=== PATIENT | male | born 2000 | race African-American/Black ===

== ENCOUNTER 2021-11-21 18:52 | Inpatient (IN) ==
--- NOTE | 2021-11-21 19:02 | Emergency Department Note ---
Impression & Plan Foreign body in urethra, Foreign body ingestion, Depression ED Provider Note NAME: AL [id number] KRYSTLE AGE: 21 SEX: M : 2000 ARRIVES VIA: Walk-In INFORMANT: Patient, ED PROVIDER(S): Lex Mehta MD Chief Complaint: Foreign body ingestion HPI: Patient presents from [facility] after stating that he swallowed a very small thin piece of sheet metal as well as plastic approximately 4:30 PM. Patient also states that he placed metal as well as plastic down his urethra and states that he placed it at the far down his the base of the scrotum. Patient states that he does this because he is in protested and that he is depressed and suicidal. The patient states that he has not been able to urinate. The patient is concerned about a possible kidney or bladder infection. No recent falls or trauma. The patient does have a known history of doing this in the past. Patient states that he feels as though he does have some chest discomfort from the swallowed foreign body. He is currently retaining this on a string in his mouth. ROS: See HPI for pertinent positives and negatives. A total of 10 systems were reviewed and otherwise negative. Past medical history: See below Surgical history: See below Social history: See below Physical Exam: GENERAL: NAD, wearing a mask, non-toxic. Wearing augustin jumpsuit. EYE EXAM: Normal conjunctiva. PERRL, no anisocoria and EOM's grossly intact w/o pain. OROPHARYNX: Moist mucus membranes. Grossly normal dentition. Patient has a string in the left side of the mouth which is attached to a possible foreign body which is not visible in the posterior pharynx. NECK: Supple, no nuchal rigidity, no adenopathy, non-tender. No signs of meningismus. LUNGS: Clear to auscultation. Normal chest wall mechanics. HEART: NSR, no MRG. ABDOMEN: Abdomen soft, non-tender, normo-active bowel sounds, no masses, no rebound or guarding. BACK: No CVA TTP. SKIN: No rashes and no bruising. : Circumcised, bilateral testes descended, no obvious foreign bodies visua lized at the urethral meatus. UPPER EXTREMITIES: Upper extremities are grossly normal. LOWER EXTREMITIES: Grossly normal, no edema. NEURO EXAM: A&O x3, cranial nerves II-XII grossly intact, normal speech, moves all 4 extremities on command w/o issue. Differential diagnoses: Foreign body, esophageal tear, impaction, Schatzki ring, esophageal stricture, urethral foreign body among others were considered. Course: Patient was seen and evaluated the bedside. Full history physical exam was performed. Imaging Studies: See Below Cardiac monitoring: An order was placed for continuous cardiac monitoring. The monitor shows a rate of 92 with sinus rhythm. MDM: Patient was seen due to concern for placing multiple foreign bodies in the urethra as well as swallowing multiple foreign bodies. Patient did have bladder completed along with CTs of the chest abdomen pelvis to further evaluate for the plastic medical foreign bodies. Patient was noted to likely have 2 foreign bodies 1 within the stomach the other within the small bowel. Patient was also noted to have additional foreign bodies within the urethra. I did speak with the on-call trucking supervisor Dr. Villalobos who recommended that the patient undergo endoscopy for removal of the foreign body. The patient is amenable to having the procedure completed. I did speak the on- call urology service Pritesh Bateman PA-C who did evaluate the patient. I did speak the on-call hospitalist Dr. Davis and the patient was admitted to [facility] medicine service. Past Med/Surg History Medical History Depression H/O swallowed foreign body Surgical History H/O esophagogastroduodenoscopy Social History Smoking Status: Former smoker Tobacco Type: Cigarettes Preferred Language: Lao Current Living Situation Comment: Incarcerated at [facility] Feels Safe at Home: Yes Allergies Allergies Allergy/AdvReac Type Severity Reaction Status Date / Time No Known Allergies Allergy Unverified 11/21/21 20:20 Home Meds Home Medications Medication Instructions Recorded Confirmed paroxetine HCl 30 mg tablet 30 mg PO HS 12/02/20 11/21/21 ibuprofen 600 mg tablet 600 mg PO TID PRN 11/21/21 11/21/21 mirtazapine 30 mg tablet 30 mg PO HS 11/21/21 11/21/21 Results & Data (ED) Vital Signs Vital Signs - 24 hr 11/21/21 18:57 11/21/21 19:27 11/21/21 21:00 Temperature 36.9 C Temperature Source Oral Pulse Rate 97 H 87 Pulse Rate [Apical] 87 90 Pulse Rhythm Regular Pulse Rhythm [Apical] Regular Pulse Strength Normal Pulse Strength [Apical] Normal Respiratory Rate 16 17 18 Respiratory Effort / Characteristics Non-Labored Spontaneous Respiratory Depth Normal Respiratory Pattern Regular Blood Pressure 143/81 H Blood Pressure [Right Arm] 147/80 H 143/75 H Blood Pressure Mean 101 Blood Pressure Mean [Right Arm] 102 97 Blood Pressure Position Sitting Pulse Oximetry 100 100 99 Oxygen Delivery Method Room Air Room Air Room Air Sepsis Recent Fever Within 48 Hours No Sepsis New/Unexplained Change in Mental Status No Sepsis Action Taken by Nursing No Action Required Home Medications Current Medication List: was personally reviewed by me Laboratory Data Attestation: I reviewed the patient's lab results. Result diagrams: 11/21/21 19:44 11/21/21 19:44 Lab Results 11/21/21 11/21/21 11/21/21 Range/Units 19:44 19:44 19:48 WBC 8.28 (4.8-10.8) K/uL RBC 5.06 (4.7-6.1) M/uL Hgb 12.5 L (14.0-18.0) g/dL Hct 38.0 L (42-52) % MCV 75.1 L (80-100) fL MCH 24.7 L (25-34) pg MCHC 32.9 (32-36) g/dL RDW Std Deviation 39.5 (36.4-46.3) fL RDW Coeff of Bassem 14.3 (11.5-14.5) % Plt Count 232 (130-400) K/uL MPV 10.9 H (7.4-10.4) fL Immature Gran % (Auto) 0.1 % Neut % (Auto) 68.8 % Lymph % (Auto) 23.6 % [place] % (Auto) 6.6 % Eos % (Auto) 0.8 % Baso % (Auto) 0.1 % Neut # (Auto) 5.69 (1.4-6.5) K/uL Lymph # (Auto) 1.95 (1.2-3.4) K/uL [place] # (Auto) 0.55 (0.11-0.59) K/uL Eos # (Auto) 0.07 (0-0.5) K/uL Baso # (Auto) 0.01 (0-0.2) K/uL Immature Gran # (Auto) 0.01 (0.00-0.02) K/uL Sodium 142 (136-145) mmol/L Potassium 4.1 (3.5-5.1) mmol/L Chloride 107 (98-107) mmol/L Carbon Dioxide 27 (21-32) mmol/L Anion Gap 8 (3-11) BUN 31 H (6-23) mg/dl Creatinine 1.61 H (0.6-1.4) mg/dl Est Cr Clr Drug Dosing 74.9 ml/min Est GFR ( Amer) 69.8 ml/min Est GFR (Non-Af Amer) 60.2 ml/min BUN/Creatinine Ratio 19.3 (10-20) Glucose 75 (70-99(Fasting)) mg/dl Calcium 9.6 (8.5-10.1) mg/dl Total Bilirubin 0.8 (0.2-1.0) mg/dl AST 40 H (13-39) U/L ALT 27 (7-52) U/L Alkaline Phosphatase 66 (34-104) U/L Total Protein 8.1 (6.0-8.3) gm/dl Albumin 4.8 (3.4-5.0) gm/dl Globulin 3.3 (2.5-4.0) gm/dl Albumin/Globulin Ratio 1.5 (0.9-2) SARS-CoV-2, RNA, NAAT NEGATIVE (NEGATIVE) Administered Medications Discontinued Medications Sodium Chloride (Nss 1000ml) 1,000 mls @ 999 mls/hr IV .Q1H1M ONE Stop: 11/21/21 20:28 Last Infusion: 11/21/21 21:48 Dose: 0 mls/hr Documented by: [id number] Admin: 11/21/21 19:46 Dose: 999 mls/hr Documented by: [id number] Cefazolin Sodium (Ancef 2000mg) 2,000 mg in 15 mls @ 3.75 mls/min IV ONCE ONE Stop: 11/22/21 00:43 Last Admin: 11/21/21 23:09 Dose: 3.75 mls/min Documented by: [id number] Imaging Data Radiologist's Impression: Abdomen/Pelvis CT 11/21/21 19:[address] WITHOUT CONTRAST CT DOSE: HISTORY: states placed metal and plastic in his urethra TECHNIQUE: Multiaxial CT images of the abdomen and pelvis were performed without contrast. A dose lowering technique was utilized adhering to the principles of ALARA. COMPARISON STUDY: KUB 12/02/2020. FINDINGS: The lung bases are clear. No pneumoperitoneum. No pneumatosis. No acute fractures within the visualized osseous structures. The unenhanced liver, gallbladder, pancreas, spleen, adrenal glands, and kidneys are unremarkable. No hydronephrosis. No retroperitoneal lymphadenopathy or hematoma. The bladder is unremarkable. No pelvic free fluid. No bowel wall thickening or obstruction. Suture material within the left upper quadrant suggesting prior bowel surgery. There is a 1 cm metallic foreign body within the stomach. There is a metallic density anterior to the right kidney which could represent an additional foreign body within the adjacent small bowel. There is an elongated 5 cm foreign body within the penile/bulbous urethra which contains both metal and plastic components. IMPRESSION: 1. There is a 1 cm metallic foreign body within the stomach. 2. There is a small metallic density anterior to the right kidney which could represent an additional foreign body within the adjacent small bowel. 3. There is an elongated 5 cm foreign body within the penile/bulbous urethra which contains both metal and plastic components. ACT 112: Negative or not required by law. Electronically signed by: Richard Aburto M.D. 11/21/2021 8:[address] 11/21/21 19:26 CT OF THE CHEST WITHOUT IV CONTRAST CLINICAL HISTORY: Swallowed metal/plastic, tied to string COMPARISON STUDY: Chest radiograph December 02, 2020. CT DOSE: 551.28 mGy.cm TECHNIQUE: Axial images of the chest were obtained without IV contrast. Images were reviewed in the axial, sagittal, and coronal planes. IV contrast was not administered for this examination. Automated exposure control was utilized for the study. A dose lowering technique was utilized adhering to the principles of ALARA. FINDINGS: No enlarged axillary, mediastinal or hilar lymph nodes are present. The size of the heart is normal. There is no pericardial effusion. Residual thymus is noted. No radiopaque foreign bodies within the chest are noted. Note is made of a 9 mm metallic density within the proximal body of the stomach. This suggests an ingested foreign body. There are postoperative findings of the stomach. No pneumothorax or pleural effusion is noted. There is no consolidation to suggest pneumonia. Central airways are patent. There are no suspicious pulmonary nodules. Abdomen and pelvis CT will be reported separately. IMPRESSION: 1. 9 mm metallic density within the proximal body of the stomach suggestive of an ingested foreign body. 2. No radiopaque foreign bodies within the chest. 3. No acute process within the chest. ACT 112: Negative or not required by law. Electronically signed by: Layton Liu M.D. 11/21/2021 8:32 PM Discharge Plan Visit Data Chief Complaint: Foreign Body Stated Complaint: SWOLLOWED METAL ED Provider: Lex Mehta Discharge Problem: Foreign body in urethra, Foreign body ingestion, Depression Patient Disposition: Admitted As Inpatient Discharge Instructions Interventions: ED Discharge Assessment Last Done: 11/21/21 22:24
[2021-11-21] MEDS ORDERED: SODIUM CHLORIDE 0.9% 1000ML 1,000 ML IV ONE (19:28)
[2021-11-21 19:59] LABS: Basophils # (auto) 0.01 K/uL (0-0.2); Basophils % (auto) 0.1 %; Eosinophils # (auto) 0.07 K/uL (0-0.5); Eosinophils % (auto) 0.8 %; Hemoglobin 12.5 g/dL (14.0-18.0); Immature Granulocytes # (auto) 0.01 K/uL (0.00-0.02); Immature Granulocytes % (auto) 0.1 %; Lymphocytes # (auto) 1.95 K/uL (1.2-3.4); Lymphocytes % (auto) 23.6 %; Mean Corpuscular Hemoglobin 24.7 pg (25-34); Mean Corpuscular Hgb Conc 32.9 g/dL (32-36); Mean Corpuscular Volume 75.1 fL (80-100); Mean Platelet Volume 10.9 fL (7.4-10.4); Monocytes # (auto) 0.55 K/uL (0.11-0.59); Monocytes % (auto) 6.6 %; Neutrophils # (auto) 5.69 K/uL (1.4-6.5); Neutrophils % (auto) 68.8 %; Platelet Count 232 K/uL (130-400); RDW Coefficient of Variation 14.3 % (11.5-14.5); RDW Standard Deviation 39.5 fL (36.4-46.3); Red Blood Count 5.06 M/uL (4.7-6.1); White Blood Count 8.28 K/uL (4.8-10.8)
[2021-11-21 20:17] LABS: Albumin Globulin Ratio 1.5 (0.9-2); Albumin Level 4.8 gm/dl (3.4-5.0); BUN Creatinine Ratio 19.3 (10-20); Bilirubin,Total 0.8 mg/dl (0.2-1.0); Calcium 9.6 mg/dl (8.5-10.1); Creatinine Clr Calc Pharmacy 74.9 ml/min; Est GFR (African American) 69.8 ml/min; Est GFR (Non-African American) 60.2 ml/min; Globulin 3.3 gm/dl (2.5-4.0); Potassium 4.1 mmol/L (3.5-5.1); Total Protein 8.1 gm/dl (6.0-8.3)
--- NOTE | 2021-11-21 20:33 | CT Scan Report ---
CT OF THE CHEST WITHOUT IV CONTRAST CLINICAL HISTORY: Swallowed metal/plastic, tied to string COMPARISON STUDY: Chest radiograph December 02, 2020. CT DOSE: 551.28 mGy.cm TECHNIQUE: Axial images of the chest were obtained without IV contrast. Images were reviewed in the axial, sagittal, and coronal planes. IV contrast was not administered for this examination. Automat ed exposure control was utilized for the study. A dose lowering technique was utilized adhering to t he principles of ALARA. FINDINGS: No enlarged axillary, mediastinal or hilar lymph nodes are present. The size of the heart is normal. There is no pericardial effusion. Residual thymus is noted. No radiopaque foreign bodies w ithin the chest are noted. Note is made of a 9 mm metallic density within the proximal body of the st omach. This suggests an ingested foreign body. There are postoperative findings of the stomach. No pn eumothorax or pleural effusion is noted. There is no consolidation to suggest pneumonia. Central airw ays are patent. There are no suspicious pulmonary nodules. Abdomen and pelvis CT will be reported sep arately. IMPRESSION: 1. 9 mm metallic density within the proximal body of the stomach suggestive of an ingested foreign allen dy. 2. No radiopaque foreign bodies within the chest. 3. No acute process within the chest. ACT 112: Negative or not required by law. Electronically signed by: Layton Liu M.D. 11/21/2021 8:32 PM
--- NOTE | 2021-11-21 20:45 | CT Scan Report ---
ABDOMEN AND PELVIS CT WITHOUT CONTRAST CT DOSE: HISTORY: states placed metal and plastic in his urethra TECHNIQUE: Multiaxial CT images of the abdomen and pelvis were performed without contrast. A dose lo wering technique was utilized adhering to the principles of ALARA. COMPARISON STUDY: KUB 12/02/2020. FINDINGS: The lung bases are clear. No pneumoperitoneum. No pneumatosis. No acute fractures within th e visualized osseous structures. The unenhanced liver, gallbladder, pancreas, spleen, adrenal glands, and kidneys are unremarkable. No hydronephrosis. No retroperitoneal lymphadenopathy or hematoma. The bladder is unremarkable. No pelvic free fluid. No bowel wall thickening or obstruction. Suture mater ial within the left upper quadrant suggesting prior bowel surgery. There is a 1 cm metallic foreign b marce within the stomach. There is a metallic density anterior to the right kidney which could represen t an additional foreign body within the adjacent small bowel. There is an elongated 5 cm foreign body within the penile/bulbous urethra which contains both metal and plastic components. IMPRESSION: 1. There is a 1 cm metallic foreign body within the stomach. 2. There is a small metallic density anterior to the right kidney which could represent an additional foreign body within the adjacent small bowel. 3. There is an elongated 5 cm foreign body within the penile/bulbous urethra which contains both meta l and plastic components. ACT 112: Negative or not required by law. Electronically signed by: Richard Aburto M.D. 11/21/2021 8:42 PM
[2021-11-21] MEDS ORDERED: MIDAZOLAM HCL 1 MG/ML 2ML VIAL ONE (21:38)
[2021-11-21] MEDS ORDERED: SUCCINYLCHOLINE 100MG/5ML SYR IV ONE (21:38)
[2021-11-21] MEDS ORDERED: PROPOFOL IV EMULSION 10 MG/ML 20 ML VIAL IV ONE (21:38)
[2021-11-21] MEDS ORDERED: fentaNYL citrate 100 MCG/2 ML VIAL ONE ×2 (21:39→22:52)
--- NOTE | 2021-11-21 21:46 | History & Physical Report ---
Date of Service November 21, 2021 Assessment & Plan (1) Foreign body ingestion: Plan: Stefan Simon is a 21yo male with PMHx significant for depression and self- injurious behavior presented from [facility] on 11/21 after intentionally ingesting a sharp plastic object as well as intentionally shoving a plastic object up his urethra earlier in the day. Foreign Body Ingestion CT C/A/P showing metallic foreign body ~1cm in stomach with second metallic foreign body in adjacent small bowel. - GI consulted - will take patient for urgent EGD - will give Protonix 80mg IV loading dose now in preparation for EGD, given patient's recent history of hematochezia and mild anemia on presentation - NPO for EGD - s/p 2L NSS bolus - continue with LR @120cc/hr - PRN Tylenol 1g IV Q8H for pain (patient denies current pain) - trend CBC in AM Foreign Body Insertion in Urethra CT A/P showing elongated 5 cm foreign body within the penile/bulbous urethra which contains both metal and plastic components. - Urology consulted - will take patient for urgent procedure to remove foreign body - will try to time this together with EGD Depression; Self-Injurious Behavior Denies SI/HI currently but self-injurious behavior has been a recurrent problem for this patient. - Psych consult appreciated FEN/GI: NPO, LR @120cc/hr DVT Prophylaxis: contraindicated due to upcoming procedures Code Status: full code Disposition: PCU (2) Foreign body in urethra: (3) Depression: (4) 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: History of Present Illness Chief Complaint: foreign body ingestion Primary Care Provider: [facility] Stefan Simon is a 21yo male with PMHx significant for depression and self- injurious behavior presented from [facility] on 11/21 after intentionally ingesting a sharp plastic object as well as intentionally shoving a plastic object up his urethra earlier in the day. Patient has done this several times before since being in [facility] - reports that he gets depressed and wants to hurt himself but does not have a plan to kill himself. No active SI/HI. Since the ingestion/insertion, patient denies nausea/vomiting/hematemesis although he does have slight burning substernal pain. Does report bleeding from urethra after insertion but that this subsided after ~1 hour and has not recurred. Denies pain in penis/groin/scrotum, although has had trouble urinating since the incident. Of note patient does report dark blood per rectum with bowel movements over the last several weeks but denies diarrhea or pain with BMs. Denies any ingestion since the last time he was in our ED ~1 year ago for intentional ingestion. In the ED the patient was borderline hypertensive and tachycardic. Labs significant for Hgb 12.5 (no previous), BUN 31/Cr 1.61 (no previous). Chest CT showed 9 mm metallic density within the proximal body of the stomach suggestive of an ingested foreign body. CT A/P showed 1 cm metallic foreign body within the stomach, small metallic density anterior to the right kidney which could represent an additional foreign body within the adjacent small bowel, and elongated 5 cm foreign body within the penile/bulbous urethra which contains both metal and plastic components. Patient was given 2L NSS boluses in ED. Allergies Allergy/AdvReac Type Severity Reaction Status Date / Time No Known Allergies Allergy Unverified 11/21/21 20:20 Home Medications Medication Instructions Recorded Confirmed Type paroxetine HCl 30 mg tablet 30 mg PO HS 12/02/20 11/21/21 History ibuprofen 600 mg tablet 600 mg PO TID PRN 11/21/21 11/21/21 History mirtazapine 30 mg tablet 30 mg PO HS 11/21/21 11/21/21 History Past Med/Surg History Medical History Depression H/O swallowed foreign body Surgical History H/O esophagogastroduodenoscopy Social History Smoking Status: Former smoker Tobacco Type: Cigarettes Second Hand Exposure: Yes; Hx Alcohol Use: No Hx Substance Use: No Preferred Language: Micronesian Communication Ability: Effective It Help Desk Analyst Required: No Beliefs That Will Affect Care: None Current Living Situation: Other Current Living Situation Comment: Incarcerated at [facility] Feels Safe at Home: Yes Assistive Devices: None Review of Systems Review of Systems: All systems reviewed & are unremarkable except as noted in HPI & below Physical Exam Physical Exam: General: A&Ox3. NAD. Cooperative. HEENT: Atraumatic, normocephalic. No mouth/tongue lacerations visualized. Pulm: CTAB A&P. -wheezes, -rales, -rhonchi. Symmetrical chest rise. No increase work of breathing. No respiratory distress. Cardiac: RRR, -mrg. Radial pulses intact and symmetrical. Abdominal: soft, non-tender, non-distended, BS x 4 : penis without overt deformity and non-tender to palpation, without visible blood or drainage from urethra. No visible laceration to urethra or penis. Skin: warm, dry, no rash Results & Data Results & Data ([facility]) Vital Signs (Past 12 Hours) Vital Signs Temp Pulse Pulse Resp BP BP Pulse Ox 11/21/21 19:27 87 87 17 147/80 H 100 11/21/21 18:57 36.9 C 97 H 16 143/81 H 100 Supervising Physician Co-Signing Physician Notes Attending addendum: I have physically seen this patient, have supervised the medical residents act ivities, and agree with the H&P unless as otherwise noted. Assessment and Plan: Metallic foreign bodies in stomach and small bowel- N.p.o. For emergent EGD by Dr. Villalobos Protonix IV Received 2 L normal saline bolus in the ED Placed on LR at high 20 mL/h Acetaminophen 1 g IV every 8 hours as needed mild pain or fever Repeat laboratories in a.m. Foreign body in urethra, metallic and plastic components- Urology to remove foreign bodies emergently, coordinating sedation with GI Depression/self-injury- Consult psychiatry Remaining orders and notations as noted Resident Activity Tracking Resident Involvement: Resident Care Provided Care Provided: Adult [facility] Medicine
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
[2021-11-21] MEDS ORDERED: ACETAMINOPHEN 1000 MG/100 ML IV IV PRN (21:52)
[2021-11-21] MEDS ORDERED: PANTOprazole 80 MG in DEXTROSE 5% 100 ML IV STA (21:53)
--- NOTE | 2021-11-21 21:56 | Gastrointestinal Consultation ---
Date of Consultation November 21, 2021 Assessment & Plan (1) Foreign body ingestion: (2) Constipation: (3) 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: metallic object ingestion, as well as constipation and hematochezia that has been ongoing, multiple objects (1 in stomach 1 in small bowel) recs: --NPO --EGD now to remove foreign body --admit to medicine risks/benefits and procedure discussed with patient, who agrees to proceed Luc Villalobos MD Gastroenterology History of Present Illness History of Present Illness 21 yo male with hx foreign body ingestion, depression here with foreign body ingestion. He swallowed a piece of metal with a sharp/jagged edge attached to a string earlier this afternoon, and he also placed another piece of metal and plastic down his urethra. He says he was going through mental health issues and this was his way of acting out. He says he has been having some slight abdominal pains since the ingestion, denies n/v, dysphagia. Notes constipation and significant straining and hematochezia. He has ingested foreign bodies in the past, in [address] CT imaging shows 1 cm metallic object in stomach and another object in the small intestine. labs reviewed, mild anemia noted, BUN mildly elevated. Allergies Allergy/AdvReac Type Severity Reaction Status Date / Time No Known Allergies Allergy Unverified 11/21/21 20:20 Home Medications Medication Instructions Recorded Confirmed Type paroxetine HCl 30 mg tablet 30 mg PO HS 12/02/20 11/21/21 History ibuprofen 600 mg tablet 600 mg PO TID PRN 11/21/21 11/21/21 History mirtazapine 30 mg tablet 30 mg PO HS 11/21/21 11/21/21 History Patient History Medical History Depression H/O swallowed foreign body Surgical History H/O esophagogastroduodenoscopy Social History Smoking Status: Former smoker Tobacco Type: Cigarettes Preferred Language: Zimbabwean Current Living Situation Comment: Incarcerated at [facility] Feels Safe at Home: Yes Review of Systems Constitutional: no fever, no chills and no weight loss Eyes: as per Subjective / HPI Ear, Nose, Mouth, Throat: as per Subjective / HPI Respiratory: no dyspnea and no dyspnea on exertion Cardiovascular: no chest pain and no palpitations Gastrointestinal: as per Subjective / HPI Musculoskeletal: no joint pain and no swelling Integumentary: no rash and no lesions Neurologic: no numbness and no paresthesia Psychiatric: no depression and no anxiety Endocrine: no fatigue Hematologic / Lymphatic: no easy bleeding and no easy bruising Physical Exam Constitutional: WD/WN, vitals as above Eyes: EOM intact bilaterally Neck: normal visual inspection Respiratory: normal respiratory effort, lungs clear to auscultation Cardiovascular: RRR, no murmur, no edema Gastrointestinal (Abdomen): Inspection/Auscultation: abdomen normal to insp ection; abdomen not distended Percussion/Palpation: abdomen soft; abdomen nontender and no hepatosplenomegaly Musculoskeletal: Extremities: no cyanosis Gait: normal gait Skin: no rashes, warm and dry Neurologic: moves all extremities Psychiatric: A+Ox3, euthymic affect Results & Data ([facility]) Vital Signs (Past 12 Hours) Vital Signs Temp Pulse Pulse Resp BP BP Pulse Ox 11/21/21 21:00 90 18 143/75 H 99 11/21/21 19:27 87 87 17 147/80 H 100 11/21/21 18:57 36.9 C 97 H 16 143/81 H 100 PG Care Time/CCT Total # of Minutes Spent Total Time Spent with Patient: Total time spent is greater than 50% in coordination of care (as documented) at patient's floor/unit and/or counseling patient: Coding Level of Care Code 48324 Inpt Consult Level 4 Diagnoses Foreign body ingestion T18.9XXA Constipation K59.00 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 K92.1
[2021-11-21] MEDS ORDERED: ATROPINE SULFATE 0.1 MG/ML 10ML SYR IV PRN (22:35)
[2021-11-21] MEDS ORDERED: fentaNYL citrate 100 MCG/2 ML VIAL IV PRN (22:35)
[2021-11-21] MEDS ORDERED: ONDANSETRON INJ 2 MG/ML 2 ML VIAL IV PRN (22:35)
[2021-11-21] MEDS ORDERED: ePHEDrine sulfate 50 MG/ML AMP IV PRN (22:35)
[2021-11-21] MEDS ORDERED: HYDROmorphone INJ 2 MG/ML SYR/VIAL IV PRN (22:35)
--- NOTE | 2021-11-21 22:35 | Anesthesiology Consultation ---
Date of Service November 21, 2021 Assessment & Plan ASA ASA3E Proposed Anesthesia Anesthesia Type: General Risk / Benefits Reviewed With: PT / POA / Parent / Guardian, Accepts Plan and Informed Consent Obtained Additional Comments: pt full stomach. pt states he aspirated last time he did this. History Surgery Operation Date: 11/21/21 22:00 Proposed Procedures p Esophagogastroduodenoscopy(Not Applicable) - Luc Villalobos MD Height/Weight Height: 5 ft 10 in Weight: 80 kg Allergies Allergy/AdvReac Type Severity Reaction Status Date / Time No Known Allergies Allergy Unverified 11/21/21 20:20 Medications Home Medications Medication Instructions Recorded Confirmed Last Taken paroxetine HCl 30 mg tablet 30 mg PO HS 12/02/20 11/21/21 11/20/21 18:30 ibuprofen 600 mg tablet 600 mg PO TID PRN 11/21/21 11/21/21 11/20/21 mirtazapine 30 mg tablet 30 mg PO HS 11/21/21 11/21/21 11/20/21 18:30 NPO Date Last Intake of Fluids: 11/21/21 Time Last Intake of Fluids: 16:00 Last Intake of Fluids Comment: urine Date Last Intake of Solids: 11/21/21 Time Last Intake of Solids: 16:30 Last Intake of Solids Comment: hamburger, potatoes, corn Past Medical History Medical History Depression H/O swallowed foreign body Exercise / Class Metabolic Activity II 4-5 Yardwork/Stairs/Walk up hill Past Surgical History Surgical History H/O esophagogastroduodenoscopy Past Anesthesia History No Hx of Anesthesia Complications and No Family Hx of Anesthesia Complications History of PONV No Hx of PONV and No Hx of Motion Sickness Social History Smoking Status: Former smoker Review of Systems denies fever/cough/ colds/ chest pain/ SOB/ YAHIR denies YAHIR Physical Exam Vital Signs Last Vital Signs Temp 36.9 C 11/21/21 18:57 Pulse 90 11/21/21 21:00 Resp 18 11/21/21 22:24 BP 143/75 H 11/21/21 21:00 Pulse Ox 99 11/21/21 21:00 ENMT Mouth: no TMJ abnormality and no dentition abnormality Thyromental Distance: > or= 3.5 Finger Breadths Mallampati Class: II Neck neck extension not limited Respiratory normal respiratory effort; no respiratory distress Auscultation: lungs clear to auscultation bilaterally Cardiovascular Rate/Rhythm: regular rate and regular rhythm Neurologic moves all extremities Psychiatric Orientation: alert and oriented x 3 Testing Laboratory Results 11/21/21 19:44 11/21/21 19:44
[2021-11-21] MEDS ORDERED: DEXAMETHASONE SOD INJ 4 MG/ML VIAL ONE (22:57)
[2021-11-21] MEDS ORDERED: ceFAZolin 330 MG/ML 1 GM VIAL ONE (22:57)
[2021-11-21] MEDS ORDERED: ONDANSETRON INJ 2 MG/ML 2 ML VIAL ONE (22:57)
--- NOTE | 2021-11-21 23:13 | Procedure Note ---
Procedure Note Date of Service November 21, 2021 Note GI procedure note EGD findings: a piece of plastic (1 cm long) with a sharp edge covered in a blue cloth and string were found in the stomach, removed via Luz net and alligator forceps. gastritis in stomach, bx'd. no foreign body seen in the examined portion of duodenum. recs: --miralax BID to help pass the small bowel foreign body and treat his constipation and hemorrhoids --serial KUBs --supportive care, IVFs --consider psychiatry consult for his depression while inpatient Luc Villalobos MD Gastroenterology Coding
--- NOTE | 2021-11-21 23:16 | GI REPORT ---
Patient Name: Stefan Simon Procedure Date: 11/21/2021 10:10 PM Date of : 2000 Admit Type: Emergency Department Age: 21 Gender: Male Attending MD: Luc Villalobos MD Procedure: Upper GI endoscopy Providers: Luc Villalobos MD Referring MD: Lex Mehta M.d. Indications: Foreign body in the stomach Medicines: Monitored Anesthesia Care Complications: No immediate complications. Estimated blood loss: None. Estimated Blood Loss: Estimated blood loss: none. Procedure: Pre-Anesthesia Assessment: - Prior Anticoagulants: The patient has taken no previous anticoagulant or antiplatelet agents. - ASA Grade Assessment: II - A patient with mild systemic disease. After obtaining informed consent, the endoscope was passed under direct vision. Throughout the procedure, the patient's blood pressure, pulse, and oxygen saturations were monitored continuously. The Endoscope was introduced through the mouth, and advanced to the second part of duodenum. The upper GI endoscopy was accomplished without difficulty. The patient tolerated the procedure well. Findings: The examined esophagus was normal. Sharp plastic and cloth and string were found in the gastric fundus. Removal was accomplished with a Luz net and alligator forceps. Estimated blood loss: none. Diffuse mild inflammation characterized by erythema was found in the stomach. Biopsies were taken with a cold forceps for Helicobacter pylori testing. Estimated blood loss: none. The duodenal bulb and second portion of the duodenum were normal. No evidence of foreign body in examined portion of duodenum. Impression: - Normal esophagus. - Sharp plastic and cloth and string were found in the stomach. Removal was successful. - Gastritis. Biopsied. - Normal duodenal bulb and second portion of the duodenum. Recommendation: - [facility]. --miralax BID to help pass the small bowel foreign body and treat his constipation and hemorrhoids --serial KUBs --supportive care, IVFs --consider psychiatry consult for his depression while inpatient Luc Villalobos MD 11/21/2021 11:16:28 PM This report has been signed electronically. Note Initiated On: 11/21/2021 10:10 PM Number of Addenda: 0 I attest to the content of the Intraoperative Record and orders documented therein, exceptions below {[id number]}
[2021-11-21] MEDS ORDERED: KETOROLAC 30 MG/ML VIAL ONE (23:20)
[2021-11-21] MEDS ORDERED: PHENYLEPHRINE HCL 10 MG/ML VIAL ONE (23:24)
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
[2021-11-21] MEDS ORDERED: PROPOFOL IV EMULSION 10 MG/ML 100 ML VIAL IV ONE (23:50)
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
[2021-11-22] MEDS ORDERED: POLYETHYLENE (MIRALAX) 17 GM PACK PO SCH (00:30)
[2021-11-22] MEDS ORDERED: ceFAZolin 2000MG 2,000 MG/15 ML SYR IV ONE (00:40)
[2021-11-22] MEDS: LACTATED RINGER'S 1,000 ML IV SCH ×2 (01:22→10:39)
[2021-11-22 05:00] LABS: Appearance Urine Clear (Clear); Bacteria Urine Automated Negative (Negative); Bilirubin Urine Negative (Negative); Blood Urine 2+ (Negative); Color Urine Yellow; Glucose Urine UA Negative (Negative); Ketones Urine 3+ (Negative); Leukocyte Esterase Urine Negative (Negative); Nitrite Urine Negative (Negative); Protein Urine Negative (Negative); Specific Gravity Urine 1.026 (1.000-1.030); Urobilinogen Urine Negative (Negative)
[2021-11-22 06:30] LABS: Hematocrit (blood only) 35.9 % (42-52); Hemoglobin 11.6 g/dL (14.0-18.0); Immature Granulocytes # (auto) 0.01 K/uL (0.00-0.02); Immature Granulocytes % (auto) 0.1 %; Lymphocytes # (auto) 0.65 K/uL (1.2-3.4); Lymphocytes % (auto) 8.3 %; Mean Corpuscular Hemoglobin 24.3 pg (25-34); Mean Corpuscular Hgb Conc 32.3 g/dL (32-36); Mean Corpuscular Volume 75.1 fL (80-100); Mean Platelet Volume 11.4 fL (7.4-10.4); Monocytes # (auto) 0.07 K/uL (0.11-0.59); Monocytes % (auto) 0.9 %; Neutrophils # (auto) 7.11 K/uL (1.4-6.5); Neutrophils % (auto) 90.7 %; Platelet Count 222 K/uL (130-400); RDW Coefficient of Variation 14.3 % (11.5-14.5); RDW Standard Deviation 39.5 fL (36.4-46.3); Red Blood Count 4.78 M/uL (4.7-6.1); White Blood Count 7.84 K/uL (4.8-10.8)
[2021-11-22 06:52] LABS: Albumin Globulin Ratio 1.3 (0.9-2); BUN Creatinine Ratio 21.9 (10-20); Bilirubin,Total 0.8 mg/dl (0.2-1.0); Calcium 8.9 mg/dl (8.5-10.1); Creatinine Clr Calc Pharmacy 114.9 ml/min; Magnesium 1.8 mg/dl (1.7-2.4); Potassium 4.1 mmol/L (3.5-5.1)
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
--- NOTE | 2021-11-22 08:57 | XRay Report ---
KUB HISTORY: Follow-up foreign body COMPARISON: Abdomen and pelvis CT 11/21/2021. FINDINGS: The bowel gas pattern is unremarkable. There are no dilated loops of small bowel to suggest an obstruction. No renal calculi. No ureteral calculi. No pneumoperitoneum or pneumatosis. There is a 1 cm metallic foreign body within the right side of the abdomen likely within the ascending colon. This appears to be a pen tip. A Hernandez catheter is noted. Suture material within the left upper quadr ant consistent with prior surgery. IMPRESSION: There is a 1 cm metallic foreign body within the right side of the abdomen likely within the ascendin g colon. This appears to be a pen tip. ACT 112: Negative or not required by law. Electronically signed by: Richard Aburto M.D. 11/22/2021 8:56 AM
[2021-11-22] MEDS: POLYETHYLENE (MIRALAX) 17 GM PACK PO SCH ×2 (09:42→20:30)
[2021-11-22] MEDS: DOCUSATE SODIUM 100 MG CAP PO SCH ×2 (09:42→10:16)
[2021-11-22] MEDS: DOCUSATE SODIUM/SENNA 50/8.6MG TAB PO SCH ×2 (10:10→10:21)
--- NOTE | 2021-11-22 10:28 | Hospitalist Progress Note ---
Date of Service November 22, 2021 Assessment & Plan (1) Foreign body ingestion: Plan: Mr. Simon is a 21 year old male with a PMH of foreign body ingestion 1.5 years ago, suicidal ideation, schizophrenia, depression and anxiety who presents after ingestion of a plastic foreign body on a string with attempts to pull it up through his esophagus repeatedly with intent to rip his esophagus as well as insertion of a long tubular foreign body into his urethra. On admission, a third metal foreign body was discovered on imaging in his small intestine that the patient does not remember ingesting. He states he ingested/inserted these objects at 4:30 pm on 11/21 Yesterday on 11/21 late evening: * GI performed esophagogastroduodenoscopy with successful Foreign Body Removal. No significant injury noted from ingestion of the foreign body. * Gastritis noted and was biopsied. Results pending 3rd foreign body that the patient denies ingesting moved from small intestine to ascending colon, monitored by KUB and repeat abdominal exams. (2) Foreign body in urethra: Plan: Urology performed cystoscopy with successful Foreign Body Removal. No significant injury or scarring noted from ingestion of the foreign body. * Urology recommends ruiz catheter for 1 week that can be removed in alf * Urine color today is a medium yellow, no gross hematuria * Does complain of left flank pain which is tender to CVA testing and palpation of ribs on left flank * Creatinine on admission 1.61, reduced to 1.05 today * UA showed +ketones and RBCs but not suspicious for UTI (3) 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: Plan: Patient reports red blood in his stool for 1.5 weeks prior to ingesting foreign objects on 11/21. He states blood was sometimes mixed into the stool and sometimes coating the stool. He has also had sharp pain below his umbilicus when defecating that goes away after BM. Due to timing of this bleeding preceding ingestion of foreign object on 11/21, this is likely due to the 3rd foreign object seen in his lower GI on admission that the patient does not remember ingesting. * repeat KUB tomorrow AM to track passage of foreign object * Patient is hemodynamically stable, continue to monitor. D/c'd IV fluids due to good PO intake. * Hbg 12.5 ->11.6 today, Hct 38 -> 35.9, MCV 75.4, WBC 7.84, electrolytes wnl. Repeat CBC if patient becomes hemodynamically unstable. (4) Auditory hallucination: Plan: Patient states he was diagnosed with schizophrenia prior to age 15. He states that he started having auditory hallucinations prior to starting his alf sentence around age 15. He describes hearing a singular voice, which is always the same person with a deep voice, that feels like it comes from inside his head. The voice is more prominent when he is feeling agitated and angry and often commands him to hurt or kill himself and others. He is usually able to ignore these commands but has trouble ignoring the commands when he gets angry. He used to be more distressed by the voice but has accepted it as part of his no rmal and is not frightened by it anymore. He does endorse paranoia, feeling that small interactions or looks from other people means that they are out to get him and that they are now enemies. Believ es that covid is a hoax but denies any other unusual thoughts. Of note, the patient states that he has been in a segregation block so he has not gotten into altercations with other inmates because he has not interacted with others very much. He does have issues with his guards on his block and states they "were messing with me and shut off my water" for 4-5 days. He states that he drank the water from his toilet and when that ran out, he peed in the bowl and drank his urine because he was thirsty. Unclear if his water being shut off was a delusion or if it occurred. Contacted [facility] and confirmed that the patient was kept in "POC cell" for the last few days due to threats of self harm and suicidality. This POC cell is video monitored / and nurse checks q2 hours. There is no indication that the water was shut off in his cell during the last week or that he drank his own urine. He was provided food trays and hydration. He states he was on Zyprexa up until 8 months ago when he was transferred to [facility] from another institution and that he stopped because he felt like he "had a fresh start and I could work on my mental health again without it". He notes a large amount of weight gain in a short period of time while on the Zyprexa and feeling sedated. However, he feels that it was helpful in reducing the auditory hallucinations. States that he was on aripiprazole a long time ago but does not remember much about how it affected him. States haldol was helpful in the past. Appreciate psychiatry consult for optimization of psychiatric medications. Per psychiatry, will defer to alf psychiatry team but recommend re-trial of Haldol for management of schizophrenia as this was the most effective and well tolerated medication in the past. (5) Depression: Plan: States that he was diagnosed with depression in the past. States that he is feeling actively suicidal currently but has no plan to commit suicide while in the hospital because he does not want to "cause trouble". He states that he has a plan to attempt suicide in the same way by ingesting a foreign object and tr eva to make it rip his esophagus. He had felt suicidal for years until 8 months ago when he moved to a new alf. However, he started feeling suicidal again 3- 4 days ago which prompted this attempt. In alf treated with paroxetine HCL 30mg PO HS and mirtazapine 30mg PO HS. Held on admission, restarted baseline psychiatric meds today. (6) Anxiety: Plan: States he was diagnosed with anxiety in the past. On paroxetine and mirtazapine. Plan: FEN/GI: Normal diet Code Status: Full Code DVT prophylaxis: none, no anticoagulant due to possible GI bleeding, ambulatory Admission and Anticipated Discharge Date Admission Date: November 21, 2021 Supervising Physician Co-Signing Physician Notes I personally examined the patient and verified all tirado points of history and exam, discussed case, and agree with decision making with Alana Eng MS4 some discomfort - when swallowing it cole some going down but not badly, some discomfort from ruiz. otherwise doing reasonably OK. in home sales consultant input greatly appreciated vitals noted nad heent nc at mmm breathing unlabored no accessory muscles good effort abd soft nd nt no guarding/rebound no masses/organomegaly foreign body ingestions - one removed, one to follow although fortunately appears small and fairly low risk for perforation. serial exams, serial KUB, time urethral foreign body - removed by urology, ruiz. schizophrenia - likely re-trial of haldol by primary (alf) psych ARF on admission - now quickly resolved. sounds to have not been drinking much prior to admission - that hx + rapid resolution strongly favor prerenal cause otherwise as above Subjective Patient is comfortable in bed this morning. He reports some pain in his left flank and epigastric area. He states that he was suicidal which prompted the foreign body ingestion. He states that he is still suicidal and plans on ingesting another foreign object once he is back in alf. He has also had sharp pain below his umbilicus and red blood in his stool for 1.5 weeks prior to admission. Review of Systems Review of Systems: no fever, states he has felt cold even when in a warm room Eyes: no changes in vision Respiratory: no SOB or cough Cardiovascular: Additional Comments: no chest pain, some discomfort in epigastric area following ingestion of foreign body, no palpitations Gastrointestinal: some sharp pain while defecating for the last 1.5 weeks along with bright red blood in stool, last BM yesterday. Psychiatric: endorses command auditory hallucinations Physical Exam Constitutional: laying in bed comfortably, handcuffed to bed with 2 officers in room, in no acute distress Respiratory: normal respiratory effort, clear to auscultation bilaterally Cardiovascular: RRR no MRG, no lower extremity edema Gastrointestinal (Abdomen): active bowel sounds, some pain to palpation below umbilicus worse towards pubis Neurologic: Alert and oriented x3 Psychiatric: not responding to internal stimuli currently Results & Data Results & Data ([facility]) Vital Signs (Past 12 Hours) Vital Signs Temp Pulse Pulse Pulse Resp BP Pulse Ox 11/22/21 09:06 86 11/22/21 08:00 36.9 C 102 H 18 109/75 97 11/22/21 04:04 36.8 C 102 H 18 121/67 99 11/22/21 02:00 92 H 18 119/60 93 11/22/21 01:35 89 16 121/61 94 11/22/21 01:00 36.9 C 103 H 20 132/63 96 11/22/21 00:40 36.4 C L 93 H 14 120/85 93 11/22/21 00:30 98 H 16 137/90 96 11/22/21 00:20 105 H 22 147/76 H 95 11/22/21 00:10 106 H 16 119/75 100 11/22/21 00:00 115 H 22 126/85 97 11/21/21 23:50 36.0 C L 93 H 28 H 120/54 L 99 (1) Depression Depression Type: unspecified Qualified Code(s): F32.A - Depression, unspecified (2) Foreign body in urethra Encounter type: initial encounter Qualified Code(s): T19.0XXA - Foreign body in urethra, initial encounter (3) Foreign body ingestion Encounter type: initial encounter Qualified Code(s): T18.9XXA - Foreign body of alimentary tract, part unspecified, initial encounter
--- NOTE | 2021-11-22 11:29 | Psychiatric Consultation ---
Date of Consultation November 22, 2021 Impression / Recommendations Impression 21 yo male with significant psych hx since age 15 s/p foreign body ingestion and SIB, reports SI but means not consistent with report SA. Appears organized and not responding to internal stimuli, ie not grossly psychotic or manic. Certainly foreign body ingestion/SIB is not uncommon in prisoners and often malingering/secondary gain. (1) Schizophrenia: (2) Depression: Depression Type: unspecified Qualified Code(s): F32.A - Depression, unspecified resume Remeron and Paxil when able to take PO patient is 1-on-1 with 2 guards on med floor and will follow nursing home safety protocol on return may benefit from retrial Haldol, defer to nursing home psych Psych History Identifying Data 21 yo male, inmate at [facility], admit for SIB/suicidal gesture, s/p urologic procedure to remove foreign body from urethra (plastic). Consult by hospitalist for co-management given hx of rendon and ongoing SI, guards at bedside and cuffed. Chief Complaint "I was feeling suicidal for 4 days". History of Present Illness The patient reports dx of schizophrenia in his mid teens because of auditory rendon, care was typically while incarcerated, including [facility]. Reports he is from [facility] and incarcerated at [facility] for 8 months. He has been off of Zyprexa during that time, reporting he did not like the weight g ain. His antidepressants were held last night due to procedure. Confirms Remeron and Paxil as listed. He states that his mood has been low there. He has had rendon that are command in nature in the past, had some non specific rendon yesterday but denies "they had much to do with this." States that he swallowed the metal object with intent for it to rupture his esophagus but it was reportedly wrapped with cloth when removed. Paranoia is nonspecific and voiced complaints to medical student on medicine team about his water being shut off. As far as past med trials he noted discontinuing Risperdal due to risk of gynecomastia and that the medication that worked best for him was Haldol. Allergies Allergy/AdvReac Type Severity Reaction Status Date / Time No Known Allergies Allergy Unverified 11/21/21 20:20 Home Medications Medication Instructions Recorded Confirmed Type paroxetine HCl 30 mg tablet 30 mg PO HS 12/02/20 11/21/21 History ibuprofen 600 mg tablet 600 mg PO TID PRN 11/21/21 11/21/21 History mirtazapine 30 mg tablet 30 mg PO HS 11/21/21 11/21/21 History Personal History Beliefs That Will Affect Care: None Patient History Medical History Depression H/O swallowed foreign body Surgical History H/O esophagogastroduodenoscopy Social History Smoking Status: Former smoker Tobacco Type: Cigarettes Second Hand Exposure: Yes; Hx Alcohol Use: No Hx Substance Use: No Preferred Language: Pashto Communication Ability: Effective 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 Beliefs That Will Affect Care: None Current Living Situation: Other Current Living Situation Comment: Incarcerated at [facility] Feels Safe at Home: Yes Assistive Devices: None Physical Exam Psychiatric: Orientation: alert Apperance: appropriately groomed (full face/arm tattoos) Eye Contact: good eye contact Motor Behavior: no abnormal motor movements Speech: normal rate/rhythm/volume of speech Affect: + depressed affect Mood: + depressed mood Thought Process: + concrete thought process Thought Content: no delusions Suicidal Thoughts: denies suicidal intent (in hospital); + reports suicidal thoughts ("mainly yesterday") and + reports suicidal plan ("may try again") Homicidal Thoughts: denies homicidal thoughts Hallucinations: no auditory hallucinations and no visual hallucinations Cognition: attention grossly intact and language grossly intact Insight: + poor insight Judgement: + poor judgement Vital Signs (Past 24 Hours): Last Vital Signs Temp 36.9 C 11/22/21 08:00 Pulse 86 11/22/21 09:06 Resp 18 11/22/21 08:00 BP 109/75 11/22/21 08:00 Pulse Ox 97 11/22/21 08:00 Review of Systems All systems reviewed & are unremarkable except as noted in HPI & below Results & Data ([facility]) Medications Administered Polyethylene Glycol (Polyethylene (Miralax) 17 Gm Pack) 34 gm PO BID WAYNE Stop: 12/22/21 08:59 Last Admin: 11/22/21 09:42 Dose: 34 gm Documented by: [id number] Senna/Docusate Sodium (Docusate Sodium/Senna 50/8.6mg Tab) 1 tab PO QAM WAYNE Stop: 12/22/21 09:59 Last Admin: 11/22/21 10:21 Dose: 1 tab Documented by: [id number] Coding Level of Care Code 36597 U Intl Hosp Care Lvl 2 Diagnoses Schizophrenia F20.9 Depression F32.A Depression Type: unspecified
--- NOTE | 2021-11-22 17:17 | Billing Data ---
Date of Service November 22, 2021 Coding Level of Care Code 97708 Subseq Hosp Care Lvl 3
[2021-11-22] MEDS: MIRTAZAPINE TAB 15 MG TAB PO SCH (20:31)
--- NOTE | 2021-11-23 00:06 | Billing Data ---
Date of Service November 23, 2021 Coding Level of Care Code 43182 Initial Inpt Care Lvl 3
--- NOTE | 2021-11-23 06:55 | Hospitalist Progress Note ---
Date of Service November 23, 2021 Assessment & Plan (1) Foreign body ingestion: (2) Foreign body in urethra: (3) 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: (4) Schizophrenia: (5) Auditory hallucination: (6) Anxiety: (7) Depression: (8) Constipation: Plan: Stefan is a 21 year old male with a PMH of foreign body ingestion 1.5 years ago, suicidal ideation, schizophrenia, depression and anxiety who presents after ingestion of a plastic foreign body on a string with attempts to pull it up through his esophagus repeatedly with intent to rip his esophagus as well as insertion of a long tubular foreign body into his urethra. Foreign body ingestion: -CT C/A/P showing metallic foreign body ~1cm in stomach with second metallic foreign body in adjacent small bowel. -GI consulted - EGD w/ successful Foreign Body Removal. No significant injury noted from ingestion of the foreign body. -3rd foreign body moved from small intestine to large colon on KUB. -Repeat KUB today. -Daily KUB until passage of foreign material. Foreign body in urethra: -CT A/P showing elongated 5 cm foreign body within the penile/bulbous urethra which contains both metal and plastic components. -Urology consulted -Cystoscopy performed w/ successful removal. -Recommend to keep catheter in for 1 week, can be removed outpatient. -Creatinine 1.61 on arrival, down to 1.05 yesterday. -Urine clear but still with some residual CVA tenderness on left. -Monitor I&Os, urine output changes. 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/constipation: -Reported blood in stool 1.5 weeks prior to ingestion. -Patient hemodynamically stable, hemoglobin stable 11.6 yesterday. -Monitor BM for discoloration. Schizophrenia/Auditory hallucinations: -Hx of auditory hallucinations, previously on Zyprexa but stopped when transferred to skilled nursing. -Current medications of Paxil and Remeron. -Pyschiatry consulted -Recommended possibly restarting antipsychotic medication outpatient such as haloperidol. Depression/Anxiety: -Continue home Paxil, mirtazapine. FEN/GI: Normal diet Code Status: Full Code DVT prophylaxis: none, no anticoagulant due to possible GI bleeding, ambulatory Dispo: PCU Admission and Anticipated Discharge Date Admission Date: November 21, 2021 Supervising Physician Co-Signing Physician Notes I personally examined the patient and verified all tirado points of history and exam, discussed case, and agree with decision making with Dr Alva some pain when having BM otherwise doing better vitals noted nad heent nc at mmm breathing unlabored no accessory muscles good effort abd soft nd nt no guarding/rebound no masses/organomegaly foreign body ingestions - one removed, one to follow although fortunately appears small and fairly low risk for perforation. serial exams, serial KUB, time - appears moving in the right direction urethral foreign body - removed by urology, ruiz. tolerating reasonably well schizophrenia - likely re-trial of haldol by primary (skilled nursing) psych ARF on admission - now quickly resolved. sounds to have not been drinking much prior to admission - that hx + rapid resolution strongly favor prerenal cause. periodic BMP otherwise as above Subjective Spoke to patient at bedside, patient stated he's doing well this morning, had a bowel movement with a lot of stool earlier in the morning. He was unsure if anything came out at the time but said when he had the bowel movement he had some pain below the umbilicus. He has some left lower back pain that has been present since he claims he had to drink his own urine the day before coming in. Denies fevers, chills, shortness of breath, chest pain. Review of Systems Constitutional: as per Subjective / HPI Physical Exam Constitutional: WD/WN, vitals as above Respiratory: normal respiratory effort, lungs clear to auscultation Cardiovascular: RRR, no murmur, no edema Gastrointestinal (Abdomen): normal bowel sounds, soft, nontender, no hepatosplenomegaly Musculoskeletal: CVA tenderness on left. Psychiatric: A+Ox3, euthymic affect Genitourinary: Ruiz catheter in place w/ drainage of yellow clear urine. Results & Data Results & Data ([facility]) Vital Signs (Past 12 Hours) Vital Signs Temp Pulse Pulse Resp BP Pulse Ox 11/23/21 03:14 36.7 C 75 17 133/64 93 11/22/21 23:04 36.9 C 81 23 132/68 95 11/22/21 22:30 99 H 11/22/21 20:01 36.7 C 93 H 18 120/57 L 95 Resident Activity Tracking Resident Involvement: Resident Care Provided Care Provided: Adult Hospital Medicine (1) Depression Depression Type: unspecified Qualified Code(s): F32.A - Depression, unspecified (2) Foreign body in urethra Encounter type: initial encounter Qualified Code(s): T19.0XXA - Foreign body in urethra, initial encounter (3) Foreign body ingestion Encounter type: initial encounter Qualified Code(s): T18.9XXA - Foreign body of alimentary tract, part unspecified, initial encounter
[2021-11-23] MEDS: DOCUSATE SODIUM/SENNA 50/8.6MG TAB PO SCH (08:32)
[2021-11-23] MEDS: POLYETHYLENE (MIRALAX) 17 GM PACK PO SCH ×2 (08:32→20:33)
[2021-11-23] MEDS: PARoxetine HCL 20 MG TAB PO SCH (08:33)
--- NOTE | 2021-11-23 10:54 | XRay Report ---
KUB HISTORY: foreign body ingestion COMPARISON: 11/22/2021 KUB. FINDINGS: The bowel gas pattern is unremarkable. There are no dilated loops of small bowel to suggest an obstruction. No renal calculi. No ureteral calculi. No pneumoperitoneum or pneumatosis. A Hernandez catheter is in place. Redemonstration of the metallic foreign body within the right side the abdomen which likely resides within the ascending colon. There are suture material within the left upper quad rant. IMPRESSION: Small metallic foreign body again noted within the ascending colon which likely represents a pen tip. ACT 112: Negative or not required by law. Electronically signed by: Richard Aburto M.D. 11/23/2021 10:53 AM
--- NOTE | 2021-11-23 16:57 | Billing Data ---
Date of Service November 23, 2021 Coding Level of Care Code 61734 Subseq Hosp Care Lvl 3
[2021-11-23] MEDS: MIRTAZAPINE TAB 15 MG TAB PO SCH (20:18)
--- NOTE | 2021-11-24 06:42 | Hospitalist Progress Note ---
Date of Service November 24, 2021 Assessment & Plan (1) Foreign body ingestion: (2) Foreign body in urethra: (3) 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: (4) Schizophrenia: (5) Auditory hallucination: (6) Anxiety: (7) Depression: (8) Constipation: Plan: Stefan is a 21 year old male with a PMH of foreign body ingestion 1.5 years ago, suicidal ideation, schizophrenia, depression and anxiety who presents after ingestion of a plastic foreign body on a string with attempts to pull it up through his esophagus repeatedly with intent to rip his esophagus as well as insertion of a long tubular foreign body into his urethra. Foreign body ingestion: -CT C/A/P showing metallic foreign body ~1cm in stomach with second metallic foreign body in adjacent small bowel. -GI consulted - EGD w/ successful Foreign Body Removal. No significant injury noted from ingestion of the foreign body. -3rd foreign body moved from small intestine to large colon on KUB. -Repeat KUB today w/ movement of material but not significantly from yesterday. -Daily KUB until passage of foreign material. Foreign body in urethra: -CT A/P showing elongated 5 cm foreign body within the penile/bulbous urethra which contains both metal and plastic components. -Urology consulted -Cystoscopy performed w/ successful removal. -Recommend to keep catheter in for 1 week, can be removed outpatient. -Creatinine 1.61 on arrival, down to 1.05 yesterday. -Urine clear but still with some residual CVA tenderness on left. -Monitor I&Os, urine output changes. 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/constipation: -Reported blood in stool 1.5 weeks prior to ingestion. -Patient hemodynamically stable, hemoglobin stable 11.6 yesterday. -Monitor BM for discoloration. Schizophrenia/Auditory hallucinations: -Hx of auditory hallucinations, previously on Zyprexa but stopped when transferred to [facility]. -Current medications of Paxil and Remeron. -Pyschiatry consulted -Recommended possibly restarting antipsychotic medication outpatient such as haloperidol. Depression/Anxiety: -Continue home Paxil, mirtazapine. FEN/GI: Normal diet Code Status: Full Code DVT prophylaxis: none, no anticoagulant due to possible GI bleeding, ambulatory Dispo: PCU Admission and Anticipated Discharge Date Admission Date: November 21, 2021 Supervising Physician Co-Signing Physician Notes I personally examined the patient and verified all tirado points of history and exam, discussed case, and agree with decision making with Dr Alva generally feeling better. KUB reviewed. vitals noted nad heent nc at mmm breathing unlabored no accessory muscles good effort foreign body ingestions - one removed, one to follow although fortunately appears small and fairly low risk for perforation. serial exams, serial KUB, time - appears moving in the right direction, albeit slowly urethral foreign body - removed by urology, ruiz x1wk. tolerating reasonably well. re-educated on rationale for ruiz today. schizophrenia - likely re-trial of haldol by primary (senior living) psych ARF on admission - now quickly resolved. sounds to have not been drinking much prior to admission - that hx + rapid resolution strongly favor prerenal cause. periodic BMP otherwise as above Subjective Patient doing well today. Had bowel movement at around 7AM. No complaints of fevers, chills, chest pain, shortness of breath, abdominal pain. Review of Systems Constitutional: as per Subjective / HPI Physical Exam Constitutional: WD/WN, vitals as above Respiratory: normal respiratory effort, lungs clear to auscultation Cardiovascular: RRR, no murmur, no edema Gastrointestinal (Abdomen): normal bowel sounds, soft, nontender, no hepatosplenomegaly Psychiatric: A+Ox3, euthymic affect Results & Data Results & Data ([facility]) Vital Signs (Past 12 Hours) Vital Signs Temp Pulse Pulse Resp BP Pulse Ox 11/24/21 02:42 36.5 C 68 16 125/75 93 11/23/21 23:30 36.7 C 77 19 134/95 95 11/23/21 22:30 76 11/23/21 19:15 36.6 C 80 18 147/75 H 95 Resident Activity Tracking Resident Involvement: Resident Care Provided Care Provided: Adult Hospital Medicine (1) Depression Depression Type: unspecified Qualified Code(s): F32.A - Depression, unspec ified (2) Foreign body in urethra Encounter type: initial encounter Qualified Code(s): T19.0XXA - Foreign body in urethra, initial encounter (3) Foreign body ingestion Encounter type: initial encounter Qualified Code(s): T18.9XXA - Foreign body of alimentary tract, part unspecified, initial encounter
[2021-11-24] MEDS: POLYETHYLENE (MIRALAX) 17 GM PACK PO SCH ×2 (07:56→19:54)
[2021-11-24] MEDS: DOCUSATE SODIUM/SENNA 50/8.6MG TAB PO SCH (07:56)
[2021-11-24] MEDS: PARoxetine HCL 20 MG TAB PO SCH (07:56)
--- NOTE | 2021-11-24 08:58 | XRay Report ---
KUB CLINICAL HISTORY: Foreign body assessment. FINDINGS: An AP, portable, supine abdominal radiograph is compared to study dated 11/23/2021. There is a nonobstructed abdominal bowel gas pattern noting moderate colonic fecal retention. No evidence of intraperitoneal free air is seen on this supine image. A catheter projecting over the pelvis is uncha nged. An 11 mm radiodense foreign body is again seen projecting over the right upper quadrant. This i s similar in position to yesterday. The bony structures appear intact. IMPRESSION: A radiodense foreign body in the right upper quadrant has not significantly changed in po sition from yesterday. Electronically signed by: Henrique Slaughter M.D. 11/24/2021 8:56 AM
--- NOTE | 2021-11-24 17:02 | Billing Data ---
Date of Service November 24, 2021 Coding Level of Care Code 18133 Subseq Hosp Care Lvl 2
[2021-11-24] MEDS: MIRTAZAPINE TAB 15 MG TAB PO SCH (21:24)
--- NOTE | 2021-11-25 06:58 | Hospitalist Progress Note ---
Date of Service November 25, 2021 Assessment & Plan (1) Foreign body ingestion: (2) Foreign body in urethra: (3) 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: (4) Schizophrenia: (5) Auditory hallucination: (6) Anxiety: (7) Depression: (8) Constipation: Plan: Stefan is a 21 year old male with a PMH of foreign body ingestion 1.5 years ago, suicidal ideation, schizophrenia, depression and anxiety who presents after ingestion of a plastic foreign body on a string with attempts to pull it up through his esophagus repeatedly with intent to rip his esophagus as well as insertion of a long tubular foreign body into his urethra. Foreign body ingestion: -CT C/A/P showing metallic foreign body ~1cm in stomach with second metallic foreign body in adjacent small bowel. -GI consulted - EGD w/ successful Foreign Body Removal. No significant injury noted from ingestion of the foreign body. -3rd foreign body moved from small intestine to large colon on KUB. -Repeat KUB today w/ movement of material to splenic flexure. -Daily KUB until passage of foreign material. Foreign body in urethra: -CT A/P showing elongated 5 cm foreign body within the penile/bulbous urethra which contains both metal and plastic components. -Urology consulted -Cystoscopy performed w/ successful removal. -Recommend to keep catheter in for 1 week, can be removed outpatient. -Creatinine 1.61 on arrival, down to 1.05 11/22. -Urine clear but still with some residual CVA tenderness on left. -Monitor I&Os, urine output changes. 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/constipation: -Reported blood in stool 1.5 weeks prior to ingestion. -Patient hemodynamically stable, hemoglobin stable 11.6 yesterday. -Monitor BM for discoloration. Schizophrenia/Auditory hallucinations: -Hx of auditory hallucinations, previously on Zyprexa but stopped when [facility]. -Current medications of Paxil and Remeron. -Pyschiatry consulted -Recommended possibly restarting antipsychotic medication outpatient such as haloperidol. Depression/Anxiety: -Continue home Paxil, mirtazapine. FEN/GI: Normal diet Code Status: Full Code DVT prophylaxis: none, no anticoagulant due to possible GI bleeding, ambulatory Dispo: Med/Surg Admission and Anticipated Discharge Date Admission Date: November 21, 2021 Supervising Physician Co-Signing Physician Notes Resident Physician Supervision Note: I independently interviewed and examined the patient and verified the tirado histor y and physical, reviewed labs and image studies and agree with resident Dr. Alva findings and care plan. Subjective Patient stated he hasn't had a bowel movement today but had two bowel movements yesterday. He says he has some increased pain at the left side of the abdomen but no nausea, vomiting, fevers, chills. Patient complains about his ruiz being uncomfortable today as well. Review of Systems Constitutional: as per Subjective / HPI Physical Exam Constitutional: WD/WN, vitals as above Respiratory: normal respiratory effort, lungs clear to auscultation Cardiovascular: RRR, no murmur, no edema Gastrointestinal (Abdomen): Inspection/Auscultation: abdomen normal to i nspection and normal bowel sounds Moderate tenderness to palpation of left upper and lower abdomen w/o guarding. Psychiatric: A+Ox3, euthymic affect Genitourinary: Ruiz in place, penile meatus w/o discharge, urine yellow clear. Results & Data Results & Data ([facility]) Vital Signs (Past 12 Hours) Vital Signs Temp Pulse Resp BP Pulse Ox 11/24/21 22:09 36.8 C 86 18 133/68 100 11/24/21 19:50 83 137/86 Resident Activity Tracking Resident Involvement: Resident Care Provided Care Provided: Adult Hospital Medicine (1) Depression Depression Type: unspecified Qualified Code(s): F32.A - Depression, unspecified (2) Foreign body in urethra Encounter type: initial encounter Qualified Code(s): T19.0XXA - Foreign body in urethra, initial encounter (3) Foreign body ingestion Encounter type: initial encounter Qualified Code(s): T18.9XXA - Foreign body of alimentary tract, part unspecified, initial encounter
[2021-11-25] MEDS: DOCUSATE SODIUM/SENNA 50/8.6MG TAB PO SCH (07:53)
[2021-11-25] MEDS: PARoxetine HCL 20 MG TAB PO SCH (07:53)
[2021-11-25] MEDS: POLYETHYLENE (MIRALAX) 17 GM PACK PO SCH ×2 (07:53→20:43)
--- NOTE | 2021-11-25 09:35 | XRay Report ---
XR KUB/Abdomen 1 view CLINICAL HISTORY: Foreign body progression TECHNIQUE: 1 view of the abdomen was obtained. Comparison: Comparison is made to prior radiographs 11/24/2021 and abdomen radiographs 11/23/2021 FINDINGS: A metallic radiodensity now projects over the splenic flexure. The osseous structures are grossly unr emarkable. The bowel gas pattern is nonobstructive. A moderate amount of stool is noted within the la rge bowel. IMPRESSION: Metallic radiodensity now projects over the splenic flexure, representing progression through the col on. ACT 112: Negative or not required by law. Electronically signed by: Shlomo Rose M.D. 11/25/2021 9:33 AM
[2021-11-25] MEDS: ACETAMINOPHEN 500 MG TAB PO PRN (11:17)
[2021-11-25] MEDS: MIRTAZAPINE TAB 15 MG TAB PO SCH (20:43)
[2021-11-25] MEDS ORDERED: ONDANSETRON INJ 2 MG/ML 2 ML VIAL IV PRN (22:31)
[2021-11-25] MEDS ORDERED: HYDROmorphone INJ 0.5 MG/0.5 ML SYR IV STA (23:30)
[2021-11-26 00:14] LABS: Hematocrit (blood only) 41.3 % (42-52); Hemoglobin 13.3 g/dL (14.0-18.0)
[2021-11-26 00:45] LABS: BUN Creatinine Ratio 28.6 (10-20); Calcium 9.5 mg/dl (8.5-10.1); Creatinine Clr Calc Pharmacy 132.6 ml/min; Est GFR (African American) 139.1 ml/min; Magnesium 1.7 mg/dl (1.7-2.4); Potassium 3.8 mmol/L (3.5-5.1)
[2021-11-26] MEDS ORDERED: OPTIRAY 320 100ml IV ONE (00:54)
--- NOTE | 2021-11-26 00:56 | Communication Note ---
Date of Service: November 26, 2021 Earlier this evening the patient started to have bleeding from his urethra, around his ruiz catheter, without associated hematuria; the bleeding reportedly soaked several tissues before stopping. He also had acute-onset sharp colicky suprapubic pain that coincided with the onset of bleeding. Also reported some associated nausea which did improve with Zofran x1. On exam patient is shaking and in visible distress due to pain, and is holding his lower abdomen. Patient's abdomen is soft and non-distended but patient does have severe tenderness to palpation of suprapubic region, with guarding. No rebound tenderness. Patient's penis is painful to palpation; ruiz is intact without active bleeding. Ruiz bag with yellow urine - no gross hematuria. - ordered H/H which is stable (Hgb 13.3) - ordered BMP/Mg which was WNL - KUB without free air or sign of SBO - CT A/P with IV contrast showing mesenteric adenitis but without evidence for bowel inflammation/ischemia or other acute process Largely unremarkable labs and imaging is reassuring. Suspect that patient inadvertently pulled on ruiz which caused bleeding and associated suprapubic pain. - will give Dilaudid for pain and Zofran for nausea - follow closely for changes
[2021-11-26] MEDS ORDERED: HYDROmorphone INJ 0.5 MG/0.5 ML SYR IV STA ×2 (01:04→04:24)
[2021-11-26] MEDS ORDERED: ONDANSETRON INJ 2 MG/ML 2 ML VIAL IV STA (01:04)
[2021-11-26] MEDS ORDERED: diphenhydrAMINE 50 MG/ML VIAL IV STA (04:03)
[2021-11-26 07:56] LABS: Basophils # (auto) 0.02 K/uL (0-0.2); Basophils % (auto) 0.3 %; Eosinophils # (auto) 0.06 K/uL (0-0.5); Eosinophils % (auto) 0.9 %; Hematocrit (blood only) 43.7 % (42-52); Hemoglobin 14.2 g/dL (14.0-18.0); Immature Granulocytes # (auto) 0.01 K/uL (0.00-0.02); Immature Granulocytes % (auto) 0.2 %; Lymphocytes # (auto) 2.76 K/uL (1.2-3.4); Lymphocytes % (auto) 43.3 %; Mean Corpuscular Hemoglobin 24.1 pg (25-34); Mean Corpuscular Hgb Conc 32.5 g/dL (32-36); Mean Corpuscular Volume 74.1 fL (80-100); Mean Platelet Volume 10.9 fL (7.4-10.4); Monocytes # (auto) 0.62 K/uL (0.11-0.59); Monocytes % (auto) 9.7 %; Neutrophils % (auto) 45.6 %; Platelet Count 247 K/uL (130-400); RDW Coefficient of Variation 13.9 % (11.5-14.5); White Blood Count 6.37 K/uL (4.8-10.8)
[2021-11-26] MEDS: DOCUSATE SODIUM/SENNA 50/8.6MG TAB PO SCH (08:00)
[2021-11-26] MEDS: POLYETHYLENE (MIRALAX) 17 GM PACK PO SCH (08:00)
[2021-11-26] MEDS: PARoxetine HCL 20 MG TAB PO SCH (08:00)
--- NOTE | 2021-11-26 08:14 | XRay Report ---
KUB HISTORY: severe abdominal pain COMPARISON: KUB 11/25/2021. FINDINGS: The bowel gas pattern is unremarkable. There are no dilated loops of small bowel to suggest an obstruction. No renal calculi. No ureteral calculi. No pneumoperitoneum or pneumatosis. A Hernandez catheter is in place. There are 2 metallic foreign bodies within the left side the abdomen which diane ure 1.9 and 1.5 cm. These are new from the prior study. There are postoperative changes again noted w ithin the left upper quadrant. IMPRESSION: There are 2 metallic foreign bodies within the left side of the abdomen as described above. ACT 112: Negative or not required by law. Electronically signed by: Richard Aburto M.D. 11/26/2021 8:13 AM
--- NOTE | 2021-11-26 08:17 | Hospitalist Progress Note ---
Date of Service November 26, 2021 Assessment & Plan (1) Foreign body ingestion: (2) Foreign body in urethra: (3) 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: (4) Schizophrenia: (5) Auditory hallucination: (6) Anxiety: (7) Depression: (8) Constipation: Plan: Stefan is a 21 year old male with a PMH of foreign body ingestion 1.5 years ago, suicidal ideation, schizophrenia, depression and anxiety who presents after ingestion of a plastic foreign body on a string with attempts to pull it up through his esophagus repeatedly with intent to rip his esophagus as well as insertion of a long tubular foreign body into his urethra. Foreign body ingestion: -CT C/A/P showing metallic foreign body ~1cm in stomach with second metallic foreign body in adjacent small bowel. -GI consulted - EGD w/ successful Foreign Body Removal. No significant injury noted from ingestion of the foreign body. -3rd foreign body moved from small intestine to large colon on KUB. -Repeat KUB today w/ movement of material to splenic flexure. -Daily KUB until passage of foreign material. Foreign body in urethra: -CT A/P showing elongated 5 cm foreign body within the penile/bulbous urethra which contains both metal and plastic components. -Urology consulted -Cystoscopy performed w/ successful removal. -Recommend to keep catheter in for 1 week, can be removed outpatient. -Creatinine 1.61 on arrival, down to 1.05 11/22. -Urine clear but still with some residual CVA tenderness on left. -Monitor I&Os, urine output changes. 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/constipation: -Reported blood in stool 1.5 weeks prior to ingestion. -Patient hemodynamically stable, hemoglobin stable 11.6 yesterday. -Monitor BM for discoloration. Schizophrenia/Auditory hallucinations: -Hx of auditory hallucinations, previously on Zyprexa but stopped when transferred to [facility]. -Current medications of Paxil and Remeron. -Pyschiatry consulted -Recommended possibly restarting antipsychotic medication outpatient such as haloperidol. Depression/Anxiety: -Continue home Paxil, mirtazapine. FEN/GI: Normal diet Code Status: Full Code DVT prophylaxis: none, no anticoagulant due to possible GI bleeding, ambulatory Dispo: Med/Surg Admission and Anticipated Discharge Date Admission Date: November 21, 2021 Results & Data Results & Data ([facility]) Vital Signs (Past 12 Hours) Vital Signs Temp Pulse Resp BP BP Pulse Ox 11/26/21 07:21 36.6 C 74 16 105/66 100 11/26/21 01:28 36.5 C 83 18 113/73 98 11/25/21 22:05 36.8 C 99 H 20 147/77 H 99 (1) Foreign body ingestion Encounter type: initial encounter Qualified Code(s): T18.9XXA - Foreign body of alimentary tract, part unspecified, initial encounter (2) Foreign body in urethra Encounter type: initial encounter Qualified Code(s): T19.0XXA - Foreign body in urethra, initial encounter (3) Depression Depression Type: unspecified Qualified Code(s): F32.A - Depression, unspecified
--- NOTE | 2021-11-26 08:19 | CT Scan Report ---
ABDOMEN AND PELVIS CT WITH IV CONTRAST CT DOSE: 316.41 mGy.cm HISTORY: severe lower abdominal pain TECHNIQUE: Multiaxial CT images of the abdomen and pelvis were performed following the use of intrave nous contrast. A dose lowering technique was utilized adhering to the principles of ALARA. COMPARISON STUDY: Abdomen and pelvis CT 11/21/2021. FINDINGS: The lung bases are clear. No pneumoperitoneum. No pneumatosis. No fractures within the visu alized osseous structures. The liver, gallbladder, pancreas, spleen, and adrenal glands unremarkable. There is contrast within the bilateral renal collecting systems. No hydronephrosis. No retroperitone al lymphadenopathy. There is a Hernandez catheter within the bladder. No pelvic free fluid. No bowel wall thickening or obstruction. Suture material again noted within the stomach. There are 2 adjacent curv ilinear metallic foreign bodies identified within the stomach. IMPRESSION: There are 2 curvilinear metallic foreign bodies identified within the stomach. ACT 112: Negative or not required by law. Electronically signed by: Richard Aburto M.D. 11/26/2021 8:16 AM
[2021-11-26 08:26] LABS: Ovalocytes 1+; Poikilocytosis Present
--- NOTE | 2021-11-26 09:29 | XRay Report ---
KUB HISTORY: Foreign object progression COMPARISON: KUB 11/25/2021. FINDINGS: There are 3 curvilinear metallic foreign bodies within the left side of the abdomen with th e largest measuring 3.4 cm. These could reside within the distal stomach or proximal small bowel. The re is a Hernandez catheter noted. No renal calculi. No ureteral calculi. No pneumoperitoneum or pneumato sis. IMPRESSION: There are 3 curvilinear metallic foreign bodies within the left side of the abdomen with the largest measuring 3.4 cm. These could reside within the distal stomach or proximal small bowel. ACT 112: Negative or not required by law. Electronically signed by: Richard Aburto M.D. 11/26/2021 9:28 AM
[2021-11-26 09:34] LABS: BUN Creatinine Ratio 17.9 (10-20); Calcium 9.6 mg/dl (8.5-10.1); Creatinine Clr Calc Pharmacy 113.8 ml/min; Est GFR (African American) 115.7 ml/min; Est GFR (Non-African American) 99.8 ml/min; Potassium 3.8 mmol/L (3.5-5.1)
[2021-11-26] MEDS: ACETAMINOPHEN 500 MG TAB PO PRN (10:06)
--- NOTE | 2021-11-26 12:40 | Discharge Summary ---
Date of Service November 26, 2021 Admission HPI Per Admitting Provider Stefan Simon is a 21yo male with PMHx significant for depression and self- injurious behavior presented from [facility] on 11/21 after intentionally ingesting a sharp plastic object as well as intentionally shoving a plastic object up his urethra earlier in the day. Patient has done this several times before since [facility] - reports that he gets depressed and wants to hurt himself but does not have a plan to kill himself. No active SI/HI. Since the ingestion/insertion, patient denies nausea/vomiting/hematemesis although he does have slight burning substernal pain. Does report bleeding from urethra after insertion but that this subsided after ~1 hour and has not recurred. Denies pain in penis/groin/scrotum, although has had trouble urinating since the incident. Of note patient does report dark blood per rectum with bowel movements over the last several weeks but denies diarrhea or pain with BMs. Denies any ingestion since the last time he was in our ED ~1 year ago for intentional ingestion. In the ED the patient was borderline hypertensive and tachycardic. Labs significant for Hgb 12.5 (no previous), BUN 31/Cr 1.61 (no previous). Chest CT showed 9 mm metallic density within the proximal body of the stomach suggestive of an ingested foreign body. CT A/P showed 1 cm metallic foreign body within the stomach, small metallic density anterior to the right kidney which could represent an additional foreign body within the adjacent small bowel, and elongated 5 cm foreign body within the penile/bulbous urethra which contains both metal and plastic components. Patient was given 2L NSS boluses in ED. Admission Exam Per Admitting Provider General: A&Ox3. NAD. Cooperative. HEENT: Atraumatic, normocephalic. No mouth/tongue lacerations visualized. Pulm: CTAB A&P. -wheezes, -rales, -rhonchi. Symmetrical chest rise. No increase work of breathing. No respiratory distress. Cardiac: RRR, -mrg. Radial pulses intact and symmetrical. Abdominal: soft, non-tender, non-distended, BS x 4 : penis without overt deformity and non-tender to palpation, without visible blood or drainage from urethra. No visible laceration to urethra or penis. Skin: warm, dry, no rash Principal Diagnosis Foreign body ingestion and sounding. Discharge Exam Constitutional WD/WN, vitals as above Respiratory normal respiratory effort, lungs clear to auscultation Cardiovascular RRR, no murmur, no edema Gastrointestinal (Abdomen) Inspection/Auscultation: abdomen normal to inspection and normal bowel sounds Psychiatric A+Ox3, euthymic affect Discharge Data Allergies Allergy/AdvReac Type Severity Reaction Status Date / Time No Known Allergies Allergy Unverified 11/21/21 20:20 Consultations 11/21/21 21:52 Consult Gastroenterology Stat Consult Urology Stat 11/21/21 22:09 ED Decision to Admit Stat 11/22/21 01:11 Consult Psychiatry Routine Procedures Performed Operation Date: 11/21/21 22:00 Actual Procedures p Esophagogastroduodenoscopy, Foreign Body Removal(Not Applicable) - Luc Villalobos MD s Cystoscopy, Foreign Body Removal(Not Applicable) - Nakul Leslie MD Ordered Studies 11/21/21 19:26 CT abd pelvis wo con Stat IMPRESSION: 1. There is a 1 cm metallic foreign body within the stomach. 2. There is a small metallic density anterior to the right kidney which could represent an additional foreign body within the adjacent small bowel. 3. There is an elongated 5 cm foreign body within the penile/bulbous urethra which contains both metal and plastic components. CT chest diagnostic wo con Stat IMPRESSION: 1. 9 mm metallic density within the proximal body of the stomach suggestive of an ingested foreign body. 2. No radiopaque foreign bodies within the chest. 3. No acute process within the chest. 11/25/21 23:29 CT abd pelvis IV con only Urgent IMPRESSION: There are 2 curvilinear metallic foreign bodies identified within the stomach. Hospital Course (1) Foreign body ingestion: (2) Foreign body in urethra: (3) 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: (4) Schizophrenia: (5) Auditory hallucination: (6) Anxiety: (7) Depression: (8) Constipation: Stefan is a 21 year old male with a PMH of foreign body ingestion 1.5 years ago, suicidal ideation, schizophrenia, depression and anxiety who presents after ingestion of a plastic foreign body on a string with attempts to pull it up through his esophagus repeatedly with intent to rip his esophagus as well as insertion of a long tubular foreign body into his urethra. Foreign body ingestion: -CT C/A/P showing metallic foreign body ~1cm in stomach with second metallic foreign body in adjacent small bowel. -GI consulted - EGD w/ successful Foreign Body Removal. No significant injury noted from ingestion of the foreign body. -3rd foreign body moved from small intestine to large colon on KUB. -11/25 CT A/P: 2 curvilinear metallic foreign bodies identified within the stomach -Patient admitted to putting a few arturo/paper clip up nose from before admission which he sneezed and accidentally swallowed on 11/25. -Continue laxative medication for bowel movements to pass objects. -Serial/Daily KUB until passage of foreign material. Foreign body in urethra: -CT A/P showing elongated 5 cm foreign body within the penile/bulbous urethra which contains both metal and plastic components. -Urology consulted -Cystoscopy performed w/ successful removal of 5cm plastic object -Okay to remove Hernandez catheter after 5-7 days. -Creatinine 1.61 on arrival, down to 1.05 11/22. -Hernandez catheter removed 11/26 w/o issue. Schizophrenia/Auditory hallucinations: -Hx of auditory hallucinations, previously on Zyprexa but stopped when transferred to [facility]. -Current medications of Paxil and Remeron. -Psychiatry consulted -Recommended possibly restarting antipsychotic medication outpatient such as haloperidol. Total Time Total Time Spent Total Time Spent (In Minutes): Please see attending attestation. Discharge Plan Discharge Items [facility] Disposition[facility] Reason For Visit: INTENTIONAL INGESTION OF FOREIGN BODY Discharge Diagnosis: Foreign body ingestion and sounding Activity: Per Instructions section Non-emergency contact: Primary Care Provider and Psychiatrist Call non-emergency contact if: your symptoms worsen, your pain is worsening, your temperature is above 101 and your wound has increased drainage Follow-up/Referrals: Kalyn ROBERSON [Primary Care Provider] - Diet: Regular Addtl Attending Provider Instructions: Stefan is a 21 year old male with a PMH of foreign body ingestion 1.5 years ago, suicidal ideation, schizophrenia, depression and anxiety who presents after ingestion of a plastic foreign body on a string with attempts to pull it up through his esophagus repeatedly with intent to rip his esophagus as well as insertion of a long tubular foreign body into his urethra. Foreign body ingestion: -CT C/A/P showing metallic foreign body ~1cm in stomach with second metallic foreign body in adjacent small bowel. -GI consulted - EGD w/ successful Foreign Body Removal. No significant injury noted from ingestion of the foreign body. -3rd foreign body moved from small intestine to large colon on KUB. -11/25 CT A/P: 2 curvilinear metallic foreign bodies identified within the stomach -Patient admitted to putting a few arturo/paper clip up nose from before admission which he sneezed and accidentally swallowed on 11/25. -Continue laxative medication for bowel movements to pass objects. -Serial/Daily KUB until passage of foreign material. Foreign body in urethra: -CT A/P showing elongated 5 cm foreign body within the penile/bulbous urethra which contains both metal and plastic components. -Urology consulted -Cystoscopy performed w/ successful removal of 5cm plastic object -Okay to remove Hernandez catheter after 5-7 days. -Creatinine 1.61 on arrival, down to 1.05 11/22. -Hernandez catheter removed 11/26 w/o issue. Schizophrenia/Auditory hallucinations: -Hx of auditory hallucinations, previously on Zyprexa but stopped when transferred to [facility]. -Current medications of Paxil and Remeron. -Psychiatry consulted -Recommended possibly restarting antipsychotic medication outpatient such as haloperidol. Pending Studies at Discharge: No Stand-Alone Forms: My [facility] Skilled Items Patient informed of condition?: Yes Discharge Level of Care: Other Communicable Disease: No Discharge Prognosis: Stable Lines: None Urinary Catheter: No Medications and DC Order Prescriptions: Continued ibuprofen 600 mg Tablet 600 mg PO TID PRN (Reason: Pain) RF: 0 mirtazapine 30 mg Tablet 30 mg PO HS RF: 0 paroxetine HCl 30 mg Tablet 30 mg PO HS RF: 0 Discharge Orders: Discharge Order (Routine); Ordered 11/26/21 Ordered By: Hubert Alva Admission Data Admit Date/Time: 11/21/21 21:52 Attending Provider: Nelly Bartlett Admit Provider: Nakul Plunkett Primary Care Provider: Kalyn ROBERSON Other Providers: Luc Villalobos ; Nakul Leslie ; Kevin Dumont ; Dotty Olivarez ; Amy Zamarripa ; Laurel Ray ; Tigre Das Other Interventions: Discharge Summary Assessment (RN) Last Done: 11/26/21 13:08 Supervising Physician Co-Signing Physician Notes Resident Physician Supervision Note: I independently interviewed and examined the patient and verified the tirado history and physical, reviewed labs and image studies and agree with resident Dr. Alva findings and care plan. Resident Activity Tracking Resident Involvement: Resident Care Provided Care Provided: Adult Hospital Medicine
== END 2021-11-26 16:01 | DRG 699 ==
LOC: ED 18:52 → ASU 22:10 → 2E 22:11 → SUATTDRO 22:11 → 3E 11-24 15:39

== ENCOUNTER 2021-11-27 14:09 | Inpatient (IN) ==
--- NOTE | 2021-11-27 14:23 | Emergency Department Note ---
Impression & Plan Foreign body ingestion, Foreign body in urethra, Depression ED Provider Note NAME: AL [id number] KRYSTLE AGE: 21 SEX: M : 2000 ARRIVES VIA: Walk-In INFORMANT: Patient, ED PROVIDER(S): Lex Mehta MD Chief Complaint: Ingested foreign body, penile foreign body HPI: Patient presents due to concern for ingested foreign body. The patient has been incarcerated at [facility] for approximately 9 months. I had seen the patient most recently for similar issues. The patient states that he broke depression half and had wrapped it metal and had swallowed it with strings attached. The patient does currently retain the string in his mouth. The patient denies any fevers chills but does complain of some burning chest discomfort. Patient denies any nausea or vomiting. The patient also placed a piece of plastic with a metallic wrapper up his urethra as he did during his most recent encounter. Patient feels as though he might be able to urinate this out. Patient does admit to some mild discomfort with swallowing. ROS: See HPI for pertinent positives and negatives. A total of 10 systems were reviewed and otherwise negative. Past medical history: See below Surgical history: See below Social history: See below Physical Exam: GENERAL: In orange jumpsuit, spitting mask in place, arms and legs in shackles. EYE EXAM: Normal conjunctiva. PERRL, no anisocoria and EOM's grossly intact w/o pain. OROPHARYNX: Moist mucus membranes. Grossly normal dentition. No exudate, posterior pharynx is clear, no tonsillar/uvular deviation or swelling. No cervical adenopathy, no submental, submandibular, or sublingual swelling. String-like material located in the left side of the mouth with string hanging out of the mouth. No obvious foreign body in the posterior pharynx. Handling secretions. NECK: Supple, no nuchal rigidity, no adenopathy, non-tender. No signs of meningismus. FROM of the neck with good chin to chest and neck extension. No stridor. LUNGS: Clear to auscultation. Normal chest wall mechanics. HEART: NSR, no MRG. ABDOMEN: Abdomen soft, non-tender, shock belt in place, normo-active bowel sounds, no masses, no rebound or guarding. BACK: No CVA TTP. SKIN: No rashes and no bruising. : No obvious foreign body seen at the urethral meatus. UPPER EXTREMITIES: Upper extremities are grossly normal. LOWER EXTREMITIES: Grossly normal, no edema. NEURO EXAM: A&O x3, cranial nerves II-XII grossly intact, normal speech, moves all 4 extremities on command w/o issue. Good finger to nose, no drift, no sensory deficits. Differential diagnoses: Foreign body, obstruction, impaction, esophageal tear, GI perforation, urethral obstruction among others were considered Course: Patient was seen and evaluated the bedside. Full history physical exam was performed. Imaging Studies: See Below Cardiac monitoring: An order was placed for continuous cardiac monitoring. The monitor shows a rate of 92 with sinus rhythm. MDM: Patient was seen due to concern for foreign body ingestion as well as placing foreign body in the urethra. Blood work is obtained along with Noncon imaging of the CT of the chest abdomen pelvis. Patient has normal white count with virtually normal hemoglobin at 13.8. Platelet count is unremarkable. Kidney function is unremarkable with negative COVID. CT of the chest abdomen pelvis does show concern for multiple foreign bodies shown with 1 in the esophagus stomach as well as small bowel. Penile foreign body also noted. I did speak with the on-call urologist Dr. Leslie who did evaluate the patient. I did speak the on-call hospitalist Dr. Bernarda parish for admission and did speak with Dr. Jeff with gastroenterology. Past Med/Surg History Medical History Depression H/O swallowed foreign body Surgical History H/O esophagogastroduodenoscopy Social History Smoking Status: Former smoker Tobacco Type: Cigarettes Second Hand Exposure: Yes; Hx Alcohol Use: No Hx Substance Use: No Preferred Language: Pashto Communication Ability: Effective Associate Account Manager Required: No Beliefs That Will Affect Care: None Current Living Situation: Other Current Living Situation Comment: Incarcerated at [facility] Feels Safe at Home: Yes Assistive Devices: None Allergies Allergies Allergy/AdvReac Type Severity Reaction Status Date / Time No Known Allergies Allergy Unverified 11/27/21 16:05 Home Meds Home Medications Medication Instructions Recorded Confirmed paroxetine HCl 30 mg tablet 30 mg PO HS 12/02/20 11/27/21 mirtazapine 30 mg tablet 30 mg PO HS 11/21/21 11/27/21 Results & Data (ED) Vital Signs Vital Signs - 24 hr 11/27/21 14:16 11/27/21 14:48 11/27/21 16:10 Temperature 36.8 C Temperature Source Temporal Artery Scan Pulse Rate 94 H 64 Pulse Rate [Left Finger] Pulse Rhythm [Left Finger] Respiratory Rate 20 18 Respiratory Effort / Characteristics Non-Labored Spontaneous Non-Labored Respiratory Depth Normal Normal Respiratory Pattern Regular Blood Pressure 118/77 Blood Pressure [Right Arm] Blood Pressure Mean 90 Blood Pressure Mean [Right Arm] Pulse Oximetry 96 98 97 Oxygen Delivery Method Room Air Room Air Room Air Sepsis Recent Fever Within 48 Hours No Sepsis New/Unexplained Change in Mental Status No Sepsis Action Taken by Nursing No Action Required 11/27/21 17:10 11/27/21 17:56 Temperature Temperature Source Pulse Rate Pulse Rate [Left Finger] 96 H 83 Pulse Rhythm [Left Finger] Regular Respiratory Rate 18 20 Respiratory Effort / Characteristics Non-Labored Respiratory Depth Normal Respiratory Pattern Blood Pressure Blood Pressure [Right Arm] 142/92 H 108/83 Blood Pressure Mean Blood Pressure Mean [Right Arm] 108 91 Pulse Oximetry 99 97 Oxygen Delivery Method Room Air Room Air Sepsis Recent Fever Within 48 Hours Sepsis New/Unexplained Change in Mental Status Sepsis Action Taken by Prison Medications Current Medication List: was personally reviewed by me Laboratory Data Attestation: I reviewed the patient's lab results. Result diagrams: 11/27/21 15:00 11/27/21 15:00 Lab Results 11/27/21 11/27/21 11/27/21 Range/Units 15:00 15:00 Unknown WBC 6.97 (4.8-10.8) K/uL RBC 5.67 (4.7-6.1) M/uL Hgb 13.8 L (14.0-18.0) g/dL Hct 42.0 (42-52) % MCV 74.1 L (80-100) fL MCH 24.3 L (25-34) pg MCHC 32.9 (32-36) g/dL RDW Std Deviation 37.0 (36.4-46.3) fL RDW Coeff of Bassem 13.8 (11.5-14.5) % Plt Count 264 (130-400) K/uL MPV 10.7 H (7.4-10.4) fL Immature Gran % (Auto) 0.1 % Neut % (Auto) 68.6 % Lymph % (Auto) 24.0 % Merrick % (Auto) 6.6 % Eos % (Auto) 0.6 % Baso % (Auto) 0.1 % Neut # (Auto) 4.78 (1.4-6.5) K/uL Lymph # (Auto) 1.67 (1.2-3.4) K/uL Merrick # (Auto) 0.46 (0.11-0.59) K/uL Eos # (Auto) 0.04 (0-0.5) K/uL Baso # (Auto) 0.01 (0-0.2) K/uL Immature Gran # (Auto) 0.01 (0.00-0.02) K/uL Ovalocytes 1+ Sodium 136 (136-145) mmol/L Potassium 4.0 (3.5-5.1) mmol/L Chloride 99 (98-107) mmol/L Carbon Dioxide 30 (21-32) mmol/L Anion Gap 7 (3-11) BUN 22 (6-23) mg/dl Creatinine 1.15 (0.6-1.4) mg/dl Est Cr Clr Drug Dosing 108.2 ml/min Est GFR ( Amer) 104.8 ml/min Est GFR (Non-Af Amer) 90.5 ml/min BUN/Creatinine Ratio 19.1 (10-20) Glucose 92 (70-99(Fasting)) mg/dl Calcium 10.0 (8.5-10.1) mg/dl Total Bilirubin 0.4 (0.2-1.0) mg/dl AST 25 (13-39) U/L ALT 35 (7-52) U/L Alkaline Phosphatase 75 (34-104) U/L Total Protein 8.4 H (6.0-8.3) gm/dl Albumin 4.8 (3.4-5.0) gm/dl Globulin 3.6 (2.5-4.0) gm/dl Albumin/Globulin Ratio 1.3 (0.9-2) SARS-CoV-2, RNA, NAAT NEGATIVE (NEGATIVE) Administered Medications Discontinued Medications Sodium Chloride (Nss 1000ml) 500 mls @ 999 mls/hr IV .Q31M ONE Stop: 11/27/21 18:07 Last Admin: 11/27/21 17:50 Dose: 999 mls/hr Documented by: [id number] Morphine Sulfate (Morphine Sulfate 4 Mg/Ml 1 Ml Carp\Vial) 4 mg IV NOW STA Stop: 11/27/21 17:38 Last Admin: 11/27/21 17:56 Dose: 4 mg Documented by: [id number] Imaging Data Radiologist's Impression: Abdomen/Pelvis CT 11/27/21 14:48 CT SCAN OF THE ABDOMEN AND PELVIS WITHOUT IV CONTRAST CLINICAL HISTORY: Ingested and penile foreign bodies. COMPARISON STUDY: Abdominal CT dated 11/26/2021. TECHNIQUE: CT scan of the abdomen and pelvis is performed from the lung bases to the proximal femora. Images are reviewed in the axial, sagittal, and coronal planes. IV contrast was not administered for this examination. A dose lowering technique was utilized adhering to the principles of ALARA. There is streak artifact from an electronic devices overlying the patient's back. CT DOSE: 487.31 mGy.cm FINDINGS: Lung bases: The heart is normal in size and without pericardial effusion. The lung bases are clear. Liver: The unenhanced liver is normal in size, contour, and attenuation. There is no intrahepatic biliary ductal dilatation. Gallbladder: Unremarkable. Spleen: Normal in size and attenuation. Pancreas: Unremarkable. Adrenal glands: Unremarkable. Kidneys: The unenhanced kidneys are normal in size and without hydronephrosis. There are no renal calculi identified. There is no evidence of contour deforming renal mass lesion. Abdominal vasculature: The abdominal aorta is normal in course and caliber. Stomach and bowel: Metallic foreign bodies are present within the gastric fundus on images #64 and #72. Metallic and low-density foreign body/bodies are present within the distal stomach/proximal duodenum on images #112 and #140. A metallic foreign body in the left upper quadrant on image #153 is likely within small bowel. Metallic foreign bodies are present within the ascending colon on image #222, the distal transverse colon on image #126, and within the sigmoid colon on image #333. There is no bowel obstruction. The appendix is not clearly visualized. Peritoneum: There is no intraperitoneal free air or abdominal ascites. Lymphadenopathy: None. Pelvic viscera: The bladder, prostate, and seminal vesicles are normal as visualized. There is an approximately 5.5 cm linear foreign body present within the penile urethra on axial image #437. This is located approximately 8 cm from the tip of the penis and extends into the perineum. Skeletal structures: No lytic or blastic lesions are seen. IMPRESSION: 1. There are numerous foreign bodies scattered throughout the stomach, duodenum, small bowel, and colon as detailed above. 2. A linear foreign body is present within the penile urethra as above. 3. No bowel obstruction. 4. No intraperitoneal free air is identified. ACT 112: Negative or not required by law. Electronically signed by: Henrique Slaughter M.D. 11/27/2021 4:[address] 11/27/21 14:48 CT OF THE CHEST WITHOUT IV CONTRAST CLINICAL HISTORY: FB, ingested toothbrushes wrapped metal penis FB COMPARISON STUDY: Chest CT November 21, 2021. TECHNIQUE: Axial images of the chest were obtained without IV contrast. Images were reviewed in the axial, sagittal, and coronal planes. IV contrast was not administered for this examination. Automated exposure control was utilized for the study. A dose lowering technique was utilized adhering to the principles of ALARA. FINDINGS: No enlarged axillary, mediastinal or hilar lymph nodes are present. The size of the heart is normal. There is no pericardial effusion. Note is made of a 3 cm linear metallic density within the mid esophagus. There is adjacent hypodense material. This represents an ingested foreign body. No additional ingested foreign bodies within the chest are noted. Metallic densities within the stomach and duodenum suggestive ingested foreign body, better depicted on the CT of the abdomen and pelvis which will be reported separately. There is no consolidation to suggest pneumonia. No pneumomediastinum is present. There is no pneumothorax or pleural effusion. IMPRESSION: 1. 3 cm linear metallic density within the mid esophagus with adjacent hypodense material. This represents an ingested foreign body. 2. Additional suspected ingested foreign bodies within the stomach and duodenum, better depicted on the CT of the abdomen and pelvis. Please see that report for further description. ACT 112: Negative or not required by law. Electronically signed by: Layton Liu M.D. 11/27/2021 4:03 PM Discharge Plan Visit Data Chief Complaint: Foreign Body Stated Complaint: INGESTION OF METAL OBJECT ED Provider: Lex Mehta Discharge Problem: Foreign body ingestion, Foreign body in urethra, Depression Forms Stand Alone Forms: Amy [facility] Prescriptions Prescriptions: No Action mirtazapine 30 mg Tablet 30 mg PO HS RF: 0 paroxetine HCl 30 mg Tablet 30 mg PO HS RF: 0 Referrals Referrals: Kalyn ROBERSON [Primary Care Provider] - Discharge Problem: Foreign body ingestion Qualifiers: Encounter type: initial encounter Qualified Code(s): T18.9XXA - Foreign body of alimentary tract, part unspecified, initial encounter Foreign body in urethra Qualifiers: Encounter type: initial encounter Qualified Code(s): T19.0XXA - Foreign body in urethra, initial encounter Depression Qualifiers: Depression Type: unspecified Qualified Code(s): F32.A - Depression, unspecified
[2021-11-27 15:20] LABS: Basophils # (auto) 0.01 K/uL (0-0.2); Basophils % (auto) 0.1 %; Eosinophils # (auto) 0.04 K/uL (0-0.5); Eosinophils % (auto) 0.6 %; Hemoglobin 13.8 g/dL (14.0-18.0); Immature Granulocytes # (auto) 0.01 K/uL (0.00-0.02); Immature Granulocytes % (auto) 0.1 %; Lymphocytes # (auto) 1.67 K/uL (1.2-3.4); Mean Corpuscular Hemoglobin 24.3 pg (25-34); Mean Corpuscular Hgb Conc 32.9 g/dL (32-36); Mean Corpuscular Volume 74.1 fL (80-100); Mean Platelet Volume 10.7 fL (7.4-10.4); Monocytes # (auto) 0.46 K/uL (0.11-0.59); Monocytes % (auto) 6.6 %; Neutrophils # (auto) 4.78 K/uL (1.4-6.5); Neutrophils % (auto) 68.6 %; Platelet Count 264 K/uL (130-400); RDW Coefficient of Variation 13.8 % (11.5-14.5); Red Blood Count 5.67 M/uL (4.7-6.1); White Blood Count 6.97 K/uL (4.8-10.8)
[2021-11-27 15:37] LABS: Albumin Globulin Ratio 1.3 (0.9-2); Albumin Level 4.8 gm/dl (3.4-5.0); BUN Creatinine Ratio 19.1 (10-20); Bilirubin,Total 0.4 mg/dl (0.2-1.0); Creatinine Clr Calc Pharmacy 108.2 ml/min; Est GFR (African American) 104.8 ml/min; Est GFR (Non-African American) 90.5 ml/min; Globulin 3.6 gm/dl (2.5-4.0); Total Protein 8.4 gm/dl (6.0-8.3)
[2021-11-27 15:53] LABS: Ovalocytes 1+
--- NOTE | 2021-11-27 16:05 | CT Scan Report ---
CT OF THE CHEST WITHOUT IV CONTRAST CLINICAL HISTORY: FB, ingested toothbrushes wrapped metal penis FB COMPARISON STUDY: Chest CT November 21, 2021. TECHNIQUE: Axial images of the chest were obtained without IV contrast. Images were reviewed in the axial, sagittal, and coronal planes. IV contrast was not administered for this examination. Automat ed exposure control was utilized for the study. A dose lowering technique was utilized adhering to [facility] principles of ALARA. FINDINGS: No enlarged axillary, mediastinal or hilar lymph nodes are present. The size of the heart is normal. There is no pericardial effusion. Note is made of a 3 cm linear metallic density within th e mid esophagus. There is adjacent hypodense material. This represents an ingested foreign body. No a dditional ingested foreign bodies within the chest are noted. Metallic densities within the stomach a nd duodenum suggestive ingested foreign body, better depicted on the CT of the abdomen and pelvis whi ch will be reported separately. There is no consolidation to suggest pneumonia. No pneumomediastinum is present. There is no pneumothorax or pleural effusion. IMPRESSION: 1. 3 cm linear metallic density within the mid esophagus with adjacent hypodense material. This repre sents an ingested foreign body. 2. Additional suspected ingested foreign bodies within the stomach and duodenum, better depicted on [facility] CT of the abdomen and pelvis. Please see that report for further description. ACT 112: Negative or not required by law. Electronically signed by: Layton Liu M.D. 11/27/2021 4:03 PM
--- NOTE | 2021-11-27 16:06 | CT Scan Report ---
CT SCAN OF THE ABDOMEN AND PELVIS WITHOUT IV CONTRAST CLINICAL HISTORY: Ingested and penile foreign bodies. COMPARISON STUDY: Abdominal CT dated 11/26/2021. TECHNIQUE: CT scan of the abdomen and pelvis is performed from the lung bases to the proximal femora. Images are reviewed in the axial, sagittal, and coronal planes. IV contrast was not administered for this examination. A dose lowering technique was utilized adhering to the principles of ALARA. There is streak artifact from an electronic devices overlying the patient's back. CT DOSE: 487.31 mGy.cm FINDINGS: Lung bases: The heart is normal in size and without pericardial effusion. The lung bases are clear. Liver: The unenhanced liver is normal in size, contour, and attenuation. There is no intrahepatic kym iary ductal dilatation. Gallbladder: Unremarkable. Spleen: Normal in size and attenuation. Pancreas: Unremarkable. Adrenal glands: Unremarkable. Kidneys: The unenhanced kidneys are normal in size and without hydronephrosis. There are no renal saleem culi identified. There is no evidence of contour deforming renal mass lesion. Abdominal vasculature: The abdominal aorta is normal in course and caliber. Stomach and bowel: Metallic foreign bodies are present within the gastric fundus on images #64 and #7 2. Metallic and low-density foreign body/bodies are present within the distal stomach/proximal duoden um on images #112 and #140. A metallic foreign body in the left upper quadrant on image #153 is likel y within small bowel. Metallic foreign bodies are present within the ascending colon on image #222, t he distal transverse colon on image #126, and within the sigmoid colon on image #333. There is no bow el obstruction. The appendix is not clearly visualized. Peritoneum: There is no intraperitoneal free air or abdominal ascites. Lymphadenopathy: None. Pelvic viscera: The bladder, prostate, and seminal vesicles are normal as visualized. There is an savannah roximately 5.5 cm linear foreign body present within the penile urethra on axial image #437. This is located approximately 8 cm from the tip of the penis and extends into the perineum. Skeletal structures: No lytic or blastic lesions are seen. IMPRESSION: 1. There are numerous foreign bodies scattered throughout the stomach, duodenum, small bowel, and col on as detailed above. 2. A linear foreign body is present within the penile urethra as above. 3. No bowel obstruction. 4. No intraperitoneal free air is identified. ACT 112: Negative or not required by law. Electronically signed by: Henrique Slaughter M.D. 11/27/2021 4:04 PM
--- NOTE | 2021-11-27 17:16 | Urology Consultation ---
Date of Consultation November 27, 2021 Assessment & Plan (1) Foreign body in urethra: We reviewed the foreign body in his urethra. We discussed cystoscopy and foreign body removal. I suspect it will be straightforward similar to last time. We discussed the risks and benefits of this procedure. We discussed the risk of bleeding, infection, injury to the urinary tract, scar tissue formation, inability to remove the object and convert to an open procedure. We discussed that since he is likely going to be having another EGD performed, I will plan to perform cystoscopy at this time with him sedated. He expressed understanding and agreed with this plan. History of Present Illness Reason for Consultation: foreign body in urethra Attending Physician: Lex Mehta MD History of Present Illness This is a 21-year-old incarcerated male who presents to the ED on 11/27/2021 after reported ingestion of foreign body and insertion of foreign body into his urethra. He was previously seen in the emergency room approximately 1 week ago for the same complaint. At that time he underwent EGD with foreign body removal and cystoscopy with foreign body removal. He has been able to void a little bit of urine and thinks he might be able to void out the foreign body. He is not in any discomfort in his bladder. He is having some thoracic discomfort likely from the upper GI tract foreign body. Allergies Allergy/AdvReac Type Severity Reaction Status Date / Time No Known Allergies Allergy Unverified 11/27/21 16:05 Home Medications Medication Instructions Recorded Confirmed Type paroxetine HCl 30 mg tablet 30 mg PO HS 12/02/20 11/27/21 History mirtazapine 30 mg tablet 30 mg PO HS 11/21/21 11/27/21 History Patient History Medical History Depression H/O swallowed foreign body Surgical History H/O esophagogastroduodenoscopy Social History Smoking Status: Former smoker Tobacco Type: Cigarettes Second Hand Exposure: Yes; Hx Alcohol Use: No Hx Substance Use: No Preferred Language: Uzbek Communication Ability: Effective Merchandise Shopper Required: No Beliefs That Will Affect Care: None Current Living Situation: Other Current Living Situation Comment: Incarcerated at [facility] Feels Safe at Home: Yes Assistive Devices: None Review of Systems Review of Systems: 14 point review of systems negative except for otherwise indicated. Gastrointestinal: Upper GI tract discomfort Genitourinary: + as per Subjective / HPI (Voiding a little bit) Physical Exam Physical Exam: NAD, restraints in place Eyes: + anicteric sclerae; pupils not irregular Respiratory: normal respiratory effort; no respiratory distress, does not use accessory muscles and no cough Cardiovascular: well perfused Gastrointestinal (Abdomen): Inspection/Auscultation: abdomen not distended Musculoskeletal: Extremities: extremities normal to inspection Skin: normal turgor; no rashes and no lesions Neurologic: moves all extremities and awake Psychiatric: Orientation: alert and oriented x 3 Results & Data ([facility]) Vital Signs (Past 12 Hours) Vital Signs Temp Pulse Pulse Resp BP BP Pulse Ox 11/27/21 17:10 96 H 18 142/92 H 99 11/27/21 16:10 97 11/27/21 14:48 64 18 98 11/27/21 14:16 36.8 C 94 H 20 118/77 96 PG Care Time/CCT Total # of Minutes Spent Total Time Spent with Patient: Total time spent is greater than 50% in coordination of care (as documented) at patient's floor/unit and/or counseling patient: Coding Level of Care Code 86914 Inpt Consult Level 4 Diagnoses Foreign body in urethra T19.0XXA Encounter type: initial encounter (1) Foreign body in urethra Encounter type: initial encounter Qualified Code(s): T19.0XXA - Foreign body in urethra, initial encounter
[2021-11-27] MEDS ORDERED: MoRPHine SULFATE 4 MG/ML 1 ML CARP\\VIAL IV STA (17:37)
[2021-11-27] MEDS ORDERED: SODIUM CHLORIDE 0.9% 1000ML 500 ML IV ONE (17:37)
--- NOTE | 2021-11-27 17:58 | History & Physical Report ---
Date of Service November 27, 2021 Assessment & Plan (1) Foreign body in urethra: (2) Depression: Plan: Depression with suicidal ideations and continuous self-injuries behavior Denies SI/HI currently but self-injurious behavior has been a recurrent problem for this patient. - Psych consult appreciated - Mirtazapene Continue - Paroxetine Continue - Psych consultated on previous admission. see note from 11/22/21 for review (3) Foreign body ingestion: Plan: As above- appreciate urology and gastroenterology assistance (4) Schizophrenia: Plan: As above - if behavior becomes an issue add haldol History of Present Illness Primary Care Provider: [facility] Stefan Simon is a 21yo male with PMHx significant for depression and self- injurious behavior presented from [facility] alf 11/27/21 following discharge on 11/26/21 from [facility] for similar episode. Reportedly the patent states he swallowed some metal swallowed it with strings attached, and again placed a piece of plastic with metallic wrapper up his urethra. He was evaluated in the EMD had CT scan of his chest and abdomen/pelvis performed. Urology and Gastroenterology have been consulted. Patient will be admitted to medical floor following evaluation of the above. NPO. He is accompanied by his gaurds, who report that he is in a special holding cell and is evaluated by their special psychiatric team. Patient reports he does this because of "of suicidal th oughts and its a psychiatric thing". 11/21 after intentionally ingesting a sharp plastic object as well as intentionally shoving a plastic object up his urethra earlier in the day. Patient has done this several times before since being in alf - reports that he gets depressed and wants to hurt himself but does not have a plan to kill himself. He was admitted following this as well as had EGD performed with retrieval of some plastic and blue coth removed, as well as cystoscopy with removal of 5cm long nard plastic wrapped in paper removed from urethra. COVID test on admission: NEGATIVE Allergies Allergy/AdvReac Type Severity Reaction Status Date / Time No Known Allergies Allergy Unverified 11/27/21 16:05 Home Medications Medication Instructions Recorded Confirmed Type paroxetine HCl 30 mg tablet 30 mg PO HS 12/02/20 11/27/21 History mirtazapine 30 mg tablet 30 mg PO HS 11/21/21 11/27/21 History Past Med/Surg History Medical History (Updated 11/27/21 @ 18:22 by Ayanna Lindsay DO) Anxiety Depression H/O swallowed foreign body Schizophrenia Surgical History H/O esophagogastroduodenoscopy Social History Smoking Status: Former smoker Tobacco Type: Cigarettes Second Hand Exposure: Yes; Hx Alcohol Use: No Hx Substance Use: No Preferred Language: Faroese Communication Ability: Effective Real Estate Consultant Required: No Beliefs That Will Affect Care: None Current Living Situation: Other Current Living Situation Comment: Incarcerated at [facility] Feels Safe at Home: Yes Assistive Devices: None Review of Systems Review of Systems: REVIEW OF SYSTEMS: Constitutional: No fever, sweats or chills Eyes: No diplopia, no worsening or blurred vision ENT: normal hearing, no trouble swallowing Respiratory: No cough, sputum, dyspnea at rest or on exertion Cardiovascular: No chest pain, tightness or palpitations Abdomen: No pain, nausea, vomiting, diarrhea or constipation Musculoskeletal: No joint pain, calf pain, swelling Neurologic: No weakness, numbness/tingling, or balance problems Psychiatric: (+) depression and suicide thoughts Skin: No rash or itch Physical Exam Physical Exam: PHYSICAL EXAM: General: awake, alert, no apparent distress Head: Normocephalic, atraumatic with face gaurd in place ENT: PERRL, EOMI, no pharyngeal exudate, mucous membranes moist Neuro: AAO x 3, speech clear and appropriate, strength intact bilaterally 5/5, sensation intact and equal all extremities and dermatomes, no pronator drift Chest: equal rise and fall of the chest, no accessory muscle use, no heaves or thrills, Clear to auscultation, on room air, Cardiac: Regular rate and rhythm, skin warm dry, cap refill <3 seconds, peripheral pulses +2 no JVD, no murmur, no edema GI: NABS x 4 quadrants, soft, nontender to palpation, no rebound, guarding or tenderness : Spontaneously voiding, no pain, no CVA tenderness, Extremities: Normal inspection, no peripheral edema or erythema, calfs nontender to palpation Psych: Normal mood and affect cooperative and calm Skin: no rash or erythema Results & Data Results & Data ([facility]) Vital Signs (Past 12 Hours) Vital Signs Temp Pulse Pulse Resp BP BP Pulse Ox 11/27/21 17:10 96 H 18 142/92 H 99 11/27/21 16:10 97 11/27/21 14:48 64 18 98 11/27/21 14:16 36.8 C 94 H 20 118/77 96 Laboratory Results Abnormal lab results 11/27/21 11/27/21 Range/Units 15:00 15:00 Hgb 13.8 L (14.0-18.0) g/dL MCV 74.1 L (80-100) fL MCH 24.3 L (25-34) pg MPV 10.7 H (7.4-10.4) fL Total Protein 8.4 H (6.0-8.3) gm/dl Diagnostic Findings Abdomen/Pelvis CT 11/27/21 14:48 CT SCAN OF THE ABDOMEN AND PELVIS WITHOUT IV CONTRAST CLINICAL HISTORY: Ingested and penile foreign bodies. COMPARISON STUDY: Abdominal CT dated 11/26/2021. TECHNIQUE: CT scan of the abdomen and pelvis is performed from the lung bases to the proximal femora. Images are reviewed in the axial, sagittal, and coronal planes. IV contrast was not administered for this examination. A dose lowering technique was utilized adhering to the principles of ALARA. There is streak ar tifact from an electronic devices overlying the patient's back. CT DOSE: 487.31 mGy.cm FINDINGS: Lung bases: The heart is normal in size and without pericardial effusion. The lung bases are clear. Liver: The unenhanced liver is normal in size, contour, and attenuation. There is no intrahepatic biliary ductal dilatation. Gallbladder: Unremarkable. Spleen: Normal in size and attenuation. Pancreas: Unremarkable. Adrenal glands: Unremarkable. Kidneys: The unenhanced kidneys are normal in size and without hydronephrosis. There are no renal calculi identified. There is no evidence of contour deforming renal mass lesion. Abdominal vasculature: The abdominal aorta is normal in course and caliber. Stomach and bowel: Metallic foreign bodies are present within the gastric fundus on images #64 and #72. Metallic and low-density foreign body/bodies are present within the distal stomach/proximal duodenum on images #112 and #140. A metallic foreign body in the left upper quadrant on image #153 is likely within small bowel. Metallic foreign bodies are present within the ascending colon on image #222, the distal transverse colon on image #126, and within the sigmoid colon on image #333. There is no bowel obstruction. The appendix is not clearly visualized. Peritoneum: There is no intraperitoneal free air or abdominal ascites. Lymphadenopathy: None. Pelvic viscera: The bladder, prostate, and seminal vesicles are normal as visualized. There is an approximately 5.5 cm linear foreign body present within the penile urethra on axial image #437. This is located approximately 8 cm from the tip of the penis and extends into the perineum. Skeletal structures: No lytic or blastic lesions are seen. IMPRESSION: 1. There are numerous foreign bodies scattered throughout the stomach, duodenum, small bowel, and colon as detailed above. 2. A linear foreign body is present within the penile urethra as above. 3. No bowel obstruction. 4. No intraperitoneal free air is identified. ACT 112: Negative or not required by law. Electronically signed by: Henrique Slaughter M.D. 11/27/2021 4:[address] 11/27/21 14:48 CT OF THE CHEST WITHOUT IV CONTRAST CLINICAL HISTORY: FB, ingested toothbrushes wrapped metal penis FB COMPARISON STUDY: Chest CT November 21, 2021. TECHNIQUE: Axial images of the chest were obtained without IV contrast. Images were reviewed in the axial, sagittal, and coronal planes. IV contrast was not administered for this examination. Automated exposure control was utilized for the study. A dose lowering technique was utilized adhering to the principles of ALARA. FINDINGS: No enlarged axillary, mediastinal or hilar lymph nodes are present. The size of the heart is normal. There is no pericardial effusion. Note is made of a 3 cm linear metallic density within the mid esophagus. There is adjacent hypodense material. This represents an ingested foreign body. No additional ingested foreign bodies within the chest are noted. Metallic densities within the stomach and duodenum suggestive ingested foreign body, better depicted on the CT of the abdomen and pelvis which will be reported separately. There is no consolidation to suggest pneumonia. No pneumomediastinum is present. There is no pneumothorax or pleural effusion. IMPRESSION: 1. 3 cm linear metallic density within the mid esophagus with adjacent hypodense material. This represents an ingested foreign body. 2. Additional suspected ingested foreign bodies within the stomach and duodenum, better depicted on the CT of the abdomen and pelvis. Please see that report for further description. ACT 112: Negative or not required by law. Electronically signed by: Layton Liu M.D. 11/27/2021 4:03 PM Medications Administered Home Medications paroxetine HCl 30 mg tablet 30 mg PO HS 12/02/20 [History Confirmed 11/27/21] mirtazapine 30 mg tablet 30 mg PO HS 11/21/21 [History Confirmed 11/27/21] Discontinued Medications Sodium Chloride (Nss 1000ml) 500 mls @ 999 mls/hr IV .Q31M ONE Stop: 11/27/21 18:07 Last Admin: 11/27/21 17:50 Dose: 999 mls/hr Documented by: [id number] Morphine Sulfate (Morphine Sulfate 4 Mg/Ml 1 Ml Carp\\Vial) 4 mg IV NOW STA Stop: 11/27/21 17:38 Last Admin: 11/27/21 17:56 Dose: 4 mg Documented by: [id number] ECG Additional Comments: None obtained Code Status & VTE Plan Code Status CODE: FULL VTE: SCDS VTE Prophylaxis Plan VTE Prophylaxis will be ordered: Yes Supervising Physician Co-Signing Physician Notes I personally examined the patient and verified all tirado points of history and exam, discussed case, and agree with decision making with Fabiano TENORIO seen very briefly as he was being taken to OR for endoscopy and cystoscopy. hpi as above. breathing unlabored no accessory muscles skin no pallor foreign body ingestion - repeated. for OR imminently, GI and urology input appreciated uncontrolled schizophrenia otherwise as above PG Care Time/CCT Total # of Minutes Spent Total Time Spent with Patient: Total time spent is greater than 50% in coordination of care (as documented) at patient's floor/unit and/or counseling patient: Coding Level of Care Code INT OBSERVATION CARE 30M LVL 1 Diagnoses Foreign body in urethra T19.0XXA Encounter type: initial encounter Depression F32.A Depression Type: unspecified Foreign body ingestion T18.9XXA Encounter type: initial encounter Schizophrenia F20.9 (1) Depression Depression Type: unspecified Qualified Code(s): F32.A - Depression, unspecified (2) Foreign body in urethra Encounter type: initial encounter Qualified Code(s): T19.0XXA - Foreign body in urethra, initial encounter (3) Foreign body ingestion Encounter type: initial encounter Qualified Code(s): T18.9XXA - Foreign body of alimentary tract, part unspecified, initial encounter
--- NOTE | 2021-11-27 18:11 | Anesthesiology Consultation ---
Date of Service November 27, 2021 Assessment & Plan Chart Review Chart Review: Acceptable Risk for Surgery Consults Requested none ASA [id number] Proposed Anesthesia Anesthesia Type: General (RSI) Risk / Benefits Reviewed With: PT / POA / Parent / Guardian, Accepts Plan and Informed Consent Obtained History Surgery Operation Date: 11/27/21 18:40 Proposed Procedures p Esophagogastroduodenoscopy Dr Jeff - Santiago Jeff DO s Cystoscopy, Foreign Body Removal - Nakul Leslie MD Height/Weight Height: 5 ft 11 in Weight: 78.6 kg Allergies Allergy/AdvReac Type Severity Reaction Status Date / Time No Known Allergies Allergy Unverified 11/27/21 16:05 Medications Home Medications Medication Instructions Recorded Confirmed Last Taken paroxetine HCl 30 mg tablet 30 mg PO HS 12/02/20 11/27/21 11/20/21 18:30 mirtazapine 30 mg tablet 30 mg PO HS 11/21/21 11/27/21 11/20/21 18:30 NPO Date Last Intake of Fluids: 11/27/21 Time Last Intake of Fluids: 12:00 Date Last Intake of Solids: 11/27/21 Time Last Intake of Solids: 12:00 Last Intake of Solids Comment: Madan Harley Past Medical History Medical History (Updated 11/27/21 @ 18:22 by Ayanna Lindsay DO) Anxiety Depression H/O swallowed foreign body Schizophrenia Exercise / Class Metabolic Activity II 4-5 Yardwork/Stairs/Walk up hill Past Surgical History Surgical History H/O esophagogastroduodenoscopy Past Anesthesia History No Hx of Anesthesia Complications and No Family Hx of Anesthesia Complications History of PONV No Hx of PONV and No Hx of Motion Sickness Social History Smoking Status: Former smoker tobacco type: cigarettes Hx Alcohol Use: No Hx Substance Use: No substance use type: does not use Physical Exam Vital Signs Last Vital Signs Temp 36.8 C 11/27/21 14:16 Pulse 83 11/27/21 17:56 Resp 20 11/27/21 17:56 BP 108/83 11/27/21 17:56 Pulse Ox 97 11/27/21 17:56 ENMT Mouth: no TMJ abnormality Thyromental Distance: > or= 3.5 Finger Breadths Mallampati Class: II Neck normal visual inspection and trachea midline; neck extension not limited Respiratory normal respiratory effort Auscultation: lungs clear to auscultation bilaterally Cardiovascular Rate/Rhythm: regular rate and regular rhythm Heart Sounds: no murmur Musculoskeletal Spine: normal cervical ROM Extremities: full ROM of extremities Neurologic moves all extremities Psychiatric Orientation: alert and oriented x 3 Testing Laboratory Results 11/27/21 15:00 11/27/21 15:00 Chest X-Ray 11/27/21 CT chest shows 3mm FB in mid esophagus
[2021-11-27] MEDS ORDERED: MIDAZOLAM HCL 1 MG/ML 2ML VIAL ONE ×2 (18:12→18:26)
[2021-11-27] MEDS ORDERED: fentaNYL citrate 100 MCG/2 ML VIAL ONE (18:12)
[2021-11-27] MEDS ORDERED: ePHEDrine sulfate 50 MG/ML AMP IV PRN (18:13)
[2021-11-27] MEDS ORDERED: MEPERIDINE HCL 25 MG/ML CARP/VIAL IV PRN (18:13)
[2021-11-27] MEDS ORDERED: ONDANSETRON INJ 2 MG/ML 2 ML VIAL IV PRN ×2 (18:13→21:54)
[2021-11-27] MEDS ORDERED: MoRPHine SULFATE 10 MG/ML CARP/VIAL IV PRN (18:13)
[2021-11-27] MEDS ORDERED: fentaNYL citrate 100 MCG/2 ML VIAL IV PRN (18:13)
[2021-11-27] MEDS ORDERED: ATROPINE SULFATE 0.1 MG/ML 10ML SYR IV PRN (18:13)
[2021-11-27] MEDS ORDERED: ONDANSETRON INJ 2 MG/ML 2 ML VIAL ONE (18:22)
[2021-11-27] MEDS ORDERED: LIDOCAINE 2% 2 ML VIAL/AMP(20MG/ML) INFIL ONE (18:22)
[2021-11-27] MEDS ORDERED: DEXAMETHASONE SOD INJ 4 MG/ML VIAL ONE (18:22)
[2021-11-27] MEDS ORDERED: PROPOFOL IV EMULSION 10 MG/ML 20 ML VIAL IV ONE ×2 (18:22→19:24)
[2021-11-27] MEDS ORDERED: SUCCINYLCHOLINE CHLORIDE 20 MG/ML 10 ML VIAL IV ONE (18:22)
[2021-11-27 18:26] LABS: Appearance Urine Clear (Clear); Bacteria Urine Automated Negative (Negative); Bilirubin Urine Negative (Negative); Blood Urine Negative (Negative); Color Urine Yellow; Glucose Urine UA Negative (Negative); Ketones Urine Negative (Negative); Leukocyte Esterase Urine 2+ (Negative); Nitrite Urine Negative (Negative); Protein Urine Negative (Negative); RBC Urine Automated 0-4 /hpf (0-4); Specific Gravity Urine 1.022 (1.000-1.030); Urobilinogen Urine Negative (Negative); WBC Urine Automated >30 /hpf (0-5); pH Urine 5.5 (4.5-7.5)
--- NOTE | 2021-11-27 18:28 | Gastrointestinal Consultation ---
Date of Consultation November 27, 2021 Assessment & Plan (1) Foreign body ingestion: Given foreign body ingestion we will plan for endoscopy this evening. As there are a number of objects in the duodenum I am not likely to be able to retrieve these and would recommend the patient be admitted for observation. The patient will need serial x-rays and likely a general surgical evaluation. The patient and I discussed the risks of the procedure to include bleeding infection perforation, pain and need for follow-up studies. We also discussed the increased risk of perforation given the acute nature of his presentation and objects that he swallowed. Upper endoscopy planned for today Admission to internal medicine service as per ER History of Present Illness Reason for Consultation: Foreign body ingestion History of Present Illness The patient is a 21-year-old male who resides at [facility] who presented with a foreign body ingestion 1.5 weeks ago. He presents again today with similar ingestion. Of note the patient also placed foreign bodies within his urethra. Upper endoscopy has been requested for foreign body removal. Allergies Allergy/AdvReac Type Severity Reaction Status Date / Time No Known Allergies Allergy Unverified 11/27/21 16:05 Home Medications Medication Instructions Recorded Confirmed Type paroxetine HCl 30 mg tablet 30 mg PO HS 12/02/20 11/27/21 History mirtazapine 30 mg tablet 30 mg PO HS 11/21/21 11/27/21 History Patient History Medical History (Updated 11/27/21 @ 18:22 by Ayanna Lindsay DO) Anxiety Depression H/O swallowed foreign body Schizophrenia Surgical History H/O esophagogastroduodenoscopy Social History Smoking Status: Former smoker Tobacco Type: Cigarettes Second Hand Exposure: Yes; Hx Alcohol Use: No Hx Substance Use: No Preferred Language: Georgian Communication Ability: Effective Sr. 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 Required: No Beliefs That Will Affect Care: None Current Living Situation: Other Current Living Situation Comment: Incarcerated at [facility] Feels Safe at Home: Yes Assistive Devices: None Review of Systems Constitutional: no sweats and no malaise Eyes: no diplopia Ear, Nose, Mouth, Throat: no ear trauma Respiratory: no cough and no change in sputum Cardiovascular: no chest pain and no chest pain with activity Gastrointestinal: no bloating and no nausea Genitourinary: + problem reported (Foreign body placed into urethra) Musculoskeletal: no radicular pain Integumentary: no rash Endocrine: no polydipsia Hematologic / Lymphatic: no coagulopathy Physical Exam Constitutional: WD/WN, vitals as above Eyes: PERRL, conjunctivae normal, anicteric sclerae ENMT: external ear and nose normal, oropharynx normal Neck: trachea midline, no thyromegaly Respiratory: normal respiratory effort, lungs clear to auscultation Cardiovascular: Rate/Rhythm: regular rate Skin: no rashes, warm and dry Results & Data ([facility]) Vital Signs (Past 12 Hours) Vital Signs Temp Pulse Pulse Pulse Resp BP BP 11/27/21 18:13 37.2 C 90 18 133/78 11/27/21 17:56 83 20 11/27/21 17:10 96 H 18 11/27/21 16:10 11/27/21 14:48 64 18 11/27/21 14:16 36.8 C 94 H 20 118/77 BP Pulse Ox 11/27/21 18:13 100 11/27/21 17:56 108/83 97 11/27/21 17:10 142/92 H 99 11/27/21 16:10 97 11/27/21 14:48 98 11/27/21 14:16 96 Laboratory Results Laboratory Results - last 24 hr 11/27/21 11/27/21 11/27/21 15:00 15:00 Unknown WBC 6.97 RBC 5.67 Hgb 13.8 L Hct 42.0 MCV 74.1 L MCH 24.3 L MCHC 32.9 RDW Std Deviation 37.0 RDW Coeff of Bassem 13.8 Plt Count 264 MPV 10.7 H Immature Gran % (Auto) 0.1 Neut % (Auto) 68.6 Lymph % (Auto) 24.0 [place] % (Auto) 6.6 Eos % (Auto) 0.6 Baso % (Auto) 0.1 Neut # (Auto) 4.78 Lymph # (Auto) 1.67 [place] # (Auto) 0.46 Eos # (Auto) 0.04 Baso # (Auto) 0.01 Immature Gran # (Auto) 0.01 Ovalocytes 1+ Sodium 136 Potassium 4.0 Chloride 99 Carbon Dioxide 30 Anion Gap 7 BUN 22 Creatinine 1.15 Est Cr Clr Drug Dosing 108.2 Est GFR ( Amer) 104.8 Est GFR (Non-Af Amer) 90.5 BUN/Creatinine Ratio 19.1 Glucose 92 Calcium 10.0 Total Bilirubin 0.4 AST 25 ALT 35 Alkaline Phosphatase 75 Total Protein 8.4 H Albumin 4.8 Globulin 3.6 Albumin/Globulin Ratio 1.3 Urine Color Urine Appearance Urine pH Ur Specific [place] Urine Protein Urine Glucose (UA) Urine Ketones Urine Blood Urine Nitrite Urine Bilirubin Urine Urobilinogen Ur Leukocyte Esterase Urine WBC (Auto) Urine RBC (Auto) U Hyaline Cast (Auto) U Epithel Cells (Auto) Urine Bacteria (Auto) SARS-CoV-2, RNA, NAAT NEGATIVE 11/27/21 Unknown WBC RBC Hgb Hct MCV MCH MCHC RDW Std Deviation RDW Coeff of Bassem Plt Count MPV Immature Gran % (Auto) Neut % (Auto) Lymph % (Auto) [place] % (Auto) Eos % (Auto) Baso % (Auto) Neut # (Auto) Lymph # (Auto) [place] # (Auto) Eos # (Auto) Baso # (Auto) Immature Gran # (Auto) Ovalocytes Sodium Potassium Chloride Carbon Dioxide Anion Gap BUN Creatinine Est Cr Clr Drug Dosing Est GFR ( Amer) Est GFR (Non-Af Amer) BUN/Creatinine Ratio Glucose Calcium Total Bilirubin AST ALT Alkaline Phosphatase Total Protein Albumin Globulin Albumin/Globulin Ratio Urine Color Yellow Urine Appearance Clear Urine pH 5.5 Ur Specific [place] 1.022 Urine Protein Negative Urine Glucose (UA) Negative Urine Ketones Negative Urine Blood Negative Urine Nitrite Negative Urine Bilirubin Negative Urine Urobilinogen Negative Ur Leukocyte Esterase 2+ H Urine WBC (Auto) >30 H Urine RBC (Auto) 0-4 U Hyaline Cast (Auto) 10-30 H U Epithel Cells (Auto) 5-10 H Urine Bacteria (Auto) Negative SARS-CoV-2, RNA, NAAT Diagnostic Findings CT OF THE CHEST WITHOUT IV CONTRAST CLINICAL HISTORY: FB, ingested toothbrushes wrapped metal penis FB COMPARISON STUDY: Chest CT November 21, 2021. TECHNIQUE: Axial images of the chest were obtained without IV contrast. Images were reviewed in the axial, sagittal, and coronal planes. IV contrast was not administered for this examination. Automated exposure control was utilized for the study. A dose lowering technique was utilized adhering to the principles of ALARA. FINDINGS: No enlarged axillary, mediastinal or hilar lymph nodes are present. The size of the heart is normal. There is no pericardial effusion. Note is made of a 3 cm linear metallic density within the mid esophagus. There is adjacent hypodense material. This represents an ingested foreign body. No additional ingested foreign bodies within the chest are noted. Metallic densities within the stomach and duodenum suggestive ingested foreign body, better depicted on the CT of the abdomen and pelvis which will be reported separately. There is no consolidation to suggest pneumonia. No pneumomediastinum is present. There is no pneumothorax or pleural effusion. IMPRESSION: 1. 3 cm linear metallic density within the mid esophagus with adjacent hypodense material. This represents an ingested foreign body. 2. Additional suspected ingested foreign bodies within the stomach and duodenum, better depicted on the CT of the abdomen and pelvis. Please see that report for further description. (1) Foreign body ingestion Encounter type: initial encounter Qualified Code(s): T18.9XXA - Foreign body of alimentary tract, part unspecified, initial encounter
--- NOTE | 2021-11-27 19:24 | Post Operative Brief Note ---
Immediate Post Op Note v1 Date of Surgery November 27, 2021 Pre & Post Diagnosis Operation Date: 11/27/21 18:40 Pre-Op Diagnosis: Foreign body ingestion Post-Op Diagnosis: Foreign body removal I identified the patient and participated in the time-out.: Yes Procedure Operation Date: 11/27/21 18:40 Actual Procedures p Esophagogastroduodenoscopy(Not Applicable) - Santiago Jeff DO Surgeon Santiago Jeff DO Party Plan Sales Agent none Estimated Blood Loss 0 Findings Consistent with Post-Op Diagnosis
--- NOTE | 2021-11-27 19:29 | Communication Note ---
Date of Service: November 27, 2021 The patient had swallowed several foreign bodies which were tied together with a string. After much difficulty the foreign bodies were removed from the proximal jejunum stomach and the esophagus. Recommendations KUB in a.m. to ensure no other foreign bodies remain in the small intestine N.p.o. tonight May advance diet as tolerated tomorrow if no foreign bodies are noted on the KUB Please call with questions
[2021-11-27] MEDS ORDERED: ceFAZolin 330 MG/ML 1 GM VIAL ONE (19:33)
[2021-11-27] MEDS ORDERED: PHENYLEPHRINE HCL 10 MG/ML VIAL ONE (19:40)
--- NOTE | 2021-11-27 19:48 | Operative Report ---
PG Post Operative Report Pre & Post Diagnosis Operation Date: 11/27/21 18:40 Pre-Op Diagnosis: Foreign body ingestion; Foreign body in urethra Post-Op Diagnosis: Foreign body ingestion; Foreign body in urethra I identified the patient and participated in the time-out.: Yes Procedure Operation Date: 11/27/21 18:40 Actual Procedures p Esophagogastroduodenoscopy(Not Applicable) - Santiago Jeff DO s Cystoscopy, Foreign Body Removal(Not Applicable) - Nakul Leslie MD Surgeon Nakul Leslie MD Navy D[employer] none Estimated Blood Loss 0 Findings Consistent with Post-Op Diagnosis Specimens Urethral foreign body Drains 18 Citizen Of [place] Hernandez catheter per urethra Anesthesia Type General Complications none Disposition Disposition: Recovery Room Indications This is a 21-year-old male who presented to the emergency department on 11/27/2021 with reports of having ingested foreign bodies and inserted foreign body into his urethra. CT scan confirmed foreign objects to be in these positions. He is being brought to the OR for combined EGD and cystoscopy for foreign body removal. Description of Procedure Upon arrival in the OR, the patient was already asleep under anesthesia, having just completed EGD and removal of gastric/esophageal foreign body. He was then transferred to the cystoscopy table and placed in the dorsolithotomy position. All pressure points were appropriately padded. He was prepped and draped in the usual sterile fashion and a timeout was performed. A well-lubricated cystoscope was inserted per urethra. In the pendulous urethra and extending to the bulbar urethra, a foreign body was visible. I used the stent graspers to grasp the end of this and remove it. The end of the foreign body was friable and distorted to a couple pieces -upon removal today appeared to be paper. The entire foreign body was then removed. The cystoscope was then reinserted and the urethra was once again expected. There was some irritated mucosa within the bulbar urethra but no overt tears or perforations. The urethral sphincter appeared intact. His prostate was diminutive. The bladder was of normal size with ureteral orifices in orthotopic position. There were no additional foreign bodies identified within the urethra or the lumen of the bladder. There were a couple erythematous patches on the posterior wall of the bladder, likely consistent with recent indwelling Hernandez catheter. The cystoscope was removed and an 18 Citizen [place] coud catheter was inserted per urethra. The balloon was inflated with 10 mL of normal saline and the catheter was attached to gravity drainage. At this point the case was concluded. The patient was awakened from general anesthesia and brought to the PACU in stable condition. Upon final inspection, the foreign body was a small clip of metal that was bent back upon itself, wrapped in a juice package, which was subsequently wrapped in a waxy paper. The total length was approximately 5 cm and width when it was totally dropped was approximately 5 mm. I attest to the content of the Intraoperative Record and any orders documented therein. Any exceptions are noted below.
[2021-11-27] MEDS ORDERED: ceFAZolin 2000MG 2,000 MG/15 ML SYR IV ONE (19:52)
--- NOTE | 2021-11-27 19:52 | GI REPORT ---
Patient Name: Stefan Simon Procedure Date: 11/27/2021 6:40 PM Date of : 2000 Admit Type: Emergency Department Age: 21 Gender: Male Attending MD: Santiago Jeff DO Procedure: Upper GI endoscopy Providers: Santiago Jeff DO Referring MD: Lex Mehta M.d. Indications: Foreign body in the esophagus, Foreign body in the stomach, Foreign body in the small bowel Medicines: General Anesthesia Complications: No immediate complications. Estimated blood loss: Minimal. Estimated Blood Loss: Estimated blood loss was minimal. Procedure: Pre-Anesthesia Assessment: - Prior to the procedure, a History and Physical was performed, and patient medications, allergies and sensitivities were reviewed. The patient's tolerance of previous anesthesia was reviewed. - The risks and benefits of the procedure and the sedation options and risks were discussed with the patient. All questions were answered and informed consent was obtained. - Patient identification and proposed procedure were verified prior to the procedure by the nurse and the corporate treasurer. The procedure was verified in the pre-procedure area in the procedure room. - Pre-procedure physical examination revealed no contraindications to sedation. - ASA Grade Assessment: II - A patient with mild systemic disease. - After reviewing the risks and benefits, the patient was deemed in satisfactory condition to undergo the procedure. - The anesthesia plan was to use general anesthesia. - Immediately prior to administration of medications, the patient was re-assessed for adequacy to receive sedatives. - The heart rate, respiratory rate, oxygen saturations, blood pressure, adequacy of pulmonary ventilation, and response to care were monitored throughout the procedure. - The physical status of the patient was re-assessed after the procedure. After obtaining informed consent, the endoscope was passed under direct vision. Throughout the procedure, the patient's blood pressure, pulse, and oxygen saturations were monitored continuously. The Endoscope was introduced through the mouth, and advanced to the jejunum. The patient tolerated the procedure well. The upper GI endoscopy was technically difficult and complex due to presence of foreign body. Successful completion of the procedure was aided by performing the maneuvers documented (below) in this report. Findings: String with attached metal objects were found extending to the lower third of the esophagus. The string and metal objects were also found within the stomach. The examined duodenum was normal aside from a string extending into the proximal jejunum. The jejunum contained a foreign body. The endoscope was removed, and an overtube with cap was fitted. The scope and overtube were then reinserted via the mouth and advanced to the esophagus to protect the esophagus and to aid in foreign body removal. Removal of plastic utensil, metal objects and string was accomplished with a Raptor grasping device and snare. Estimated blood loss was minimal. Impression: - Multiple foreign bodies were found extending from the esophagus to the proximal jejunum. These were all attached together and removed after much difficulty with a snare through an overtube. - An overtube with cap was used to protect the esophagus and to aid in foreign body removal. Recommendation: - Observe patient's clinical course following today's procedure with therapeutic intervention. - NPO today. - Perform a flat plate abdominal x-ray tomorrow to screen for other foreign bodies in the small intestine or colon. Santiago Jeff D.O. Santiago Jeff, DO 11/27/2021 7:51:45 PM This report has been signed electronically. Note Initiated On: 11/27/2021 6:40 PM Number of Addenda: 0 I attest to the content of the Intraoperative Record and orders documented therein, exceptions below {[id number]}
--- NOTE | 2021-11-27 20:22 | Anesthesiology Progress Note ---
Date of Service November 27, 2021 Anesthesia Post Procedure Vital Signs Vital Signs: Temp Pulse Pulse Pulse Pulse Resp BP 11/27/21 20:20 78 14 11/27/21 20:10 93 H 16 11/27/21 20:00 36 C L 95 H 21 11/27/21 18:13 37.2 C 90 18 11/27/21 17:56 83 20 11/27/21 17:10 96 H 18 11/27/21 16:10 11/27/21 14:48 64 18 11/27/21 14:16 36.8 C 94 H 20 118/77 BP BP Pulse Ox 11/27/21 20:20 133/89 100 11/27/21 20:10 134/76 100 11/27/21 20:00 133/83 100 11/27/21 18:13 133/78 100 11/27/21 17:56 108/83 97 11/27/21 17:10 142/92 H 99 11/27/21 16:10 97 11/27/21 14:48 98 11/27/21 14:16 96 Transfer of Care Handoff Completed per policy Notes Mental Status: alert / awake / arousable Patient Amnestic to Procedure: Yes Nausea / Vomiting: adequately controlled Pain: adequately controlled Airway Patency, RR, SpO2: stable & adequate BP & HR: stable & adequate Hydration State: stable & adequate Anesthetic Complications: no major complications apparent and Pt Satisfied with anesthetic care
[2021-11-27] MEDS ORDERED: ACETAMINOPHEN 1,000 MG/100 ML VIAL IV PRN (21:54)
[2021-11-27] MEDS: MoRPHine SULFATE 2 MG/ML CARP IV PRN (22:28)
[2021-11-27] MEDS: MIRTAZAPINE TAB 15 MG TAB PO SCH (22:29)
[2021-11-28] MEDS: MoRPHine SULFATE 2 MG/ML CARP IV PRN ×2 (03:45→19:40)
[2021-11-28 07:44] LABS: Hypochromasia Present
--- NOTE | 2021-11-28 09:00 | XRay Report ---
KUB CLINICAL HISTORY: Foreign body assessment. FINDINGS: 2 AP, portable, supine abdominal radiographs are compared to study dated 11/26/2021 and [place] [facility] with abdominal CT dated 11/27/2021. There is a nonobstructed abdominal bowel gas pattern. 3 roun d metallic foreign bodies are again seen projecting over the colon. A curvilinear metallic foreign allen dy projects over the left upper quadrant. Additional metallic foreign bodies seen in the stomach on y esterday's CT scan abdomen removed. Sutures material projects below the left hemidiaphragm. The bony structures appear intact. The lung bases are clear as imaged. IMPRESSION: There are least 4 residual radiodense foreign bodies as above. Electronically signed by: Henrique Slaughter M.D. 11/28/2021 8:57 AM
[2021-11-28 09:46] LABS: Hematocrit (blood only) 41.6 % (42-52); Immature Granulocytes # (auto) 0.01 K/uL (0.00-0.02); Immature Granulocytes % (auto) 0.1 %; Lymphocytes # (auto) 0.74 K/uL (1.2-3.4); Lymphocytes % (auto) 10.9 %; Mean Corpuscular Hemoglobin 23.7 pg (25-34); Mean Corpuscular Hgb Conc 31.3 g/dL (32-36); Mean Corpuscular Volume 75.8 fL (80-100); Mean Platelet Volume 10.3 fL (7.4-10.4); Monocytes # (auto) 0.49 K/uL (0.11-0.59); Monocytes % (auto) 7.2 %; Neutrophils # (auto) 5.54 K/uL (1.4-6.5); Neutrophils % (auto) 81.8 %; Platelet Count 252 K/uL (130-400); RDW Coefficient of Variation 14.3 % (11.5-14.5); RDW Standard Deviation 39.8 fL (36.4-46.3); Red Blood Count 5.49 M/uL (4.7-6.1); White Blood Count 6.78 K/uL (4.8-10.8)
[2021-11-28 10:13] LABS: Potassium 4.5 mmol/L (3.5-5.1)
[2021-11-28 10:14] LABS: Calcium 9.1 mg/dl (8.5-10.1); Creatinine Clr Calc Pharmacy 120.7 ml/min; Est GFR (African American) 124.1 ml/min; Est GFR (Non-African American) 107.1 ml/min; Magnesium 2.1 mg/dl (1.7-2.4)
--- NOTE | 2021-11-28 13:10 | Urology Progress Note ---
Date of Service November 28, 2021 Assessment & Plan (1) Foreign body in urethra: Plan: 21-year-old incarcerated male who presents to the ED on 11/27/2021 after reported ingestion of foreign body and insertion of foreign body into his urethra - POD #1 s/p Cystoscopy, Foreign Body Removal and Hernandez catheter placement with Dr. Leslie. - Afebrile. - Labs reviewed - No leukocytosis. Renal function normal. - Hernandez catheter intact, draining clear yellow urine. - Discussed with patient that our recommendation is for the catheter to remain in place for at least 5 days to allow time for healing and can be removed at the shelter. He is adamantly requesting that the catheter be removed sooner as it is uncomfortable. Risks of this discussed. He verbalized an understanding but continues to request catheter removal. - He can follow-up with urology as needed. - Thank you for allowing us to participate in the acute care of Mr. Simon. Please reconsult us with additional questions, concerns or changes in patient status. Admission and Anticipated Discharge Date Admission Date: November 27, 2021 Supervising Physician Co-Signing Physician Notes Discussed patient with [facility]RI. Agree with plan. Subjective Pt examined at bedside. Awake, resting in bed on arrival. x 3 guards at bedside. No acute distress. Hernandez draining clear yellow urine. Reports the catheter is uncomfortable and he would like it removed. States "I will pull it out myself at the shelter." Review of Systems Constitutional: as per Subjective / HPI Genitourinary: + as per Subjective / HPI Physical Exam Constitutional: well developed and well nourished; no acute distress Respiratory: no respiratory distress and no labored breathing Neurologic: awake Psychiatric: Orientation: alert, oriented x 3 and cooperative Genitourinary: Hernandez catheter intact Results & Data ([facility]) Vital Signs (Past 12 Hours) Vital Signs Temp Pulse Resp BP Pulse Ox 11/28/21 09:11 36.8 C 72 18 100/68 100 11/28/21 03:48 36.5 C 11/28/21 03:27 35.8 C L 65 16 100/67 100 PG Care Time/CCT Total # of Minutes Spent Total Time Spent with Patient: Total time spent is greater than 50% in coordination of care (as documented) at patient's floor/unit and/or counseling patient: Coding Level of Care Code 83983 Subseq Hosp Care Lvl 2 Diagnoses Foreign body in urethra T19.0XXA Encounter type: initial encounter (1) Foreign body in urethra Encounter type: initial encounter Qualified Code(s): T19.0XXA - Foreign body in urethra, initial encounter
[2021-11-28] MEDS ORDERED: POLYETHYLENE (MIRALAX) 17 GM PACK PO ONE (13:18)
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
--- NOTE | 2021-11-28 14:33 | Gastroenterology Progress Note ---
Date of Service November 28, 2021 Assessment & Plan (1) Foreign body ingestion: Plan: Give a Miralax prep in an effort to flush the remaining foreign bodies through the intestines. Daily X-ray. Keep on clear liquids po until all FB have passed. Recommend surgical consult if not already arranged. Admission and Anticipated Discharge Date Admission Date: November 27, 2021 Supervising Physician Co-Signing Physician Notes Attending attestation I have seen, examined this patient, and agree with the findings and above by our mid-level provider JONA Ware, with the following additions: Ingested foreign bodies, no acute abodmen, can give prep to help flush out, KUB in am. Subjective EGD last night w endoscopic removal of string and tied together metal objects that were place in the esophagus, stomach and jejunum. Today, still w diffuse abdominal pain though hungry. X-ray today w 4 remaining objects. Review of Systems Review of Systems: ROS: Gen: Denies weakness, fevers, weight loss Eyes: No eye redness, or pain, no recent vision changes Resp: No SOB, no cough Cardio: No palpitations/irregular beats, no chest pain GI: As per HPI, otherwise (-) : + ruiz cath in place for urine drainage - asked when it can be removed. Skin: No jaundice, itching or new rashes Physical Exam Constitutional: well developed and cooperative Eyes: PERRL, conjunctivae normal, anicteric sclerae ENMT: external ear and nose normal, oropharynx normal Neck: trachea midline, no thyromegaly Respiratory: normal respiratory effort, lungs clear to auscultation Cardiovascular: RRR, no murmur, no edema Skin: no rashes, warm and dry Neurologic: PERRL, EOMI, accommodation nl, no face palsy, no dysarthria awake; not confused Psychiatric: A+Ox3, euthymic affect Orientation: alert, oriented x 3 and cooperative Results & Data ([facility]) Vital Signs (Past 12 Hours) Vital Signs Temp Pulse Resp BP Pulse Ox 11/28/21 09:11 36.8 C 72 18 100/68 100 11/28/21 03:48 36.5 C 11/28/21 03:27 35.8 C L 65 16 100/67 100 Laboratory Results WBC 6.9, Hb 13.8, Hct 42, Plts 264, Na 136, K 4.0, BUN 22, Cr. 1.15, glucose 92. Diagnostic Findings Abd x-ray 11/28/21: There are least 4 residual radiodense foreign bodies as above. (1) Foreign body ingestion Encounter type: initial encounter Qualified Code(s): T18.9XXA - Foreign body of alimentary tract, part unspecified, initial encounter
[2021-11-28] MEDS: ACETAMINOPHEN 325 MG TAB PO PRN (14:48)
--- NOTE | 2021-11-28 16:29 | Electrocardiogram Report ---
Test Reason : Blood Pressure : / mmHG Vent. Rate : 086 BPM Atrial Rate : 086 BPM P-R Int : 158 ms QRS Dur : 088 ms QT Int : 362 ms P-R-T Axes : 071 067 065 degrees QTc Int : 433 ms Normal sinus rhythm Normal ECG No previous ECGs available Confirmed by Benjamin Hidalgo ([id number]) on 11/28/2021 4:28:58 PM Referred By: REFERRED SELF Confirmed By:Benjamin Hidalgo
[2021-11-28] MEDS: haloperidoL 5 MG TAB PO SCH (19:41)
[2021-11-28] MEDS: MIRTAZAPINE TAB 15 MG TAB PO SCH (19:41)
[2021-11-28] MEDS: PARoxetine HCL 10 MG TAB PO SCH (19:41)
[2021-11-29] MEDS: POLYETHYLENE (MIRALAX) 17 GM PACK PO SCH ×3 (07:30→20:35)
[2021-11-29] MEDS ORDERED: POLYETHYLENE (MIRALAX) 17 GM PACK PO ONE (08:18)
--- NOTE | 2021-11-29 09:13 | XRay Report ---
KUB CLINICAL HISTORY: Foreign body progression. COMPARISON STUDY: CT of the abdomen and pelvis November 27, 2021. KUB November 28, 2021. FINDINGS: There is no evidence for a bowel obstruction. 4 metallic foreign bodies are again noted. Sp ecifically, 2 round metallic foreign bodies are noted within the right colon. These are similar posit ion to prior exam. There has been slight distal migration of a linear metallic ingested foreign body within the mid descending colon. An additional round metallic foreign body, possibly within the sigmo id colon is noted. There has been minimal progression. IMPRESSION: Redemonstration of 4 ingested metallic foreign bodies. Minimal distal migration of a few of these foreign bodies, as described above. ACT 112: Negative or not required by law. Electronically signed by: Layton Liu M.D. 11/29/2021 9:11 AM
--- NOTE | 2021-11-29 09:23 | Anesthesiology Consultation ---
Date of Service November 29, 2021 Assessment & Plan (1) Encounter for pre-operative examination: Chart Review Chart Review: Acceptable Risk for Surgery History Surgery Operation Date: 11/27/21 18:40 Proposed Procedures p Esophagogastroduodenoscopy Dr oTmer Jeff DO s Cystoscopy, Foreign Body Removal - Nakul Leslie MD Operation Date: 11/29/21 17:40 Proposed Procedures p Colonoscopy Dr Alanis Thapa MD Height/Weight Height: 5 ft 10 in Weight: 78.6 kg Allergies Allergy/AdvReac Type Severity Reaction Status Date / Time No Known Allergies Allergy Unverified 11/27/21 16:05 Medications Home Medications Medication Instructions Recorded Confirmed Last Taken paroxetine HCl 30 mg tablet 30 mg PO HS 12/02/20 11/27/21 11/20/21 18:30 mirtazapine 30 mg tablet 30 mg PO HS 11/21/21 11/27/21 11/20/21 18:30 Active Medications Generic Name Dose Route Start Last Admin Trade Name Freq PRN Reason Stop Dose Admin Acetaminophen 650 mg 11/28/21 14:15 11/28/21 14:48 Acetaminophen 325 Mg Tab PO 12/28/21 14:14 650 mg Q4H PRN Administration Pain Haloperidol 2.5 mg 11/28/21 21:00 11/28/21 19:41 Haloperidol 5 Mg Tab PO 12/28/21 20:59 2.5 mg HS WAYNE Administration Mirtazapine 30 mg 11/27/21 21:54 11/28/21 19:41 Mirtazapine Tab 15 Mg Tab PO 12/27/21 21:53 30 mg HS WAYNE Administration Morphine Sulfate 2 mg 11/27/21 21:54 11/28/21 19:40 Morphine Sulfate 2 Mg/Ml Carp IV 12/11/21 21:53 2 mg Q4 PRN Administration severe Pain Paroxetine HCl 30 mg 11/28/21 21:00 11/28/21 19:41 Paroxetine Hcl 10 Mg Tab PO 12/28/21 20:59 30 mg HS WAYNE Administration NPO Date Last Intake of Fluids: 11/27/21 Time Last Intake of Fluids: 12:00 Date Last Intake of Solids: 11/27/21 Time Last Intake of Solids: 12:00 Last Intake of Solids Comment: Mac n cheese. Broccoli Past Medical History Medical History Anxiety Depression H/O swallowed foreign body Schizophrenia Past Surgical History Surgical History H/O esophagogastroduodenoscopy Social History Smoking Status: Former smoker tobacco type: cigarettes Do You Dip or Chew Tobacco: No Hx Alcohol Use: No Hx Substance Use: No substance use type: does not use Physical Exam Vital Signs Last Vital Signs Temp 36.4 C L 11/29/21 08:32 Pulse 60 11/29/21 08:32 Resp 16 11/29/21 08:32 BP 115/73 11/29/21 08:32 Pulse Ox 100 11/29/21 08:32 Testing Laboratory Results 11/28/21 09:13 11/28/21 09:13 Urine Color Yellow 11/27/21 Unknown Urine Appearance Clear (Clear) 11/27/21 Unknown Urine pH 5.5 (4.5-7.5) 11/27/21 Unknown Ur Specific [place] 1.022 (1.000-1.030) 11/27/21 Unknown Urine Protein Negative (Negative) 11/27/21 Unknown Urine Glucose (UA) Negative (Negative) 11/27/21 Unknown Urine Ketones Negative (Negative) 11/27/21 Unknown Urine Nitrite Negative (Negative) 11/27/21 Unknown Ur Leukocyte Esterase 2+ (Negative) H 11/27/21 Unknown Urine WBC (Auto) >30 /hpf (0-5) H 11/27/21 Unknown Urine RBC (Auto) 0-4 /hpf (0-4) 11/27/21 Unknown U Hyaline Cast (Auto) 10-30 /lpf (0-5) H 11/27/21 Unknown U Epithel Cells (Auto) 5-10 /lpf (0-5) H 11/27/21 Unknown Urine Bacteria (Auto) Negative (Negative) 11/27/21 Unknown 11/27/21 Unknown Urine Culture - Preliminary Urine,Clean Catch Pin-point growth present, reincubating.
[2021-11-29] MEDS: MoRPHine SULFATE 2 MG/ML CARP IV PRN ×2 (09:35→21:35)
--- NOTE | 2021-11-29 09:42 | Gastroenterology Progress Note ---
Date of Service November 29, 2021 Assessment & Plan (1) Foreign body: Plan: Likely all 4 remaining FBs are in the colon. One is a paper clip. Pt has pain but no rectal bleeding and no suspicion of perf on X-ray. Plan: 1. NPO 2. Colonoscopy today for retrieval of foreign bodies. Pt agrees to undergo procedure. 3. Further recommendations after colonoscopy. Admission and Anticipated Discharge Date Admission Date: November 27, 2021 Supervising Physician Co-Signing Physician Notes Attending attestation I have seen, examined this patient, and agree with the findings and above by our mid-level provider JONA Ware, with the following additions: patient has had some sort of linear foreign body in what appears splenic flexure since 11/26. Did not drink any prep, or did not have any bowel movements today. Was planning on colonoscopy today given weekend. Having hallucinations, would give 4 L of golytely over the weekend. These foreign bodies should pass, and can evaluate need for colonoscopy on Thursday pending Xray on December 02. Subjective 21-year-old male, history of schizophrenia, ingested foreign bodies, underwent EGD with retrieval on 11/27/2021, KUB this morning showing retained foreign bodies in the colon, despite having gone through MiraLAX prep last evening, however, no BMs since prior to the prep. He is awake alert oriented, complains of severe, diffuse abdominal pain, worse in the LUQ. He is hemodynamically stable. Pt tells us F/Bs likely include a paper clip. Review of Systems Review of Systems: ROS: Gen: Denies weakness, fevers, weight loss Eyes: No eye redness, or pain, no recent vision changes Resp: No SOB, no cough Cardio: No palpitations/irregular beats, no chest pain GI: As per HPI, otherwise (-) : + ruiz cath in place for urine drainage Skin: No jaundice, itching or new rashes Physical Exam Constitutional: well developed and cooperative Eyes: PERRL, conjunctivae normal, anicteric sclerae ENMT: external ear and nose normal, oropharynx normal Neck: trachea midline, no thyromegaly Respiratory: normal respiratory effort, lungs clear to auscultation Cardiovascular: RRR, no murmur, no edema Gastrointestinal (Abdomen): Abdomen is soft, nondistended, very tender in the LUQ and diffusely tender through the entire abdomen. Skin: no rashes, warm and dry Neurologic: PERRL, EOMI, accommodation nl, no face palsy, no dysarthria awake; not confused Psychiatric: A+Ox3, euthymic affect Orientation: alert, oriented x 3 and cooperative Lymphatic: no cervical or axillary lymphadenopathy Results & Data ([facility]) Vital Signs (Past 12 Hours) Vital Signs Temp Pulse Resp BP Pulse Ox 11/29/21 08:32 36.4 C L 60 16 115/73 100 11/29/21 00:25 36.6 C 77 18 120/75 99 11/28/21 21:50 36.7 C 75 18 115/65 98 Laboratory Results No new labs today. Labs yesterday with hemoglobin 13 otherwise normal CBC and CMP. Diagnostic Findings KUB today: there is no evidence for a bowel obstruction. 4 metallic foreign bodies are again noted. Specifically, 2 round metallic foreign bodies are noted within the right colon. These are similar position to prior exam. There has been slight distal migration of a linear metallic ingested foreign body within the mid descending colon. An additional round metallic foreign body, possibly within the sigmoid colon is noted. There has been minimal progression.
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
--- NOTE | 2021-11-29 13:05 | Communication Note ---
Date of Service: November 29, 2021 Pt reports taking all 4 doses of Miralax last evening but no response to prep - no BMs today or yesterday. Due to poor/no prep, colonoscopy postponed to Thursday after another attempt at prep on Thursday. Please keep him on clear liquids only through the weekend. Please get a KUB on Thursday morning. If FB have cleared then no need for colonoscopy.
--- NOTE | 2021-11-29 13:28 | XRay Report ---
KUB HISTORY: Evaluate foreign bodies. ? Foreign Bodies COMPARISON: KUB 11/29/2021. FINDINGS: Curvilinear metallic foreign bodies again noted within the ascending colon. These are uncha nged in position. Additional round metallic foreign bodies again noted within the right colon and laney p pelvis. These are unchanged compared to the prior study. No renal calculi. No ureteral calculi. No pneumoperitoneum or pneumatosis. IMPRESSION: No significant change in position of the 4 ingested metallic foreign bodies. ACT 112: Negative or not required by law. Electronically signed by: Richard Aburto M.D. 11/29/2021 1:27 PM
[2021-11-29] MEDS: PARoxetine HCL 10 MG TAB PO SCH (20:33)
[2021-11-29] MEDS: MIRTAZAPINE TAB 15 MG TAB PO SCH (20:33)
[2021-11-29] MEDS: haloperidoL 5 MG TAB PO SCH (20:34)
[2021-11-30] MEDS: POLYETHYLENE (MIRALAX) 17 GM PACK PO SCH ×2 (08:32→21:50)
--- NOTE | 2021-11-30 10:45 | XRay Report ---
KUB HISTORY: Follow up study in a patient with foreign body ingestion Foreign body progression COMPARISON: KUB 11/29/2021 FINDINGS: Nonobstructive bowel gas pattern. There are 3 round radiodense foci of the abdomen measurin g up to 10 mm. 2 are present within the right midabdomen and one projects over the left hemipelvis. T he previously described metallic density linear structures are no longer present. Surgical suture mat erial within the abdominal left upper quadrant. No renal calculi. No ureteral calculi. No pneumoperi toneum or pneumatosis. No fracture. IMPRESSION: There are 3 persistent ingested metallic foreign bodies with the previously described curvilinear for eign body no longer present. ACT 112: Negative or not required by law. The above report was generated using voice recognition software. It may contain grammatical, syntax o r spelling errors. Electronically signed by: Bernardino Rome M.D. 11/30/2021 10:43 AM
[2021-11-30] MEDS: MoRPHine SULFATE 2 MG/ML CARP IV PRN ×3 (10:55→21:48)
[2021-11-30] MEDS ORDERED: POLYETHYLENE (MIRALAX) 17 GM PACK PO SCH (14:00)
[2021-11-30] MEDS: SENNOSIDES 8.8 MG/5 ML UDC PO SCH (14:50)
--- NOTE | 2021-11-30 18:23 | Hospitalist Progress Note ---
Date of Service November 30, 2021 Assessment & Plan (1) Foreign body ingestion: Plan: 21 year old from [facility] with PMH of schizophrenia and depression admitted for repeat ingestion of foreign body and insertion of foreign body into his urethra. Foreign body ingestion -d/c'd last week following EUS and ureteroscopy for foreign body ingestion and insertion into urethra. -11/27, GI removed several FB from the patient's esophagus, stomach and jejunum during EUS -Repeat KUB from 11/29/21: "Re-demonstration of 4 ingested metallic foreign bodies. Minimal distal migration of a few of these foreign bodies." -repeat KUB today showed 3/4 foreign bodies still present -Per GI: -colonoscopy postponed until at least Thursday, pending Thursday morning KUB. If FB passed by Thursday morning, no need for colonoscopy. -CLD all weekend and MiraLAX -Golytely prep starting Thursday and NPO after midnight on Thursday -increased MiraLAX to 2 bags tid + Sennoside this morning. Reduced to 1 bag TID after pt complained of abdominal pain. -Tylenol 650 mg PO PRN for abdominal pain Foreign body in urethra -11/27 cystoscopy with removal of foreign body, paperclip wrapped in plastic from urethra without significant damage to the urethra or bladder. -per urology: Hernandez catheter x5 days. currently on day 08/31. Schizophrenia -started haloperidol 2.5mg PO HS on 10/28. -Continue haloperidol 2.5mg PO HS for 3-5 days total and if tolerated well, increase dose to 5mg if necessary.Day 3 of tx tonight -IV Benadryl if he develops dystonia. Depression -Depression with suicidal ideations and continuous self-injuries behavior -Denies SI/HI currently but self-injurious behavior has been a recurrent problem for this patient. -Psych consult appreciated -Continue Mirtazapine -Continue Paroxetine (2) Schizophrenia: (3) Depression: (4) Foreign body in urethra: Admission and Anticipated Discharge Date Admission Date: November 29, 2021 Supervising Physician Co-Signing Physician Notes Resident Physician Supervision Note: I independently interviewed and examined the patient and verified the tirado history and physical, reviewed labs and image studies and agree with resident Dr. Marie findings and care plan. Subjective Pt is awake and handcuffed to the bed at both wrists. He reports periumbilical abdominal pain and dizziness. He denies hallucinations. Review of Systems Review of Systems: All systems reviewed & are unremarkable except as noted in HPI & below Physical Exam Physical Exam: General: Slighty drowsy-appearing young man who is in no acute distress. HEENT: Normocephalic, atraumatic. EOM intact. Good conjugate gaze. Nares patent. Moist mucosal membranes. Neck: Supple. No lymphadenopathy. Normal ROM. CV: Regular rate and rhythm. Normal S1 and S2. No murmurs gallops or rubs. No pedal edema. Respiratory: Normal respiratory effort. Lungs clear to auscultation bilaterally. No crackles, rhonchi, or wheezes. Abdomen: Soft, nondistended abdomen. No bruits heard on auscultation. Reported tenderness to mild palpation. No guarding or rebound. Extremities: Normal tone and ROM. Strength and sensation intact. Capillary refill <2 sec. 2+ dp equal bilaterally. Neuro: Alert and oriented x3. Skin: Intact, without rashes, lesions, or erythema. Results & Data Results & Data ([facility]) Vital Signs (Past 12 Hours) Vital Signs Temp Pulse Resp BP Pulse Ox 11/30/21 14:51 36.4 C L 76 16 114/68 100 11/30/21 08:32 36.7 C 82 16 123/78 98 Resident Activity Tracking Resident Involvement: Resident Care Provided Care Provided: Adult Hospital Medicine (1) Depression Depression Type: unspecified Qualified Code(s): F32.A - Depression, unspecified (2) Foreign body in urethra Encounter type: initial encounter Qualified Code(s): T19.0XXA - Foreign body in urethra, initial encounter (3) Foreign body ingestion Encounter type: initial encounter Qualified Code(s): T18.9XXA - Foreign body of alimentary tract, part unspecified, initial encounter
[2021-11-30] MEDS ORDERED: MoRPHine SULFATE 2 MG/ML CARP IV STA (21:34)
[2021-11-30] MEDS: PARoxetine HCL 10 MG TAB PO SCH (21:50)
[2021-11-30] MEDS: haloperidoL 5 MG TAB PO SCH (21:50)
[2021-11-30] MEDS: MIRTAZAPINE TAB 15 MG TAB PO SCH (21:51)
[2021-12-01] MEDS ORDERED: LAVAGE SOLUTION 4000ML PO SCH (08:00)
[2021-12-01] MEDS: SENNOSIDES 8.8 MG/5 ML UDC PO SCH (08:03)
[2021-12-01] MEDS: POLYETHYLENE (MIRALAX) 17 GM PACK PO SCH (08:03)
--- NOTE | 2021-12-01 08:45 | Hospitalist Progress Note ---
Date of Service December 01, 2021 Assessment & Plan (1) Foreign body ingestion: Plan: 21 year old from [facility] with PMH of schizophrenia and depression admitted for repeat ingestion of foreign body and insertion of foreign body into his urethra. Foreign body ingestion -d/c'd last week following EUS and ureteroscopy for foreign body ingestion and insertion into urethra. -11/27, GI removed several FB from the patient's esophagus, stomach and jejunum during EUS -Repeat KUB from 11/29/21: "Re-demonstration of 4 ingested metallic foreign bodies. Minimal distal migration of a few of these foreign bodies." -repeat KUB today showed 3/4 foreign bodies still present -Per GI: colonoscopy postponed until at least Thursday, pending Thursday morning KUB. If FB passed by Thursday, no need for colonoscopy. -CLD all weekend and MiraLAX -Golytely prep starting Thursday and NPO after midnight on Thursday -Completed 4 L GoLytely prep. -Tylenol 1000 mg scheduled every 8 hours for abdominal pain. Added ibuprofen 800 mg every 8hours as needed for abdominal pain not controlled by Tylenol. -N.p.o. at midnight. KUB ordered for Thursday. Foreign body in urethra -11/27 cystoscopy with removal of foreign body, paperclip wrapped in plastic from urethra without significant damage to the urethra or bladder. -per urology: Hernandez catheter x5 days. currently on day 10/01. Schizophrenia -started haloperidol 2.5mg PO HS on 10/28. -Patient continues to deny auditory hallucinations. -Increased Haldol dose to 5 mg p.o. at bedtime (previously completed 3 days 2.5 mg). -As needed Benadryl for dystonia. Depression -Depression with suicidal ideations and continuous self-injuries behavior -Denies SI/HI currently but self-injurious behavior has been a recurrent problem for this patient. -Psych consult appreciated -Continue Mirtazapine -Continue Paroxetine (2) Schizophrenia: (3) Depression: (4) Foreign body in urethra: Admission and Anticipated Discharge Date Admission Date: November 29, 2021 Supervising Physician Co-Signing Physician Notes Resident Physician Supervision Note: I independently interviewed and examined the patient and verified the tirado history and physical, reviewed labs and image studies and agree with resident Dr. Marie findings and care plan. Subjective Patient asleep in bed, restrained at wrists and ankles via handcuffs. Patient reports improved abdominal pain. He denies nausea or vomiting. He denies auditory hallucinations. Review of Systems Review of Systems: All systems reviewed & are unremarkable except as noted in HPI & below Physical Exam Physical Exam: General: Well-appearing young man in no acute distress. HEENT: Normocephalic, atraumatic. EOM intact. Good conjugate gaze. Nares patent. Moist mucosal membranes. Neck: Supple. No lymphadenopathy. Normal ROM. CV: Regular rate and rhythm. Normal S1 and S2. No murmurs gallops or rubs. No pedal edema. Respiratory: Normal respiratory effort. Lungs clear to auscultation bilaterally. No crackles, rhonchi, or wheezes. Abdomen: Soft, nondistended abdomen. No bruits heard on auscultation. No tenderness to deep palpation. No guarding or rebound. Extremities: Normal tone. Limited ROM due to restraints. Capillary refill <2 sec. 2+ dp equal bilaterally. Neuro: Alert and oriented x3. Skin: Intact, without rashes, lesions, or erythema. Results & Data Results & Data ([facility]) Vital Signs (Past 12 Hours) Vital Signs Temp Pulse Resp BP Pulse Ox 12/01/21 08:05 36.4 C L 56 L 16 131/90 100 11/30/21 22:25 36.6 C 75 18 120/70 100 Resident Activity Tracking Resident Involvement: Resident Care Provided Care Provided: Adult Hospital Medicine (1) Depression Depression Type: unspecified Qualified Code(s): F32.A - Depression, unspecified (2) Foreign body in urethra Encounter type: initial encounter Qualified Code(s): T19.0XXA - Foreign body in urethra, initial encounter (3) Foreign body ingestion Encounter type: initial encounter Qualified Code(s): T18.9XXA - Foreign body of alimentary tract, part unspecified, initial encounter
[2021-12-01] MEDS: ACETAMINOPHEN 325 MG TAB PO PRN (09:52)
[2021-12-01] MEDS ORDERED: IBUPROFEN 800 MG TAB PO PRN (16:28)
[2021-12-01] MEDS: ACETAMINOPHEN 500 MG TAB PO SCH (17:17)
[2021-12-01] MEDS: PARoxetine HCL 10 MG TAB PO SCH (19:42)
[2021-12-01] MEDS: MIRTAZAPINE TAB 15 MG TAB PO SCH (19:42)
[2021-12-01] MEDS ORDERED: haloperidoL 5 MG TAB PO SCH (21:00)
[2021-12-02] MEDS: ACETAMINOPHEN 500 MG TAB PO SCH ×2 (00:02→09:34)
--- NOTE | 2021-12-02 08:45 | XRay Report ---
XR KUB/Abdomen 1 view CLINICAL HISTORY: foreign object ingestion TECHNIQUE: 1 view of the abdomen was obtained. Comparison: Comparison is made to abdomen radiographs 11/30/2021 and 11/29/2021 FINDINGS: 2 rounded radiodensities are noted in the right upper quadrant, possibly at the hepatic flexure. Line ar radiodensities are seen overlying the right upper quadrant and left upper quadrant, new from prior exam. The osseous structures are grossly unremarkable. The bowel gas pattern is nonobstructive. A mo derate amount of stool is noted within the large bowel. IMPRESSION: 2 rounded radiodensities are seen in the right upper quadrant, possibly in the hepatic flexure. Curvi linear radiodensities are noted, one in the left upper quadrant and one in the right upper quadrant, similar to appearance on exam of 11/29/2021. ACT 112: Negative or not required by law. Electronically signed by: Shlomo Rose M.D. 12/02/2021 8:43 AM
[2021-12-02] MEDS: SENNOSIDES 8.8 MG/5 ML UDC PO SCH (09:34)
[2021-12-02] MEDS: ACETAMINOPHEN 1,000 MG/100 ML VIAL IV PRN ×2 (11:14→20:14)
--- NOTE | 2021-12-02 12:27 | Communication Note ---
Date of Service: December 02, 2021 Chart reviewed. 21-year-old male, history of schizophrenia, ingested foreign bodies, underwent EGD with retrieval on 11/27/2021. KUB today w/ persisting foreign bodies in the colon. A moderate amt of stool is seen. Over the weekend pt took 1/2 prep with GoLytely yesterday; though only had 2 liquid stools documented. Pt told GI team last week F/Bs likely include a paper clip. Recommendations: - No plan for colonoscopy today - Please administer 1/2 a Golytely prep today to help clear the remaining FB from the colon - Hospitalist planning repeat KUB for tomorrow Thank you for allowing us to participate in the care of this patient. Please call with any acute changes, questions or concerns. Please see addendum below with additional recommendation from my supervising physician.
[2021-12-02] MEDS ORDERED: LAVAGE SOLUTION 4000ML PO ONE (13:30)
--- NOTE | 2021-12-02 17:01 | Hospitalist Progress Note ---
Date of Service December 02, 2021 Assessment & Plan (1) Foreign body ingestion: Plan: 21 year old from [facility] with PMH of schizophrenia and depression admitted for repeat ingestion of foreign body and insertion of foreign body into his urethra. Foreign body ingestion -d/c'd last week following EUS and ureteroscopy for foreign body ingestion and insertion into urethra. -11/27, GI removed several FB from the patient's esophagus, stomach and jejunum during EUS -repeat KUB today showed 3/4 foreign bodies still present, minimal progression -Per GI: no colonoscopy today, added 06/30 golyetly prep and miralax today to encourage FB to pass, repeat KUB tomorrow AM. Clear liquid diet and MiraLAX -Tylenol 1000 mg scheduled every 8 hours for abdominal pain. On 12/01 added ibuprofen 800 mg every 8hours as needed for abdominal pain not controlled by T ylenol. Foreign body in urethra -11/27 cystoscopy with removal of foreign body, paperclip wrapped in plastic from urethra without significant damage to the urethra or bladder. -per urology: Ruiz catheter x5 days. Finished day 5 today, catheter removed. Monitor for voiding and pain post removal Schizophrenia -started haloperidol 2.5mg PO HS on 10/28. After 3 days, increased to 5mg on 12/01, increased to 7.5mg PO HS tonight. -Patient continues to deny auditory hallucinations. Feels it has decreased anxiety and mood fluctuations a little. Agreeable to increasing dose to 7.5mg. -Denies feeling suicidal currently, still has urges to self harm -As needed Benadryl for dystonia. Depression -Depression with history of suicidal ideations and continuous self-injuries behavior -Denies SI/HI currently but self-injurious behavior has been a recurrent problem for this patient -Continue Mirtazapine -Continue Paroxetine (2) Schizophrenia: (3) Depression: (4) Foreign body in urethra: Admission and Anticipated Discharge Date Admission Date: November 29, 2021 Supervising Physician Co-Signing Physician Notes I personally examined the patient and verified all tirado points of history and exam, discussed case, and agree with decision making with Alana Eng MS4 feeling OK not much abdominal discomfort vitals noted nad heent nc at mmm breathing unlabored no accessory muscles good effort abd soft nd nt no guarding/rebound/no masses no organomegaly FB ingestion - per GI will continue expectant management. no surgical abdomen at this time. serial exams, serial Xrays urethral FB - removed by urology. ok to remove ruiz today otherwise as above Subjective Patient is doing well this morning other than 7/10 pain still in his left upper abdomen. He denies suicidal ideation but still has anxiety and mood fluctuations as well as self harm urges. He feels like the the haloperidol has helped slightly but still has distressing feelings. Denies dystonia or other abnormal involuntary movements. Denies swallowing additional objects since admission. Review of Systems Constitutional: no fever or chills Respiratory: no cough or SOB Cardiovascular: Additional Comments: no chest pain or palpitations Gastrointestinal: abdominal pain in upper left quadrant Musculoskeletal: no abnormal movements or muscle stiffness Psychiatric: no auditory hallucinations Physical Exam Constitutional: laying comfortably in bed, no acute distress. 3 guards in room, 2 point restraints. No buttons missing from hospital gown. Respiratory: normal respiratory effort, clear to auscultation bilaterally Cardiovascular: RRR no MRG appreciated, no LE edema Gastrointestinal (Abdomen): pain to palpation in upper left quadrant. No pain to palpation in other quadrants. No guarding or acute abdomen Neurologic: A&Ox3 Psychiatric: not internally preoccupied. No suicidal ideation, does endorse urges to self harm. Not agitated. No dystionia Genitourinary: no CVA tenderness, no hematuria Results & Data Results & Data ([facility]) Vital Signs (Past 12 Hours) Vital Signs Temp Pulse Resp BP BP Pulse Ox 12/02/21 15:39 36.7 C 80 16 115/68 98 12/02/21 11:49 36.4 C L 65 16 119/74 108/83 100 12/02/21 07:27 36.4 C L 65 16 119/74 100 (1) Depression Depression Type: unspecified Qualified Code(s): F32.A - Depression, unspecified (2) Foreign body in urethra Encounter type: initial encounter Qualified Code(s): T19.0XXA - Foreign body in urethra, initial encounter (3) Foreign body ingestion Encounter type: initial encounter Qualified Code(s): T18.9XXA - Foreign body of alimentary tract, part unspecified, initial encounter
--- NOTE | 2021-12-02 17:10 | Billing Data ---
Date of Service December 02, 2021 Coding Level of Care Code 60890 Subseq Hosp Care Lvl 3
[2021-12-02] MEDS: MIRTAZAPINE TAB 15 MG TAB PO SCH (20:17)
[2021-12-02] MEDS: PARoxetine HCL 10 MG TAB PO SCH (20:17)
[2021-12-02] MEDS: haloperidoL 5 MG TAB PO SCH (20:19)
--- NOTE | 2021-12-03 09:44 | XRay Report ---
XR KUB/Abdomen 1 view CLINICAL HISTORY: foreign body TECHNIQUE: 1 view of the abdomen was obtained. Comparison: Comparison is made to abdomen radiographs 12/02/2021 FINDINGS: Redemonstration of 2 rounded and tubular curvilinear radiodensities. One curvilinear density appears to project over the sigmoid colon, the remainder of the radiodensities are in the left upper quadrant projecting over the hepatic flexure. The osseous structures are grossly unremarkable. The bowel gas pattern is nonobstructive. A moderate amount of stool is noted within the large bowel. IMPRESSION: Minimal progression of 2 rounded and tubular curvilinear radiodensities as above. ACT 112: Negative or not required by law. Electronically signed by: Shlomo Rose M.D. 12/03/2021 9:43 AM
[2021-12-03] MEDS ORDERED: LAVAGE SOLUTION 4000ML PO SCH (10:05)
[2021-12-03] MEDS: SENNA 8.6 MG TAB PO SCH (10:08)
--- NOTE | 2021-12-03 10:09 | Communication Note ---
Date of Service: December 03, 2021 Chart reviewed. 21-year-old male, history of schizophrenia, ingested foreign bodies, underwent EGD with retrieval on 11/27/2021. Took 1/2 prep of Golytely yesterday; had several loose stools per nursing. KUB today w/ slight advancement of one of the FB to the sigmoid, but the others remain around the hepatic flexure. A moderate amt of stool is seen. Pt told GI team last week F/Bs likely include a paper clip. Recommendations: - No plan for colonoscopy today - Please administer a full Golytely prep today to help clear the remaining FB from the colon; order sent to the pharmacy - Please monitor and document stool output - Check repeat KUB tomorrow Thank you for allowing us to participate in the care of this patient. Please call with any acute changes, questions or concerns. Please see addendum below with additional recommendation from my supervising physician.
--- NOTE | 2021-12-03 12:42 | Hospitalist Progress Note ---
Date of Service December 03, 2021 Assessment & Plan (1) Foreign body ingestion: Plan: 21 year old from [facility] with PMH of schizophrenia and depression admitted for repeat ingestion of foreign body and insertion of foreign body into his urethra. Foreign body ingestion -d/c'd last week following EUS and ureteroscopy for foreign body ingestion and insertion into urethra. -11/27, GI removed several FB from the patient's esophagus, stomach and jejunum during EUS -repeat KUB today showed 3/4 foreign bodies still present, minimal progression -Per GI: no colonoscopy today, full golyetly prep today to encourage FB to pass, repeat KUB tomorrow AM. Clear liquid diet -patient refused to drink more than 800mL of 4000mL of prep today, has had 2- 3 liquid BMs today -Tylenol 1000 mg scheduled every 8 hours for abdominal pain. On 12/01 added ibuprofen 800 mg every 8hours as needed for abdominal pain not controlled by Tylenol. -Passed wire metal object around 4:30pm today along with bright red blood and increased pain - repeat urgent upright KUB to check for perforation and CBC, BMP to check electrolytes due to 3 days of bowel prep - pending - CBC stable Foreign body in urethra -11/27 cystoscopy with removal of foreign body, paperclip wrapped in plastic from urethra without significant damage to the urethra or bladder. -Doing well post ruiz removal on 12/02, able to urinate without issue or pain Schizophrenia -started haloperidol 2.5mg PO HS on 10/28. Increased to 5mg on 12/01, 7.5mg on 12/02. Continue 7.5mg today. -Patient continues to deny auditory hallucinations. Feels it has decreased anxiety and mood fluctuations a little. -Denies feeling suicidal currently, still has urges to self harm -As needed Benadryl for dystonia. Depression -Depression with history of suicidal ideations and continuous self-injuries behavior -Denies SI/HI currently but self-injurious behavior has been a recurrent problem for this patient -Continue Mirtazapine -Continue Paroxetine (2) Schizophrenia: (3) Depression: (4) Foreign body in urethra: Admission and Anticipated Discharge Date Admission Date: November 29, 2021 Supervising Physician Co-Signing Physician Notes I personally examined the patient and verified all tirado points of history and exam, discussed case, and agree with decision making with Alana Eng MS4 bloating discomfort from bowel prep no other new complaints when i see him - later passed a piece of metal in stool and had rectal bleeding, reassessed by MS4 and R1, repeat KUB done showing persistent position of several of the foreign bodies vitals noted nad heent nc at mmm breathing unlabored no accessory muscles good effort abd soft nd nt no guarding/rebound/no masses no organomegaly FB ingestion - most FB not progressing with expectant management and 3 days of bowel prep, anticipate endoscopy in near future (unless marked progress overnight) urethral FB - removed by urology. ruiz out schizophrenia - symptomatically doing better w haldol - continue otherwise as above Subjective Patient is feeling better today with abdominal pain at 5-6/10. He had 3 liquid bowel movements yesterday and has not noticed any FB in his stools. He feels like the haloperidol has helped with anxiety and mood fluctuations and "made me feel more mellow like I should be". He denies dystonia or abnormal movements. This afternoon ~4:30/45pm he passed one metal wire FB in his stool and reported he had more bright red blood than he has experienced in the past. Nurse confirmed this and noted that the object looked like a metal wire off of a wire brush that was bent in half and twisted. He reported increased pain in his rectum, lower left abdomen, and pain going up to his neck. Per nursing, he has refused most of his bowel prep today, taking less than 800mL out of total 4000mL. Review of Systems Constitutional: no fever or chills Respiratory: no cough or SOB Cardiovascular: Additional Comments: no chest pain or palpitations Gastrointestinal: abdominal pain in upper left quadrant 5-6/10, 3 liquid bowel movements yesterday Musculoskeletal: no abnormal movements or muscle stiffness Psychiatric: no auditory hallucinations Physical Exam Constitutional: laying comfortably in bed in no acute distress, 2 point restraints, 3 guards in the room Respiratory: normal respiratory effort, clear to auscultation bilaterally Cardiovascular: RRR no MRG Gastrointestinal (Abdomen): This morning: pain to palpation in left upper quadrant, no guarding or acute abdomen This afternoon: pain to palpation bilaterally, no guarding. No blood on glove during rectal exam, no apparent lacerations or tears Neurologic: A&Ox3 No dystonia or abnormal movements Psychiatric: not internally preoccupied, endorses less anxiety Results & Data Results & Data ([facility]) Vital Signs (Past 12 Hours) Vital Signs Temp Pulse Resp BP Pulse Ox 12/03/21 07:45 36.4 C L 61 14 115/75 100 12/03/21 03:48 36.5 C 66 16 106/69 99 (1) Depression Depression Type: unspecified Qualified Code(s): F32.A - Depression, unspecified (2) Foreign body in urethra Encounter type: initial encounter Qualified Code(s): T19.0XXA - Foreign body in urethra, initial encounter (3) Foreign body ingestion Encounter type: initial encounter Qualified Code(s): T18.9XXA - Foreign body of alimentary tract, part unspecified, initial encounter
[2021-12-03 17:34] LABS: Basophils # (auto) 0.01 K/uL (0-0.2); Basophils % (auto) 0.2 %; Eosinophils # (auto) 0.11 K/uL (0-0.5); Eosinophils % (auto) 1.9 %; Hematocrit (blood only) 41.6 % (42-52); Hemoglobin 13.4 g/dL (14.0-18.0); Lymphocytes # (auto) 1.52 K/uL (1.2-3.4); Lymphocytes % (auto) 26.3 %; Mean Corpuscular Hemoglobin 23.9 pg (25-34); Mean Corpuscular Hgb Conc 32.2 g/dL (32-36); Mean Corpuscular Volume 74.2 fL (80-100); Mean Platelet Volume 9.7 fL (7.4-10.4); Monocytes # (auto) 0.39 K/uL (0.11-0.59); Monocytes % (auto) 6.8 %; Neutrophils # (auto) 3.74 K/uL (1.4-6.5); Neutrophils % (auto) 64.8 %; Platelet Count 259 K/uL (130-400); RDW Coefficient of Variation 13.6 % (11.5-14.5); RDW Standard Deviation 36.6 fL (36.4-46.3); Red Blood Count 5.61 M/uL (4.7-6.1); White Blood Count 5.77 K/uL (4.8-10.8)
[2021-12-03 17:52] LABS: Ovalocytes 1+
[2021-12-03 18:07] LABS: BUN Creatinine Ratio 9.3 (10-20); Calcium 9.5 mg/dl (8.5-10.1); Creatinine Clr Calc Pharmacy 102.2 ml/min; Est GFR (African American) 101.6 ml/min; Est GFR (Non-African American) 87.7 ml/min; Potassium 3.8 mmol/L (3.5-5.1)
--- NOTE | 2021-12-03 18:15 | XRay Report ---
KUB HISTORY: Acute foreign body ingestion Foreign body bloody stool COMPARISON: KUB of same day at 9:21 AM FINDINGS: Air-fluid levels are noted within the right hemicolon.r a few mildly dilated small bowel lo ops are noted measuring up to approximately 3.2 cm. 4 radiopaque foreign bodies are redemonstrated, 2 of which are rounded into our linear projected over the right lower quadrant abdomen. On the prior s tudy, one of the linear foci was present within the left midabdomen. No renal calculi. No ureteral c alculi. No pneumoperitoneum or pneumatosis. No fracture. IMPRESSION: 1. 4 persistent metallic density ingested foreign bodies, now projecting over the abdominal right low er quadrant. 2. Air-fluid levels of the right hemicolon with a few mildly dilated loops of small bowel. Attention at follow-up recommended to exclude ileus versus partial obstruction. 3. No pneumoperitoneum. ACT 112: Negative or not required by law. The above report was generated using voice recognition software. It may contain grammatical, syntax o r spelling errors. Electronically signed by: Bernardino Rome M.D. 12/03/2021 6:12 PM
--- NOTE | 2021-12-03 18:41 | Billing Data ---
Date of Service December 03, 2021 Coding Level of Care Code 61056 Subseq Hosp Care Lvl 3
[2021-12-03] MEDS: PARoxetine HCL 10 MG TAB PO SCH (20:15)
[2021-12-03] MEDS: MIRTAZAPINE TAB 15 MG TAB PO SCH (20:16)
[2021-12-03] MEDS: haloperidoL 5 MG TAB PO SCH (20:16)
[2021-12-04 06:32] LABS: Basophils # (auto) 0.02 K/uL (0-0.2); Basophils % (auto) 0.2 %; Eosinophils # (auto) 0.19 K/uL (0-0.5); Eosinophils % (auto) 2.2 %; Hematocrit (blood only) 43.3 % (42-52); Hemoglobin 13.7 g/dL (14.0-18.0); Immature Granulocytes # (auto) 0.03 K/uL (0.00-0.02); Immature Granulocytes % (auto) 0.3 %; Lymphocytes # (auto) 2.09 K/uL (1.2-3.4); Lymphocytes % (auto) 24.1 %; Mean Corpuscular Hemoglobin 23.5 pg (25-34); Mean Corpuscular Hgb Conc 31.6 g/dL (32-36); Mean Corpuscular Volume 74.3 fL (80-100); Mean Platelet Volume 10.5 fL (7.4-10.4); Monocytes # (auto) 0.69 K/uL (0.11-0.59); Neutrophils # (auto) 5.64 K/uL (1.4-6.5); Neutrophils % (auto) 65.2 %; Platelet Count 242 K/uL (130-400); RDW Coefficient of Variation 13.7 % (11.5-14.5); RDW Standard Deviation 36.8 fL (36.4-46.3); Red Blood Count 5.83 M/uL (4.7-6.1); White Blood Count 8.66 K/uL (4.8-10.8)
[2021-12-04 06:53] LABS: BUN Creatinine Ratio 7.8 (10-20); Calcium 9.5 mg/dl (8.5-10.1); Creatinine Clr Calc Pharmacy 94.3 ml/min; Est GFR (African American) 92.1 ml/min; Est GFR (Non-African American) 79.5 ml/min; Potassium 3.8 mmol/L (3.5-5.1)
[2021-12-04 06:59] LABS: Ovalocytes 1+
[2021-12-04] MEDS: SENNA 8.6 MG TAB PO SCH (08:27)
--- NOTE | 2021-12-04 09:40 | XRay Report ---
KUB HISTORY: Follow up study in a patient with foreign body ingestion Foreign objects progression COMPARISON: KUB 12/03/2021 FINDINGS: Nonobstructive bowel gas pattern. 4. Metallic density foreign bodies of the abdomen persist. The 2 rounded foci are noted in the expect ed location of the ascending and proximal transverse colon. The 2 linear foci project over the spleni c flexure. Surgical suture material of the abdominal left upper quadrant. No renal calculi. No ureter al calculi. No pneumoperitoneum or pneumatosis. No fracture. IMPRESSION: 1. There are persistent ingested metallic density foreign bodies present, now likely within the ascen ding and transverse colon. 2. Nonobstructive bowel gas pattern without pneumoperitoneum identified. ACT 112: Negative or not required by law. The above report was generated using voice recognition software. It may contain grammatical, syntax o r spelling errors. Electronically signed by: Bernardino Rome M.D. 12/04/2021 9:39 AM
--- NOTE | 2021-12-04 10:54 | Communication Note ---
Date of Service: December 04, 2021 Chart reviewed. 21-year-old male, history of schizophrenia, ingested foreign bodies, underwent EGD with retrieval on 11/27/2021. Has had several 1/2 to full bowel preps since arrival; has had several loose stools; reporetedly yesterday passed some sort of metal object. Repeat KUB today w/ persisting foreign bodies in the colon, 2 on the right, 2 on the left. Pt told GI team last week F/Bs likely include a paper clip. Recommendations: - Will plan for colonoscopy today - NPO - Please give tap water enema x 1 to help clear the colon - Please monitor and document stool output Thank you for allowing us to participate in the care of this patient. Please call with any acute changes, questions or concerns. Please see addendum below with additional recommendation from my supervising physician.
--- NOTE | 2021-12-04 11:14 | Hospitalist Progress Note ---
Date of Service December 04, 2021 Assessment & Plan (1) Foreign body ingestion: Plan: 21 year old from [facility] with PMH of schizophrenia and depression admitted for repeat ingestion of foreign body and insertion of foreign body into his urethra. Foreign body ingestion -d/c'd last week following EUS and ureteroscopy for foreign body ingestion and insertion into urethra. -11/27, GI removed several FB from the patient's esophagus, stomach and jejunum during EUS -Tylenol 1000 mg scheduled every 8 hours for abdominal pain. On 12/01 added ibuprofen 800 mg every 8hours as needed for abdominal pain not controlled by Tylenol. -Passed wire metal object around 4:30pm on 12/03 along with bright red blood and increased pain - No evidence of perforation or free air on urgent upright KUB on 12/03 afternoon - CBC, BMP stable - had 1 non-bloody stool after passing FB yesterday -repeat KUB today showed 3/4 foreign bodies still present, 2 metal buttons in ascending colon with minimal progression, metal wire in transverse colon, no evidence of free air or perforation -Per GI: colonoscopy today for FB retrieval, NPO Foreign body in urethra -11/27 cystoscopy with removal of foreign body, paperclip wrapped in plastic from urethra without significant damage to the urethra or bladder. -Doing well post ruiz removal on 12/02, able to urinate without issue or pain Schizophrenia -started haloperidol 2.5mg PO HS on 10/28. Increased to 5mg on 12/01, 7.5mg on 12/02. Continue 7.5mg today. -Patient continues to deny auditory hallucinations. Feels it has decreased anxiety and mood fluctuations a little -Feeling less tempted to ingest FB again once discharged to [facility] -Denies feeling suicidal currently, still has urges to self harm -As needed Benadryl for dystonia. Depression -Depression with history of suicidal ideations and continuous self-injuries behavior -Denies SI/HI currently but self-injurious behavior has been a recurrent problem for this patient -Continue Mirtazapine -Continue Paroxetine (2) Schizophrenia: (3) Depression: (4) Foreign body in urethra: Admission and Anticipated Discharge Date Admission Date: November 29, 2021 Subjective Patient is having less pain this morning compared to yesterday after passing one FB. He now has 6/10 pain in his left middle abdomen, not extending to his neck and no pain in the rectum. He had one bowel movement since passing the FB without blood. When asked about how likely he would be to ingest another FB on discharge to custodial in the future he states that he feels less sure about ingesting more FB, feeling more confident in ignoring self harm urges, and feels more "mellow" and less anxious since starting the haloperidol. Review of Systems Constitutional: no fever or chills Respiratory: no cough or SOB Cardiovascular: Additional Comments: no chest pain or palpitations Gastrointestinal: 6/10 pain in left middle abdomen. Liquid BMs without blood Genitourinary: no dysuria or no difficulty urinating Psychiatric: denies hallucinations Physical Exam Constitutional: laying comfortably in bed, no acute distress. 2 point restraints, all metal buttons on hospital gown in place, 3 guards in room Respiratory: normal respiratory effort, clear to auscultation bilaterally Cardiovascular: RRR no MRG Gastrointestinal (Abdomen): pain to palpation diffusely on left side of abdomen, no guarding or acute abdomen Neurologic: A&Ox3 Psychiatric: not internally preoccupied, denies SI/HI Genitourinary: no CVA tenderness Results & Data Results & Data ([facility]) Vital Signs (Past 12 Hours) Vital Signs Temp Pulse Resp BP Pulse Ox 12/04/21 07:31 36.7 C 72 14 110/71 99 12/03/21 23:03 36.6 C 60 16 113/77 98 (1) Foreign body ingestion Encounter type: initial encounter Qualified Code(s): T18.9XXA - Foreign body of alimentary tract, part unspecified, initial encounter (2) Depression Depression Type: unspecified Qualified Code(s): F32.A - Depression, unspecified (3) Foreign body in urethra Encounter type: initial encounter Qualified Code(s): T19.0XXA - Foreign body in urethra, initial encounter
[2021-12-04] MEDS ORDERED: PROPOFOL IV EMULSION 10 MG/ML 20 ML VIAL IV ONE (11:41)
[2021-12-04] MEDS ORDERED: GLUCAGON FOR INJ 1 MG VIAL ONE (11:43)
--- NOTE | 2021-12-04 12:12 | History & Physical Report ---
Date of Service December 04, 2021 Assessment & Plan Admission and Anticipated Discharge Date Admission Date: November 29, 2021 History of Present Illness Primary Care Provider: DA Mccain Foreign body CV: RRR ABd: soft A/P: Cscopy for foreign body removal Allergies Allergy/AdvReac Type Severity Reaction Status Date / Time No Known Allergies Allergy Unverified 11/27/21 16:05 Home Medications Medication Instructions Recorded Confirmed Type paroxetine HCl 30 mg tablet 30 mg PO HS 12/02/20 11/27/21 History mirtazapine 30 mg tablet 30 mg PO HS 11/21/21 11/27/21 History Past Med/Surg History Medical History Anxiety Depression H/O swallowed foreign body Schizophrenia Surgical History H/O esophagogastroduodenoscopy Social History Smoking Status: Former smoker Tobacco Type: Cigarettes Second Hand Exposure: Yes; Do You Dip or Chew Tobacco: No; Tobacco Cessation Education Requested by Patient: No Hx Alcohol Use: No Hx Substance Use: No Preferred Language: Turkish [employer] Admin Required: No Beliefs That Will Affect Care: None Current Living Situation: Other Current Living Situation Comment: Incarcerated at [facility] Other Information That Helps Us Care for You: No Feels Safe at Home: Yes Assistive Devices: None Results & Data Results & Data ([facility]) Vital Signs (Past 12 Hours) Vital Signs Temp Pulse Resp BP Pulse Ox 12/04/21 12:04 85 18 136/81 99 12/04/21 07:31 36.7 C 72 14 110/71 99 Code Status & VTE Plan VTE Prophylaxis Plan VTE Prophylaxis will be ordered: Yes
--- NOTE | 2021-12-04 12:47 | GI REPORT ---
Patient Name: Stefan Simon Procedure Date: 12/04/2021 11:53 AM Date of : 2000 Admit Type: Inpatient Age: 21 Gender: Male Attending MD: Lisa Murray MD Procedure: Colonoscopy Providers: Lisa Murray MD Referring MD: Tigre Das Indications: Foreign body in the colon Medicines: See the Anesthesia note for documentation of the administered medications Complications: No immediate complications. Estimated Blood Loss: Estimated blood loss: none. Procedure: Pre-Anesthesia Assessment: - ASA Grade Assessment: III - A patient with severe systemic disease. After I obtained informed consent, the scope was passed under direct vision. Throughout the procedure, the patient's blood pressure, pulse, and oxygen saturations were monitored continuously. The Scope was introduced through the anus and advanced to 35 cm into the ileum. The colonoscopy was performed without difficulty. The patient tolerated the procedure well. There was a moderate amount of stool in the colon. Findings: There was a button in the descending colon that was removed with a net. There was a linear metal object, likely a staple, at the recto sigmoid junction that was removed with a net. There was a shallow ulcer at the rectosigmoid colon, likely related to foreign body ingestion. Impression: Foreign bodies removed. Recommendation: - [facility]charge patient to [facility]. - Resume clears, diet as tolerated. Lisa Murray M.D. Lisa Murray MD 12/04/2021 12:46:54 PM This report has been signed electronically. Note Initiated On: 12/04/2021 11:53 AM Number of Addenda: 0 I attest to the content of the Intraoperative Record and orders documented therein, exceptions below {[id number]}
--- NOTE | 2021-12-04 13:29 | Anesthesiology Progress Note ---
Date of Service December 04, 2021 Anesthesia Post Procedure Vital Signs Vital Signs: Temp Pulse Resp BP Pulse Ox 12/04/21 13:12 37.0 C 86 16 113/71 100 12/04/21 13:05 76 16 120/74 99 12/04/21 12:50 88 16 112/66 99 12/04/21 12:35 86 14 104/56 L 100 12/04/21 12:04 85 18 136/81 99 12/04/21 12:00 37.4 C 12/04/21 07:31 36.7 C 72 14 110/71 99 12/03/21 23:03 36.6 C 60 16 113/77 98 12/03/21 15:42 36.8 C 71 18 120/75 99 Pain Intensity Abdomen: Pain Intensity: 6 Transfer of Care Handoff Completed per policy Notes Mental Status: alert / awake / arousable and participated in evaluation Patient Amnestic to Procedure: Yes Nausea / Vomiting: adequately controlled Pain: adequately controlled Airway Patency, RR, SpO2: stable & adequate BP & HR: stable & adequate Hydration State: stable & adequate Anesthetic Complications: no major complications apparent and Pt Satisfied with anesthetic care
--- NOTE | 2021-12-04 13:32 | Discharge Summary ---
Date of Service December 04, 2021 Admission HPI Per Admitting Provider Stefan Simon is a 21yo male with PMHx significant for depression and self- injurious behavior presented from [facility] 11/27/21 following discharge on 11/26/21 from [facility] for similar episode. Reportedly the patent states he swallowed some metal swallowed it with strings attached, and again placed a piece of plastic with metallic wrapper up his urethra. He was evaluated in the EMD had CT scan of his chest and abdomen/pelvis performed. Urology and Gastroenterology have been consulted. Patient will be admitted to medical floor following evaluation of the above. NPO. He is accompanied by his gaurds, who report that he is in a special holding cell and is evaluated by their special psychiatric team. Patient reports he does this because of "of suicidal thoughts and its a psychiatric thing". 11/21 after intentionally ingesting a sharp plastic object as well as intentionally shoving a plastic object up his urethra earlier in the day. Patient has done this several times before since being in [facility] - reports that he gets depressed and wants to hurt himself but does not have a plan to kill himself. He was admitted following this as well as had EGD performed with retrieval of some plastic and blue coth removed, as well as cystoscopy with removal of 5cm long nard plastic wrapped in paper removed from urethra. Admission Exam Per Admitting Provider PHYSICAL EXAM: General: awake, alert, no apparent distress Head: Normocephalic, atraumatic with face gaurd in place ENT: PERRL, EOMI, no pharyngeal exudate, mucous membranes moist Neuro: AAO x 3, speech clear and appropriate, strength intact bilaterally 5/5, sensation intact and equal all extremities and dermatomes, no pronator drift Chest: equal rise and fall of the chest, no accessory muscle use, no heaves or thrills, Clear to auscultation, on room air, Cardiac: Regular rate and rhythm, skin warm dry, cap refill <3 seconds, peripheral pulses +2 no JVD, no murmur, no edema GI: NABS x 4 quadrants, soft, nontender to palpation, no rebound, guarding or tenderness : Spontaneously voiding, no pain, no CVA tenderness, Extremities: Normal inspection, no peripheral edema or erythema, calfs nontender to palpation Psych: Normal mood and affect cooperative and calm Skin: no rash or erythema Principal Diagnosis ingestion of foreign objects, insertion of foreign object into urethra, schizophrenia, depression Discharge Exam Constitutional laying in bed comfortably, no acute distress Respiratory normal respiratory effort, clear to auscultation bilaterally Cardiovascular RRR no MRG Gastrointestinal (Abdomen) tender to palpation in left side of abdomen, no guarding or acute abdomen, no masses Neurologic alert and oriented x3 Psychiatric denies SI/HI, denies hallucinations Discharge Data Allergies Allergy/AdvReac Type Severity Reaction Status Date / Time No Known Allergies Allergy Unverified 11/27/21 16:05 Consultations 11/27/21 17:36 Consult Urology Routine ED Decision to Admit Stat 11/27/21 21:54 Consult Gastroenterology Routine Consult Urology Routine Procedures Performed Operation Date: 11/27/21 18:40 Actual Procedures s Cystoscopy, Foreign Body Removal(Not Applicable) - Nakul Leslie MD p Esophagogastroduodenoscopy(Not Applicable) - Santiago Jeff DO Operation Date: 12/04/21 17:00 Actual Procedures p Colonoscopy Foreign Body Removal - Lisa Murray MD Ordered Studies 11/27/21 14:48 CT abd pelvis wo con Stat CT chest diagnostic wo con Stat Hospital Course (1) Foreign body ingestion: 21 year old from [facility] with PMH of schizophrenia and depression admitted for repeat ingestion of foreign body and insertion of foreign body into his urethra. Foreign body ingestion -Repeat admission after being d/c'd last week following EUS and ureteroscopy for foreign body ingestion and insertion into urethra -11/27, GI removed several FB from the patient's esophagus, stomach and jejunum during EUS -Tylenol 1000 mg scheduled every 8 hours for abdominal pain. On 12/01 added ibuprofen 800 mg every 8hours as needed for abdominal pain not controlled by Tylenol. -Passed wire metal object around 4:30pm on 12/03 along with bright red blood and increased pain - No evidence of perforation or free air on urgent upright KUB on 12/03 afternoon, CBC and BMP stable - had 1 non-bloody stool after passing FB yesterday -Colonoscopy done on 12/04/21 for FB retrieval - removed metal button and staple, found shallow ulcer at the rectosigmoid colon, likely related to foreign body ingestion. -On repeat KUB post-colonoscopy: one metal object, likely a button, remaining in colon at the splenic flexure -Avoid non-monitored access to small non-edible object that could be ingested including metal objects, straws, utensils, string etc -Resume full diet on discharge Foreign body in urethra -11/27 cystoscopy with removal of foreign body, paperclip wrapped in plastic from urethra without significant damage to the urethra or bladder. -Doing well post ruiz removal on 12/02, able to urinate without issue or pain Schizophrenia -started haloperidol 2.5mg PO HS on 10/28. Increased to 5mg on 12/01, 7.5mg on 12/02. -Continue haloperidol 7.5mg PO HS. Consider increase to 10mg haloperidol PO HS after discharge. -Patient continues to deny auditory hallucinations. Feels it has decreased anxiety and mood fluctuations a little -Feeling less tempted to ingest FB again once discharged to [facility] -Denies feeling suicidal currently, still has urges to self harm -As needed Benadryl for dystonia Depression -Denies SI/HI currently but self-injurious behavior has been a recurrent problem for this patient -Continue Mirtazapine 30mg PO HS -Continue Paroxetine Hcl 30mg PO HS Total Time Total Time Spent Total Time Spent (In Minutes): <30 Discharge Plan Discharge Items [facility] Reason For Visit: INGESTION OF METAL OBJECT Discharge Diagnosis: foreign body ingestion Activity: Per Instructions section Non-emergency contact: Primary Care Provider Call non-emergency contact if: your symptoms worsen Follow-up/Referrals: Kalyn ROBERSON [Primary Care Provider] - Diet: Regular Addtl Attending Provider Instructions: 21 year old from [facility] with PMHx. of schizophrenia and depression admitted for repeat ingestion of foreign body and insertion of foreign body into his urethra. Foreign body ingestion -Repeat admission after being d/c'd last week following EUS and ureteroscopy for foreign body ingestion and insertion into urethra -11/27, GI removed several FB from the patient's esophagus, stomach and jejunum during EUS -Tylenol 1000 mg scheduled every 8 hours for abdominal pain. On 12/01 added ibuprofen 800 mg every 8hours as needed for abdominal pain not controlled by Tylenol. -Passed wire metal object around 4:30pm on 12/03 along with bright red blood and increased pain - No evidence of perforation or free air on urgent upright KUB on 12/03 afternoon, CBC and BMP stable -had 1 non-bloody stool after passing FB yesterday -Colonoscopy done on 12/04/21 for FB retrieval - removed metal button and staple, found shallow ulcer at the rectosigmoid colon, likely related to foreign body ingestion. -On repeat KUB post-colonoscopy: one metallic object (button) remaining in splenic flexure -Avoid non-monitored access to small non-edible object that could be ingested including metal objects, straws, utensils, string etc -can resume regular diet on discharge Foreign body in urethra -11/27 cystoscopy with removal of foreign body, paperclip wrapped in plastic from urethra without significant damage to the urethra or bladder. -Doing well post ruiz removal on 12/02, able to urinate without issue or pain Schizophrenia -started haloperidol 2.5mg PO HS on 10/28. Increased to 5mg on 12/01, 7.5mg on 12/02. -Continue haloperidol 7.5mg PO HS. Consider increase to 10mg haloperidol PO HS after discharge. -Patient continues to deny auditory hallucinations. Feels it has decreased anxiety and mood fluctuations a little -Feeling less tempted to ingest FB again once discharged to [facility] -Denies feeling suicidal currently, still has urges to self harm -As needed Benadryl for dystonia Depression -Denies SI/HI currently but self-injurious behavior has been a recurrent problem for this patient -Continue Mirtazapine 30mg PO HS -Continue Paroxetine Hcl 30mg PO HS Pending Studies at Discharge: No Stand-Alone Forms: My [facility] [employer] Skilled Items Patient informed of condition?: Yes Discharge Level of Care: Other Communicable Disease: No Discharge Prognosis: Stable Lines: None Urinary Catheter: No Medications and DC Order Prescriptions: New haloperidol 5 mg Tablet 7.5 mg PO HS Qty: 30 RF: 0 Continued mirtazapine 30 mg Tablet 30 mg PO HS RF: 0 paroxetine HCl 30 mg Tablet 30 mg PO HS RF: 0 Discharge Orders: Discharge Order (Routine); Ordered 12/04/21 Ordered By: Andre Gore/Other Patient Handouts: Preventing Deep Vein Thrombosis Admission Data Admit Date/Time: 11/29/21 15:00 Attending Provider: Tigre Das Admit Provider: Tigre Das [facility] Other Providers: Nakul Leslie ; Tigre Das ; Santiago Jeff Other Interventions: Discharge Summary Assessment (RN) Last Done: 12/04/21 16:16 Supervising Physician Co-Signing Physician Notes I personally examined the patient and verified all tirado points of history and exam, discussed case, and agree with decision making with Alana Eng MS4 pt seen prior to colonoscopy; post scope GI felt safe for discharge. vitals noted nad heent nc at mmm breathing unlabored no accessory muscles good effort skin no rashes no pallor or icterus FB ingestion - post colo and FB removal; residual noted on KUB appears to be of low risk - stable for discharge, outpt f/u urethral FB - removed by urology. ruiz out schizophrenia - symptomatically doing better w haldol - continue this until further recs by [facility] psych otherwise as above
--- NOTE | 2021-12-04 14:31 | XRay Report ---
XR KUB/Abdomen 1 view CLINICAL HISTORY: follow up FB. COMPARISON STUDY: 12/05/2019 08/07/2027 and TECHNIQUE: Single view of the abdomen. FINDINGS: The bowel gas pattern is within normal limits without evidence for dilatation or obstruction. Compare d to the previous examination, only one residual metallic foreign body is seen at the level of the sp lenic flexure. The linear density previously described at the splenic flexure persists and is most ch aracteristic of suture material.. There is no evidence for organomegaly or gross intra-abdominal mass . No abnormal calcifications are seen along the course of the urinary tracts bilaterally. No acute os seous pathology. IMPRESSION: 1. Only one metallic foreign body remains present at the level of the splenic flexure. ACT 112: Negative or not required by law. Electronically signed by: James Engle M.D. 12/04/2021 2:30 PM
--- NOTE | 2021-12-04 16:30 | Billing Data ---
Date of Service December 04, 2021 Coding Level of Care Code D/C DAY MANAGEMENT <30 MINS
== END 2021-12-04 16:48 | DRG 699 ==
LOC: ED 14:09 → OR 18:11 → 3E 18:11 → SUATTDRO 18:12

== ENCOUNTER 2021-12-08 13:01 | Inpatient (IN) ==
--- NOTE | 2021-12-08 13:44 | Emergency Department Note ---
History of Present Illness General Chief complaint: Foreign Body Stated complaint: FOREIGN OBJECT Time Seen by Provider: 12/08/21 13:20 History of Present Illness Maximum Pain Intensity: 8 This is a 21-year-old male currently incarcerated [facility] accompanied by 3 corrections officers with spit guard and facial mesh covering in place with complaints of "foreign object". Patient notes that he ingested a piece of metal this past Thursday. He states that he swallowed 3-4 silver pieces of metal that he was able to peel off of a gate in the correctional facility. He also notes at the same time he placed a piece of metal into his urethra. He states that since then he has been experiencing ongoing abdominal discomfort, blood in the stool, and trouble urinating as of recent. He was able to urinate last night. He notes that he did this for "suicide". Patient denies any pertinent past medical history. Patient does note history of scopes previously as well as abdominal surgeries secondary to ingested foreign bodies. He denies any allergies. Patient notes that around 11 AM today he had turkey, stuffing, carrots, gravy and water. Home Medications Medication Instructions Recorded Confirmed Type paroxetine HCl 30 mg tablet 30 mg PO HS 12/02/20 12/08/21 History mirtazapine 30 mg tablet 30 mg PO HS 11/21/21 12/08/21 History haloperidol 5 mg tablet 7.5 mg PO HS #30 tab 12/04/21 12/08/21 Rx Allergies Allergy/AdvReac Type Severity Reaction Status Date / Time No Known Allergies Allergy Unverified 12/08/21 16:02 Past Med/Surg History Medical History Anxiety Depression H/O swallowed foreign body Schizophrenia Surgical History H/O esophagogastroduodenoscopy Social History Smoking Status: Never smoker Tobacco Type: Cigarettes Second Hand Exposure: Yes; Hx Alcohol Use: No Hx Substance Use: No Preferred Language: Citizen Of [place] [employer] Range [employer] Cloth Required: No Beliefs That Will Affect Care: None Current Living Situation: Other Current Living Situation Comment: Incarcerated at [facility] Feels Safe at Home: Yes Assistive Devices: None Review of Systems A total of 10 systems reviewed and were otherwise negative Physical Exam Vital Signs Vital Signs - 24 hr 12/08/21 13:12 12/08/21 13:29 12/08/21 15:03 Temperature 36.8 C Temperature Source Temporal Artery Scan Pulse Rate 99 H Pulse Rate [Left Finger] 87 78 Pulse Rhythm [Left Finger] Regular Regular Respiratory Rate 18 16 18 Respiratory Effort / Characteristics Non-Labored Respiratory Depth Normal Normal Normal Respiratory Pattern Regular Blood Pressure 121/74 Blood Pressure [Right Arm] 148/71 H Blood Pressure Mean 89 Blood Pressure Mean [Right Arm] 96 Pulse Oximetry 98 98 98 Oxygen Delivery Method Room Air Sepsis Recent Fever Within 48 Hours No Sepsis New/Unexplained Change in Mental Status No Sepsis Action Taken by Nursing No Action Required 12/08/21 17:00 12/08/21 19:00 Temperature Temperature Source Pulse Rate Pulse Rate [Left Finger] 68 70 Pulse Rhythm [Left Finger] Regular Regular Respiratory Rate 18 16 Respiratory Effort / Characteristics Respiratory Depth Respiratory Pattern Blood Pressure Blood Pressure [Right Arm] 148/70 H 133/85 Blood Pressure Mean Blood Pressure Mean [Right Arm] 96 101 Pulse Oximetry 98 98 Oxygen Delivery Method Room Air Room Air Sepsis Recent Fever Within 48 Hours Sepsis New/Unexplained Change in Mental Status Sepsis Action Taken by Nursing VITAL SIGNS - Vital signs and nursing notes were reviewed. Stable and afebrile. GENERAL -21-year-old male appearing his stated age who is in no acute distress. Handcuffed/shackles in place. Several corrections officers at bedside. Communicates well with provider and answers questions appropriately. SKIN - Without rashes. No meningeal or petechial rash. HEAD - NC/AT. EYES - PERRL with EOMI bilaterally. Sclera anicteric. NOSE - Midline and without cyanosis. No epistaxis or purulent drainage noted. MOUTH/OROPHARYNX - Without perioral cyanosis. NECK - Neck with FROM. No nuchal rigidity. LUNGS - Chest wall symmetric without accessory muscle use, intercostals ret ractions, or central cyanosis. Normal vesicular breath sounds CTA B/L. No wheezes, rales, or rhonchi appreciated. CARDIAC - RRR with S1/S2. No murmur, rubs, or gallops appreciated. ABDOMEN - Abdominal contour normal without pulsations or visible masses. BS normoactive all four quadrants. Gentle palpation to the abdomen elicits tenderness no palpable masses, hepatosplenomegaly, or ascites noted. EXTREMITIES - No clubbing or peripheral cyanosis. +5/5 strength noted in UE/LE bilaterally. NEUROLOGIC - Cranial nerves II through XII grossly intact. PSYCH - A&O, and cooperates fully with examiner. Pt is very pleasant and interacts well with examiner. Course Administered Medications Discontinued Medications Acetaminophen (Ofirmev) 1,000 mg in 100 mls @ 400 mls/hr IV NOW STA Stop: 12/08/21 15:18 Last Infusion: 12/08/21 15:51 Dose: 0 mls/hr Documented by: [id number] Admin: 12/08/21 15:34 Dose: 400 mls/hr Documented by: [id number] Medical Decision Making Laboratory Data Result diagrams: 12/08/21 14:56 12/08/21 16:20 Lab Results 12/08/21 12/08/21 12/08/21 Range/Units 14:56 14:56 16:20 WBC 6.74 (4.8-10.8) K/uL RBC 5.29 (4.7-6.1) M/uL Hgb 12.7 L (14.0-18.0) g/dL Hct 39.0 L (42-52) % MCV 73.7 L (80-100) fL MCH 24.0 L (25-34) pg MCHC 32.6 (32-36) g/dL RDW Std Deviation 36.9 (36.4-46.3) fL RDW Coeff of Bassem 13.7 (11.5-14.5) % Plt Count 303 (130-400) K/uL MPV 10.7 H (7.4-10.4) fL Immature Gran % (Auto) 0.1 % Neut % (Auto) 75.5 % Lymph % (Auto) 15.9 % Hudson % (Auto) 8.0 % Eos % (Auto) 0.4 % Baso % (Auto) 0.1 % Neut # (Auto) 5.08 (1.4-6.5) K/uL Lymph # (Auto) 1.07 L (1.2-3.4) K/uL Hudson # (Auto) 0.54 (0.11-0.59) K/uL Eos # (Auto) 0.03 (0-0.5) K/uL Baso # (Auto) 0.01 (0-0.2) K/uL Immature Gran # (Auto) 0.01 (0.00-0.02) K/uL Poikilocytosis Present Sodium 140 (136-145) mmol/L Potassium TNP 3.7 Chloride 104 (98-107) mmol/L Carbon Dioxide 27 (21-32) mmol/L Anion Gap 9 (3-11) BUN 16 (6-23) mg/dl Creatinine 1.05 (0.6-1.4) mg/dl Est Cr Clr Drug Dosing Not Reportable Est GFR ( Amer) 117.0 ml/min Est GFR (Non-Af Amer) 101.0 ml/min BUN/Creatinine Ratio 15.2 (10-20) Glucose 86 (70-99(Fasting)) mg/dl Calcium 9.4 (8.5-10.1) mg/dl Total Bilirubin 0.5 (0.2-1.0) mg/dl AST TNP 23 ALT 35 (7-52) U/L Alkaline Phosphatase 72 (34-104) U/L Total Protein 7.9 (6.0-8.3) gm/dl Albumin 4.3 (3.4-5.0) gm/dl Globulin 3.6 (2.5-4.0) gm/dl Albumin/Globulin Ratio 1.2 (0.9-2) SARS-CoV-2, RNA, NAAT (NEGATIVE) 12/08/21 Range/Units Unknown WBC (4.8-10.8) K/uL RBC (4.7-6.1) M/uL Hgb (14.0-18.0) g/dL Hct (42-52) % MCV (80-100) fL MCH (25-34) pg MCHC (32-36) g/dL RDW Std Deviation (36.4-46.3) fL RDW Coeff of Bassem (11.5-14.5) % Plt Count (130-400) K/uL MPV (7.4-10.4) fL Immature Gran % (Auto) % Neut % (Auto) % Lymph % (Auto) % Hudson % (Auto) % Eos % (Auto) % Baso % (Auto) % Neut # (Auto) (1.4-6.5) K/uL Lymph # (Auto) (1.2-3.4) K/uL Hudson # (Auto) (0.11-0.59) K/uL Eos # (Auto) (0-0.5) K/uL Baso # (Auto) (0-0.2) K/uL Immature Gran # (Auto) (0.00-0.02) K/uL Poikilocytosis Sodium (136-145) mmol/L Potassium Chloride (98-107) mmol/L Carbon Dioxide (21-32) mmol/L Anion Gap (3-11) BUN (6-23) mg/dl Creatinine (0.6-1.4) mg/dl Est Cr Clr Drug Dosing Est GFR ( Amer) ml/min Est GFR (Non-Af Amer) ml/min BUN/Creatinine Ratio (10-20) Glucose (70-99(Fasting)) mg/dl Calcium (8.5-10.1) mg/dl Total Bilirubin (0.2-1.0) mg/dl AST ALT (7-52) U/L Alkaline Phosphatase (34-104) U/L Total Protein (6.0-8.3) gm/dl Albumin (3.4-5.0) gm/dl Globulin (2.5-4.0) gm/dl Albumin/Globulin Ratio (0.9-2) SARS-CoV-2, RNA, NAAT NEGATIVE (NEGATIVE) Imaging Data Radiologist's Impression: Abdomen/Pelvis CT 12/08/21 13:28 CT abd pelvis wo con CLINICAL HISTORY: ingested foreign body, also penile foreign body COMPARISON STUDY: 11/27/2021 CT DOSE: TECHNIQUE: Standard CT of the Abdomen and Pelvis was performed without IV contrast. The patient did not receive oral contrast. A dose lowering technique was utilized adhering to the principles of ALARA. FINDINGS: This is a limited examination as the patient is restrained by metal shackles. Abdominal cavity: There is no evidence for abdominal mass, adenopathy or ascites. Liver: The liver is homogeneous in attenuation on these limited noncontrast images.. Spleen: The spleen is homogeneous in attenuation on these limited noncontrast images. Pancreas: The pancreas is homogeneous in attenuation on these limited noncontrast images. Gall Bladder: The gallbladder is well distended with no evidence for cholelithiasis, wall thickening or pericholecystic edema.. Adrenal glands: The adrenal glands cannot be imaged due to artifact. Kidneys: The kidneys cannot be imaged due to the artifact. Bowel: There is again evidence for a surgical suture material present involving the stomach. Radiopaque foreign body is seen within the bowel as noted on image # 2000. Foreign body habitus also seen within the bowel on the right side as seen on image 35 of 101. There is also a foreign body within the sigmoid colon on image 68 of 101. No other definite foreign bodies are seen within the bowel. The bowel loops are normally placed within the abdomen and pelvis without evidence for dilatation or obstruction. There is no evidence for mass lesion. There are no inflammatory changes present. There is no evidence for free air. Bladder: There is no evidence for focal bladder wall thickening, calculus or diverticulum. : There is no evidence for pelvic mass or adenopathy. Foreign bodies present within the penile shaft as seen on image 90 2000 Vasculature: There is no evidence for focal aneurysmal dilatation of the abdominal aorta. Osseous structures: There is no acute osseous pathology. IMPRESSION: 1. Limited examination due to metallic shackles. 2. Multiple foreign bodies as described. 3. Penile foreign body as described. 4. Otherwise, no acute intra-abdominal or pelvic abnormality on these limited noncontrast images. ACT 112: Negative or not required by law. Electronically signed by: James Engle M.D. 12/08/2021 2:[address] 12/08/21 13:28 CT chest diagnostic wo con CLINICAL HISTORY: ingested foreign body COMPARISON STUDY: No previous studies for comparison. CT DOSE: 1181.08 mGy.cm TECHNIQUE: Standard CT of the Chest was performed without IV contrast. A dose lowering technique was utilized adhering to the principles of ALARA. FINDINGS: No radiopaque foreign body is identified.1 Airway: The airway is clear. No endobronchial lesion is identified. Lungs: The lungs are clear of acute alveolar opacities, air bronchograms or pulmonary nodules. Pleura: There is no evidence for pleural effusion. There is no evidence for pneumothorax. Mediastinum: There is no evidence for pathologic adenopathy on these limited noncontrast images. The heart size is within normal limits. The thoracic aorta is within normal limits. There is no evidence for pericardial effusion. Osseous structures: There is no acute osseous pathology. IMPRESSION: 1. There is no acute chest disease on these noncontrast images. ACT 112: Negative or not required by law. Electronically signed by: James Engle M.D. 12/08/2021 2:12 PM MDM Narrative Patient was seen and evaluated as above in room D05. Review was performed of nursing notes and vital signs. I did review pertinent previous visits and patient history. After obtaining a thorough history and physical examination the above work up was performed. Patient presents to us today for evaluation of ingested foreign bodies as well as placing piece of metal into the urethra. Patient clinically appears well on examination. He is accompanied by 3 corrections officers. Vital signs stable. Options of care were discussed with the patient. IV access was established. Labs were drawn. I did review the patient's previous visits and will note that he was here on 11/21 as well as 12/02 of this year for very similar presentations. He was also seen here on 11/27/2020 of last year for similar. Patient notes that he swallowed these for "suicide". The patient also notes blood in his stool. He also no trouble urinating as of today. CT imaging was obtained of the chest and abdomen. Results of these as above. Patient has several intestinal foreign bodies as well as urethral foreign body. I discussed this with urology, Dr. Jesus amaral as well as GI, Dr. Mazariegos. In discussing this with Dr. Mazariegos I did confirm with radiology that there were no foreign bodies within the stomach. I spoke with Dr. Engle radiology and there are no foreign bodies within the stomach. Recommendation from GI, Dr. Mazariegos was for bowel prep to allow passage of the foreign bodies. I did relay this to the admission team. The urology service will take the patient to the operative suite for extraction of the urethral foreign body. Unfortunately secondary to the patient's recent full meal that he had just prior to arrival we will have to wait until he is safe to undergo anesthesia. In discussing with with Dr. Burton of urology plan was for medical admission pending surgical intervention. I then discussed the case with the hospitalist, Dr. Osorio. Please refer to further documentation regarding his stay. Patient did ask for something for pain and was ordered IV acetaminophen. Patient was in agreement with plan of care. Case was discussed with the attending physician. GCS: 15 In the evaluation and treatment of this patient the following differential diagnoses were entertained: Ingested foreign body, perforation, abscess, in fection, among others. Impression & Plan Foreign body in urethra, Foreign body ingestion Discharge Plan Visit Data Chief Complaint: Foreign Body Stated Complaint: FOREIGN OBJECT ED Provider: Cresencio Mccall ED Midlevel Provider: Balwinder Peters Discharge Problem: Foreign body in urethra, Foreign body ingestion Patient Disposition: Admitted As Inpatient Condition: Good Discharge Instructions Interventions: ED Discharge Assessment Last Done: 12/08/21 20:08 Forms Stand Alone Forms: [facility] [place] [employer] Prescriptions Prescriptions: No Action mirtazapine 30 mg Tablet 30 mg PO HS RF: 0 paroxetine HCl 30 mg Tablet 30 mg PO HS RF: 0 haloperidol 5 mg Tablet 7.5 mg PO HS Qty: 30 RF: 0 Referrals Referrals: Kalyn ROBERSON [Primary Care Provider] -
--- NOTE | 2021-12-08 14:14 | CT Scan Report ---
CT chest diagnostic wo con CLINICAL HISTORY: ingested foreign body COMPARISON STUDY: No previous studies for comparison. CT DOSE: 1181.08 mGy.cm TECHNIQUE: Standard CT of the Chest was performed without IV contrast. A dose lowering technique was utilized adhering to the principles of ALARA. FINDINGS: No radiopaque foreign body is identified.1 Airway: The airway is clear. No endobronchial lesion is identified. Lungs: The lungs are clear of acute alveolar opacities, air bronchograms or pulmonary nodules. Pleura: There is no evidence for pleural effusion. There is no evidence for pneumothorax. Mediastinum: There is no evidence for pathologic adenopathy on these limited noncontrast images. The heart size is within normal limits. The thoracic aorta is within normal limits. There is no evidence for pericardial effusion. Osseous structures: There is no acute osseous pathology. IMPRESSION: 1. There is no acute chest disease on these noncontrast images. ACT 112: Negative or not required by law. Electronically signed by: James Engle M.D. 12/08/2021 2:12 PM
--- NOTE | 2021-12-08 14:24 | CT Scan Report ---
CT abd pelvis wo con CLINICAL HISTORY: ingested foreign body, also penile foreign body COMPARISON STUDY: 11/27/2021 CT DOSE: TECHNIQUE: Standard CT of the Abdomen and Pelvis was performed without IV contrast. The patient did not receive oral contrast. A dose lowering technique was utilized adhering to the principles of ALASoledad Roche. FINDINGS: This is a limited examination as the patient is restrained by metal shackles. Abdominal cavity: There is no evidence for abdominal mass, adenopathy or ascites. Liver: The liver is homogeneous in attenuation on these limited noncontrast images.. Spleen: The spleen is homogeneous in attenuation on these limited noncontrast images. Pancreas: The pancreas is homogeneous in attenuation on these limited noncontrast images. Gall Bladder: The gallbladder is well distended with no evidence for cholelithiasis, wall thickening or pericholecystic edema.. Adrenal glands: The adrenal glands cannot be imaged due to artifact. Kidneys: The kidneys cannot be imaged due to the artifact. Bowel: There is again evidence for a surgical suture material present involving the stomach. Radiopaq ue foreign body is seen within the bowel as noted on image # 2000. Foreign body habitus also se en within the bowel on the right side as seen on image 35 of 101. There is also a foreign body within the sigmoid colon on image 68 of 101. No other definite foreign bodies are seen within the bowel. The bowel loops are normally placed within the abdomen and pelvis without evidence for dilatation or obstruction. There is no evidence for mass lesion. There are no inflammatory changes present. There i s no evidence for free air. Bladder: There is no evidence for focal bladder wall thickening, calculus or diverticulum. : There is no evidence for pelvic mass or adenopathy. Foreign bodies present within the penile shaf t as seen on image 90 2000 Vasculature: There is no evidence for focal aneurysmal dilatation of the abdominal aorta. Osseous structures: There is no acute osseous pathology. IMPRESSION: 1. Limited examination due to metallic shackles. 2. Multiple foreign bodies as described. 3. Penile foreign body as described. 4. Otherwise, no acute intra-abdominal or pelvic abnormality on these limited noncontrast images. ACT 112: Negative or not required by law. Electronically signed by: James Engle M.D. 12/08/2021 2:22 PM
[2021-12-08] MEDS ORDERED: ACETAMINOPHEN 1,000 MG/100 ML VIAL IV STA (15:04)
[2021-12-08 15:10] LABS: Basophils # (auto) 0.01 K/uL (0-0.2); Basophils % (auto) 0.1 %; Eosinophils # (auto) 0.03 K/uL (0-0.5); Eosinophils % (auto) 0.4 %; Hemoglobin 12.7 g/dL (14.0-18.0); Immature Granulocytes # (auto) 0.01 K/uL (0.00-0.02); Immature Granulocytes % (auto) 0.1 %; Lymphocytes # (auto) 1.07 K/uL (1.2-3.4); Lymphocytes % (auto) 15.9 %; Mean Corpuscular Hgb Conc 32.6 g/dL (32-36); Mean Corpuscular Volume 73.7 fL (80-100); Mean Platelet Volume 10.7 fL (7.4-10.4); Monocytes # (auto) 0.54 K/uL (0.11-0.59); Neutrophils # (auto) 5.08 K/uL (1.4-6.5); Neutrophils % (auto) 75.5 %; Platelet Count 303 K/uL (130-400); RDW Coefficient of Variation 13.7 % (11.5-14.5); RDW Standard Deviation 36.9 fL (36.4-46.3); Red Blood Count 5.29 M/uL (4.7-6.1); White Blood Count 6.74 K/uL (4.8-10.8)
[2021-12-08 15:29] LABS: Poikilocytosis Present
--- NOTE | 2021-12-08 15:33 | Anesthesiology Consultation ---
Date of Service December 08, 2021 Assessment & Plan (1) Encounter for pre-operative examination: Chart Review Chart Review: Acceptable Risk for Surgery and Patient NOT seen in Pre Admission Testing Consults Requested none History Height/Weight Height: 5 ft 10 in Allergies Allergy/AdvReac Type Severity Reaction Status Date / Time No Known Allergies Allergy Unverified 11/27/21 16:05 Medications Home Medications Medication Instructions Recorded Confirmed Last Taken paroxetine HCl 30 mg tablet 30 mg PO HS 12/02/20 11/27/21 11/20/21 18:30 mirtazapine 30 mg tablet 30 mg PO HS 11/21/21 11/27/21 11/20/21 18:30 haloperidol 5 mg tablet 7.5 mg PO HS #30 tab 12/04/21 Unknown Past Medical History Medical History Anxiety Depression H/O swallowed foreign body Schizophrenia Past Surgical History Surgical History H/O esophagogastroduodenoscopy Social History Smoking Status: Never smoker tobacco type: cigarettes Hx Alcohol Use: No Hx Substance Use: No substance use type: does not use Physical Exam Vital Signs Last Vital Signs Temp 98.2 F 12/08/21 13:12 Pulse 99 H 12/08/21 13:12 Resp 18 12/08/21 13:12 BP 121/74 12/08/21 13:12 Pulse Ox 98 12/08/21 13:12 Testing Laboratory Results 12/08/21 14:56 Electrocardiogram Date: 11/28/21 Findings: + NSR @
[2021-12-08 15:40] LABS: Alanine Aminotransferase 35 U/L (7-52); Albumin Globulin Ratio 1.2 (0.9-2); Albumin Level 4.3 gm/dl (3.4-5.0); Alkaline Phosphatase 72 U/L (34-104); Anion Gap 9 (3-11); BUN Creatinine Ratio 15.2 (10-20); Bilirubin,Total 0.5 mg/dl (0.2-1.0); Blood Urea Nitrogen 16 mg/dl (6-23); Calcium 9.4 mg/dl (8.5-10.1); Carbon Dioxide 27 mmol/L (21-32); Chloride 104 mmol/L (98-107); Globulin 3.6 gm/dl (2.5-4.0); Glucose 86 mg/dl (70-99(Fasting)); Sodium 140 mmol/L (136-145); Total Protein 7.9 gm/dl (6.0-8.3)
--- NOTE | 2021-12-08 15:49 | History & Physical Report ---
Date of Service December 08, 2021 Assessment & Plan (1) Foreign body ingestion: Plan: Admit to a general medical bed GI has been consulted. ER staff communicated with on-call physician. She is requesting " bowel prep" to be started in the morning. I do have a message out to the on-call GI physician for specific orders We will keep n.p.o. until cleared by physician (2) Foreign body in urethra: Plan: Urology is also been communicated with by the ER staff Will consult for further recommendations, consider urethroscopy to remove a foreign body in the near future (3) Schizophrenia: (4) Suicidal ideation: Plan: Patient has a history of schizophrenia and suicidal ideation in the past. We will asked psychiatry to evaluate. Patient has long history of ingestion of foreign bodies, unclear if there is anything that can be done to mitigate this behavior in the future History of Present Illness Chief Complaint: foreign body ingestion Primary Care Provider: [facility] This is a 21-year-old male with past medical history of schizophrenia, multiple episodes of foreign body ingestion that presents today with another foreign body ingestion. Patient is an inmate at [facility]. He is accompanied by 3 retirement guards and is in shackles in the room. Per ER documentation, he ingested 3-4 pieces of metal that he peeled off a gate when he was unsupervised. He also inserted an additional piece of metal into his urethra. He does complain of some abdominal discomfort which is in his lower abdomen. Also noted was some bloody stool. He did note to the ER PA that he was trying to commit suicide but he denied any suicidal thoughts when I asked. Patient has since eaten lunch earlier today. Allergies Allergy/AdvReac Type Severity Reaction Status Date / Time No Known Allergies Allergy Unverified 12/08/21 16:02 Home Medications Medication Instructions Recorded Confirmed Type paroxetine HCl 30 mg tablet 30 mg PO HS 12/02/20 11/27/21 History mirtazapine 30 mg tablet 30 mg PO HS 11/21/21 11/27/21 History haloperidol 5 mg tablet 7.5 mg PO HS #30 tab 12/04/21 Rx Past Med/Surg History Medical History Anxiety Depression H/O swallowed foreign body Schizophrenia Surgical History H/O esophagogastroduodenoscopy Social History Smoking Status: Never smoker Tobacco Type: Cigarettes Second Hand Exposure: Yes; Hx Alcohol Use: No Hx Substance Use: No Preferred Language: Greenlandic Head Trimmer Required: No Beliefs That Will Affect Care: None Current Living Situation: Other Current Living Situation Comment: Incarcerated at [facility] Feels Safe at Home: Yes Assistive Devices: None Review of Systems Constitutional: no fever, no chills, no weakness, no weight loss and no weight gain Eyes: as per Subjective / HPI Respiratory: no cough, no chest congestion, no dyspnea and no dyspnea on exertion Cardiovascular: no chest pain, no orthopnea, no palpitations, no lightheadedness and no edema Gastrointestinal: + abdominal pain and + blood in stools; no nausea, no vomiting, no constipation and no diarrhea/loose stools Genitourinary: + difficulty urinating Musculoskeletal: no back pain, no neck pain, no joint pain, no stiffness and no myalgia Integumentary: no rash Neurologic: no gait abnormality, no unsteadiness, no falls and no generalized weakness Psychiatric: no suicidal ideation (did admit to this to ER staff) Physical Exam Physical Exam: exam deferred Results & Data Results & Data ([facility]) Vital Signs (Past 12 Hours) Vital Signs Temp Pulse Resp BP Pulse Ox 12/08/21 13:12 36.8 C 99 H 18 121/74 98 Laboratory Results Laboratory Results WBC 6.74 K/uL (4.8-10.8) 12/08/21 14:56 RBC 5.29 M/uL (4.7-6.1) 12/08/21 14:56 Hgb 12.7 g/dL (14.0-18.0) L 12/08/21 14:56 Hct 39.0 % (42-52) L 12/08/21 14:56 MCV 73.7 fL (80-100) L 12/08/21 14:56 MCH 24.0 pg (25-34) L 12/08/21 14:56 MCHC 32.6 g/dL (32-36) 12/08/21 14:56 RDW Std Deviation 36.9 fL (36.4-46.3) 12/08/21 14:56 RDW Coeff of Bassem 13.7 % (11.5-14.5) 12/08/21 14:56 Plt Count 303 K/uL (130-400) 12/08/21 14:56 MPV 10.7 fL (7.4-10.4) H 12/08/21 14:56 Immature Gran % (Auto) 0.1 % 12/08/21 14:56 Neut % (Auto) 75.5 % 12/08/21 14:56 Lymph % (Auto) 15.9 % 12/08/21 14:56 Brown % (Auto) 8.0 % 12/08/21 14:56 Eos % (Auto) 0.4 % 12/08/21 14:56 Baso % (Auto) 0.1 % 12/08/21 14:56 Neut # (Auto) 5.08 K/uL (1.4-6.5) 12/08/21 14:56 Lymph # (Auto) 1.07 K/uL (1.2-3.4) L 12/08/21 14:56 Brown # (Auto) 0.54 K/uL (0.11-0.59) 12/08/21 14:56 Eos # (Auto) 0.03 K/uL (0-0.5) 12/08/21 14:56 Baso # (Auto) 0.01 K/uL (0-0.2) 12/08/21 14:56 Immature Gran # (Auto) 0.01 K/uL (0.00-0.02) 12/08/21 14:56 Poikilocytosis Present 12/08/21 14:56 Sodium 140 mmol/L (136-145) 12/08/21 14:56 Potassium TNP 12/08/21 14:56 Chloride 104 mmol/L (98-107) 12/08/21 14:56 Carbon Dioxide 27 mmol/L (21-32) 12/08/21 14:56 Anion Gap 9 (3-11) 12/08/21 14:56 BUN 16 mg/dl (6-23) 12/08/21 14:56 Creatinine 1.05 mg/dl (0.6-1.4) 12/08/21 14:56 Est Cr Clr Drug Dosing Not Reportable 12/08/21 14:56 Est GFR ( Amer) 117.0 ml/min 12/08/21 14:56 Est GFR (Non-Af Amer) 101.0 ml/min 12/08/21 14:56 BUN/Creatinine Ratio 15.2 (10-20) 12/08/21 14:56 Glucose 86 mg/dl (70-99(Fasting)) 12/08/21 14:56 Calcium 9.4 mg/dl (8.5-10.1) 12/08/21 14:56 Total Bilirubin 0.5 mg/dl (0.2-1.0) 12/08/21 14:56 AST TNP 12/08/21 14:56 ALT 35 U/L (7-52) 12/08/21 14:56 Alkaline Phosphatase 72 U/L (34-104) 12/08/21 14:56 Total Protein 7.9 gm/dl (6.0-8.3) 12/08/21 14:56 Albumin 4.3 gm/dl (3.4-5.0) 12/08/21 14:56 Globulin 3.6 gm/dl (2.5-4.0) 12/08/21 14:56 Albumin/Globulin Ratio 1.2 (0.9-2) 12/08/21 14:56 SARS-CoV-2, RNA, NAAT NEGATIVE (NEGATIVE) 12/08/21 Unknown Impressions Abdomen/Pelvis CT 12/08/21 13:28 CT abd pelvis wo con CLINICAL HISTORY: ingested foreign body, also penile foreign body COMPARISON STUDY: 11/27/2021 CT DOSE: TECHNIQUE: Standard CT of the Abdomen and Pelvis was performed without IV cont rast. The patient did not receive oral contrast. A dose lowering technique was utilized adhering to the principles of ALARA. FINDINGS: This is a limited examination as the patient is restrained by metal shackles. Abdominal cavity: There is no evidence for abdominal mass, adenopathy or ascites. Liver: The liver is homogeneous in attenuation on these limited noncontrast images.. Spleen: The spleen is homogeneous in attenuation on these limited noncontrast images. Pancreas: The pancreas is homogeneous in attenuation on these limited noncontrast images. Gall Bladder: The gallbladder is well distended with no evidence for cholelithiasis, wall thickening or pericholecystic edema.. Adrenal glands: The adrenal glands cannot be imaged due to artifact. Kidneys: The kidneys cannot be imaged due to the artifact. Bowel: There is again evidence for a surgical suture material present involving the stomach. Radiopaque foreign body is seen within the bowel as noted on image # 2000. Foreign body habitus also seen within the bowel on the right side as seen on image 35 of 101. There is also a foreign body within the sigmoid colon on image 68 of 101. No other definite foreign bodies are seen within the bowel. The bowel loops are normally placed within the abdomen and pelvis without evidence for dilatation or obstruction. There is no evidence for mass lesion. There are no inflammatory changes present. There is no evidence for free air. Bladder: There is no evidence for focal bladder wall thickening, calculus or diverticulum. : There is no evidence for pelvic mass or adenopathy. Foreign bodies present within the penile shaft as seen on image 90 2000 Vasculature: There is no evidence for focal aneurysmal dilatation of the abdominal aorta. Osseous structures: There is no acute osseous pathology. IMPRESSION: 1. Limited examination due to metallic shackles. 2. Multiple foreign bodies as described. 3. Penile foreign body as described. 4. Otherwise, no acute intra-abdominal or pelvic abnormality on these limited noncontrast images. ACT 112: Negative or not required by law. Electronically signed by: James Engle M.D. 12/08/2021 2:[address] 12/08/21 13:28 CT chest diagnostic wo con CLINICAL HISTORY: ingested foreign body COMPARISON STUDY: No previous studies for comparison. CT DOSE: 1181.08 mGy.cm TECHNIQUE: Standard CT of the Chest was performed without IV contrast. A dose lowering technique was utilized adhering to the principles of ALARA. FINDINGS: No radiopaque foreign body is identified.1 Airway: The airway is clear. No endobronchial lesion is identified. Lungs: The lungs are clear of acute alveolar opacities, air bronchograms or pulmonary nodules. Pleura: There is no evidence for pleural effusion. There is no evidence for pneumothorax. Mediastinum: There is no evidence for pathologic adenopathy on these limited noncontrast images. The heart size is within normal limits. The thoracic aorta is within normal limits. There is no evidence for pericardial effusion. Osseous structures: There is no acute osseous pathology. IMPRESSION: 1. There is no acute chest disease on these noncontrast images. ACT 112: Negative or not required by law. Electronically signed by: James Engle M.D. 12/08/2021 2:12 PM PG Care Time/CCT Total # of Minutes Spent Total Time Spent with Patient: Total time spent is greater than 50% in coordination of care (as documented) at patient's floor/unit and/or counseling patient: Coding Level of Care Code 25410 Initial Inpt Care Lvl 1 Diagnoses Schizophrenia F20.9 Foreign body ingestion T18.9XXA Encounter type: initial encounter Foreign body in urethra T19.0XXA Encounter type: initial encounter Suicidal ideation R45.851 (1) Foreign body ingestion Encounter type: initial encounter Qualified Code(s): T18.9XXA - Foreign body of alimentary tract, part unspecified, initial encounter (2) Foreign body in urethra Encounter type: initial encounter Qualified Code(s): T19.0XXA - Foreign body in urethra, initial encounter
[2021-12-08 16:54] LABS: Potassium 3.7 mmol/L (3.5-5.1)
--- NOTE | 2021-12-08 19:22 | Urology Consultation ---
Date of Consultation December 08, 2021 Assessment & Plan (1) Foreign body in urethra: (2) Schizophrenia: (3) Suicidal ideation: Discussed need for urgent/emergent assessment and removal of foreign body due to potential for severe obstruction issues with development of sepsis, renal damage, or other major issues such as bladder perforation or severe retention. Patient is known to have a significant recent history of multiple attempts to ingest foreign bodies or insert them into the urethra. Has been admitted and required intervention 2 times prior to this. Will need intervention for removal of foreign body. Has been diagnosed in the past with schizophrenia. Reviewed once again importance of avoiding further trauma to urethra with possibility for severe issues including stricture and development of worsening ongoing issues. We will plan to proceed with urgent procedure due to severe obstruction with foreign body. Risks and benefits discussed at length for procedure. These include bleeding, infection, injury to surrounding tissues or organs, and risks associated with anesthesia. Patient states understanding and agrees to proceed. Will sign consent and proceed. Plan for cystoscopy with retrieval of foreign body possible dilation History of Present Illness History of Present Illness New consultation for patient with recent history of multiple episodes of self- harm and malingering with insertion of foreign bodies into the urethra as well as ingestion of foreign bodies. Patient is an inmate at the correctional facility. Has been seen twice before by the urology service in the last month for insertion of foreign bodies into the urethra. Has needed retrieval of foreign bodies with cystoscopy both times. Numerous attempts to awake overnight counselor patient by our partners about the major danger of repeated insertion. Patient had catheter at last admission that must of been subsequently removed. Patient is a unreliable historian. Unsure of the exact time of insertion of f oreign body. Patient had undergone CT scan as well as KUB in order to assess foreign body within the GI system. CT was able to clearly show foreign body within the urethra. Patient having considerable discomfort. Is uncooperative with interview/questioning, examination, and discussion. Patient is having both GI and issues with foreign bodies. Is going to be admitted for supportive care with an aggressive bowel prep as per the GI assessment the foreign bodies have passed in the stomach and are no longer retrievable and will need to be passed. No known family history of these type issues. Allergies Allergy/AdvReac Type Severity Reaction Status Date / Time No Known Allergies Allergy Unverified 12/08/21 16:02 Home Medications Medication Instructions Recorded Confirmed Type paroxetine HCl 30 mg tablet 30 mg PO HS 12/02/20 12/08/21 History mirtazapine 30 mg tablet 30 mg PO HS 11/21/21 12/08/21 History haloperidol 5 mg tablet 7.5 mg PO HS #30 tab 12/04/21 12/08/21 Rx Patient History Medical History Anxiety Depression H/O swallowed foreign body Schizophrenia Surgical History H/O esophagogastroduodenoscopy Social History Smoking Status: Never smoker Tobacco Type: Cigarettes Second Hand Exposure: Yes; Hx Alcohol Use: No Hx Substance Use: No Preferred Language: Iraqi Marketing Compliance Manager Required: No Beliefs That Will Affect Care: None Current Living Situation: Other Current Living Situation Comment: Incarcerated at [facility] Feels Safe at Home: Yes Assistive Devices: None Review of Systems Review of Systems: All systems reviewed & are unremarkable except as noted in HPI & below (Limited due to patient cooperation) Physical Exam Physical Exam: General: Alert and oriented x 3 in no acute distress. Patient is restrained with numerous guards. HEENT: Normocephalic Atraumatic. Inspection normal. Patient wearing face shield. Normal inspection of face. Normal inspection of neck. Neurologic: No deficits on inspection. Baseline for motor function and sensory. Psychologic: Normal affect. Baseline significant issues with known history of self-harm and malingering Respiratory: Nonlabored. No use of accessory muscles. No tachypnea or dyspnea. Cardiovascular: No tachycardia Skin: [place] and Dry. No rashes or visible lesions. Extremities: Significant restraints but otherwise moving without issues. No motor deficits on inspection Lymphatics: No edema Abdomen: Soft moderately distended. : no blood at meatus Results & Data ([facility]) Vital Signs (Past 12 Hours) Vital Signs Temp Pulse Pulse Resp BP BP Pulse Ox 12/08/21 17:00 68 18 148/70 H 98 12/08/21 15:03 78 18 98 12/08/21 13:29 87 16 148/71 H 98 12/08/21 13:12 36.8 C 99 H 18 121/74 98 PG Care Time/CCT Total # of Minutes Spent Total Time Spent with Patient: Total time spent is greater than 50% in coordination of care (as documented) at patient's floor/unit and/or counseling patient: Coding Level of Care Code 08885 Inpt Consult Level 5 Diagnoses Foreign body in urethra T19.0XXA Encounter type: initial encounter Schizophrenia F20.9 Suicidal ideation R45.851 (1) Foreign body in urethra Encounter type: initial encounter Qualified Code(s): T19.0XXA - Foreign body in urethra, initial encounter
[2021-12-08] MEDS ORDERED: MEPERIDINE HCL 25 MG/ML CARP/VIAL IV PRN (19:58)
[2021-12-08] MEDS ORDERED: ePHEDrine sulfate 50 MG/ML AMP IV PRN (19:58)
[2021-12-08] MEDS ORDERED: LABETALOL HCL IV 5 MG/ML 20ML IV PRN (19:58)
[2021-12-08] MEDS ORDERED: ATROPINE SULFATE 0.1 MG/ML 10ML SYR IV PRN (19:58)
[2021-12-08] MEDS ORDERED: fentaNYL citrate 100 MCG/2 ML VIAL IV PRN (19:58)
[2021-12-08] MEDS ORDERED: ONDANSETRON INJ 2 MG/ML 2 ML VIAL IV PRN ×2 (19:58→21:42)
[2021-12-08] MEDS ORDERED: HYDROmorphone INJ 1 MG/ML SYRINGE IV PRN (19:58)
[2021-12-08] MEDS ORDERED: PHENYLEPHRINE 100MCG/ML 5ML SYR IV PRN (19:58)
[2021-12-08] MEDS ORDERED: ceFAZolin 330 MG/ML 1 GM VIAL ONE (20:18)
[2021-12-08] MEDS ORDERED: fentaNYL citrate 100 MCG/2 ML VIAL ONE (20:22)
[2021-12-08] MEDS ORDERED: MIDAZOLAM HCL 1 MG/ML 2ML VIAL ONE (20:22)
[2021-12-08] MEDS ORDERED: KETAMINE 50 MG/5 ML SYRINGE ONE (20:34)
[2021-12-08] MEDS ORDERED: LIDOCAINE 2% 2 ML VIAL/AMP(20MG/ML) INFIL ONE (20:34)
[2021-12-08] MEDS ORDERED: ceFAZolin 2000MG 2,000 MG/15 ML SYR IV ONE (20:46)
--- NOTE | 2021-12-08 20:49 | Operative Report ---
PG Post Operative Report Pre & Post Diagnosis Foreign body Urethra Same Operation Date: 12/08/21 20:30 <No data on this case meets the specified criteria> I identified the patient and participated in the time-out.: Yes Procedure Cystoscopy with extraction of foreign body Operation Date: 12/08/21 20:30 <No data on this case meets the specified criteria> Surgeon José Luis Burton, II, DO Race Relations Adviser None Estimated Blood Loss 1 Findings Consistent with Post-Op Diagnosis Approx 5 cm metallic semilunar foreign body in the distal pendulous urethra with beveled edges. Bladder without masses or lesions. No active Bleeding. Minor irritation in pendulous urethra. No laceration. Mild to moderate stricture/scarring of urethra. Specimens Foreign body Drains None Anesthesia Type MAC Complications none Disposition Disposition: Recovery Room Indications Patient with foreign body inserted into urethra. Risks and benefits discussed at length. Urgent procedure due to obstruction. Description of Procedure Patient was consented and brought back to the operating room. Patient was placed under anesthesia in the supine position and moved to the dorsal lithotomy position. Patient was prepped and draped in the regular sterile fashion. A time out was completed. A 30 degree Cystoscope was placed into the urethra. In the distal 1/3 of the pendulous urethra a metallic foreign body was discovered. Moderate irritation but no ulceration or laceration. This was grasped with a grasper and removed. Foreign body was found to be as described above in findings. This was sent for analysis. The scope was then replaced and advanced to the bladder and the entire bladder was examined. The UO's were identified as well as the bladder neck, trigone, dome, and the other important landmarks. No lesions/suspicious areas were identified. No bleeding was discovered. The bladder was inspected a final time. The bladder was emptied. The scope was removed. The urethra was inspected a final time. No active bleeding. Areas of previous scarring and stricture were noted but were mild to moderate and were easily bypassed by the scope. Images were captured after the removal. The patient was cleaned, aroused from anesthesia, and transferred to the pacu in stable condition having tolerated the procedure well with no complications. I was present and participated in all aspects of the procedure. The patient will be monitored in the PACU until transferred. Is going to be observed/admitted by medicine for management of foreign body in bowels. Will plan to followup as outpatient. I attest to the content of the Intraoperative Record and any orders documented therein. Any exceptions are noted below.
--- NOTE | 2021-12-08 21:12 | Anesthesiology Progress Note ---
Date of Service December 08, 2021 Anesthesia Post Procedure Vital Signs Vital Signs: Temp Pulse Pulse Pulse Resp BP BP 12/08/21 21:00 68 12 132/79 12/08/21 20:50 36.5 C 89 16 128/65 12/08/21 19:00 70 16 133/85 12/08/21 17:00 68 18 148/70 H 12/08/21 15:03 78 18 12/08/21 13:29 87 16 148/71 H 12/08/21 13:12 36.8 C 99 H 18 121/74 Pulse Ox 12/08/21 21:00 100 12/08/21 20:50 99 12/08/21 19:00 98 12/08/21 17:00 98 12/08/21 15:03 98 12/08/21 13:29 98 12/08/21 13:12 98 Pain Intensity Abdomen: Pain Intensity: 1 Transfer of Care Handoff Completed per policy Notes Mental Status: alert / awake / arousable Patient Amnestic to Procedure: Yes Nausea / Vomiting: adequately controlled Pain: adequately controlled Airway Patency, RR, SpO2: stable & adequate BP & HR: stable & adequate Hydration State: stable & adequate Anesthetic Complications: no major complications apparent and Pt Satisfied with anesthetic care
[2021-12-08] MEDS ORDERED: PROPOFOL IV EMULSION 10 MG/ML 20 ML VIAL IV ONE (21:16)
[2021-12-08] MEDS ORDERED: ACETAMINOPHEN 325 MG TAB PO PRN (21:42)
[2021-12-08] MEDS ORDERED: LAVAGE SOLUTION 4000ML PO ONE (21:42)
[2021-12-08] MEDS: haloperidoL 5 MG TAB PO SCH (22:20)
[2021-12-08] MEDS: PARoxetine HCL 20 MG TAB PO SCH (22:20)
[2021-12-08] MEDS: MIRTAZAPINE TAB 15 MG TAB PO SCH (22:20)
[2021-12-09 09:14] LABS: Basophils # (auto) 0.01 K/uL (0-0.2); Basophils % (auto) 0.2 %; Eosinophils # (auto) 0.05 K/uL (0-0.5); Hemoglobin 12.2 g/dL (14.0-18.0); Immature Granulocytes # (auto) 0.02 K/uL (0.00-0.02); Immature Granulocytes % (auto) 0.4 %; Lymphocytes # (auto) 1.41 K/uL (1.2-3.4); Lymphocytes % (auto) 28.1 %; Mean Corpuscular Hemoglobin 24.2 pg (25-34); Mean Corpuscular Hgb Conc 32.1 g/dL (32-36); Mean Corpuscular Volume 75.2 fL (80-100); Mean Platelet Volume 10.7 fL (7.4-10.4); Monocytes # (auto) 0.49 K/uL (0.11-0.59); Monocytes % (auto) 9.8 %; Neutrophils # (auto) 3.04 K/uL (1.4-6.5); Neutrophils % (auto) 60.5 %; Platelet Count 278 K/uL (130-400); RDW Coefficient of Variation 13.8 % (11.5-14.5); RDW Standard Deviation 37.8 fL (36.4-46.3); Red Blood Count 5.05 M/uL (4.7-6.1); White Blood Count 5.02 K/uL (4.8-10.8)
[2021-12-09 09:37] LABS: BUN Creatinine Ratio 14.3 (10-20); Calcium 9.2 mg/dl (8.5-10.1); Creatinine Clr Calc Pharmacy 107.7 ml/min; Est GFR (African American) 108.3 ml/min; Est GFR (Non-African American) 93.4 ml/min; Magnesium 1.9 mg/dl (1.7-2.4); Potassium 3.8 mmol/L (3.5-5.1)
--- NOTE | 2021-12-09 09:38 | Gastrointestinal Consultation ---
Date of Consultation December 09, 2021 Assessment & Plan (1) Foreign body: Repetitive purposeful ingestion of foreign bodies in prisoner. Nothing in the stomach. Patient can be given laxatives to encourage passage of the ingested objects. No plans for endoscopic intervention. this patient should be placed in isolation with access to NOTHING and have 1:1 supervision when returned to shelter. History of Present Illness Reason for Consultation: foreign bodies in GI tract on imaging Attending Physician: Ezequiel Paiz MD History of Present Illness 21 yo male resident of corrections facility with a psychiatric history and repetitive foreign body ingestion and history of putting objects in his urethra. Just discharged a few days ago after the same. Noted to have multiple things in the bowel and colon. Nothing in the stomach. Was taken to the OR urgently for removal of the foreign body in the penis/urethra. Allergies Allergy/AdvReac Type Severity Reaction Status Date / Time No Known Allergies Allergy Unverified 12/08/21 16:02 Home Medications Medication Instructions Recorded Confirmed Type paroxetine HCl 30 mg tablet 30 mg PO HS 12/02/20 12/08/21 History mirtazapine 30 mg tablet 30 mg PO HS 11/21/21 12/08/21 History haloperidol 5 mg tablet 7.5 mg PO HS #30 tab 12/04/21 12/08/21 Rx Patient History Medical History Anxiety Depression H/O swallowed foreign body Schizophrenia Surgical History H/O esophagogastroduodenoscopy Social History Smoking Status: Never smoker Tobacco Type: Cigarettes Second Hand Exposure: Yes; Hx Alcohol Use: No Hx Substance Use: No Preferred Language: Yoruba Communication Ability: Effective Post Graduate Intern Required: No Beliefs That Will Affect Care: None Current Living Situation: Other Current Living Situation Comment: [facility] Feels Safe at Home: Yes Assistive Devices: None Review of Systems Review of Systems: All systems reviewed & are unremarkable except as noted in HPI & below Physical Exam Constitutional: WD/WN, vitals as above Respiratory: normal respiratory effort, lungs clear to auscultation Cardiovascular: RRR, no murmur, no edema Gastrointestinal (Abdomen): normal bowel sounds, soft, nontender, no hep atosplenomegaly Results & Data ([facility]) Vital Signs (Past 12 Hours) Vital Signs Temp Pulse Pulse Resp BP Pulse Ox 12/09/21 07:26 36.8 C 62 16 124/78 98 12/08/21 23:00 36.6 C 74 16 122/72 97 12/08/21 22:30 36.6 C 76 17 124/74 99 12/08/21 22:00 36.7 C 88 16 125/77 98 12/08/21 21:43 36.6 C 66 16 115/78 100
--- NOTE | 2021-12-09 12:52 | Hospitalist Progress Note ---
Date of Service December 09, 2021 Assessment & Plan (1) Foreign body ingestion: Plan: Repeated intentional ingestions. - GI has been consulted - No plan for EGD. Can consider laxatives to speed passage per GI. - Follow with daily KUBs for passage. (2) Foreign body in urethra: Plan: Removed on 12/08 by urology. (3) Schizophrenia: Plan: Psychiatry consulted. - Continue Haldol, mirtazapine, and Paxil (4) Suicidal ideation: Plan: Patient has a history of schizophrenia and suicidal ideation in the past. Patient has long history of ingestion of foreign bodies, unclear if there is anything that can be done to mitigate this behavior in the future. - Psychiatry consult pending (5) DVT prophylaxis: Plan: SCDs - Low DVT risk per admission calculator Admission and Anticipated Discharge Date Admission Date: December 08, 2021 Subjective No abdominal pain today. Reports no fevers/chills, chest pain, shortness of breath, abdominal pain, nausea, or vomiting. Physical Exam Constitutional: WD/WN, vitals as above Eyes: EOM intact bilaterally; no conjunctival abnormality ENMT: external ear and nose normal, oropharynx normal Neck: trachea midline, no thyromegaly normal visual inspection Respiratory: normal respiratory effort, lungs clear to auscultation no respiratory distress Cardiovascular: RRR, no murmur, no edema Gastrointestinal (Abdomen): Inspection/Auscultation: abdomen normal to inspection; abdomen not distended Musculoskeletal: no cyanosis or clubbing, extremities motor strength 5/5 Skin: no rashes, warm and dry Neurologic: moves all extremities and awake Psychiatric: Orientation: alert, oriented to person and cooperative Results & Data Results & Data ([facility]) Vital Signs (Past 12 Hours) Vital Signs Temp Pulse Resp BP Pulse Ox 12/09/21 07:26 36.8 C 62 16 124/78 98 PG Care Time/CCT Total # of Minutes Spent Total Time Spent with Patient: Total time spent is greater than 50% in coordination of care (as documented) at patient's floor/unit and/or counseling patient: Coding Level of Care Code 22946 Subseq Hosp Care Lvl 2 Diagnoses Foreign body ingestion T18.9XXA Foreign body in urethra T19.0XXA Schizophrenia F20.9 Suicidal ideation R45.851 DVT prophylaxis Z29.9
--- NOTE | 2021-12-09 14:12 | Psychiatric Consultation ---
Date of Consultation December 09, 2021 Impression / Recommendations Impression 21 yo male with long hx of insitutionalization and prior diagnosis of schizophrenia, currently resting comfortably with plan for laxatives. He was not grossly disorganized or responding to internal stimuli. (1) Schizophrenia: (2) Foreign body: liaison to follow [facility] guards providing 1-on-1 on med floor no acute agitation/need to adjust meds, may benefit from increase in Haldol but would not do until GI issue resolved as can contribute to constipation conversion from PO Haldol to GARCIA per [facility] psychiatrist (patient had reportedly refused to meet with provider leading up to this event). Psych History Identifying Data 21 yo male, inmate at [facility], known to me from recent inpatient hospitalization for foreign body ingestion/foreign body in urethra. Chief Complaint similar presentation History of Present Illness Patient with history of incarcerations since essentially age 15, hx of psychotic symptoms and past response to Haldol/Haldol dec. Had reported SI last contact and possible command hallucinations as reason for SIB but certainly secondary gain. Has remained on close observation in interim and was restarted on Haldol. He reported to liaison that he would prefer decanoate. He also admitted that this time he did what he did as his cell was too cold. He ingested metal pieces off of a gate and GI and urology consults are on file. Allergies Allergy/AdvReac Type Severity Reaction Status Date / Time No Known Allergies Allergy Unverified 12/08/21 16:02 Home Medications Medication Instructions Recorded Confirmed Type paroxetine HCl 30 mg tablet 30 mg PO HS 12/02/20 12/08/21 History mirtazapine 30 mg tablet 30 mg PO HS 11/21/21 12/08/21 History haloperidol 5 mg tablet 7.5 mg PO HS #30 tab 12/04/21 12/08/21 Rx Personal History Beliefs That Will Affect Care: None Patient History Medical History Anxiety Depression H/O swallowed foreign body Schizophrenia Surgical History H/O esophagogastroduodenoscopy Social History Smoking Status: Never smoker Tobacco Type: Cigarettes Second Hand Exposure: Yes; Hx Alcohol Use: No Hx Substance Use: No Preferred Language: Welsh Communication Ability: Effective Clip On Sunglasses Assembler Required: No Beliefs That Will Affect Care: None marital status: Single Current Living Situation: Other Current Living Situation Comment: [facility] Feels Safe at Home: Yes Assistive Devices: None Physical Exam Vital Signs (Past 24 Hours): Last Vital Signs Temp 36.8 C 12/09/21 07:26 Pulse 62 12/09/21 07:26 Resp 16 12/09/21 07:26 BP 124/78 12/09/21 07:26 Pulse Ox 98 12/09/21 07:26 Results & Data (PSY) Medications Administered Haloperidol (Haloperidol 5 Mg Tab) 7.5 mg PO HS WAYNE Stop: 01/07/22 21:41 Last Admin: 12/08/21 22:20 Dose: 7.5 mg Documented by: [id number] Mirtazapine (Mirtazapine Tab 15 Mg Tab) 30 mg PO HS WAYNE Stop: 01/07/22 21:41 Last Admin: 12/08/21 22:20 Dose: 30 mg Documented by: [id number] Paroxetine HCl (Paroxetine Hcl 20 Mg Tab) 30 mg PO HS WAYNE Stop: 01/07/22 21:41 Last Admin: 12/08/21 22:20 Dose: 30 mg Documented by: [id number] Coding Level of Care Code None Diagnoses Schizophrenia F20.9 Foreign body
[2021-12-09] MEDS: PARoxetine HCL 20 MG TAB PO SCH (20:48)
[2021-12-09] MEDS: MIRTAZAPINE TAB 15 MG TAB PO SCH (20:48)
[2021-12-09] MEDS: haloperidoL 5 MG TAB PO SCH (20:48)
[2021-12-09] MEDS ORDERED: ONDANSETRON 4 MG OD TAB PO PRN (22:51)
--- NOTE | 2021-12-10 09:43 | XRay Report ---
XR KUB/Abdomen 1 view CLINICAL HISTORY: Follow foreign bodies in bowel for passage TECHNIQUE: 1 view of the abdomen was obtained. Comparison: Comparison is made to abdomen radiograph 12/16/[address] abdomen pelvis 12/08/2021 FINDINGS: Radiodense fragments are noted in the right upper quadrant and in the pelvis. The The osseous structu res are grossly unremarkable. The bowel gas pattern is nonobstructive. A moderate amount of stool is noted within the large bowel. IMPRESSION: Interval progression of one radiodensity into the pelvis. Another radiodensity is again noted at the right upper quadrant. ACT 112: Negative or not required by law. Electronically signed by: Shlomo Rose M.D. 12/10/2021 9:42 AM
[2021-12-10] MEDS ORDERED: MAGNESIUM CITRATE 296 ML/BTL PO STA (10:16)
--- NOTE | 2021-12-10 13:46 | Hospitalist Progress Note ---
Date of Service December 10, 2021 Assessment & Plan (1) Foreign body ingestion: Plan: Repeated intentional ingestions. - GI has been consulted - No plan for EGD. Can consider laxatives to speed passage per GI. - Follow with daily KUBs for passage - Still present on KUB. No pain. Will advance diet and also give MgCitrate. (2) Foreign body in urethra: Plan: Removed on 12/08 by urology. (3) Schizophrenia: Plan: Psychiatry consulted. - Continue Haldol, mirtazapine, and Paxil (4) Suicidal ideation: Plan: Patient has a history of schizophrenia and suicidal ideation in the past. Patient has long history of ingestion of foreign bodies, unclear if there is anything that can be done to mitigate this behavior in the future. - Psychiatry consulted - 1:1 in [facility] (5) DVT prophylaxis: Plan: SCDs - Low DVT risk per admission calculator Admission and Anticipated Discharge Date Admission Date: December 08, 2021 Subjective No abdominal pain today. Reports no fevers/chills, chest pain, shortness of breath, abdominal pain, nausea, or vomiting. Is hungry and would like to eat. Physical Exam Constitutional: WD/WN, vitals as above Eyes: EOM intact bilaterally; no conjunctival abnormality ENMT: external ear and nose normal, oropharynx normal Neck: trachea midline, no thyromegaly normal visual inspection Respiratory: normal respiratory effort, lungs clear to auscultation no respiratory distress Cardiovascular: RRR, no murmur, no edema Gastrointestinal (Abdomen): Inspection/Auscultation: abdomen normal to inspection; abdomen not distended Musculoskeletal: no cyanosis or clubbing, extremities motor strength 5/5 Skin: no rashes, warm and dry Neurologic: moves all extremities and awake Psychiatric: Orientation: alert, oriented to person and cooperative Results & Data Results & Data ([facility]) Vital Signs (Past 12 Hours) Vital Signs Temp Pulse Resp BP Pulse Ox 12/10/21 07:45 36.7 C 66 18 135/71 99 PG Care Time/CCT Total # of Minutes Spent Total Time Spent with Patient: Total time spent is greater than 50% in coordination of care (as documented) at patient's floor/unit and/or counseling patient: Coding Level of Care Code 94022 Subseq Hosp Care Lvl 2 Diagnoses Foreign body ingestion T18.9XXA Foreign body in urethra T19.0XXA Schizophrenia F20.9 Suicidal ideation R45.851 DVT prophylaxis Z29.9
[2021-12-10] MEDS: MIRTAZAPINE TAB 15 MG TAB PO SCH (21:04)
[2021-12-10] MEDS: PARoxetine HCL 20 MG TAB PO SCH (21:04)
[2021-12-10] MEDS: haloperidoL 5 MG TAB PO SCH (21:04)
--- NOTE | 2021-12-11 11:29 | Hospitalist Progress Note ---
Date of Service December 11, 2021 Assessment & Plan (1) Foreign body ingestion: Plan: Repeated intentional ingestions. - GI has been consulted - No plan for EGD. Can consider laxatives to speed passage per GI. - Follow with daily KUBs for passage - Passed 3 metal objects yesterday. No blood or pain with passage. One still present on KUB. No pain. Continue normal diet. (2) Foreign body in urethra: Plan: Removed on 12/08 by urology. (3) Schizophrenia: Plan: Psychiatry consulted. - Continue Haldol, mirtazapine, and Paxil (4) Suicidal ideation: Plan: Patient has a history of schizophrenia and suicidal ideation in the past. Patient has long history of ingestion of foreign bodies, unclear if there is anything that can be done to mitigate this behavior in the future. - Psychiatry consulted - 1:1 in snf (5) DVT prophylaxis: Plan: SCDs - Low DVT risk per admission calculator Admission and Anticipated Discharge Date Admission Date: December 08, 2021 Subjective Still feeling fine. Having BMs. Reports no fevers/chills, chest pain, shortness of breath, abdominal pain, nausea, or vomiting. Physical Exam Constitutional: WD/WN, vitals as above Eyes: EOM intact bilaterally; no conjunctival abnormality ENMT: external ear and nose normal, oropharynx normal Neck: trachea midline, no thyromegaly normal visual inspection Respiratory: normal respiratory effort, lungs clear to auscultation no respiratory distress Cardiovascular: RRR, no murmur, no edema Gastrointestinal (Abdomen): Inspection/Auscultation: abdomen normal to inspection; abdomen not distended Musculoskeletal: no cyanosis or clubbing, extremities motor strength 5/5 Skin: no rashes, warm and dry Neurologic: moves all extremities and awake Psychiatric: Orientation: alert, oriented to person and cooperative Results & Data Results & Data ([facility]) Vital Signs (Past 12 Hours) Vital Signs Temp Pulse Resp BP Pulse Ox 12/11/21 07:19 36.4 C L 65 16 90/51 L 96 PG Care Time/CCT Total # of Minutes Spent Total Time Spent with Patient: Total time spent is greater than 50% in coordination of care (as documented) at patient's floor/unit and/or counseling patient: Coding Level of Care Code 38004 Subseq Hosp Care Lvl 2 Diagnoses Foreign body ingestion T18.9XXA Foreign body in urethra T19.0XXA Schizophrenia F20.9 Suicidal ideation R45.851 DVT prophylaxis Z29.9
--- NOTE | 2021-12-11 12:57 | XRay Report ---
XR KUB/Abdomen 1 view CLINICAL HISTORY: Foreign body ingestion. COMPARISON STUDY: 12/10/2021 TECHNIQUE: 2 supine views of the abdomen FINDINGS: The bowel gas pattern is within normal limits without evidence for dilatation or obstruction. 2 radio paque foreign bodies are identified, one in the region of the splenic flexure which is linear and met allic. The second is in the region of the descending colon which has the appearance of a metallic sna p. There is no evidence for organomegaly or gross intra-abdominal mass. No abnormal calcifications ar e seen along the course of the urinary tracts bilaterally. No acute osseous pathology. IMPRESSION: 1. There are radiopaque foreign bodies are seen with no evidence for bowel loop dilatation or obstruc tion. ACT 112: Negative or not required by law. Electronically signed by: James Engel M.D. 12/11/2021 12:56 PM
[2021-12-11] MEDS: haloperidoL 5 MG TAB PO SCH (21:26)
[2021-12-11] MEDS: PARoxetine HCL 20 MG TAB PO SCH (21:27)
[2021-12-11] MEDS: MIRTAZAPINE TAB 15 MG TAB PO SCH (21:27)
--- NOTE | 2021-12-12 10:07 | XRay Report ---
XR KUB/Abdomen 1 view CLINICAL HISTORY: Follow foreign body ingestion. COMPARISON STUDY: 12/11/2021 TECHNIQUE: 2 supine radiographs were obtained. FINDINGS: The bowel gas pattern is within normal limits without evidence for dilatation or obstruction. There i s no evidence for organomegaly or gross intra-abdominal mass. No abnormal calcifications are seen walker ng the course of the urinary tracts bilaterally. No acute osseous pathology. IMPRESSION: 1. No acute intra-abdominal abnormality. 2. Previously identified foreign bodies are no longer seen. ACT 112: Negative or not required by law. Electronically signed by: James Engle M.D. 12/12/2021 10:06 AM
--- NOTE | 2021-12-12 17:56 | Discharge Summary ---
Date of Service December 12, 2021 Admission HPI Per Admitting Provider This is a 21-year-old male with past medical history of schizophrenia, multiple episodes of foreign body ingestion that presents today with another foreign body ingestion. Patient is an inmate at [facility]. He is accompanied by 3 group home guards and is in shackles in the room. Per ER documentation, he ingested 3-4 pieces of metal that he peeled off a gate when he was unsupervised. He also inserted an additional piece of metal into his urethra. He does complain of some abdominal discomfort which is in his lower abdomen. Also noted was some bloody stool. He did note to the ER PA that he was trying to commit suicide but he denied any suicidal thoughts when I asked. Patient has since eaten lunch earlier today. Principal Diagnosis Foreign body ingestion and insertion Discharge Exam Constitutional WD/WN, vitals as above Eyes EOM intact bilaterally; no conjunctival abnormality ENMT external ear and nose normal, oropharynx normal Neck trachea midline, no thyromegaly normal visual inspection Respiratory normal respiratory effort, lungs clear to auscultation no respiratory distress Cardiovascular RRR, no murmur, no edema Gastrointestinal (Abdomen) Inspection/Auscultation: abdomen normal to inspection; abdomen not distended Musculoskeletal no cyanosis or clubbing, extremities motor strength 5/5 Skin no rashes, warm and dry Neurologic moves all extremities and awake Psychiatric Orientation: alert, oriented to person and cooperative Discharge Data Allergies Allergy/AdvReac Type Severity Reaction Status Date / Time No Known Allergies Allergy Unverified 12/08/21 16:02 Consultations 12/08/21 15:15 ED Decision to Admit Stat 12/08/21 16:02 Consult Gastroenterology Routine Consult Psychiatry Routine Consult Urology Routine Procedures Performed Operation Date: 12/08/21 20:30 Actual Procedures p Cystoscopy, Foreign Body Removal(Not Applicable) - José Luis Burton DO Ordered Studies 12/08/21 13:28 CT abd pelvis wo con Stat CT chest diagnostic wo con Stat Hospital Course (1) Foreign body ingestion: Repeated intentional ingestions. - GI has been consulted - No plan for EGD. Can consider laxatives to speed passage per GI. - Followed with daily KUBs for passage - Passed 4 metal objects. KUB clear. No indication of perforation. (2) Foreign body in urethra: Removed on 12/08 by urology. No damage to urethra. (3) Schizophrenia: Psychiatry consulted. - Continue Haldol, mirtazapine, and Paxil (4) Suicidal ideation: Patient has a history of schizophrenia and suicidal ideation in the past. Patient has long history of ingestion of foreign bodies, unclear if there is anything that can be done to mitigate this behavior in the future. - Psychiatry consulted - 1:1 in group home (5) DVT prophylaxis: SCDs - Low DVT risk per admission calculator Total Time Total Time Spent Total Time Spent (In Minutes): 35 Discharge Plan Discharge Items Patient Disposition: [facility] Facility Reason For Visit: FOREIGN BODY INGESTION Discharge Diagnosis: Foreign body ingestion Condition on Discharge: Good Activity: Resume your previous activity Non-emergency contact: Primary Care Provider Call non-emergency contact if: your pain is not controlled Follow-up/Referrals: Kalyn ROBERSON [Primary Care Provider] - Diet: Regular Addtl Attending Provider Instructions: Mr. Simon inserted a metal object into his urethra and ingested 4 other metalic objects. The urethral object was removed by urology. No damage was noted on the cystoscopy, and he passed urine easily after that. The 4 ingested objects had passed past the stomach, so they were allowed to pass naturally. He had no bleeding or pain. KUB x-rays indicated no perforation or other complication. He was warned of the dangers of inserting metal objects into his penis and swallowing them. Psychiatry saw him while hospitalized and did not feel he posed a suicide risk and recommended no changes to his medication changes. Concern was for secondary gain of swallowing the objects. Pending Studies at Discharge: No Stand-Alone Forms: My [facility] Skilled Items Patient informed of condition?: Yes Discharge Level of Care: Other Communicable Disease: No Discharge Prognosis: Stable Lines: None Urinary Catheter: No Medications and DC Order Prescriptions: Continued mirtazapine 30 mg Tablet 30 mg PO HS RF: 0 paroxetine HCl 30 mg Tablet 30 mg PO HS RF: 0 haloperidol 5 mg Tablet 7.5 mg PO HS Qty: 30 RF: 0 Discharge Orders: Discharge Order (Routine); Ordered 12/12/21 Ordered By: Ezequiel Paiz Admission Data Admit Date/Time: 12/08/21 16:02 Attending Provider: Ezequiel Paiz Admit Provider: Rafael Osorio Primary Care Provider: Kalyn ROBERSON Other Providers: Allyssa Mazariegos ; Dotty Olivarez ; Amy Zamarripa ; Laurel Ray ; José Luis Burton ; Ezequiel Paiz. Other Interventions: Discharge Summary Assessment (RN) Last Done: 12/12/21 11:38 Coding Level of Care Code D/C DAY MANAGEMENT >30 MINS Diagnoses Foreign body ingestion T18.9XXA Foreign body in urethra T19.0XXA Schizophrenia F20.9 Suicidal ideation R45.851 DVT prophylaxis Z29.9
== END 2021-12-12 16:25 | DRG 699 ==
LOC: ED 13:01 → OR 20:08 → 3W 20:09 → SUATTDRO 20:09 → 3N 12-12 01:32

== ENCOUNTER 2022-02-01 15:04 | Inpatient (IN) ==
--- NOTE | 2022-02-01 15:12 | ED Triage Note ---
Date of Service February 01, 2022 History of Present Illness This patient was briefly evaluated while in triage. An abbreviated physical exam was performed. This patient is a 22-year-old Male with past medical history of schizophrenia, anxiety, depression, who presents to the ED for evaluation of rectal pain, reported to have been sticking pens and arturo up his rectum. From [facility]. Denies abdominal pain. Physical Exam CONSTITUTIONAL: No acute distress. Well appearing. RESPIRATORY: No tachypnea or respiratory distress. Equal expansion bilaterally. NEUROLOGIC: Alert and oriented X 4 with normal affect. Normal speech. Normal gait observed. Initial orders for labs and / or imaging were placed and patient was placed in the waiting area until a bed is available. Please see further documentation for the full ED course.
[2022-02-01 15:37] LABS: Appearance Urine Cloudy (Clear); Bacteria Urine Automated Negative (Negative); Bilirubin Urine Negative (Negative); Blood Urine 3+ (Negative); Color Urine Yellow; Glucose Urine UA Negative (Negative); Ketones Urine Negative (Negative); Leukocyte Esterase Urine 3+ (Negative); Nitrite Urine Negative (Negative); Protein Urine 2+ (Negative); Specific Gravity Urine 1.005 (1.000-1.030); Urobilinogen Urine Negative (Negative); WBC Urine Automated >30 /hpf (0-5); pH Urine 6.5 (4.5-7.5)
[2022-02-01 16:48] LABS: Basophils # (auto) 0.02 K/uL (0-0.2); Basophils % (auto) 0.3 %; Eosinophils # (auto) 0.03 K/uL (0-0.50); Eosinophils % (auto) 0.5 %; Hemoglobin 11.4 g/dl (14.0-18.0); Immature Granulocytes # (auto) 0.01 K/uL (0.00-0.02); Immature Granulocytes % (auto) 0.2 %; Lymphocytes # (auto) 1.02 K/uL (1.2-3.4); Lymphocytes % (auto) 16.5 %; Mean Corpuscular Hemoglobin 23.6 pg (25.0-34.0); Mean Corpuscular Hgb Conc 30.8 g/dL (32.0-36.0); Mean Corpuscular Volume 76.6 fL (80.0-100.0); Mean Platelet Volume 10.8 fL (9.4-12.4); Monocytes # (auto) 0.55 K/uL (0.24-0.82); Monocytes % (auto) 8.9 %; Neutrophils # (auto) 4.55 K/uL (1.4-6.5); Neutrophils % (auto) 73.6 %; Platelet Count 229 K/uL (130-400); RDW Coefficient of Variation 15.8 % (11.5-14.5); RDW Standard Deviation 43.1 fL (36.4-46.3); Red Blood Count 4.83 M/uL (4.63-6.08); White Blood Count 6.18 K/ul (4.8-10.8)
[2022-02-01 16:56] LABS: iSTAT Creatinine 1.2 mg/dl (0.6-1.3); iSTAT Hemoglobin 12.9 g/dl (14.0-18.0); iSTAT Ionized Calcium 1.15 mmol/l (1.12-1.32); iSTAT Potassium 3.7 mmol/L (3.3-5.0)
--- NOTE | 2022-02-01 17:02 | Emergency Department Note ---
History of Present Illness General Chief complaint: Rectal Pain Stated complaint: ANAL BLEEDING,FOREIGN BODY IN ANUS Time Seen by Provider: 02/01/22 16:16 History of Present Illness Provider complaint: Abdominal and rectal pain Onset (ago): day(s) 2 Maximum Pain Intensity: 2 22-year-old incarcerated male presents emergency department for abdominal rectal pain. Patient reports that he swallowed some things a few days ago as he usually does. He states it might of been stable or sometimes. He states he has been unable to pass them. He states he try to take the objects out of his rectum with his fingers but was unable to. Home Medications Medication Instructions Recorded Confirmed Type paroxetine HCl 30 mg tablet 30 mg PO HS 12/02/20 02/01/22 History mirtazapine 30 mg tablet 45 mg PO HS 11/21/21 02/01/22 History haloperidol 2 mg tablet 3 mg PO HS 12/25/21 02/01/22 History haloperidol 5 mg tablet 5 mg PO HS 12/25/21 02/01/22 History polyethylene glycol 3350 17 gram 17 g PO BID 02/01/22 02/01/22 History oral powder packet (Miralax) Allergies Allergy/AdvReac Type Severity Reaction Status Date / Time No Known Allergies Allergy Verified 02/01/22 17:50 Past Med/Surg History Medical History Anxiety Depression Foreign body in urethra H/O swallowed foreign body Schizophrenia Surgical History H/O esophagogastroduodenoscopy Social History Smoking Status: Never smoker Tobacco Type: Cigarettes Second Hand Exposure: No; Do You Dip or Chew Tobacco: No; Tobacco Cessation Education Requested by Patient: No Hx Alcohol Use: No Hx Substance Use: No Preferred Language: Mongolian Communication Ability: Effective Blueprint Developer Required: No Beliefs That Will Affect Care: None marital status: Single Current Living Situation: Other Current Living Situation Comment: [facility]. Other Information That Helps Us Care for You: No Feels Safe at Home: Yes Safety Concerns: Feels Safe At This Time Assistive Devices: None Review of Systems A total of 10 systems reviewed and were otherwise negative Physical Exam Vital Signs Vital Signs - 24 hr 02/01/22 15:08 02/01/22 16:34 02/01/22 17:42 Temperature 37.4 C Temperature Source Temporal Artery Scan Pulse Rate 100 H Pulse Rate [Finger] 90 Respiratory Rate 20 18 Respiratory Effort / Characteristics Non-Labored Non-Labored Respiratory Depth Normal Normal Blood Pressure 119/82 Blood Pressure [Right Arm] 154/80 H Blood Pressure Mean 94 Blood Pressure Mean [Right Arm] 104 Pulse Oximetry 98 99 98 Oxygen Delivery Method Room Air Room Air Room Air Sepsis Recent Fever Within 48 Hours No Sepsis New/Unexplained Change in Mental Status No Sepsis Action Taken by Nursing No Action Required Physical Exam GENERAL: Patient in handcuffs with police officers at bedside. HENT: Exam performed. - Head: Normocephalic and atraumatic. - Right Ear: External ear normal. No mastoid tenderness. - Left Ear: External ear normal. No mastoid tenderness. - Mouth/Throat: The oropharynx is clear and moist. No trismus in the jaw. No dental abscesses or uvula swelling. No oropharyngeal exudate or tonsillar abscesses. EYES: Conjunctivae and EOM are normal. Pupils are equal, round, and reactive to light. Right eye exhibits no discharge. Left eye exhibits no discharge. No scleral icterus. NECK: Normal range of motion. Neck supple. No JVD present. No spinous process tenderness present. No carotid bruit present. No rigidity. No tracheal deviation and normal range of motion present. No Brudzinski's sign and no Kernig's sign noted. CV: Normal rate, regular rhythm, normal heart sounds and intact distal pulses. T here is no peripheral edema. Palpable radial pulses bue. PULM/CHEST: Effort normal and breath sounds normal. No respiratory distress. No stridor. He has no wheezes. He has no rales. - Chest Wall: He exhibits no tenderness. ABD: The abdomen is soft. Bowel sounds are normal. He has no distension. No mass is present. There is no tenderness. There is no rebound, no guarding, no Pelaez's sign and no tenderness at McBurney's point. Rovsig negative. MUSC/SKEL: Normal range of motion. There is no peripheral edema, tenderness or deformity. LYMPH: No cervical adenopathy. NEURO: He is alert and oriented to person, place, and time. He has normal strength. No cranial nerve deficit or sensory deficit. Coordination and gait normal. GCS eye subscore is 4. GCS verbal subscore is 5. GCS motor subscore is 6. Cerebellar tests wnl. SKIN: Skin is warm and dry. He is not diaphoretic. PSYCH: Bizarre affect. Course Course 1616: The patient was evaluated in room B10. A complete history and physical exam was performed Cardiac monitoring: An order was placed for continuous cardiac monitoring. The monitor shows a rate of 80 with sinus rhythm 1800: Vital signs stable. CT imaging does show 2 foreign bodies in patient's rectum. Discussed with Dr. Wilfredo STARK on-call who states to admit to the medicine service and wait for the patient to pass the rectal foreign body. He states GoLytely can be given to the patient if desired. Dr. [facility] hospitalist aware of the patient. Administered Medications Haloperidol (Haloperidol 1 Mg Tab) 8 mg PO [facility] Stop: 03/03/22 20:59 Last Admin: 02/01/22 21:35 Dose: 8 mg Documented By: URSULA Mirtazapine (Mirtazapine Tab 15 Mg Tab) 45 mg PO [facility] Stop: 03/03/22 20:59 Last Admin: 02/01/22 21:35 Dose: 45 mg Documented By: URSULA Morphine Sulfate (Morphine Sulfate 2 Mg/Ml Carp) 2 mg IV Q3H PRN PRN Reason: Severe Pain Stop: 02/15/22 21:13 Last Admin: 02/01/22 21:36 Dose: 2 mg Documented By: URSULA Paroxetine HCl (Paroxetine Hcl 20 Mg Tab) 30 mg PO [facility] Stop: 03/03/22 20:59 Last Admin: 02/01/22 21:36 Dose: 30 mg Documented By: URSULA Discontinued Medications Ioversol (Optiray 320 100ml) 95 ml IV ONCE ONE Stop: 02/01/22 17:35 Last Admin: 02/01/22 17:35 Dose: 95 ml Documented By: JENNY Polyethylene Glycol/Electrolytes (Lavage Solution 4000ml) 16 dose PO TODAY@2100 [facility] Stop: 02/01/22 21:01 Last Admin: 02/01/22 21:35 Dose: 16 dose Documented By: URSULA Medical Decision Making Laboratory Data Result diagrams: 02/01/22 16:35 02/01/22 16:35 Lab Results 02/01/22 02/01/2202/01/22 Range/Units 15:15 16:35 16:35 WBC 6.18 (4.8-10.8) K/ul RBC 4.83 (4.63-6.08) M/uL Hgb 11.4 L (14.0-18.0) g/dl POC Hgb (14.0-18.0) g/dl Hct 37.0 L (40.1-51.0) % POC Hct (42-52) % MCV 76.6 L (80.0-100.0) fL MCH 23.6 L (25.0-34.0) pg MCHC 30.8 L (32.0-36.0) g/dL RDW Std Deviation 43.1 (36.4-46.3) fL RDW Coeff of Bassem 15.8 H (11.5-14.5) % Plt Count 229 (130-400) K/uL MPV 10.8 (9.4-12.4) fL Immature Gran % (Auto) 0.2 % Neut % (Auto) 73.6 % Lymph % (Auto) 16.5 % [place] % (Auto) 8.9 % Eos % (Auto) 0.5 % Baso % (Auto) 0.3 % Neut # (Auto) 4.55 (1.4-6.5) K/uL Lymph # (Auto) 1.02 L (1.2-3.4) K/uL [place] # (Auto) 0.55 (0.24-0.82) K/uL Eos # (Auto) 0.03 (0-0.50) K/uL Baso # (Auto) 0.02 (0-0.2) K/uL Immature Gran # (Auto) 0.01 (0.00-0.02) K/uL PT 11.2 (9.0-12.0) Seconds INR 1.1 (0.9-1.1) APTT 25.7 (21.0-31.0) Seconds PTT Ratio 0.9 POC Sodium (135-144) mmol/L Sodium (136-145) mmol/L POC Potassium (3.3-5.0) mmol/L Potassium (3.5-5.1) mmol/L POC Chloride (101-112) mmol/L Chloride (98-107) mmol/L Carbon Dioxide (21-32) mmol/L POC Total CO2 (24-31) mmol/L Anion Gap (3-11) POC Anion Gap (16-25) mmol/L POC BUN (7-18) mg/dl BUN (6-23) mg/dl Creatinine (0.6-1.4) mg/dl POC Creatinine (0.6-1.3) mg/dl Est Cr Clr Drug Dosing ml/min Est GFR ( Amer) ml/min Est GFR (Non-Af Amer) ml/min BUN/Creatinine Ratio (10-20) Glucose (70-99(Fasting)) mg/dl POC Glucose (other) (70-99) mg/dl Calcium (8.5-10.1) mg/dl POC Ioniz Calcium Dannie (1.12-1.32) mmol/l Urine Color Yellow Urine Appearance Cloudy A (Clear) Urine pH 6.5 (4.5-7.5) Ur Specific [place] 1.005 (1.000-1.030) Urine Protein 2+ H (Negative) Urine Glucose (UA) Negative (Negative) Urine Ketones Negative (Negative) Urine Blood 3+ H (Negative) Urine Nitrite Negative (Negative) Urine Bilirubin Negative (Negative) Urine Urobilinogen Negative (Negative) Ur Leukocyte Esterase 3+ H (Negative) Urine WBC (Auto) >30 H (0-5) /hpf Urine RBC (Auto) 10-30 H (0-4) /hpf U Hyaline Cast (Auto) 5-10 H (0-5) /lpf U Epithel Cells (Auto) 10-20 H (0-5) /lpf Urine Bacteria (Auto) Negative (Negative) SARS-CoV-2, RNA, NAAT (NEGATIVE) 02/01/22 02/01/22 02/01/22 Range/Units 16:35 16:35 16:41 WBC (4.8-10.8) K/ul RBC (4.63-6.08) M/uL Hgb (14.0-18.0) g/dl POC Hgb 12.9 L (14.0-18.0) g/dl Hct (40.1-51.0) % POC Hct 38 L (42-52) % MCV (80.0-100.0) fL MCH (25.0-34.0) pg MCHC (32.0-36.0) g/dL RDW Std Deviation (36.4-46.3) fL RDW Coeff of Bassem (11.5-14.5) % Plt Count (130-400) K/uL MPV (9.4-12.4) fL Immature Gran % (Auto) % Neut % (Auto) % Lymph % (Auto) % [place] % (Auto) % Eos % (Auto) % Baso % (Auto) % Neut # (Auto) (1.4-6.5) K/uL Lymph # (Auto) (1.2-3.4) K/uL [place] # (Auto) (0.24-0.82) K/uL Eos # (Auto) (0-0.50) K/uL Baso # (Auto) (0-0.2) K/uL Immature Gran # (Auto) (0.00-0.02) K/uL PT (9.0-12.0) Seconds INR (0.9-1.1) APTT (21.0-31.0) Seconds PTT Ratio POC Sodium 141 (135-144) mmol/L Sodium 138 (136-145) mmol/L POC Potassium 3.7 (3.3-5.0) mmol/L Potassium 3.7 (3.5-5.1) mmol/L POC Chloride 103 (101-112) mmol/L Chloride 104 (98-107) mmol/L Carbon Dioxide 27 (21-32) mmol/L POC Total CO2 26 (24-31) mmol/L Anion Gap 7 (3-11) POC Anion Gap 17.0 (16-25) mmol/L POC BUN 12 (7-18) mg/dl BUN 13 (6-23) mg/dl Creatinine 1.17 (0.6-1.4) mg/dl POC Creatinine 1.2 (0.6-1.3) mg/dl Est Cr Clr Drug Dosing 102.3 ml/min Est GFR ( Amer) 102.0 ml/min Est GFR (Non-Af Amer) 88.0 ml/min BUN/Creatinine Ratio 11.1 (10-20) Glucose 103 H (70-99(Fasting)) mg/dl POC Glucose (other) 108 H (70-99) mg/dl Calcium 9.1 (8.5-10.1) mg/dl POC Ioniz Calcium Dannie 1.15 (1.12-1.32) mmol/l Urine Color Urine Appearance (Clear) Urine pH (4.5-7.5) Ur Specific [place] (1.000-1.030) Urine Protein (Negative) Urine Glucose (UA) (Negative) Urine Ketones (Negative) Urine Blood (Negative) Urine Nitrite (Negative) Urine Bilirubin (Negative) Urine Urobilinogen (Negative) Ur Leukocyte Esterase (Negative) Urine WBC (Auto) (0-5) /hpf Urine RBC (Auto) (0-4) /hpf U Hyaline Cast (Auto) (0-5) /lpf U Epithel Cells (Auto) (0-5) /lpf Urine Bacteria (Auto) (Negative) SARS-CoV-2, RNA, NAAT NEGATIVE (NEGATIVE) Imaging Data Radiologist's Impression: Abdomen/Pelvis CT 02/01/22 16:[address] WITH IV CONTRAST CT DOSE: 766.50 mGy.cm HISTORY: rectal and ingested foreign body TECHNIQUE: Multiaxial CT images of the abdomen and pelvis were performed following the use of intravenous contrast. A dose lowering technique was utilized adhering to the principles of ALARA. COMPARISON STUDY: Abdomen and pelvis CT 01/10/2022. FINDINGS: There are trace bilateral pleural effusions. Evaluation of the abdomen and pelvis is near nondiagnostic due to the extensive metallic artifact from the patient's shackles. No definite pneumoperitoneum or pneumatosis. No acute fractures within the visualized osseous structures. Suture material again noted at the stomach. The liver, spleen, adrenal glands, and kidneys appear grossly unremarkable. The pancreas and gallbladder are obscured by the metallic artifact. The bladder is unremarkable. There were 2 adjacent linear radiopaque foreign bodies within the rectum which measure approximately 4 cm in length. No definite extraluminal gas or fluid collections to suggest a perforation at this time. No definite bowel wall thickening or obstruction. No evidence for acute appendicitis. IMPRESSION: 1. Near nondiagnostic evaluation of the abdomen and pelvis due to the metallic artifact from the patient's shackles. 2. There are 2 adjacent linear radiopaque foreign bodies within the rectum which measure approximately 4 cm in length. No evidence for perforation at this time. ACT 112: Negative or not required by law. Electronically signed by: Richard Aburto M.D. 02/01/2022 5:43 PM [facility] Narrative 1616: The patient was evaluated in room B10. A complete history and physical exam was performed Cardiac monitoring: An order was placed for continuous cardiac monitoring. The monitor shows a rate of 80 with sinus rhythm 1800: Vital signs stable. CT imaging does show 2 foreign bodies in patient's rectum. Discussed with Dr. Wilfredo STARK on-call who states to admit to the medicine service and wait for the patient to pass the rectal foreign body. He states GoLytely can be given to the patient if desired. Dr. [facility]val[facility] hospitalist aware of the patient. Impression & Plan Foreign body of rectum Discharge Plan Visit Data Chief Complaint: Rectal Pain Stated Complaint: ANAL BLEEDING,FOREIGN BODY IN ANUS ED Provider: Nicholas Almodovar Discharge Problem: Foreign body of rectum Patient Disposition: Admitted As Inpatient Discharge Instructions Interventions: ED Discharge Assessment Last Done: 02/01/22 19:44
[2022-02-01 17:09] LABS: INR 1.1 (0.9-1.1); Partial Thromboplastin Ratio 0.9; Partial Thromboplastin Time 25.7 Seconds (21.0-31.0); Prothrombin Time 11.2 Seconds (9.0-12.0)
[2022-02-01 17:10] LABS: BUN Creatinine Ratio 11.1 (10-20); Calcium 9.1 mg/dl (8.5-10.1); Creatinine Clr Calc Pharmacy 102.3 ml/min; Potassium 3.7 mmol/L (3.5-5.1)
--- NOTE | 2022-02-01 17:19 | History & Physical Report ---
Date of Service February 01, 2022 Assessment & Plan (1) Foreign body: Plan: Stefan is a 22-year-old male with a past medical history of schizophrenia, and repeated episodes of foreign body ingestion/foreign object placement antibody passages who presents with another episode of foreign body ingestion. Foreign body ingestion, rectal bleeding with attempted removal by patient Patient hemoglobin 11.4, prior baseline 11.6. Normotensive. No metabolic derangements, creatinine at baseline Hx of recurrent episodes, some with passage with laxatives/MgCit, last urology removal of foreign body 12/08/21, last colo w/ foreign body removal 12/04/21. Patient should remain in isolation with one-to-one observation at all times and no access to small/foreign objects. - CT-A/P: IMPRESSION: 1. Near nondiagnostic evaluation of the abdomen and pelvis due to the metallic artifact from the patient's shackles. 2. There are 2 adjacent linear radiopaque foreign bodies within the rectum which measure approximately 4 cm in length. No evidence for perforation at this time. Discussed with GI. Expectant management, GoLytely prep to silicate. No endoscopic intervention anticipated at this time. KUB in the morning Monitor stools for foreign body Schizophrenia with history of SI Past history of SI, long history of foreign body ingestion Psychiatry consulted. - [employer] on mirtazapine 30 mg p.o. nightly, Haldol 8 mg total nightly, paroxetine 30 mg p.o. nightly. Consideration of Haldol conversion to decanoate was recommended as outpatient, Haldol dose increases have been deferred in settings of acute ingestion due to potential for worsening of constipation. He currently remains on p.o. nightly Haldol 8 mg total Last EKG 11/2021 with QTC 433 Urethral discomfort Patient had had an episode of dysuria without reports of foreign body insertion at the urethra Was concerned for UTI in the setting of prior urologic intervention from foreign body insertion as noted above Patient was on Augmentin twice daily to be continued 02/01-01/2013 for empiric treatment of UTI UA With leukocyte esterase and blood, UC pending We will continue empiric Augmentin pending urinary cultures No urethral foreign body noted on CT, although was nearly nondiagnostic due to artifact as noted. KUB pending with repeat in the morning DVT prophylaxis: SCDs, defer pharmacal prophylaxis due to age, low risk, and recent bleeding Disposition: Medical surgical Diet: Clears with Nulytely prep CODE STATUS: Full code (2) Schizophrenia: (3) Foreign body ingestion: History of Present Illness Primary Care Provider: DA Aviles is a 22-year-old male with a past medical history of schizophrenia, and repeated episodes of foreign body ingestion/foreign object placement antibody passages who presents with another episode of foreign body ingestion. Patient reportedly swallowed several objects which may have included arturo which she has been unable to pass. Reports he has attempted to remove object from his rectum with fingers but was unable to, and had anal bleeding as a result. By ER in triage report patient initially reported he swallowed several objects which may have included arturo several days ago. Bedside evaluation patient reports he has not eaten anything and does not remember eating any foreign objec ts recently. Denies placing any foreign objects rectally, into the urethra, or swallowing recently. Does endorse that he has some rectal discomfort 3/[address] assessment. Aware that CT shows 2 linear radiopaque foreign bodies of about 4 cm, patient denies awareness of what these could be. Denies chest pain, chest pressure, shortness of breath, lightheadedness, dizziness, fever, chills, sweats. Denies urethral pain. Medical History: Reviewed. Discussed with [facility] Medications: Reviewed, discussed with [facility] Surgical History: Reviewed Allergies: Reviewed Social History: No current tobacco/alcohol use, is a [employer] inmate Code Status: Full code Allergies Allergy/AdvReac Type Severity Reaction Status Date / Time No Known Allergies Allergy Verified 02/01/22 17:50 Home Medications Medication Instructions Recorded Confirmed Type paroxetine HCl 30 mg tablet 30 mg PO HS 12/02/20 02/01/22 History mirtazapine 30 mg tablet 45 mg PO HS 11/21/21 02/01/22 History haloperidol 2 mg tablet 3 mg PO HS 12/25/21 02/01/22 History haloperidol 5 mg tablet 5 mg PO HS 12/25/21 02/01/22 History polyethylene glycol 3350 17 gram 17 g PO BID 02/01/22 02/01/22 History oral powder packet (Miralax) Past Med/Surg History Medical History Anxiety Depression Foreign body in urethra H/O swallowed foreign body Schizophrenia Surgical History H/O esophagogastroduodenoscopy Social History Smoking Status: Never smoker Tobacco Type: Cigarettes Second Hand Exposure: Yes; Hx Alcohol Use: No Hx Substance Use: No Preferred Language: Uzbek Communication Ability: Effective Ceramist Required: No Beliefs That Will Affect Care: None marital status: Single Current Living Situation: Other Current Living Situation Comment: [facility] Feels Safe at Home: Yes Assistive Devices: None Review of Systems Review of Systems: All systems reviewed & are unremarkable except as noted in Subjective Physical Exam Physical Exam: General: Oriented to name only. Poverty of speech with increased speech latency, no echolalia. Not responding to internal stimuli. In cuffs with hands in lap at time of assessment. HEENT: Atraumatic, normocephalic. Pulm: CTAB A&P. -wheezes, -rales, -rhonchi. Symmetrical chest rise. No increase in work of breathing. No respiratory distress. Cardiac: RRR, -mrg. Radial pulses intact and symmetrical. Abdominal: Nontender, nondistended, soft. BS present. Results & Data Results & Data ([facility]) Vital Signs (Past 12 Hours) Vital Signs Temp Pulse Resp BP Pulse Ox O2 Del Method 02/01/22 16:34 99 Room Air 02/01/22 15:08 37.4 C 100 H 20 119/82 98 Room Air PG Care Time/CCT Total # of Minutes Spent Total Time Spent with Patient: Total time spent is greater than 50% in coordination of care (as documented) at patient's floor/unit and/or counseling patient: Coding Level of Care Code INT OBSERVATION CARE 50M LVL 2 Diagnoses Foreign body Schizophrenia F20.0 Schizophrenia type: paranoid schizophrenia Foreign body ingestion T18.9XXA (1) Schizophrenia Schizophrenia type: paranoid schizophrenia Qualified Code(s): F20.0 - Paranoid schizophrenia
[2022-02-01] MEDS ORDERED: OPTIRAY 320 100ml IV ONE (17:34)
--- NOTE | 2022-02-01 17:46 | CT Scan Report ---
ABDOMEN AND PELVIS CT WITH IV CONTRAST CT DOSE: 766.50 mGy.cm HISTORY: rectal and ingested foreign body TECHNIQUE: Multiaxial CT images of the abdomen and pelvis were performed following the use of intrave nous contrast. A dose lowering technique was utilized adhering to the principles of ALARA. COMPARISON STUDY: Abdomen and pelvis CT 01/10/2022. FINDINGS: There are trace bilateral pleural effusions. Evaluation of the abdomen and pelvis is near n ondiagnostic due to the extensive metallic artifact from the patient's shackles. No definite pneumope ritoneum or pneumatosis. No acute fractures within the visualized osseous structures. Suture material again noted at the stomach. The liver, spleen, adrenal glands, and kidneys appear grossly unremarkab le. The pancreas and gallbladder are obscured by the metallic artifact. The bladder is unremarkable. There were 2 adjacent linear radiopaque foreign bodies within the rectum which measure approximately 4 cm in length. No definite extraluminal gas or fluid collections to suggest a perforation at this ti me. No definite bowel wall thickening or obstruction. No evidence for acute appendicitis. IMPRESSION: 1. Near nondiagnostic evaluation of the abdomen and pelvis due to the metallic artifact from the viri ent's shackles. 2. There are 2 adjacent linear radiopaque foreign bodies within the rectum which measure approximatel y 4 cm in length. No evidence for perforation at this time. ACT 112: Negative or not required by law. Electronically signed by: Richard Aburto M.D. 02/01/2022 5:43 PM
[2022-02-01] MEDS ORDERED: LAVAGE SOLUTION 4000ML PO SCH (21:00)
--- NOTE | 2022-02-01 21:17 | Communication Note ---
Date of Service: February 01, 2022 Messaged by nurse about 10/10 rectal pain. Reviewed chart; foreign body ingestion, CT showing foreign bodies in rectum. Ordering prn IV morphine 2mg q3h prn for severe pain.
[2022-02-01] MEDS: MIRTAZAPINE TAB 15 MG TAB PO SCH (21:35)
[2022-02-01] MEDS: haloperidoL 1 MG TAB PO SCH (21:35)
[2022-02-01] MEDS: PARoxetine HCL 20 MG TAB PO SCH (21:36)
[2022-02-01] MEDS: MoRPHine SULFATE 2 MG/ML CARP IV PRN (21:36)
[2022-02-02] MEDS: MoRPHine SULFATE 2 MG/ML CARP IV PRN ×6 (02:49→22:18)
[2022-02-02 07:24] LABS: Basophils # (auto) 0.02 K/uL (0-0.2); Basophils % (auto) 0.4 %; Eosinophils # (auto) 0.16 K/uL (0-0.50); Eosinophils % (auto) 3.4 %; Hematocrit (blood only) 36.4 % (40.1-51.0); Hemoglobin 11.3 g/dl (14.0-18.0); Immature Granulocytes # (auto) 0.01 K/uL (0.00-0.02); Immature Granulocytes % (auto) 0.2 %; Lymphocytes # (auto) 1.76 K/uL (1.2-3.4); Lymphocytes % (auto) 37.6 %; Mean Corpuscular Hemoglobin 23.6 pg (25.0-34.0); Mean Corpuscular Volume 76.2 fL (80.0-100.0); Mean Platelet Volume 11.4 fL (9.4-12.4); Monocytes # (auto) 0.51 K/uL (0.24-0.82); Monocytes % (auto) 10.9 %; Neutrophils # (auto) 2.22 K/uL (1.4-6.5); Neutrophils % (auto) 47.5 %; Platelet Count 229 K/uL (130-400); RDW Coefficient of Variation 15.9 % (11.5-14.5); RDW Standard Deviation 43.4 fL (36.4-46.3); Red Blood Count 4.78 M/uL (4.63-6.08); White Blood Count 4.68 K/ul (4.8-10.8)
[2022-02-02 07:54] LABS: BUN Creatinine Ratio 9.9 (10-20); Calcium 8.9 mg/dl (8.5-10.1); Creatinine Clr Calc Pharmacy 116.8 ml/min; Est GFR (African American) 108.7 ml/min; Est GFR (Non-African American) 93.8 ml/min; Potassium 3.8 mmol/L (3.5-5.1)
[2022-02-02] MEDS: AMOXICILLIN/CLAVULANATE 875 MG TAB PO SCH ×2 (08:07→16:42)
--- NOTE | 2022-02-02 08:41 | XRay Report ---
KUB HISTORY: foreign ingestion, ?urethral f. body, CT artifact COMPARISON: Abdomen and pelvis CT 02/01/2022. FINDINGS: The bowel gas pattern is unremarkable. There are no dilated loops of small bowel to suggest an obstruction. No renal calculi. No ureteral calculi. No pneumoperitoneum or pneumatosis. There ar e few linear metallic foreign bodies overlying the midline of the pelvis which correspond to the rect al foreign body seen on the prior CT examination. No metallic foreign bodies within the upper abdomen . IMPRESSION: No change in the radiopaque foreign bodies within the rectum. ACT 112: Negative or not required by law. Electronically signed by: Richard Aburto M.D. 02/02/2022 8:40 AM
--- NOTE | 2022-02-02 09:52 | XRay Report ---
KUB HISTORY: Foreign body ingestion foreign ingestion COMPARISON: KUB 02/01/2022 FINDINGS: Interval passage of the radiopaque foreign bodies of the rectum. Surgical suture material o f the abdominal left upper quadrant. There is a new radiopaque folded metallic wire device measuring approximately 3 cm in length projected over the stomach. No renal calculi. No ureteral calculi. No p neumoperitoneum or pneumatosis. No fracture. IMPRESSION: 1. Nonobstructive bowel gas pattern. 2. Interval passage of the opaque foreign bodies of the rectum. 3. There is a new 3 cm foreign body within the stomach. ACT 112: Negative or not required by law. The above report was generated using voice recognition software. It may contain grammatical, syntax o r spelling errors. Electronically signed by: Bernardino Rome M.D. 02/02/2022 9:50 AM
--- NOTE | 2022-02-02 10:45 | Communication Note ---
Date of Service: February 02, 2022 Patient is an inmate at [facility] admitted for foreign body ingestion. Reviewed his EKG which showed normal QTc from November 28, 2021 and reviewed labwork with normal Na+. Reviewed ordered psychiatric medications which appear appropriate and consistent with what he has been prescribed at [facility]. Guards providing 1-on-1 at bedside and can return to [facility] on suicide precautions pending further evaluation there. Please reconsult if acute management issue.
--- NOTE | 2022-02-02 11:48 | Gastrointestinal Consultation ---
Date of Consultation February 02, 2022 Assessment & Plan (1) Foreign body of rectum: (2) Foreign body ingestion: (3) Schizophrenia: Plan foreign body ingestion/placement in rectum with hx schizophrenia: has done this multiple times in the past, rectgal objects have passed out now. I suspect the new stomach object is artifact as there has been no new objects swallowed per my discussion with guards and patient. recs: repeat CT A/P today clear liquid diet for now, if CT clear can advance diet as tolerated psych eval and tx supportive care Thank you for allowing me to participate in the care of this patient History of Present Illness Attending Physician: Niru Alba MD History of Present Illness 22 yo male with hx schizophrenia and multiple episodes of foreign body ingestion here with foreign body placement in his rectum. two separate 4 cm objects were found on imaging in his rectum, he had been having trouble passing them but was given golytely overnight and they have now passed out of his rectum, I saw one of the objects and it is a 4 cm long plastic stick. Per my discussion with the guards and patient, he has not swallowed any new objects since being here at the hospital, this is relevant as a new object was possibly seen on stomach on KUB this morning, not seen on KUB or CT yesterday. Currently he feels better just has some mild epigastric pains. He is hungry and wants to eat, on clear liquid diet right now. He tells me the last time he swallowed an object was 1 month ago and that was a paper clip. CBC and CMP reviewed. Allergies Allergy/AdvReac Type Severity Reaction Status Date / Time No Known Allergies Allergy Verified 02/01/22 17:50 Home Medications Medication Instructions Recorded Confirmed Type paroxetine HCl 30 mg tablet 30 mg PO HS 12/02/20 02/01/22 History mirtazapine 30 mg tablet 45 mg PO HS 11/21/21 02/01/22 History haloperidol 2 mg tablet 3 mg PO HS 12/25/21 02/01/22 History haloperidol 5 mg tablet 5 mg PO HS 12/25/21 02/01/22 History polyethylene glycol 3350 17 gram 17 g PO BID 02/01/22 02/01/22 History oral powder packet (Miralax) Patient History Medical History Anxiety Depression Foreign body in urethra H/O swallowed foreign body Schizophrenia Surgical History H/O esophagogastroduodenoscopy Social History Smoking Status: Never smoker Tobacco Type: Cigarettes Second Hand Exposure: No; Do You Dip or Chew Tobacco: No; Tobacco Cessation Education Requested by Patient: No Hx Alcohol Use: No Hx Substance Use: No Preferred Language: Albanian Communication Ability: Effective Pen And Pencil Repairer Required: No Beliefs That Will Affect Care: None marital status: Single Current Living Situation: Other Current Living Situation Comment: [facility]. Other Information That Helps Us Care for You: No Feels Safe at Home: Yes Safety Concerns: Feels Safe At This Time Assistive Devices: None Review of Systems Constitutional: no fever and no chills Eyes: as per Subjective / HPI Ear, Nose, Mouth, Throat: as per Subjective / HPI Respiratory: no cough, no dyspnea and no dyspnea on exertion Cardiovascular: no chest pain and no dyspnea Gastrointestinal: as per Subjective / HPI Musculoskeletal: no joint pain and no swelling Integumentary: no rash and no lesions Neurologic: no numbness and no paresthesia Psychiatric: no depression and no anxiety Endocrine: no fatigue Hematologic / Lymphatic: no easy bleeding and no easy bruising Physical Exam Constitutional: WD/WN, vitals as above Eyes: EOM intact bilaterally Neck: normal visual inspection Respiratory: normal respiratory effort, lungs clear to auscultation Cardiovascular: RRR, no murmur, no edema Gastrointestinal (Abdomen): Inspection/Auscultation: abdomen normal to inspection and normal bowel sounds; abdomen not distended Percussion/Palpation: + abdomen tender (mild epigastric) and abdomen soft; no hepatosplenomegaly Musculoskeletal: Extremities: no cyanosis Gait: normal gait no lower extremity edema Skin: no rashes, warm and dry Neurologic: moves all extremities Psychiatric: A+Ox3, euthymic affect Results & Data ([facility]) Vital Signs (Past 12 Hours) Vital Signs Temp Pulse Resp BP Pulse Ox O2 Del Method 02/02/22 08:14 36.5 C 66 16 130/79 100 Room Air PG Care Time/CCT Total # of Minutes Spent Total Time Spent with Patient: Total time spent is greater than 50% in coordination of care (as documented) at patient's floor/unit and/or counseling patient: Coding Level of Care Code 32456 Inpt Consult Level 4 Diagnoses Foreign body of rectum T18.5XXA Foreign body ingestion T18.9XXA Schizophrenia F20.0 Schizophrenia type: paranoid schizophrenia (1) Schizophrenia Schizophrenia type: paranoid schizophrenia Qualified Code(s): F20.0 - Paranoid schizophrenia
--- NOTE | 2022-02-02 12:23 | CT Scan Report ---
ABDOMEN AND PELVIS CT WITHOUT CONTRAST CT DOSE: 297.94 mGy.cm HISTORY: Follow up study in a patient with foreign body ingestion follow up TECHNIQUE: Multiaxial CT images of the abdomen and pelvis were performed without contrast. A dose lo wering technique was utilized adhering to the principles of ALARA. COMPARISON STUDY: KUB of same day, CT abdomen and pelvis 02/01/2022 FINDINGS: Study is motion degraded it also limited without the use of contrast. Trace pleural effusio ns. Clear lung bases. No pneumatosis or pneumoperitoneum identified. The unenhanced spleen, pancreas and adrenal glands are unremarkable. Increased attenuation within the gallbladder may represent sludg e, cholelithiasis or vicarious excretion of contrast. Unremarkable liver. No renal calculi or hydronephrosis identified. Urinary bladder wall thickening with partial distentio n. No abdominal aortic aneurysm or lymphadenopathy identified. Postoperative changes of the stomach. The 3 cm reported metallic density foreign body has now progressed into the duodenum. Evaluation for extraluminal extension or wall thickening is limited secondary to the aforementioned fractures as abo ve. Mild rectal wall thickening with perirectal inflammation. No bowel obstruction or additional fore ign body identified. The appendix is not definitively seen. Unremarkable soft tissues. No acute fract ure. IMPRESSION: 1. Limited exam without the use of IV contrast and also secondary to motion artifact. 2. The 3 cm metallic foreign body which was within the stomach on this morning's KUB is now present w ithin the duodenum. No definitive extraluminal extension of the foreign body identified considering t he limitations as described above. 3. No bowel obstruction or pneumoperitoneum. 4. Mild rectal wall thickening with perirectal stranding is likely related to the recently passed rec geo foreign bodies. 5. Trace pleural effusions. ACT 112: Negative or not required by law. The above report was generated using voice recognition software. It may contain grammatical, syntax o r spelling errors. Electronically signed by: Bernardino Rome M.D. 02/02/2022 12:21 PM
--- NOTE | 2022-02-02 16:23 | Hospitalist Progress Note ---
Date of Service February 02, 2022 Assessment & Plan (1) Foreign body: Plan: Stefan is a 22-year-old male with a past medical history of schizophrenia, and repeated episodes of foreign body ingestion/foreign object placement antibody passages who presents with another episode of foreign body ingestion. Foreign body ingestion, rectal bleeding with attempted removal by patient Patient hemoglobin 11.4, prior baseline 11.6. Normotensive. No metabolic derangements, creatinine at baseline Hx of recurrent episodes, some with passage with laxatives/MgCit, last urology removal of foreign body 12/08/21, last colo w/ foreign body removal 12/04/21. Patient should remain in isolation with one-to-one observation at all times and no access to small/foreign objects. - Initial CT-A/P: IMPRESSION: 1. Near nondiagnostic evaluation of the abdomen and pelvis due to the metallic artifact from the patient's shackles. 2. There are 2 adjacent linear radiopaque foreign bodies within the rectum which measure approximately 4 cm in length. No evidence for perforation at this time. Discussed with GI. Expectant management, GoLytely prep to silicate. No endoscopic intervention anticipated at this time. Repeat CT shows passage of rectal forein bodies however, a 3cm mettalic body which was in the stomach in the earlier study, is now in the duodenum -Will repeat CT tomorrow Monitor stools for foreign body Schizophrenia with history of SI Past history of SI, long history of foreign body ingestion Psychiatry consulted. 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 nightly. Consideration of Haldol conversion to decanoate was recommended as outpatient, Haldol dose increases have been deferred in settings of acute ingestion due to potential for worsening of constipation. He currently remains on p.o. nightly Haldol 8 mg total Last EKG 11/2021 with QTC 433 Urethral discomfort Patient had had an episode of dysuria without reports of foreign body insertion at the urethra Was concerned for UTI in the setting of prior urologic intervention from foreign body insertion as noted above Patient was on Augmentin twice daily to be continued 02/01-01/2013 for empiric treatment of UTI UA With leukocyte esterase and blood, UC pending We will continue empiric Augmentin pending urinary cultures No urethral foreign body noted on CT, although was nearly nondiagnostic due to artifact as noted. KUB pending with repeat in the morning DVT prophylaxis: SCDs, defer pharmacal prophylaxis due to age, low risk, and recent bleeding Disposition: Medical surgical Diet: Clears with Nulytely prep CODE STATUS: Full code (2) Schizophrenia: (3) Foreign body ingestion: Admission and Anticipated Discharge Date Admission Date: February 01, 2022 Subjective patient seen and examined, says he wants to eat Review of Systems Review of Systems: All systems reviewed are negative, apart from the ones contained in the history. Physical Exam 2 Physical Exam: The patient is awake, alert and oriented 3, well developed and well nourished, normocephalic and atraumatic, lying in bed and in no acute distr ess. HEENT--PERRL, EOMI, mucous membranes and oropharynx mildly dry Neck--supple. No JVD. No bruits. Thyroid normal, trachea midline, no adenopathy. Heart--normal S1 and S2. No murmurs, rubs or gallops. Lungs--clear bilaterally, no respiratory distress, no accessory muscle use. Abdomen--normal bowel sounds and soft. Mild epigastric and left sided abdominal pain Extremities--no cyanosis or clubbing. No edema. Dermatologic--normal skin turgor, normal color, no abnormal lymph nodes, no rash. Neurologic--cranial nerves II through XII grossly intact. Rheumatologic--normal range of motion. Psychiatric--normal affect. Results & Data Results & Data ([facility]) Vital Signs (Past 12 Hours) Vital Signs Temp Pulse Resp BP Pulse Ox O2 Del Method 02/02/22 14:44 97.9 F 70 16 124/75 99 Room Air 02/02/22 08:14 97.7 F 66 16 130/79 100 Room Air PG Care Time/CCT Total # of Minutes Spent Total Time Spent with Patient: Total time spent is greater than 50% in coordination of care (as documented) at patient's floor/unit and/or counseling patient: Coding Level of Care Code 91192 Subseq Hosp Care Lvl 2 Diagnoses Foreign body Schizophrenia F20.0 Schizophrenia type: paranoid schizophrenia Foreign body ingestion T18.9XXA Time Spent (min) 35 (1) Schizophrenia Schizophrenia type: paranoid schizophrenia Qualified Code(s): F20.0 - Paranoid schizophrenia
[2022-02-02] MEDS: MIRTAZAPINE TAB 15 MG TAB PO SCH (20:57)
[2022-02-02] MEDS: haloperidoL 1 MG TAB PO SCH (20:58)
[2022-02-02] MEDS: PARoxetine HCL 20 MG TAB PO SCH (20:59)
[2022-02-03] MEDS: MoRPHine SULFATE 2 MG/ML CARP IV PRN ×5 (05:53→21:38)
[2022-02-03] MEDS: AMOXICILLIN/CLAVULANATE 875 MG TAB PO SCH (08:19)
--- NOTE | 2022-02-03 10:33 | Gastroenterology Progress Note ---
Date of Service February 03, 2022 Assessment & Plan (1) Foreign body of rectum: (2) Foreign body ingestion: Plan: Patient is a 23 years old female who was admitted for foreign body placed in the rectum area, which had passed over the weekend. He will have repeat CT abdomen and pelvis this morning to reevaluate location of the foreign body ingested few months ago which he reports is a paperclip. Last location noted in CT scan yesterday was in the duodenum area. His abd exam is benign today and he's eating solid meals. No plans for endoscopy at this time though will f/u on CT scan results. Recall GI prn Admission and Anticipated Discharge Date Admission Date: February 01, 2022 Supervising Physician Co-Signing Physician Notes I have personally seen and examined the patient with JONA Cartagena. Her note reflects my exam and findings. I agree with her impression and plan. Pt denies abdominal pain. Await CT results. Claudio Shrestha M.D. Subjective Patient denies abdominal pain, nausea or vomiting. Is passing flatus. He is eating solid breakfast without any issues. CT abdomen and pelvis ordered this morning to reevaluate foreign body that was last seen in the duodenum area. Patient reports that he swallowed months ago. Foreign bodies in the rectum area have passed. Review of Systems Review of Systems: All systems reviewed & are unremarkable except as noted in HPI & below Physical Exam Constitutional: WD/WN, vitals as above well groomed, cooperative and comfortable Eyes: PERRL, conjunctivae normal, anicteric sclerae ENMT: external ear and nose normal, oropharynx normal Respiratory: normal respiratory effort, lungs clear to auscultation Cardiovascular: RRR, no murmur, no edema Gastrointestinal (Abdomen): normal bowel sounds, soft, nontender, no hepatosplenomegaly Skin: no rashes, warm and dry no jaundice Psychiatric: A+Ox3, euthymic affect Lymphatic: no lymphedema Results & Data ([facility]) Vital Signs (Past 12 Hours) Vital Signs Temp Pulse Resp BP Pulse Ox O2 Del Method 02/03/22 08:11 36.6 C 69 16 125/86 99 Room Air
--- NOTE | 2022-02-03 12:55 | CT Scan Report ---
ABDOMEN AND PELVIS CT WITHOUT CONTRAST CT DOSE: 300.22 mGy.cm HISTORY: Follow up study in a patient with serial foreign body ingestion follow up TECHNIQUE: Multiaxial CT images of the abdomen and pelvis were performed without contrast. A dose lo wering technique was utilized adhering to the principles of ALARA. COMPARISON STUDY: CT abdomen and pelvis 02/02/2022 FINDINGS: Study is motion degraded it also limited without the use of contrast. Small pleural effusio ns. Clear lung bases. No pneumatosis or pneumoperitoneum identified. The unenhanced spleen, pancreas and adrenal glands are unremarkable. Increased attenuation within the gallbladder may represent sludg e, cholelithiasis or vicarious excretion of contrast. Unremarkable liver. No renal calculi or hydronephrosis identified. Urinary bladder wall thickening with partial distentio n. No abdominal aortic aneurysm or lymphadenopathy identified. Postoperative changes of the stomach. The 3 cm metallic density foreign body has now progressed into the cecum. There is mild tenting of th e posterior cecal wall without evidence of wall perforation. There is decreased rectal wall thickenin g with perirectal stranding. No bowel obstruction or additional foreign body identified. Moderate fec al retention. The appendix appears to be retrocecal and noninflamed, however is not visualized in its entirety. Unremarkable soft tissues. No acute fracture. IMPRESSION: 1. Interval progression of the 3 cm metallic foreign body which is now present within the cecum. Rath er than follow-up daily CT examinations, serial follow-up with KUB radiographs is recommended. 2. No pneumoperitoneum to suggest bowel perforation. 3. No bowel obstruction. 4. Small pleural effusions. ACT 112: Negative or not required by law. The above report was generated using voice recognition software. It may contain grammatical, syntax o r spelling errors. Electronically signed by: Bernardino Rome M.D. 02/03/2022 12:53 PM
[2022-02-03] MEDS: ACETAMINOPHEN 325 MG TAB PO PRN ×2 (14:30→20:24)
--- NOTE | 2022-02-03 15:26 | Hospitalist Progress Note ---
Date of Service February 03, 2022 Assessment & Plan (1) Foreign body: Plan: Stefan is a 22-year-old male with a past medical history of schizophrenia, and repeated episodes of foreign body ingestion/foreign object placement antibody passages who presents with another episode of foreign body ingestion. Foreign body ingestion, rectal bleeding with attempted removal by patient Patient hemoglobin 11.4, prior baseline 11.6. Normotensive. No metabolic derangements, creatinine at baseline Hx of recurrent episodes, some with passage with laxatives/MgCit, last urology removal of foreign body 12/08/21, last colo w/ foreign body removal 12/04/21. Patient should remain in isolation with one-to-one observation at all times and no access to small/foreign objects. - Initial CT-A/P: IMPRESSION: 1. Near nondiagnostic evaluation of the abdomen and pelvis due to the metallic artifact from the patient's shackles. 2. There are 2 adjacent linear radiopaque foreign bodies within the rectum which measure approximately 4 cm in length. No evidence for perforation at this time. Discussed with GI. Expectant management, GoLytely prep to silicate. No endoscopic intervention anticipated at this time. Repeat CT shows passage of rectal forein bodies however, a 3cm mettalic body which was in the stomach in the earlier study, is now in the duodenum -CT today, 02/03 shows Interval progression of the 3 cm metallic foreign body which is now present within the cecum. Will follow up with KUB tomorrow. Monitor stools for foreign body Schizophrenia with history of SI Past history of SI, long history of foreign body ingestion Psychiatry consulted. 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 nightly. Consideration of Haldol conversion to decanoate was recommended as outpatient, Haldol dose increases have been deferred in settings of acute ingestion due to potential for worsening of constipation. He currently remains on p.o. nightly Haldol 8 mg total Last EKG 11/2021 with QTC 433 Urethral discomfort Patient had had an episode of dysuria without reports of foreign body insertion at the urethra Was concerned for UTI in the setting of prior urologic intervention from foreign body insertion as noted above Patient was on Augmentin twice daily to be continued 02/01-01/2013 for empiric treatment of UTI UA With leukocyte esterase and blood, UA shows group g beta Stop Augmentin, start Amoxiccilin DVT prophylaxis: SCDs, defer pharmacal prophylaxis due to age, low risk, and recent bleeding Disposition: Medical surgical Diet: Clears with Nulytely prep CODE STATUS: Full code (2) Schizophrenia: (3) Foreign body ingestion: Admission and Anticipated Discharge Date Admission Date: February 01, 2022 Subjective patient seen and examined, no new complains Review of Systems Review of Systems: All systems reviewed are negative, apart from the ones contained in the history. Physical Exam Physical Exam: The patient is awake, alert and oriented 3, well developed and well nourished, normocephalic and atraumatic, lying in bed and in no acute distress. HEENT--PERRL, EOMI, mucous membranes and oropharynx mildly dry Neck--supple. No JVD. No bruits. Thyroid normal, trachea midline, no adenopathy. Heart--normal S1 and S2. No murmurs, rubs or gallops. Lungs--clear bilaterally, no respiratory distress, no accessory muscle use. Abdomen--normal bowel sounds and soft. Mild epigastric and left sided abdominal pain Extremities--no cyanosis or clubbing. No edema. Dermatologic--normal skin turgor, normal color, no abnormal lymph nodes, no rash. Neurologic--cranial nerves II through XII grossly intact. Rheumatologic--normal range of motion. Psychiatric--normal affect. Results & Data Results & Data ([facility]) Vital Signs (Past 12 Hours) Vital Signs Temp Pulse Resp BP Pulse Ox O2 Del Method 02/03/22 08:11 97.9 F 69 16 125/86 99 Room Air PG Care Time/CCT Total # of Minutes Spent Total Time Spent with Patient: Total time spent is greater than 50% in coordination of care (as documented) at patient's floor/unit and/or counseling patient: Coding Level of Care Code 10948 Subseq Hosp Care Lvl 2 Diagnoses Foreign body Schizophrenia F20.0 Schizophrenia type: paranoid schizophrenia Foreign body ingestion T18.9XXA Time Spent (min) 35 (1) Schizophrenia Schizophrenia type: paranoid schizophrenia Qualified Code(s): F20.0 - Paranoid schizophrenia
[2022-02-03] MEDS: MIRTAZAPINE TAB 15 MG TAB PO SCH (20:22)
[2022-02-03] MEDS: AMOXICILLIN 500 MG CAP PO SCH (20:22)
[2022-02-03] MEDS: haloperidoL 1 MG TAB PO SCH (20:22)
[2022-02-03] MEDS: PARoxetine HCL 20 MG TAB PO SCH (20:23)
--- NOTE | 2022-02-04 09:28 | XRay Report ---
XR KUB/Abdomen 1 view CLINICAL HISTORY: follow up TECHNIQUE: 1 view of the abdomen was obtained. Comparison: Comparison is made to abdomen radiograph 02/02/2022 FINDINGS: Lung bases are unremarkable. The osseous structures are grossly unremarkable. The bowel gas pattern i s nonobstructive. Previously noted metallic foreign bodies are now in the left pelvis. IMPRESSION: Previously noted metallic foreign bodies are now in the left pelvis. ACT 112: Negative or not required by law. Electronically signed by: Shlomo Rose M.D. 02/04/2022 9:27 AM
[2022-02-04] MEDS: AMOXICILLIN 500 MG CAP PO SCH ×2 (09:49→20:19)
[2022-02-04] MEDS: MoRPHine SULFATE 2 MG/ML CARP IV PRN ×4 (09:49→19:47)
--- NOTE | 2022-02-04 15:14 | Hospitalist Progress Note ---
Date of Service February 04, 2022 Assessment & Plan (1) Foreign body: Plan: Stefan is a 22-year-old male with a past medical history of schizophrenia, and repeated episodes of foreign body ingestion/foreign object placement antibody passages who presents with another episode of foreign body ingestion. Foreign body ingestion, rectal bleeding with attempted removal by patient Patient hemoglobin 11.4, prior baseline 11.6. Normotensive. No metabolic derangements, creatinine at baseline Hx of recurrent episodes, some with passage with laxatives/MgCit, last urology removal of foreign body 12/08/21, last colo w/ foreign body removal 12/04/21. Patient should remain in isolation with one-to-one observation at all times and no access to small/foreign objects. - Initial CT-A/P: IMPRESSION: 1. Near nondiagnostic evaluation of the abdomen and pelvis due to the metallic artifact from the patient's shackles. 2. There are 2 adjacent linear radiopaque foreign bodies within the rectum which measure approximately 4 cm in length. No evidence for perforation at this time. Discussed with GI. Expectant management, GoLytely prep to silicate. No endoscopic intervention anticipated at this time. Repeat CT shows passage of rectal foreign bodies however, a 3cm metallic body which was in the stomach in the earlier study, is now in the duodenum -CT on 02/03 shows Interval progression of the 3 cm metallic foreign body which is now present within the cecum. - KUB 02/04 shows metallic foreign object now in the left pelvis Monitor stools for foreign body Schizophrenia with history of SI Past history of SI, long history of foreign body ingestion Psychiatry consulted. 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 nightly. Consideration of Haldol conversion to decanoate was recommended as outpatient, Haldol dose increases have been deferred in settings of acute ingestion due to potential for worsening of constipation. He currently remains on p.o. nightly Haldol 8 mg total Last EKG 11/2021 with QTC 433 Urethral discomfort Patient had had an episode of dysuria without reports of foreign body insertion at the urethra Was concerned for UTI in the setting of prior urologic intervention from foreign body insertion as noted above Patient was on Augmentin twice daily to be continued 02/01-01/2013 for empiric treatment of UTI UA With leukocyte esterase and blood, UA shows group g beta Stop Augmentin, start Amoxiccilin DVT prophylaxis: SCDs, defer pharmacal prophylaxis due to age, low risk, and recent bleeding Disposition: Medical surgical Diet: Clears with Nulytely prep CODE STATUS: Full code (2) Schizophrenia: (3) Foreign body ingestion: Admission and Anticipated Discharge Date Admission Date: February 01, 2022 Subjective patient seen and examined, no new complains Review of Systems Review of Systems: All systems reviewed are negative, apart from the ones contained in the history. Physical Exam Physical Exam: The patient is awake, alert and oriented 3, well developed and well nourished, normocephalic and atraumatic, lying in bed and in no acute distress. HEENT--PERRL, EOMI, mucous membranes and oropharynx mildly dry Neck--supple. No JVD. No bruits. Thyroid normal, trachea midline, no adenopathy. Heart--normal S1 and S2. No murmurs, rubs or gallops. Lungs--clear bilaterally, no respiratory distress, no accessory muscle use. Abdomen--normal bowel sounds and soft. Mild epigastric and left sided abdominal pain Extremities--no cyanosis or clubbing. No edema. Dermatologic--normal skin turgor, normal color, no abnormal lymph nodes, no rash. Neurologic--cranial nerves II through XII grossly intact. Rheumatologic--normal range of motion. Psychiatric--normal affect. Results & Data Results & Data ([facility]) Vital Signs (Past 12 Hours) Vital Signs Pulse Resp BP Pulse Ox O2 Del Method 02/04/22 09:54 95 H 16 147/78 H 99 Room Air PG Care Time/CCT Total # of Minutes Spent Total Time Spent with Patient: Total time spent is greater than 50% in coordination of care (as documented) at patient's floor/unit and/or counseling patient: Coding Level of Care Code 18462 Subseq Hosp Care Lvl 2 Diagnoses Foreign body Schizophrenia F20.0 Schizophrenia type: paranoid schizophrenia Foreign body ingestion T18.9XXA Time Spent (min) 35 (1) Schizophrenia Schizophrenia type: paranoid schizophrenia Qualified Code(s): F20.0 - Paranoid schizophrenia
[2022-02-04] MEDS: MIRTAZAPINE TAB 15 MG TAB PO SCH (20:18)
[2022-02-04] MEDS: haloperidoL 1 MG TAB PO SCH (20:19)
[2022-02-04] MEDS: PARoxetine HCL 20 MG TAB PO SCH (20:19)
[2022-02-05] MEDS: MoRPHine SULFATE 2 MG/ML CARP IV PRN ×4 (09:02→19:59)
[2022-02-05] MEDS: AMOXICILLIN 500 MG CAP PO SCH ×2 (09:06→20:02)
--- NOTE | 2022-02-05 13:47 | XRay Report ---
KUB CLINICAL HISTORY: Follow-up foreign body. COMPARISON STUDY: CT of the abdomen and pelvis February 03, 2022. KUB February 04, 2022. FINDINGS: A 3.6 cm linear metallic density projects over the rectum. A 2.4 cm linear density projects over the left upper quadrant. This could be within the splenic flexure of the colon, small bowel or the stomach. There is no evidence for a bowel obstruction. IMPRESSION: 1. 3.6 cm linear metallic density consistent with a foreign body within the rectum. 2. 2.4 cm metallic density which projects over left upper quadrant. This represents a foreign body wh ich could be within the splenic flexure of the colon, stomach or small bowel. ACT 112: Negative or not required by law. Electronically signed by: Layton Liu M.D. 02/05/2022 1:46 PM
--- NOTE | 2022-02-05 15:27 | Hospitalist Progress Note ---
Date of Service February 05, 2022 Assessment & Plan (1) Foreign body: Plan: Stefan is a 22-year-old male with a past medical history of schizophrenia, and repeated episodes of foreign body ingestion/foreign object placement antibody passages who presents with another episode of foreign body ingestion. Foreign body ingestion, rectal bleeding with attempted removal by patient Patient hemoglobin 11.4, prior baseline 11.6. Normotensive. No metabolic derangements, creatinine at baseline Hx of recurrent episodes, some with passage with laxatives/MgCit, last urology removal of foreign body 12/08/21, last colo w/ foreign body removal 12/04/21. Patient should remain in isolation with one-to-one observation at all times and no access to small/foreign objects. - Initial CT-A/P: IMPRESSION: 1. Near nondiagnostic evaluation of the abdomen and pelvis due to the metallic artifact from the patient's shackles. 2. There are 2 adjacent linear radiopaque foreign bodies within the rectum which measure approximately 4 cm in length. No evidence for perforation at this time. Discussed with GI. Expectant management, GoLytely prep to silicate. No endoscopic intervention anticipated at this time. Repeat CT shows passage of rectal foreign bodies however, a 3cm metallic body which was in the stomach in the earlier study, is now in the duodenum -CT on 02/03 shows Interval progression of the 3 cm metallic foreign body which is now present within the cecum. - KUB 02/04 shows metallic foreign object now in the left pelvis -KUB 02/05 shows 2 metallic objects, one in the rectum and the other in the splenic flexture Monitor stools for foreign body Schizophrenia with history of SI Past history of SI, long history of foreign body ingestion Psychiatry consulted. 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 nightly. Consideration of Haldol conversion to decanoate was recommended as outpatient, Haldol dose increases have been deferred in settings of acute ingestion due to potential for worsening of constipation. He currently remains on p.o. nightly Haldol 8 mg total Last EKG 11/2021 with QTC 433 Urethral discomfort Patient had had an episode of dysuria without reports of foreign body insertion at the urethra Was concerned for UTI in the setting of prior urologic intervention from foreign body insertion as noted above Patient was on Augmentin twice daily to be continued 02/01-01/2013 for empiric treatment of UTI UA With leukocyte esterase and blood, UA shows group g beta Stop Augmentin, start Amoxiccilin DVT prophylaxis: SCDs, defer pharmacal prophylaxis due to age, low risk, and recent bleeding Disposition: Medical surgical Diet: Clears with Nulytely prep CODE STATUS: Full code (2) Schizophrenia: (3) Foreign body ingestion: Admission and Anticipated Discharge Date Admission Date: February 04, 2022 Subjective patient seen and examined, no new complains Review of Systems Review of Systems: All systems reviewed are negative, apart from the ones contained in the history. Physical Exam Physical Exam: The patient is awake, alert and oriented 3, well developed and well nourished, normocephalic and atraumatic, lying in bed and in no acute distress. HEENT--PERRL, EOMI, mucous membranes and oropharynx mildly dry Neck--supple. No JVD. No bruits. Thyroid normal, trachea midline, no adenopathy. Heart--normal S1 and S2. No murmurs, rubs or gallops. Lungs--clear bilaterally, no respiratory distress, no accessory muscle use. Abdomen--normal bowel sounds and soft. Mild epigastric and left sided abdominal pain Extremities--no cyanosis or clubbing. No edema. Dermatologic--normal skin turgor, normal color, no abnormal lymph nodes, no rash. Neurologic--cranial nerves II through XII grossly intact. Rheumatologic--normal range of motion. Psychiatric--normal affect. Results & Data Results & Data ([facility]) Vital Signs (Past 12 Hours) Vital Signs Temp Pulse Resp BP Pulse Ox O2 Del Method 02/05/22 08:08 97.9 F 67 14 118/67 99 Room Air PG Care Time/CCT Total # of Minutes Spent Total Time Spent with Patient: Total time spent is greater than 50% in coordination of care (as documented) at patient's floor/unit and/or counseling patient: Coding Level of Care Code 69536 Subseq Hosp Care Lvl 2 Diagnoses Foreign body Schizophrenia F20.0 Schizophrenia type: paranoid schizophrenia Foreign body ingestion T18.9XXA Time Spent (min) 35 (1) Schizophrenia Schizophrenia type: paranoid schizophrenia Qualified Code(s): F20.0 - Paranoid schizophrenia
[2022-02-05] MEDS: MIRTAZAPINE TAB 15 MG TAB PO SCH (20:01)
[2022-02-05] MEDS: PARoxetine HCL 20 MG TAB PO SCH (20:01)
[2022-02-05] MEDS: haloperidoL 1 MG TAB PO SCH (20:03)
[2022-02-06] MEDS: MoRPHine SULFATE 2 MG/ML CARP IV PRN ×3 (09:41→14:17)
[2022-02-06] MEDS: AMOXICILLIN 500 MG CAP PO SCH (09:44)
--- NOTE | 2022-02-06 13:49 | XRay Report ---
XR KUB/Abdomen 1 view CLINICAL HISTORY: assess foreign bodies TECHNIQUE: 1 view of the abdomen was obtained. Comparison: Comparison is made to abdomen radiograph 02/05/2022 FINDINGS: A linear foreign body is in the left upper quadrant, similar in position to prior exam. A separate li near foreign body is seen in the pelvis, also unchanged. The osseous structures are grossly unremarka ble. The bowel gas pattern is nonobstructive. A moderate amount of stool is noted within the large allen wel. IMPRESSION: Interval stability of metallic densities projecting over the rectum and splenic flexure. Bowel gas pa ttern is nonobstructive. ACT 112: Negative or not required by law. Electronically signed by: Shlomo Rose M.D. 02/06/2022 1:48 PM
--- NOTE | 2022-02-06 15:13 | Discharge Summary ---
Date of Service February 06, 2022 Admission HPI Per Admitting Provider Stefan is a 22-year-old male with a past medical history of schizophrenia, and repeated episodes of foreign body ingestion/foreign object placement antibody passages who presents with another episode of foreign body ingestion. Patient reportedly swallowed several objects which may have included arturo which she has been unable to pass. Reports he has attempted to remove object from his rectum with fingers but was unable to, and had anal bleeding as a result. By ER in triage report patient initially reported he swallowed several objects which may have included arturo several days ago. Bedside evaluation patient reports he has not eaten anything and does not remember eating any foreign objects recently. Denies placing any foreign objects rectally, into the urethra, or swallowing recently. Does endorse that he has some rectal discomfort 3/10 at assessment. Aware that CT shows 2 linear radiopaque foreign bodies of about 4 cm, patient denies awareness of what these could be. Denies chest pain, chest pressure, shortness of breath, lightheadedness, dizziness, fever, chills, sweats. Denies urethral pain. Medical History: Reviewed. Discussed with [facility] Medications: Reviewed, discussed with [facility] Surgical History: Reviewed Allergies: Reviewed Social History: No current tobacco/alcohol use, is a [employer] inmate Code Status: Full code Principal Diagnosis Foreign body ingestion, rectal bleeding, UTI Discharge Exam Vitals reviewed Gen: [AAOx3, NAD, flat affect] HEENT: [anicteric sclerae, EOMI] CV: [RRR no mgr nl S1S2] Pulm: [CTAB no wcr] Abd: [+BS soft not tender with deep palpation with stethoscope but then had +TTP with palpation with hands, ND no masses or hernias] Ext: [no edema] Skin: [no rashes, warm/dry] Neuro: [full strength throughout] Discharge Data Allergies Allergy/AdvReac Type Severity Reaction Status Date / Time No Known Allergies Allergy Verified 02/01/22 17:50 Consultations 02/01/22 18:00 ED Decision to Admit Stat 02/02/22 08:04 Consult Gastroenterology Routine Ordered Studies 02/01/22 16:16 CT abd pelvis IV con only Stat 02/02/22 11:16 CT Abd and Pelvis [CT abd pelvis wo con] Routine 02/03/22 08:30 CT Abd and Pelvis [CT abd pelvis wo con] Routine Hospital Course (1) Foreign body: Stefan is a 22-year-old male with a past medical history of schizophrenia, and repeated episodes of foreign body ingestion/foreign object placement antibody passages who presents with another episode of foreign body ingestion. Foreign body ingestion, rectal bleeding with attempted removal by patient hgb remained stable Seen by GI, no scopes indicated repeat CTs and KUBs show progression of 2 foreign bodies and others passed while he was here no evidence of perforation, obstruction, or peritonitis Pt is taking morphine around the clock which I stopped on the day of discharge as this was worsening constipation and was felt to be unnecessary as no reason for him to have pain other than constipation -was not given any laxatives--> started senna/docusate and Miralax daily dc to correction and obtain serial KUBs at correction as per my d/w GI LIDA Tafoya--> correction PA is able to order these Hx of recurrent episodes, some with passage with laxatives/MgCit, last urology removal of foreign body 12/08/21, last colo w/ foreign body removal 12/04/21. Patient should remain in isolation with one-to-one observation at all times and no access to small/foreign objects. - Initial CT-A/P: IMPRESSION: 1. Near nondiagnostic evaluation of the abdomen and pelvis due to the metallic artifact from the patient's shackles. 2. There are 2 adjacent linear radiopaque foreign bodies within the rectum which measure approximately 4 cm in length. No evidence for perforation at this time. Repeat CT shows passage of rectal foreign bodies however, a 3cm metallic body which was in the stomach in the earlier study, is now in the duodenum -CT on 02/03 shows Interval progression of the 3 cm metallic foreign body which is now present within the cecum. - KUB 02/04 shows metallic foreign object now in the left pelvis -KUB 02/05 shows 2 metallic objects, one in the rectum and the other in the splenic flexture Monitor stools for foreign body Schizophrenia with history of SI Past history of SI, long history of foreign body ingestion Psychiatry consulted. 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 nightly. Consideration of Haldol conversion to decanoate was recommended as outpatient, Haldol dose increases have been deferred in settings of acute ingestion due to potential for worsening of constipation. He currently remains on p.o. nightly Haldol 8 mg total Last EKG 11/2021 with QTC 433 Urethral discomfort Patient had had an episode of dysuria without reports of foreign body insertion at the urethra Was concerned for UTI in the setting of prior urologic intervention from foreign body insertion as noted above UA With leukocyte esterase and blood, UA shows group g beta -complete 7 day course of Amoxicillin-needs 2 more days after discharge Dispo-dc to correction (2) Schizophrenia: (3) Foreign body ingestion: Total Time Total Time Spent Total Time Spent (In Minutes): 35 min Discharge Plan Discharge Items Patient Disposition: [facility] Reason For Visit: ANAL BLEEDING,FOREIGN BODY IN ANUS Discharge Diagnosis: Ingestion of metallic foreign bodies, rectal bleeding, UTI Condition on Discharge: Fair Activity: Resume your previous activity Non-emergency contact: Primary Care Provider Call non-emergency contact if: you have any medication questions, your symptoms worsen and your pain is not controlled Follow-up/Referrals: Kalyn ROBERSON [Primary Care Provider] - Diet: Regular Addtl Attending Provider Instructions: Continue serial KUB xrays until all metallic foreign bodies are passed through. Continue laxatives to assist with this. No further bleeding and no evidence of peritonitis or bowel obstruction or perforation on day of discharge. Please finish out the amoxicillin for 2 more days for the UTI Pending Studies at Discharge: No Stand-Alone Forms: My [facility] Skilled Items Patient informed of condition?: Yes Discharge Level of Care: Other Communicable Disease: No Discharge Prognosis: Improving Lines: None Urinary Catheter: No Medications and DC Order Prescriptions: New amoxicillin 500 mg Capsule 500 mg PO BID Qty: 4 0RF sennosides-docusate sodium [Senokot-S] 8.6-50 mg Tablet 2 tab PO QAM Qty: 60 0RF Continued mirtazapine 30 mg Tablet 45 mg PO HS haloperidol 2 mg Tablet 3 mg PO HS Rx Instructions: CRUSH MED---TOTAL DOSE 8 MG--TAKES WITH 5 MG TAB. haloperidol 5 mg tablet 5 mg PO HS Rx Instructions: CRUSH MED----TOTAL DOSE 8 MG--TAKES WITH 1.5 TABS OF 2 MG TAB. paroxetine HCl 30 mg Tablet 30 mg PO HS polyethylene glycol 3350 [Miralax] 17 gram Powder In Packet 17 g PO BID Discharge Orders: Discharge Order (Routine); Ordered 02/06/22 Ordered By: Enid Jones Admission Data Admit Date/Time: 02/04/22 15:11 Attending Provider: Enid Jones Admit Provider: Sergey Morton Primary Care Provider: Kalyn ROBERSON Other Providers: Sergey Morton ; Luc Villalobos Coding Level of Care Code D/C DAY MANAGEMENT >30 MINS Diagnoses Foreign body Schizophrenia F20.0 Schizophrenia type: paranoid schizophrenia Foreign body ingestion T18.9XXA
[2022-02-06] MEDS ORDERED: POLYETHYLENE (MIRALAX) 17 GM PACK PO SCH (15:15)
[2022-02-06] MEDS ORDERED: DOCUSATE SODIUM/SENNA 50/8.6MG TAB PO SCH (15:15)
== END 2022-02-06 18:58 | DRG 394 ==
LOC: 3W 15:04 → ED 15:04 → SUATTDRO 18:39 → 3W 19:44 → SUATTDRO 02-04 15:11

== ENCOUNTER 2022-03-24 17:46 | Inpatient (IN) ==
[2022-03-24 21:25] LABS: Basophils # (auto) 0.03 K/uL (0-0.2); Basophils % (auto) 0.3 %; Eosinophils # (auto) 0.01 K/uL (0-0.50); Eosinophils % (auto) 0.1 %; Hematocrit (blood only) 37.9 % (40.1-51.0); Hemoglobin 12.1 g/dl (14.0-18.0); Immature Granulocytes # (auto) 0.03 K/uL (0.00-0.02); Immature Granulocytes % (auto) 0.3 %; Lymphocytes % (auto) 16.8 %; Mean Corpuscular Hemoglobin 24.8 pg (25.0-34.0); Mean Corpuscular Hgb Conc 31.9 g/dL (32.0-36.0); Mean Corpuscular Volume 77.8 fL (80.0-100.0); Mean Platelet Volume 11.6 fL (9.4-12.4); Monocytes % (auto) 8.4 %; Neutrophils # (auto) 7.05 K/uL (1.4-6.5); Neutrophils % (auto) 74.1 %; Platelet Count 246 K/uL (130-400); RDW Coefficient of Variation 14.7 % (11.5-14.5); RDW Standard Deviation 40.8 fL (36.4-46.3); Red Blood Count 4.87 M/uL (4.63-6.08); White Blood Count 9.52 K/ul (4.8-10.8)
[2022-03-24 21:32] LABS: Calcium 9.6 mg/dl (8.5-10.1); Creatinine Clr Calc Pharmacy 108.8 ml/min; Est GFR (African American) 98.9 ml/min; Est GFR (Non-African American) 85.3 ml/min; Potassium 3.8 mmol/L (3.5-5.1)
[2022-03-24 21:33] LABS: Partial Thromboplastin Ratio 0.9; Partial Thromboplastin Time 24.6 Seconds (21.0-31.0); Prothrombin Time 11.1 Seconds (9.0-12.0)
[2022-03-24] MEDS ORDERED: IOVERSOL 350 MG 100mL Prefilled Syringe IV ONE (21:45)
--- NOTE | 2022-03-24 23:45 | Urology Consultation ---
Date of Consultation March 24, 2022 Assessment & Plan (1) Foreign body in urethra: (2) Acute urinary retention: (3) Schizophrenia: (4) Auditory hallucination: (5) Foreign body ingestion: (6) Malingerer: (7) Self-harming behavior: Plan Patient with obstruction due to foreign body in urinary system. Patient knowingly inserted and forced foreign body, likely portion of pen into urethra. Has long history of malingering with self harm behavior. Admitted due to GI foreign body as well. Plan for observation per ER for GI foreign body. Due to urinary obstruction and possible issues need emergent extraction. Risks and benefits discussed at length for procedure. These include bleeding, infection, injury to surrounding tissues or organs, and risks associated with anesthesia. Patient states understanding and agrees to proceed. Will sign consent and schedule. Once again extensive conversation with patient about self harm, malingering, and significant risk of damage with foreign body insertion. Discussed skilled nursing issues up to including sepsis, renal failure, and . Discussed risks related to anesthesia. Will plan for procedure with minimal sedation to decrease risk of strain on cardiac/pulmonary with patient having numerous proc edures in last 6 months for foreign body insertion in GI and system. Will plan to proceed with intervention with cystoscopy and extraction of foreign body. May need catheter. Strongly encouraged patient to discontinue insertion of foreign body and reiterated possibility of significant damage and issues with repeat placement and extraction. Will plan to maintain catheter. Recommend psychiatric assessment with planning for managing of malingering and self harm behavior. Will plan for observation after extraction and discharge once cleared medically and by GI for foreign body of GI system. Vital stable and afebrile. Mild hypertension likely due to discomfort. Imaging was reviewed and interpreted by myself. Location of foreign body in proximal urethra. Labs reviewed. White count normal. No anemia. Renal function stable. Patients complicated medical and surgical history was reviewed and summarized as above including multiple interventions for malingering behavior. Plan to proceed with cystoscopy and foreign body extraction. History of Present Illness History of Present Illness New consultation for patient with foreign body in urethra with long well known history of malingering with self harm. Patient incarcerated at correctional facility. Also swallowed foreign body and has consult for GI assessment. Has had greater than 6 interventions for foreign body since incarceration. Developed significant discomfort, obstruction, and ill feelings after placement of foreign body, likely part of pen into urethra and forcing to bladder. Patient uncooperative and has required multiple procedures for extraction. Also history of swallowing and placing foreign bodies in the GI system. Patient developed worsening discomfort and increasing sudden onset of pain into groin and pelvis and trouble voiding with flank going down and radiating into groin and back in waves comes and goes. Can be severe at times. Discussed and reviewed patient's family history for any history of issues. Also, discussed patient's medical surgery history especially related to any history of urinary issues or stone disease. Well known history of malingering and self harm. Patient was admitted and is undergoing observation. Allergies Allergy/AdvReac Type Severity Reaction Status Date / Time No Known Allergies Allergy Verified 02/01/22 17:50 Home Medications Medication Instructions Recorded Confirmed Type paroxetine HCl 30 mg tablet 30 mg PO HS 12/02/20 02/01/22 History mirtazapine 30 mg tablet 45 mg PO HS 11/21/21 02/01/22 History haloperidol 2 mg tablet 3 mg PO HS 12/25/21 02/01/22 History haloperidol 5 mg tablet 5 mg PO HS 12/25/21 02/01/22 History polyethylene glycol 3350 17 gram 17 g PO BID 02/01/22 02/01/22 History oral powder packet (Miralax) amoxicillin 500 mg capsule 500 mg PO BID #4 caps 02/06/22 Rx sennosides 8.6 mg-docusate sodium 2 tab PO QAM #60 tabs 02/06/22 Rx 50 mg tablet (Senokot-S) Patient History Medical History Anxiety Depression Foreign body in urethra H/O swallowed foreign body Schizophrenia Suicidal ideation Surgical History H/O esophagogastroduodenoscopy Social History Smoking Status: Former smoker Tobacco Type: Cigarettes Second Hand Exposure: No; Hx Alcohol Use: No Hx Substance Use: No Preferred Language: Azeri Communication Ability: Effective 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 How many Children do You have: 0 Feels Safe at Home: Yes Assistive Devices: None Review of Systems Review of Systems: All systems reviewed & are unremarkable except as noted in HPI & below, Unobtainable due to cognitive status and Other (Limited due to patient uncorporation. ) Physical Exam Physical Exam: General: Alert and oriented x 3 in no acute distress. HEENT: Normocephalic Atraumatic. Inspection normal. Cranial Nerves 2-12 Grossly intact. Nares are clear. Neck is supple. Normal inspection of face. Normal inspection of neck. Neurologic: No deficits on inspection. Baseline for motor function and sensory. Psychologic: Normal affect. Respiratory: Nonlabored. No use of accessory muscles. No tachypnea or dyspnea. Cardiovascular: No tachycardia Skin: [place] and Dry. No rashes or visible lesions. Extremities: Moving without issues. No motor deficits on inspection Lymphatics: No edema Abdomen: Soft Non-distended. No rebound or guarding. : foreign body in urethra unable to access due to location. No blood at meatus. Results & Data ([facility]) Vital Signs (Past 12 Hours) Vital Signs Temp Pulse Pulse Resp BP BP Pulse Ox 03/24/22 20:28 88 20 98 03/24/22 21:46 90 22 142/67 H 98 03/24/22 18:20 36.9 C 97 H 18 139/77 98 O2 Del Method 03/24/22 20:28 Room Air 03/24/22 21:46 Room Air 03/24/22 18:20 Room Air PG Care Time/CCT Total # of Minutes Spent Total Time Spent with Patient: Total time spent is greater than 50% in coordination of care (as documented) at patient's floor/unit and/or counseling patient: Coding Level of Care Code 93504 Inpt Consult Level 5 Diagnoses Foreign body in urethra T19.0XXA Encounter type: initial encounter Acute urinary retention R33.8 Schizophrenia F20.0 Schizophrenia type: paranoid schizophrenia Auditory hallucination R44.0 Foreign body ingestion T18.9XXA Malingerer Z76.5 Self-harming behavior (1) Foreign body in urethra Encounter type: initial encounter Qualified Code(s): T19.0XXA - Foreign body in urethra, initial encounter (2) Schizophrenia Schizophrenia type: paranoid schizophrenia Qualified Code(s): F20.0 - Paranoid schizophrenia
--- NOTE | 2022-03-24 23:54 | History & Physical Report ---
Date of Service March 24, 2022 Assessment & Plan (1) Self-harming behavior: Plan: Recurrent issues with self-harm behavior as noted below (2) Foreign body in urethra: Plan: Foreign body in urethra- Debris removed by Dr. Burton urology in the OR this evening Ceftriaxone 1 g IV daily Follow urine culture sensitivity LR at 80 mils per hour x1 L (3) Foreign body in stomach: Plan: Patient undergo endoscopy in the morning for removal of foreign body (4) Schizophrenia: Plan: Schizophrenia/depression/anxiety Hold medications while n.p.o. Consult psychiatry (5) Depression: Plan: See above (6) Anxiety: Plan: See above History of Present Illness Chief Complaint: The patient presents to the emergency department after intentionally swallowing metal, and placing metal in his penis Primary Care Provider: DA Mccain The patient is a 22-year-old [facility], with a past medical history including self harming behavior, malingering, previous placement of for eign bodies in the rectum, urethra and stomach, anxiety, schizophrenia, auditory hallucinations and depression. He presents to the emergency department with report of swallowing pieces of metal from a broken up washer and putting a pen and staple in his urethra as noted above. The patient is to be seen by Dr. Burton from urology this evening, and will be seen by gastroenterology in the morning. Allergies Allergy/AdvReac Type Severity Reaction Status Date / Time No Known Allergies Allergy Verified 03/25/22 00:50 Home Medications Medication Instructions Recorded Confirmed Type haloperidol 10 mg tablet 10 mg PO HS 03/25/22 03/25/22 History haloperidol 5 mg tablet 5 mg PO HS 03/25/22 03/25/22 History lithium carbonate 300 mg capsule 300 mg PO BID 03/25/22 03/25/22 History mirtazapine 45 mg tablet 45 mg PO HS 03/25/22 03/25/22 History paroxetine HCl 10 mg tablet 10 mg PO HS 03/25/22 03/25/22 History paroxetine HCl 20 mg tablet 20 mg PO HS 03/25/22 03/25/22 History polyethylene glycol 3350 17 gram 17 g PO BID 03/25/22 03/25/22 History oral powder packet (Miralax) Past Med/Surg History Medical History Anxiety Depression Foreign body in urethra H/O swallowed foreign body Schizophrenia Suicidal ideation Surgical History H/O esophagogastroduodenoscopy Social History Smoking Status: Former smoker Tobacco Type: Cigarettes Second Hand Exposure: No; Hx Alcohol Use: No Hx Substance Use: No Preferred Language: Malay Communication Ability: Effective Rn Cvicu Required: No Beliefs That Will Affect Care: None marital status: Single Current Living Situation: Other Current Living Situation Comment: [facility]. How many Children do You have: 0 Feels Safe at Home: Yes Assistive Devices: None Review of Systems Review of Systems: The patient denies chest pain, palpitations, shortness of breath, dyspnea on exertion, cough, lower extremity swelling, sore throat, fevers, chills, sweats, lightheadedness, dizziness, headache, memory loss, loss of consciousness, rash, abnormal bruising or bleeding, imbalance, focal or generalized weakness, numbness or tingling in arms or legs, generalized arthralgias or myalgias, back or neck pain, or night sweats. The review of systems is otherwise negative other than for that already noted above, and at least 10 systems have been reviewed. Physical Exam Physical Exam: The patient is awake, alert and oriented 3, well developed and well nourished, normocephalic and atraumatic, lying in bed and in no acute distress. HEENT--PERRL, EOMI, mucous membranes and oropharynx normal.. Neck--supple. No JVD. No bruits. Thyroid normal, trachea midline, no adenopathy. Heart--normal S1 and S2. No murmurs, rubs or gallops. Lungs--clear bilaterally, no respiratory distress, no accessory muscle use. Abdomen--normal bowel sounds and soft. Nontender. Nondistended, no hernias or m asses, no organomegaly. Extremities--no cyanosis or clubbing. No edema. There are good distal pulses b/l. Dermatologic--normal skin turgor, normal color, no abnormal lymph nodes, no rash. Neurologic--cranial nerves II through XII grossly intact. Rheumatologic--normal range of motion. Psychiatric--normal affect. Results & Data Results & Data ([facility]) Vital Signs (Past 12 Hours) Vital Signs Temp Pulse Pulse Resp BP BP Pulse Ox 03/24/22 23:00 80 18 147/85 H 98 03/24/22 20:28 88 20 98 03/24/22 21:46 90 22 142/67 H 98 03/24/22 18:20 36.9 C 97 H 18 139/77 98 O2 Del Method 03/24/22 23:00 Room Air 03/24/22 20:28 Room Air 03/24/22 21:46 Room Air 03/24/22 18:20 Room Air Laboratory Results Laboratory Results WBC 9.52 K/ul (4.8-10.8) 03/24/22 20:48 RBC 4.87 M/uL (4.63-6.08) 03/24/22 20:48 Hgb 12.1 g/dl (14.0-18.0) L 03/24/22 20:48 Hct 37.9 % (40.1-51.0) L 03/24/22 20:48 MCV 77.8 fL (80.0-100.0) L 03/24/22 20:48 MCH 24.8 pg (25.0-34.0) L 03/24/22 20:48 MCHC 31.9 g/dL (32.0-36.0) L 03/24/22 20:48 RDW Std Deviation 40.8 fL (36.4-46.3) 03/24/22 20:48 RDW Coeff of Bassem 14.7 % (11.5-14.5) H 03/24/22 20:48 Plt Count 246 K/uL (130-400) 03/24/22 20:48 MPV 11.6 fL (9.4-12.4) 03/24/22 20:48 Immature Gran % (Auto) 0.3 % 03/24/22 20:48 Neut % (Auto) 74.1 % 03/24/22 20:48 Lymph % (Auto) 16.8 % 03/24/22 20:48 [place] % (Auto) 8.4 % 03/24/22 20:48 Eos % (Auto) 0.1 % 03/24/22 20:48 Baso % (Auto) 0.3 % 03/24/22 20:48 Neut # (Auto) 7.05 K/uL (1.4-6.5) H 03/24/22 20:48 Lymph # (Auto) 1.60 K/uL (1.2-3.4) 03/24/22 20:48 [place] # (Auto) 0.80 K/uL (0.24-0.82) 03/24/22 20:48 Eos # (Auto) 0.01 K/uL (0-0.50) 03/24/22 20:48 Baso # (Auto) 0.03 K/uL (0-0.2) 03/24/22 20:48 Immature Gran # (Auto) 0.03 K/uL (0.00-0.02) H 03/24/22 20:48 PT 11.1 Seconds (9.0-12.0) 03/24/22 20:48 INR 1.0 (0.9-1.1) 03/24/22 20:48 APTT 24.6 Seconds (21.0-31.0) 03/24/22 20:48 PTT Ratio 0.9 03/24/22 20:48 Sodium 139 mmol/L (136-145) 03/24/22 20:48 Potassium 3.8 mmol/L (3.5-5.1) 03/24/22 20:48 Chloride 104 mmol/L (98-107) 03/24/22 20:48 Carbon Dioxide 26 mmol/L (21-32) 03/24/22 20:48 Anion Gap 9 (3-11) 03/24/22 20:48 BUN 12 mg/dl (6-23) 03/24/22 20:48 Creatinine 1.20 mg/dl (0.6-1.4) 03/24/22 20:48 Est Cr Clr Drug Dosing 108.8 ml/min 03/24/22 20:48 Est GFR ( Amer) 98.9 ml/min 03/24/22 20:48 Est GFR (Non-Af Amer) 85.3 ml/min 03/24/22 20:48 BUN/Creatinine Ratio 10.0 (10-20) 03/24/22 20:48 Glucose 92 mg/dl (70-99(Fasting)) 03/24/22 20:48 Calcium 9.6 mg/dl (8.5-10.1) 03/24/22 20:48 Urine Color Yellow 03/25/22 Unknown Urine Appearance Slightly Cloudy (Clear) A 03/25/22 Unknown Urine pH 8.0 (4.5-7.5) H 03/25/22 Unknown Ur Specific [place] > 1.045 (1.000-1.030) H 03/25/22 Unknown Urine Protein Negative (Negative) 03/25/22 Unknown Urine Glucose (UA) Negative (Negative) 03/25/22 Unknown Urine Ketones Negative (Negative) 03/25/22 Unknown Urine Blood Trace (Negative) H 03/25/22 Unknown Urine Nitrite Negative (Negative) 03/25/22 Unknown Urine Bilirubin Negative (Negative) 03/25/22 Unknown Urine Urobilinogen Negative (Negative) 03/25/22 Unknown Ur Leukocyte Esterase 2+ (Negative) H 03/25/22 Unknown Urine WBC (Auto) >30 /hpf (0-5) H 03/25/22 Unknown Urine RBC (Auto) 0-4 /hpf (0-4) 03/25/22 Unknown U Hyaline Cast (Auto) 1-5 /lpf (0-5) 03/25/22 Unknown U Epithel Cells (Auto) 5-10 /lpf (0-5) H 03/25/22 Unknown Urine Bacteria (Auto) Negative (Negative) 03/25/22 Unknown SARS-CoV-2, RNA, NAAT NEGATIVE (NEGATIVE) 03/24/22 22:56 Diagnostic Findings [facility] Patient: AL DALTON [id number] (Male) : [birth year] Status: ER Date: 03/24/22 22:00 Room #: History: swallowedFBandplacedpen&stapleinurethra Slices: [phone] Priors: Tech: Jermaine Zapien @ [phone] Exams: CT ABDOMEN & PELVIS With Contrast Contrast: IV Amt: 94 Accession Numbers: [id number] Referring Physician: REFERRED SELF Preliminary Findings Only See Final Report For Complete Findings CT ABDOMEN & PELVIS With Contrast: Metallic radiopaque object within the stomach. No obstruction or perforation. Malpositioned Hernandez catheter which is located in the urethra subjacent to the pubic bone. No hydronephrosis. Liver, gallbladder, pancreas, spleen, and kidneys are unremarkable. Radiologist: Tristian Penn MD Study ready at 22:02 and initial results transmitted at 22:32 *This report constitutes a preliminary interpretation only. Non-acute findin gs felt to be unrelated to the clinical presentation may not be discussed in this report. The study will be interpreted and a final report will be generated by the local Radiologist the following shift. To reach the [facility] radiology department call [phone]. If a discrepancy is found between the preliminary and final interpretations of this study, please notify us via our Client Portal at [email or web address], under QA Exams. You can also fax this report with a description of the discrepancy, or include the final report, to our daytime fax number [phone]. If faxing, please indicate the severity of discrepancy using one of the following categories: [ ] 1 - Agree/Informational [ ] 2 - Unlikely to Affect Management [ ] 3 - Possible Eventual Change of Management [ ] 4 - Probable Immediate Change of Management For all other patient related information, please fax us at [phone]. [id number] Code Status & VTE Plan Code Status Full code VTE Prophylaxis Plan VTE Prophylaxis will be ordered: Yes PG Care Time/CCT Total # of Minutes Spent Total Time Spent with Patient: Total time spent is greater than 50% in coordination of care (as documented) at patient's floor/unit and/or counseling patient: Coding Level of Care Code 72067 Initial Inpt Care Lvl 3 Diagnoses Self-harming behavior Foreign body in urethra T19.0XXA Foreign body in stomach T18.2XXA Schizophrenia F20.0 Schizophrenia type: paranoid schizophrenia Depression F32.A Depression Type: unspecified Anxiety F41.9 (1) Depression Depression Type: unspecified Qualified Code(s): F32.A - Depression, unspecified (2) Schizophrenia Schizophrenia type: paranoid schizophrenia Qualified Code(s): F20.0 - Paranoid schizophrenia
[2022-03-25] MEDS ORDERED: ONDANSETRON INJ 2 MG/ML 2 ML VIAL IV STA (00:08)
[2022-03-25] MEDS ORDERED: ACETAMINOPHEN 1,000 MG/100 ML VIAL IV STA (00:16)
[2022-03-25] MEDS ORDERED: ATROPINE SULFATE 0.1 MG/ML 10ML SYR IV PRN (00:23)
[2022-03-25] MEDS ORDERED: MoRPHine SULFATE 10 MG/ML CARP/VIAL IV PRN (00:23)
[2022-03-25] MEDS ORDERED: fentaNYL citrate 100 MCG/2 ML VIAL IV PRN (00:23)
[2022-03-25] MEDS ORDERED: ePHEDrine sulfate 50 MG/ML AMP IV PRN (00:23)
[2022-03-25] MEDS ORDERED: MEPERIDINE HCL 25 MG/ML CARP/VIAL IV PRN (00:23)
[2022-03-25] MEDS ORDERED: ONDANSETRON INJ 2 MG/ML 2 ML VIAL IV PRN ×2 (00:23→02:19)
--- NOTE | 2022-03-25 00:23 | Anesthesiology Consultation ---
Date of Service March 25, 2022 Assessment & Plan Chart Review Chart Review: Acceptable Risk for Surgery Consults Requested none ASA [id number] Proposed Anesthesia Anesthesia Type: General Risk / Benefits Reviewed With: PT / POA / Parent / Guardian, Accepts Plan and Informed Consent Obtained Additional Comments: ailyn neg History Surgery Operation Date: 03/25/22 00:15 Proposed Procedures p Cystoscopy - José Luis Burton DO Height/Weight Height: 5 ft 10 in Weight: 89.6 kg Allergies Allergy/AdvReac Type Severity Reaction Status Date / Time No Known Allergies Allergy Verified 02/01/22 17:50 Medications Home Medications Medication Instructions Recorded Confirmed Last Taken paroxetine HCl 30 mg tablet 30 mg PO HS 12/02/20 02/01/22 01/31/22 21:00 mirtazapine 30 mg tablet 45 mg PO HS 11/21/21 02/01/22 01/31/22 21:00 haloperidol 2 mg tablet 3 mg PO HS 12/25/21 02/01/22 01/31/22 21:00 haloperidol 5 mg tablet 5 mg PO HS 12/25/21 02/01/22 01/31/22 21:00 polyethylene glycol 3350 17 gram 17 g PO BID 02/01/22 02/01/22 01/31/22 oral powder packet (Miralax) amoxicillin 500 mg capsule 500 mg PO BID #4 caps 02/06/22 Unknown sennosides 8.6 mg-docusate sodium 2 tab PO QAM #60 tabs 02/06/22 Unknown 50 mg tablet (Senokot-S) NPO Date Last Intake of Fluids: 03/24/22 Time Last Intake of Fluids: 17:00 Date Last Intake of Solids: 03/24/22 Time Last Intake of Solids: 17:00 Past Medical History Medical History Anxiety Depression Foreign body in urethra H/O swallowed foreign body Schizophrenia Suicidal ideation Exercise / Class Metabolic Activity II 4-5 Yardwork/Stairs/Walk up hill Past Surgical History Surgical History H/O esophagogastroduodenoscopy Past Anesthesia History No Hx of Anesthesia Complications and No Family Hx of Anesthesia Complications History of PONV No Hx of PONV and No Hx of Motion Sickness Social History Smoking Status: Former smoker tobacco type: cigarettes Hx Alcohol Use: No Hx Substance Use: No substance use type: does not use Physical Exam Vital Signs Last Vital Signs Temp 36.9 C 03/24/22 18:20 Pulse 80 03/24/22 23:00 Resp 18 03/24/22 23:00 BP 147/85 H 03/24/22 23:00 Pulse Ox 98 03/24/22 23:00 O2 Del Method 03/24/22 23:00 ENMT Mouth: no TMJ abnormality Thyromental Distance: > or= 3.5 Finger Breadths Mallampati Class: II Neck normal visual inspection and trachea midline; neck extension not limited netting overface Respiratory normal respiratory effort Auscultation: lungs clear to auscultation bilaterally Cardiovascular Rate/Rhythm: regular rate and regular rhythm Heart Sounds: no murmur Musculoskeletal Spine: normal cervical ROM Extremities: full ROM of extremities Neurologic moves all extremities Psychiatric Orientation: alert and oriented x 3 Testing Laboratory Results 03/24/22 20:48 03/24/22 20:48 PT 11.1 Seconds (9.0-12.0) 03/24/22 20:48 INR 1.0 (0.9-1.1) 03/24/22 20:48 APTT 24.6 Seconds (21.0-31.0) 03/24/22 20:48
--- NOTE | 2022-03-25 00:26 | Emergency Department Note ---
History of Present Illness General Chief complaint: Foreign Body Stated complaint: SWALLOWED METAL, PUT METAL IN PENIS Time Seen by Provider: 03/24/22 20:26 Source: police History of Present Illness Provider complaint: Foreign body Maximum Pain Intensity: 10 22-year-old schizophrenic incarcerated male presents emergency department for foreign body. Patient states he swallowed pieces of metal from a broken up washer as well as put a pad and staple in his urethra. Home Medications Medication Instructions Recorded Confirmed Type paroxetine HCl 30 mg tablet 30 mg PO HS 12/02/20 02/01/22 History mirtazapine 30 mg tablet 45 mg PO HS 11/21/21 02/01/22 History haloperidol 2 mg tablet 3 mg PO HS 12/25/21 02/01/22 History haloperidol 5 mg tablet 5 mg PO HS 12/25/21 02/01/22 History polyethylene glycol 3350 17 gram 17 g PO BID 02/01/22 02/01/22 History oral powder packet (Miralax) amoxicillin 500 mg capsule 500 mg PO BID #4 caps 02/06/22 Rx sennosides 8.6 mg-docusate sodium 2 tab PO QAM #60 tabs 02/06/22 Rx 50 mg tablet (Senokot-S) Allergies Allergy/AdvReac Type Severity Reaction Status Date / Time No Known Allergies Allergy Verified 02/01/22 17:50 Past Med/Surg History Medical History Anxiety Depression Foreign body in urethra H/O swallowed foreign body Schizophrenia Suicidal ideation Surgical History H/O esophagogastroduodenoscopy Social History Smoking Status: Former smoker Tobacco Type: Cigarettes Second Hand Exposure: No; Hx Alcohol Use: No Hx Substance Use: No Preferred Language: Portuguese Communication Ability: Effective Entry Level Account Manager Required: No Beliefs That Will Affect Care: None marital status: Single Current Living Situation: Other Current Living Situation Comment: [facility]. How many Children do You have: 0 Feels Safe at Home: Yes Assistive Devices: None Review of Systems A total of 10 systems reviewed and were otherwise negative Physical Exam Vital Signs Vital Signs - 24 hr 03/24/22 18:20 03/24/22 21:46 03/24/22 20:28 Temperature 36.9 C Temperature Source Temporal Artery Scan Pulse Rate 97 H 88 Pulse Rate [Finger] 90 Pulse Rhythm Regular Regular Pulse Rhythm [Finger] Regular Pulse Strength [Finger] Normal Respiratory Rate 18 22 20 Respiratory Effort / Characteristics Non-Labored Spontaneous Non-Labored Respiratory Depth Normal Normal Respiratory Pattern Regular Regular Blood Pressure 139/77 Blood Pressure [Right Arm] 142/67 H Blood Pressure Mean 97 Blood Pressure Mean [Right Arm] 92 Blood Pressure Position Sitting Blood Pressure Position [Right Arm] Lying Pulse Oximetry 98 98 98 Oxygen Delivery Method Room Air Room Air Room Air Sepsis Recent Fever Within 48 Hours No Sepsis New/Unexplained Change in Mental Status No Sepsis Action Taken by Nursing No Action Required 03/24/22 23:00 Temperature Temperature Source Pulse Rate Pulse Rate [Finger] 80 Pulse Rhythm Pulse Rhythm [Finger] Pulse Strength [Finger] Respiratory Rate 18 Respiratory Effort / Characteristics Respiratory Depth Respiratory Pattern Blood Pressure Blood Pressure [Right Arm] 147/85 H Blood Pressure Mean Blood Pressure Mean [Right Arm] 105 Blood Pressure Position Blood Pressure Position [Right Arm] Pulse Oximetry 98 Oxygen Delivery Method Room Air Sepsis Recent Fever Within 48 Hours Sepsis New/Unexplained Change in Mental Status Sepsis Action Taken by Nursing GENERAL: Patient in handcuffs with police officers at bedside. HENT: Exam performed. - Head: Normocephalic and atraumatic. - Right Ear: External ear normal. No mastoid tenderness. - Left Ear: External ear normal. No mastoid tenderness. - Mouth/Throat: The oropharynx is clear and moist. No trismus in the jaw. No dental abscesses or uvula swelling. No oropharyngeal exudate or tonsillar abscesses. EYES: Conjunctivae and EOM are normal. Pupils are equal, round, and reactive to light. Right eye exhibits no discharge. Left eye exhibits no discharge. No sc leral icterus. NECK: Normal range of motion. Neck supple. No JVD present. No spinous process tenderness present. No carotid bruit present. No rigidity. No tracheal deviation and normal range of motion present. No Brudzinski's sign and no Kernig's sign noted. CV: Normal rate, regular rhythm, normal heart sounds and intact distal pulses. There is no peripheral edema. Palpable radial pulses bue. PULM/CHEST: Effort normal and breath sounds normal. No respiratory distress. No stridor. He has no wheezes. He has no rales. - Chest Wall: He exhibits no tenderness. ABD: The abdomen is soft. Bowel sounds are normal. He has no distension. No mass is present. There is no tenderness. There is no rebound, no guarding, no Pelaez's sign and no tenderness at McBurney's point. Rovsig negative. MUSC/SKEL: Normal range of motion. There is no peripheral edema, tenderness or deformity. LYMPH: No cervical adenopathy. NEURO: He is alert and oriented to person, place, and time. He has normal strength. No cranial nerve deficit or sensory deficit. Coordination and gait normal. GCS eye subscore is 4. GCS verbal subscore is 5. GCS motor subscore is 6. Cerebellar tests wnl. SKIN: Skin is warm and dry. He is not diaphoretic. PSYCH: Bizarre affect. Course Course 2025: The patient was evaluated in room A10. A complete history and physical exam was performed Administered Medications Discontinued Medications Ioversol (Ioversol 350 Mg 100ml Prefilled Syringe) 94 ml IV ONCE ONE Stop: 03/24/22 21:46 Last Admin: 03/24/22 21:45 Dose: 94 ml Documented By: JENNY Medical Decision Making Laboratory Data Result diagrams: 03/24/22 20:48 03/24/22 20:48 Lab Results 03/24/22 03/24/22 03/24/22 Range/Units 20:48 20:48 20:48 WBC 9.52 (4.8-10.8) K/ul RBC 4.87 (4.63-6.08) M/uL Hgb 12.1 L (14.0-18.0) g/dl Hct 37.9 L (40.1-51.0) % MCV 77.8 L (80.0-100.0) fL MCH 24.8 L (25.0-34.0) pg MCHC 31.9 L (32.0-36.0) g/dL RDW Std Deviation 40.8 (36.4-46.3) fL RDW Coeff of Bassem 14.7 H (11.5-14.5) % Plt Count 246 (130-400) K/uL MPV 11.6 (9.4-12.4) fL Immature Gran % (Auto) 0.3 % Neut % (Auto) 74.1 % Lymph % (Auto) 16.8 % Grimes % (Auto) 8.4 % Eos % (Auto) 0.1 % Baso % (Auto) 0.3 % Neut # (Auto) 7.05 H (1.4-6.5) K/uL Lymph # (Auto) 1.60 (1.2-3.4) K/uL Grimes # (Auto) 0.80 (0.24-0.82) K/uL Eos # (Auto) 0.01 (0-0.50) K/uL Baso # (Auto) 0.03 (0-0.2) K/uL Immature Gran # (Auto) 0.03 H (0.00-0.02) K/uL PT 11.1 (9.0-12.0) Seconds INR 1.0 (0.9-1.1) APTT 24.6 (21.0-31.0) Seconds PTT Ratio 0.9 Sodium 139 (136-145) mmol/L Potassium 3.8 (3.5-5.1) mmol/L Chloride 104 (98-107) mmol/L Carbon Dioxide 26 (21-32) mmol/L Anion Gap 9 (3-11) BUN 12 (6-23) mg/dl Creatinine 1.20 (0.6-1.4) mg/dl Est Cr Clr Drug Dosing 108.8 ml/min Est GFR ( Amer) 98.9 ml/min Est GFR (Non-Af Amer) 85.3 ml/min BUN/Creatinine Ratio 10.0 (10-20) Glucose 92 (70-99(Fasting)) mg/dl Calcium 9.6 (8.5-10.1) mg/dl SARS-CoV-2, RNA, NAAT (NEGATIVE) 03/24/22 Range/Units 22:56 WBC (4.8-10.8) K/ul RBC (4.63-6.08) M/uL Hgb (14.0-18.0) g/dl Hct (40.1-51.0) % MCV (80.0-100.0) fL MCH (25.0-34.0) pg MCHC (32.0-36.0) g/dL RDW Std Deviation (36.4-46.3) fL RDW Coeff of Bassem (11.5-14.5) % Plt Count (130-400) K/uL MPV (9.4-12.4) fL Immature Gran % (Auto) % Neut % (Auto) % Lymph % (Auto) % Grimes % (Auto) % Eos % (Auto) % Baso % (Auto) % Neut # (Auto) (1.4-6.5) K/uL Lymph # (Auto) (1.2-3.4) K/uL Grimes # (Auto) (0.24-0.82) K/uL Eos # (Auto) (0-0.50) K/uL Baso # (Auto) (0-0.2) K/uL Immature Gran # (Auto) (0.00-0.02) K/uL PT (9.0-12.0) Seconds INR (0.9-1.1) APTT (21.0-31.0) Seconds PTT Ratio Sodium (136-145) mmol/L Potassium (3.5-5.1) mmol/L Chloride (98-107) mmol/L Carbon Dioxide (21-32) mmol/L Anion Gap (3-11) BUN (6-23) mg/dl Creatinine (0.6-1.4) mg/dl Est Cr Clr Drug Dosing ml/min Est GFR ( Amer) ml/min Est GFR (Non-Af Amer) ml/min BUN/Creatinine Ratio (10-20) Glucose (70-99(Fasting)) mg/dl Calcium (8.5-10.1) mg/dl SARS-CoV-2, RNA, NAAT NEGATIVE (NEGATIVE) Imaging Data Radiologist's Impression: PreliminaryFindingsOnly See Final Report For Complete Findings CT ABDOMEN & PELVIS With Contrast: Metallic radiopaque object within the stomach. No obstruction or perforation. Malpositioned Foleycatheter which is located in the urethra subjacent to the pubic bone. No hydronephrosis. Liver, gallbladder, pancreas, spleen, and kidneys are unremarkable. Radiologist: Tristian Penn MD Study ready at 22:02 and initial results transmitted at 22:32 [facility] Narrative Cardiac monitoring: An order was placed for continuous cardiac monitoring. The monitor shows a rate of 80 with sinus rhythm Vital signs stable. Labs within normal limits. ED imaging shows metallic radiopaque object within the stomach. CT imaging also states that there is a malpositioned Hernandez catheter located in the urethra subjacent to the pubic bone. The patient does not have a catheter and this is thought to be the foreign body that he introduced into his urethra. Discussed the case with Dr. Justin STARK. He has had an x-ray flatplate be done to make sure there is a foreign body is round. X-ray was done and the foreign body in the stomach does appear around Dr. Anderson states to admit to medicine and he will evaluate the patient in the morning for endoscopy to see if it needs to be removed or for a pass on its own. Discussed the case with urology Dr. Burton who states he is in-house and if the patient is being admitted he will remove the urethral foreign body this evening after he is done with his current case. Patient will be admitted to the [facility] hospitalist team Dr. Daniels notified. Impression & Plan Foreign body in urethra, Foreign body ingestion Discharge Plan Visit Data Chief Complaint: Foreign Body Stated Complaint: SWALLOWED METAL, PUT METAL IN PENIS ED Provider: Nicholas Almodovar Discharge Problem: Foreign body in urethra, Foreign body ingestion Patient Disposition: Being Evaluated by Hospitalist Forms Stand Alone Forms: [facility] Prescriptions Prescriptions: No Action mirtazapine 30 mg Tablet 45 mg PO HS haloperidol 2 mg Tablet 3 mg PO HS Rx Instructions: CRUSH MED---TOTAL DOSE 8 MG--TAKES WITH 5 MG TAB. haloperidol 5 mg tablet 5 mg PO HS Rx Instructions: CRUSH MED----TOTAL DOSE 8 MG--TAKES WITH 1.5 TABS OF 2 MG TAB. paroxetine HCl 30 mg Tablet 30 mg PO HS polyethylene glycol 3350 [Miralax] 17 gram Powder In Packet 17 g PO BID amoxicillin 500 mg Capsule 500 mg PO BID Qty: 4 0RF sennosides-docusate sodium [Senokot-S] 8.6-50 mg Tablet 2 tab PO QAM Qty: 60 0RF [facility] -
[2022-03-25] MEDS ORDERED: fentaNYL citrate 100 MCG/2 ML VIAL ONE (00:33)
[2022-03-25] MEDS ORDERED: MIDAZOLAM HCL 1 MG/ML 2ML VIAL ONE (00:33)
[2022-03-25] MEDS ORDERED: PROPOFOL IV EMULSION 10 MG/ML 20 ML VIAL IV ONE (01:07)
[2022-03-25] MEDS ORDERED: LIDOCAINE 2% MPF LOCAL 5 ML VIAL INFIL ONE (01:07)
[2022-03-25] MEDS ORDERED: SUCCINYLCHOLINE CHLORIDE 20 MG/ML 10 ML VIAL IV ONE (01:07)
[2022-03-25] MEDS ORDERED: DEXAMETHASONE SOD INJ 4 MG/ML VIAL ONE (01:16)
[2022-03-25] MEDS ORDERED: ONDANSETRON INJ 2 MG/ML 2 ML VIAL ONE (01:16)
[2022-03-25 01:19] LABS: Bacteria Urine Automated Negative (Negative); Bilirubin Urine Negative (Negative); Blood Urine Trace (Negative); Color Urine Yellow; Glucose Urine UA Negative (Negative); Ketones Urine Negative (Negative); Leukocyte Esterase Urine 2+ (Negative); Nitrite Urine Negative (Negative); Protein Urine Negative (Negative); RBC Urine Automated 0-4 /hpf (0-4); Specific Gravity Urine > 1.045 (1.000-1.030); Urobilinogen Urine Negative (Negative); WBC Urine Automated >30 /hpf (0-5)
--- NOTE | 2022-03-25 01:20 | Operative Report ---
PG Post Operative Report Pre & Post Diagnosis Preop Dx: Foreign body in urethra. Obstruction Postop Dx: Same Operation Date: 03/25/22 00:15 <No data on this case meets the specified criteria> I identified the patient and participated in the time-out.: Yes Procedure Operation Date: 03/25/22 00:15 Actual Procedures p Cystoscopy with extraction / Removal of Foreign Body - José Luis Burton DO Surgeon José Luis Burton, II, DO Taxi Dancer None Estimated Blood Loss 1 Findings Consistent with Post-Op Diagnosis Foreign body found in the proximal pendulous urethra with and going down into the bulbar urethra. Tubelike structure with portion of ink pen inserted Specimens Foreign body from urethra Drains None Complications none Disposition Disposition: Recovery Room Indications Patient with history of malingering and self-harm with foreign body insertion. Patient presented with foreign body lodged in urethra with inability remove and obstructive issues with voiding. Risks and benefits discussed at length. Description of Procedure Patient was consented and brought back to the operating room. Patient was placed under anesthesia in the supine position and moved to the dorsal lithotomy position. Patient was prepped and draped in the regular sterile fashion. A time out was completed. A flexible cystoscope was placed into the urethra advanced to the mid pendulous urethra. A foreign body was noted appeared to be the inner portion of an ink pen. The grasping device was utilized to grasp the metallic end of the inner portion of the foreign body and with gentle manipulation the foreign body was removed. The apparent inner portion of the ink pen was inserted and a tubelike silicone versus rubber structure similar to the end of a catheter. This had b een the end that had been inserted into the urethra. The scope was reinserted into the urethra and the entire urethra was assessed. Mild amount of irritation was noted in the bulbar urethra which appeared to be the area where the foreign body had been wedged/lodged. No false passages or damage was noted to the urethra. The scope was further advanced to the bladder and the entire bladder was examined. The UO's were identified as well as the bladder neck, trigone, dome, and the other important landmarks. No abnormal areas or areas of injury. No bleeding or major areas concern. The scope was removed. The urethra was inspected a final time. There was no areas of damage or laceration or injury. No false passages. As there was no major injury to the urethra it was decided to maintain no catheter. The patient's bladder was emptied with a 16 Macedonian red rubber catheter. Once the bladder was emptied the catheter was removed. The patient was cleaned, aroused from anesthesia, and transferred to the pacu in stable condition having tolerated the procedure well with no complications. I was present and participated in all aspects of the procedure. The patient will be monitored in the PACU until transferred Patient will be monitored on the floor. He also had ingested foreign bodies and will likely need GI procedure if the foreign bodies are unable to pass. He is going to be monitored with the hospitalist team and care will be transferred over to for them for future monitoring. Will have patient plan to follow-up as previously planned. No plans for further urologic intervention. If no plan for GI intervention patient can be likely discharged back to the correctional facility. Can be discharged at the discretion of the hospitalist team and GI doctors. Patient has had multiple interventions for removal of foreign body from the urethra and a conversation was had with the patient prior to the procedure. Will recommend likely psych evaluation for self-harm and malingering with multiple episodes requiring surgical intervention over the last 6 months. I attest to the content of the Intraoperative Record and any orders documented therein. Any exceptions are noted below.
[2022-03-25 01:21] LABS: Appearance Urine Slightly Cloudy (Clear)
[2022-03-25] MEDS ORDERED: ceFAZolin 2000MG 2,000 MG/15 ML SYR IV ONE (01:27)
--- NOTE | 2022-03-25 01:47 | Anesthesiology Progress Note ---
Date of Service March 25, 2022 Anesthesia Post Procedure Vital Signs Vital Signs: Temp Pulse Pulse Resp BP BP BP 03/25/22 01:40 36.8 C 79 16 152/87 H 03/25/22 01:30 36.8 C 81 16 117/86 03/25/22 01:20 36.8 C 81 16 148/93 H 03/25/22 00:00 84 16 147/78 H 03/24/22 23:00 80 18 147/85 H 03/24/22 20:28 88 20 03/24/22 21:46 90 22 142/67 H 03/24/22 18:20 36.9 C 97 H 18 139/77 Pulse Ox O2 Del Method O2 Flow Rate 03/25/22 01:40 98 Room Air 03/25/22 01:30 98 Room Air 03/25/22 01:20 99 Oxymask 4 03/25/22 00:00 98 Room Air 03/24/22 23:00 98 Room Air 03/24/22 20:28 98 Room Air 03/24/22 21:46 98 Room Air 03/24/22 18:20 98 Room Air Pain Intensity Abdomen: Pain Intensity: 6 Transfer of Care Handoff Completed per policy Notes Mental Status: alert / awake / arousable Patient Amnestic to Procedure: Yes Nausea / Vomiting: adequately controlled Pain: adequately controlled Airway Patency, RR, SpO2: stable & adequate BP & HR: stable & adequate Hydration State: stable & adequate Anesthetic Complications: no major complications apparent and Pt Satisfied with anesthetic care
[2022-03-25] MEDS ORDERED: LACTATED RINGER'S 1,000 ML IV SCH (02:19)
[2022-03-25] MEDS: haloperidoL 1 MG TAB PO SCH ×2 (03:28→20:13)
[2022-03-25] MEDS: PARoxetine HCL 20 MG TAB PO SCH ×2 (03:29→20:14)
[2022-03-25] MEDS: haloperidoL 5 MG TAB PO SCH ×2 (03:29→20:14)
[2022-03-25] MEDS: MIRTAZAPINE TAB 15 MG TAB PO SCH ×2 (03:29→20:13)
[2022-03-25] MEDS: cefTRIAXone SODIUM 2,000 MG in DEXTROSE 5% 50 ML IV SCH ×2 (04:00→23:36)
[2022-03-25 06:25] LABS: Hematocrit (blood only) 38.3 % (40.1-51.0); Mean Corpuscular Hemoglobin 24.2 pg (25.0-34.0); Mean Corpuscular Hgb Conc 31.3 g/dL (32.0-36.0); Mean Corpuscular Volume 77.4 fL (80.0-100.0); Mean Platelet Volume 11.1 fL (9.4-12.4); Platelet Count 219 K/uL (130-400); RDW Coefficient of Variation 14.8 % (11.5-14.5); RDW Standard Deviation 41.5 fL (36.4-46.3); Red Blood Count 4.95 M/uL (4.63-6.08); White Blood Count 8.78 K/ul (4.8-10.8)
[2022-03-25 06:52] LABS: Albumin Globulin Ratio 1.3 (0.9-2); Albumin Level 4.5 gm/dl (3.4-5.0); BUN Creatinine Ratio 9.7 (10-20); Bilirubin,Total 0.4 mg/dl (0.2-1.0); Calcium 9.6 mg/dl (8.5-10.1); Creatinine Clr Calc Pharmacy 105.6 ml/min; Globulin 3.4 gm/dl (2.5-4.0); Magnesium 1.9 mg/dl (1.7-2.4); Potassium 4.2 mmol/L (3.5-5.1); Total Protein 7.9 gm/dl (6.0-8.3)
[2022-03-25 06:54] LABS: Basophils # (auto) 0.01 K/uL (0-0.2); Basophils % (auto) 0.1 %; Immature Granulocytes # (auto) 0.02 K/uL (0.00-0.02); Immature Granulocytes % (auto) 0.2 %; Monocytes # (auto) 0.11 K/uL (0.24-0.82); Monocytes % (auto) 1.3 %; Neutrophils # (auto) 7.94 K/uL (1.4-6.5); Neutrophils % (auto) 90.4 %; Ovalocytes 1+
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
[2022-03-25] MEDS: POLYETHYLENE (MIRALAX) 17 GM PACK PO SCH ×2 (08:56→20:15)
[2022-03-25] MEDS: DOCUSATE SODIUM/SENNA 50/8.6MG TAB PO SCH (08:56)
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
[2022-03-25] MEDS: FAMOTIDINE 20 MG in SYRINGE 3 ML IV SCH ×2 (10:01→20:21)
--- NOTE | 2022-03-25 12:01 | Gastroenterology Progress Note ---
Date of Service March 25, 2022 Assessment & Plan (1) Foreign body in stomach: Plan: Will plan EGD tomorrow since smaller objects present and those may be the sharp ones. Present on Admission?: Yes Admission and Anticipated Discharge Date Admission Date: March 25, 2022 Subjective Unable to do procedure today due to inability to consent after having had anesthesia. KUB this morning shows washer still present as well as some other radioopaque objects. Results & Data ([facility]) Vital Signs (Past 12 Hours) Vital Signs Temp Pulse Resp BP BP Pulse Ox Pulse Ox 03/25/22 11:27 36.8 C 107 H 17 124/70 100 03/25/22 08:13 36.8 C 72 16 135/82 100 03/25/22 05:16 36.5 C 72 16 120/77 96 03/25/22 04:10 36.5 C 67 16 112/71 100 03/25/22 02:10 03/25/22 02:10 98 03/25/22 02:10 03/25/22 02:10 36.6 C 73 16 123/73 98 03/25/22 03:15 36.4 C L 70 16 110/67 94 03/25/22 02:46 72 16 116/68 99 03/25/22 02:10 36.6 C 73 16 123/73 98 03/25/22 01:40 36.8 C 79 16 152/87 H 98 03/25/22 01:30 36.8 C 81 16 117/86 98 03/25/22 02:00 36.8 C 70 16 134/83 97 03/25/22 01:50 36.8 C 89 16 132/79 98 03/25/22 01:20 36.8 C 81 16 148/93 H 99 03/25/22 00:00 84 16 147/78 H 98 O2 Del Method O2 Del Method O2 Flow Rate 03/25/22 11:27 Room Air 03/25/22 08:13 Room Air 03/25/22 05:16 Room Air 03/25/22 04:10 Room Air 03/25/22 02:10 Room Air 03/25/22 02:10 Room Air 03/25/22 02:10 Room Air 03/25/22 02:10 Room Air 03/25/22 03:15 Room Air 03/25/22 02:46 Room Air 03/25/22 02:10 Room Air 03/25/22 01:40 Room Air 03/25/22 01:30 Room Air 03/25/22 02:00 03/25/22 01:50 03/25/22 01:20 Oxymask 4 03/25/22 00:00 Room Air
--- NOTE | 2022-03-25 12:02 | XRay Report ---
KUB CLINICAL HISTORY: Foreign body ingestions. FINDINGS: An AP supine abdominal radiograph is compared to abdominal radiograph and CT dated 2. There is a nonobstructive abdominal bowel gas pattern. Moderate fecal retention seen throughout th e colon. There are at least 3 indeterminate radiodense foreign bodies projecting over the left upper quadrant. No additional radiodense foreign body projects over the right lower quadrant. Another indet erminate density projecting over the right mid abdomen may represent a slightly hyperdense foreign allen dy. No evidence of intracranial free air is seen. There are no abnormal abdominal calcifications. Sut ure material is seen below the left hemidiaphragm. The bony structures appear intact. IMPRESSION: There are at least 4 radiodense foreign bodies as detailed above. Electronically signed by: Henrique Slaughter M.D. 03/25/2022 12:01 PM
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
[2022-03-25] MEDS: ACETAMINOPHEN 1,000 MG/100 ML VIAL IV PRN (16:20)
[2022-03-25] MEDS: SODIUM CHLORIDE 0.9% 1000ML 1,000 ML IV SCH (16:47)
--- NOTE | 2022-03-25 17:22 | Anesthesiology Consultation ---
Date of Service March 25, 2022 Assessment & Plan Chart Review Chart Review: Acceptable Risk for Surgery and Patient NOT seen in Pre Admission Testing Consults Requested none ASA ASA3 Proposed Anesthesia Anesthesia Type: General History Surgery Operation Date: 03/25/22 00:15 Proposed Procedures p Cystoscopy - José Luis Burton DO Operation Date: 03/25/22 10:35 Proposed Procedures p Esophagogastroduodenoscopy - Henri Anderson Jr, MD Operation Date: 03/26/22 09:40 Proposed Procedures p Esophagogastroduodenoscopy Foreign Body Removal - Henri Anderson Jr, MD Height/Weight Height: 5 ft 10 in Weight: 90.2 kg Allergies Allergy/AdvReac Type Severity Reaction Status Date / Time No Known Allergies Allergy Verified 03/25/22 00:50 Medications Home Medications Medication Instructions Recorded Confirmed Last Taken haloperidol 10 mg tablet 10 mg PO HS 03/25/22 03/25/22 03/23/22 haloperidol 5 mg tablet 5 mg PO HS 03/25/22 03/25/22 03/23/22 lithium carbonate 300 mg capsule 300 mg PO BID 03/25/22 03/25/22 03/24/22 06:30 mirtazapine 45 mg tablet 45 mg PO HS 03/25/22 03/25/22 03/23/22 paroxetine HCl 10 mg tablet 10 mg PO HS 03/25/22 03/25/22 03/23/22 paroxetine HCl 20 mg tablet 20 mg PO HS 03/25/22 03/25/22 03/23/22 polyethylene glycol 3350 17 gram 17 g PO BID 03/25/22 03/25/22 03/24/22 06:30 oral powder packet (Miralax) Active Medications Generic Name Dose Route Start Last Admin Trade Name Freq PRN Reason Stop Dose Admin Haloperidol 3 mg 03/25/22 02:45 03/25/22 03:28 Haloperidol 1 Mg Tab PO 04/24/22 02:44 Not Given HS WAYNE Haloperidol 5 mg 03/25/22 02:45 03/25/22 03:29 Haloperidol 5 Mg Tab PO 04/24/22 02:44 Not Given HS WAYNE Ceftriaxone Sodium 2,000 mg/ 70 mls @ 100 mls/hr 03/25/22 00:30 03/25/22 04:54 Dextrose IV 04/04/22 00:29 Infused Q24H WAYNE Infusion Protocol Famotidine 20 mg/ Syringe 5 mls @ 2.5 mls/min 03/25/22 09:00 03/25/22 10:01 IV 04/24/22 08:59 2.5 mls/min Q12 WAYNE Administration Acetaminophen 1,000 mg in 100 mls @ 400 mls/hr 03/25/22 02:19 03/25/22 16:47 Ofirmev IV 03/28/22 02:18 Infused Q8H PRN Infusion Pain or Fever Sodium Chloride 1,000 mls @ 80 mls/hr 03/25/22 16:15 03/25/22 16:47 Nss 1000ml IV 04/24/22 16:14 80 mls/hr .[id number] WAYNE Administration Mirtazapine 45 mg 03/25/22 02:45 03/25/22 03:29 Mirtazapine Tab 15 Mg Tab PO 04/24/22 02:44 Not Given HS WAYNE Paroxetine HCl 30 mg 03/25/22 02:45 03/25/22 03:29 Paroxetine Hcl 20 Mg Tab PO 04/24/22 02:44 Not Given HS WAYNE Polyethylene Glycol 17 gm 03/25/22 09:00 03/25/22 08:56 Polyethylene (Miralax) 17 Gm Pack PO 04/24/22 08:59 Not Given BID WAYNE Senna/Docusate Sodium 2 tab 03/25/22 09:00 03/25/22 08:56 Docusate Sodium/Senna 50/8.6mg Tab PO 04/24/22 08:59 Not Given QAM WAYNE NPO Date Last Intake of Fluids: 03/25/22 Time Last Intake of Fluids: 02:10 Date Last Intake of Solids: 03/25/22 Time Last Intake of Solids: 02:10 Past Medical History Medical History Anxiety Depression Foreign body in urethra H/O swallowed foreign body Schizophrenia Suicidal ideation Exercise / Class Metabolic Activity II 4-5 Yardwork/Stairs/Walk up hill Past Surgical History Surgical History H/O esophagogastroduodenoscopy Past Anesthesia History No Hx of Anesthesia Complications and No Family Hx of Anesthesia Complications History of PONV No Hx of PONV and No Hx of Motion Sickness Social History Smoking Status: Never smoker tobacco type: cigarettes Do You Dip or Chew Tobacco: No Hx Alcohol Use: No Hx Substance Use: No substance use type: does not use Physical Exam Vital Signs Last Vital Signs Temp 36.9 C 03/25/22 15:55 Pulse 79 03/25/22 15:55 Resp 16 03/25/22 15:55 BP 126/70 03/25/22 15:55 Pulse Ox 100 03/25/22 15:55 O2 Del Method 03/25/22 15:55 O2 Flow Rate 4 03/25/22 01:20 Testing Laboratory Results 03/25/22 05:39 03/25/22 05:39 PT 11.1 Seconds (9.0-12.0) 03/24/22 20:48 INR 1.0 (0.9-1.1) 03/24/22 20:48 APTT 24.6 Seconds (21.0-31.0) 03/24/22 20:48 Urine Color Yellow 03/25/22 Unknown Urine Appearance Slightly Cloudy (Clear) A 03/25/22 Unknown Urine pH 8.0 (4.5-7.5) H 03/25/22 Unknown Ur Specific [place] > 1.045 (1.000-1.030) H 03/25/22 Unknown Urine Protein Negative (Negative) 03/25/22 Unknown Urine Glucose (UA) Negative (Negative) 03/25/22 Unknown Urine Ketones Negative (Negative) 03/25/22 Unknown Urine Nitrite Negative (Negative) 03/25/22 Unknown Ur Leukocyte Esterase 2+ (Negative) H 03/25/22 Unknown Urine WBC (Auto) >30 /hpf (0-5) H 03/25/22 Unknown Urine RBC (Auto) 0-4 /hpf (0-4) 03/25/22 Unknown U Hyaline Cast (Auto) 1-5 /lpf (0-5) 03/25/22 Unknown U Epithel Cells (Auto) 5-10 /lpf (0-5) H 03/25/22 Unknown Urine Bacteria (Auto) Negative (Negative) 03/25/22 Unknown
[2022-03-25] MEDS: KETOROLAC 30 MG/ML VIAL IV PRN (17:42)
[2022-03-26] MEDS: SODIUM CHLORIDE 0.9% 1000ML 1,000 ML IV SCH ×2 (05:25→20:15)
[2022-03-26 07:50] LABS: Basophils # (auto) 0.02 K/uL (0-0.2); Basophils % (auto) 0.3 %; Eosinophils # (auto) 0.03 K/uL (0-0.50); Eosinophils % (auto) 0.4 %; Hematocrit (blood only) 36.5 % (40.1-51.0); Hemoglobin 11.4 g/dl (14.0-18.0); Immature Granulocytes # (auto) 0.01 K/uL (0.00-0.02); Immature Granulocytes % (auto) 0.1 %; Lymphocytes # (auto) 1.72 K/uL (1.2-3.4); Lymphocytes % (auto) 23.7 %; Mean Corpuscular Hemoglobin 24.4 pg (25.0-34.0); Mean Corpuscular Hgb Conc 31.2 g/dL (32.0-36.0); Monocytes # (auto) 0.56 K/uL (0.24-0.82); Monocytes % (auto) 7.7 %; Neutrophils # (auto) 4.93 K/uL (1.4-6.5); Neutrophils % (auto) 67.8 %; Platelet Count 212 K/uL (130-400); RDW Coefficient of Variation 14.5 % (11.5-14.5); RDW Standard Deviation 40.5 fL (36.4-46.3); Red Blood Count 4.68 M/uL (4.63-6.08); White Blood Count 7.27 K/ul (4.8-10.8)
[2022-03-26] MEDS: FAMOTIDINE 20 MG in SYRINGE 3 ML IV SCH ×2 (07:51→21:55)
[2022-03-26] MEDS: POLYETHYLENE (MIRALAX) 17 GM PACK PO SCH (07:51)
[2022-03-26] MEDS: DOCUSATE SODIUM/SENNA 50/8.6MG TAB PO SCH (07:51)
[2022-03-26] MEDS: KETOROLAC 30 MG/ML VIAL IV PRN ×2 (08:04→16:42)
[2022-03-26 08:29] LABS: Albumin Globulin Ratio 1.3 (0.9-2); Albumin Level 3.8 gm/dl (3.4-5.0); BUN Creatinine Ratio 10.3 (10-20); Bilirubin,Total 0.4 mg/dl (0.2-1.0); Calcium 8.9 mg/dl (8.5-10.1); Creatinine Clr Calc Pharmacy 112.9 ml/min; Est GFR (Non-African American) 88.9 ml/min; Potassium 3.5 mmol/L (3.5-5.1); Total Protein 6.8 gm/dl (6.0-8.3)
[2022-03-26] MEDS: ACETAMINOPHEN 1,000 MG/100 ML VIAL IV PRN (12:59)
[2022-03-26] MEDS ORDERED: PROPOFOL IV EMULSION 10 MG/ML 20 ML VIAL IV ONE (13:47)
[2022-03-26] MEDS ORDERED: fentaNYL citrate 100 MCG/2 ML VIAL ONE (13:48)
[2022-03-26] MEDS ORDERED: MIDAZOLAM HCL 1 MG/ML 2ML VIAL ONE (13:58)
--- NOTE | 2022-03-26 14:04 | History & Physical Report ---
Date of Service March 26, 2022 Assessment & Plan (1) Foreign body in stomach: Plan Foreign body ingestion. Needs EGD with removal. Procedure and risks discussed with patient Admission and Anticipated Discharge Date Admission Date: March 24, 2022 History of Present Illness Primary Care Provider: DA Mccain swallowed foreign body Allergies Allergy/AdvReac Type Severity Reaction Status Date / Time No Known Allergies Allergy Verified 03/25/22 00:50 Home Medications Medication Instructions Recorded Confirmed Type haloperidol 10 mg tablet 10 mg PO HS 03/25/22 03/25/22 History haloperidol 5 mg tablet 5 mg PO HS 03/25/22 03/25/22 History lithium carbonate 300 mg capsule 300 mg PO BID 03/25/22 03/25/22 History mirtazapine 45 mg tablet 45 mg PO HS 03/25/22 03/25/22 History paroxetine HCl 10 mg tablet 10 mg PO HS 03/25/22 03/25/22 History paroxetine HCl 20 mg tablet 20 mg PO HS 03/25/22 03/25/22 History polyethylene glycol 3350 17 gram 17 g PO BID 03/25/22 03/25/22 History oral powder packet (Miralax) Past Med/Surg History Medical History Anxiety Depression Foreign body in urethra H/O swallowed foreign body Schizophrenia Suicidal ideation Surgical History H/O esophagogastroduodenoscopy Social History Smoking Status: Never smoker Tobacco Type: Cigarettes Second Hand Exposure: No; Hx Alcohol Use: No Hx Substance Use: No Preferred Language: Yakut Communication Ability: Effective Surgical Services Manager Required: No Beliefs That Will Affect Care: None marital status: Single Current Living Situation: Other Current Living Situation Comment: DA Mccain. How many Children do You have: 0 Feels Safe at Home: Yes Assistive Devices: None Review of Systems All systems reviewed & are unremarkable except as noted in HPI & below Physical Exam Constitutional: well developed Eyes: PERRL, conjunctivae normal, anicteric sclerae Neck: trachea midline, no thyromegaly Respiratory: normal respiratory effort, lungs clear to auscultation Cardiovascular: RRR, no murmur, no edema Gastrointestinal (Abdomen): normal bowel sounds, soft, nontender, no hepatosplenomegaly ASA Classification ASA ASA2 Results & Data ([facility]) Vital Signs (Past 12 Hours) Vital Signs Temp Pulse Resp BP Pulse Ox O2 Del Method 03/26/22 13:43 37.6 C H 78 16 129/68 98 Room Air 03/26/22 07:17 36.7 C 66 16 135/76 100 Room Air Code Status & VTE Plan VTE Prophylaxis Plan VTE Prophylaxis will be ordered: Yes
[2022-03-26] MEDS ORDERED: ATROPINE SULFATE 0.1 MG/ML 10ML SYR IV PRN (14:25)
[2022-03-26] MEDS ORDERED: ONDANSETRON INJ 2 MG/ML 2 ML VIAL IV PRN (14:25)
[2022-03-26] MEDS ORDERED: ePHEDrine sulfate 50 MG/ML AMP IV PRN (14:25)
[2022-03-26] MEDS ORDERED: fentaNYL citrate 100 MCG/2 ML VIAL IV PRN (14:25)
--- NOTE | 2022-03-26 14:25 | Anesthesiology Consultation ---
Date of Service March 26, 2022 Assessment & Plan Chart Review Chart Review: Acceptable Risk for Surgery and Patient NOT seen in Pre Admission Testing Consults Requested none ASA ASA2 Proposed Anesthesia Anesthesia Type: General Risk / Benefits Reviewed With: PT / POA / Parent / Guardian, Accepts Plan and Informed Consent Obtained History Surgery Operation Date: 03/25/22 00:15 Proposed Procedures p Cystoscopy - José Luis Burton DO Operation Date: 03/25/22 10:35 Proposed Procedures p Esophagogastroduodenoscopy - Henri Anderson Jr, MD Operation Date: 03/26/22 09:40 Proposed Procedures p Esophagogastroduodenoscopy Foreign Body Removal - Henri Anderson Jr, MD Height/Weight Height: 5 ft 10 in Weight: 90.2 kg Allergies Allergy/AdvReac Type Severity Reaction Status Date / Time No Known Allergies Allergy Verified 03/25/22 00:50 Medications Home Medications Medication Instructions Recorded Confirmed Last Taken haloperidol 10 mg tablet 10 mg PO HS 03/25/22 03/25/22 03/23/22 haloperidol 5 mg tablet 5 mg PO HS 03/25/22 03/25/22 03/23/22 lithium carbonate 300 mg capsule 300 mg PO BID 03/25/22 03/25/22 03/24/22 06:30 mirtazapine 45 mg tablet 45 mg PO HS 03/25/22 03/25/22 03/23/22 paroxetine HCl 10 mg tablet 10 mg PO HS 03/25/22 03/25/22 03/23/22 paroxetine HCl 20 mg tablet 20 mg PO HS 03/25/22 03/25/22 03/23/22 polyethylene glycol 3350 17 gram 17 g PO BID 03/25/22 03/25/22 03/24/22 06:30 oral powder packet (Miralax) Active Medications Generic Name Dose Route Start Last Admin Trade Name Freq PRN Reason Stop Dose Admin Haloperidol 3 mg 03/25/22 02:45 03/25/22 20:13 Haloperidol 1 Mg Tab PO 04/24/22 02:44 3 mg HS WAYNE Administration Haloperidol 5 mg 03/25/22 02:45 03/25/22 20:14 Haloperidol 5 Mg Tab PO 04/24/22 02:44 5 mg HS WAYNE Administration Ceftriaxone Sodium 2,000 mg/ 70 mls @ 100 mls/hr 03/25/22 00:30 03/26/22 00:18 Dextrose IV 04/04/22 00:29 Infused Q24H WAYNE Infusion Protocol Famotidine 20 mg/ Syringe 5 mls @ 2.5 mls/min 03/25/22 09:00 03/26/22 07:51 IV 04/24/22 08:59 2.5 mls/min Q12 WAYNE Administration Acetaminophen 1,000 mg in 100 mls @ 400 mls/hr 03/25/22 02:19 03/26/22 13:26 Ofirmev IV 03/28/22 02:18 Infused Q8H PRN Infusion Pain or Fever Sodium Chloride 1,000 mls @ 80 mls/hr 03/25/22 16:15 03/26/22 13:27 Nss 1000ml IV 04/24/22 16:14 0 mls/hr .[id number] WAYNE Infusion Ketorolac Tromethamine 30 mg 03/25/22 16:56 03/26/22 08:04 Ketorolac 30 Mg/Ml Vial IV 03/30/22 16:55 30 mg Q6H PRN Administration Pain Mirtazapine 45 mg 03/25/22 02:45 03/25/22 20:13 Mirtazapine Tab 15 Mg Tab PO 04/24/22 02:44 45 mg HS WAYNE Administration Paroxetine HCl 30 mg 03/25/22 02:45 03/25/22 20:14 Paroxetine Hcl 20 Mg Tab PO 04/24/22 02:44 30 mg HS WAYNE Administration Polyethylene Glycol 17 gm 03/25/22 09:00 03/26/22 07:51 Polyethylene (Miralax) 17 Gm Pack PO 04/24/22 08:59 Not Given BID WAYNE Senna/Docusate Sodium 2 tab 03/25/22 09:00 03/26/22 07:51 Docusate Sodium/Senna 50/8.6mg Tab PO 04/24/22 08:59 Not Given QAM WAYNE NPO Date Last Intake of Fluids: 03/26/22 Time Last Intake of Fluids: 23:59 Date Last Intake of Solids: 03/26/22 Time Last Intake of Solids: 23:59 Past Medical History Medical History Anxiety Depression Foreign body in urethra H/O swallowed foreign body Schizophrenia Suicidal ideation Exercise / Class Metabolic Activity II 4-5 Yardwork/Stairs/Walk up hill Past Surgical History Surgical History H/O esophagogastroduodenoscopy Past Anesthesia History No Hx of Anesthesia Complications and No Family Hx of Anesthesia Complications History of PONV No Hx of PONV and No Hx of Motion Sickness Social History Smoking Status: Never smoker tobacco type: cigarettes Do You Dip or Chew Tobacco: No Hx Alcohol Use: No Hx Substance Use: No substance use type: does not use Physical Exam Vital Signs Last Vital Signs Temp 37.6 C H 03/26/22 13:43 Pulse 78 03/26/22 13:43 Resp 16 03/26/22 13:43 BP 129/68 03/26/22 13:43 Pulse Ox 98 03/26/22 13:43 O2 Del Method 03/26/22 13:43 O2 Flow Rate 4 03/25/22 01:20 ENMT Mouth: no dentition abnormality Thyromental Distance: > or= 3.5 Finger Breadths Mallampati Class: II Neck normal visual inspection Respiratory normal respiratory effort Auscultation: lungs clear to auscultation bilaterally Cardiovascular Rate/Rhythm: regular rate and regular rhythm Psychiatric Orientation: alert Testing Laboratory Results 03/26/22 07:29 03/26/22 07:29 PT 11.1 Seconds (9.0-12.0) 03/24/22 20:48 INR 1.0 (0.9-1.1) 03/24/22 20:48 APTT 24.6 Seconds (21.0-31.0) 03/24/22 20:48 Urine Color Yellow 03/25/22 Unknown Urine Appearance Slightly Cloudy (Clear) A 03/25/22 Unknown Urine pH 8.0 (4.5-7.5) H 03/25/22 Unknown Ur Specific Dowell > 1.045 (1.000-1.030) H 03/25/22 Unknown Urine Protein Negative (Negative) 03/25/22 Unknown Urine Glucose (UA) Negative (Negative) 03/25/22 Unknown Urine Ketones Negative (Negative) 03/25/22 Unknown Urine Nitrite Negative (Negative) 03/25/22 Unknown Ur Leukocyte Esterase 2+ (Negative) H 03/25/22 Unknown Urine WBC (Auto) >30 /hpf (0-5) H 03/25/22 Unknown Urine RBC (Auto) 0-4 /hpf (0-4) 03/25/22 Unknown U Hyaline Cast (Auto) 1-5 /lpf (0-5) 03/25/22 Unknown U Epithel Cells (Auto) 5-10 /lpf (0-5) H 03/25/22 Unknown Urine Bacteria (Auto) Negative (Negative) 03/25/22 Unknown 03/25/22 Unknown Urine Culture - Final Urine,Clean Catch Three types or organisms present, all moderate counts probable skin jerilyn. No further identifications or sensitivities to follow.
--- NOTE | 2022-03-26 14:37 | Post Operative Brief Note ---
Immediate Post Op Note v1 Date of Surgery March 26, 2022 Pre & Post Diagnosis Operation Date: 03/25/22 00:15 Pre-Op Diagnosis: Foreign Body Post-Op Diagnosis: Foreign Body Operation Date: 03/25/22 10:35 <No data on this case meets the specified criteria> Operation Date: 03/26/22 09:40 <No data on this case meets the specified criteria> I identified the patient and participated in the time-out.: Yes Procedure Operation Date: 03/25/22 00:15 Actual Procedures p Cystoscopy, Removal of Foreign Body - José Luis Burton DO Operation Date: 03/25/22 10:35 <No data on this case meets the specified criteria> Operation Date: 03/26/22 09:40 <No data on this case meets the specified criteria> Surgeon Henri Anderson Jr, Preparation Supervisor Canning None Estimated Blood Loss 1 Findings Consistent with Post-Op Diagnosis Foreign body in stomach--parts of headphone and half of a washer. These were tied together into a "T" shape. Grasped with rat toothed forceps and would not pass through Upper esophagaeal sphincter. Wedged into esophagus and difficult to pass back into stomach. Photos taken. Needs surgical consultation Anesthesia Type General Disposition Disposition: Recovery Room Overlapping Procedure I was immediately available: during the entire case.
--- NOTE | 2022-03-26 14:48 | GI REPORT ---
Patient Name: Stefan Simon Procedure Date: 03/26/2022 1:50 PM Date of : 2000 Admit Type: Inpatient Age: 22 Gender: Male Attending MD: Henri Anderson MD Procedure: Upper GI endoscopy Providers: Henri Anderson MD, Henri Anderson MD Referring MD: Anthony Gross Indications: Foreign body in the stomach Medicines: General Anesthesia Complications: No immediate complications. Estimated Blood Loss: Estimated blood loss: none. Procedure: Pre-Anesthesia Assessment: - Prior to the procedure, a History and Physical was performed, and patient medications and allergies were reviewed. The patient's tolerance of previous anesthesia was also reviewed. The risks and benefits of the procedure and the sedation options and risks were discussed with the patient. All questions were answered, and informed consent was obtained. Prior Anticoagulants: The patient has taken no previous anticoagulant or antiplatelet agents. ASA Grade Assessment: II - A patient with mild systemic disease. After reviewing the risks and benefits, the patient was deemed in satisfactory condition to undergo the procedure. After obtaining informed consent, the endoscope was passed under direct vision. Throughout the procedure, the patient's blood pressure, pulse, and oxygen saturations were monitored continuously. The Endoscope was introduced through the and advanced to the. The Endoscope was introduced through the mouth, and advanced to the body of the stomach. The upper GI endoscopy was accomplished without difficulty. The patient tolerated the procedure well. Findings: The examined esophagus was normal. 3 CM piece of plastic tied to piece of headphones and tied to half of a washer were found in the gastric body. These were grasped with rat-toothed forceps and pulled up through the esophagus. However the way they were attached to each other prevented extraction through upper esophageal sphincter. These became wedged in the esophagus and had to be manipulated to be advanced back into stomach. Impression: - Normal esophagus. - 3 CM piece of plastic tied to piece of headphones and tied to half of a washer were found in the stomach. - No specimens collected. Recommendation: - Observe patient's clinical course. Will need surgical consultation Henri Anderson MD 03/26/2022 2:48:22 PM Note Initiated On: 03/26/2022 1:50 PM Number of Addenda: 0 I attest to the content of the Intraoperative Record and orders documented therein, exceptions below {[id number]}
[2022-03-26] MEDS ORDERED: ONDANSETRON INJ 2 MG/ML 2 ML VIAL ONE (14:50)
[2022-03-26] MEDS ORDERED: SUCCINYLCHOLINE CHLORIDE 20 MG/ML 10 ML VIAL IV ONE (14:50)
--- NOTE | 2022-03-26 15:04 | Hospitalist Progress Note ---
Date of Service March 26, 2022 Assessment & Plan (1) Self-harming behavior: Plan: Recurrent issues with self-harm behavior as noted below. Continued psychiatric support at the residential when he returns (2) Foreign body in urethra: Plan: Foreign body in urethra- Debris removed by Dr. Burton urology in the OR at the time of admission. Treated with ceftriaxone 1 g IV daily. Urine culture negati ve to date. (3) Foreign body in stomach: Plan: Multiple foreign bodies noted on KUB. Gastroenterology consultation appreciated. EGD completed today, March 26 . There are multiple foreign bodies apparently tied together according to gastroenterology and the foreign body could not be removed endoscopically because it became wedged in the esophagus and had to be pushed back down into the stomach. Will consult general surgery for removal through open gastrotomy. (4) Schizophrenia: Plan: Schizophrenia/depression/anxiety. Continued psychiatry therapy at the residential. (5) Depression: Plan: Continue current medical management (6) Anxiety: Plan: Continue current medical management Plan Eventual discharge back to the residential Admission and Anticipated Discharge Date Admission Date: March 24, 2022 Subjective EGD attempt at removal of the gastric foreign body failed. He has multiple foreign bodies tied together apparently. We will consult general surgery. Continue clear liquids only for now. Review of Systems Review of Systems: Constitutional-no fever or chills ENT-no blurred vision, no double vision, no epistaxis, no sore throat Respiratory-no cough, no wheezing, no shortness of breath Cardiac-no palpitations, no chest pain, no syncope GI-no nausea, vomiting, diarrhea, melena, hematochezia -no urinary retention, no urinary incontinence, no dysuria, no hematuria Musculoskeletal-no joint pain, no muscle tenderness Skin-no bruising, no rashes, no pruritus Neuro-no isolated weakness, no paresthesia, no weakness Psych-no depression, no anxiety Physical Exam Physical Exam: General-alert, no fevers, no chills HEENT-head atraumatic and normocephalic, pupils equal and reactive to light, extraocular muscles intact Neck-no lymphadenopathy or thyromegaly, trachea midline Chest-clear to auscultation percussion. No rales wheezing or rhonchi Cardiac-regular rate and rhythm, normal S1 and S2, no murmurs Abdomen-normal bowel sounds, nontender, no hepatosplenomegaly Extremities-no cyanosis, clubbing, or edema Neuro-cranial nerves II through XII intact, motor and sensory function within normal limits, strength symmetrical , no focal deficits Psych-normal affect, normal mood Results & Data Results & Data ([facility]) Vital Signs (Past 12 Hours) Vital Signs Temp Pulse Pulse Resp BP Pulse Ox O2 Del Method 03/26/22 14:50 88 16 136/76 100 Room Air 03/26/22 14:42 37.2 C 100 H 19 143/76 H 99 Room Air 03/26/22 13:43 37.6 C H 78 16 129/68 98 Room Air 03/26/22 07:17 36.7 C 66 16 135/76 100 Room Air Laboratory Results 03/26/22 07:29 03/26/22 07:29 PG Care Time/CCT Total # of Minutes Spent Total Time Spent with Patient: Total time spent is greater than 50% in coordination of care (as documented) at patient's floor/unit and/or counseling patient: Coding Level of Care Code 43046 Subseq Hosp Care Lvl 3 Diagnoses Self-harming behavior Foreign body in urethra T19.0XXA Foreign body in stomach T18.2XXA Schizophrenia F20.0 Schizophrenia type: paranoid schizophrenia Depression F32.A Depression Type: unspecified Anxiety F41.9 (1) Schizophrenia Schizophrenia type: paranoid schizophrenia Qualified Code(s): F20.0 - Paranoid schizophrenia (2) Depression Depression Type: unspecified Qualified Code(s): F32.A - Depression, unspecified
--- NOTE | 2022-03-26 15:38 | Surgery Consultation ---
Date of Consultation March 26, 2022 Assessment & Plan (1) Foreign body in stomach: 22 year-old prisoner with multiple admissions here at [facility] for foreign body ingestion. Underwent EGD today for possible foreign body removal which failed given the multiple foreign bodies were tied to each other and would not pass the esophageal sphincter. He is current hemodynamically stable. Abdominal exam with some tenderness however no rigidity, rebound, peritonitis. There is no evidence of bowel obstruction secondary to foreign body ingestion. Plan: He has passed foreign bodies on prior admissions without needing surgical intervention. He is currently hemodynamically stable and abdomen is benign other than some tenderness on exam. Would recommend following with serial KUBs daily to follow the foreign bodies and hopefully avoid any surgical intervention. [facility]dc guards in the room stated that patient had just recently inserted another foreign body in his urethra. GI will need to be reconsulted made aware of this. Would keep n.p.o. for now Continue current medical management Dr. Paiz has seen and examined patient and agrees with above. Please see addendum for further recommendation/plan Supervising Physician Co-Signing Physician Notes I have seen and examined the patient and agree with the above assessment and plan. We have discussed the case with GI. Apparently, the edges are sharp and they were unable to remove the object as it was cutting into the stomach and esophagus. Unfortunately, he will require surgical exploration, gastrotomy, with removal of the object. I have discussed this with the patient, he understands and is agreeable with the plan. We will take him to the operating room at the earliest convenience. History of Present Illness Reason for Consultation: Foreign body in stomach, failed removal via EGD Requesting Physician: Anthony Gross MD Attending Physician: Anthony Gross MD History of Present Illness Mr. Simon is a 22-year-old incarcerated male who presented to the emergency department on Thursday due to foreign body ingestion as well as foreign body in the urethra. Patient underwent surgical urology management of the urethral foreign body and underwent attempted EGD today by gastroenterology for foreign body removal in the stomach. This was unsuccessful as there was multiple foreign bodies that were tied together and these were unable to be alice kassidy/passed through the upper esophageal sphincter. Our services have been consulted for possible foreign body removal. In review of patient's medical records here at [facility] he has had multiple admissions for foreign body ingestions which have passed on their own. He had a foreign body measuring about 3 cm that passed on its own on prior admission. He states that he has been having abdominal pain since admission. Had some blood in his stool early this morning. Pain has not increased or decreased. But states that he has a burning sensation in his stomach. Is asking if he could eat. He states that he had surgery done at [facility] for prior foreign body ingestion that got stuck in his small intestines. Allergies Allergy/AdvReac Type Severity Reaction Status Date / Time No Known Allergies Allergy Verified 03/25/22 00:50 Home Medications Medication Instructions Recorded Confirmed Type haloperidol 10 mg tablet 10 mg PO HS 03/25/22 03/25/22 History haloperidol 5 mg tablet 5 mg PO HS 03/25/22 03/25/22 History lithium carbonate 300 mg capsule 300 mg PO BID 03/25/22 03/25/22 History mirtazapine 45 mg tablet 45 mg PO HS 03/25/22 03/25/22 History paroxetine HCl 10 mg tablet 10 mg PO HS 03/25/22 03/25/22 History paroxetine HCl 20 mg tablet 20 mg PO HS 03/25/22 03/25/22 History polyethylene glycol 3350 17 gram 17 g PO BID 03/25/22 03/25/22 History oral powder packet (Miralax) Patient History Medical History Anxiety Depression Foreign body in urethra H/O swallowed foreign body Schizophrenia Suicidal ideation Surgical History H/O esophagogastroduodenoscopy Social History Smoking Status: Never smoker Tobacco Type: Cigarettes Second Hand Exposure: No; Hx Alcohol Use: No Hx Substance Use: No Preferred Language: Guinean Communication Ability: Effective Reconciler Required: No Beliefs That Will Affect Care: None marital status: Single Current Living Situation: Other Current Living Situation Comment: [facility]. How many Children do You have: 0 Feels Safe at Home: Yes Assistive Devices: None Review of Systems Review of Systems: All systems reviewed & are unremarkable except as noted in HPI & below Physical Exam Constitutional: WD/WN, vitals as above cooperative and comfortable; no acute distress and not ill appearing Neck: normal visual inspection and trachea midline Respiratory: normal respiratory effort; no respiratory distress, no labored br eathing and no retractions Gastrointestinal (Abdomen): Inspection/Auscultation: abdomen normal to inspection and + abdominal surgical scar (Laparoscopic scars present); abdomen not distended Percussion/Palpation: + abdomen tender (Mild tenderness) and abdomen soft; no guarding, abdomen not rigid and abdomen not firm No rigidity, rebound, peritonitis Skin: no rashes, warm and dry Psychiatric: Orientation: alert and oriented x 3 Results & Data ([facility]) Vital Signs (Past 12 Hours) Vital Signs Temp Pulse Pulse Resp BP Pulse Ox O2 Del Method 03/26/22 15:10 37.2 C 91 H 14 138/67 100 Room Air 03/26/22 15:00 92 H 14 142/75 H 100 Room Air 03/26/22 14:50 88 16 136/76 100 Room Air 03/26/22 14:42 37.2 C 100 H 19 143/76 H 99 Room Air 03/26/22 13:43 37.6 C H 78 16 129/68 98 Room Air 03/26/22 07:17 36.7 C 66 16 135/76 100 Room Air Laboratory Results 03/26/22 03/26/22 Range/Units 07:29 07:29 WBC 7.27 (4.8-10.8) K/ul RBC 4.68 (4.63-6.08) M/uL Hgb 11.4 L (14.0-18.0) g/dl Hct 36.5 L (40.1-51.0) % MCV 78.0 L (80.0-100.0) fL MCH 24.4 L (25.0-34.0) pg MCHC 31.2 L (32.0-36.0) g/dL RDW Std Deviation 40.5 (36.4-46.3) fL RDW Coeff of Bassem 14.5 (11.5-14.5) % Plt Count 212 (130-400) K/uL MPV 11.0 (9.4-12.4) fL Immature Gran % (Auto) 0.1 % Neut % (Auto) 67.8 % Lymph % (Auto) 23.7 % Hudson % (Auto) 7.7 % Eos % (Auto) 0.4 % Baso % (Auto) 0.3 % Neut # (Auto) 4.93 (1.4-6.5) K/uL Lymph # (Auto) 1.72 (1.2-3.4) K/uL Hudson # (Auto) 0.56 (0.24-0.82) K/uL Eos # (Auto) 0.03 (0-0.50) K/uL Baso # (Auto) 0.02 (0-0.2) K/uL Immature Gran # (Auto) 0.01 (0.00-0.02) K/uL Sodium 140 (136-145) mmol/L Potassium 3.5 (3.5-5.1) mmol/L Chloride 106 (98-107) mmol/L Carbon Dioxide 28 (21-32) mmol/L Anion Gap 6 (3-11) BUN 12 (6-23) mg/dl Creatinine 1.16 (0.6-1.4) mg/dl Est Cr Clr Drug Dosing 112.9 ml/min Est GFR ( Amer) 103.0 ml/min Est GFR (Non-Af Amer) 88.9 ml/min BUN/Creatinine Ratio 10.3 (10-20) Glucose 88 (70-99(Fasting)) mg/dl Calcium 8.9 (8.5-10.1) mg/dl Magnesium 2.0 (1.7-2.4) mg/dl Total Bilirubin 0.4 (0.2-1.0) mg/dl AST 23 (13-39) U/L ALT 44 (7-52) U/L Alkaline Phosphatase 64 (34-104) U/L Total Protein 6.8 (6.0-8.3) gm/dl Albumin 3.8 (3.4-5.0) gm/dl Globulin 3.0 (2.5-4.0) gm/dl Albumin/Globulin Ratio 1.3 (0.9-2) Diagnostic Findings KUB CLINICAL HISTORY: Foreign body ingestions. FINDINGS: An AP supine abdominal radiograph is compared to abdominal radiograph and CT dated 03/24/2022. There is a nonobstructive abdominal bowel gas pattern. Moderate fecal retention seen throughout the colon. There are at least 3 indeterminate radiodense foreign bodies projecting over the left upper quadrant. No additional radiodense foreign body projects over the right lower quadrant. Another indeterminate density projecting over the right mid abdomen may represent a slightly hyperdense foreign body. No evidence of intracranial free air is seen. There are no abnormal abdominal calcifications. Suture material is seen below the left hemidiaphragm. The bony structures appear intact. IMPRESSION: There are at least 4 radiodense foreign bodies as detailed above. CT OF THE ABDOMEN AND PELVIS WITH CONTRAST CLINICAL HISTORY: Swallowed foreign body. Placed pen and staple in urethra. COMPARISON STUDY: CT of the abdomen and pelvis February 08, 2022. TECHNIQUE: Following IV administration of 94 mL of Optiray, axial images of the abdomen and pelvis were obtained from the lung bases to the proximal femurs. Images were reviewed in the axial, sagittal, and coronal planes. IV contrast was administered without complication. Automated exposure control was utilized for the study. A dose lowering technique was utilized adhering to the principles of ALARA. CT DOSE: 380.91 mGy.cm FINDINGS: Trace bilateral pleural effusions within the lower lungs are noted. No pneumatosis, free air or portal venous gas is present. The liver, spleen, adrenal glands, kidneys and pancreas are unremarkable. There are postoperative findings of the stomach. Note is made of multiple metallic foreign bodies within the stomach. A circular metallic foreign body measures 2.7 cm. There is also an elongated foreign body within the stomach. There is no evidence for a bowel obstruction. Note is made of a 10 cm radiodensity within the urethra. This also reflects a foreign body. No additional foreign bodies are identified. Major vasculature is patent. IMPRESSION: 1. Multiple foreign bodies within the stomach, as described above. 2. 10 cm elongated foreign body within the urethra consistent with a pen. 3. No free air. No bowel obstruction.
--- NOTE | 2022-03-26 15:38 | Anesthesiology Progress Note ---
Date of Service March 26, 2022 Anesthesia Post Procedure Vital Signs Vital Signs: Temp Pulse Pulse Pulse Resp BP BP 03/26/22 15:20 37.2 C 99 H 16 130/70 03/26/22 15:10 37.2 C 91 H 14 138/67 03/26/22 15:00 92 H 14 142/75 H 03/26/22 14:50 88 16 136/76 03/26/22 14:42 37.2 C 100 H 19 143/76 H 03/26/22 13:43 37.6 C H 78 16 129/68 03/26/22 07:17 36.7 C 66 16 135/76 03/25/22 20:15 03/25/22 20:15 03/25/22 23:29 36.6 C 72 16 115/69 03/25/22 20:11 36.8 C 81 16 121/64 03/25/22 18:22 37 C 84 16 110/68 03/25/22 17:45 37.0 C 84 16 110/68 03/25/22 15:55 36.9 C 79 16 126/70 Pulse Ox Pulse Ox O2 Del Method O2 Del Method 03/26/22 15:20 100 Room Air 03/26/22 15:10 100 Room Air 03/26/22 15:00 100 Room Air 03/26/22 14:50 100 Room Air 03/26/22 14:42 99 Room Air 03/26/22 13:43 98 Room Air 03/26/22 07:17 100 Room Air 03/25/22 20:15 Room Air 03/25/22 20:15 98 Room Air 03/25/22 23:29 98 Room Air 03/25/22 20:11 97 Room Air 03/25/22 18:22 03/25/22 17:45 99 Room Air 03/25/22 15:55 100 Room Air Pain Intensity Abdomen: Pain Intensity: 10 Transfer of Care Handoff Completed per policy Notes Mental Status: alert / awake / arousable Patient Amnestic to Procedure: Yes Nausea / Vomiting: adequately controlled Pain: adequately controlled Airway Patency, RR, SpO2: stable & adequate BP & HR: stable & adequate Hydration State: stable & adequate Anesthetic Complications: no major complications apparent
[2022-03-26] MEDS: haloperidoL 1 MG TAB PO SCH (23:09)
[2022-03-26] MEDS: LITHIUM CARBONATE 300 MG TAB PO SCH (23:10)
[2022-03-26] MEDS: MIRTAZAPINE TAB 15 MG TAB PO SCH (23:10)
[2022-03-26] MEDS: haloperidoL 5 MG TAB PO SCH (23:10)
[2022-03-26] MEDS: PARoxetine HCL 20 MG TAB PO SCH (23:11)
[2022-03-27] MEDS: cefTRIAXone SODIUM 2,000 MG in DEXTROSE 5% 50 ML IV SCH (01:25)
[2022-03-27 07:00] LABS: Basophils # (auto) 0.02 K/uL (0-0.2); Basophils % (auto) 0.4 %; Eosinophils # (auto) 0.09 K/uL (0-0.50); Eosinophils % (auto) 1.8 %; Hematocrit (blood only) 35.9 % (40.1-51.0); Immature Granulocytes # (auto) 0.01 K/uL (0.00-0.02); Immature Granulocytes % (auto) 0.2 %; Lymphocytes # (auto) 1.84 K/uL (1.2-3.4); Lymphocytes % (auto) 35.9 %; Mean Corpuscular Hemoglobin 24.2 pg (25.0-34.0); Mean Corpuscular Hgb Conc 30.6 g/dL (32.0-36.0); Mean Corpuscular Volume 79.1 fL (80.0-100.0); Monocytes # (auto) 0.49 K/uL (0.24-0.82); Monocytes % (auto) 9.6 %; Neutrophils # (auto) 2.67 K/uL (1.4-6.5); Neutrophils % (auto) 52.1 %; Platelet Count 208 K/uL (130-400); RDW Coefficient of Variation 14.5 % (11.5-14.5); RDW Standard Deviation 41.7 fL (36.4-46.3); Red Blood Count 4.54 M/uL (4.63-6.08); White Blood Count 5.12 K/ul (4.8-10.8)
[2022-03-27 07:25] LABS: Albumin Globulin Ratio 1.2 (0.9-2); Albumin Level 3.7 gm/dl (3.4-5.0); BUN Creatinine Ratio 7.8 (10-20); Bilirubin,Total 0.3 mg/dl (0.2-1.0); Calcium 8.8 mg/dl (8.5-10.1); Creatinine Clr Calc Pharmacy 101.5 ml/min; Est GFR (African American) 90.6 ml/min; Est GFR (Non-African American) 78.2 ml/min; Globulin 3.2 gm/dl (2.5-4.0); Magnesium 1.9 mg/dl (1.7-2.4); Potassium 3.6 mmol/L (3.5-5.1); Total Protein 6.9 gm/dl (6.0-8.3)
[2022-03-27] MEDS: LITHIUM CARBONATE 300 MG TAB PO SCH ×2 (08:07→21:38)
[2022-03-27] MEDS: DOCUSATE SODIUM/SENNA 50/8.6MG TAB PO SCH (08:07)
[2022-03-27] MEDS: FAMOTIDINE 20 MG in SYRINGE 3 ML IV SCH ×2 (08:07→19:59)
[2022-03-27] MEDS: SODIUM CHLORIDE 0.9% 1000ML 1,000 ML IV SCH ×2 (09:11→18:18)
--- NOTE | 2022-03-27 11:51 | Hospitalist Progress Note ---
Date of Service March 27, 2022 Assessment & Plan (1) Self-harming behavior: Plan: - Recurrent issues with self-harm behavior as noted below Observational time, guards in room with patient No foreign material, detachable material, small pieces/parts should be in arms raised with patient at any time. This includes drawstrings to close/waistbands, EKG stickers, and any loose material. Patient has a recurrent history of quickly ingesting or placing foreign materials into orifices. (2) Foreign body in urethra: Plan: Foreign body in urethra- Debris removed by Dr. Burton urology in the OR during admission Ceftriaxone 1 g IV daily UC with multiple counts. Given trauma will complete 5 days of empiric Rocephin for prophylaxis. LR at 80 mils per hour x1 L Second foreign body placed, urology consulted. Small piece of broken plastic spoon removed on cystoscopy 03/27 Appreciate assistance in management (3) Foreign body in stomach: Plan: Underwent EGD 03/26. Normal esophagus. 3 cm piece of plastic tied to a piece of headphones, half a washer and stomach. This was unable to be extracted through upper esophageal sphincter due to wedging in the esophagus. Surgery subsequently consulted. Noted to have passed foreign bodies similar on prior admissions and remains hemodynamically stable abdomen some tenderness. No emergent surgical intervention, but KUB failed to show progression and patient was taken for operative removal - S/p gastrotomy and foreign body removal (2 pieces been tied together with plastic washers) 03/27/2022 (4) Schizophrenia: Plan: Schizophrenia/depression/anxiety Continue [facility]ORMAN medications, n.p.o. with medications at this time (5) Depression: Plan: See above (6) Anxiety: Plan: See above Admission and Anticipated Discharge Date Admission Date: March 24, 2022 Subjective Seen at bedside. Continues to have epigastric discomfort, some generalized right and left quadrant achy pain. Denies fever, chills, sweats, lightheadedness, dizziness. No vomiting. No bowel movement yet. Had his x-ray taken this morning. Denies other foreign body ingestion since previous exam. Review of Systems 2 Review of Systems: All systems reviewed & are unremarkable except as noted in Subjective Physical Exam Physical Exam: General: A&Ox3. NAD. Cooperative. HEENT: Atraumatic, normocephalic. Vision and hearing grossly intact Pulm: CTAB A&P. -wheezes, -rales, -rhonchi. Symmetrical chest rise. No increase in work of breathing. No respiratory distress. Cardiac: RRR, -mrg. Radial pulses intact and symmetrical. Abdominal: Mildly tender in epigastrium, right and left quadrants without rebound tenderness or guarding. Post lap scars present, well-healed Results & Data Results & Data ([facility]) Vital Signs (Past 12 Hours) Vital Signs Temp Pulse Resp BP Pulse Ox Pulse Ox O2 Del Method 03/27/22 11:42 37 C 72 16 123/77 100 Room Air 03/27/22 07:30 Room Air 03/27/22 07:30 98 03/27/22 07:19 36.7 C 57 L 16 124/82 98 Room Air 03/27/22 03:35 36.5 C 62 16 121/78 98 Room Air O2 Del Method 03/27/22 11:42 03/27/22 07:30 03/27/22 07:30 Room Air 03/27/22 07:19 03/27/22 03:35 PG Care Time/CCT Total # of Minutes Spent Total Time Spent with Patient: Total time spent is greater than 50% in coordination of care (as documented) at patient's floor/unit and/or counseling patient: Coding Level of Care Code 11934 Subseq Hosp Care Lvl 2 Diagnoses Self-harming behavior Foreign body in urethra T19.0XXA Foreign body in stomach T18.2XXA Schizophrenia F20.0 Schizophrenia type: paranoid schizophrenia Depression F32.A Depression Type: unspecified Anxiety F41.9 (1) Depression Depression Type: unspecified Qualified Code(s): F32.A - Depression, unspecified (2) Schizophrenia Schizophrenia type: paranoid schizophrenia Qualified Code(s): F20.0 - Paranoid schizophrenia
[2022-03-27] MEDS ORDERED: fentaNYL citrate 100 MCG/2 ML VIAL ONE (11:53)
--- NOTE | 2022-03-27 11:54 | History & Physical Bridge Note ---
Date of Service March 27, 2022 History & Physical Bridge Note I have examined the patient, reviewed the History & Physical and in the interval since the performance of the History & Physical I have noted the following changes of clinical significance: no changes noted
--- NOTE | 2022-03-27 12:10 | Urology Progress Note ---
Date of Service March 27, 2022 Assessment & Plan (1) Foreign body in urethra: Plan 22-year-old male who repeatedly puts foreign bodies in his urethra. 1 was recently removed in the OR several days ago. He is planning to go for an exploratory laparotomy with general surgery as GI could not remove a gastric foreign body and patient reported that he stuck more things up his urethra in the interim. Plan to perform cystoscopy with removal of foreign body prior to general surg alberto starting their case Consent obtained Admission and Anticipated Discharge Date Admission Date: March 24, 2022 Subjective Patient reportedly put more things into his urethra. Going to the OR with GEN surge for ex lap to remove gastric foreign body. Review of Systems Review of Systems: 14 point review of systems negative outside of what is listed above in HPI Physical Exam Physical Exam: General: Alert and oriented, no acute distress HEENT: Normocephalic, mucous membranes moist Pulmonary: Nonlabored respirations Abdomen: Nondistended Extremities: Moves all 4 spontaneously Neuro: No gross deficits Skin: Warm, dry, no rashes noted Results & Data ([facility]) Vital Signs (Past 12 Hours) Vital Signs Temp Pulse Resp BP Pulse Ox Pulse Ox O2 Del Method 03/27/22 11:42 37 C 72 16 123/77 100 Room Air 03/27/22 07:30 Room Air 03/27/22 07:30 98 03/27/22 07:19 36.7 C 57 L 16 124/82 98 Room Air 03/27/22 03:35 36.5 C 62 16 121/78 98 Room Air O2 Del Method 03/27/22 11:42 03/27/22 07:30 03/27/22 07:30 Room Air 03/27/22 07:19 03/27/22 03:35 PG Care Time/CCT Total # of Minutes Spent Total Time Spent with Patient: Total time spent is greater than 50% in coordination of care (as documented) at patient's floor/unit and/or counseling patient: Coding Level of Care Code 01404 Subseq Hosp Care Lvl 2 Diagnoses Foreign body in urethra T19.0XXA
--- NOTE | 2022-03-27 12:14 | Anesthesiology Consultation ---
Date of Service March 27, 2022 Assessment & Plan (1) Encounter for pre-operative examination: Chart Review Chart Review: Acceptable Risk for Surgery and Patient NOT seen in Pre Admission Testing Consults Requested none History Surgery Operation Date: 03/25/22 00:15 Proposed Procedures p Cystoscopy - José Luis Burton DO Operation Date: 03/25/22 10:35 Proposed Procedures p Esophagogastroduodenoscopy - Henri Anderson Jr, MD Operation Date: 03/26/22 09:40 Proposed Procedures p Esophagogastroduodenoscopy Foreign Body Removal - Henri Anderson Jr, MD Operation Date: 03/27/22 14:10 Proposed Procedures p Exploratory Laparotomy, Gastrotomy Removal of Foreign Body - José Luis Paiz MD s Cystoscopy - Anton Randall MD Height/Weight Height: 5 ft 10 in Weight: 90.2 kg Allergies Allergy/AdvReac Type Severity Reaction Status Date / Time No Known Allergies Allergy Verified 03/25/22 00:50 Medications Home Medications Medication Instructions Recorded Confirmed Last Taken haloperidol 10 mg tablet 10 mg PO HS 03/25/22 03/25/22 03/23/22 haloperidol 5 mg tablet 5 mg PO HS 03/25/22 03/25/22 03/23/22 lithium carbonate 300 mg capsule 300 mg PO BID 03/25/22 03/25/22 03/24/22 06:30 mirtazapine 45 mg tablet 45 mg PO HS 03/25/22 03/25/22 03/23/22 paroxetine HCl 10 mg tablet 10 mg PO HS 03/25/22 03/25/22 03/23/22 paroxetine HCl 20 mg tablet 20 mg PO HS 03/25/22 03/25/22 03/23/22 polyethylene glycol 3350 17 gram 17 g PO BID 03/25/22 03/25/22 03/24/22 06:30 oral powder packet (Miralax) Active Medications Generic Name Dose Route Start Last Admin Trade Name Freq PRN Reason Stop Dose Admin Haloperidol 3 mg 03/25/22 02:45 03/26/22 23:09 Haloperidol 1 Mg Tab PO 04/24/22 02:44 3 mg HS WAYNE Administration Haloperidol 5 mg 03/25/22 02:45 03/26/22 23:10 Haloperidol 5 Mg Tab PO 04/24/22 02:44 5 mg HS WAYNE Administration Ceftriaxone Sodium 2,000 mg/ 70 mls @ 100 mls/hr 03/25/22 00:30 03/27/22 02:07 Dextrose IV 04/04/22 00:29 Infused Q24H WAYNE Infusion Protocol Famotidine 20 mg/ Syringe 5 mls @ 2.5 mls/min 03/25/22 09:00 03/27/22 08:07 IV 04/24/22 08:59 2.5 mls/min Q12 WAYNE Administration Acetaminophen 1,000 mg in 100 mls @ 400 mls/hr 03/25/22 02:19 03/26/22 13:26 Ofirmev IV 03/28/22 02:18 Infused Q8H PRN Infusion Pain or Fever Sodium Chloride 1,000 mls @ 80 mls/hr 03/25/22 16:15 03/27/22 09:11 Nss 1000ml IV 04/24/22 16:14 80 mls/hr .[id number] WAYNE Administration Ketorolac Tromethamine 30 mg 03/26/22 15:50 03/26/22 16:42 Ketorolac 30 Mg/Ml Vial IV 03/31/22 15:49 30 mg Q6H PRN Administration Pain Altha Carbonate 300 mg 03/26/22 21:00 03/27/22 08:07 Altha Carbonate 300 Mg Tab PO 04/25/22 20:59 300 mg BID WAYNE Administration Mirtazapine 45 mg 03/25/22 02:45 03/26/22 23:10 Mirtazapine Tab 15 Mg Tab PO 04/24/22 02:44 45 mg HS WAYNE Administration Paroxetine HCl 30 mg 03/25/22 02:45 03/26/22 23:11 Paroxetine Hcl 20 Mg Tab PO 04/24/22 02:44 30 mg HS WAYNE Administration Senna/Docusate Sodium 2 tab 03/25/22 09:00 03/27/22 08:07 Docusate Sodium/Senna 50/8.6mg Tab PO 04/24/22 08:59 2 tab QAM WAYNE Administration NPO Date Last Intake of Fluids: 03/26/22 Time Last Intake of Fluids: 23:59 Date Last Intake of Solids: 03/26/22 Time Last Intake of Solids: 23:59 Past Medical History Medical History Anxiety Depression Foreign body in urethra H/O swallowed foreign body Schizophrenia Suicidal ideation Past Surgical History Surgical History H/O esophagogastroduodenoscopy Social History Smoking Status: Never smoker tobacco type: cigarettes Do You Dip or Chew Tobacco: No Hx Alcohol Use: No Hx Substance Use: No substance use type: does not use Physical Exam Vital Signs Last Vital Signs Temp 37.2 C 03/27/22 12:10 Pulse 73 03/27/22 12:10 Resp 18 03/27/22 12:10 BP 141/75 H 03/27/22 12:10 Pulse Ox 96 03/27/22 12:10 O2 Del Method 03/27/22 12:10 O2 Flow Rate 4 03/25/22 01:20 Testing Laboratory Results 03/27/22 06:12 03/27/22 06:12 PT 11.1 Seconds (9.0-12.0) 03/24/22 20:48 INR 1.0 (0.9-1.1) 03/24/22 20:48 APTT 24.6 Seconds (21.0-31.0) 03/24/22 20:48 Urine Color Yellow 03/25/22 Unknown Urine Appearance Slightly Cloudy (Clear) A 03/25/22 Unknown Urine pH 8.0 (4.5-7.5) H 03/25/22 Unknown Ur Specific Renovo > 1.045 (1.000-1.030) H 03/25/22 Unknown Urine Protein Negative (Negative) 03/25/22 Unknown Urine Glucose (UA) Negative (Negative) 03/25/22 Unknown Urine Ketones Negative (Negative) 03/25/22 Unknown Urine Nitrite Negative (Negative) 03/25/22 Unknown Ur Leukocyte Esterase 2+ (Negative) H 03/25/22 Unknown Urine WBC (Auto) >30 /hpf (0-5) H 03/25/22 Unknown Urine RBC (Auto) 0-4 /hpf (0-4) 03/25/22 Unknown U Hyaline Cast (Auto) 1-5 /lpf (0-5) 03/25/22 Unknown U Epithel Cells (Auto) 5-10 /lpf (0-5) H 03/25/22 Unknown Urine Bacteria (Auto) Negative (Negative) 03/25/22 Unknown 03/25/22 Unknown Urine Culture - Final Urine,Clean Catch Three types or organisms present, all moderate counts probable skin jerilyn. No further identifications or sensitivities to follow.
[2022-03-27] MEDS ORDERED: PHENYLEPHRINE 100MCG/ML 5ML SYR IV PRN (12:19)
[2022-03-27] MEDS ORDERED: ePHEDrine sulfate 50 MG/ML AMP IV PRN (12:19)
[2022-03-27] MEDS ORDERED: ONDANSETRON INJ 2 MG/ML 2 ML VIAL IV PRN (12:19)
[2022-03-27] MEDS ORDERED: LABETALOL HCL IV 5 MG/ML 20ML IV PRN (12:19)
[2022-03-27] MEDS ORDERED: ATROPINE SULFATE 0.1 MG/ML 10ML SYR IV PRN (12:19)
[2022-03-27] MEDS ORDERED: HYDROmorphone INJ 2 MG/ML SYR/VIAL IV PRN (12:19)
--- NOTE | 2022-03-27 13:16 | Post Operative Brief Note ---
PG Immediate Post Op with CF Date of Surgery March 27, 2022 Pre & Post Diagnosis Operation Date: 03/26/22 09:40 Pre-Op Diagnosis: foreign body in stomach and penis Post-Op Diagnosis: foreign body in stomach and penis Operation Date: 03/27/22 14:10 <No data on this case meets the specified criteria> I identified the patient and participated in the time-out.: Yes Procedure Operation Date: 03/25/22 00:15 Actual Procedures p Cystoscopy, Removal of Foreign Body - Anton Randall MD Surgeon Anton Randall MD Filterer None Estimated Blood Loss 1 Findings See Below Small black foreign object in bladder. Removed with grasper. Evaluation of urethra and bladder revealed no further foreign bodies or injury. Hernandez cath eter placed without difficulty. Specimens Specimen Description: no specimens collected Drains Hernandez Catheter Anesthesia Type General Complications none
--- NOTE | 2022-03-27 13:18 | Operative Report ---
PG Post Operative Report Pre & Post Diagnosis Operation Date: 03/26/22 09:40 Pre-Op Diagnosis: foreign body in stomach and penis Post-Op Diagnosis: foreign body in stomach and penis Operation Date: 03/27/22 14:10 <No data on this case meets the specified criteria> I identified the patient and participated in the time-out.: Yes Procedure Operation Date: 03/25/22 00:15 Actual Procedures p Cystoscopy, Removal of Foreign Body - Anton Randall MD Surgeon Anton Randall MD Typesetters Printer None Estimated Blood Loss 1 Findings See Below Specimens Piece of plastic spoon Drains 16 Bulgarian Hernandez catheter with 10 cc in balloon Anesthesia Type General Complications none Disposition Disposition: Recovery Room Indications 22-year-old prisoner who was repeatedly placed foreign bodies in his urethra. He is going to the OR with general surgery for exploratory laparotomy for removal of gastric foreign body and reported that he placed another foreign body in his urethra prior to going to the OR. Consent was obtained. Description of Procedure After informed consent was obtained, the patient was transported to the operative suite. General anesthesia was induced. They were placed in supine position and prepped and draped in sterile fashion. They received preoperative ceftriaxone. An appropriate surgical timeout was performed. I advanced a flexible cystoscope per urethra into the bladder. There were no foreign bodies in the urethra but there was a small black object in the bladder. Using a grasper, this was removed atraumatically. This appeared to be a piece of a broken plastic spoon. I reinserted the cystoscope and there were no injuries to the urethra or remaining foreign bodies in the bladder. Bladder was left full and scope was removed. A 16 Bulgarian Hernandez catheter was inserted with return of clear urine. The balloon was inflated with 10 cc sterile water. I then turned the case over to general surgery. I attest to the content of the Intraoperative Record and any orders documented therein. Any exceptions are noted below.
[2022-03-27] MEDS ORDERED: ONDANSETRON INJ 2 MG/ML 2 ML VIAL ONE (13:43)
[2022-03-27] MEDS ORDERED: PROPOFOL IV EMULSION 10 MG/ML 20 ML VIAL IV ONE (13:43)
[2022-03-27] MEDS ORDERED: GLYCOPYRROLATE 0.2 MG/ML VIAL ONE (13:43)
[2022-03-27] MEDS ORDERED: DEXAMETHASONE SOD INJ 4 MG/ML VIAL ONE (13:43)
[2022-03-27] MEDS ORDERED: NEOSTIGMINE METHYLSULFATE 1 MG/ML 10ML VIAL ONE (13:43)
[2022-03-27] MEDS ORDERED: ROCURONIUM BROMIDE 10 MG/ML 5 ML VIAL IV ONE (13:43)
--- NOTE | 2022-03-27 13:43 | XRay Report ---
XR KUB/Abdomen 1 view CLINICAL HISTORY: eval foreign bodies TECHNIQUE: 1 view of the abdomen was obtained. Comparison: Comparison is made to abdomen radiograph 03/25/2022 FINDINGS: All 4 previously noted radiodensities are again noted. Some appear to have migrated along the digesti ve tract. The osseous structures are grossly unremarkable. The bowel gas pattern is nonobstructive. 4 radiodensities are unchanged from prior exam. IMPRESSION: Again seen are all 4 previously noted radiodense bodies. Some have progressed along the digestive tra ct in the interval. ACT 112: Negative or not required by law. Electronically signed by: Shlomo Rose M.D. 03/27/2022 1:41 PM
[2022-03-27] MEDS ORDERED: KETOROLAC 30 MG/ML VIAL ONE (13:57)
--- NOTE | 2022-03-27 14:20 | Post Operative Brief Note ---
Immediate Post Op Note v1 Date of Surgery March 27, 2022 Pre & Post Diagnosis Operation Date: 03/27/22 14:10 Pre-Op Diagnosis: foreign body in stomach and penis Post-Op Diagnosis: foreign body in stomach and penis I identified the patient and participated in the time-out.: Yes Procedure Operation Date: 03/27/22 14:10 Actual Procedures p Exploratory Laparotomy, Gastrotomy Removal of Foreign Body(Not Applicable) - José Luis Paiz MD s Cystoscopy, removal of foreign body(Not Applicable) - Anton Randall MD Surgeon José Luis Paiz MD Veneer Production Machine Operator ALEX Ochoa assisted with tissue retraction, camera op, closure Estimated Blood Loss 5 Findings Consistent with Post-Op Diagnosis Drains Hernandez Catheter (16 monegasque Hernandez catheter inserted by Dr. Randall during cystoscopy procedure ) Anesthesia Type General
--- NOTE | 2022-03-27 14:26 | Operative Report ---
Post Operative Report Pre & Post Diagnosis Operation Date: 03/27/22 14:10 Pre-Op Diagnosis: foreign body in stomach and penis Post-Op Diagnosis: foreign body in stomach and penis I identified the patient and participated in the time-out.: Yes Procedure Operation Date: 03/27/22 14:10 Actual Procedures p Exploratory Laparotomy, Gastrotomy Removal of Foreign Body(Not Applicable) - José Luis Paiz MD s Cystoscopy, removal of foreign body(Not Applicable) - Anton Randall MD Surgeon José Luis Paiz MD Primary Special Educator ALEX Ochoa assisted with tissue retraction, camera op, closure Estimated Blood Loss 5 Findings Consistent with Post-Op Diagnosis Foreign body removed from stomach through a gastrotomy2 pieces of spoon tied together with 2 plastic washers Specimens Foreign object in stomach Drains None Anesthesia Type General Complications No immediate complications Description of Procedure Patient taken the operating room, placed supine on the operating table. A time was performed, perioperative antibiotics were administered, SCDs were placed. Cystoscopy with urology commenced, the details of which are dictated in a separate operative note. Once complete, the abdomen was prepped and draped in the normal sterile fashion. An upper midline incision was made with a 10 blade scalpel and carried down to the level of the fascia. The fascia was incised, and the incision was opened to its fullest extent. The transverse colon and omentum were retracted exposing the stomach. The stomach was grabbed with a Lny clamp. It was brought down into the wound. I could feel a large foreign object within the stomach. A transverse gastrotomy incision was made with a Bovie electrocautery into the stomach in the lower body of the stomach. Using forceps, the foreign body was removed from the stomach. It was composed of 2 pieces of broken plastic spoon tied together with 2 plastic washers. Further exploration of the stomach yielded another piece of broken spoon as well as a piece of copper material. These were all sent off field for specimen. The gastrotomy was closed in 2 layers, an inner mucosal layer of running 3-0 Vicryl suture, and outer Lembert style seromuscular layer of interrupted 3-0 silk. Attention was then turned to the small bowel. The ligament of Treitz was identified and the small bowel was run from ligament of Treitz down to the cecu m. There did not appear to be any further foreign objects in the small bowel. Palpation of the cecum yielded 2 separate foreign objects that were contained within the cecum. As the severity mated to the colon, we did not remove them. The bowel was replaced into the abdominal cavity, and the abdomen and bowel were inspected again. The fascia was reapproximated with running #1 PDS. Subcutaneous tissue was closed with 3-0 Vicryl. The skin was closed with a running 4-0 Monocryl subcuticular stitch. Benzoin and Steri-Strips were placed. Dressing was placed. He tolerated procedure well complication, transferred in stable condition to the PACU. Of note, an NG tube and a Hernandez catheter were placed during the procedure. All instrument, needle, and sponge counts were correct at the end of the case. My bilingual medical assistant was necessary throughout the procedure for tissue retraction, possible camera operation, and closure of the wounds. I understand that section 1842(b)(7)(D) of the Social Security act generally prohibits Medicare physician fee schedule payment for the services of assistants at surgery in teaching hospitals when qualified residents are available to furnish such services. I certify that the services for which payment is claimed were medically necessary and that no qualified resident was available to perform the services. I further understand that these services are subject to postpayment review by the Medicare carrier. I attest to the content of the Intraoperative Record and any orders documented therein. Any exceptions are noted below.
--- NOTE | 2022-03-27 14:43 | Gastroenterology Progress Note ---
Date of Service March 27, 2022 Assessment & Plan (1) Foreign body in stomach: Plan: Going off service. Will sign off. If GI needed please call GI marketing manager health communications starting tomorrow. I will be available tonight Admission and Anticipated Discharge Date Admission Date: March 24, 2022 Subjective Events noted. Surgery completed Results & Data ([facility]) Vital Signs (Past 12 Hours) Vital Signs Temp Pulse Pulse Resp BP Pulse Ox Pulse Ox 03/27/22 14:31 36.4 C L 77 18 146/101 H 100 03/27/22 12:10 37.2 C 73 18 141/75 H 96 03/27/22 11:42 37 C 72 16 123/77 100 03/27/22 07:30 03/27/22 07:30 98 03/27/22 07:19 36.7 C 57 L 16 124/82 98 03/27/22 03:35 36.5 C 62 16 121/78 98 O2 Del Method O2 Del Method O2 Flow Rate 03/27/22 14:31 Oxymask 5 03/27/22 12:10 Room Air 03/27/22 11:42 Room Air 03/27/22 07:30 Room Air 03/27/22 07:30 Room Air 03/27/22 07:19 Room Air 03/27/22 03:35 Room Air
[2022-03-27] MEDS: fentaNYL citrate 100 MCG/2 ML VIAL IV PRN ×4 (14:51→15:06)
--- NOTE | 2022-03-27 15:16 | XRay Report ---
KUB HISTORY: NGT placement confirmation COMPARISON: None. FINDINGS: Nasogastric tube terminates in the gastric cardia with the fenestrated line at the distal e sophagus. This should be advanced by approximately 5 to 10 cm. Radiopaque foreign bodies again noted within the left upper quadrant likely within the stomach. There is a small amount of pneumoperitoneum . This is likely due to the recent postoperative change. IMPRESSION: 1. Nasogastric tube terminates in the gastric cardia with the fenestrated line at the distal esophagu s. This should be advanced by approximately 5 to 10 cm. 2. Small amount of pneumoperitoneum. This is likely due to the recent postoperative change. 3. No change in the radiopaque foreign bodies within the left upper quadrant/stomach. ACT 112: Negative or not required by law. Electronically signed by: Richard Aburto M.D. 03/27/2022 3:15 PM
[2022-03-27] MEDS ORDERED: ACETAMINOPHEN 10MG/ML Custom 1,000 MG in EMPTY BAG 0 ML IV SCH (15:32)
[2022-03-27] MEDS ORDERED: PANTOprazole 40 MG TAB PO SCH (15:32)
--- NOTE | 2022-03-27 15:44 | Anesthesiology Progress Note ---
Date of Service March 27, 2022 Anesthesia Post Procedure Vital Signs Vital Signs: Temp Pulse Pulse Resp BP BP Pulse Ox 03/27/22 15:30 36.4 C L 81 16 158/89 H 99 03/27/22 15:20 36.5 C 78 16 145/78 H 99 03/27/22 15:10 78 16 146/88 H 100 03/27/22 15:00 78 16 148/93 H 100 03/27/22 14:50 74 18 151/94 H 100 03/27/22 14:40 77 18 147/86 H 100 03/27/22 14:31 36.4 C L 77 18 146/101 H 100 03/27/22 12:10 37.2 C 73 18 141/75 H 96 03/27/22 11:42 37 C 72 16 123/77 100 03/27/22 07:30 03/27/22 07:30 03/27/22 07:19 36.7 C 57 L 16 124/82 98 03/26/22 23:10 03/26/22 23:10 03/27/22 03:35 36.5 C 62 16 121/78 98 03/26/22 23:04 36.5 C 62 16 120/70 99 03/26/22 18:46 36.9 C 65 16 129/71 98 03/26/22 17:20 37.0 C 76 16 131/70 99 03/26/22 16:20 36.7 C 80 15 132/76 100 03/26/22 15:50 36.7 C 77 16 126/73 100 Pulse Ox O2 Del Method O2 Del Method O2 Flow Rate 03/27/22 15:30 Room Air 03/27/22 15:20 Room Air 03/27/22 15:10 Room Air 03/27/22 15:00 Room Air 03/27/22 14:50 Oxymask 5 03/27/22 14:40 Oxymask 5 03/27/22 14:31 Oxymask 5 03/27/22 12:10 Room Air 03/27/22 11:42 Room Air 03/27/22 07:30 Room Air 03/27/22 07:30 98 Room Air 03/27/22 07:19 Room Air 03/26/22 23:10 Room Air 03/26/22 23:10 98 Room Air 03/27/22 03:35 Room Air 03/26/22 23:04 Room Air 03/26/22 18:46 Room Air 03/26/22 17:20 Room Air 03/26/22 16:20 Room Air 03/26/22 15:50 Room Air Pain Intensity Abdomen: Pain Intensity: 10 Transfer of Care Handoff Completed per policy Notes Mental Status: alert / awake / arousable and participated in evaluation Patient Amnestic to Procedure: Yes Nausea / Vomiting: adequately controlled Pain: adequately controlled Airway Patency, RR, SpO2: stable & adequate BP & HR: stable & adequate Hydration State: stable & adequate Anesthetic Complications: no major complications apparent and Pt Satisfied with anesthetic care
[2022-03-27] MEDS ORDERED: ACETAMINOPHEN 1,000 MG/100 ML VIAL IV SCH (16:00)
[2022-03-27] MEDS: MoRPHine SULFATE 2 MG/ML CARP IV PRN ×2 (16:25→19:58)
[2022-03-27] MEDS ORDERED: HALOPERIDOL LACTATE 5 MG/ML 1 ML VIAL IM PRN (16:28)
[2022-03-27] MEDS: HALOPERIDOL LACTATE 5 MG/ML 1 ML VIAL IM SCH (20:04)
[2022-03-27] MEDS: PARoxetine HCL 20 MG TAB PO SCH (21:38)
[2022-03-27] MEDS: MIRTAZAPINE SOLTAB 15 MG PO SCH (21:39)
--- NOTE | 2022-03-27 23:58 | Communication Note ---
Date of Service: March 27, 2022 Informed by patient's RN that patient had self-removed his NGT at approx. 2300 this evening. He noted that he was having breathing difficulties with it. VSS. Reviewed notes with his RN, including surgical, GI, and primary services. Had gastrotomy today. Patient reported to have minimal output from NGT since start of shift, though did have a canister half-full prior to change of shift. RN spoke with general surgery, who recommended holding replacement unless interval development of nausea with vomiting. Also informed by RN that the safety pin from NGT was missing; patient denied interaction with it as did guards. Resident Activity Tracking Resident Involvement: Resident Care Provided Care Provided: Adult [facility] Medicine
[2022-03-28] MEDS: cefTRIAXone SODIUM 2,000 MG in DEXTROSE 5% 50 ML IV SCH (00:18)
[2022-03-28] MEDS: MoRPHine SULFATE 2 MG/ML CARP IV PRN ×3 (00:19→12:59)
[2022-03-28] MEDS: KETOROLAC 30 MG/ML VIAL IV PRN (03:36)
[2022-03-28] MEDS: SODIUM CHLORIDE 0.9% 1000ML 1,000 ML IV SCH ×2 (06:04→19:57)
[2022-03-28 06:14] LABS: Basophils # (auto) 0.02 K/uL (0-0.2); Basophils % (auto) 0.2 %; Hemoglobin 11.3 g/dl (14.0-18.0); Immature Granulocytes # (auto) 0.03 K/uL (0.00-0.02); Immature Granulocytes % (auto) 0.3 %; Lymphocytes % (auto) 13.8 %; Mean Corpuscular Hemoglobin 24.2 pg (25.0-34.0); Mean Corpuscular Hgb Conc 31.4 g/dL (32.0-36.0); Mean Corpuscular Volume 77.1 fL (80.0-100.0); Mean Platelet Volume 10.6 fL (9.4-12.4); Monocytes % (auto) 9.2 %; Neutrophils # (auto) 8.34 K/uL (1.4-6.5); Neutrophils % (auto) 76.5 %; Platelet Count 213 K/uL (130-400); RDW Coefficient of Variation 13.8 % (11.5-14.5); RDW Standard Deviation 38.5 fL (36.4-46.3); Red Blood Count 4.67 M/uL (4.63-6.08); White Blood Count 10.89 K/ul (4.8-10.8)
[2022-03-28 06:47] LABS: BUN Creatinine Ratio 9.9 (10-20); Calcium 8.8 mg/dl (8.5-10.1); Creatinine Clr Calc Pharmacy 117.9 ml/min; Est GFR (African American) 108.7 ml/min; Est GFR (Non-African American) 93.8 ml/min; Potassium 3.4 mmol/L (3.5-5.1)
--- NOTE | 2022-03-28 07:09 | Anesthesiology Consultation ---
Date of Service March 28, 2022 Assessment & Plan (1) Encounter for pre-operative examination: Chart Review Chart Review: Acceptable Risk for Surgery and Patient NOT seen in Pre Admission Testing Consults Requested none Additional Notes Patient with mutliple anesthetics in the past week stemming from self inflicted harm involving removal of foreign bodies from stomach and urethra, s/p gastrotomy 03/27/22. History Surgery Operation Date: 03/25/22 00:15 Proposed Procedures p Cystoscopy - José Luis Burton DO Operation Date: 03/25/22 10:35 Proposed Procedures p Esophagogastroduodenoscopy - Henri Anderson Jr, MD Operation Date: 03/26/22 09:40 Proposed Procedures p Esophagogastroduodenoscopy Foreign Body Removal - Henri Anderson Jr, MD Operation Date: 03/27/22 14:10 Proposed Procedures p Exploratory Laparotomy, Gastrotomy Removal of Foreign Body - José Luis Paiz MD s Cystoscopy - Anton Randall MD Operation Date: 03/28/22 10:05 Proposed Procedures p Esophagogastroduodenoscopy - Aki Duval MD s Possible Laparotomy Gastrostomy Removal - José Luis Paiz MD Height/Weight Height: 5 ft 10 in Weight: 90.2 kg Allergies Allergy/AdvReac Type Severity Reaction Status Date / Time No Known Allergies Allergy Verified 03/25/22 00:50 Medications Home Medications Medication Instructions Recorded Confirmed Last Taken haloperidol 10 mg tablet 10 mg PO HS 03/25/22 03/25/22 03/23/22 haloperidol 5 mg tablet 5 mg PO HS 03/25/22 03/25/22 03/23/22 lithium carbonate 300 mg capsule 300 mg PO BID 03/25/22 03/25/22 03/24/22 06:30 mirtazapine 45 mg tablet 45 mg PO HS 03/25/22 03/25/22 03/23/22 paroxetine HCl 10 mg tablet 10 mg PO HS 03/25/22 03/25/22 03/23/22 paroxetine HCl 20 mg tablet 20 mg PO HS 03/25/22 03/25/22 03/23/22 polyethylene glycol 3350 17 gram 17 g PO BID 03/25/22 03/25/22 03/24/22 06:30 oral powder packet (Miralax) Active Medications Generic Name Dose Route Start Last Admin Trade Name Freq PRN Reason Stop Dose Admin Haloperidol 3 mg 03/25/22 02:45 03/26/22 23:09 Haloperidol 1 Mg Tab PO 04/24/22 02:44 3 mg HS WAYNE Administration Haloperidol 5 mg 03/25/22 02:45 03/26/22 23:10 Haloperidol 5 Mg Tab PO 04/24/22 02:44 5 mg HS WAYNE Administration Haloperidol Lactate 8 mg 03/27/22 21:00 03/27/22 20:04 Haloperidol Lactate 5 Mg/Ml 1 Ml Vial IM 04/26/22 20:59 8 mg HS WAYNE Administration Ceftriaxone Sodium 2,000 mg/ 70 mls @ 100 mls/hr 03/25/22 00:30 03/28/22 01:02 Dextrose IV 04/04/22 00:29 Infused Q24H WAYNE Infusion Protocol Famotidine 20 mg/ Syringe 5 mls @ 2.5 mls/min 03/25/22 09:00 03/27/22 19:59 IV 04/24/22 08:59 2.5 mls/min Q12 WAYNE Administration Sodium Chloride 1,000 mls @ 80 mls/hr 03/25/22 16:15 03/28/22 06:04 Nss 1000ml IV 04/24/22 16:14 80 mls/hr .[id number] WAYNE Administration Ketorolac Tromethamine 30 mg 03/26/22 15:50 03/28/22 03:36 Ketorolac 30 Mg/Ml Vial IV 03/31/22 15:49 30 mg Q6H PRN Administration Pain Pontoosuc Carbonate 300 mg 03/26/22 21:00 03/27/22 21:38 Pontoosuc Carbonate 300 Mg Tab PO 04/25/22 20:59 300 mg BID WAYNE Administration Mirtazapine 45 mg 03/27/22 21:00 03/27/22 21:39 Mirtazapine Soltab 15 Mg PO 04/26/22 20:59 45 mg HS WAYNE Administration Protocol Morphine Sulfate 2 mg 03/27/22 15:32 03/28/22 00:19 Morphine Sulfate 2 Mg/Ml Carp IV 04/10/22 15:31 2 mg Q3H PRN Administration Pain (1,2,3,4,5) & Pre PT Paroxetine HCl 30 mg 03/25/22 02:45 03/27/22 21:38 Paroxetine Hcl 20 Mg Tab PO 04/24/22 02:44 30 mg HS WAYNE Administration Senna/Docusate Sodium 2 tab 03/25/22 09:00 03/27/22 08:07 Docusate Sodium/Senna 50/8.6mg Tab PO 04/24/22 08:59 2 tab QAM WAYNE Administration NPO Date Last Intake of Fluids: 03/26/22 Time Last Intake of Fluids: 23:59 Date Last Intake of Solids: 03/26/22 Time Last Intake of Solids: 23:59 Past Medical History Medical History Anxiety Depression Foreign body in urethra H/O swallowed foreign body Schizophrenia Suicidal ideation Past Surgical History Surgical History H/O esophagogastroduodenoscopy Social History Smoking Status: Never smoker tobacco type: cigarettes Do You Dip or Chew Tobacco: No Hx Alcohol Use: No Hx Substance Use: No substance use type: does not use Physical Exam Vital Signs Last Vital Signs Temp 99.7 F H 03/28/22 04:01 Pulse 80 03/28/22 03:20 Resp 16 03/28/22 03:20 BP 138/76 03/28/22 03:20 Pulse Ox 98 03/28/22 03:20 O2 Del Method 03/28/22 03:20 O2 Flow Rate 5 03/27/22 14:50 Testing Laboratory Results 03/28/22 05:51 03/28/22 05:51 PT 11.1 Seconds (9.0-12.0) 03/24/22 20:48 INR 1.0 (0.9-1.1) 03/24/22 20:48 APTT 24.6 Seconds (21.0-31.0) 03/24/22 20:48 Urine Color Yellow 03/25/22 Unknown Urine Appearance Slightly Cloudy (Clear) A 03/25/22 Unknown Urine pH 8.0 (4.5-7.5) H 03/25/22 Unknown Ur Specific [place] > 1.045 (1.000-1.030) H 03/25/22 Unknown Urine Protein Negative (Negative) 03/25/22 Unknown Urine Glucose (UA) Negative (Negative) 03/25/22 Unknown Urine Ketones Negative (Negative) 03/25/22 Unknown Urine Nitrite Negative (Negative) 03/25/22 Unknown Ur Leukocyte Esterase 2+ (Negative) H 03/25/22 Unknown Urine WBC (Auto) >30 /hpf (0-5) H 03/25/22 Unknown Urine RBC (Auto) 0-4 /hpf (0-4) 03/25/22 Unknown U Hyaline Cast (Auto) 1-5 /lpf (0-5) 03/25/22 Unknown U Epithel Cells (Auto) 5-10 /lpf (0-5) H 03/25/22 Unknown Urine Bacteria (Auto) Negative (Negative) 03/25/22 Unknown 03/25/22 Unknown Urine Culture - Final Urine,Clean Catch Three types or organisms present, all moderate counts probable skin jerilyn. No further identifications or sensitivities to follow.
--- NOTE | 2022-03-28 07:59 | Hospitalist Progress Note ---
Date of Service March 28, 2022 Assessment & Plan (1) Self-harming behavior: Plan: - Recurrent issues with self-harm behavior as noted below Observational time, guards in room with patient No foreign material, detachable material, small pieces/parts should be in arms raised with patient at any time. This includes drawstrings to close/waistbands, EKG stickers, and any loose material. Patient has a recurrent history of quickly ingesting or placing foreign materials into orifices. (2) Foreign body in urethra: Plan: Foreign body in urethra- Debris removed by Dr. Burton urology in the OR during admission Continue ceftriaxone 1 g IV daily Second foreign body placed, urology consulted. Small piece of broken plastic spoon removed on cystoscopy 03/27 Appreciate assistance in management (3) Foreign body in stomach: Plan: Underwent EGD 03/26. Normal esophagus. 3 cm piece of plastic tied to a piece of headphones, half a washer and stomach. This was unable to be extracted through upper esophageal sphincter due to wedging in the esophagus. Surgery subsequently consulted. Noted to have passed foreign bodies similar on prior admissions and remains hemodynamically stable abdomen some tenderness. No emergent surgical intervention, but KUB failed to show progression and patient was taken for operative removal - S/p gastrotomy and foreign body removal (2 pieces been tied together with plastic washers) 03/27/2022 Patient self removed NGT overnight of 03/27 into 03/28, replacement deferred on consultation between surgery and overnight provider With retained foreign body after 03/27 procedure, patient returned for EGD/surgical intervention at 03/28. 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 Strict n.p.o. following gastrotomy until okay to advance per surgery Postop KUB pending (4) Schizophrenia: Plan: Schizophrenia/depression/anxiety Converted to Haldol to IM formulation, hold other p.o. medications at this time. If acute pharmacologic behavioral control required for risk of harm to self/others, additional dose of Haldol IM may be used as needed. (5) Depression: Plan: See above (6) Anxiety: Plan: See above Admission and Anticipated Discharge Date Admission Date: March 24, 2022 Subjective Seen at bedside. Reports less pain than yesterday, still some mild diffuse pain. Denies fever, chills, sweats, lightheadedness, dizziness, chest pain, chest pressure. Denies other acute change. Denies other ingested foreign bodies overnight. Per nursing report NG tube did not have a safety pin on it, patient was not observed to have eaten this of present. Guards did not see patient eating any foreign bodies. Review of Systems Review of Systems: All systems reviewed & are unremarkable except as noted in Subjective Physical Exam Physical Exam: General: A&Ox3. NAD. Cooperative. HEENT: Atraumatic, normocephalic. Vision and hearing grossly intact Pulm: CTAB A&P. -wheezes, -rales, -rhonchi. Symmetrical chest rise. No increase in work of breathing. No respiratory distress. Cardiac: RRR, -mrg. Radial pulses intact and symmetrical. Abdominal: Midline postsurgical abdominal incision intact, C/D/I well-healing without erythema or dehiscence. Mild tenderness without rebound/guarding Results & Data Results & [facility] ([facility]) Vital Signs (Past 12 Hours) Vital Signs Temp Pulse Resp BP Pulse Ox Pulse Ox O2 Del Method 03/28/22 04:01 37.6 C H 03/28/22 03:20 38.0 C H 80 16 138/76 98 Room Air 03/27/22 21:30 Room Air 03/27/22 21:30 96 03/28/22 00:17 37.5 C 90 18 146/88 H 96 Room Air O2 Del Method 03/28/22 04:01 03/28/22 03:20 03/27/22 21:30 03/27/22 21:30 Room Air 03/28/22 00:17 PG Care Time/CCT Total # of Minutes Spent Total Time Spent with Patient: Total time spent is greater than 50% in coordination of care (as documented) at patient's floor/unit and/or counseling patient: Coding Level of Care Code 68049 Subseq Hosp Care Lvl 2 Diagnoses Self-harming behavior Foreign body in urethra T19.0XXA Foreign body in stomach T18.2XXA Schizophrenia F20.0 Schizophrenia type: paranoid schizophrenia Depression F32.A Depression Type: unspecified Anxiety F41.9 (1) Depression Depression Type: unspecified Qualified Code(s): F32.A - Depression, unspecified (2) Schizophrenia Schizophrenia type: paranoid schizophrenia Qualified Code(s): F20.0 - Paranoid schizophrenia
--- NOTE | 2022-03-28 08:49 | Gastroenterology Progress Note ---
Date of Service March 28, 2022 Assessment & Plan (1) Foreign body in stomach: Plan: Pt is a 22 yo male inmate w foreign body ingestion, taken to OR yesterday to remove the foreign bodies in stomach however post op KUB showed there are still remaining radiopaque objects in LUQ/stomach. - NPO - OR for EGD by Dr. Duval, possible lap gastrostomy by Dr. Paiz Admission and Anticipated Discharge Date Admission Date: March 24, 2022 Supervising Physician Co-Signing Physician Notes I performed a history and physical examination of the patient today, including specifically on physical exam - soft abdomen. I have discussed the patient's management with the advanced practitioner. Please refer to the nurse practitioner's note for the documented findings and plan of care. EGD to explore for retained foreign bodies in the stomach. Subjective Pt taken to OR for foreign body removal yesterday. Post op KUB showed no change in radiopaque object in LUQ areas. He is NPO. Reports having tenderness over surgical area. No n/v. Review of Systems Review of Systems: All systems reviewed & are unremarkable except as noted in HPI & below Physical Exam Constitutional: WD/WN, vitals as above well groomed, cooperative and comfortable Eyes: PERRL, conjunctivae normal, anicteric sclerae ENMT: external ear and nose normal, oropharynx normal Respiratory: No respiratory distress noted Gastrointestinal (Abdomen): Soft, upper abd w midline incision covered w dermabond Skin: no rashes, warm and dry no jaundice Psychiatric: A+Ox3, euthymic affect Lymphatic: no lymphedema Results & Data ([facility]) Vital Signs (Past 12 Hours) Vital Signs Temp Pulse Resp BP Pulse Ox Pulse Ox O2 Del Method 03/28/22 04:01 37.6 C H 03/28/22 03:20 38.0 C H 80 16 138/76 98 Room Air 03/27/22 21:30 Room Air 03/27/22 21:30 96 03/28/22 00:17 37.5 C 90 18 146/88 H 96 Room Air O2 Del Method 03/28/22 04:01 03/28/22 03:20 03/27/22 21:30 03/27/22 21:30 Room Air 03/28/22 00:17
[2022-03-28] MEDS: DOCUSATE SODIUM/SENNA 50/8.6MG TAB PO SCH (09:07)
[2022-03-28] MEDS: LITHIUM CARBONATE 300 MG TAB PO SCH ×2 (09:07→20:01)
[2022-03-28] MEDS: POTASSIUM CHLORIDE / WTR 10 MEQ/100 ML PLCT IV SCH ×3 (09:16→14:08)
[2022-03-28] MEDS: FAMOTIDINE 20 MG in SYRINGE 3 ML IV SCH ×2 (09:16→21:35)
--- NOTE | 2022-03-28 09:20 | Surgery Progress Note ---
Date of Service March 28, 2022 Assessment & Plan (1) Foreign body in stomach: Plan Postop day 1 status post exploratory laparotomy, gastrotomy, removal of foreign objects from stomach. Unfortunately, postoperative x-ray demonstrates that there is still 1 object remaining in his stomach. This was not seen on endoscopy and was not noted during surgery. I have discussed this with GI. We will plan for EGD with possible extraction in the OR today. If the extraction via EGD is not successful, we will have to reexplore him and remove this surgically. This will be done all at the same time. I discussed this with the patient, and all his questions were answered. He is agreeable to proceed as planned. Admission and Anticipated Discharge Date Admission Date: March 24, 2022 Subjective Feeling okay this morning. No NG tube in place. No nausea or vomiting. Minimal abdominal pain. Results & Data ([facility]) Vital Signs (Past 12 Hours) Vital Signs Temp Pulse Resp BP Pulse Ox Pulse Ox O2 Del Method 03/28/22 09:16 37.4 C 82 16 133/76 98 Room Air 03/28/22 04:01 37.6 C H 03/28/22 03:20 38.0 C H 80 16 138/76 98 Room Air 03/27/22 21:30 Room Air 03/27/22 21:30 96 03/28/22 00:17 37.5 C 90 18 146/88 H 96 Room Air O2 Del Method 03/28/22 09:16 03/28/22 04:01 03/28/22 03:20 03/27/22 21:30 03/27/22 21:30 Room Air 03/28/22 00:17
--- NOTE | 2022-03-28 10:07 | History & Physical Bridge Note ---
Date of Service March 28, 2022 History & Physical Bridge Note I have examined the patient, reviewed the History & Physical and in the interval since the performance of the History & Physical I have noted the following changes of clinical significance: no changes noted EGD Patient was explained in detail regarding risks, benefits, limitations and alternatives of the above endoscopic procedure. Risks of intravenous sedation used for procedure were also explained. Risks include, but not limited to perforation, bleeding, infection, respiratory distress, cardiac arrest and . Patient is also aware about the possibility of missed lesion. Patient's questions were answered. The patient verbalized understanding the information and agreed to undergo the procedure.
[2022-03-28] MEDS ORDERED: PROPOFOL IV EMULSION 10 MG/ML 20 ML VIAL IV ONE (10:24)
[2022-03-28] MEDS ORDERED: fentaNYL citrate 100 MCG/2 ML VIAL ONE ×2 (10:24→11:44)
[2022-03-28] MEDS ORDERED: DEXAMETHASONE SOD INJ 4 MG/ML VIAL ONE (10:24)
[2022-03-28] MEDS ORDERED: ONDANSETRON INJ 2 MG/ML 2 ML VIAL ONE (10:24)
[2022-03-28] MEDS ORDERED: ROCURONIUM BROMIDE 10 MG/ML 5 ML VIAL IV ONE (10:24)
[2022-03-28] MEDS ORDERED: LIDOCAINE 2% MPF LOCAL 5 ML VIAL INFIL ONE (10:24)
[2022-03-28] MEDS ORDERED: MIDAZOLAM HCL 1 MG/ML 2ML VIAL ONE (10:24)
[2022-03-28] MEDS ORDERED: PANTOprazole 40 MG in SYRINGE 0 ML IV SCH (11:00)
--- NOTE | 2022-03-28 11:55 | Operative Report ---
Post Operative Report Pre & Post Diagnosis Operation Date: 03/25/22 00:15 Pre-Op Diagnosis: Foreign Body Post-Op Diagnosis: Foreign Body Operation Date: 03/25/22 10:35 <No data on this case meets the specified criteria> Operation Date: 03/26/22 09:40 Pre-Op Diagnosis: foreign body in stomach and penis Post-Op Diagnosis: foreign body in stomach and penis Operation Date: 03/27/22 14:10 Pre-Op Diagnosis: foreign body in stomach and penis Post-Op Diagnosis: foreign body in stomach and penis Operation Date: 03/28/22 10:05 Pre-Op Diagnosis: FB IN STOMACH AND PENIS I identified the patient and participated in the time-out.: Yes Procedure Operation Date: 03/25/22 00:15 Actual Procedures p Cystoscopy, Removal of Foreign Body - José Luis Burton DO Operation Date: 03/25/22 10:35 <No data on this case meets the specified criteria> Operation Date: 03/26/22 09:40 Actual Procedures p Esophagogastroduodenoscopy - Henri Anderson Jr, MD Operation Date: 03/27/22 14:10 Actual Procedures p Exploratory Laparotomy, Gastrotomy Removal of Foreign Body(Not Applicable) - José Luis Paiz MD s Cystoscopy, removal of foreign body(Not Applicable) - Anton Randall MD Operation Date: 03/28/22 10:05 <No data on this case meets the specified criteria> Surgeon Aki Duval MD Pals Nurse ALEX Ochoa assisted with tissue retraction, camera op, closure Estimated Blood Loss 5 Findings See Below (Three metalic foreign body objects removed from the stomach) Specimens None Description of Procedure EGD I attest to the content of the Intraoperative Record and any orders documented therein. Any exceptions are noted below.
--- NOTE | 2022-03-28 12:07 | GI REPORT ---
Patient Name: Stefan Simon Procedure Date: 03/28/2022 10:25 AM Date of : 2000 Admit Type: Inpatient Age: 22 Gender: Male Attending MD: Aki Duval MD Procedure: Upper GI endoscopy Providers: Aki Duval MD Referring MD: José Luis Paiz Indications: Foreign body in the stomach Medicines: General Anesthesia Complications: No immediate complications. Estimated Blood Loss: Estimated blood loss: none. Procedure: Pre-Anesthesia Assessment: - Prior to the procedure, a History and Physical was performed, and patient medications, allergies and sensitivities were reviewed. The patient's tolerance of previous anesthesia was reviewed. - The risks and benefits of the procedure and the sedation options and risks were discussed with the patient. All questions were answered and informed consent was obtained. - Patient identification and proposed procedure were verified prior to the procedure by the physician and the nurse. The procedure was verified in the procedure room. - Pre-procedure physical examination revealed no contraindications to sedation. After obtaining informed consent, the endoscope was passed under direct vision. Throughout the procedure, the patient's blood pressure, pulse, and oxygen saturations were monitored continuously. The Endoscope was introduced through the mouth, and advanced to the second part of duodenum. The upper GI endoscopy was accomplished without difficulty. The patient tolerated the procedure well. Findings: The examined esophagus was normal. 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 Metallic objects were found in the gastric fundus. Removal was accomplished with a rat-toothed forceps and snare. A scar was found on the anterior wall of the stomach. The scar tissue was healthy in appearance. The duodenal bulb and second portion of the duodenum were normal. Impression: - Normal esophagus. 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 Removal was successful. - Surgical gastrotomy line in the anterior wall of the stomach remained intact and tight. - Normal duodenal bulb and second portion of the duodenum. Recommendation: - [facility]. - Recall GI if needed. Aki Duval MD 03/28/2022 12:06:50 PM This report has been signed electronically. Note Initiated On: 03/28/2022 10:25 AM Number of Addenda: 0 I attest to the content of the Intraoperative Record and orders documented therein, exceptions below {[id number]}
[2022-03-28] MEDS ORDERED: MoRPHine SULFATE 4 MG/ML 1 ML CARP\\VIAL IV PRN (13:38)
--- NOTE | 2022-03-28 14:59 | Anesthesiology Progress Note ---
Date of Service March 28, 2022 Anesthesia Post Procedure Vital Signs Vital Signs: Temp Pulse Pulse Resp BP Pulse Ox Pulse Ox 03/28/22 13:08 36.9 C 81 15 121/72 100 03/28/22 12:25 81 14 131/70 97 03/28/22 12:15 96 H 16 131/84 100 03/28/22 12:08 36.5 C 85 12 103/64 100 03/28/22 09:52 37.2 C 84 16 136/82 99 03/28/22 09:16 37.4 C 82 16 133/76 98 03/28/22 04:01 37.6 C H 03/28/22 03:20 38.0 C H 80 16 138/76 98 03/27/22 21:30 03/27/22 21:30 96 03/28/22 00:17 37.5 C 90 18 146/88 H 96 03/27/22 18:30 36.7 C 81 16 149/84 H 97 03/27/22 17:30 37.0 C 91 H 16 144/84 H 96 03/27/22 15:32 98 03/27/22 16:30 36.9 C 96 H 16 154/84 H 98 03/27/22 16:00 36.6 C 97 H 16 148/84 H 100 03/27/22 15:30 36.4 C L 81 16 158/89 H 99 03/27/22 15:20 36.5 C 78 16 145/78 H 99 03/27/22 15:10 78 16 146/88 H 100 03/27/22 15:00 78 16 148/93 H 100 O2 Del Method O2 Del Method O2 Flow Rate 03/28/22 13:08 Room Air 03/28/22 12:25 Room Air 03/28/22 12:15 Oxymask 3 03/28/22 12:08 Oxymask 5 03/28/22 09:52 Room Air 03/28/22 09:16 Room Air 03/28/22 04:01 03/28/22 03:20 Room Air 03/27/22 21:30 Room Air 03/27/22 21:30 Room Air 03/28/22 00:17 Room Air 03/27/22 18:30 Room Air 03/27/22 17:30 Room Air 03/27/22 15:32 Room Air 03/27/22 16:30 Room Air 03/27/22 16:00 Room Air 03/27/22 15:30 Room Air 03/27/22 15:20 Room Air 03/27/22 15:10 Room Air 03/27/22 15:00 Room Air Pain Intensity Abdomen: Pain Intensity: 8 Transfer of Care Handoff Completed per policy Notes Mental Status: alert / awake / arousable Patient Amnestic to Procedure: Yes Nausea / Vomiting: adequately controlled Pain: adequately controlled Airway Patency, RR, SpO2: stable & adequate BP & HR: stable & adequate Hydration State: stable & adequate Anesthetic Complications: no major complications apparent
--- NOTE | 2022-03-28 15:25 | XRay Report ---
KUB CLINICAL HISTORY: Follow-up foreign body ingestions. FINDINGS: 2 AP supine abdominal radiographs are compared to study dated 03/27/2022 and correlated with abdominal CT dated 03/24/2022. There is a right lower quadrant nonobstructed abdominal bowel gas amarilys gabbi. There are at least 2 remaining indeterminant foreign bodies projecting over the right lower quad rant. No evidence of intraperitoneal free air is seen. There are no abnormal abdominal calcifications . Suture material is seen below the left hemidiaphragm. The bony structures appear intact. IMPRESSION: There are at least 2 remaining radiodense foreign bodies projecting over the right lower quadrant as detailed above. Electronically signed by: Henrique Slaughter M.D. 03/28/2022 3:24 PM
[2022-03-28] MEDS: MoRPHine SULFATE 4 MG/ML 1 ML CARP\\VIAL IV PRN ×2 (16:18→19:57)
[2022-03-28] MEDS: HALOPERIDOL LACTATE 5 MG/ML 1 ML VIAL IM SCH (20:00)
[2022-03-28] MEDS: PARoxetine HCL 20 MG TAB PO SCH (20:01)
[2022-03-28] MEDS: MIRTAZAPINE SOLTAB 15 MG PO SCH (20:01)
[2022-03-29] MEDS: cefTRIAXone SODIUM 2,000 MG in DEXTROSE 5% 50 ML IV SCH (00:43)
[2022-03-29] MEDS: MoRPHine SULFATE 4 MG/ML 1 ML CARP\\VIAL IV PRN ×4 (04:09→20:06)
--- NOTE | 2022-03-29 05:40 | Surgery Progress Note ---
Date of Service March 29, 2022 Assessment & Plan (1) Foreign body in stomach: Plan: Status post EGD on 03/26/2022 with unsuccessful attempt to remove foreign body Status post exploratory laparotomy with gastrotomy and removal of foreign body on 03/27/2022 (postop day #2); patient underwent cystoscopy with retrieval of foreign body on this day as well Status post EGD with removal of foreign body on 03/28/2022 Continue analgesics Continue antiemetics Continue n.p.o. status Continue IV fluids for hydration Mobilize as able Encourage use of incentive spirometer Check a.m. labs when available Patient will remain n.p.o. through the weekend; a swallow study is ordered for March 31 to ensure there is no gastric leak prior to advancing diet Admission and Anticipated Discharge Date Admission Date: March 24, 2022 Supervising Physician Co-Signing Physician Notes Patient seen and examined, agree with above. 22-year-old incarcerated male with history of ingestion of foreign bodies along with insertion of foreign bodies up his urethra. He is status post cystoscopy, as well as laparotomy with removal of foreign body through gastrotomy and closure. He then underwent EGD with removal of an additional foreign body that was not identified on initial surgery. He pulled his NG tube out overnight. On exam he is afebrile stable vitals. Abdomen is soft, nontender, incision clean dry and intact. He may have psych meds with sips, otherwise strict NPO through the weekend. Likely swallow study on Thursday. Subjective Patient is resting comfortably in bed. He denies significant abdominal pain. He has not had a bowel movement since any of his procedures but notes he is passing flatus. He denies any nausea or vomiting. Physical Exam Gastrointestinal (Abdomen): Bowel sounds are hypoactive. Abdomen is minimally distended. Surgical incision is clean, dry, intact. Appropriate tenderness noted over surgical incision. Results & Data ([facility]) Vital Signs (Past 12 Hours) Vital Signs Temp Pulse Resp BP Pulse Ox Pulse Ox O2 Del Method 03/28/22 19:55 Room Air 03/28/22 19:55 97 03/28/22 21:32 36.8 C 83 16 122/61 97 Room Air O2 Del Method 03/28/22 19:55 03/28/22 19:55 Room Air 03/28/22 21:32 PG Care Time/CCT Total # of Minutes Spent Total Time Spent with Patient: Total time spent is greater than 50% in coordination of care (as documented) at patient's floor/unit and/or counseling patient: Coding Level of Care Code None Diagnoses Foreign body in stomach T18.2XXA
[2022-03-29 07:02] LABS: Eosinophils # (auto) 0.01 K/uL (0-0.50); Eosinophils % (auto) 0.1 %; Hematocrit (blood only) 35.8 % (40.1-51.0); Hemoglobin 11.2 g/dl (14.0-18.0); Immature Granulocytes # (auto) 0.02 K/uL (0.00-0.02); Immature Granulocytes % (auto) 0.3 %; Lymphocytes # (auto) 1.01 K/uL (1.2-3.4); Lymphocytes % (auto) 13.2 %; Mean Corpuscular Hemoglobin 24.2 pg (25.0-34.0); Mean Corpuscular Hgb Conc 31.3 g/dL (32.0-36.0); Mean Corpuscular Volume 77.3 fL (80.0-100.0); Mean Platelet Volume 10.4 fL (9.4-12.4); Monocytes # (auto) 0.57 K/uL (0.24-0.82); Monocytes % (auto) 7.4 %; Neutrophils # (auto) 6.06 K/uL (1.4-6.5); Platelet Count 205 K/uL (130-400); RDW Coefficient of Variation 13.7 % (11.5-14.5); RDW Standard Deviation 38.7 fL (36.4-46.3); Red Blood Count 4.63 M/uL (4.63-6.08); White Blood Count 7.67 K/ul (4.8-10.8)
[2022-03-29 08:08] LABS: BUN Creatinine Ratio 12.2 (10-20); Calcium 8.8 mg/dl (8.5-10.1); Creatinine Clr Calc Pharmacy 133.6 ml/min; Est GFR (African American) 126.3 ml/min; Potassium 3.7 mmol/L (3.5-5.1)
[2022-03-29] MEDS: LITHIUM CARBONATE 300 MG TAB PO SCH ×2 (08:52→20:10)
[2022-03-29] MEDS: FAMOTIDINE 20 MG in SYRINGE 3 ML IV SCH ×2 (08:52→20:05)
[2022-03-29] MEDS: DOCUSATE SODIUM/SENNA 50/8.6MG TAB PO SCH (08:52)
[2022-03-29] MEDS: SODIUM CHLORIDE 0.9% 1000ML 1,000 ML IV SCH ×2 (08:52→20:01)
[2022-03-29] MEDS: ENOXAPARIN INJ 40 MG/0.4 ML SYR SQ SCH (13:52)
[2022-03-29] MEDS: MIRTAZAPINE SOLTAB 15 MG PO SCH (20:09)
[2022-03-29] MEDS: PARoxetine HCL 20 MG TAB PO SCH (20:10)
[2022-03-29] MEDS: haloperidoL 5 MG TAB PO SCH (20:34)
--- NOTE | 2022-03-29 22:04 | Hospitalist Progress Note ---
Date of Service March 29, 2022 Assessment & Plan (1) Self-harming behavior: Plan: history of such - numerous occasions with various objects, often by way of ingestion. No foreign material, detachable material, small pieces/parts should be in arms raised with patient at any time. This includes drawstrings to close/waistbands, EKG stickers, and any loose material. Patient has a recurrent history of quickly ingesting or placing foreign materials into orifices. adjust haldol (2) Foreign body in urethra: Plan: Foreign body in urethra - 03/25 and 03/27 - removal on 2 occasions by [facility] in the OR via cystoscopy Continue ceftriaxone 1 g IV daily (3) Foreign body in stomach: Plan: Underwent EGD 03/[address] Anderson, [facility]. Normal esophagus. 3 cm piece of plastic tied to a piece of headphones and a washer. This was unable to be extracted through upper esophageal sphincter due to wedging in the esophagus. Thus - s/p gastrotomy and foreign body removal (2 pieces been tied together with plastic washers) 03/27/2022 - Isaias Paiz MD. Patient self removed NGT overnight of 03/27 into 03/28, replacement deferred by surgery. Unfortunately had a retained foreign body after 03/27 gastrotomy procedure. Patient had 2nd EGD on 03/[address] Duval. 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 Cont NPO status. On Thursday will have barium swallow to ensure no leak from stomach. IV fluids. Pain meds prn. (4) Schizophrenia: Plan: Cont lithium BID - check lithium level in am. Increase haldol to 10mg HS and 5mg qam. Cont paxil. Consider cogentin. Cont remeron. Guards remain at bedside in light of #1. (5) Depression: Plan: meds as above (6) Anxiety: (7) Microcytic anemia: Plan: check Fe studies am (8) DVT prophylaxis: Plan: lovenox daily Admission and Anticipated Discharge Date Admission Date: March 29, 2022 Subjective patient without nausea or emesis passing flatus minimal abd pain at site of his surgical incision he asks for his haldol to be increased states he is hearing voices the voices are "deep" - probably a man - and they tell him to self-injure I asked him what the purpose of ingesting the objects is -- he states it is to "have the stomach rip open so I bleed internally and " he has had at least 30 ingestions according to the patient when I asked him if he had any suicidal plan in place he stated no Review of Systems Review of Systems: cv - no cp pulm - no dyspnea GI - incisional abd pain only - ruiz in place; no hematuria psych - denied visual hallucinations, but does see "shadows" occasionally Physical Exam Physical Exam: gen - NAD mouth - mmm neck - no JVD heart - RRR, s1 s2 lungs - CTA b/l abd - BS+, NT, abd wall incision clean, soft, minimal distension ext - no edema, pulses 2+ b/l Results & Data Results & Data ([facility]) Vital Signs (Past 12 Hours) Vital Signs Temp Pulse Resp BP Pulse Ox O2 Del Method 03/29/22 21:27 36.5 C 73 16 121/68 98 Room Air 03/29/22 15:05 36.8 C 72 16 126/66 100 Room Air Laboratory Results Laboratory Results - last 24 hr 03/29/22 03/29/22 06:28 06:28 WBC 7.67 RBC 4.63 Hgb 11.2 L Hct 35.8 L MCV 77.3 L MCH 24.2 L MCHC 31.3 L RDW Std Deviation 38.7 RDW Coeff of Bassem 13.7 Plt Count 205 MPV 10.4 Immature Gran % (Auto) 0.3 Neut % (Auto) 79.0 Lymph % (Auto) 13.2 Estill % (Auto) 7.4 Eos % (Auto) 0.1 Baso % (Auto) 0.0 Neut # (Auto) 6.06 Lymph # (Auto) 1.01 L Estill # (Auto) 0.57 Eos # (Auto) 0.01 Baso # (Auto) 0.00 Immature Gran # (Auto) 0.02 Sodium 139 Potassium 3.7 Chloride 106 Carbon Dioxide 27 Anion Gap 6 BUN 12 Creatinine 0.98 Est Cr Clr Drug Dosing 133.6 Est GFR ( Amer) 126.3 Est GFR (Non-Af Amer) 109.0 BUN/Creatinine Ratio 12.2 Glucose 96 Calcium 8.8 Magnesium 2.0 PG Care Time/CCT Total # of Minutes Spent Total Time Spent with Patient: Total time spent is greater than 50% in coordination of care (as documented) at patient's floor/unit and/or counseling patient: Coding Level of Care Code 55903 Subseq Hosp Care Lvl 2 Diagnoses Self-harming behavior Foreign body in urethra T19.0XXA Foreign body in stomach T18.2XXA Schizophrenia F20.0 Schizophrenia type: paranoid schizophrenia Depression F32.A Depression Type: unspecified Anxiety F41.9 Microcytic anemia D50.9 DVT prophylaxis Z29.9 (1) Depression Depression Type: unspecified Qualified Code(s): F32.A - Depression, unspecified (2) Schizophrenia Schizophrenia type: paranoid schizophrenia Qualified Code(s): F20.0 - Paranoid schizophrenia
[2022-03-30] MEDS: cefTRIAXone SODIUM 2,000 MG in DEXTROSE 5% 50 ML IV SCH (01:07)
--- NOTE | 2022-03-30 05:27 | Surgery Progress Note ---
Date of Service March 30, 2022 Assessment & Plan (1) Foreign body in stomach: Plan: Status post EGD on 03/26/2022 with unsuccessful attempt to remove foreign body Status post exploratory laparotomy with gastrotomy and removal of foreign body on 03/27/2022 (postop day #3); patient underwent cystoscopy with retrieval of foreign body on this day as well Status post EGD with removal of foreign body on 03/28/2022 Continue analgesics Continue antiemetics Continue n.p.o. status Continue IV fluids for hydration Mobilize as able Encourage use of incentive spirometer Continue plans to remain n.p.o. through the weekend; a swallow study is ordered for March 31 to ensure there is no gastric leak prior to advancing diet Admission and Anticipated Discharge Date Admission Date: March 29, 2022 Supervising Physician Co-Signing Physician Notes Patient seen and examined, agree with above. 22-year-old incarcerated male with history of ingestion of foreign bodies along with insertion of foreign bodies up his urethra. He is status post cystoscopy, as well as laparotomy with removal of foreign body through gastrotomy and closure. He then underwent EGD with removal of an additional foreign body that was not identified on initial surgery. He pulled his NG tube out overnight. On exam he is afebrile stable vitals. Abdomen is soft, nontender, incision clean dry and intact. He may have psych meds with sips, otherwise strict NPO through the weekend. Swallow study tomorrow. Dr. Paiz will resume care tomorrow Subjective Patient is resting comfortably in bed. He denies any nausea or vomiting. He denies any significant abdominal pain. Physical Exam Gastrointestinal (Abdomen): Abdomen is soft, nonrigid, nondistended. There is minimal pain with palpation. Results & Data ([facility]) Vital Signs (Past 12 Hours) Vital Signs Temp Pulse Resp BP Pulse Ox Pulse Ox O2 Del Method 03/29/22 20:06 Room Air 03/29/22 20:06 98 03/29/22 21:27 36.5 C 73 16 121/68 98 Room Air O2 Del Method 03/29/22 20:06 03/29/22 20:06 Room Air 03/29/22 21:27 PG Care Time/CCT Total # of Minutes Spent Total Time Spent with Patient: Total time spent is greater than 50% in coordination of care (as documented) at patient's floor/unit and/or counseling patient: Coding Level of Care Code None Diagnoses Foreign body in stomach T18.2XXA
[2022-03-30 06:08] LABS: Hematocrit (blood only) 33.1 % (40.1-51.0); Hemoglobin 10.4 g/dl (14.0-18.0); Mean Corpuscular Hemoglobin 24.3 pg (25.0-34.0); Mean Corpuscular Hgb Conc 31.4 g/dL (32.0-36.0); Mean Corpuscular Volume 77.3 fL (80.0-100.0); Mean Platelet Volume 10.4 fL (9.4-12.4); Platelet Count 184 K/uL (130-400); RDW Coefficient of Variation 13.7 % (11.5-14.5); RDW Standard Deviation 38.4 fL (36.4-46.3); Red Blood Count 4.28 M/uL (4.63-6.08); White Blood Count 6.78 K/ul (4.8-10.8)
[2022-03-30 06:40] LABS: BUN Creatinine Ratio 9.8 (10-20); Calcium 8.6 mg/dl (8.5-10.1); Creatinine Clr Calc Pharmacy 116.9 ml/min; Est GFR (African American) 107.5 ml/min; Est GFR (Non-African American) 92.7 ml/min; Potassium 3.6 mmol/L (3.5-5.1)
[2022-03-30 06:46] LABS: Ferritin 69.7 ng/ml (8-388)
[2022-03-30] MEDS ORDERED: haloperidoL 5 MG TAB PO SCH (09:00)
[2022-03-30] MEDS: FAMOTIDINE 20 MG in SYRINGE 3 ML IV SCH ×2 (09:08→19:40)
[2022-03-30] MEDS: SODIUM CHLORIDE 0.9% 1000ML 1,000 ML IV SCH ×2 (09:08→21:54)
[2022-03-30] MEDS: ENOXAPARIN INJ 40 MG/0.4 ML SYR SQ SCH (09:09)
[2022-03-30] MEDS: LITHIUM CARBONATE 300 MG TAB PO SCH ×2 (09:09→19:37)
[2022-03-30] MEDS: MoRPHine SULFATE 4 MG/ML 1 ML CARP\\VIAL IV PRN ×4 (09:14→19:40)
[2022-03-30] MEDS: PARoxetine HCL 20 MG TAB PO SCH (19:36)
[2022-03-30] MEDS: haloperidoL 5 MG TAB PO SCH (19:36)
[2022-03-30] MEDS: MIRTAZAPINE SOLTAB 15 MG PO SCH (19:38)
--- NOTE | 2022-03-30 21:22 | Hospitalist Progress Note ---
Date of Service March 30, 2022 Assessment & Plan (1) Foreign body in stomach: Plan: Underwent EGD 03/[address] Anderson, [facility]. Normal esophagus. 3 cm piece of plastic tied to a piece of headphones and a washer. This was unable to be extracted through upper esophageal sphincter due to wedging in the esophagus. Thus - s/p gastrotomy and foreign body removal (2 pieces been tied together with plastic washers) 03/27/2022 - Isaias Paiz MD. Thus, today is POD #3 from that procedure. Patient self removed NGT overnight of 03/27 into 03/28, replacement deferred by surgery. Unfortunately had a retained foreign body after 03/27 gastrotomy procedure. Patient had 2nd EGD on 03/[address] Duval of [facility]. 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 Cont NPO status. 03/31 - will have barium swallow to ensure no leak from stomach. if no leak then clears to be started. Cont IV fluids - add dextrose and KCL to fluids. BMP in am. Pain meds prn. Cont IV pepcid 20mg BID. (2) Self-harming behavior: Plan: history of such - numerous occasions with various objects, often by way of ingestion. No foreign material, detachable material, small pieces/parts should be in arms raised with patient at any time. This includes drawstrings to close/waistbands, EKG stickers, and any loose material. Patient has a recurrent history of quickly ingesting or placing foreign materials into orifices. (3) Foreign body in urethra: Plan: Foreign body in urethra - 03/25 and 03/27 - removal on 2 occasions by [facility] in the [place] via cystoscopy Continue ceftriaxone 1 g IV daily recent urine cx negative (4) Schizophrenia: Plan: Cont lithium BID - level nontoxic range this am. Increased haldol dose of 10mg HS has resolved the hearing of voices. Cont paxil. Cont remeron. Guards remain at bedside in light of #1. (5) Depression: Plan: meds as above (6) Anxiety: Plan: meds as above (7) Microcytic anemia: Plan: Fe studies wnl could have thalaseemia consider checking lead level due to numerous ingestions of various types of metal objects (8) DVT prophylaxis: Plan: lovenox daily Admission and Anticipated Discharge Date Admission Date: March 29, 2022 Subjective patient resting comfortably in bed watching TV no bowel movement but passing flatus no abd pain today no nausea or emesis asks when he can have liquids states that the voices he was hearing yesterday are resolved Review of Systems Review of Systems: gen - feels ok cv - no cp pulm - no dyspnea, no cough GI - no abd pain - ruiz remains in place Physical Exam Physical Exam: gen - NAD, lying comfortably in bed mouth - mmm neck - no JVD heart - RRR, s1 s2, no murmur lungs - CTA b/l abd - BS+, NT, abd wall incision clean, soft, ND ext - no edema, pulses 2+ b/l psych - not responding to internal stimuli, awake, alert, normal conversational speech Results & Data Results & Data ([facility]) Vital Signs (Past 12 Hours) Vital Signs Temp Pulse Resp BP Pulse Ox O2 Del Method 03/30/22 14:34 36.8 C 65 16 125/76 98 Room Air Laboratory Results Laboratory Results - last 24 hr 03/30/22 03/30/22 03/30/22 05:49 05:49 06:47 WBC 6.78 RBC 4.28 L Hgb 10.4 L Hct 33.1 L MCV 77.3 L MCH 24.3 L MCHC 31.4 L RDW Std Deviation 38.4 RDW Coeff of Bassem 13.7 Plt Count 184 MPV 10.4 Sodium 140 Potassium 3.6 Chloride 107 Carbon Dioxide 26 Anion Gap 7 BUN 11 Creatinine 1.12 Est Cr Clr Drug Dosing 116.9 Est GFR ( Amer) 107.5 Est GFR (Non-Af Amer) 92.7 BUN/Creatinine Ratio 9.8 L Glucose 88 Calcium 8.6 Iron 47 TIBC 255 Unsaturated IBC 208 Transferrin % Sat 18 L Ferritin 69.7 Rollins 0.4 L PG Care Time/CCT Total # of Minutes Spent Total Time Spent with Patient: Total time spent is greater than 50% in coordination of care (as documented) at patient's floor/unit and/or counseling patient: Coding Level of Care Code 77933 Subseq Hosp Care Lvl 2 Diagnoses Foreign body in stomach T18.2XXA Self-harming behavior Foreign body in urethra T19.0XXA Schizophrenia F20.0 Schizophrenia type: paranoid schizophrenia Depression F32.A Depression Type: unspecified Anxiety F41.9 Microcytic anemia D50.9 DVT prophylaxis Z29.9 (1) Schizophrenia Schizophrenia type: paranoid schizophrenia Qualified Code(s): F20.0 - Paranoid schizophrenia (2) Depression Depression Type: unspecified Qualified Code(s): F32.A - Depression, unspecified
[2022-03-30] MEDS: D5W AND 1/2NSS + 20MEQ KCL 20 MEQ/1,000 ML BAG IV SCH (21:53)
[2022-03-31] MEDS: cefTRIAXone SODIUM 2,000 MG in DEXTROSE 5% 50 ML IV SCH (00:30)
[2022-03-31] MEDS: MoRPHine SULFATE 4 MG/ML 1 ML CARP\\VIAL IV PRN ×5 (01:35→20:20)
[2022-03-31] MEDS: D5W AND 1/2NSS + 20MEQ KCL 20 MEQ/1,000 ML BAG IV SCH ×2 (08:30→18:21)
[2022-03-31] MEDS: ENOXAPARIN INJ 40 MG/0.4 ML SYR SQ SCH (08:32)
[2022-03-31] MEDS: LITHIUM CARBONATE 300 MG TAB PO SCH ×2 (08:34→20:20)
[2022-03-31] MEDS: FAMOTIDINE 20 MG in SYRINGE 3 ML IV SCH ×2 (08:37→20:20)
[2022-03-31 09:00] LABS: BUN Creatinine Ratio 7.3 (10-20); Creatinine Clr Calc Pharmacy 120.1 ml/min; Est GFR (African American) 111.1 ml/min; Est GFR (Non-African American) 95.8 ml/min; Potassium 3.4 mmol/L (3.5-5.1)
--- NOTE | 2022-03-31 12:00 | Surgery Progress Note ---
Date of Service March 31, 2022 Assessment & Plan (1) Foreign body in stomach: Plan POD#4 s/p ex lap and gastrotomy/removal of foreign objects; POD#3 s/p EGD. UGI today if UGI ok, start liquids continue to monitor DVT prophylaxis with SCDs/enoxaparin aggressive pulmonary toilet Admission and Anticipated Discharge Date Admission Date: March 29, 2022 Subjective POD#4 s/p ex laparotomy with gastrotomy and removal of foreign objects. minimal pain. no nausea/vomiting. no fevers. passing flatus. Physical Exam Physical Exam: Abdomen soft, mild TTP; no guarding; incision healing well, C/D/I with dermabond Results & Data ([facility]) Vital Signs (Past 12 Hours) Vital Signs Temp Pulse Resp BP Pulse Ox O2 Del Method 03/31/22 07:55 36.6 C 63 16 123/79 98 Room Air Laboratory Results 03/31/22 03/31/22 Range/Units 08:00 08:00 Sodium 138 (136-145) mmol/L Potassium 3.4 L (3.5-5.1) mmol/L Chloride 103 (98-107) mmol/L Carbon Dioxide 32 (21-32) mmol/L Anion Gap 3 (3-11) BUN 8 (6-23) mg/dl Creatinine 1.09 (0.6-1.4) mg/dl Est Cr Clr Drug Dosing 120.1 ml/min Est GFR ( Amer) 111.1 ml/min Est GFR (Non-Af Amer) 95.8 ml/min BUN/Creatinine Ratio 7.3 L (10-20) Glucose 97 (70-99(Fasting)) mg/dl Calcium 9.0 (8.5-10.1) mg/dl Arsenic Pending Lead Pending Mercury Pending
--- NOTE | 2022-03-31 13:57 | Fluoroscopy Report ---
SINGLE CONTRAST UPPER GI SERIES CLINICAL HISTORY: Postoperative examination. Gastrotomy with removal of foreign bodies. COMPARISON STUDY: Abdominal CT dated 03/24/2022. TECHNIQUE: A single air contrast upper GI series was performed. The patient consumed approximately 1 50 cc of Optiray 320 while spot images of the esophagus and stomach were obtained in multiple obliqui ties. FINDINGS: The patient swallowed contrast without difficulty. The esophagus is structurally normal without evide nce of intrinsic or extrinsic mass. No gastroesophageal reflux was observed during the examination. T he gastroesophageal junction distends normally. The stomach is normal in configuration. 2 linear metallic foreign bodies project over the stomach. 2 additional foreign bodies project more inferiorly over the thoracic spine. No extraluminal contrast i s identified. There is no evidence of mass or ulceration. The duodenal bulb and sweep are unremarkabl e. Fluoroscopy time: 0.6 minutes Fluoroscopic images: 16 IMPRESSION: 1. There are 2 linear metallic foreign bodies projecting over the stomach. These could represent keagan sted foreign bodies versus postsurgical change. 2. There are 2 additional foreign bodies seen projecting over the lumbar spine. 3. The esophagus is patent and there is no evidence of contrast leakage from the stomach. ACT 112: Negative or not required by law. Electronically signed by: Henrique Slaughter M.D. 03/31/2022 1:56 PM
[2022-03-31] MEDS ORDERED: POTASSIUM CHLORIDE CRTAB 20 MEQ TABCR PO STA (16:11)
[2022-03-31] MEDS ORDERED: MAGNESIUM SULFATE / D5W 1 GM/100 ML BAG IV ONE (16:15)
--- NOTE | 2022-03-31 20:07 | Hospitalist Progress Note ---
Date of Service March 31, 2022 Assessment & Plan (1) Foreign body in stomach: Plan: Underwent EGD 03/[address] Anderson, [facility]. Normal esophagus. 3 cm piece of plastic tied to a piece of headphones and a washer. This was unable to be extracted through upper esophageal sphincter due to wedging in the esophagus. Thus - s/p gastrotomy and foreign body removal (2 pieces been tied together with plastic washers) 03/27/2022 - Isaias Paiz MD. Thus, today is POD #3 from that procedure. Patient self removed NGT overnight of 03/27 into 03/28, replacement deferred by surgery. Unfortunately had a retained foreign body after 03/27 gastrotomy procedure. Patient had 2nd EGD on 03/[address] Duval of [facility]. 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 s/p upper GI series today - no leak from stomach, ?retained foreign bodies x 2. clear liquid diet started by surgery. defer diet management to surgery. HEAVY METAL SCREEN DISPATCHED DUE TO NUMEROUS INGESTIONS OF VARIOUS METAL OBJECTS WHICH PUTS HIM AT RISK OF TOXICITY. (2) Self-harming behavior: Plan: history of such - numerous occasions with various objects, often by way of ingestion. No foreign material, detachable material, small pieces/parts should be in arms raised with patient at any time. This includes drawstrings to close/waistbands, EKG stickers, and any loose material. Patient has a recurrent history of quickly ingesting or placing foreign materials into orifices. (3) Foreign body in urethra: Plan: Foreign body in urethra - 03/25 and 03/27 - removal on [address] [facility] in the [place] via cystoscopy Continue ceftriaxone 1 g IV daily recent urine cx negative I corresponded with [facility] today - recommended to leave riuz in place until day of discharge, then remove for trial of void (4) Schizophrenia: Plan: Cont lithium BID - level nontoxic range this am. Increased haldol dose of 10mg HS has resolved the hearing of voices. Cont paxil. Cont remeron. Guards remain at bedside in light of #1. (5) Depression: Plan: meds as above (6) Anxiety: Plan: meds as above (7) Microcytic anemia: Plan: Fe studies wnl could have thalaseemia could have high lead levels HEAVY METAL SCREEN PENDING repeat cbc am (8) DVT prophylaxis: Plan: lovenox daily (9) Bilateral calf pain: Plan: could be 2nd to low K - replace with IV and PO KCL check dopplers - r/o DVT (10) Hypokalemia: Plan: added KCL to IV fluids K-dur 20meq po x 1 mag sulfate 1gm IV x 1 repeat BMP and mag in am Admission and Anticipated Discharge Date Admission Date: March 29, 2022 Subjective upper GI series done - no gastric leak, clears started by gen surg ruiz remain in place draining clear, yellow urine patient denies any visual or auditory hallucinations today only complaint is that of calf cramps in left calf had such earlier today Review of Systems Review of Systems: gen - feels well cv - no chest pain pulm - no cough or dyspnea GI - no pain, no nausea, passing flatus; no BM yet Physical Exam Physical Exam: gen - NAD, lying comfortably in bed mouth - mmm neck - no JVD heart - RRR, s1 s2, no murmur lungs - CTA b/l abd - BS+, NT, abd wall incision clean, soft, ND ext - no edema, pulses 2+ b/l, no calf tenderness to palpation b/l psych - not responding to internal stimuli, awake, alert, normal conversational speech Results & Data Results & Data ([facility]) Vital Signs (Past 12 Hours) Vital Signs Temp Pulse Resp BP Pulse Ox O2 Del Method 03/31/22 15:45 36.6 C 64 16 124/72 98 Room Air Laboratory Results Laboratory Results - last 24 hr 03/31/22 03/31/22 08:00 08:00 Sodium 138 Potassium 3.4 L Chloride 103 Carbon Dioxide 32 Anion Gap 3 BUN 8 Creatinine 1.09 Est Cr Clr Drug Dosing 120.1 Est GFR ( Amer) 111.1 Est GFR (Non-Af Amer) 95.8 BUN/Creatinine Ratio 7.3 L Glucose 97 Calcium 9.0 Arsenic Pending Lead Pending Mercury Pending PG Care Time/CCT Total # of Minutes Spent Total Time Spent with Patient: Total time spent is greater than 50% in coordination of care (as documented) at patient's floor/unit and/or counseling patient: Coding Level of Care Code 11851 Subseq Hosp Care Lvl 3 Diagnoses Foreign body in stomach T18.2XXA Self-harming behavior Foreign body in urethra T19.0XXA Schizophrenia F20.0 Schizophrenia type: paranoid schizophrenia Depression F32.A Depression Type: unspecified Anxiety F41.9 Microcytic anemia D50.9 DVT prophylaxis Z29.9 Bilateral calf pain M79.661; M79.662 Hypokalemia E87.6 (1) Depression Depression Type: unspecified Qualified Code(s): F32.A - Depression, unspecified (2) Schizophrenia Schizophrenia type: paranoid schizophrenia Qualified Code(s): F20.0 - Paranoid schizophrenia
[2022-03-31] MEDS: haloperidoL 5 MG TAB PO SCH (20:19)
[2022-03-31] MEDS: MIRTAZAPINE SOLTAB 15 MG PO SCH (20:20)
[2022-03-31] MEDS: PARoxetine HCL 20 MG TAB PO SCH (20:31)
[2022-04-01] MEDS: cefTRIAXone SODIUM 2,000 MG in DEXTROSE 5% 50 ML IV SCH (00:52)
[2022-04-01] MEDS: MoRPHine SULFATE 4 MG/ML 1 ML CARP\\VIAL IV PRN ×6 (00:53→20:54)
--- NOTE | 2022-04-01 04:55 | Communication Note ---
Date of Service: April 01, 2022 Notified by patient's RN that patient self-removed ruiz catheter at around 4:00 AM. Patient states that he went to the bathroom to have a bowel movement and the "ruiz came out." On further questioning, patient admits that he pulled the ruiz out because he feels that he can void without it. He states that the ruiz bulb was 1/2 full when he removed the catheter. He reports some mild bleeding at the tip of the penis after removal but this has resolved. Patient denies insertion of any foreign body into the urethra/penis. However, there are concerns from nursing that a safety pin has been missing since (5 days ago) after he removed his NG tube s/p gastrotomy; this pin has still not been accounted for and patient's bed linens were changed today w/o evidence of the lost pin. VSS. Patient resting comfortably in bed. Right arm is restrained with handcuff, left arm is unrestrained. Unlabored respirations. exam: Penis is circumcised. There is no blood at the urethral meatus. No lesions at the glans of the penis. No obvious foreign body palpated in the penis. No foreign body visualized at urethral meatus. Reviewed notes in chart including primary service, GI, surgery, and urology. Patient has had multiple procedures related to removal of foreign bodies: - POD #5 s/p ex lap and gastrotomy/removal of foreign objects - POD#4 s/p EGD w/ removal of foreign body - POD #6 s/p EGD w/ unsuccessful removal of foreign body due to items becoming wedged in the esophagus - POD #5 s/p cystscopy w/ removal of foreign body - POD#7 s/p cystoscopy w/ extraction of foreign body Patient states that he has voided in toilet since removal of the ruiz. I advised patient that he should void in bedside urinal so that void can be documented. Resident Activity Tracking Resident Involvement: Resident Care Provided Care Provided: Adult [facility]
[2022-04-01] MEDS: D5W AND 1/2NSS + 20MEQ KCL 20 MEQ/1,000 ML BAG IV SCH ×3 (05:13→23:26)
--- NOTE | 2022-04-01 07:13 | Ultrasound Report ---
BILATERAL LOWER EXTREMITY VENOUS DOPPLER HISTORY: b/l calf cramps; prolonged immobility; eval DVT COMPARISON STUDY: None. FINDINGS: There is normal compressibility, flow, and augmentation within the bilateral lower extremit y deep venous systems. IMPRESSION: No DVT within the right or left lower extremity. ACT 112: Negative or not required by law. Electronically signed by: Richard Aburto M.D. 04/01/2022 7:12 AM
[2022-04-01 07:16] LABS: Hematocrit (blood only) 35.1 % (40.1-51.0); Mean Corpuscular Hemoglobin 24.3 pg (25.0-34.0); Mean Corpuscular Hgb Conc 31.3 g/dL (32.0-36.0); Mean Corpuscular Volume 77.7 fL (80.0-100.0); Platelet Count 220 K/uL (130-400); RDW Coefficient of Variation 13.4 % (11.5-14.5); RDW Standard Deviation 37.8 fL (36.4-46.3); Red Blood Count 4.52 M/uL (4.63-6.08); White Blood Count 5.06 K/ul (4.8-10.8)
[2022-04-01 07:47] LABS: BUN Creatinine Ratio 6.3 (10-20); Calcium 9.1 mg/dl (8.5-10.1); Creatinine Clr Calc Pharmacy 117.9 ml/min; Est GFR (African American) 108.7 ml/min; Est GFR (Non-African American) 93.8 ml/min; Magnesium 1.7 mg/dl (1.7-2.4); Potassium 3.7 mmol/L (3.5-5.1)
[2022-04-01] MEDS: LITHIUM CARBONATE 300 MG TAB PO SCH ×2 (08:03→20:57)
[2022-04-01] MEDS: ENOXAPARIN INJ 40 MG/0.4 ML SYR SQ SCH (08:03)
[2022-04-01] MEDS: FAMOTIDINE 20 MG in SYRINGE 3 ML IV SCH ×2 (08:06→20:52)
--- NOTE | 2022-04-01 14:46 | Surgery Progress Note ---
Date of Service April 01, 2022 Assessment & Plan (1) Foreign body in stomach: Plan POD#5 s/p ex lap and gastrotomy/removal of foreign objects; POD#3 s/p EGD. advance diet as tolerated continue to monitor DVT prophylaxis with SCDs/enoxaparin aggressive pulmonary toilet Admission and Anticipated Discharge Date Admission Date: March 29, 2022 Subjective still doing well; no nausea/vomiting; passing flatus; UGI negative; two buttons and a paperclip on Xray, seem to be moving through Physical Exam Physical Exam: Abdomen soft, mild TTP; no guarding; incision healing well, C/D/I with dermabond Results & Data ([facility]) Vital Signs (Past 12 Hours) Vital Signs Temp Pulse Resp BP Pulse Ox O2 Del Method 04/01/22 08:10 36.4 C L 63 14 112/75 99 Room Air
--- NOTE | 2022-04-01 15:15 | Hospitalist Progress Note ---
Date of Service April 01, 2022 Assessment & Plan (1) Foreign body in stomach: Plan: Underwent EGD 03/[address] Anderson, [facility]. Normal esophagus. 3 cm piece of plastic tied to a piece of headphones and a washer. This was unable to be extracted through upper esophageal sphincter due to wedging in the esophagus. Thus - s/p gastrotomy and foreign body removal (2 pieces been tied together with plastic washers) 03/27/2022 - Isaias Paiz MD. Patient self removed NGT overnight of 03/27 into 03/28, replacement deferred by surgery. Unfortunately had a retained foreign body after 03/27 gastrotomy procedure. Patient had 2nd EGD on 03/[address] Duval of [facility]. 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 s/p upper GI series on 03/31- no leak from stomach, ?retained foreign bodies x 2. KUB ordered today, 04/01, again shows buttonlike foreign bodies and a total of 4 foreign bodies-it seems these are new in the last 2 days compared to previous imaging on 03/28-suspicion that he ingested further foreign body since the last EGD clear liquid diet started by surgery. defer diet management to surgery-advance as tolerated. HEAVY METAL SCREEN DISPATCHED DUE TO NUMEROUS INGESTIONS OF VARIOUS METAL OBJECTS WHICH PUTS HIM AT RISK OF TOXICITY. -The [facility] has dictated that the patient now remain in three-point restraints, he has a spit mask in place, and they have asked for soft mitts to be placed on both hands to prevent him from continuing to ingest more foreign bodies. -Continue to follow daily KUB -Continue to monitor bowel habits and prevent constipation (2) Self-harming behavior: Plan: history of such - numerous occasions with various objects, often by way of ingestion. Unclear if this is due to psychiatric condition or malingering No foreign material, detachable material, small pieces/parts should be in arms raised with patient at any time. This includes drawstrings to close/waistbands, EKG stickers, and any loose material. Patient has a recurrent history of quickly ingesting or placing foreign materials into orifices. (3) Foreign body in urethra: Plan: Foreign body in urethra - 03/25 and 03/27 - removal on 2 occasions by [facility] in the OR via cystoscopy He then poked a hole in his Ruiz catheter and deflated the balloon and pulled it out himself overnight on 03/31 No evidence of trauma to the penis on exam on 04/01 Continue ceftriaxone 1 g IV daily empirically recent urine cx negative Appreciate urology consultation Again, taking precautions as above to avoid recurrent placement of foreign body in the urethra (4) Schizophrenia: Plan: Cont lithium BID - level nontoxic range this am. Increased haldol dose of 10mg HS has resolved the hearing of voices. Cont paxil. Cont remeron. Guards remain at bedside (5) Depression: Plan: meds as above (6) Anxiety: Plan: meds as above (7) Microcytic anemia: Plan: Fe studies wnl could have thalassemia could have high lead levels HEAVY METAL SCREEN PENDING repeat cbc am (8) DVT prophylaxis: Plan: lovenox daily (9) Bilateral calf pain: Plan: could be 2nd to low magnesium- replace with IV magnesium today Lower extremity Dopplers negative for DVT (10) Hypokalemia: Plan: Continue KCL to IV fluids repeat BMP and mag in am Plan Disposition-[facility] physician requested that he stay in the hospital until all foreign bodies have passed Admission and Anticipated Discharge Date Admission Date: March 29, 2022 Subjective Pt reportedly poked a hole in his ruiz and pulled it out while unsupervised in the bathroom overnight. Reports he is moving his bowels today and that there is blood in the stool. RN reports brown stool. Pt reports pain in abd at site of surgery. Skilled Nursing Lieutenant came to the hospital and recommending three point restraints and soft mitts for both hands because patient continues to somehow be ingesting new foreign bodies despite being watched by guards. Reviewed safety with RN as far as avoidance of anything that can be ingested. He was changed to paper scrubs as well. Review of Systems Review of Systems: All systems reviewed & are unremarkable except as noted in HPI & below Still complains of some calf cramps Physical Exam Physical Exam: gen - NAD, lying comfortably in bed mouth - mmm neck - no JVD heart - RRR, s1 s2, no murmur lungs - CTA b/l abd - BS+, NT, abd wall incision clean, soft, ND -penis and testicles appear normal, no blood from the meatus, no trauma ext - no edema, pulses 2+ b/l, no calf tenderness to palpation b/l psych - not responding to internal stimuli, awake, alert, normal conversational speech Results & Data Results & Data ([facility]) Vital Signs (Past 12 Hours) Vital Signs Temp Pulse Resp BP Pulse Ox O2 Del Method 04/01/22 08:10 36.4 C L 63 14 112/75 99 Room Air Laboratory Results 04/01/22 04/01/22 Range/Units 06:32 06:32 WBC 5.06 (4.8-10.8) K/ul RBC 4.52 L (4.63-6.08) M/uL Hgb 11.0 L (14.0-18.0) g/dl Hct 35.1 L (40.1-51.0) % MCV 77.7 L (80.0-100.0) fL MCH 24.3 L (25.0-34.0) pg MCHC 31.3 L (32.0-36.0) g/dL RDW Std Deviation 37.8 (36.4-46.3) fL RDW Coeff of Bassem 13.4 (11.5-14.5) % Plt Count 220 (130-400) K/uL MPV 10.0 (9.4-12.4) fL Sodium 138 (136-145) mmol/L Potassium 3.7 (3.5-5.1) mmol/L Chloride 104 (98-107) mmol/L Carbon Dioxide 30 (21-32) mmol/L Anion Gap 4 (3-11) BUN 7 (6-23) mg/dl Creatinine 1.11 (0.6-1.4) mg/dl Est Cr Clr Drug Dosing 117.9 ml/min Est GFR ( Amer) 108.7 ml/min Est GFR (Non-Af Amer) 93.8 ml/min BUN/Creatinine Ratio 6.3 L (10-20) Glucose 94 (70-99(Fasting)) mg/dl Calcium 9.1 (8.5-10.1) mg/dl Magnesium 1.7 (1.7-2.4) mg/dl Diagnostic Findings Lower extremity venous Dopplers negative for DVT PG Care Time/CCT Total # of Minutes Spent Total Time Spent with Patient: Total time spent is greater than 50% in coordination of care (as documented) at patient's floor/unit and/or counseling patient: Coding Level of Care Code 99002 Subseq Hosp Care Lvl 2 Diagnoses Foreign body in stomach T18.2XXA Self-harming behavior Foreign body in urethra T19.0XXA Schizophrenia F20.0 Schizophrenia type: paranoid schizophrenia Depression F32.A Depression Type: unspecified Anxiety F41.9 Microcytic anemia D50.9 DVT prophylaxis Z29.9 Bilateral calf pain M79.661; M79.662 Hypokalemia E87.6 (1) Depression Depression Type: unspecified Qualified Code(s): F32.A - Depression, unspecified (2) Schizophrenia Schizophrenia type: paranoid schizophrenia Qualified Code(s): F20.0 - Paranoid schizophrenia
--- NOTE | 2022-04-01 15:39 | XRay Report ---
KUB CLINICAL HISTORY: Follow-up foreign body ingestion. FINDINGS: 2 AP supine abdominal radiographs are compared to study dated 03/28/2022 and correlated with abdominal CT dated 03/24/2022. There is a nonobstructed abdominal bowel gas pattern. Evaluation of fo reign bodies is degraded by residual enteric contrast throughout the colon. There is suture material of left hemidiaphragm. Linear metallic foreign bodies are again seen projecting over the stomach. The re are at least 4 additional radiodense foreign bodies seen projecting over the mid to lower abdomen. Enteric contrast in the transverse colon outlines an additional foreign body. There is no evidence o f intraperitoneal free air on these supine images. The bony structures appear intact. The lung bases are clear as visualized. IMPRESSION: 1. Scattered intra-abdominal foreign bodies as above. 2. Residual enteric contrast is seen throughout the colon. Electronically signed by: Henrique Slaughter M.D. 04/01/2022 3:37 PM
[2022-04-01] MEDS: MAGNESIUM SULFATE / D5W 1 GM/100 ML BAG IV SCH ×2 (15:50→17:29)
[2022-04-01] MEDS: haloperidoL 5 MG TAB PO SCH (20:56)
[2022-04-01] MEDS: MIRTAZAPINE SOLTAB 15 MG PO SCH (20:57)
[2022-04-01] MEDS: PARoxetine HCL 20 MG TAB PO SCH (20:59)
[2022-04-02] MEDS: cefTRIAXone SODIUM 2,000 MG in DEXTROSE 5% 50 ML IV SCH (00:22)
--- NOTE | 2022-04-02 06:12 | Communication Note ---
Date of Service: April 02, 2022 Notified by nursing that "patient did not urinate all night. HIs bladder has over 999." As noted in commnication note last night, patient did remove his F oley early yesterday morning. Per RN report, patient had one void yesterday during the day; no void overnight. Per chart review, recommendation from urology is for ruiz to be maintained until discharge. Placed order for RN to attempt placement of Ruiz catheter. Unfortunately, RN unable to insertion Ruiz. Case reviewed with urology. Per urology recommendation, will make pt NPO and order placed for pelvic XR to evaluate for foreign body in penis/urethra. Resident Activity Tracking Resident Involvement: Resident Care Provided Care Provided: Adult [facility] Medicine
[2022-04-02 06:35] LABS: Basophils # (auto) 0.01 K/uL (0-0.2); Basophils % (auto) 0.2 %; Eosinophils # (auto) 0.19 K/uL (0-0.50); Eosinophils % (auto) 4.7 %; Hematocrit (blood only) 39.8 % (40.1-51.0); Hemoglobin 12.4 g/dl (14.0-18.0); Immature Granulocytes # (auto) 0.01 K/uL (0.00-0.02); Immature Granulocytes % (auto) 0.2 %; Lymphocytes % (auto) 24.8 %; Mean Corpuscular Hemoglobin 24.2 pg (25.0-34.0); Mean Corpuscular Hgb Conc 31.2 g/dL (32.0-36.0); Mean Corpuscular Volume 77.6 fL (80.0-100.0); Mean Platelet Volume 10.5 fL (9.4-12.4); Monocytes # (auto) 0.44 K/uL (0.24-0.82); Monocytes % (auto) 10.9 %; Neutrophils # (auto) 2.39 K/uL (1.4-6.5); Neutrophils % (auto) 59.2 %; Platelet Count 252 K/uL (130-400); RDW Coefficient of Variation 13.5 % (11.5-14.5); RDW Standard Deviation 38.2 fL (36.4-46.3); Red Blood Count 5.13 M/uL (4.63-6.08); White Blood Count 4.04 K/ul (4.8-10.8)
[2022-04-02 07:02] LABS: Albumin Globulin Ratio 1.2 (0.9-2); Albumin Level 4.1 gm/dl (3.4-5.0); BUN Creatinine Ratio 4.9 (10-20); Bilirubin,Total 0.2 mg/dl (0.2-1.0); Calcium 9.6 mg/dl (8.5-10.1); Creatinine Clr Calc Pharmacy 107.3 ml/min; Est GFR (African American) 96.9 ml/min; Est GFR (Non-African American) 83.6 ml/min; Globulin 3.3 gm/dl (2.5-4.0); Magnesium 1.9 mg/dl (1.7-2.4); Potassium 3.9 mmol/L (3.5-5.1); Total Protein 7.4 gm/dl (6.0-8.3)
--- NOTE | 2022-04-02 07:34 | XRay Report ---
SERIAL VIEW PELVIS CLINICAL HISTORY: Possible foreign body within the penis. FINDINGS: An AP, portable, supine view of the hips and lower pelvis is correlated with pelvic CT date d 03/24/2022. The skeletal structures are well mineralized. No fracture is identified. The joint space s of the hips are maintained. There is residual enteric contrast within the rectosigmoid colon. No ra diodense foreign body projects over the penis. IMPRESSION: No radiodense foreign body is seen projecting over the penis. Clinical correlation will b e required. Electronically signed by: Henrique Slaughter M.D. 04/02/2022 7:33 AM
[2022-04-02] MEDS: ENOXAPARIN INJ 40 MG/0.4 ML SYR SQ SCH (07:50)
[2022-04-02] MEDS: LITHIUM CARBONATE 300 MG TAB PO SCH ×2 (07:50→21:46)
[2022-04-02] MEDS: FAMOTIDINE 20 MG in SYRINGE 3 ML IV SCH (07:51)
[2022-04-02] MEDS: D5W AND 1/2NSS + 20MEQ KCL 20 MEQ/1,000 ML BAG IV SCH (07:51)
[2022-04-02] MEDS: MoRPHine SULFATE 2 MG/ML CARP IV PRN ×2 (07:56→12:12)
--- NOTE | 2022-04-02 08:11 | XRay Report ---
KUB HISTORY: Follow up study in a patient with foreign body ingestion f/u foreign bodies COMPARISON: KUB 04/01/2022 FINDINGS: Bowel gas pattern is nonobstructive. Retained enteric contrast within the large bowel. Ther e is a total of approximately 10 radiopaque foreign bodies projected over the abdomen, most of which are likely within the large bowel. 7 mm mid abdominal foreign body at the level of L3 is likely withi n a loop of small bowel. Several foci have slightly progressed through the large bowel. Surgical sutu re material within the abdominal left upper quadrant. No renal calculi. No ureteral calculi. No pneum operitoneum or pneumatosis. No fracture. IMPRESSION: 1. Nonobstructive bowel gas pattern. No pneumoperitoneum. 2. Numerous radiopaque foreign bodies redemonstrated as above. 3. Residual enteric contrast within the large bowel. ACT 112: Negative or not required by law. The above report was generated using voice recognition software. It may contain grammatical, syntax o r spelling errors. Electronically signed by: Bernardino Rome M.D. 04/02/2022 8:09 AM
[2022-04-02] MEDS ORDERED: POLYETHYLENE (MIRALAX) 17 GM PACK PO SCH ×2 (11:45→21:00)
--- NOTE | 2022-04-02 15:02 | Hospitalist Progress Note ---
Date of Service April 02, 2022 Assessment & Plan (1) Foreign body in stomach: Plan: Intentional ingestion of multiple FBs--> frequent admissions and ER visits for such in the last 6 months Underwent EGD 03/[address] Anderson, [facility]. Normal esophagus. 3 cm piece of gurpreet stic tied to a piece of headphones and a washer. This was unable to be extracted through upper esophageal sphincter due to wedging in the esophagus. Thus - s/p gastrotomy and foreign body removal (2 pieces been tied together with plastic washers) 03/27/2022 - Isaias Paiz MD. Patient self removed NGT overnight of 03/27 into 03/28, replacement deferred by surgery. Unfortunately had a retained foreign body after 03/27 gastrotomy procedure. Patient had 2nd EGD on 03/[address] Duval of [facility]. EGD showed medium sized paraesophageal hernia with multiple metallic objects present s/p succe ssful removal. s/p upper GI series on 03/31- no leak from stomach, ?retained foreign bodies x 2. KUB 04/01, again shows button-like foreign bodies and a total of 4 foreign bodies-it seems these are new in the last 2 days compared to previous imaging on 03/28-suspicion that he ingested further foreign body since the last EGD clear liquid diet started by surgery. KUB 04/02 now with 10 FBs mostly in large bowel-I do not suspect new FBs ingested in the last day but likely just some of these were bunched together on previous xray or obscured by contrast from previous UGI study Healing well post-op from ex lap -adv diet to low fiber -add on Miralax scheduled daily to facilitate passage of FBs -daily KUBs ordered -HEAVY METAL SCREEN drawn and pending DUE TO NUMEROUS INGESTIONS OF VARIOUS METAL OBJECTS WHICH PUTS HIM AT RISK OF TOXICITY. -The assisted has dictated that the patient now remain in three-point restraints, he has a spit mask in place, and they have asked for soft mitts to be placed on both hands to prevent him from continuing to ingest more foreign bodies. (2) Self-harming behavior: Plan: history of such - numerous occasions with various objects, often by way of ingestion. Unclear if this is due to psychiatric condition or malingering No foreign material, detachable material, small pieces/parts should be in arms raised with patient at any time. This includes drawstrings to close/waistbands, EKG stickers, and any loose material. Patient has a recurrent history of quickly ingesting or placing foreign materials into orifices. (3) Foreign body in urethra: Plan: Foreign body in urethra - 03/25 and 03/27 - removal on 2 occasions by [facility] in the OR via cystoscopy- Appreciate urology consultation He then poked a hole in his Hernandez catheter and deflated the balloon and pulled it out himself overnight on 03/31 No evidence of trauma to the penis on exam on 04/01 Continue ceftriaxone 1 g IV daily empirically x 5 days recent urine cx negative Had urinary retention of 1000mL on bladder scan on 04/02 AM and unsuccessful attempt at Hernandez placemetn as per RN-then pt voided large amount on own without difficulty-question if he is malingering with regards to retention but certainly could have reason to have retention due to multiple FB insertions, inflammation, stricture, etc. Pelvic xray 04/02 no radio-opaque FB -ordered bladder scan scheduled qshift -straight cath prn PVR>500mL -Again, taking precautions as above to avoid recurrent placement of foreign body in the urethra (4) Schizophrenia: Plan: Cont lithium BID - level nontoxic range this am. Increased haldol dose of 10mg HS has resolved the hearing of voices. Cont paxil. Cont remeron. Guards remain at bedside (5) Depression: Plan: meds as above (6) Anxiety: Plan: meds as above (7) Microcytic anemia: Plan: Fe studies wnl could have thalassemia could have high lead levels HEAVY METAL SCREEN PENDING repeat cbc am (8) DVT prophylaxis: Plan: lovenox daily (9) Bilateral calf pain: Plan: could be 2nd to low magnesium- replaced with IV magnesium and had improvement Lower extremity Dopplers negative for DVT (10) Hypokalemia: Plan: resolved, will dc fluids now that on reg diet Plan Disposition-assisted physician requested that he stay in the hospital until all foreign bodies have passed Admission and Anticipated Discharge Date Admission Date: March 29, 2022 Subjective Pt had urinary retention overnight and bladder scan was for >999mL. Straight cath was attempted but unsuccessful-RN notes it felt like patient was trying to push out as she attempted insertion of catheter. Pt later then voided a large amount on his own. He reports some abd pain at site of surgery. He tolerated low fiber food for lunch. No BM today. Review of Systems Review of Systems: All systems reviewed & are unremarkable except as noted in HPI & below Physical Exam Physical Exam: gen - NAD, lying comfortably in bed mouth - mmm neck - no JVD heart - RRR, s1 s2, no murmur lungs - CTA b/l abd - BS+, NT, abd wall incision clean, soft, ND ext - no edema psych - not responding to internal stimuli, awake, alert, normal conversational speech, flat affect Results & Data Results & Data ([facility]) Vital Signs (Past 12 Hours) Vital Signs Pulse Resp Pulse Ox O2 Del Method 04/02/22 07:25 88 16 98 Room Air Laboratory Results 04/02/22 04/02/22 Range/Units 05:59 05:59 WBC 4.04 L (4.8-10.8) K/ul RBC 5.13 (4.63-6.08) M/uL Hgb 12.4 L (14.0-18.0) g/dl Hct 39.8 L (40.1-51.0) % MCV 77.6 L (80.0-100.0) fL MCH 24.2 L (25.0-34.0) pg MCHC 31.2 L (32.0-36.0) g/dL RDW Std Deviation 38.2 (36.4-46.3) fL RDW Coeff of Bassem 13.5 (11.5-14.5) % Plt Count 252 (130-400) K/uL MPV 10.5 (9.4-12.4) fL Immature Gran % (Auto) 0.2 % Neut % (Auto) 59.2 % Lymph % (Auto) 24.8 % [place] % (Auto) 10.9 % Eos % (Auto) 4.7 % Baso % (Auto) 0.2 % Neut # (Auto) 2.39 (1.4-6.5) K/uL Lymph # (Auto) 1.00 L (1.2-3.4) K/uL [place] # (Auto) 0.44 (0.24-0.82) K/uL Eos # (Auto) 0.19 (0-0.50) K/uL Baso # (Auto) 0.01 (0-0.2) K/uL Immature Gran # (Auto) 0.01 (0.00-0.02) K/uL Sodium 139 (136-145) mmol/L Potassium 3.9 (3.5-5.1) mmol/L Chloride 103 (98-107) mmol/L Carbon Dioxide 30 (21-32) mmol/L Anion Gap 6 (3-11) BUN 6 (6-23) mg/dl Creatinine 1.22 (0.6-1.4) mg/dl Est Cr Clr Drug Dosing 107.3 ml/min Est GFR ( Amer) 96.9 ml/min Est GFR (Non-Af Amer) 83.6 ml/min BUN/Creatinine Ratio 4.9 L (10-20) Glucose 96 (70-99(Fasting)) mg/dl Calcium 9.6 (8.5-10.1) mg/dl Magnesium 1.9 (1.7-2.4) mg/dl Total Bilirubin 0.2 (0.2-1.0) mg/dl AST 16 (13-39) U/L ALT 17 (7-52) U/L Alkaline Phosphatase 60 (34-104) U/L Total Protein 7.4 (6.0-8.3) gm/dl Albumin 4.1 (3.4-5.0) gm/dl Globulin 3.3 (2.5-4.0) gm/dl Albumin/Globulin Ratio 1.2 (0.9-2) Diagnostic Findings KUB and pelvic xray images personally reviewed by me and agree with [facility] Pelvis X-Ray 04/02/22 06:55 SERIAL VIEW PELVIS CLINICAL HISTORY: Possible foreign body within the penis. FINDINGS: An AP, portable, supine view of the hips and lower pelvis is correlated with pelvic CT dated 03/24/2022. The skeletal structures are well mineralized. No fracture is identified. The joint spaces of the hips are tone ntained. There is residual enteric contrast within the rectosigmoid colon. No radiodense foreign body projects over the penis. IMPRESSION: No radiodense foreign body is seen projecting over the penis. Clinical correlation will be required. Electronically signed by: Henrique Slaughter M.D. 04/02/2022 7:33 AM KUB X-Ray 04/02/22 08:00 KUB HISTORY: Follow up study in a patient with foreign body ingestion f/u foreign bodies COMPARISON: KUB 04/01/2022 FINDINGS: Bowel gas pattern is nonobstructive. Retained enteric contrast within the large bowel. There is a total of approximately 10 radiopaque foreign bodies projected over the abdomen, most of which are likely within the large bowel. 7 mm mid abdominal foreign body at the level of L3 is likely within a loop of small bowel. Several foci have slightly progressed through the large bowel. Surgical suture material within the abdominal left upper quadrant. No renal calculi. No ureteral calculi. No pneumoperitoneum or pneumatosis. No fracture. IMPRESSION: 1. Nonobstructive bowel gas pattern. No pneumoperitoneum. 2. Numerous radiopaque foreign bodies redemonstrated as above. 3. Residual enteric contrast within the large bowel. ACT 112: Negative or not required by law. The above report was generated using voice recognition software. It may contain grammatical, syntax or spelling errors. Electronically signed by: Bernardino Rome M.D. 04/02/2022 8:09 AM oral report: PG Care Time/CCT Total # of Minutes Spent Total Time Spent with Patient: Total time spent is greater than 50% in coordination of care (as documented) at patient's floor/unit and/or counseling patient: Coding Level of Care Code 69125 Subseq Hosp Care Lvl 2 Diagnoses Foreign body in stomach T18.2XXA Self-harming behavior Foreign body in urethra T19.0XXA Schizophrenia F20.0 Schizophrenia type: paranoid schizophrenia Depression F32.A Depression Type: unspecified Anxiety F41.9 Microcytic anemia D50.9 DVT prophylaxis Z29.9 Bilateral calf pain M79.661; M79.662 Hypokalemia E87.6 (1) Schizophrenia Schizophrenia type: paranoid schizophrenia Qualified Code(s): F20.0 - Paranoid schizophrenia (2) Depression Depression Type: unspecified Qualified Code(s): F32.A - Depression, unspecified
[2022-04-02] MEDS ORDERED: oxyCODONE HCL IR 5 MG TAB (IMMEDIATE RELEASE) PO PRN (15:17)
[2022-04-02] MEDS ORDERED: MoRPHine SULFATE 2 MG/ML CARP IV PRN ×2 (15:17→21:27)
[2022-04-02] MEDS ORDERED: ACETAMINOPHEN 500 MG TAB PO PRN (15:34)
--- NOTE | 2022-04-02 16:50 | Surgery Progress Note ---
Date of Service April 02, 2022 Assessment & Plan (1) Foreign body in stomach: Plan POD#6 s/p ex lap and gastrotomy/removal of foreign objects; POD#4 s/p EGD. will discuss "metallic object" with hospitalist; x ray diet as tolerated continue to monitor DVT prophylaxis with SCDs/enoxaparin aggressive pulmonary toilet Admission and Anticipated Discharge Date Admission Date: March 29, 2022 Subjective states he "threw up" and "can feel a metallic object in the back of his throat" denies abdominal pain. has been tolerating diet. was just taken off morphine this afternoon. Physical Exam Physical Exam: Abdomen soft, mild TTP; no guarding; incision healing well, C/D/I with dermabond Results & Data ([facility]) Vital Signs (Past 12 Hours) Vital Signs Temp Pulse Pulse Resp BP Pulse Ox O2 Del Method 04/02/22 15:03 36.5 C 87 16 119/72 98 Room Air 04/02/22 07:25 88 16 98 Room Air
--- NOTE | 2022-04-02 17:46 | XRay Report ---
XR soft tissue neck CLINICAL HISTORY: assess for foreign body in throat COMPARISON STUDY: None. FINDINGS: There is a curvilinear metallic foreign body within the upper hypopharynx near the left neil lecula. This measures approximately 3 cm in length. No additional radiopaque foreign bodies identifie d. The trachea is patent. Prevertebral soft tissues are intact. IMPRESSION: A curvilinear metallic foreign body within the upper hypopharynx near the left vallecula . ACT 112: Negative or not required by law. Electronically signed by: Richard Aburto M.D. 04/02/2022 5:44 PM
[2022-04-02 18:54] LABS: Arsenic Blood <3 mcg/L (<23); Lead Blood <1.0 mcg/dL (<3.5); Mercury, blood <4 mcg/L (<=10)
--- NOTE | 2022-04-02 19:28 | Critical Care Consultation ---
Date of Consultation April 02, 2022 Assessment & Plan (1) Foreign body in stomach: (2) Self-harming behavior: (3) Foreign body in urethra: (4) Schizophrenia: (5) Depression: (6) Anxiety: (7) Microcytic anemia: (8) DVT prophylaxis: (9) Bilateral calf pain: (10) Hypokalemia: Plan Reason Critically Ill: 22 YOM prisoner with multiple admissions for foreign object ingestion and placement into urethra. Admitted to ICU for airway monitoring with foreign body aspiration to hypopharynx. Patient is HD #7 and POD #6 from gastrostomy with foreign body removals, POD #6 from cystoscopy with foreign body removal, S/P EGD with foreign body removal 03/28 Neuro - Self Harming behavior, schizophrenia, anxiety, depression, HX of SI, acute pain - Patient will be NPO so will convert his PO Haldol (10mg HS) to IM as well as with PRN Haldol in place - Continue Remeron as this is SoluTab - [place] likely be able to be restarted in AM following procedure or when able to take PO - [place] level 03/30/22- 0.4 - Heavy metal screening has been ordered by primary service for multiple hx of ingestion of such objects - Medical restraints will be employed to prevent removal or tampering of medical devices soft mits to prevent grabbing objects to ingest. - He is with group home cuffs and shackles to 3 extremities as well as face carmine guard and spit guard - Psych has seen in past - Pain from surgical procedures to abdomen- IV Tylenol, and IV Morphine if needed Cardiac - No acute needs - Follow electrolytes - Follow Qt with Haldol - Telemetry leads place to back out of patient reach Respiratory - Foreign body in hypopharynx - A 3 cm linear metallic foreign body at the expected location of the vallecula. This is unchanged in position. - Airway watch for migration, perforation, obstruction - ENT airway controller Dr. ORANTES- aware - plan for removal in AM unless it migrates - Pulmonary Critical Care - bronchoscopy if moves into the airway GI - S/P gastrostomy and EGD for foreign body removal, foreign bodies remaining - Daily KUB following objects - Objects in stomach and throughout intestines - 2 linear metallic foreign bodies within the stomach. - Numerous radiopaque foreign bodies remonstrated RENAL/LYTES - No acute needs As above follow electrolytes - Urinary retention, self removal of catheter - reportedly unable to catheterize patient secondary to resistance - Urology following - recommendations for Ruiz until discharge with voiding trial prior to discharge - bladder scan on arrival 381- unable to void reported - lidocaine urojet and re-attempt Ruiz ENDO - No acute needs - Glucose goal <180mg/dl HEME - Microcytic anemia Follow CBC and HGB - Hold DVT prophy Lovenox for interventions - Defer to Medicine ID -No acute needs LINES/IV ACCESS - - PIV - Ruiz Continue use of these lines DVT PROPHYLAXIS - SCDS Lovenox on hold 04/02/22- daily DISPO- ICU for airway monitoring I have personally spent 35 minutes of critical care time in the direct management of this patient. This is a life/limb threatening event. This includes time spent evaluating patient, direct bedside care, chart review, placing orders, interpretation of diagnostic studies, discussion with consultants, patient, and family members, as well as other required patient management activities. This time is exclusive of all separately billable procedures and is separate from and in addition to any other critical care service time. Thank you for allowing us to participate in the care of this patient. Please refer to my attending physician's documentation for any further recommendations. History of Present Illness Reason for Consultation: Airway watch for foreign object located in the hypopharynx Requesting Physician: Enid Jones MD Attending Physician: Enid Jones MD History of Present Illness 22 YOM Who is HD #9 for multiple foreign body ingestions and foreign body insertion into urethra. He is POD # 6 from gastrostomy and POD # 6 from cystoscopy. Urethral cystoscopy performed 03/25 and 03/27 for removal of urethral objects, he as well self removed ruiz catheter and multiple failed attempts to replace noted. Patient has underwent EGD to remove foreign bodies 03/26, this was complicated as it was unable to be removed through the esophageal sphincter- he then underwent a gastrostomy with foreign body removal by General Surgery. Patient had repeat EGD on 03/28 which also remained with multiple objects that were removed. He remains with multiple objects throughout intestines and being followed with daily KUB. Hospitalist service was notified later in the evening that patient had episode of vomiting and then felt something poking him in the back of his throat. He proceeded to eat dinner. He had imaging of neck, chest and KUB performed prior to him eating. This revealed an object in his hypopharynx just below the angle of the mandible. Imaging was repeated following him eating and no migration of foreign object noted. ENT was consulted by primary service- NPO now and will prepare for removal in the morning as he just ate. Transfer to ICU for airway monitoring, if situation would change this would then become emergent. He remains with 3 limb shackles from group home, face mesh guad and spit guard in place. Allergies Allergy/AdvReac Type Severity Reaction Status Date / Time No Known Allergies Allergy Verified 03/25/22 00:50 Home Medications Medication Instructions Recorded Confirmed Type haloperidol 10 mg tablet 10 mg PO HS 03/25/22 03/25/22 History haloperidol 5 mg tablet 5 mg PO HS 03/25/22 03/25/22 History lithium carbonate 300 mg capsule 300 mg PO BID 03/25/22 03/25/22 History mirtazapine 45 mg tablet 45 mg PO HS 03/25/22 03/25/22 History paroxetine HCl 10 mg tablet 10 mg PO HS 03/25/22 03/25/22 History paroxetine HCl 20 mg tablet 20 mg PO HS 03/25/22 03/25/22 History polyethylene glycol 3350 17 gram 17 g PO BID 03/25/22 03/25/22 History oral powder packet (Miralax) Patient History Medical History Anxiety Depression Foreign body in urethra H/O swallowed foreign body Schizophrenia Suicidal ideation Surgical History H/O cystoscopy H/O esophagogastroduodenoscopy H/O exploratory laparotomy Social History Smoking Status: Never smoker Tobacco Type: Cigarettes Second Hand Exposure: No; Do You Dip or Chew Tobacco: No; Tobacco Cessation Education Requested by Patient: No Hx Alcohol Use: No Hx Substance Use: No Preferred Language: Turkish Communication Ability: Effective Clock Smith Required: No Beliefs That Will Affect Care: None marital status: Single Current Living Situation: Other Current Living Situation Comment: [facility]. How many Children do You have: 0 Other Information That Helps Us Care for You: No Feels Safe at Home: Yes Safety Concerns: Feels Safe At This Time Assistive Devices: None Review of Systems Review of Systems: REVIEW OF SYSTEMS: Constitutional: No fever, sweats or chills Eyes: No diplopia, no worsening or blurred vision ENT: (+) pain swallowing, throat pain, normal hearing, Respiratory: No cough, sputum, dyspnea at rest or on exertion Cardiovascular: No chest pain, tightness or palpitations Abdomen: No pain, nausea, vomiting, diarrhea or constipation Musculoskeletal: No joint pain, calf pain, swelling Neurologic: No weakness, numbness/tingling, or balance problems Psychiatric: (+) history anxiety or depression Physical Exam Physical Exam: PHYSICAL EXAM: General: awake, alert, calm and cooperative at this time no apparent distress Head: Normocephalic, atraumatic ENT: PERRL, EOMI, throat soft, trachea midline, no subcutaneous air noted with palpation, voice is normal Neuro: AAO x 3, speech clear and appropriate, strength intact bilaterally 5/5, sensation intact and equal all extremities and dermatomes Chest: equal rise and fall of the chest, no accessory muscle use, no heaves or thrills, Clear to auscultation, on room air, no subcutaneous air noted with palpation of chest wall Cardiac: Regular rate and rhythm, telemetry reviewed, skin warm dry, cap refill <3 seconds, peripheral pulses +2, no murmur, no edema GI: NABS x 4 quadrants, soft, midline incision intact with no drainage, pain at just incision site and with vomitting : Spontaneously voiding, no pain but noted difficulty per patient Extremities: Normal inspection, no peripheral edema or erythema, calfs nontender to palpation Psych: calm currently Results & Data Results & Data ([facility]) Vital Signs (Past 12 Hours) Vital Signs Temp Pulse Resp BP Pulse Ox O2 Del Method 04/02/22 15:03 36.5 C 87 16 119/72 98 Room Air Laboratory Results Abnormal lab results 04/02/22 04/02/22 Range/Units 05:59 05:59 WBC 4.04 L (4.8-10.8) K/ul Hgb 12.4 L (14.0-18.0) g/dl Hct 39.8 L (40.1-51.0) % MCV 77.6 L (80.0-100.0) fL MCH 24.2 L (25.0-34.0) pg MCHC 31.2 L (32.0-36.0) g/dL Lymph # (Auto) 1.00 L (1.2-3.4) K/uL BUN/Creatinine Ratio 4.9 L (10-20) Diagnostic Findings Pelvis X-Ray 04/02/22 06:55 SERIAL VIEW PELVIS CLINICAL HISTORY: Possible foreign body within the penis. FINDINGS: An AP, portable, supine view of the hips and lower pelvis is correlated with pelvic CT dated 03/24/2022. The skeletal structures are well mineralized. No fracture is identified. The joint spaces of the hips are maintained. There is residual enteric contrast within the rectosigmoid colon. No radiodense foreign body projects over the penis. IMPRESSION: No radiodense foreign body is seen projecting over the penis. Clinical correlation will be required. Electronically signed by: Henrique Slaughter M.D. 04/02/2022 7:33 AM KUB X-Ray 04/02/22 08:00 KUB HISTORY: Follow up study in a patient with foreign body ingestion f/u foreign bodies COMPARISON: KUB 04/01/2022 FINDINGS: Bowel gas pattern is nonobstructive. Retained enteric contrast within the large bowel. There is a total of approximately 10 radiopaque foreign bodies projected over the abdomen, most of which are likely within the large bowel. 7 mm mid abdominal foreign body at the level of L3 is likely within a loop of small bowel. Several foci have slightly progressed through the large bowel. Surgical suture material within the abdominal left upper quadrant. No renal calculi. No ureteral calculi. No pneumoperitoneum or pneumatosis. No fracture. IMPRESSION: 1. Nonobstructive bowel gas pattern. No pneumoperitoneum. 2. Numerous radiopaque foreign bodies redemonstrated as above. 3. Residual enteric contrast within the large bowel. ACT 112: Negative or not required by law. The above report was generated using voice recognition software. It may contain grammatical, syntax or spelling errors. Electronically signed by: Bernardino Rome M.D. 04/02/2022 8:09 AM Soft Tissue Neck X-Ray 04/02/22 17:02 XR soft tissue neck CLINICAL HISTORY: assess for foreign body in throat COMPARISON STUDY: None. FINDINGS: There is a curvilinear metallic foreign body within the upper hypopharynx near the left vallecula. This measures approximately 3 cm in length. No additional radiopaque foreign bodies identified. The trachea is patent. Prevertebral soft tissues are intact. IMPRESSION: A curvilinear metallic foreign body within the upper hypopharynx near the left vallecula. ACT 112: Negative or not required by law. Electronically signed by: Richard Aburto M.D. 04/02/2022 5:44 PM Chest X-Ray 04/02/22 18:06 XR chest 1V portable HISTORY: assess for foreign body in esophagus COMPARISON: Chest 02/07/2022. FINDINGS: No pneumothorax. No pleural effusions. The lungs are clear. The heart is normal in size. No radiopaque foreign bodies overlying the esophagus. There are 2 linear metallic foreign bodies within the stomach with the largest measuring 5.2 cm. IMPRESSION: There are 2 linear metallic foreign bodies within the stomach. ACT 112: Negative or not required by law. Electronically signed by: Richard Aburto M.D. 04/02/2022 7:42 PM Soft Tissue Neck X-Ray 04/02/22 18:22 XR soft tissue neck CLINICAL HISTORY: reassess foreign body throat COMPARISON STUDY: Neck radiograph 04/02/2022. FINDINGS: There is again noted a linear metallic foreign body within the expected location of the vallecula measuring 3 cm. This is unchanged in position compared to the prior study. Prevertebral soft tissues and the epiglottis are normal in thickness. The trachea is midline and patent. IMPRESSION: A 3 cm linear metallic foreign body at the expected location of the vallecula. This is unchanged in position. ACT 112: Negative or not required by law. Electronically signed by: Richard Aburto M.D. 04/02/2022 7:43 PM Coding Level of Care Code Critical Care 1st 30-74 mins Diagnoses Foreign body in stomach T18.2XXA Self-harming behavior Foreign body in urethra T19.0XXA Schizophrenia F20.0 Schizophrenia type: paranoid schizophrenia Depression F32.A Depression Type: unspecified Anxiety F41.9 Microcytic anemia D50.9 DVT prophylaxis Z29.9 Bilateral calf pain M79.661; M79.662 Hypokalemia E87.6 (1) Depression Depression Type: unspecified Qualified Code(s): F32.A - Depression, unspecified (2) Schizophrenia Schizophrenia type: paranoid schizophrenia Qualified Code(s): F20.0 - Paranoid schizophrenia
--- NOTE | 2022-04-02 19:43 | XRay Report ---
XR chest 1V portable HISTORY: assess for foreign body in esophagus COMPARISON: Chest 02/07/2022. FINDINGS: No pneumothorax. No pleural effusions. The lungs are clear. The heart is normal in size. No radiopaque foreign bodies overlying the esophagus. There are 2 linear metallic foreign bodies within the stomach with the largest measuring 5.2 cm. IMPRESSION: There are 2 linear metallic foreign bodies within the stomach. ACT 112: Negative or not required by law. Electronically signed by: Richard Aburto M.D. 04/02/2022 7:42 PM
--- NOTE | 2022-04-02 19:44 | XRay Report ---
XR soft tissue neck CLINICAL HISTORY: reassess foreign body throat COMPARISON STUDY: Neck radiograph 04/02/2022. FINDINGS: There is again noted a linear metallic foreign body within the expected location of the neil lecula measuring 3 cm. This is unchanged in position compared to the prior study. Prevertebral soft t issues and the epiglottis are normal in thickness. The trachea is midline and patent. IMPRESSION: A 3 cm linear metallic foreign body at the expected location of the vallecula. This is u nchanged in position. ACT 112: Negative or not required by law. Electronically signed by: Richard Aburto M.D. 04/02/2022 7:43 PM
[2022-04-02] MEDS: ONDANSETRON INJ 2 MG/ML 2 ML VIAL IV PRN (19:52)
[2022-04-02] MEDS ORDERED: HALOPERIDOL LACTATE 5 MG/ML 1 ML VIAL IM ONE (21:26)
[2022-04-02] MEDS ORDERED: ACETAMINOPHEN 1,000 MG/100 ML VIAL IV PRN (21:27)
[2022-04-02] MEDS: haloperidoL 5 MG TAB PO SCH (21:46)
[2022-04-02] MEDS ORDERED: LIDOCAINE 2% JELLY 5 ML TUBE EXT ONE (21:47)
[2022-04-02] MEDS: PARoxetine HCL 20 MG TAB PO SCH (21:47)
[2022-04-02] MEDS: MIRTAZAPINE SOLTAB 15 MG PO SCH (21:58)
[2022-04-03] MEDS ORDERED: LIDOCAINE 2% MPF LOCAL 5 ML VIAL INFIL ONE (06:15)
[2022-04-03] MEDS ORDERED: PROPOFOL IV EMULSION 10 MG/ML 20 ML VIAL IV ONE (06:15)
[2022-04-03] MEDS ORDERED: fentaNYL citrate 100 MCG/2 ML VIAL ONE (06:15)
--- NOTE | 2022-04-03 06:16 | ENT Consultation ---
Date of Consultation April 03, 2022 Assessment & Plan (1) Foreign body ingestion: For direct laryngoscopy and esophagoscopy with removal of foreign body History of Present Illness Reason for Consultation: Foreign body esophagus Attending Physician: Enid Jones MD History of Present Illness 22-year-old swallowed like a piece of wire into the stomach. Episode of emesis which moved foreign body into cervical esophagus or hypopharynx. Had just eaten a full meal last evening. With risk of aspiration he was observed in ICU and will now undergo direct laryngoscopy and esophagoscopy for removal of foreign body Allergies Allergy/AdvReac Type Severity Reaction Status Date / Time No Known Allergies Allergy Verified 03/25/22 00:50 Home Medications Medication Instructions Recorded Confirmed Type haloperidol 10 mg tablet 10 mg PO HS 03/25/22 03/25/22 History haloperidol 5 mg tablet 5 mg PO HS 03/25/22 03/25/22 History lithium carbonate 300 mg capsule 300 mg PO BID 03/25/22 03/25/22 History mirtazapine 45 mg tablet 45 mg PO HS 03/25/22 03/25/22 History paroxetine HCl 10 mg tablet 10 mg PO HS 03/25/22 03/25/22 History paroxetine HCl 20 mg tablet 20 mg PO HS 03/25/22 03/25/22 History polyethylene glycol 3350 17 gram 17 g PO BID 03/25/22 03/25/22 History oral powder packet (Miralax) Patient History Medical History Anxiety Depression Foreign body in urethra H/O swallowed foreign body Schizophrenia Suicidal ideation Surgical History H/O cystoscopy H/O esophagogastroduodenoscopy H/O exploratory laparotomy Social History Smoking Status: Never smoker Tobacco Type: Cigarettes Second Hand Exposure: No; Do You Dip or Chew Tobacco: No; Tobacco Cessation Education Requested by Patient: No Hx Alcohol Use: No Hx Substance Use: No Preferred Language: Turkish Communication Ability: Effective Roving Changer Required: No Beliefs That Will Affect Care: None marital status: Single Current Living Situation: Other Current Living Situation Comment: [facility]. How many Children do You have: 0 Other Information That Helps Us Care for You: No Feels Safe at Home: Yes Safety Concerns: Feels Safe At This Time Assistive Devices: None Physical Exam Constitutional: WD/WN, vitals as above Eyes: PERRL, conjunctivae normal, anicteric sclerae ENMT: external ear and nose normal, oropharynx normal Neck: trachea midline, no thyromegaly Results & Data ([facility]) Vital Signs (Past 12 Hours) Vital Signs Temp Pulse Resp BP Pulse Ox Pulse Ox O2 Del Method 04/03/22 04:00 74 15 97 04/03/22 04:00 36.7 C 110/58 L 04/03/22 03:00 66 14 117/69 98 Room Air 04/03/22 02:00 79 15 106/62 95 Room Air 04/03/22 00:00 82 04/02/22 22:00 80 04/03/22 01:00 74 15 114/66 97 04/03/22 00:00 36.5 C 81 15 111/65 97 04/03/22 01:00 98 04/02/22 23:00 89 16 98/58 L 95 Room Air 04/02/22 22:30 82 14 95 04/02/22 22:24 77 12 108/63 98 04/02/22 22:00 107 H 98 04/02/22 21:30 83 15 98 04/02/22 21:25 37.1 C 14 119/84 99 Room Air 04/02/22 21:00 Room Air O2 Del Method 04/03/22 04:00 04/03/22 04:00 04/03/22 03:00 04/03/22 02:00 04/03/22 00:00 04/02/22 22:00 04/03/22 01:00 04/03/22 00:00 04/03/22 01:00 Room Air 04/02/22 23:00 04/02/22 22:30 04/02/22 22:24 04/02/22 22:00 04/02/22 21:30 04/02/22 21:25 04/02/22 21:00
[2022-04-03 06:18] LABS: Basophils # (auto) 0.01 K/uL (0-0.2); Basophils % (auto) 0.2 %; Eosinophils # (auto) 0.21 K/uL (0-0.50); Eosinophils % (auto) 3.6 %; Hematocrit (blood only) 41.6 % (40.1-51.0); Immature Granulocytes # (auto) 0.01 K/uL (0.00-0.02); Immature Granulocytes % (auto) 0.2 %; Lymphocytes # (auto) 1.17 K/uL (1.2-3.4); Mean Corpuscular Hemoglobin 24.4 pg (25.0-34.0); Mean Corpuscular Hgb Conc 31.3 g/dL (32.0-36.0); Mean Platelet Volume 9.8 fL (9.4-12.4); Monocytes # (auto) 0.55 K/uL (0.24-0.82); Monocytes % (auto) 9.4 %; Neutrophils % (auto) 66.6 %; Platelet Count 257 K/uL (130-400); RDW Coefficient of Variation 13.4 % (11.5-14.5); RDW Standard Deviation 38.2 fL (36.4-46.3); Red Blood Count 5.33 M/uL (4.63-6.08); White Blood Count 5.85 K/ul (4.8-10.8)
--- NOTE | 2022-04-03 06:53 | Anesthesiology Consultation ---
Date of Service April 03, 2022 Assessment & Plan Chart Review Chart Review: Acceptable Risk for Surgery Consults Requested none History Surgery Operation Date: 03/25/22 00:15 Proposed Procedures p Cystoscopy - José Luis Burton DO Operation Date: 03/25/22 10:35 Proposed Procedures p Esophagogastroduodenoscopy - Henri Anderson Jr, MD Operation Date: 03/26/22 09:40 Proposed Procedures p Esophagogastroduodenoscopy Foreign Body Removal - Henri Anderson Jr, MD Operation Date: 03/27/22 14:10 Proposed Procedures p Exploratory Laparotomy, Gastrotomy Removal of Foreign Body - José Luis Paiz MD s Cystoscopy - Anton Randall MD Operation Date: 03/28/22 10:05 Proposed Procedures p Esophagogastroduodenoscopy - Aki Duval MD s Possible Laparotomy Gastrostomy Removal - José Luis Paiz MD Operation Date: 04/03/22 07:00 Proposed Procedures s Esophagoscopy - Tonja Orantes MD p Endoscopic Foreign Body Removal - Tonja Orantes MD Height/Weight Height: 5 ft 10 in Weight: 82.5 kg Allergies Allergy/AdvReac Type Severity Reaction Status Date / Time No Known Allergies Allergy Verified 03/25/22 00:50 Medications Home Medications Medication Instructions Recorded Confirmed Last Taken haloperidol 10 mg tablet 10 mg PO HS 03/25/22 03/25/22 03/23/22 haloperidol 5 mg tablet 5 mg PO HS 03/25/22 03/25/22 03/23/22 lithium carbonate 300 mg capsule 300 mg PO BID 03/25/22 03/25/22 03/24/22 06:30 mirtazapine 45 mg tablet 45 mg PO HS 03/25/22 03/25/22 03/23/22 paroxetine HCl 10 mg tablet 10 mg PO HS 03/25/22 03/25/22 03/23/22 paroxetine HCl 20 mg tablet 20 mg PO 03/25/22 03/25/22 03/23/22 polyethylene glycol 3350 17 gram 17 g PO BID 03/25/22 03/25/22 03/24/22 06:30 oral powder packet (Miralax) Active Medications Generic Name Dose Route Start Last Admin Trade Name Freq PRN Reason Stop Dose Admin Haloperidol 10 mg 03/29/22 21:00 04/02/22 21:46 Haloperidol 5 Mg Tab PO 04/28/22 20:59 Not Given HS WAYNE [place] Carbonate 300 mg 03/26/22 21:00 04/02/22 21:46 [place] Carbonate 300 Mg Tab PO 04/25/22 20:59 Not Given BID WAYNE Mirtazapine 45 mg 03/27/22 21:00 04/02/22 21:58 Mirtazapine Soltab 15 Mg PO 04/26/22 20:59 45 mg HS WAYNE Administration Protocol Ondansetron HCl 4 mg 03/28/22 13:40 04/02/22 19:52 Ondansetron Inj 2 Mg/Ml 2 Ml Vial IV 04/27/22 13:39 4 mg Q6H PRN Administration Nausea And Vomiting Paroxetine HCl 30 mg 03/25/22 02:45 04/02/22 21:47 Paroxetine Hcl 20 Mg Tab PO 04/24/22 02:44 Not Given HS WAYNE Polyethylene Glycol 17 gm 04/02/22 21:00 04/02/22 21:47 Polyethylene (Miralax) 17 Gm Pack PO 05/02/22 20:59 Not Given BID WAYNE NPO Date Last Intake of Fluids: 04/02/22 Time Last Intake of Fluids: 17:00 Date Last Intake of Solids: 04/02/22 Time Last Intake of Solids: 17:00 Past Medical History Medical History Anxiety Depression Foreign body in urethra H/O swallowed foreign body Schizophrenia Suicidal ideation Past Surgical History Surgical History H/O cystoscopy H/O esophagogastroduodenoscopy H/O exploratory laparotomy Social History Smoking Status: Never smoker tobacco type: cigarettes Do You Dip or Chew Tobacco: No Hx Alcohol Use: No Hx Substance Use: No substance use type: does not use Physical Exam Vital Signs Last Vital Signs Temp 36.7 C 04/03/22 04:00 Pulse 72 04/03/22 06:36 Resp 14 04/03/22 06:36 BP 118/65 04/03/22 06:36 Pulse Ox 99 04/03/22 06:36 O2 Del Method 04/03/22 06:36 O2 Flow Rate 3 03/28/22 12:15 Testing Laboratory Results 04/03/22 05:49 PT 11.1 Seconds (9.0-12.0) 03/24/22 20:48 INR 1.0 (0.9-1.1) 03/24/22 20:48 APTT 24.6 Seconds (21.0-31.0) 03/24/22 20:48 Urine Color Yellow 03/25/22 Unknown Urine Appearance Slightly Cloudy (Clear) A 03/25/22 Unknown Urine pH 8.0 (4.5-7.5) H 03/25/22 Unknown Ur Specific [place] > 1.045 (1.000-1.030) H 03/25/22 Unknown Urine Protein Negative (Negative) 03/25/22 Unknown Urine Glucose (UA) Negative (Negative) 03/25/22 Unknown Urine Ketones Negative (Negative) 03/25/22 Unknown Urine Nitrite Negative (Negative) 03/25/22 Unknown Ur Leukocyte Esterase 2+ (Negative) H 03/25/22 Unknown Urine WBC (Auto) >30 /hpf (0-5) H 03/25/22 Unknown Urine RBC (Auto) 0-4 /hpf (0-4) 03/25/22 Unknown U Hyaline Cast (Auto) 1-5 /lpf (0-5) 03/25/22 Unknown U Epithel Cells (Auto) 5-10 /lpf (0-5) H 03/25/22 Unknown Urine Bacteria (Auto) Negative (Negative) 03/25/22 Unknown 03/25/22 Unknown Urine Culture - Final Urine,Clean Catch Three types or organisms present, all moderate counts probable skin jerilyn. No further identifications or sensitivities to follow. 04/02/22 21:43 POC Glucose 98
[2022-04-03] MEDS ORDERED: fentaNYL citrate 100 MCG/2 ML VIAL IV PRN (06:56)
[2022-04-03] MEDS ORDERED: ONDANSETRON INJ 2 MG/ML 2 ML VIAL IV PRN (06:56)
[2022-04-03] MEDS ORDERED: ePHEDrine sulfate 50 MG/ML AMP IV PRN (06:56)
[2022-04-03] MEDS ORDERED: ATROPINE SULFATE 0.1 MG/ML 10ML SYR IV PRN (06:56)
[2022-04-03 06:58] LABS: BUN Creatinine Ratio 9.4 (10-20); Calcium 9.7 mg/dl (8.5-10.1); Creatinine Clr Calc Pharmacy 93.5 ml/min; Est GFR (African American) 91.5 ml/min; Est GFR (Non-African American) 78.9 ml/min; Magnesium 1.9 mg/dl (1.7-2.4)
[2022-04-03] MEDS ORDERED: SUCCINYLCHOLINE CHLORIDE 20 MG/ML 10 ML VIAL IV ONE (07:00)
--- NOTE | 2022-04-03 07:22 | XRay Report ---
XR chest 1V portable CLINICAL HISTORY: Evaluate for foreign body- preoperative do at 0400 COMPARISON STUDY: Chest radiograph April 02, 2022. Chest CT December 08, 2021. FINDINGS: No radiopaque foreign bodies are identified within the chest. 3 linear metallic foreign bod ies within the stomach are noted. These measure up to 5.4 cm in length. There is no pneumothorax or p leural effusion. There is no consolidation. Cardiac size is normal. IMPRESSION: 1. No acute cardiopulmonary findings. 2. No radiopaque foreign bodies within the chest. 3. 3 linear metallic foreign bodies within the stomach. ACT 112: Negative or not required by law. Electronically signed by: Layton Liu M.D. 04/03/2022 7:20 AM
--- NOTE | 2022-04-03 07:31 | XRay Report ---
KUB CLINICAL HISTORY: f/u foreign bodies COMPARISON STUDY: CT of the abdomen and pelvis March 24, 2022. KUB April 02, 2022. FINDINGS: Residual contrast within the colon and rectum is noted. There is no evidence for free air o n this supine exam. 3 linear metallic foreign bodies within the stomach are noted. There are multiple foreign bodies within the ascending colon. Several additional linear metallic foreign bodies may be within small or large bowel. These are within the mid and left abdomen. There is no evidence for a b owel obstruction. A few foreign bodies shown on prior exam are no longer visualized and have likely p assed. IMPRESSION: Multiple foreign bodies within the stomach and small and large bowel, as described above . ACT 112: Negative or not required by law. Electronically signed by: Layton Liu M.D. 04/03/2022 7:30 AM
--- NOTE | 2022-04-03 07:37 | Anesthesiology Progress Note ---
Date of Service April 03, 2022 Anesthesia Post Procedure Vital Signs Vital Signs: Temp Pulse Pulse Pulse Resp BP BP 04/03/22 06:36 72 14 118/65 04/03/22 06:00 72 14 118/65 04/03/22 05:00 76 12 122/67 04/03/22 04:00 74 15 04/03/22 04:00 36.7 C 110/58 L 04/03/22 03:00 66 14 117/69 04/03/22 02:00 79 15 106/62 04/03/22 00:00 82 04/02/22 22:00 80 04/03/22 01:00 74 15 114/66 04/03/22 00:00 36.5 C 81 15 111/65 04/03/22 01:00 04/02/22 23:00 89 16 98/58 L 04/02/22 22:30 82 14 04/02/22 22:24 77 12 108/63 04/02/22 22:00 107 H 04/02/22 21:30 83 15 04/02/22 21:25 37.1 C 14 119/84 04/02/22 21:00 04/02/22 15:03 36.5 C 87 16 119/72 Pulse Ox Pulse Ox O2 Del Method O2 Del Method 04/03/22 06:36 99 Room Air 04/03/22 06:00 99 Room Air 04/03/22 05:00 97 Room Air 04/03/22 04:00 97 04/03/22 04:00 04/03/22 03:00 98 Room Air 04/03/22 02:00 95 Room Air 04/03/22 00:00 04/02/22 22:00 04/03/22 01:00 97 04/03/22 00:00 97 04/03/22 01:00 98 Room Air 04/02/22 23:00 95 Room Air 04/02/22 22:30 95 04/02/22 22:24 98 04/02/22 22:00 98 04/02/22 21:30 98 04/02/22 21:25 99 Room Air 04/02/22 21:00 Room Air 04/02/22 15:03 98 Room Air Pain Intensity Abdomen: Pain Intensity: 10 Transfer of Care Handoff Completed per policy Notes Mental Status: alert / awake / arousable and participated in evaluation Patient Amnestic to Procedure: Yes Nausea / Vomiting: adequately controlled Pain: adequately controlled Airway Patency, RR, SpO2: stable & adequate BP & HR: stable & adequate Hydration State: stable & adequate Anesthetic Complications: no major complications apparent
--- NOTE | 2022-04-03 07:44 | XRay Report ---
XR soft tissue neck HISTORY: 22 years-old Male reassess foreign body in AM follow-up study in a patient with foreign bod y ingestion COMPARISON: Soft tissue neck radiographs 04/02/2022 TECHNIQUE: 3 views of the soft tissues of the neck FINDINGS: 3 cm linear metallic foreign body within the expected location of the vallecula is redemonstrated and has slightly moved posteriorly in the airway. Mild soft tissue swelling within the submandibular tis sues. Possible subcutaneous emphysema within the anterior neck. No prevertebral edema. IMPRESSION: 1. 3 mm linear metallic foreign body within the expected location of the vallecula has moved slightly posteriorly within the airway. 2. Possible subcutaneous emphysema of the anterior neck. ACT 112: Negative or not required by law. The above report was generated using voice recognition software. It may contain grammatical, syntax o r spelling errors. Electronically signed by: Bernardino Rome M.D. 04/03/2022 7:42 AM
--- NOTE | 2022-04-03 07:57 | Operative Report ---
PG Post Operative Report Pre & Post Diagnosis Operation Date: 03/25/22 00:15 Pre-Op Diagnosis: Foreign Body Post-Op Diagnosis: Foreign Body Operation Date: 03/25/22 10:35 <No data on this case meets the specified criteria> Operation Date: 03/26/22 09:40 Pre-Op Diagnosis: foreign body in stomach and penis Post-Op Diagnosis: foreign body in stomach and penis Operation Date: 03/27/22 14:10 Pre-Op Diagnosis: foreign body in stomach and penis Post-Op Diagnosis: foreign body in stomach and penis Operation Date: 03/28/22 10:05 Pre-Op Diagnosis: FB IN STOMACH AND PENIS Post-Op Diagnosis: foreign body removal in stomach Operation Date: 04/03/22 07:00 Pre-Op Diagnosis: Foreign body ingested Post-Op Diagnosis: Foreign body ingested, I identified the patient and participated in the time-out.: Yes Procedure Operation Date: 03/25/22 00:15 Actual Procedures p Cystoscopy, Removal of Foreign Body - José Luis Burton DO Operation Date: 03/25/22 10:35 <No data on this case meets the specified criteria> Operation Date: 03/26/22 09:40 Actual Procedures p Esophagogastroduodenoscopy - Henri Anderson Jr, MD Operation Date: 03/27/22 14:10 Actual Procedures p Exploratory Laparotomy, Gastrotomy Removal of Foreign Body(Not Applicable) - José Luis Paiz MD s Cystoscopy, removal of foreign body(Not Applicable) - Anton Randall MD Operation Date: 03/28/22 10:05 Actual Procedures p Esophagogastroduodenoscopy with foreign body removal - Aki Duval MD Operation Date: 04/03/22 07:00 Actual Procedures p Esophagoscopy, laryngoscopy with foreign body removal(Not Applicable) - Tonja Orantes MD Surgeon Tonja Orantes MD Parachute Line Tier ALEX Ochoa assisted with tissue retraction, camera op, closure Estimated Blood Loss 0 Findings See Below (Three metalic foreign body objects removed from the stomach) Foreign body hypopharynx, removed Specimens Metallic foreign body Anesthesia Type General Complications none None Disposition Disposition: Recovery Room Description of Procedure He was brought to the operating room, properly identified, prepped and draped in the usual sterile manner after general endotracheal anesthesia. Direct laryngoscopy was performed. The foreign body within the hypopharynx and was removed using Av forceps. The Dedo laryngoscope was used. The pharynx was further evaluated. No other foreign body seen. Puncture site posterior pharyngeal wall seen with no sign of infection. Rigid esophagoscopy was performed down to the cervical esophagus noting pink healthy esophageal mucosa with no other sign of foreign body. He tolerated procedure well was taken recovery area in satisfactory condition. I attest to the content of the Intraoperative Record and any orders documented therein. Any exceptions are noted below.
--- NOTE | 2022-04-03 08:23 | Critical Care Progress Note ---
Date of Service April 03, 2022 Assessment & Plan (1) Foreign body in stomach: (2) Self-harming behavior: (3) Foreign body in urethra: (4) Schizophrenia: (5) Depression: (6) Anxiety: (7) Microcytic anemia: (8) DVT prophylaxis: (9) Bilateral calf pain: (10) Hypokalemia: Plan Reason Critically Ill: 22 YOM prisoner with multiple admissions for foreign object ingestion and placement into urethra. Admitted to ICU for airway monitoring with foreign body aspiration to hypopharynx. Patient is HD #7 and POD #6 from gastrostomy with foreign body removals, POD #6 from cystoscopy with foreign body removal, S/P EGD with foreign body removal 03/28 Neuro - Self Harming behavior, schizophrenia, anxiety, depression, HX of SI, acute pain - Patient will be NPO so will convert his PO Haldol (10mg HS) to IM as well as with PRN Haldol in place - Continue Remeron as this is SoluTab - [place] likely be able to be restarted in AM following procedure or when able to take PO - [place] level 03/30/22- 0.4 - Heavy metal screening has been ordered by primary service for multiple hx of ingestion of such objects - Medical restraints will be employed to prevent removal or tampering of medical devices soft mits to prevent grabbing objects to ingest. - He is with mcc cuffs and shackles to 3 extremities as well as face carmine guard and spit guard - Psych has seen in past - Pain from surgical procedures to abdomen- IV Tylenol, and IV Morphine if need ed Cardiac - No acute needs - Follow electrolytes - Follow Qt with Haldol, QTC 424 on 04/02/2020 - Telemetry leads place to back out of patient reach Respiratory - Foreign body in hypopharynx --> s/p removal 04/03/[address] Orantes - A 3 cm linear metallic foreign body at the expected location of the vallecula. - Airway watch for migration, perforation, obstruction GI - S/P gastrostomy and EGD for foreign body removal, foreign bodies remaining - Daily KUB following objects - Objects in stomach and throughout intestines - 2 linear metallic foreign bodies within the stomach. - Numerous radiopaque foreign bodies remonstrated RENAL/LYTES - No acute needs As above follow electrolytes - Urinary retention, self removal of catheter - reportedly unable to catheterize patient secondary to resistance - Urology following - recommendations for Hernandez until discharge with voiding trial prior to discharge ENDO - No acute needs - Glucose goal <180mg/dl HEME - Microcytic anemia -Monitor H&H ID -No acute needs --Prophylaxis VTE: SCDs GI: None Lines: Peripheral Diet: N.p.o. Plan: In/out: +921, urine output 670 Patient is s/p removal of the foreign body. Hemodynamically stable. Continue with psych care as per primary team Okay to feed the patient once he is more alert as anesthesia weans off Patient okay to be downgraded to medical floor Can resume Lovenox once cleared by ENT Please note the above document was generated using voice recognition software. It may contain grammatical, syntax or spelling errors.Any formal questions or concerns about the content, text or information contained within the body of this dictation should be directly addressed to the provider for clarification. Admission and Anticipated Discharge Date Admission Date: March 29, 2022 Subjective Patient seen and examined at bedside. No acute distress, no adverse events overnight. Patient had mitts on as well as mass was covered He just came back from the OR status post removal of the foreign body from the hypopharynx Patient's blood pressure was systolic in the 110s. It was not complaining of any headache, no throat pain, no abdominal pain. No chest pain, no shortness of breath Review of Systems Review of Systems: All systems reviewed & are unremarkable except as noted in Subjective Physical Exam Physical Exam: Constitutional: No acute distress HEENT: EOMI, PERRLA Respiratory system: Good air entry bilaterally, no wheeze, no rhonchi, no crackles CVS: S1-S2 positive, no murmurs or gallops Abdomen: Soft, nontender, nondistended, positive bowel sounds x4, incision site clean Extremities: +2 pulses bilaterally radialis/ dorsalis pedis, no cyanosis, no edema Neuro: Awake alert oriented x3 Psych: Normal mood and affect G/U: Positive Hernandez Skin: no rashes, warm and dry Lymphatic: no cervical or axillary lymphadenopathy Results & Data Results & Data ([facility]) Vital Signs (Past 12 Hours) Vital Signs Temp Pulse Pulse Resp BP BP Pulse Ox 04/03/22 07:39 04/03/22 06:36 72 14 118/65 99 04/03/22 06:00 72 14 118/65 99 04/03/22 05:00 76 12 122/67 97 04/03/22 04:00 74 15 97 04/03/22 04:00 36.7 C 110/58 L 04/03/22 03:00 66 14 117/69 98 04/03/22 02:00 79 15 106/62 95 04/03/22 00:00 82 04/02/22 22:00 80 04/03/22 01:00 74 15 114/66 97 04/03/22 00:00 36.5 C 81 15 111/65 97 04/03/22 01:00 04/02/22 23:00 89 16 98/58 L 95 04/02/22 22:30 82 14 95 04/02/22 22:24 77 12 108/63 98 04/02/22 22:00 107 H 98 04/02/22 21:30 83 15 98 04/02/22 21:25 37.1 C 14 119/84 99 04/02/22 21:00 Pulse Ox O2 Del Method O2 Del Method 04/03/22 07:39 Room Air 04/03/22 06:36 Room Air 04/03/22 06:00 Room Air 04/03/22 05:00 Room Air 04/03/22 04:00 04/03/22 04:00 04/03/22 03:00 Room Air 04/03/22 02:00 Room Air 04/03/22 00:00 04/02/22 22:00 04/03/22 01:00 04/03/22 00:00 04/03/22 01:00 98 Room Air 04/02/22 23:00 Room Air 04/02/22 22:30 04/02/22 22:24 04/02/22 22:00 04/02/22 21:30 04/02/22 21:25 Room Air 04/02/22 21:00 Room Air Laboratory Results 04/03/22 05:49 04/03/22 05:49 Coding Level of Care Code 87472 Subseq Hosp Care Lvl 2 Diagnoses Foreign body in stomach T18.2XXA Self-harming behavior Foreign body in urethra T19.0XXA Schizophrenia F20.0 Schizophrenia type: paranoid schizophrenia Depression F32.A Depression Type: unspecified Anxiety F41.9 Microcytic anemia D50.9 DVT prophylaxis Z29.9 Bilateral calf pain M79.661; M79.662 Hypokalemia E87.6 (1) Schizophrenia Schizophrenia type: paranoid schizophrenia Qualified Code(s): F20.0 - Paranoi d schizophrenia (2) Depression Depression Type: unspecified Qualified Code(s): F32.A - Depression, unspecified
--- NOTE | 2022-04-03 09:25 | Gastroenterology Progress Note ---
Date of Service April 03, 2022 Assessment & Plan (1) Foreign body in stomach: Plan: Discussed case with Dr. Villalobos who advised on plan. - we will set the patient up for an egd for foreign body removal. Admission and Anticipated Discharge Date Admission Date: March 29, 2022 Subjective GI was asked to see again given concern for new foreign body on imaging. Patient tells me that as recent as 2 days ago he did swallow more paperclips and buttons. he denies any other GI complaints at this time. Physical Exam Constitutional: patient in restraints. Respiratory: normal respiratory effort, lungs clear to auscultation Cardiovascular: RRR, no murmur, no edema Gastrointestinal (Abdomen): normal bowel sounds, soft, nontender. Skin: no rashes, warm and dry Psychiatric: Orientation: alert and oriented x 3 Results & Data Results & Data ([facility]) Vital Signs (Past 12 Hours) Vital Signs Temp Pulse Pulse Resp BP BP Pulse Ox 04/03/22 07:39 04/03/22 06:36 72 14 118/65 99 04/03/22 06:00 72 14 118/65 99 04/03/22 05:00 76 12 122/67 97 04/03/22 04:00 74 15 97 04/03/22 04:00 36.7 C 110/58 L 04/03/22 03:00 66 14 117/69 98 04/03/22 02:00 79 15 106/62 95 04/03/22 00:00 82 04/02/22 22:00 80 04/03/22 01:00 74 15 114/66 97 04/03/22 00:00 36.5 C 81 15 111/65 97 04/03/22 01:00 04/02/22 23:00 89 16 98/58 L 95 04/02/22 22:30 82 14 95 04/02/22 22:24 77 12 108/63 98 04/02/22 22:00 107 H 98 04/02/22 21:30 83 15 98 04/02/22 21:25 37.1 C 14 119/84 99 Pulse Ox O2 Del Method O2 Del Method 04/03/22 07:39 Room Air 04/03/22 06:36 Room Air 04/03/22 06:00 Room Air 04/03/22 05:00 Room Air 04/03/22 04:00 04/03/22 04:00 04/03/22 03:00 Room Air 04/03/22 02:00 Room Air 04/03/22 00:00 04/02/22 22:00 04/03/22 01:00 04/03/22 00:00 04/03/22 01:00 98 Room Air 04/02/22 23:00 Room Air 04/02/22 22:30 04/02/22 22:24 04/02/22 22:00 04/02/22 21:30 04/02/22 21:25 Room Air PG Care Time/CCT Total # of Minutes Spent Total Time Spent with Patient: Total time spent is greater than 50% in coordination of care (as documented) at patient's floor/unit and/or counseling patient: Coding Level of Care Code 93937 Subseq Hosp Care Lvl 3 Diagnoses Foreign body in stomach T18.2XXA
--- NOTE | 2022-04-03 12:27 | Anesthesiology Consultation ---
Date of Service April 03, 2022 Assessment & Plan (1) Encounter for pre-operative examination: Chart Review Chart Review: Acceptable Risk for Surgery and Patient NOT seen in Pre Admission Testing History Surgery Operation Date: 03/25/22 00:15 Proposed Procedures p Cystoscopy - José Luis Burton DO Operation Date: 03/25/22 10:35 Proposed Procedures p Esophagogastroduodenoscopy - Henri Anderson Jr, MD Operation Date: 03/26/22 09:40 Proposed Procedures p Esophagogastroduodenoscopy Foreign Body Removal - Henri Anderson Jr, MD Operation Date: 03/27/22 14:10 Proposed Procedures p Exploratory Laparotomy, Gastrotomy Removal of Foreign Body - José Luis monsalve MD s Cystoscopy - Anton Randall MD Operation Date: 03/28/22 10:05 Proposed Procedures p Esophagogastroduodenoscopy - Aki Duval MD s Possible Laparotomy Gastrostomy Removal - José Luis Paiz MD Operation Date: 04/03/22 07:00 Proposed Procedures s Esophagoscopy - Tonja Orantes MD p Endoscopic Foreign Body Removal - Tonja Orantes MD Operation Date: 04/03/22 09:50 Proposed Procedures p Esophagogastroduodenoscopy - Luc Villalobos MD Height/Weight Height: 5 ft 10 in Weight: 82.5 kg Allergies Allergy/AdvReac Type Severity Reaction Status Date / Time No Known Allergies Allergy Verified 03/25/22 00:50 Medications Home Medications Medication Instructions Recorded Confirmed Last Taken haloperidol 10 mg tablet 10 mg PO 03/25/22 03/25/22 03/23/22 haloperidol 5 mg tablet 5 mg PO 03/25/22 03/25/22 03/23/22 lithium carbonate 300 mg capsule 300 mg PO BID 03/25/22 03/25/22 03/24/22 06:30 mirtazapine 45 mg tablet 45 mg PO 03/25/22 03/25/22 03/23/22 paroxetine HCl 10 mg tablet 10 mg PO 03/25/22 03/25/22 03/23/22 paroxetine HCl 20 mg tablet 20 mg PO 03/25/22 03/25/22 03/23/22 polyethylene glycol 3350 17 gram 17 g PO BID 03/25/22 03/25/22 03/24/22 06:30 oral powder packet (Miralax) Active Medications Generic Name Dose Route Start Last Admin Trade Name Freq PRN Reason Stop Dose Admin Haloperidol 10 mg 03/29/22 21:00 04/02/22 21:46 Haloperidol 5 Mg Tab PO 04/28/22 20:59 Not Given HS WAYNE [place] Carbonate 300 mg 03/26/22 21:00 04/02/22 21:46 [place] Carbonate 300 Mg Tab PO 04/25/22 20:59 Not Given BID WANYE Mirtazapine 45 mg 03/27/22 21:00 04/02/22 21:58 Mirtazapine Soltab 15 Mg PO 04/26/22 20:59 45 mg HS WAYNE Administration Protocol Ondansetron HCl 4 mg 03/28/22 13:40 04/02/22 19:52 Ondansetron Inj 2 Mg/Ml 2 Ml Vial IV 04/27/22 13:39 4 mg Q6H PRN Administration Nausea And Vomiting Paroxetine HCl 30 mg 03/25/22 02:45 04/02/22 21:47 Paroxetine Hcl 20 Mg Tab PO 04/24/22 02:44 Not Given HS WAYNE Polyethylene Glycol 17 gm 04/02/22 21:00 04/02/22 21:47 Polyethylene (Miralax) 17 Gm Pack PO 05/02/22 20:59 Not Given BID WAYNE NPO Date Last Intake of Fluids: 04/02/22 Time Last Intake of Fluids: 17:00 Date Last Intake of Solids: 04/02/22 Time Last Intake of Solids: 17:00 Past Medical History Medical History Anxiety Depression Foreign body in urethra H/O swallowed foreign body Schizophrenia Suicidal ideation Past Surgical History Surgical History H/O cystoscopy H/O esophagogastroduodenoscopy H/O exploratory laparotomy Social History Smoking Status: Never smoker tobacco type: cigarettes Do You Dip or Chew Tobacco: No Hx Alcohol Use: No Hx Substance Use: No substance use type: does not use Physical Exam Vital Signs Last Vital Signs Temp 36.7 C 04/03/22 11:45 Pulse 64 04/03/22 11:30 Resp 14 04/03/22 11:30 BP 115/75 04/03/22 11:30 Pulse Ox 98 04/03/22 11:30 O2 Del Method 04/03/22 11:30 O2 Flow Rate 3 03/28/22 12:15 Testing Laboratory Results 04/03/22 05:49 04/03/22 05:49 PT 11.1 Seconds (9.0-12.0) 03/24/22 20:48 INR 1.0 (0.9-1.1) 03/24/22 20:48 APTT 24.6 Seconds (21.0-31.0) 03/24/22 20:48 Urine Color Yellow 03/25/22 Unknown Urine Appearance Slightly Cloudy (Clear) A 03/25/22 Unknown Urine pH 8.0 (4.5-7.5) H 03/25/22 Unknown Ur Specific [place] > 1.045 (1.000-1.030) H 03/25/22 Unknown Urine Protein Negative (Negative) 03/25/22 Unknown Urine Glucose (UA) Negative (Negative) 03/25/22 Unknown Urine Ketones Negative (Negative) 03/25/22 Unknown Urine Nitrite Negative (Negative) 03/25/22 Unknown Ur Leukocyte Esterase 2+ (Negative) H 03/25/22 Unknown Urine WBC (Auto) >30 /hpf (0-5) H 03/25/22 Unknown Urine RBC (Auto) 0-4 /hpf (0-4) 03/25/22 Unknown U Hyaline Cast (Auto) 1-5 /lpf (0-5) 03/25/22 Unknown U Epithel Cells (Auto) 5-10 /lpf (0-5) H 03/25/22 Unknown Urine Bacteria (Auto) Negative (Negative) 03/25/22 Unknown 03/25/22 Unknown Urine Culture - Final Urine,Clean Catch Three types or organisms present, all moderate counts probable skin jerilyn. No further identifications or sensitivities to follow. 04/03/22 11:47 POC Glucose 82
--- NOTE | 2022-04-03 13:29 | Electrocardiogram Report ---
Test Reason : Blood Pressure : / mmHG Vent. Rate : 075 BPM Atrial Rate : 075 BPM P-R Int : 142 ms QRS Dur : 086 ms QT Int : 398 ms P-R-T Axes : 078 071 057 degrees QTc Int : 444 ms Normal sinus rhythm with sinus arrhythmia ST elevation, consider early repolarization, pericarditis, or injury Abnormal ECG When compared with ECG of 02-APR-2022 23:33, (unconfirmed) No significant change was found Confirmed by Rubio Sampson ([id number]) on 04/03/2022 1:29:22 PM Referred By: REFERRED SELF Confirmed By:Luis Sampson
--- NOTE | 2022-04-03 13:35 | Electrocardiogram Report ---
Test Reason : Blood Pressure : / mmHG Vent. Rate : 069 BPM Atrial Rate : 069 BPM P-R Int : 154 ms QRS Dur : 084 ms QT Int : 396 ms P-R-T Axes : 076 061 053 degrees QTc Int : 424 ms Normal sinus rhythm Nonspecific ST and T wave abnormality Abnormal ECG When compared with ECG of 28-NOV-2021 15:25, No significant change was found Confirmed by Rubio Sampson ([id number]) on 04/03/2022 1:34:56 PM Referred By: REFERRED SELF Confirmed By:Luis Sampson
--- NOTE | 2022-04-03 13:43 | XRay Report ---
SINGLE VIEW CHEST CLINICAL HISTORY: Hemoptysis FINDINGS: An AP, portable, upright chest radiograph is compared to study dated 04/03/2022 and correlat ed with chest CT dated 12/08/2021. The cardiomediastinal silhouette is unremarkable. There is a small left pleural effusion. The lungs are otherwise clear. No pneumothorax is seen. The bony thorax is alejandra ssly intact. Linear metallic foreign bodies project over the stomach. IMPRESSION: 1. There is a small left pleural effusion. 2. Linear metallic foreign bodies project over the stomach. ACT 112: Negative or not required by law. Electronically signed by: Henrique Slaughter M.D. 04/03/2022 1:42 PM
--- NOTE | 2022-04-03 13:52 | XRay Report ---
XR soft tissue neck CLINICAL HISTORY: foreign body sensation in throat,assess for FB COMPARISON STUDY: Neck radiographs performed earlier today. FINDINGS: The 1.9 cm linear metallic foreign body has migrated distally and is now near the upper eso phageal sphincter, just to the left of midline. No additional radiopaque foreign bodies within the ne ck are identified. The possible subcutaneous emphysema on prior exam is not well visualized on this e xam. IMPRESSION: Distal migration of the 1.9 cm metallic foreign body now near the upper esophageal sphin cter, just to the left of midline. ACT 112: Negative or not required by law. Electronically signed by: Layton Lui M.D. 04/03/2022 1:50 PM
[2022-04-03] MEDS ORDERED: LAVAGE SOLUTION 4000ML PO SCH (14:00)
--- NOTE | 2022-04-03 14:29 | Hospitalist Progress Note ---
Date of Service April 03, 2022 Assessment & Plan (1) Foreign body in stomach: Plan: Intentional ingestion of multiple FBs--> frequent admissions and ER visits for such in the last 6 months Underwent EGD 03/[address] Anderson, [facility]. Normal esophagus. 3 cm piece of gurpreet stic tied to a piece of headphones and a washer. This was unable to be extracted through upper esophageal sphincter due to wedging in the esophagus. Thus - s/p exploratory laparotomy and gastrotomy with foreign body removal (2 pieces been tied together with plastic washers) 03/27/2022 - Isaias Paiz MD. Patient self removed NGT overnight of 03/27 into 03/28, replacement deferred by surgery. Unfortunately had a retained foreign body after 03/27 gastrotomy procedure. Patient had 2nd EGD on 03/[address] Duval of [facility]. 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 s/p upper GI series on 03/31- no leak from stomach, ?retained foreign bodies x 2. KUB 04/01, again shows button-like foreign bodies and a total of 4 foreign b odies-it seems these are new in the last 2 days compared to previous imaging on 03/28-suspicion that he ingested further foreign body since the last EGD. The patient did admit to swallowing paperclips and buttons after his surgery. KUB 04/02 now with 10 FBs mostly in large bowel-I do not suspect new FBs ingested in the last day but likely just some of these were bunched together on previous xray or obscured by contrast from previous UGI study Healing well post-op from ex lap His diet was advanced to low fiber on 04/02, but then had 1 episode of vomiting which resulted in metallic foreign body getting stuck in the throat He was transferred to the ICU for observation for airway protection and ENT removed foreign body in the throat under direct laryngoscopy on the morning of 04/03 He then had an episode of emesis with either hemoptysis versus hematemesis on the afternoon of 04/03 and again noted on x-ray to have recurrent metallic foreign body in the throat CT soft tissues neck, chest, and abdomen/pelvis performed-fortunately throat foreign body was gone-suspect he swallowed it, and multiple foreign bodies remain in the stomach and bowels. No evidence of perforation -Attempts to get patient EGD to remove the residual metallic foreign bodies were unsuccessful both with local GI and calling to [facility] (on divert, no beds available), [facility] (GI and triage medical collector did not feel transfer was necessary and that general GI could perform the endoscopy), and [facility] GI felt he would be [facility] Present captain contacted by ice guard inspector and does not approve transfer to [facility] unless it is a life or situation. At this time, he is stable and it is not an emergency to transfer him. -Check KUB in the morning -The metal screen pending -The skilled nursing has dictated since 04/01 that the patient now remain in three-point restraints, he has a spit mask in place, and they have asked for soft mitts to be placed on both hands to prevent him from continuing to ingest more foreign bodies. -Keep n.p.o. -Continue LR at 75 MLS per hour -Hold all p.o. meds -Tomorrow, will see if surgery is willing to perform endoscopy versus different on-call in tube conversion technician (2) Self-harming behavior: Plan: history of such - numerous occasions with various objects, often by way of ingestion as well as insertion of objects in the urethra. Unclear if this is due to psychiatric condition or malingering No foreign material, detachable material, small pieces/parts should be in arms raised with patient at any time. This includes drawstrings to close/waistbands, EKG stickers, and any loose material. Patient has a recurrent history of quickly ingesting or placing foreign materials into orifices. (3) Foreign body in urethra: Plan: Foreign body in urethra - 03/25 and 03/27 - removal on 2 occasions by [facility] in the OR via cystoscopy- Appreciate urology consultation He then poked a hole in his Hernandez catheter and deflated the balloon and pulled it out himself overnight on 03/31 No evidence of trauma to the penis on exam on 04/01 Received ceftriaxone 1 g IV daily empirically x 7 days recent urine cx negative Had presumed urinary retention of 1000mL on bladder scan on 105 AM and unsuccessful attempt at Hernandez placement as per RN-then pt voided large amount on own without difficulty-question if he is malingering with regards to retention but certainly could have reason to have retention due to multiple FB insertions, inflammation, stricture, etc. Pelvic xray 04/02 no radio-opaque FB Hernandez catheter replaced on 04/02 -Again, taking precautions as above to avoid recurrent placement of foreign body in the urethra (4) Schizophrenia: Plan: Unclear if this is a true diagnosis [facility] records only have a diagnosis of antisocial personality disorder Typically is on lithium BID - level nontoxic range this am, Paxil, Remeron, and Haldol Earlier in his stay, increased haldol dose of 10mg HS has resolved the hearing of voices. -Currently holding all p.o. meds Could give Haldol IM as needed (5) Depression: Plan: meds as above (6) Anxiety: Plan: meds as above (7) Microcytic anemia: Plan: Fe studies wnl could have thalassemia could have high lead levels HEAVY METAL SCREEN PENDING repeat cbc am (8) Bilateral calf pain: Plan: could be 2nd to low magnesium- replaced with IV magnesium and had improvement Lower extremity Dopplers negative for DVT (9) Hypokalemia: Plan: resolved Follow BMP (10) DVT prophylaxis: Plan: Hold Lovenox for bleeding and procedure Plan Disposition-skilled nursing physician requested that he stay in the hospital until all foreign bodies have passed. Continued stay at [facility], but low threshold to transfer if needs urgent repeat GI procedure Admission and Anticipated Discharge Date Admission Date: March 29, 2022 Subjective Pt had direct laryngoscopy this AM with ENT and had removal of metallic FB from his throat. I discussed his care with GI earlier in the day about doing an EGD to try to remove the remaining metallic foreign bodies in the stomach. EGD could not be performed however as he could not be consented due to receiving anesthesia earlier in the day for his ENT procedure. Later in the afternoon, I was contacted by the nurse after the patient coughed up about 15 mL of bright red blood and was complaining of sensation of foreign body in the throat again. Soft tissue neck x-ray performed and again showed curvilinear metallic foreign body in the hypopharynx. I saw the patient and he was feeling anxious about the sensation in his throat. I witnessed a scant amount of fresh blood that he had spit onto the blanket in front of him. He also was complaining of chest pains. Vitals were stable. I discussed his care with the teletype installer and decision made to get CT of the soft tissues of the neck, chest, and abdomen/pelvis. I reviewed those images and noted that the foreign body was no longer in the throat fortunately, but foreign bodies remained in the stomach and multiple areas throughout the intestines. I then discussed his care with GI, Dr. Villalobos who recommended transfer to tertiary care center or somewhere with advanced endoscopist and backup thoracic and/or trauma surgery in case of esophageal or gastric perforation should repeat EGD be performed in case of complications. I called [facility] and they said that they were on diversion and there would be no beds available for quite some time. They recommended calling elsewhere. I then called [facility] in [place] and spoke with their on-call GI doctor as well as triage medical collector-they did not feel that the patient needed to be transferred and that the general GI doctor could perform an EGD with average risk for perforation. They also recommended I contact Dr. Alfredo Urban of [facility] who had scoped the patient previously this admission. I did then call Dr. Alfredo Urban who said he would be willing to scope the patient in our facility, however he was working at a different facility for this week and would not be available. I then contacted Dr. Villalobos again and asked if his partner Dr. Crandall would be willing to scope the patient and I was told that he also agreed with transfer to tertiary care and would not scope the patient here. I then reached out to [facility] and first spoke with the hospitalist and then with the in tube conversion technician at [facility]. The GI physician there felt that if our GI wanted him to be seen by an advanced endoscopist and have trauma and or thoracic surgery available, he would be best served at a tertiary care facility at [facility] or [facility] in [place]. I then discussed the possibility of transfer to [place] with the ice guard inspector who contacted the [facility]. They recommended against transfer as far away as [place] unless it was a "life or situation." At this time, currently the patient is quite stable and is not in any "life or situation." He will remain in the ICU overnight for continued observation, remain n.p.o. with IV fluids running. In the morning, I will discuss his care with the on-call in tube conversion technician as well as the surgeon and see if it is necessary or possible to perform endoscopy in this facility in the next day or 2 if the foreign bodies continue to remain in the stomach. Of note, I also kept to the ENT surgeon abreast of the situation today in case his services were needed for further laryngoscopy. I spent a total of 240 minutes in the care of this patient in prolonged service today. Review of Systems Review of Systems: All systems reviewed & are unremarkable except as noted in HPI & below Physical Exam Physical Exam: gen - NAD, lying comfortably in bed, appears anxious mouth - mmm, no foreign body noted in posterior oropharynx, no bleeding noted heart - RRR, s1 s2, no murmur lungs - CTA b/l abd - BS+, NT, abd wall incision clean, soft, ND ext - no edema psych - not responding to internal stimuli, awake, alert, normal conversational speech, flat affect Results & Data Results & Data ([facility]) Vital Signs (Past 12 Hours) Vital Signs Temp Pulse Pulse Resp BP BP Pulse Ox 04/03/22 11:30 64 14 98 04/03/22 11:30 115/75 04/03/22 11:15 67 11 L 96 04/03/22 11:15 115/79 04/03/22 11:00 59 L 14 90 04/03/22 11:00 122/75 04/03/22 10:45 60 11 L 100 04/03/22 10:45 99/62 L 04/03/22 10:30 66 12 100 04/03/22 10:30 96/58 L 04/03/22 10:16 105/65 04/03/22 10:16 59 L 12 99 04/03/22 10:15 67 14 99 04/03/22 10:00 66 16 99 04/03/22 10:00 109/72 04/03/22 09:45 65 13 99 04/03/22 09:45 112/76 04/03/22 09:30 64 14 98 04/03/22 09:30 111/61 04/03/22 09:15 62 11 L 100 04/03/22 09:15 116/66 04/03/22 09:00 63 8 L 99 04/03/22 09:00 95/61 L 04/03/22 08:45 67 9 L 100 04/03/22 08:45 100/55 L 04/03/22 08:30 64 15 98 04/03/22 08:30 120/68 04/03/22 08:15 68 8 L 97 04/03/22 08:15 105/62 04/03/22 08:00 70 14 97 04/03/22 08:00 97/52 L 04/03/22 07:45 68 15 98 04/03/22 07:45 101/56 L 04/03/22 07:30 73 15 97 04/03/22 07:30 110/59 L 04/03/22 07:19 110/60 04/03/22 07:19 83 14 04/03/22 07:40 36.7 C 04/03/22 11:45 36.7 C 04/03/22 07:39 04/03/22 06:36 72 14 118/65 99 04/03/22 06:00 72 14 118/65 99 04/03/22 05:00 76 12 122/67 97 04/03/22 04:00 74 15 97 04/03/22 04:00 36.7 C 110/58 L 04/03/22 03:00 66 14 117/69 98 O2 Del Method 04/03/22 11:30 Room Air 04/03/22 11:30 04/03/22 11:15 04/03/22 11:15 04/03/22 11:00 04/03/22 11:00 04/03/22 10:45 04/03/22 10:45 04/03/22 10:30 04/03/22 10:30 04/03/22 10:16 04/03/22 10:16 04/03/22 10:15 04/03/22 10:00 Room Air 04/03/22 10:00 04/03/22 09:45 04/03/22 09:45 04/03/22 09:30 04/03/22 09:30 04/03/22 09:15 04/03/22 09:15 04/03/22 09:00 04/03/22 09:00 04/03/22 08:45 04/03/22 08:45 04/03/22 08:30 04/03/22 08:30 04/03/22 08:15 04/03/22 08:15 04/03/22 08:00 04/03/22 08:00 04/03/22 07:45 04/03/22 07:45 04/03/22 07:30 04/03/22 07:30 04/03/22 07:19 04/03/22 07:19 04/03/22 07:40 04/03/22 11:45 04/03/22 07:39 Room Air 04/03/22 06:36 Room Air 04/03/22 06:00 Room Air 04/03/22 05:00 Room Air 04/03/22 04:00 04/03/22 04:00 04/03/22 03:00 Room Air Laboratory Results 04/03/22 04/03/22 04/03/22 Range/Units 11:47 05:49 05:49 WBC 5.85 (4.8-10.8) K/ul RBC 5.33 (4.63-6.08) M/uL Hgb 13.0 L (14.0-18.0) g/dl Hct 41.6 (40.1-51.0) % MCV 78.0 L (80.0-100.0) fL MCH 24.4 L (25.0-34.0) pg MCHC 31.3 L (32.0-36.0) g/dL RDW Std Deviation 38.2 (36.4-46.3) fL RDW Coeff of Bassem 13.4 (11.5-14.5) % Plt Count 257 (130-400) K/uL MPV 9.8 (9.4-12.4) fL Immature Gran % (Auto) 0.2 % Neut % (Auto) 66.6 % Lymph % (Auto) 20.0 % Glenn % (Auto) 9.4 % Eos % (Auto) 3.6 % Baso % (Auto) 0.2 % Neut # (Auto) 3.90 (1.4-6.5) K/uL Lymph # (Auto) 1.17 L (1.2-3.4) K/uL Glenn # (Auto) 0.55 (0.24-0.82) K/uL Eos # (Auto) 0.21 (0-0.50) K/uL Baso # (Auto) 0.01 (0-0.2) K/uL Immature Gran # (Auto) 0.01 (0.00-0.02) K/uL Sodium 138 (136-145) mmol/L Potassium 4.0 (3.5-5.1) mmol/L Chloride 103 (98-107) mmol/L Carbon Dioxide 30 (21-32) mmol/L Anion Gap 5 (3-11) BUN 12 (6-23) mg/dl Creatinine 1.28 (0.6-1.4) mg/dl Est Cr Clr Drug Dosing 93.5 ml/min Est GFR ( Amer) 91.5 ml/min Est GFR (Non-Af Amer) 78.9 ml/min BUN/Creatinine Ratio 9.4 L (10-20) Glucose 95 (70-99(Fasting)) mg/dl POC Glucose 82 (70-99) mg/dl Calcium 9.7 (8.5-10.1) mg/dl Magnesium 1.9 (1.7-2.4) mg/dl Diagnostic Findings All images from 04/03/2022 were personally reviewed by me and agree with the following reports: Chest X-Ray 04/03/22 04:00 XR chest 1V portable CLINICAL HISTORY: Evaluate for foreign body- preoperative do at 0400 COMPARISON STUDY: Chest radiograph April 02, 2022. Chest CT December 08, 2021. FINDINGS: No radiopaque foreign bodies are identified within the chest. 3 linear metallic foreign bodies within the stomach are noted. These measure up to 5.4 cm in length. There is no pneumothorax or pleural effusion. There is no consolidation. Cardiac size is normal. IMPRESSION: 1. No acute cardiopulmonary findings. 2. No radiopaque foreign bodies within the chest. 3. 3 linear metallic foreign bodies within the stomach. ACT 112: Negative or not required by law. Electronically signed by: Layton Liu M.D. 04/03/2022 7:20 AM Soft Tissue Neck X-Ray 04/03/22 05:00 XR soft tissue neck HISTORY: 22 years-old Male reassess foreign body in AM follow-up study in a patient with foreign body ingestion COMPARISON: Soft tissue neck radiographs 04/02/2022 TECHNIQUE: 3 views of the soft tissues of the neck FINDINGS: 3 cm linear metallic foreign body within the expected location of the vallecula is redemonstrated and has slightly moved posteriorly in the airway. Mild soft tissue swelling within the submandibular tissues. Possible subcutaneous emphysema within the anterior neck. No prevertebral edema. IMPRESSION: 1. 3 mm linear metallic foreign body within the expected location of the vallecula has moved slightly posteriorly within the airway. 2. Possible subcutaneous emphysema of the anterior neck. ACT 112: Negative or not required by law. The above report was generated using voice recognition software. It may contain grammatical, syntax or spelling errors. Electronically signed by: Bernardino Rome M.D. 04/03/2022 7:42 AM KUB X-Ray 04/03/22 08:00 KUB CLINICAL HISTORY: f/u foreign bodies COMPARISON STUDY: CT of the abdomen and pelvis March 24, 2022. KUB April 02, 2022. FINDINGS: Residual contrast within the colon and rectum is noted. There is no evidence for free air on this supine exam. 3 linear metallic foreign bodies within the stomach are noted. There are multiple foreign bodies within the ascending colon. Several additional linear metallic foreign bodies may be within small or large bowel. These are within the mid and left abdomen. There is no evidence for a bowel obstruction. A few foreign bodies shown on prior exam are no longer visualized and have likely passed. IMPRESSION: Multiple foreign bodies within the stomach and small and large bowel, as described above. ACT 112: Negative or not required by law. Electronically signed by: Layton Liu M.D. 04/03/2022 7:30 AM Soft Tissue Neck X-Ray 04/03/22 13:13 XR soft tissue neck CLINICAL HISTORY: foreign body sensation in throat,assess for FB COMPARISON STUDY: Neck radiographs performed earlier today. FINDINGS: The 1.9 cm linear metallic foreign body has migrated distally and is now near the upper esophageal sphincter, just to the left of midline. No additional radiopaque foreign bodies within the neck are identified. The possible subcutaneous emphysema on prior exam is not well visualized on this exam. IMPRESSION: Distal migration of the 1.9 cm metallic foreign body now near the upper esophageal sphincter, just to the left of midline. ACT 112: Negative or not required by law. Electronically signed by: Layton Liu M.D. 04/03/2022 1:50 PM Chest X-Ray 04/03/22 13:16 SINGLE VIEW CHEST CLINICAL HISTORY: Hemoptysis FINDINGS: An AP, portable, upright chest radiograph is compared to study dated 04/03/2022 and correlated with chest CT dated 12/08/2021. The cardiomediastinal silhouette is unremarkable. There is a small left pleural effusion. The lungs are otherwise clear. No pneumothorax is seen. The bony thorax is grossly intact. Linear metallic foreign bodies project over the stomach. IMPRESSION: 1. There is a small left pleural effusion. 2. Linear metallic foreign bodies project over the stomach. ACT 112: Negative or not required by law. Electronically signed by: Henrique Slaughter M.D. 04/03/2022 1:42 PM Abdomen/Pelvis CT 04/03/22 14:[address] WITHOUT CONTRAST CT DOSE: 1505.58 mGy.cm HISTORY: Follow up study in a patient with numerous ingested foreign bodies assess foreign bodies TECHNIQUE: Multiaxial CT images of the abdomen and pelvis were performed without contrast. A dose lowering technique was utilized adhering to the principles of ALARA. COMPARISON STUDY: KUB of same day, CT abdomen and pelvis 03/24/2022 FINDINGS: Trace pleural and pericardial effusions. Mild subsegmental bibasilar opacities. No pneumatosis or pneumoperitoneum identified. Study is limited without the use of IV contrast. The unenhanced spleen, pancreas and adrenal glands are unremarkable. Hyperdense material within the dependent gallbladder. Cholelithiasis or vicarious excretion of contrast. Unremarkable liver. Kidneys are within normal limits without hydronephrosis. Hernandez catheter within the urinary bladder lumen. Air within the bladder may be secondary to instrumentation. Nonspecific urinary bladder wall thickening. Aorta and IVC are unremarkable. No lymphadenopathy. Postoperative changes of the midline anterior abdominal wall. Evaluation of the patient's known foreign bodies is limited secondary to concomitant oral contrast. There is a 4.5 cm linear metallic density foreign body the proximal stomach. Smaller linear metallic foreign body measuring approximately 2 cm from the proximal stomach. Additional metallic density foreign bodies within the distal stomach measuring a at least 2 cm in length. 2.6 cm linear metallic foreign body is noted within loops of small bowel within the central abdomen, image 194. 4.3 cm linear metallic foreign bodies noted within a loop of small bowel within the abdominal left lower quadrant on image 234. A cluster of 3 subadjacent foreign bodies are present within colon. 2 cm limited metallic foreign body is noted within a loop of large bowel within the abdominal aorta quadrant on image 253. The appendix is not definitively seen. No secondary signs of acute appendicitis. No acute fracture. Unremarkable soft tissues. IMPRESSION: 1. Numerous ingested foreign bodies of the GI tract are present within the stomach, small and large bowel as above. 2. No bowel obstruction or pneumoperitoneum. 3. Postoperative changes of the anterior abdominal wall with mild mesenteric edema. No pneumoperitoneum. 4. Trace pericardial and pleural effusions. ACT 112: Negative or not required by law. The above report was generated using voice recognition software. It may contain grammatical, syntax or spelling errors. Electronically signed by: Bernardino Rome M.D. 04/03/2022 3:[address] 04/03/22 14:24 CT SCAN OF THE CHEST WITHOUT IV CONTRAST CLINICAL HISTORY: Hemoptysis. Foreign body ingestion. COMPARISON STUDY: Chest x-ray dated 04/03/2022. Chest CT dated 12/08/2021. TECHNIQUE: CT scan of the thorax was performed from the thoracic inlet to the upper abdomen. Images are reviewed in the axial, sagittal, and coronal planes. IV contrast was not administered for this examination as per the referring clinician. A dose lowering technique was utilized adhering to the principles of ALARA. FINDINGS: Thyroid: Imaged portions of the thyroid gland are normal in size and attenuation. Thoracic aorta: The thoracic aorta is normal in caliber and demonstrates bovine variant arch anatomy. Heart: The heart is normal in size noting a small to moderate pericardial effusion. Lungs and pleural spaces: There are trace pleural effusions, left larger than right with dependent atelectasis. The lungs are otherwise clear. The trachea and central airways are patent. Mediastinum: There is no pneumomediastinum. No adenopathy is seen. Esophagus: Normal as visualized. There is no evidence of esophageal foreign body. Harriet: Not well assessed without IV contrast. Axillae: There is no axillary lymphadenopathy. Upper abdomen: Postsurgical change and suture material is noted in the stomach. There are at least 3 linear metallic foreign bodies seen in the stomach. Partially visualized upper abdominal viscera is within normal limits. Skeletal structures: No lytic or blastic bony lesions are seen. IMPRESSION: 1. There are at least 3 thin linear metallic foreign bodies seen in the stomach. 2. No foreign body is identified in the thorax. 3. Trace pleural effusions with dependent atelectasis. 4. There is no pneumomediastinum or pneumothorax. ACT 112: Negative or not required by law. Electronically signed by: Henrique Slaughter M.D. 04/03/2022 3:[address] 04/03/22 14:24 CT OF THE NECK WITHOUT CONTRAST CLINICAL HISTORY: assess for foreign body COMPARISON STUDY: Neck radiographs April 03, 2022. TECHNIQUE: Axial images of the neck were obtained without IV contrast. Automated exposure control was utilized for the study. A dose lowering technique was utilized adhering to the principles of ALARA. FINDINGS: No radiopaque foreign bodies are identified within the neck. The metallic foreign body on radiographs performed earlier today has been removed. There is no soft tissue gas within the neck. There is no cervical ly mphadenopathy. No fluid collection is identified on this unenhanced exam. Epiglottis is normal. The chest CT will be reported separately. IMPRESSION: No radiopaque foreign bodies within the neck. Interval removal of the metallic foreign body shown on prior radiographs. ACT 112: Negative or not required by law. Electronically signed by: Layton Liu M.D. 04/03/2022 3:26 PM PG Care Time/CCT Total # of Minutes Spent Total Time Spent with Patient: Total time spent is greater than 50% in coordination of care (as documented) at patient's floor/unit and/or counseling patient: Prolonged Care Time Prolonged Care Time: Yes Total Prolonged Care Time: 240 Coding Level of Care Code 52906 Subseq Hosp Care Lvl 3 (25 - SIGNIFICANT, SEPARATELY IDENTIFIABLE ) Diagnoses Foreign body in stomach T18.2XXA Self-harming behavior Foreign body in urethra T19.0XXA Schizophrenia F20.0 Schizophrenia type: paranoid schizophrenia Depression F32.A Depression Type: unspecified Anxiety F41.9 Microcytic anemia D50.9 Bilateral calf pain M79.661; M79.662 Hypokalemia E87.6 DVT prophylaxis Z29.9 Additional Codes Prolonged Care Time - Prolonged Care Time: Yes ([id number]) (1) Depression Depression Type: unspecified Qualified Code(s): F32.A - Depression, unspecified (2) Schizophrenia Schizophrenia type: paranoid schizophrenia Qualified Code(s): F20.0 - Paranoid schizophrenia
--- NOTE | 2022-04-03 15:28 | CT Scan Report ---
CT OF THE NECK WITHOUT CONTRAST CLINICAL HISTORY: assess for foreign body COMPARISON STUDY: Neck radiographs April 03, 2022. TECHNIQUE: Axial images of the neck were obtained without IV contrast. Automated exposure control was utilized for the study. A dose lowering technique was utilized adhering to the principles of ALARA. FINDINGS: No radiopaque foreign bodies are identified within the neck. The metallic foreign body on r adiographs performed earlier today has been removed. There is no soft tissue gas within the neck. The re is no cervical lymphadenopathy. No fluid collection is identified on this unenhanced exam. Epiglot tis is normal. The chest CT will be reported separately. IMPRESSION: No radiopaque foreign bodies within the neck. Interval removal of the metallic foreign b marce shown on prior radiographs. ACT 112: Negative or not required by law. Electronically signed by: Layton Liu M.D. 04/03/2022 3:26 PM
--- NOTE | 2022-04-03 15:29 | CT Scan Report ---
CT SCAN OF THE CHEST WITHOUT IV CONTRAST CLINICAL HISTORY: Hemoptysis. Foreign body ingestion. COMPARISON STUDY: Chest x-ray dated 04/03/2022. Chest CT dated 12/08/2021. TECHNIQUE: CT scan of the thorax was performed from the thoracic inlet to the upper abdomen. Images are reviewed in the axial, sagittal, and coronal planes. IV contrast was not administered for this ex amination as per the referring clinician. A dose lowering technique was utilized adhering to the tejas rosangela of ARTURO. FINDINGS: Thyroid: Imaged portions of the thyroid gland are normal in size and attenuation. Thoracic aorta: The thoracic aorta is normal in caliber and demonstrates bovine variant arch anatomy. Heart: The heart is normal in size noting a small to moderate pericardial effusion. Lungs and pleural spaces: There are trace pleural effusions, left larger than right with dependent at electasis. The lungs are otherwise clear. The trachea and central airways are patent. Mediastinum: There is no pneumomediastinum. No adenopathy is seen. Esophagus: Normal as visualized. There is no evidence of esophageal foreign body. Harriet: Not well assessed without IV contrast. Axillae: There is no axillary lymphadenopathy. Upper abdomen: Postsurgical change and suture material is noted in the stomach. There are at least 3 linear metallic foreign bodies seen in the stomach. Partially visualized upper abdominal viscera is w ithin normal limits. Skeletal structures: No lytic or blastic bony lesions are seen. IMPRESSION: 1. There are at least 3 thin linear metallic foreign bodies seen in the stomach. 2. No foreign body is identified in the thorax. 3. Trace pleural effusions with dependent atelectasis. 4. There is no pneumomediastinum or pneumothorax. ACT 112: Negative or not required by law. Electronically signed by: Henrique Slaughter M.D. 04/03/2022 3:28 PM
--- NOTE | 2022-04-03 15:39 | CT Scan Report ---
ABDOMEN AND PELVIS CT WITHOUT CONTRAST CT DOSE: 1505.58 mGy.cm HISTORY: Follow up study in a patient with numerous ingested foreign bodies assess foreign bodies TECHNIQUE: Multiaxial CT images of the abdomen and pelvis were performed without contrast. A dose lo wering technique was utilized adhering to the principles of ALARA. COMPARISON STUDY: KUB of same day, CT abdomen and pelvis 03/24/2022 FINDINGS: Trace pleural and pericardial effusions. Mild subsegmental bibasilar opacities. No pneumato sis or pneumoperitoneum identified. Study is limited without the use of IV contrast. The unenhanced s pleen, pancreas and adrenal glands are unremarkable. Hyperdense material within the dependent gallbla dder. Cholelithiasis or vicarious excretion of contrast. Unremarkable liver. Kidneys are within armin l limits without hydronephrosis. Hernandez catheter within the urinary bladder lumen. Air within the blad curly may be secondary to instrumentation. Nonspecific urinary bladder wall thickening. Aorta and IVC a re unremarkable. No lymphadenopathy. Postoperative changes of the midline anterior abdominal wall. Evaluation of the patient's known forei gn bodies is limited secondary to concomitant oral contrast. There is a 4.5 cm linear metallic densit y foreign body the proximal stomach. Smaller linear metallic foreign body measuring approximately 2 c m from the proximal stomach. Additional metallic density foreign bodies within the distal stomach alexandr suring a at least 2 cm in length. 2.6 cm linear metallic foreign body is noted within loops of small bowel within the central abdomen, image 194. 4.3 cm linear metallic foreign bodies noted within a loo p of small bowel within the abdominal left lower quadrant on image 234. A cluster of 3 subadjacent fo reign bodies are present within colon. 2 cm limited metallic foreign body is noted within a loop of l arge bowel within the abdominal aorta quadrant on image 253. The appendix is not definitively seen. N o secondary signs of acute appendicitis. No acute fracture. Unremarkable soft tissues. IMPRESSION: 1. Numerous ingested foreign bodies of the GI tract are present within the stomach, small and large b owel as above. 2. No bowel obstruction or pneumoperitoneum. 3. Postoperative changes of the anterior abdominal wall with mild mesenteric edema. No pneumoperitone um. 4. Trace pericardial and pleural effusions. ACT 112: Negative or not required by law. The above report was generated using voice recognition software. It may contain grammatical, syntax o r spelling errors. Electronically signed by: Bernardino Rome M.D. 04/03/2022 3:37 PM
[2022-04-03] MEDS: LACTATED RINGER'S 1,000 ML IV SCH (17:59)
[2022-04-03] MEDS: MIRTAZAPINE SOLTAB 15 MG PO SCH ×2 (21:59→23:33)
[2022-04-03] MEDS: haloperidoL 5 MG TAB PO SCH (21:59)
[2022-04-03] MEDS: PARoxetine HCL 20 MG TAB PO SCH (21:59)
[2022-04-03] MEDS: LITHIUM CARBONATE 300 MG TAB PO SCH (21:59)
[2022-04-03] MEDS ORDERED: HALOPERIDOL LACTATE 5 MG/ML 1 ML VIAL IM STA (23:12)
[2022-04-03] MEDS: ACETAMINOPHEN 1,000 MG/100 ML VIAL IV PRN (23:33)
--- NOTE | 2022-04-03 23:46 | XRay Report ---
ABDOMEN 2 VIEWS CLINICAL HISTORY: Foreign body ingestion. FINDINGS: Supine and erect abdominal radiographs are compared to abdominal radiographs and CT perform ed earlier the same day 04/03/2022. There is a nonobstructed abdominal bowel gas pattern. Residual ent zora contrast is seen throughout the colon. No evidence of intraperitoneal free air is identified. Salguero ture material is seen below the left hemidiaphragm. At least 4 linear metallic foreign bodies project over the left upper quadrant. An additional curvilinear foreign body is seen projecting over the rig ht upper quadrant. 2 additional linear metallic foreign bodies project over the mid abdomen. Addition al metallic foreign bodies project over the right midabdomen and the right lower quadrant. The bony s tructures appear intact. Small pleural effusions are noted. IMPRESSION: Numerous foreign bodies as above. Electronically signed by: Zora Slaughter M.D. 04/03/2022 11:45 PM
--- NOTE | 2022-04-03 23:46 | XRay Report ---
TWO VIEW CHEST CLINICAL HISTORY: Foreign bodies. Chest pain. FINDINGS: PA and lateral chest radiographs are compared to chest x-ray and chest CT performed earlier the same day 04/03/2022. The cardiomediastinal silhouette is unremarkable. There are small pleural ef fusions. No airspace consolidation is identified. There is no pneumothorax. The bony thorax appears i ntact. No radiodense foreign bodies project over the chest. A linear metallic foreign body is seen be low left hemidiaphragm. IMPRESSION: 1. Small pleural effusions. 2. No radiodense foreign bodies project over the thorax. 3. A linear metallic foreign body projects below the left hemidiaphragm. ACT 112: Negative or not required by law. Electronically signed by: Henrique Slaughter M.D. 04/03/2022 11:44 PM
[2022-04-04 04:36] LABS: Basophils # (auto) 0.01 K/uL (0-0.2); Basophils % (auto) 0.2 %; Eosinophils # (auto) 0.15 K/uL (0-0.50); Eosinophils % (auto) 2.6 %; Hematocrit (blood only) 36.9 % (40.1-51.0); Hemoglobin 11.8 g/dl (14.0-18.0); Immature Granulocytes # (auto) 0.02 K/uL (0.00-0.02); Immature Granulocytes % (auto) 0.3 %; Lymphocytes # (auto) 1.36 K/uL (1.2-3.4); Lymphocytes % (auto) 23.3 %; Mean Corpuscular Hemoglobin 24.2 pg (25.0-34.0); Mean Corpuscular Volume 75.8 fL (80.0-100.0); Monocytes # (auto) 0.59 K/uL (0.24-0.82); Monocytes % (auto) 10.1 %; Neutrophils % (auto) 63.5 %; Platelet Count 253 K/uL (130-400); RDW Coefficient of Variation 13.2 % (11.5-14.5); RDW Standard Deviation 35.9 fL (36.4-46.3); Red Blood Count 4.87 M/uL (4.63-6.08); White Blood Count 5.83 K/ul (4.8-10.8)
[2022-04-04 05:05] LABS: Albumin Globulin Ratio 1.1 (0.9-2); Albumin Level 3.8 gm/dl (3.4-5.0); BUN Creatinine Ratio 10.7 (10-20); Bilirubin,Total 0.4 mg/dl (0.2-1.0); Calcium 9.5 mg/dl (8.5-10.1); Creatinine Clr Calc Pharmacy 91.3 ml/min; Est GFR (African American) 88.9 ml/min; Est GFR (Non-African American) 76.7 ml/min; Globulin 3.4 gm/dl (2.5-4.0); Potassium 3.8 mmol/L (3.5-5.1); Total Protein 7.2 gm/dl (6.0-8.3)
[2022-04-04] MEDS: LACTATED RINGER'S 1,000 ML IV SCH ×2 (07:31→20:28)
--- NOTE | 2022-04-04 07:57 | Critical Care Progress Note ---
Date of Service April 04, 2022 Assessment & Plan (1) Foreign body in stomach: (2) Self-harming behavior: (3) Foreign body in urethra: (4) Schizophrenia: (5) Depression: (6) Anxiety: (7) Microcytic anemia: (8) DVT prophylaxis: (9) Bilateral calf pain: (10) Hypokalemia: Plan Reason Critically Ill: 22 YOM prisoner with multiple admissions for foreign object ingestion and placement into urethra. Admitted to ICU for airway monitoring with foreign body aspiration to hypopharynx. Patient is HD #7 and POD #6 from gastrostomy with foreign body removals, POD #6 from cystoscopy with foreign body removal, S/P EGD with foreign body removal 03/28 Neuro - Self Harming behavior, schizophrenia, anxiety, depression, HX of SI, acute pain - Continue Remeron as this is SoluTab - Dorr likely be able to be restarted in AM following procedure or when able to take PO - Dorr level 03/30/22- 0.4 - Heavy metal screening has been ordered by primary service for multiple hx of ingestion of such objects - Medical restraints will be employed to prevent removal or tampering of medical devices soft mits to prevent grabbing objects to ingest. 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 Orantes - Airway watch for migration, perforation, obstruction GI - S/P gastrostomy and EGD for foreign body removal, foreign bodies remaining - Daily KUB following objects - Objects in stomach and throughout intestines - 2 linear metallic foreign bodies within the stomach. - Numerous radiopaque foreign bodies remonstrated RENAL/LYTES - No acute needs As above follow electrolytes - Urinary retention, self removal of catheter - reportedly unable to catheterize patient secondary to resistance - Urology following - recommendations for Hernandez until discharge with voiding trial prior to discharge ENDO - No acute needs - Glucose goal <180mg/dl HEME - Microcytic anemia -Monitor H&H ID -No acute needs --Prophylaxis VTE: SCDs GI: None Lines: Peripheral Diet: Regular diet Plan: In/out: -200, urine output 1300 mL Continue with Tylenol and morphine for pain. Currently getting LR IV. H&H is stable Has been taking p.o. medications. Patient does have significant psychiatric history and malingering. But we need to keep in mind the patient does have foreign bodies in the abdomen as well and would need to keep a close eye for any signs of acute abdomen. So far the CT neck, chest, abdomen and pelvis does not show any acute issues. KUB from today does not show any free air Magnesium is being replaced Patient is hemodynamically stable to be sent out of the ICU Case was discussed with Dr. Jones Please note the above document was generated using voice recognition software. It may contain grammatical, syntax or spelling errors.Any formal questions or concerns about the content, text or information contained within the body of this dictation should be directly addressed to the provider for clarification. Admission and Anticipated Discharge Date Admission Date: March 29, 2022 Subjective Patient seen and examined at bedside. Patient was complaining of left flank pain. Denies any nausea No chest pain, no shortness of breath Review of Systems Review of Systems: All systems reviewed & are unremarkable except as noted in Subjective Physical Exam Physical Exam: Constitutional: No acute distress HEENT: EOMI, PERRLA Respiratory system: Good air entry bilaterally, no wheeze, no rhonchi, no crackles CVS: S1-S2 positive, no murmurs or gallops Abdomen: Soft,nondistended, positive bowel sounds x4, incision site clean, left upper quadrant, left lower quadrant as well as mild suprapubic tenderness, no rebound Extremities: +2 pulses bilaterally radialis/ dorsalis pedis, no cyanosis, no edema Neuro: Awake alert oriented x3 Psych: Normal mood and affect G/U: Positive Hernandez Skin: no rashes, warm and dry Lymphatic: no cervical or axillary lymphadenopathy Results & Data Results & Data ([facility] [place]) Vital Signs (Past 12 Hours) Vital Signs Temp Pulse Resp BP Pulse Ox Pulse Ox O2 Del Method 04/04/22 06:30 59 L 10 L 100 04/04/22 06:30 107/61 04/04/22 06:15 63 5 L 100 04/04/22 06:00 64 14 100 04/04/22 06:00 109/62 04/04/22 05:45 87 16 100 04/04/22 05:30 36.4 C L 62 23 98 04/04/22 05:30 96/65 L 04/04/22 05:15 59 L 13 100 04/04/22 05:01 91/65 L 04/04/22 05:01 58 L 15 04/04/22 05:00 59 L 15 100 04/04/22 04:45 60 15 99 04/04/22 04:30 69 18 99 04/04/22 04:30 118/74 04/04/22 04:15 59 L 15 98 04/04/22 04:00 61 19 99 04/04/22 04:00 105/62 04/04/22 03:45 63 17 98 04/04/22 03:30 63 16 98 04/04/22 03:30 108/62 04/04/22 03:15 62 17 99 04/04/22 03:00 64 13 98 04/04/22 03:00 119/67 04/04/22 02:45 71 19 97 04/04/22 02:30 67 16 98 04/04/22 02:30 112/65 04/04/22 02:15 67 17 97 04/04/22 02:00 67 11 L 97 04/04/22 02:00 129/72 04/04/22 01:45 71 16 98 04/04/22 01:30 67 16 98 04/04/22 01:30 111/69 04/04/22 01:15 66 12 98 04/04/22 01:00 66 15 96 04/04/22 01:00 122/70 04/04/22 00:45 71 17 96 04/04/22 03:37 82 04/04/22 01:00 97 04/04/22 00:30 76 15 96 04/04/22 00:30 111/62 04/04/22 00:15 75 18 97 04/04/22 00:00 73 16 97 04/04/22 00:00 108/57 L 04/03/22 23:45 75 14 98 04/03/22 23:30 89 17 97 04/03/22 23:30 120/61 04/03/22 23:15 83 17 97 04/03/22 23:00 85 10 L 98 04/03/22 23:00 124/72 04/03/22 22:45 78 16 97 04/03/22 22:30 88 17 96 04/03/22 22:30 111/57 L 04/03/22 22:15 98 H 19 96 04/03/22 22:00 86 17 96 04/03/22 22:00 87/67 L 04/03/22 21:46 112/73 04/03/22 21:46 16 04/03/22 21:45 119 H 11 L 95 04/03/22 21:30 94 H 7 L 86 L 04/03/22 21:28 92 H 14 04/03/22 21:00 117 H 16 98 04/03/22 21:00 131/80 04/03/22 20:45 106 H 16 96 04/03/22 20:45 118/61 04/03/22 20:30 95/59 L 04/03/22 22:58 36.9 C 04/03/22 20:30 94 H 19 94 04/03/22 20:26 117/70 04/03/22 20:15 85 16 95 04/03/22 20:15 91/76 L 04/03/22 20:09 121/69 04/03/22 20:09 106 H 17 97 04/03/22 20:02 112 H 16 04/03/22 20:02 92/69 L 04/03/22 20:00 102 H 94 04/03/22 20:00 Room Air O2 Del Method 04/04/22 06:30 04/04/22 06:30 04/04/22 06:15 04/04/22 06:00 04/04/22 06:00 04/04/22 05:45 04/04/22 05:30 04/04/22 05:30 04/04/22 05:15 04/04/22 05:01 04/04/22 05:01 04/04/22 05:00 04/04/22 04:45 04/04/22 04:30 04/04/22 04:30 04/04/22 04:15 04/04/22 04:00 04/04/22 04:00 04/04/22 03:45 04/04/22 03:30 04/04/22 03:30 04/04/22 03:15 04/04/22 03:00 04/04/22 03:00 04/04/22 02:45 04/04/22 02:30 04/04/22 02:30 04/04/22 02:15 04/04/22 02:00 04/04/22 02:00 04/04/22 01:45 04/04/22 01:30 04/04/22 01:30 04/04/22 01:15 04/04/22 01:00 04/04/22 01:00 04/04/22 00:45 04/04/22 03:37 04/04/22 01:00 Room Air 04/04/22 00:30 04/04/22 00:30 04/04/22 00:15 04/04/22 00:00 04/04/22 00:00 04/03/22 23:45 04/03/22 23:30 04/03/22 23:30 04/03/22 23:15 04/03/22 23:00 04/03/22 23:00 04/03/22 22:45 04/03/22 22:30 04/03/22 22:30 04/03/22 22:15 04/03/22 22:00 04/03/22 22:00 04/03/22 21:46 04/03/22 21:46 04/03/22 21:45 04/03/22 21:30 04/03/22 21:28 04/03/22 21:00 04/03/22 21:00 04/03/22 20:45 04/03/22 20:45 04/03/22 20:30 04/03/22 22:58 04/03/22 20:30 04/03/22 20:26 04/03/22 20:15 04/03/22 20:15 04/03/22 20:09 04/03/22 20:09 04/03/22 20:02 04/03/22 20:02 04/03/22 20:00 04/03/22 20:00 Laboratory Results 04/04/22 04:11 04/04/22 04:11 Coding Level of Care Code 54492 Subseq Hosp Care Lvl 2 Diagnoses Foreign body in stomach T18.2XXA Self-harming behavior Foreign body in urethra T19.0XXA Schizophrenia F20.0 Schizophrenia type: paranoid schizophrenia Depression F32.A Depression Type: unspecified Anxiety F41.9 Microcytic anemia D50.9 DVT prophylaxis Z29.9 Bilateral calf pain M79.661; M79.662 Hypokalemia E87.6 (1) Depression Depression Type: unspecified Qualified Code(s): F32.A - Depression, unspecified (2) Schizophrenia Schizophrenia type: paranoid schizophrenia Qualified Code(s): F20.0 - Paranoid schizophrenia
[2022-04-04] MEDS: ACETAMINOPHEN 1,000 MG/100 ML VIAL IV PRN (08:34)
[2022-04-04 08:54] LABS: Magnesium 1.6 mg/dl (1.7-2.4); Phosphorus 4.9 mg/dl (2.5-4.9)
[2022-04-04] MEDS: ONDANSETRON INJ 2 MG/ML 2 ML VIAL IV PRN (09:23)
[2022-04-04] MEDS: LITHIUM CARBONATE 300 MG TAB PO SCH ×2 (09:45→20:25)
[2022-04-04] MEDS: MAGNESIUM SULFATE / D5W 1 GM/100 ML BAG IV SCH ×2 (09:46→12:26)
--- NOTE | 2022-04-04 10:08 | XRay Report ---
KUB CLINICAL HISTORY: Foreign body ingestion. FINDINGS: An AP, portable, supine abdominal radiograph is compared to abdominal radiographs and CT di ctated 04/03/2022. Numerous wires project over the upper abdomen. There is a nonobstructed abdominal b owel gas pattern. Residual enteric contrast is seen throughout the colon. No evidence of intraperiton eal free air is seen on this supine image. Suture material is seen below the left hemidiaphragm. Ther e are at least 13 radiodense foreign bodies scattered throughout the abdomen. The majority project ov er the left upper quadrant and the right midabdomen. The bony structures appear intact. IMPRESSION: Numerous foreign bodies as above. Electronically signed by: Henrique Slaughter M.D. 04/04/2022 10:06 AM
--- NOTE | 2022-04-04 10:13 | Communication Note ---
Date of Service: April 04, 2022 GI brief communication note: at this time given the patient's recent gastric surgery as well as recent foreign body removal in the hypopharynx and multiple foreign body removals from the stomach prior to these, would recommend that he be transferred to a tertiary care center for foreign body removal as they have trauma surgery/thoracic surgery for backup. I defer EGD due to the high risk at this time. Strongly recommend transfer. Luc Villalobos MD Gastroenterology
--- NOTE | 2022-04-04 11:01 | Hospitalist Progress Note ---
Date of Service April 04, 2022 Assessment & Plan (1) Foreign body in stomach: Plan: Intentional ingestion of multiple FBs--> frequent admissions and ER visits for such in the last 6 months Underwent EGD 03/[address] Anderson, [facility]. Normal esophagus. 3 cm piece of gurpreet stic tied to a piece of headphones and a washer. This was unable to be extracted through upper esophageal sphincter due to wedging in the esophagus. Thus - s/p exploratory laparotomy and gastrotomy with foreign body removal (2 pieces been tied together with plastic washers) 03/27/2022 - Isaias Paiz MD. Patient self removed NGT overnight of 03/27 into 03/28, replacement deferred by surgery. Also, of note, there are reports that staff could not locate the safety pin used to hold the NGT to his gown. Unfortunately had a retained foreign body after 03/27 gastrotomy procedure. Patient had 2nd EGD on 03/[address] Duval of [facility]. 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 s/p upper GI series on 03/31- no leak from stomach, ?retained foreign bodies x 2. KUB 04/01, again shows button-like foreign bodies and a total of 4 foreign bodies-it seems these are new in the last 2 days compared to previous imaging on 03/28-suspicion that he ingested further foreign body since the last EGD. The patient did admit to swallowing paperclips and buttons (metallic snaps from hospital gown) after his surgery. KUB 04/02 now with 10 FBs mostly in large bowel-I do not suspect new FBs ingested in the last day but likely just some of these were bunched together on previous xray or obscured by contrast from previous UGI study Healing well post-op from ex lap His diet was advanced to low fiber on 04/02, but then had 1 episode of vomiting which resulted in metallic foreign body getting stuck in the throat He was transferred to the ICU for observation for airway protection and ENT removed foreign body in the throat under direct laryngoscopy on the morning of 04/03 He then had an episode of emesis with either hemoptysis versus hematemesis on the afternoon of 04/03 and again noted on x-ray to have recurrent metallic foreign body in the throat CT soft tissues neck, chest, and abdomen/pelvis performed-fortunately throat foreign body was gone-suspect he swallowed it, and multiple foreign bodies remain in the stomach and bowels. No evidence of perforation -on 04/03, Attempts to get patient EGD to remove the residual metallic foreign bodies persisting in the stomach were unsuccessful both with local GI and calling to [facility] (on divert, no beds available), [facility] (GI and triage medical social consultant did not feel transfer was necessary and that general GI could perform the endoscopy), and [facility] GI felt he would be better served at [facility]. Penitentiary Captain contacted by truck guard and does not approve transfer to [facility] unless it is a life or situation. At this time, he is stable and it is not an emergency to transfer him. 04/04, reached out to [facility] and spoke with GI Dr. Burdick who also did not feel a transfer was necessary and that his EGD would not be considered high risk and could be performed at our facility by a willing GI doctor. Discussed with Dr. Villalobos who also d/w Dr. Shrestha (line installation supervisor [facility]) who remain in agreement to not scope here at this time. Dr. Villalobos now thinks can continue conservative measures, await for FBs to pass on own, serial xrays. -Check KUB in the morning -heavy metal screen pending -The intermediate has dictated since 04/01 that the patient now remain in three-point restraints, he has a spit mask in place, and they have asked for soft mitts to be placed on both hands to prevent him from continuing to ingest more foreign bodies. -can adv diet to clear liquids -Continue LR at 75 MLS per hour -restart p.o. meds -GI at [facility] recommended against giving Reglan or other motility agents -consulted Psychiatry for assistance with management and understanding of ongoing ingestion behaviors (2) Self-harming behavior: Plan: history of such - numerous occasions with various objects, often by way of ingestion as well as insertion of objects in the urethra. Unclear if this is due to psychiatric condition or malingering No foreign material, detachable material, small pieces/parts should be in arms raised with patient at any time. This includes drawstrings to close/waistbands, EKG stickers, and any loose material. Patient has a recurrent history of quickly ingesting or placing foreign materials into orifices. (3) Foreign body in urethra: Plan: Foreign body in urethra - 03/25 and 03/27 - removal on 2 occasions by [facility] in the OR via cystoscopy- Appreciate urology consultation He then poked a hole in his Hernandez catheter and deflated the balloon and pulled it out himself overnight on 03/31 No evidence of trauma to the penis on exam on 04/01 Received ceftriaxone 1 g IV daily empirically x 7 days recent urine cx negative Had presumed urinary retention of 1000mL on bladder scan on 04/02 AM and unsuccessful attempt at Hernandez placement as per RN-then pt voided large amount on own without difficulty-question if he is malingering with regards to retention but certainly could have reason to have retention due to multiple FB insertions, inflammation, stricture, etc. Pelvic xray 04/02 no radio-opaque FB Hernandez catheter replaced on 04/02-maintain for now -Again, taking precautions as above to avoid recurrent placement of foreign body in the urethra (4) Schizophrenia: Plan: Unclear if this is a true diagnosis Penitentiary records only have a diagnosis of antisocial personality disorder Typically is on lithium BID - level nontoxic range this am, Paxil, Remeron, and Haldol Earlier in his stay, increased haldol dose of 10mg HS has resolved the hearing of voices. Appreciate Psych consult (5) Depression: Plan: meds as above (6) Anxiety: Plan: meds as above (7) Microcytic anemia: Plan: Fe studies wnl could have thalassemia could have high lead levels HEAVY METAL SCREEN PENDING repeat cbc am (8) Bilateral calf pain: Plan: could be 2nd to low magnesium- replaced with IV magnesium and had improvement Lower extremity Dopplers negative for DVT (9) Hypokalemia: Plan: resolved Follow BMP (10) DVT prophylaxis: Plan: Hold Lovenox for bleeding that is scant from throat most liekly as per my d/w ENT Plan Disposition-intermediate physician requested that he stay in the hospital until all foreign bodies have passed. Continued stay at [facility], but low threshold to transfer if needs urgent repeat GI procedure Admission and Anticipated Discharge Date Admission Date: March 29, 2022 Subjective Pt reports ongoing pain since last night in [facility]Q. No BM so far this AM when I saw him. Reports he is still "spitting up blood" and shows me a scant amount of pink discoloration stained on his blanket where he spit saliva with blood. I discussed his care with his Surgeon about possibility of doing an EGD and Surgeon does not have privileges to do EGD. I then once again contacted [facility] to attempt transfer and spoke with Dr. Burdick of GI who said he did not accept the patient in transfer as he thought an EGD could be performed at our facility by a general GI doctor who felt comfortable doing so. Also, there were no available beds there regardless. I also asked his opinion on using Reglan and he recommended against that. Pt asks about being transferred to [place] and I told him that was not an option (as per previous conversation yesterday with intermediate staff). He also asks if he can eat regular food. Tele with [facility] Review of Systems Review of Systems: All systems reviewed & are unremarkable except as noted in HPI & below Physical Exam Physical Exam: gen - NAD, lying comfortably in bed mouth - mmm, no foreign body noted in posterior oropharynx, no bleeding noted heart - RRR, s1 s2, no murmur lungs - CTA b/l abd - BS+, +TTP left side of abdomen without guarding or rebound, abd wall incision clean, soft, ND ext - no edema psych - not responding to internal stimuli, awake, alert, normal conversational speech, flat affect Results & Data Results & Data ([facility]) Vital Signs (Past 12 Hours) Vital Signs Temp Pulse Resp BP Pulse Ox Pulse Ox O2 Del Method 04/04/22 10:30 101 H 10 L 94 04/04/22 10:30 111/60 04/04/22 10:00 64 5 L 100 04/04/22 10:00 104/48 L 04/04/22 09:31 108 H 13 04/04/22 09:31 105/52 L 04/04/22 09:30 101 H 13 99 04/04/22 09:00 79 13 100 04/04/22 09:00 113/71 04/04/22 08:47 85 7 L 100 04/04/22 08:47 102/65 04/04/22 08:30 58 L 17 100 04/04/22 08:00 67 13 99 04/04/22 08:00 98/60 L 04/04/22 07:30 89 18 94 04/04/22 07:30 104/41 L 04/04/22 07:00 63 14 100 04/04/22 07:00 104/60 04/04/22 08:00 69 04/04/22 08:00 Room Air 04/04/22 08:00 97 04/04/22 08:00 36.8 C 04/04/22 06:30 59 L 10 L 100 04/04/22 06:30 107/61 04/04/22 06:15 63 5 L 100 04/04/22 06:00 64 14 100 04/04/22 06:00 109/62 04/04/22 05:45 87 16 100 04/04/22 05:30 36.4 C L 62 23 98 04/04/22 05:30 96/65 L 04/04/22 05:15 59 L 13 100 04/04/22 05:01 91/65 L 04/04/22 05:01 58 L 15 04/04/22 05:00 59 L 15 100 04/04/22 04:45 60 15 99 04/04/22 04:30 69 18 99 04/04/22 04:30 118/74 04/04/22 04:15 59 L 15 98 04/04/22 04:00 61 19 99 04/04/22 04:00 105/62 04/04/22 03:45 63 17 98 04/04/22 03:30 63 16 98 04/04/22 03:30 108/62 04/04/22 03:15 62 17 99 04/04/22 03:00 64 13 98 04/04/22 03:00 119/67 04/04/22 02:45 71 19 97 04/04/22 02:30 67 16 98 04/04/22 02:30 112/65 04/04/22 02:15 67 17 97 04/04/22 02:00 67 11 L 97 04/04/22 02:00 129/72 04/04/22 01:45 71 16 98 04/04/22 01:30 67 16 98 04/04/22 01:30 111/69 04/04/22 01:15 66 12 98 04/04/22 01:00 66 15 96 04/04/22 01:00 122/70 04/04/22 00:45 71 17 96 04/04/22 03:37 82 04/04/22 01:00 97 04/04/22 00:30 76 15 96 04/04/22 00:30 111/62 04/04/22 00:15 75 18 97 04/04/22 00:00 73 16 97 04/04/22 00:00 108/57 L 04/03/22 23:45 75 14 98 04/03/22 23:30 89 17 97 04/03/22 23:30 120/61 04/03/22 23:15 83 17 97 O2 Del Method 04/04/22 10:30 04/04/22 10:30 04/04/22 10:00 04/04/22 10:00 04/04/22 09:31 04/04/22 09:31 04/04/22 09:30 04/04/22 09:00 04/04/22 09:00 04/04/22 08:47 04/04/22 08:47 04/04/22 08:30 04/04/22 08:00 04/04/22 08:00 04/04/22 07:30 04/04/22 07:30 04/04/22 07:00 04/04/22 07:00 04/04/22 08:00 04/04/22 08:00 04/04/22 08:00 Room Air 04/04/22 08:00 04/04/22 06:30 04/04/22 06:30 04/04/22 06:15 04/04/22 06:00 04/04/22 06:00 04/04/22 05:45 04/04/22 05:30 04/04/22 05:30 04/04/22 05:15 04/04/22 05:01 04/04/22 05:01 04/04/22 05:00 04/04/22 04:45 04/04/22 04:30 04/04/22 04:30 04/04/22 04:15 04/04/22 04:00 04/04/22 04:00 04/04/22 03:45 04/04/22 03:30 04/04/22 03:30 04/04/22 03:15 04/04/22 03:00 04/04/22 03:00 04/04/22 02:45 04/04/22 02:30 04/04/22 02:30 04/04/22 02:15 04/04/22 02:00 04/04/22 02:00 04/04/22 01:45 04/04/22 01:30 04/04/22 01:30 04/04/22 01:15 04/04/22 01:00 04/04/22 01:00 04/04/22 00:45 04/04/22 03:37 04/04/22 01:00 Room Air 04/04/22 00:30 04/04/22 00:30 04/04/22 00:15 04/04/22 00:00 04/04/22 00:00 04/03/22 23:45 04/03/22 23:30 04/03/22 23:30 04/03/22 23:15 Laboratory Results 04/04/22 04/04/22 04/04/22 Range/Units 12:13 04:11 04:11 WBC (4.8-10.8) K/ul RBC (4.63-6.08) M/uL Hgb (14.0-18.0) g/dl Hct (40.1-51.0) % MCV (80.0-100.0) fL MCH (25.0-34.0) pg MCHC (32.0-36.0) g/dL RDW Std Deviation (36.4-46.3) fL RDW Coeff of Bassem (11.5-14.5) % Plt Count (130-400) K/uL MPV (9.4-12.4) fL Immature Gran % (Auto) % Neut % (Auto) % Lymph % (Auto) % [place] % (Auto) % Eos % (Auto) % Baso % (Auto) % Neut # (Auto) (1.4-6.5) K/uL Lymph # (Auto) (1.2-3.4) K/uL [place] # (Auto) (0.24-0.82) K/uL Eos # (Auto) (0-0.50) K/uL Baso # (Auto) (0-0.2) K/uL Immature Gran # (Auto) (0.00-0.02) K/uL Sodium 138 (136-145) mmol/L Potassium 3.8 (3.5-5.1) mmol/L Chloride 102 (98-107) mmol/L Carbon Dioxide 28 (21-32) mmol/L Anion Gap 8 (3-11) BUN 14 (6-23) mg/dl Creatinine 1.31 (0.6-1.4) mg/dl Est Cr Clr Drug Dosing 91.3 ml/min Est GFR ( Amer) 88.9 ml/min Est GFR (Non-Af Amer) 76.7 ml/min BUN/Creatinine Ratio 10.7 (10-20) Glucose 79 (70-99(Fasting)) mg/dl POC Glucose 104 H (70-99) mg/dl Calcium 9.5 (8.5-10.1) mg/dl Phosphorus 4.9 (2.5-4.9) mg/dl Magnesium 1.6 L (1.7-2.4) mg/dl Total Bilirubin 0.4 (0.2-1.0) mg/dl AST 29 (13-39) U/L ALT 25 (7-52) U/L Alkaline Phosphatase 58 (34-104) U/L Total Protein 7.2 (6.0-8.3) gm/dl Albumin 3.8 (3.4-5.0) gm/dl Globulin 3.4 (2.5-4.0) gm/dl Albumin/Globulin Ratio 1.1 (0.9-2) 04/04/22 04/03/22 Range/Units 04:11 23:52 WBC 5.83 (4.8-10.8) K/ul RBC 4.87 (4.63-6.08) M/uL Hgb 11.8 L (14.0-18.0) g/dl Hct 36.9 L (40.1-51.0) % MCV 75.8 L (80.0-100.0) fL MCH 24.2 L (25.0-34.0) pg MCHC 32.0 (32.0-36.0) g/dL RDW Std Deviation 35.9 L (36.4-46.3) fL RDW Coeff of Bassem 13.2 (11.5-14.5) % Plt Count 253 (130-400) K/uL MPV 10.0 (9.4-12.4) fL Immature Gran % (Auto) 0.3 % Neut % (Auto) 63.5 % Lymph % (Auto) 23.3 % [place] % (Auto) 10.1 % Eos % (Auto) 2.6 % Baso % (Auto) 0.2 % Neut # (Auto) 3.70 (1.4-6.5) K/uL Lymph # (Auto) 1.36 (1.2-3.4) K/uL [place] # (Auto) 0.59 (0.24-0.82) K/uL Eos # (Auto) 0.15 (0-0.50) K/uL Baso # (Auto) 0.01 (0-0.2) K/uL Immature Gran # (Auto) 0.02 (0.00-0.02) K/uL Sodium (136-145) mmol/L Potassium (3.5-5.1) mmol/L Chloride (98-107) mmol/L Carbon Dioxide (21-32) mmol/L Anion Gap (3-11) BUN (6-23) mg/dl Creatinine (0.6-1.4) mg/dl Est Cr Clr Drug Dosing ml/min Est GFR ( Amer) ml/min Est GFR (Non-Af Amer) ml/min BUN/Creatinine Ratio (10-20) Glucose (70-99(Fasting)) mg/dl POC Glucose 84 (70-99) mg/dl Calcium (8.5-10.1) mg/dl Phosphorus (2.5-4.9) mg/dl Magnesium (1.7-2.4) mg/dl Total Bilirubin (0.2-1.0) mg/dl AST (13-39) U/L ALT (7-52) U/L Alkaline Phosphatase (34-104) U/L Total Protein (6.0-8.3) gm/dl Albumin (3.4-5.0) gm/dl Globulin (2.5-4.0) gm/dl Albumin/Globulin Ratio (0.9-2) Diagnostic Findings Xray image personally reviewed by me and agree with the following report: KUB X-Ray 04/04/22 08:00 KUB CLINICAL HISTORY: Foreign body ingestion. FINDINGS: An AP, portable, supine abdominal radiograph is compared to abdominal radiographs and CT dictated 04/03/2022. Numerous wires project over the upper abdomen. There is a nonobstructed abdominal bowel gas pattern. Residual enteric contrast is seen throughout the colon. No evidence of intraperitoneal free air is seen on this supine image. Suture material is seen below the left hemidiaphragm. There are at least 13 radiodense foreign bodies scattered throughout the abdomen. The majority project over the left upper quadrant and the right midabdomen. The bony structures appear intact. IMPRESSION: Numerous foreign bodies as above. Electronically signed by: Henrique Slaughter M.D. 04/04/2022 10:06 AM PG Care Time/CCT Total # of Minutes Spent Total Time Spent with Patient: Total time spent is greater than 50% in coordination of care (as documented) at patient's floor/unit and/or counseling patient: Prolonged Care Time Prolonged Care Time: Yes Total Prolonged Care Time: 75 I spent 75 minutes of additional prolonged service time in the direct care of this patient and in discussing his care with outside facility and other specialists Coding Level of Care Code 64239 Subseq Hosp Care Lvl 3 (25 - SIGNIFICANT, SEPARATELY IDENTIFIABLE ) Diagnoses Foreign body in stomach T18.2XXA Self-harming behavior Foreign body in urethra T19.0XXA Schizophrenia F20.0 Schizophrenia type: paranoid schizophrenia Depression F32.A Depression Type: unspecified Anxiety F41.9 Microcytic anemia D50.9 Bilateral calf pain M79.661; M79.662 Hypokalemia E87.6 DVT prophylaxis Z29.9 Additional Codes Prolonged Care Time - Prolonged Care Time: Yes ([id number]) (1) Depression Depression Type: unspecified Qualified Code(s): F32.A - Depression, unspecified (2) Schizophrenia Schizophrenia type: paranoid schizophrenia Qualified Code(s): F20.0 - Paranoid schizophrenia
--- NOTE | 2022-04-04 12:00 | Communication Note ---
Date of Service: April 04, 2022 GI follow up note: primary team has been unable to transfer patient to tertiary center at this time. Patient swallowed paper clips and buttons few days ago. KUB shows multiple foreign bodies in the GI tract. Recommendations: --would monitor conservatively and expectantly for the objects to pass as patient is about a week post op from gastric surgery and this is not emergent. --obtain serial KUBs daily or every two days until objects pass --supportive care, IVFs Luc Villalobos MD Gastroenterology
--- NOTE | 2022-04-04 12:56 | Psychiatric Consultation ---
Date of Consultation April 04, 2022 Impression / Recommendations Impression 22 yo inmate at [facility] with repeated self-harm attempts via ingestion and insertion of foreign bodies into urethra. Presentation consistent with antisocial PD as well as likely malingering with secondary gain of hospital admission as well as possible cluster B/self-harm component as means of treating distress from incarceration/limited coping skills/feeling unsupported by his family. Unclear if schizophrenia is part of the picture, presentation is not consistent with negative symptoms, cognitive changes we would typically expect though odd/intense level of self-harm behaviors (putting in urethra) and his description of hearing a voices nightly could suggest a mild schizophrenia spectrum illness. He endorses periods of SI but presents with bright affect, future oriented and very talkative/engaged inconsistent with what would be expected for a severe depression which also suggests possible malingering. Ok to continue haldol at 10mg qhs or increase to 15mg qhs for further management of voices if this becomes an issue again. QTc from EKG on 04/03/22 reviewed. Agree with Lucama, paxil, mirtazapine as ordered. [facility] at [facility] to continue with management/lab monitoring/secure setting at [facility] if he develops SI again (denies currently and on 24/7 observation by guards at bedside). Self-harm behaviors cannot be fixed with medication, treatment relies on longer-term therapy to develop better coping skills/manage distress tolerance/address better ways to cope with interpersonal conflict. Would attempt to minimize secondary gain with focus on as a brief a hospitalization as possible for medical stabilization and agree with preventing access to any dangerous items/items that could be ingested, using safe tray/finger foods when able to eat, and guards providing 24/7 monitoring with eyes on at all times to avoid having him ingest other items. Could also consider limited other potentially rewarding activities such as TV access, snacks, etc or implementing behavioral plan where in there is loss of privileges, like TV, if another ingestion occurs. (1) Self-harming behavior: (2) Malingering: (3) Auditory hallucination: (4) Foreign body ingestion: (5) Depression: Depression Type: unspecified Qualified Code(s): F32.A - Depression, unspecified Plan -Haldol 10mg qhs po or could increase to 15mg qhs po if voices worsen -Would use haldol 5mg IM and benadryl 50mg IM and ativan 2mg IM for behavioral emergency and monitor for QTc changes -Can continue to follow with psychiatry once he returns to the [facility], would have him return to the [facility] on suicide precautions when he is medically stable for transport until they re-assess his safety in that setting Psych History Identifying Data 22 yo man, inmate at [facility] with history of antisocial personality disorder, schizophrenia, depression and long history of repeated ingestions/inserted items in his urethra admitted medically since 03/24/22 for ingestions and insertion in urethra. Psychiatry consulted for recommendations for behavioral management/medications. Chief Complaint "The voices tell me to hurt myself or other people so I swallow stuff". History of Present Illness Stefan has a long history of repeated hospitalizations for foreign body ingestions and placing items in his urethra. He also tries to sneak items into his nostrils or disassemble medical equipment, like his ruiz catheter, to find items he can ingest during hospitalization. He's been NPO for the last few days due to ingestion events. Currently is able to take po pills and has additional safety measures in place (soft mitts) to reduce change for further ingestions. States he started ingesting things a few years ago as a form of self-harm, prior to that would cut himself before going to [facility]. Recently he says he's felt more suicidal and will hear voices that tell him to hurt herself or others so he will ingest things when he hears the voices. States he feels less pain when he hears the voices thus he doesn't find putting things in his urethra to be that uncomfortable. States he doesn't care what happens to his body as he'll be in [facility] a long time and also doesn't want to act directly to cause his own as this "feels morally not right" to him. Therefore he figures if he dies by internal bleeding via swallowing something it would be a good way to . However, also future oriented on his goal of transferring to a new [facility]. Currently [facility] pod [facility] and says he has therapeutic and coping skills groups he attends during the day. has tried various antipsychotics in the past including olanzapine and risperidal but finds haldol most helpful. Wants a higher dose of haldol and states he doesn't care about side effects including tardive dyskinesia as "it's better than hearing the voices". Haldol had been increased during this admission from 5 mg qhs to 10mg qhs which he told hospitalist provider at the time had resolved the voices. Describes voice as that of an unrecognizeable "deep" male voice". Medications have been held for last few days due to NPO. Allergies Allergy/AdvReac Type Severity Reaction Status Date / Time No Known Allergies Allergy Verified 03/25/22 00:50 Home Medications Medication Instructions Recorded Confirmed Type haloperidol 10 mg tablet 10 mg PO HS 03/25/22 03/25/22 History haloperidol 5 mg tablet 5 mg PO HS 03/25/22 03/25/22 History lithium carbonate 300 mg capsule 300 mg PO BID 03/25/22 03/25/22 History mirtazapine 45 mg tablet 45 mg PO HS 03/25/22 03/25/22 History paroxetine HCl 10 mg tablet 10 mg PO HS 03/25/22 03/25/22 History paroxetine HCl 20 mg tablet 20 mg PO HS 03/25/22 03/25/22 History polyethylene glycol 3350 17 gram 17 g PO BID 03/25/22 03/25/22 History oral powder packet (Miralax) Personal History Beliefs That Will Affect Care: None Patient History Medical History Anxiety Depression Foreign body in urethra H/O swallowed foreign body Schizophrenia Suicidal ideation Surgical History H/O cystoscopy H/O esophagogastroduodenoscopy H/O exploratory laparotomy Social History Smoking Status: Never smoker Tobacco Type: Cigarettes Second Hand Exposure: No; Do You Dip or Chew Tobacco: No; Tobacco Cessation Education Requested by Patient: No Hx Alcohol Use: No Hx Substance Use: No Preferred Language: [place] Citizen Communication Ability: Effective Applications Administrator Required: No Beliefs That Will Affect Care: None marital status: Single Current Living Situation: Other Current Living Situation Comment: [facility]. How many Children do You have: 0 Other Information That Helps Us Care for You: No Feels Safe at Home: Yes Safety Concerns: Feels Safe At This Time Assistive Devices: None Physical Exam Psychiatric: Orientation: alert and oriented x 3 Apperance: appropriately dressed (soft mitts, spit shield on his head) and appropriately groomed Eye Contact: good eye contact Motor Behavior: no abnormal motor movements Speech: normal rate/rhythm/volume of speech Affect: euthymic affect Mood: + depressed mood; no anxious mood Thought Process: linear/logical thought process Thought Content: reality based without delusions Suicidal Thoughts: denies suicidal thoughts (experiences intermittent SI when he hears voice) Homicidal Thoughts: denies homicidal thoughts Hallucinations: no auditory hallucinations and no visual hallucinations Cognition: recent memory grossly intact, remote memory grossly intact, attention grossly intact and language grossly intact Estimated Intelligence: consistent with education level Insight: + fair insight Judgement: + fair judgement Vital Signs (Past 24 Hours): Last Vital Signs Temp 36.5 C 04/04/22 11:29 Pulse 89 04/04/22 11:29 Resp 16 04/04/22 11:29 BP 94/57 L 04/04/22 11:29 Pulse Ox 100 04/04/22 11:29 O2 Del Method 04/04/22 11:29 O2 Flow Rate 3 03/28/22 12:15 Review of Systems All systems reviewed & are unremarkable except as noted in HPI & below Results & Data (PSY) Medications Administered Haloperidol (Haloperidol 5 Mg Tab) 10 mg PO HS WAYNE Stop: 04/28/22 20:59 Last Admin: 04/03/22 21:59 Dose: Not Given Documented By: Admin: 04/02/22 21:46 Dose: Not Given Documented By: Admin: 04/01/22 20:56 Dose: 10 mg Documented By: Admin: 03/31/22 20:19 Dose: 10 mg Documented By: Admin: 03/30/22 19:36 Dose: 10 mg Documented By: Admin: 03/29/22 20:34 Dose: 10 mg Documented By: RES Lactated Ringer's (Lr) 1,000 mls @ 75 mls/hr IV .[id number] WAYNE Stop: 05/03/22 14:44 Last Admin: 04/04/22 07:31 Dose: 75 mls/hr Documented By: Infusion: 04/04/22 07:19 Dose: 75 mls/hr Documented By: Admin: 04/03/22 17:59 Dose: 75 mls/hr Documented By: CAM Acetaminophen (Ofirmev) 1,000 mg in 100 mls @ 400 mls/hr IV Q8H PRN PRN Reason: Mild pain Stop: 04/06/22 22:12 Last Infusion: 04/04/22 08:50 Dose: 0 mls/hr Documented By: Admin: 04/04/22 08:34 Dose: 400 mls/hr Documented By: Infusion: 04/04/22 00:31 Dose: 0 mls/hr Documented By: Admin: 04/03/22 23:33 Dose: 400 mls/hr Documented By: FLORENCIAG Magnesium Sulfate/Dextrose (Magnesium Sulfate / D5w) 1 gm in 100 mls @ 50 mls/hr IV Q2H WAYNE Stop: 04/04/22 12:59 Last Admin: 04/04/22 12:26 Dose: 50 mls/hr Documented By: Infusion: 04/04/22 11:46 Dose: 50 mls/hr Documented By: Admin: 04/04/22 09:46 Dose: 50 mls/hr Documented By: GPF Lucama Carbonate (Lucama Carbonate 300 Mg Tab) 300 mg PO BID WAYNE Stop: 04/25/22 20:59 Last Admin: 04/04/22 09:45 Dose: 300 mg Documented By: Admin: 04/03/22 21:59 Dose: Not Given Documented By: Admin: 04/02/22 21:46 Dose: Not Given Documented By: Admin: 04/02/22 07:50 Dose: 300 mg Documented By: Admin: 04/01/22 20:57 Dose: 300 mg Documented By: Admin: 04/01/22 08:03 Dose: 300 mg Documented By: Admin: 03/31/22 20:20 Dose: 300 mg Documented By: Admin: 03/31/22 08:34 Dose: 300 mg Documented By: Admin: 03/30/22 19:37 Dose: 300 mg Documented By: Admin: 03/30/22 09:09 Dose: 300 mg Documented By: [id number] Admin: 03/29/22 20:10 Dose: 300 mg Documented By: Admin: 03/29/22 08:52 Dose: 300 mg Documented By: [id number] Admin: 03/28/22 20:01 Dose: 300 mg Documented By: Admin: 03/28/22 09:07 Dose: Not Given Documented By: [id number] Admin: 03/27/22 21:38 Dose: 300 mg Documented By: Admin: 03/27/22 08:07 Dose: 300 mg Documented By: Admin: 03/26/22 23:10 Dose: 300 mg Documented By: URSULA Mirtazapine (Mirtazapine Soltab 15 Mg) 45 mg PO HS WAYNE; Protocol Stop: 04/26/22 20:59 Last Admin: 04/03/22 23:33 Dose: 45 mg Documented By: Admin: 04/03/22 21:59 Dose: Not Given Documented By: Admin: 04/02/22 21:58 Dose: 45 mg Documented By: Admin: 04/01/22 20:57 Dose: 45 mg Documented By: Admin: 03/31/22 20:20 Dose: 45 mg Documented By: Admin: 03/30/22 19:38 Dose: 45 mg Documented By: Admin: 03/29/22 20:09 Dose: 45 mg Documented By: Admin: 03/28/22 20:01 Dose: 45 mg Documented By: Admin: 03/27/22 21:39 Dose: 45 mg Documented By: URSULA Ondansetron HCl (Ondansetron Inj 2 Mg/Ml 2 Ml Vial) 4 mg IV Q6H PRN PRN Reason: Nausea And Vomiting Stop: 04/27/22 13:39 Last Admin: 04/04/22 09:23 Dose: 4 mg Documented By: Admin: 04/02/22 19:52 Dose: 4 mg Documented By: LUDY Oxycodone HCl (Oxycodone Hcl Ir 5 Mg Tab (Immediate Release)) 5 mg PO Q6H PRN PRN Reason: moderate-severe Pain Stop: 04/16/22 15:16 Last Admin: 04/04/22 09:46 Dose: 5 mg Documented By: GPF Paroxetine HCl (Paroxetine Hcl 20 Mg Tab) 30 mg PO HS WAYNE Stop: 04/24/22 02:44 Last Admin: 04/03/22 21:59 Dose: Not Given Documented By: Admin: 04/02/22 21:47 Dose: Not Given Documented By: Admin: 04/01/22 20:59 Dose: 30 mg Documented By: Admin: 03/31/22 20:31 Dose: 30 mg Documented By: Admin: 03/30/22 19:36 Dose: 30 mg Documented By: Admin: 03/29/22 20:10 Dose: 30 mg Documented By: Admin: 03/28/22 20:01 Dose: 30 mg Documented By: Admin: 03/27/22 21:38 Dose: 30 mg Documented By: Admin: 03/26/22 23:11 Dose: 30 mg Documented By: Admin: 03/25/22 20:14 Dose: 30 mg Documented By: Admin: 03/25/22 03:29 Dose: Not Given Documented By: RES Coding Level of Care Code 96356 Inpt Consult Level 3 Diagnoses Self-harming behavior Malingering Z76.5 Auditory hallucination R44.0 Foreign body ingestion T18.9XXA Depression F32.A Depression Type: unspecified Time Spent (min) 35
--- NOTE | 2022-04-04 13:08 | Gastroenterology Progress Note ---
Date of Service April 04, 2022 Assessment & Plan Admission and Anticipated Discharge Date Admission Date: March 29, 2022 Subjective Patient already seen by and in the care of Dr. Villalobos. Results & Data ([facility]) Vital Signs (Past 12 Hours) Vital Signs Temp Pulse Pulse Resp BP BP Pulse Ox 04/04/22 11:29 36.5 C 89 16 94/57 L 100 04/04/22 10:30 101 H 10 L 94 04/04/22 10:30 111/60 04/04/22 10:00 64 5 L 100 04/04/22 10:00 104/48 L 04/04/22 09:31 108 H 13 04/04/22 09:31 105/52 L 04/04/22 09:30 101 H 13 99 04/04/22 09:00 79 13 100 04/04/22 09:00 113/71 04/04/22 08:47 85 7 L 100 04/04/22 08:47 102/65 04/04/22 08:30 58 L 17 100 04/04/22 08:00 67 13 99 04/04/22 08:00 98/60 L 04/04/22 07:30 89 18 94 04/04/22 07:30 104/41 L 04/04/22 07:00 63 14 100 04/04/22 07:00 104/60 04/04/22 08:00 69 04/04/22 08:00 04/04/22 08:00 04/04/22 08:00 36.8 C 04/04/22 06:30 59 L 10 L 100 04/04/22 06:30 107/61 04/04/22 06:15 63 5 L 100 04/04/22 06:00 64 14 100 04/04/22 06:00 109/62 04/04/22 05:45 87 16 100 04/04/22 05:30 36.4 C L 62 23 98 04/04/22 05:30 96/65 L 04/04/22 05:15 59 L 13 100 04/04/22 05:01 91/65 L 04/04/22 05:01 58 L 15 04/04/22 05:00 59 L 15 100 04/04/22 04:45 60 15 99 04/04/22 04:30 69 18 99 04/04/22 04:30 118/74 04/04/22 04:15 59 L 15 98 04/04/22 04:00 61 19 99 04/04/22 04:00 105/62 04/04/22 03:45 63 17 98 04/04/22 03:30 63 16 98 04/04/22 03:30 108/62 04/04/22 03:15 62 17 99 04/04/22 03:00 64 13 98 04/04/22 03:00 119/67 04/04/22 02:45 71 19 97 04/04/22 02:30 67 16 98 04/04/22 02:30 112/65 04/04/22 02:15 67 17 97 04/04/22 02:00 67 11 L 97 04/04/22 02:00 129/72 04/04/22 01:45 71 16 98 04/04/22 01:30 67 16 98 04/04/22 01:30 111/69 04/04/22 01:15 66 12 98 04/04/22 03:37 82 Pulse Ox O2 Del Method O2 Del Method 04/04/22 11:29 Room Air 04/04/22 10:30 04/04/22 10:30 04/04/22 10:00 04/04/22 10:00 04/04/22 09:31 04/04/22 09:31 04/04/22 09:30 04/04/22 09:00 04/04/22 09:00 04/04/22 08:47 04/04/22 08:47 04/04/22 08:30 04/04/22 08:00 04/04/22 08:00 04/04/22 07:30 04/04/22 07:30 04/04/22 07:00 04/04/22 07:00 04/04/22 08:00 04/04/22 08:00 Room Air 04/04/22 08:00 97 Room Air 04/04/22 08:00 04/04/22 06:30 04/04/22 06:30 04/04/22 06:15 04/04/22 06:00 04/04/22 06:00 04/04/22 05:45 04/04/22 05:30 04/04/22 05:30 04/04/22 05:15 04/04/22 05:01 04/04/22 05:01 04/04/22 05:00 04/04/22 04:45 04/04/22 04:30 04/04/22 04:30 04/04/22 04:15 04/04/22 04:00 04/04/22 04:00 04/04/22 03:45 04/04/22 03:30 04/04/22 03:30 04/04/22 03:15 04/04/22 03:00 04/04/22 03:00 04/04/22 02:45 04/04/22 02:30 04/04/22 02:30 04/04/22 02:15 04/04/22 02:00 04/04/22 02:00 04/04/22 01:45 04/04/22 01:30 04/04/22 01:30 04/04/22 01:15 04/04/22 03:37
[2022-04-04] MEDS: haloperidoL 5 MG TAB PO SCH (20:24)
[2022-04-04] MEDS: PARoxetine HCL 20 MG TAB PO SCH (20:25)
[2022-04-04] MEDS: MIRTAZAPINE SOLTAB 15 MG PO SCH (20:25)
[2022-04-05 07:42] LABS: Hematocrit (blood only) 39.8 % (40.1-51.0); Hemoglobin 12.6 g/dl (14.0-18.0); Mean Corpuscular Hemoglobin 24.2 pg (25.0-34.0); Mean Corpuscular Hgb Conc 31.7 g/dL (32.0-36.0); Mean Corpuscular Volume 76.4 fL (80.0-100.0); Mean Platelet Volume 10.2 fL (9.4-12.4); Platelet Count 274 K/uL (130-400); RDW Coefficient of Variation 13.1 % (11.5-14.5); RDW Standard Deviation 36.1 fL (36.4-46.3); Red Blood Count 5.21 M/uL (4.63-6.08); White Blood Count 5.45 K/ul (4.8-10.8)
[2022-04-05 08:15] LABS: Albumin Globulin Ratio 1.4 (0.9-2); Albumin Level 4.2 gm/dl (3.4-5.0); BUN Creatinine Ratio 11.2 (10-20); Bilirubin,Total 0.4 mg/dl (0.2-1.0); Calcium 9.6 mg/dl (8.5-10.1); Creatinine Clr Calc Pharmacy 103.1 ml/min; Est GFR (Non-African American) 88.9 ml/min; Total Protein 7.2 gm/dl (6.0-8.3)
[2022-04-05 08:21] LABS: Basophils # (auto) 0.02 K/uL (0-0.2); Basophils % (auto) 0.4 %; Eosinophils # (auto) 0.16 K/uL (0-0.50); Eosinophils % (auto) 2.9 %; Immature Granulocytes # (auto) 0.01 K/uL (0.00-0.02); Immature Granulocytes % (auto) 0.2 %; Lymphocytes # (auto) 1.27 K/uL (1.2-3.4); Lymphocytes % (auto) 23.3 %; Monocytes # (auto) 0.43 K/uL (0.24-0.82); Monocytes % (auto) 7.9 %; Neutrophils # (auto) 3.56 K/uL (1.4-6.5); Neutrophils % (auto) 65.3 %
[2022-04-05] MEDS: LITHIUM CARBONATE 300 MG TAB PO SCH ×2 (09:48→20:33)
[2022-04-05] MEDS: LACTATED RINGER'S 1,000 ML IV SCH ×2 (09:48→20:35)
--- NOTE | 2022-04-05 10:07 | XRay Report ---
PA CHEST RADIOGRAPH AND UPRIGHT AND SUPINE AP RADIOGRAPHS OF THE ABDOMEN CLINICAL HISTORY: re-assess foreign bodies ingested COMPARISON STUDY: Chest radiograph April 03, 2022. KUB April 04, 2022. FINDINGS: There are no radiopaque foreign bodies within the chest. No consolidation is identified. C ardiomediastinal silhouette is unremarkable. There is no pneumothorax or pleural effusion. This likel y reflects a hypoventilatory study. Multiple radiopaque foreign bodies within the stomach are noted. An elongated coiled radiodensity is new since KUB April 04, 2020. Multiple foreign bodies within the colon are noted, predominantly with in the ascending colon, transverse colon and proximal descending colon. The majority of these were pr esent on exam of April 04, 2022. There is residual oral contrast within the colon and rectum. No socorro dence for free air. A 6.3 x 1.2 cm elongated radiodensity projects over the right mid abdomen. This i s new since prior exam. IMPRESSION: 1. Numerous radiopaque foreign bodies within the stomach and bowel. An elongated coiled density withi n the stomach and a 6.2 x 1.2 cm right abdominal foreign body are new since prior KUB. 2. No free air. No evidence for a bowel obstruction. 3. No radiopaque foreign bodies within the chest. ACT 112: Negative or not required by law. Electronically signed by: Layton Liu M.D. 04/05/2022 10:04 AM
--- NOTE | 2022-04-05 11:20 | Hospitalist Progress Note ---
Date of Service April 05, 2022 Assessment & Plan (1) Foreign body in stomach: Plan: Intentional ingestion of multiple FBs--> frequent admissions and ER visits for such in the last 6 months Underwent EGD 03/[address] Anderson[facility]. Normal esophagus. 3 cm piece of gurpreet stic tied to a piece of headphones and a washer. This was unable to be extracted through upper esophageal sphincter due to wedging in the esophagus. Thus - s/p exploratory laparotomy and gastrotomy with foreign body removal (2 pieces been tied together with plastic washers) 03/27/2022 - Isaias Paiz MD. Patient self removed NGT overnight of 03/27 into 03/28, replacement deferred by surgery. Also, of note, there are reports that staff could not locate the safety pin used to hold the NGT to his gown. Unfortunately had a retained foreign body after 03/27 gastrotomy procedure. Patient had 2nd EGD on 03/[address] Duval of [facility]. 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 s/p upper GI series on 03/31- no leak from stomach, ?retained foreign bodies x 2. KUB 04/01, again shows button-like foreign bodies and a total of 4 foreign bodies-it seems these are new in the last 2 days compared to previous imaging on 03/28-suspicion that he ingested further foreign body since the last EGD. The patient did admit to swallowing paperclips and buttons (metallic snaps from hospital gown) after his surgery. KUB 04/02 now with 10 FBs mostly in large bowel-I do not suspect new FBs ingested in the last day but likely just some of these were bunched together on previous xray or obscured by contrast from previous UGI study Healing well post-op from ex lap His diet was advanced to low fiber on 04/02, but then had 1 episode of vomiting which resulted in metallic foreign body getting stuck in the throat He was transferred to the ICU for observation for airway protection and ENT removed foreign body in the throat under direct laryngoscopy on the morning of 04/03 He then had an episode of emesis with either hemoptysis versus hematemesis on the afternoon of 04/03 and again noted on x-ray to have recurrent metallic foreign body in the throat CT soft tissues neck, chest, and abdomen/pelvis performed-fortunately throat foreign body was gone-suspect he swallowed it, and multiple foreign bodies remain in the stomach and bowels. No evidence of perforation -on 04/03, Attempts to get patient EGD to remove the residual metallic foreign bodies persisting in the stomach were unsuccessful both with local GI and calling to [facility] (on divert, no beds available), [facility] (GI and triage medical staff assistant did not feel transfer was necessary and that general GI could perform the endoscopy), and [facility] felt he would be better served at [facility]. Skilled Nursing Captain contacted by guard range and does not approve transfer to [facility] unless it is a life or situation. At this time, he is stable and it is not an emergency to transfer him. 04/04, reached out to [facility] and spoke with GI Dr. Burdick who also did not feel a transfer was necessary and that his EGD would not be considered high risk and could be performed at our facility by a willing GI doctor. Discussed with Dr. Villalobos who also d/w [facility]rest[facility] ) who remain in agreement to not scope here at this time. Dr. Villalobos now thinks can continue conservative measures, await for FBs to pass on own, serial xrays. On 04/05, abdominal x-ray again shows even more new foreign bodies with 1 large foreign body in the stomach but is radiopaque and coiled around. Patient admits to hiding objects in his nose since prior to admission and snorting them down into his throat and swallowing them. He told the nurse he thinks the current foreign body is the cord from his headphones. Again discussed with GI and do not suspect this will cause a problem and does not need to be removed by EGD. Fortunately, several of the previous metallic wire like foreign bodies that were in the stomach are now passed out of the stomach into the small intestine. GI recommending ethics consult to discuss appropriateness of continued treatment and procedures in this patient who continues to ingest foreign bodies in an effort of self-harm. -Follow daily KUBs -heavy metal screen pending -The [facility] has dictated since 04/01 that the patient now remain in three-point restraints, he has a spit mask in place, and they have asked for soft mitts to be placed on both hands to prevent him from continuing to ingest more foreign bodies. -can adv diet to safe tray, finger foods only to avoid all utensils -Discontinue IV fluids -Have since restarted p.o. meds -GI at [facility] recommended against giving Reglan or other motility agents -consulted Psychiatry for assistance with management and understanding of ongoing ingestion behaviors -Ethics consult placed I do believe that the patient can likely be discharged back to [facility] on Thursday. I think that by keeping him in the hospital, it is encouraging him to continue to ingest foreign bodies with secondary gain to remain in the hospital. I will reach out to the [facility] physician on Thursday and discuss his complex case. (2) Self-harming behavior: Plan: history of such - numerous occasions with various objects, often by way of ingestion as well as insertion of objects in the urethra. Unclear if this is due to psychiatric condition or malingering No foreign material, detachable material, small pieces/parts should be in arms raised with patient at any time. This includes drawstrings to close/waistbands, EKG stickers, and any loose material. Patient has a recurrent history of quickly ingesting or placing foreign materials into orifices. (3) Foreign body in urethra: Plan: Foreign body in urethra - 03/25 and 03/27 - removal on 2 occasions by [facility] in the OR via cystoscopy- Appreciate urology consultation He then poked a hole in his Hernandez catheter and deflated the balloon and pulled it out himself overnight on 03/31 No evidence of trauma to the penis on exam on 04/01 Received ceftriaxone 1 g IV daily empirically x 7 days recent urine cx negative Had presumed urinary retention of 1000mL on bladder scan on 04/02 AM and unsuccessful attempt at Hernandez placement as per RN-then pt voided large amount on own without difficulty-question if he is malingering with regards to retention but certainly could have reason to have retention due to multiple FB insertions, inflammation, stricture, etc. Pelvic xray 04/02 no radio-opaque FB Hernandez catheter replaced on 04/02-maintain for now -Again, taking precautions as above to avoid recurrent placement of foreign body in the urethra (4) Schizophrenia: Plan: Unclear if this is a true diagnosis Skilled Nursing records only have a diagnosis of antisocial personality disorder Typically is on lithium BID - level nontoxic range this am, Paxil, Remeron, and Haldol Earlier in his stay, increased haldol dose of 10mg HS has resolved the hearing of voices. Appreciate Psych consult (5) Depression: Plan: meds as above (6) Anxiety: Plan: meds as above (7) Microcytic anemia: Plan: Fe studies wnl could have thalassemia could have high lead levels HEAVY METAL SCREEN PENDING repeat cbc am (8) Bilateral calf pain: Plan: could be 2nd to low magnesium- replaced with IV magnesium and had improvement Lower extremity Dopplers negative for DVT (9) Hypokalemia: Plan: resolved (10) DVT prophylaxis: Plan: Hold Lovenox for bleeding that is scant from throat most liekly as per my d/w ENT Plan Disposition-[facility] physician requested that he stay in the hospital until all foreign bodies have passed. I will reach out to [facility] physician on Thursday as noted above Admission and Anticipated Discharge Date Admission Date: March 29, 2022 Subjective This morning on review of patient's abdominal x-ray, there were at least 2 new or large foreign bodies, 1 of which was in the stomach that was not there 24 hours ago. When I questioned the patient about it, he reports that he has had multiple objects shoved up into his nose since before he was even admitted to the hospital 2 weeks ago and that he has been snorting them to go down into his throat and then he swallows them. He feels like there is a piece of plastic in the back of his throat and wants to know if he is going to have a surgery or procedure to remove these items. He denies any abdominal pains or chest pain. He had a bowel movement yesterday and reports that there were no foreign bodies in the stool. I discussed his care with the on-call ENT physician, Dr. Garibay in case there would be need for nasopharyngoscopy. Sinus x-ray turned out to show no radiopaque foreign bodies and the patient remained stable throughout the day. I also discussed his care with the on-call general surgeon, Dr. Armstrong, and case there was a surgical issue. And again I discussed his care with GI, Dr. Murray, who reviewed the x-rays with radiology and felt that the new vitamin the stomach while greater than 3 cm is felt to be something soft. No indication for EGD at this time and will await to see if this item passes through the pylorus. The patient's diet was advanced and he tolerated this well. Review of Systems Review of Systems: All systems reviewed & are unremarkable except as noted in HPI & below Physical Exam Physical Exam: gen - NAD, lying comfortably in bed mouth - mmm, no foreign body noted in posterior oropharynx, no bleeding noted, otoscope used to look up his nose and no foreign bodies noted in the nasal passages heart - RRR, s1 s2, no murmur lungs - CTA b/l abd - BS+, no tenderness to palpation, abd wall incision clean, soft, ND ext - no edema psych -flat affect, answers questions appropriately Results & Data Results & Data ([facility]) Vital Signs (Past 12 Hours) Vital Signs Temp Pulse Resp BP Pulse Ox O2 Del Method 04/05/22 07:14 36.6 C 68 18 125/75 99 Room Air Laboratory Results 04/05/22 04/05/22 Range/Units 07:02 07:02 WBC 5.45 (4.8-10.8) K/ul RBC 5.21 (4.63-6.08) M/uL Hgb 12.6 L (14.0-18.0) g/dl Hct 39.8 L (40.1-51.0) % MCV 76.4 L (80.0-100.0) fL MCH 24.2 L (25.0-34.0) pg MCHC 31.7 L (32.0-36.0) g/dL RDW Std Deviation 36.1 L (36.4-46.3) fL RDW Coeff of Bassem 13.1 (11.5-14.5) % Plt Count 274 (130-400) K/uL MPV 10.2 (9.4-12.4) fL Immature Gran % (Auto) 0.2 % Neut % (Auto) 65.3 % Lymph % (Auto) 23.3 % Sanders % (Auto) 7.9 % Eos % (Auto) 2.9 % Baso % (Auto) 0.4 % Neut # (Auto) 3.56 (1.4-6.5) K/uL Lymph # (Auto) 1.27 (1.2-3.4) K/uL Sanders # (Auto) 0.43 (0.24-0.82) K/uL Eos # (Auto) 0.16 (0-0.50) K/uL Baso # (Auto) 0.02 (0-0.2) K/uL Immature Gran # (Auto) 0.01 (0.00-0.02) K/uL Sodium 136 (136-145) mmol/L Potassium 4.0 (3.5-5.1) mmol/L Chloride 102 (98-107) mmol/L Carbon Dioxide 27 (21-32) mmol/L Anion Gap 7 (3-11) BUN 13 (6-23) mg/dl Creatinine 1.16 (0.6-1.4) mg/dl Est Cr Clr Drug Dosing 103.1 ml/min Est GFR ( Amer) 103.0 ml/min Est GFR (Non-Af Amer) 88.9 ml/min BUN/Creatinine Ratio 11.2 (10-20) Glucose 91 (70-99(Fasting)) mg/dl Calcium 9.6 (8.5-10.1) mg/dl Total Bilirubin 0.4 (0.2-1.0) mg/dl AST 24 (13-39) U/L ALT 21 (7-52) U/L Alkaline Phosphatase 59 (34-104) U/L Total Protein 7.2 (6.0-8.3) gm/dl Albumin 4.2 (3.4-5.0) gm/dl Globulin 3.0 (2.5-4.0) gm/dl Albumin/Globulin Ratio 1.4 (0.9-2) Diagnostic Findings Abdominal and sinus x-rays personally reviewed by me and agree with the following reports: Chest/Abdomen X-ray 04/05/22 07:00 PA CHEST RADIOGRAPH AND UPRIGHT AND SUPINE AP RADIOGRAPHS OF THE ABDOMEN CLINICAL HISTORY: re-assess foreign bodies ingested COMPARISON STUDY: Chest radiograph April 03, 2022. KUB April 04, 2022. FINDINGS: There are no radiopaque foreign bodies within the chest. No consolidation is identified. Cardiomediastinal silhouette is unremarkable. There is no pneumothorax or pleural effusion. This likely reflects a hypoventilatory study. Multiple radiopaque foreign bodies within the stomach are noted. An elongated coiled radiodensity is new since KUB April 04, 2020. Multiple foreign bodies within the colon are noted, predominantly within the ascending colon, transverse colon and proximal descending colon. The majority of these were present on exam of April 04, 2022. There is residual oral contrast within the colon and rectum. No evidence for free air. A 6.3 x 1.2 cm elongated radiodensity projects over the right mid abdomen. This is new since prior exam. IMPRESSION: 1. Numerous radiopaque foreign bodies within the stomach and bowel. An elongated coiled density within the stomach and a 6.2 x 1.2 cm right abdominal foreign body are new since prior KUB. 2. No free air. No evidence for a bowel obstruction. 3. No radiopaque foreign bodies within the chest. ACT 112: Negative or not required by law. Electronically signed by: Layton Liu M.D. 04/05/2022 10:04 AM Sinuses X-Ray 04/05/22 11:11 XR sinus min 3V routine CLINICAL HISTORY: assess for foreign bodies COMPARISON STUDY: None available at time of interpretation due to PACS downtime. FINDINGS: No radiopaque foreign bodies are identified within the nasal cavity. No fractures are identified. IMPRESSION: No radiopaque foreign bodies identified. ACT 112: Negative or not required by law. Electronically signed by: Layton Liu M.D. 04/05/2022 3:02 PM PG Care Time/CCT Total # of Minutes Spent Total Time Spent with Patient: Total time spent is greater than 50% in coordination of care (as documented) at patient's floor/unit and/or counseling patient: Coding Level of Care Code 68505 Subseq Hosp Care Lvl 3 Diagnoses Foreign body in stomach T18.2XXA Self-harming behavior Foreign body in urethra T19.0XXA Schizophrenia F20.0 Schizophrenia type: paranoid schizophrenia Depression F32.A Depression Type: unspecified Anxiety F41.9 Microcytic anemia D50.9 Bilateral calf pain M79.661; M79.662 Hypokalemia E87.6 DVT prophylaxis Z29.9 (1) Depression Depression Type: unspecified Qualified Code(s): F32.A - Depression, unspecified (2) Schizophrenia Schizophrenia type: paranoid schizophrenia Qualified Code(s): F20.0 - Paranoid schizophrenia
--- NOTE | 2022-04-05 15:04 | XRay Report ---
XR sinus min 3V routine CLINICAL HISTORY: assess for foreign bodies COMPARISON STUDY: None available at time of interpretation due to PACS downtime. FINDINGS: No radiopaque foreign bodies are identified within the nasal cavity. No fractures are ident ified. IMPRESSION: No radiopaque foreign bodies identified. ACT 112: Negative or not required by law. Electronically signed by: Layton Liu M.D. 04/05/2022 3:02 PM
[2022-04-05] MEDS: POLYETHYLENE (MIRALAX) 17 GM PACK PO SCH (17:39)
[2022-04-05] MEDS: MIRTAZAPINE SOLTAB 15 MG PO SCH (20:31)
[2022-04-05] MEDS: haloperidoL 5 MG TAB PO SCH (20:33)
[2022-04-05] MEDS: PARoxetine HCL 20 MG TAB PO SCH (20:34)
--- NOTE | 2022-04-06 09:07 | XRay Report ---
KUB HISTORY: Follow up study in a patient with foreign body ingestion eval foreign bodies COMPARISON: Acute abdominal series radiographs 04/05/2022 FINDINGS: Enteric contrast is noted within the large bowel. Study is motion degraded. Multiple radiop aque foreign bodies of the stomach are redemonstrated. The previously described elongated coiled fore ign body is again noted within the stomach. Multiple foreign bodies within the colon are now predomin antly within the descending segment. 6.3 cm elongated radiodensity of the mid abdomen is in similar p ositioning. No definite new foreign bodies are identified. No renal calculi. No ureteral calculi. No pneumoperitoneum or pneumatosis. No fracture. IMPRESSION: 1. Numerous opaque foreign bodies within the stomach and bowel redemonstrated as above. 2. Residual enteric contrast within the colon. 3. No bowel obstruction or pneumoperitoneum identified. ACT 112: Negative or not required by law. The above report was generated using voice recognition software. It may contain grammatical, syntax o r spelling errors. Electronically signed by: Bernardino Rome M.D. 04/06/2022 9:05 AM
[2022-04-06] MEDS: LITHIUM CARBONATE 300 MG TAB PO SCH ×2 (09:45→21:24)
[2022-04-06] MEDS: POLYETHYLENE (MIRALAX) 17 GM PACK PO SCH (09:45)
--- NOTE | 2022-04-06 16:54 | Hospitalist Progress Note ---
Date of Service April 06, 2022 Assessment & Plan (1) Foreign body in stomach: Plan: Intentional ingestion of multiple FBs--> frequent admissions and ER visits for such in the last 6 months Underwent EGD 03/[address] Anderson[facility]. Normal esophagus. 3 cm piece of gurpreet stic tied to a piece of headphones and a washer. This was unable to be extracted through upper esophageal sphincter due to wedging in the esophagus. Thus - s/p exploratory laparotomy and gastrotomy with foreign body removal (2 pieces been tied together with plastic washers) 03/27/2022 - Isaias Paiz MD. Patient self removed NGT overnight of 03/27 into 03/28, replacement deferred by surgery. Also, of note, there are reports that staff could not locate the safety pin used to hold the NGT to his gown. Unfortunately had a retained foreign body after 03/27 gastrotomy procedure. Patient had 2nd EGD on 03/[address] Duval of [facility]. 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 s/p upper GI series on 03/31- no leak from stomach, ?retained foreign bodies x 2. KUB 04/01, again shows button-like foreign bodies and a total of 4 foreign bodies-it seems these are new in the last 2 days compared to previous imaging on 03/28-suspicion that he ingested further foreign body since the last EGD. The patient did admit to swallowing paperclips and buttons (metallic snaps from hospital gown) after his surgery. KUB 04/02 now with 10 FBs mostly in large bowel-I do not suspect new FBs ingested in the last day but likely just some of these were bunched together on previous xray or obscured by contrast from previous UGI study Healing well post-op from ex lap His diet was advanced to low fiber on 04/02, but then had 1 episode of vomiting which resulted in metallic foreign body getting stuck in the throat He was transferred to the ICU for observation for airway protection and ENT removed foreign body in the throat under direct laryngoscopy on the morning of 04/03 He then had an episode of emesis with either hemoptysis versus hematemesis on the afternoon of 04/03 and again noted on x-ray to have recurrent metallic foreign body in the throat CT soft tissues neck, chest, and abdomen/pelvis performed-fortunately throat foreign body was gone-suspect he swallowed it, and multiple foreign bodies remain in the stomach and bowels. No evidence of perforation -on 04/03, Attempts to get patient EGD to remove the residual metallic foreign bodies persisting in the stomach were unsuccessful both with local GI and calling to [facility] (on divert, no beds available), [facility] (GI and triage biomedical electronics technician did not feel transfer was necessary and that general GI could perform the endoscopy), and [facility] GI felt he would be better served at [facility]. Correction Captain contacted by agile qa tester and does not approve transfer to [facility] unless it is a life or situation. At this time, he is stable and it is not an emergency to transfer him. 04/04, reached out to [facility] and spoke with GI Dr. Burdick who also did not feel a transfer was necessary and that his EGD would not be considered high risk and could be performed at our facility by a willing GI doctor. Discussed with Dr. Villalobos who also d/w [facility] Shrestha [facility]regional [facility] who remain in agreement to not scope here at this time. Dr. Villalobos now thinks can continue conservative measures, await for FBs to pass on own, serial xrays. On 04/05, abdominal x-ray again shows even more new foreign bodies with 1 large foreign body in the stomach but is radiopaque and coiled around. Patient admits to hiding objects in his nose since prior to admission and snorting them down into his throat and swallowing them. He told the nurse he thinks the current foreign body is the cord from his headphones. Again discussed with GI and do not suspect this will cause a problem and does not need to be removed by EGD. Fortunately, several of the previous metallic wire like foreign bodies that were in the stomach are now passed out of the stomach into the small intestine. GI recommending ethics consult to discuss appropriateness of continued treatment and procedures in this patient who continues to ingest foreign bodies in an effort of self-harm. 04/06-feels like still foreign body in nose-cannot visualize on exam -Follow daily KUBs -heavy metal screen negative -The custodial has dictated since 04/01 that the patient now remain in three-point restraints, he has a spit mask in place, and they have asked for soft mitts to be placed on both hands to prevent him from continuing to ingest more foreign bodies. -continue diet w/ safe tray, finger foods only to avoid all utensils -GI at [facility] recommended against giving Reglan or other motility agents -consulted Psychiatry for assistance with management and understanding of ongoing ingestion behaviors -Ethics consult placed to determine if appropriate to continue to offer multiple procedures to someone who is purposefully causing self-harm in an effort for secondary gain -will keep NPO after midnight tonight in case ENT wants to perform nasopharyngoscope to look for foreign body in nose on Thursday I do believe that the patient can likely be discharged back to custodial on Thursday. I think that by keeping him in the hospital, it is encouraging him to continue to ingest foreign bodies with secondary gain to remain in the hospital. I will reach out to the custodial physician on Thursday and discuss his complex case. (2) Self-harming behavior: Plan: history of such - numerous occasions with various objects, often by way of ingestion as well as insertion of objects in the urethra. Unclear if this is d ue to psychiatric condition or malingering No foreign material, detachable material, small pieces/parts should be in arms raised with patient at any time. This includes drawstrings to close/waistbands, EKG stickers, and any loose material. Patient has a recurrent history of quickly ingesting or placing foreign materials into orifices. (3) Foreign body in urethra: Plan: Foreign body in urethra - 03/25 and 03/27 - removal on 2 occasions by [facility] in the OR via cystoscopy- Appreciate urology consultation He then poked a hole in his Hernandez catheter and deflated the balloon and pulled it out himself overnight on 03/31 No evidence of trauma to the penis on exam on 04/01 Received ceftriaxone 1 g IV daily empirically x 7 days recent urine cx negative Had presumed urinary retention of 1000mL on bladder scan on 04/02 AM and unsuccessful attempt at Hernandez placement as per RN-then pt voided large amount on own without difficulty-question if he is malingering with regards to retention but certainly could have reason to have retention due to multiple FB insertions, inflammation, stricture, etc. Pelvic xray 04/02 no radio-opaque FB Hernandez catheter replaced on 04/02-maintain for now -Again, taking precautions as above to avoid recurrent placement of foreign body in the urethra (4) Schizophrenia: Plan: Unclear if this is a true diagnosis Correction records only have a diagnosis of antisocial personality disorder Typically is on lithium BID - level nontoxic range this am, Paxil, Remeron, and Haldol Earlier in his stay, increased haldol dose of 10mg HS has resolved the hearing of voices. Appreciate Psych consult (5) Depression: Plan: meds as above (6) Anxiety: Plan: meds as above (7) Microcytic anemia: Plan: Fe studies wnl could have thalassemia HEAVY METAL SCREEN negative (8) Bilateral calf pain: Plan: could be 2nd to low magnesium- replaced with IV magnesium and had improvement Lower extremity Dopplers negative for DVT (9) Hypokalemia: Plan: resolved (10) DVT prophylaxis: Plan: Hold Lovenox for bleeding that is scant from throat most liekly as per my d/w ENT-bleeding resolved but may need nasopharyngescope tomorrow so continue ot hold Plan Disposition-custodial physician requested that he stay in the hospital until all foreign bodies have passed. I will reach out to custodial physician on Thursday as noted above Admission and Anticipated Discharge Date Admission Date: March 29, 2022 Subjective Pt reports only mild abd pain. Moved bowels twice today. No nausea, is eating. No longer feels any foreign body in throat but still feels like something is stuck up in his nose-states "I feel something poking me up there." Review of Systems Review of Systems: All systems reviewed & are unremarkable except as noted in HPI & below Physical Exam Physical Exam: gen - NAD, lying comfortably in bed mouth - mmm, no foreign body noted in posterior oropharynx, no bleeding noted, no FB noted in nasal passages heart - RRR, s1 s2, no murmur lungs - CTA b/l abd - BS+, no tenderness to palpation, abd wall incision clean, soft, ND ext - no edema psych -flat affect, answers questions appropriately Results & Data Results & Data ([facility]) Vital Signs (Past 12 Hours) Vital Signs Temp Pulse Resp BP Pulse Ox O2 Del Method 04/06/22 07:24 36.6 C 86 18 113/69 97 Room Air PG Care Time/CCT Total # of Minutes Spent Total Time Spent with Patient: Total time spent is greater than 50% in coordination of care (as documented) at patient's floor/unit and/or counseling patient: Coding Level of Care Code 19110 Subseq Hosp Care Lvl 2 Diagnoses Foreign body in stomach T18.2XXA Self-harming behavior Foreign body in urethra T19.0XXA Schizophrenia F20.0 Schizophrenia type: paranoid schizophrenia Depression F32.A Depression Type: unspecified Anxiety F41.9 Microcytic anemia D50.9 Bilateral calf pain M79.661; M79.662 Hypokalemia E87.6 DVT prophylaxis Z29.9 (1) Schizophrenia Schizophrenia type: paranoid schizophrenia Qualified Code(s): F20.0 - Paranoid schizophrenia (2) Depression Depression Type: unspecified Qualified Code(s): F32.A - Depression, unspecified
[2022-04-06] MEDS: ONDANSETRON INJ 2 MG/ML 2 ML VIAL IV PRN (18:42)
[2022-04-06] MEDS: MIRTAZAPINE SOLTAB 15 MG PO SCH (21:21)
[2022-04-06] MEDS: PARoxetine HCL 20 MG TAB PO SCH (21:24)
[2022-04-06] MEDS: haloperidoL 5 MG TAB PO SCH (21:25)
[2022-04-07] MEDS: ONDANSETRON INJ 2 MG/ML 2 ML VIAL IV PRN ×3 (00:06→20:20)
[2022-04-07] MEDS ORDERED: PROMETHAZINE HCL 12.5 MG in SODIUM CHLORIDE 0.9% 50 ML IV STA (01:51)
--- NOTE | 2022-04-07 08:35 | Communication Note ---
Date of Service: April 07, 2022 ethics consult - case d/w attending beneficence - while it sounds like there are differing opinions between endoscopic vs conservative in the multitude of GI opinions obtained, certainly some form of active management (either endoscopic or serial imaging) is warranted non-maleficence- again differing opinions but does not sound as though risk with endoscopic procedure would be inordinately elevated if procedure warranted autonomy - not entirely a factor in this situation given that either uncontrolled schizophrenia or malingering at play justice - resources to proceed with his care are not limited, so therefore while it is of course frustrating that his situation appears to repeat over and over, this would not be a reason to limit care.
[2022-04-07] MEDS: LITHIUM CARBONATE 300 MG TAB PO SCH ×2 (09:39→20:19)
[2022-04-07] MEDS: POLYETHYLENE (MIRALAX) 17 GM PACK PO SCH (09:39)
--- NOTE | 2022-04-07 11:43 | XRay Report ---
KUB HISTORY: reassess foreign bodies COMPARISON: KUB 04/06/2022. FINDINGS: Multiple scattered metallic foreign bodies again seen throughout the abdomen and pelvis. Th e majority of these are located within the stomach. Overall, the number of metallic foreign bodies patel s slightly decreased. Dilated loop of small bowel within the left upper quadrant measuring 5.4 cm has slightly progressed. This raises the possibility of a developing small bowel obstruction. The lung b ases are clear. No renal calculi. No ureteral calculi. No pneumoperitoneum or pneumatosis. IMPRESSION: 1. Dilated loop of small bowel within the left upper quadrant which has progressed. This is concernin g for a small bowel obstruction. 2. Scattered metallic foreign bodies seen throughout the abdomen and pelvis which have slightly decre ased in number compared to the prior study. 3. This report was called/faxed to the referring physician following dictation ACT 112: Negative or not required by law. Electronically signed by: Richard Aburto M.D. 04/07/2022 11:42 AM
--- NOTE | 2022-04-07 13:27 | Communication Note ---
Date of Service: April 07, 2022 Our services have been consulted for a SBO. Patients chart and imaging reviewed. Patient is currently 11 days s/p ex lap with gastrotomy and removal of foreign bodies after unsuccessful attempt at removal via upper endoscopy as the foreign bodies were tied together. He is 10 days s/p endoscopy with removal of retained foreign bodies after gastrotomy which were located in a medium-sized paraesophageal hernia. Patient unfortunately has continued to swallow multiple foreign bodies since his procedures and serial abdominal xrays showing concern for possible small bowel obstruction today. A CT scan of abdomen and pelvis is being obtained. strict NPO. Discussed with Dr. Paiz. Would recommend transfer to tertiary center as he may require advanced procedures/multidisciplinary team as he is 11 days s/p exploratory laparotomy with multiple small bowel foreign bodies in which exact object is uncertain causing the obstruction.
--- NOTE | 2022-04-07 13:48 | CT Scan Report ---
ABDOMEN AND PELVIS CT WITHOUT CONTRAST CT DOSE: 292.98 mGy.cm HISTORY: Follow up study in a patient with foreign body ingestion assess for foreign body,SBO TECHNIQUE: Multiaxial CT images of the abdomen and pelvis were performed without contrast. A dose lo wering technique was utilized adhering to the principles of ALARA. COMPARISON STUDY: KUB of same day, CT abdomen and pelvis 04/03/2022 FINDINGS: Limited exam without the use of IV contrast. Trace pericardial and pleural effusions. A 4 m m subpleural solid nodule of the basal left lower lobe has mildly decreased from the prior study and is likely infectious or inflammatory. No pneumatosis or pneumoperitoneum identified. The unenhanced spleen, pancreas and adrenal glands are unremarkable. Hyperdense material within the g allbladder lumen is suggestive of cholelithiasis versus vicarious excretion of contrast. Unremarkable liver. The kidneys are within normal limits. There is no hydronephrosis. Hernandez catheter within a dec ompressed urinary bladder. Small amount of pelvic ascites. Unremarkable aorta. There are 4 linear metallic density foreign bodies of the stomach, the largest of which measures 10.6 cm. 2.2 cm linear foreign body is noted within a loop of small bowel within the central upper abdome n on image 129. This is positioned transversely within the bowel however demonstrates no evidence of perforation or bowel wall thickening. 5 cm linear electronic plug-like device is noted within a loop of small bowel within the right midabdomen. Just distal to this transition point of a high-grade smal l bowel obstruction with dilated upstream loops measuring up to approximately 3.6 cm. Additional line ar metallic density foreign body is noted within the loop of small bowel within the left abdomen on i mage 196. Similar-appearing foreign body is present within a small bowel loop within the abdominal ri ght lower quadrant, image 235. Linear metallic density foreign bodies noted within the rectum, image 377. Postoperative changes of the stomach. The appendix is not well visualized. Postoperative changes of anterior abdominal wall. No acute fracture. IMPRESSION: 1. Limited exam without the use of IV contrast. 2. Numerous ingested foreign bodies as above within the stomach and bowel. No pneumoperitoneum to sug gest bowel perforation. 3. Small bowel obstruction, likely high-grade with transition point within the abdominal right lower quadrant adjacent to one of the aforementioned ingested foreign bodies. 4. Trace pericardial and pleural effusions. ACT 112: Negative or not required by law. The above report was generated using voice recognition software. It may contain grammatical, syntax o r spelling errors. Electronically signed by: Bernardino Rome M.D. 04/07/2022 1:47 PM
[2022-04-07] MEDS ORDERED: SUGAMMADEX SODIUM 200 MG/2 ML VIAL IV ONE (15:45)
[2022-04-07] MEDS ORDERED: PROPOFOL IV EMULSION 10 MG/ML 20 ML VIAL IV ONE ×2 (15:47→16:37)
[2022-04-07] MEDS ORDERED: SUCCINYLCHOLINE CHLORIDE 20 MG/ML 10 ML VIAL IV ONE (15:47)
[2022-04-07] MEDS ORDERED: fentaNYL citrate 100 MCG/2 ML VIAL ONE ×2 (15:48→16:39)
[2022-04-07] MEDS ORDERED: MIDAZOLAM HCL 1 MG/ML 2ML VIAL ONE (15:48)
[2022-04-07] MEDS ORDERED: KETAMINE 50 MG/5 ML SYRINGE ONE (15:48)
[2022-04-07] MEDS ORDERED: GLYCOPYRROLATE 0.2 MG/ML VIAL ONE (15:51)
--- NOTE | 2022-04-07 15:52 | Surgery Consultation ---
Date of Consultation April 07, 2022 Assessment & Plan (1) Small bowel obstruction: Plan 22-year-old who is 10 days status post exploratory laparotomy with gastrotomy to remove foreign material from his stomach now presents with a high-grade small bowel obstruction secondary to foreign objects that he has swallowed again since the surgery. We attempted to transfer him to higher level of care and they refused to take him. I discussed with him the risks and benefits of exploratory laparotomy with removal of foreign material and possible bowel resection. All his questions were answered. He is agreeable to proceed. We will schedule this at the earliest convenience. History of Present Illness Reason for Consultation: Small bowel obstruction due to foreign objects in the small intestine Requesting Physician: Enid Jones MD Attending Physician: Enid Jones MD History of Present Illness 22-year-old who is 10 days status post exploratory laparotomy with gastrotomy and removal of foreign material from his stomach presents with a high-grade small bowel obstruction due to further foreign objects that he swallowed since the surgery. He continues to have pain in his abdomen. He has continued to swallow things. He has something in his stomach, and multiple foreign objects in his small intestine. He had some nausea. He denies fevers and chills. Of note, we have tried to transfer him to higher level of care due to his multiple medical and surgical issues, and [facility] refused to take him. Allergies Allergy/AdvReac Type Severity Reaction Status Date / Time No Known Allergies Allergy Verified 03/25/22 00:50 Home Medications Medication Instructions Recorded Confirmed Type haloperidol 10 mg tablet 10 mg PO HS 03/25/22 03/25/22 History haloperidol 5 mg tablet 5 mg PO HS 03/25/22 03/25/22 History lithium carbonate 300 mg capsule 300 mg PO BID 03/25/22 03/25/22 History mirtazapine 45 mg tablet 45 mg PO HS 03/25/22 03/25/22 History paroxetine HCl 10 mg tablet 10 mg PO HS 03/25/22 03/25/22 History paroxetine HCl 20 mg tablet 20 mg PO HS 03/25/22 03/25/22 History polyethylene glycol 3350 17 gram 17 g PO BID 03/25/22 03/25/22 History oral powder packet (Miralax) Patient History Medical History Anxiety Depression Foreign body in urethra H/O swallowed foreign body Schizophrenia Suicidal ideation Surgical History H/O cystoscopy H/O esophagogastroduodenoscopy H/O exploratory laparotomy Social History Smoking Status: Never smoker Tobacco Type: Cigarettes Second Hand Exposure: No; Hx Alcohol Use: No Hx Substance Use: No Preferred Language: Yakut Communication Ability: Effective Intelligence Director Required: No Beliefs That Will Affect Care: None marital status: Single Current Living Situation: Other Current Living Situation Comment: [facility]. How many Children do You have: 0 Feels Safe at Home: Yes Assistive Devices: None Review of Systems Review of Systems: All systems reviewed & are unremarkable except as noted in HPI & below Physical Exam Constitutional: WD/WN, vitals as above Neck: trachea midline, no thyromegaly Respiratory: normal respiratory effort, lungs clear to auscultation Cardiovascular: RRR, no murmur, no edema Gastrointestinal (Abdomen): Inspection/Auscultation: + abdomen distended; + abdomen abnormal to inspection Percussion/Palpation: + abdomen tender and abdomen soft Skin: no rashes, warm and dry Psychiatric: A+Ox3, euthymic affect Results & Data ([facility]) Vital Signs (Past 12 Hours) Vital Signs Temp Pulse Resp BP Pulse Ox O2 Del Method 04/07/22 15:27 37.4 C 90 16 124/74 96 Room Air 04/07/22 07:03 36.5 C 84 16 118/80 98 Room Air
--- NOTE | 2022-04-07 15:53 | Anesthesiology Consultation ---
Date of Service April 07, 2022 Assessment & Plan (1) Encounter for pre-operative examination: Chart Review Chart Review: Acceptable Risk for Surgery History Surgery Operation Date: 03/25/22 00:15 Proposed Procedures p Cystoscopy - José Luis Burton DO Operation Date: 03/25/22 10:35 Proposed Procedures p Esophagogastroduodenoscopy - Henri Anderson Jr, MD Operation Date: 03/26/22 09:40 Proposed Procedures p Esophagogastroduodenoscopy Foreign Body Removal - Henri Anderson Jr, MD Operation Date: 03/27/22 14:10 Proposed Procedures p Exploratory Laparotomy, Gastrotomy Removal of Foreign Body - José Luis Paiz MD s Cystoscopy - Anton Randall MD Operation Date: 03/28/22 10:05 Proposed Procedures p Esophagogastroduodenoscopy - Aki Duval MD s Possible Laparotomy Gastrostomy Removal - José Luis Paiz MD Operation Date: 04/03/22 07:00 Proposed Procedures s Esophagoscopy - Tonja Orantes MD p Endoscopic Foreign Body Removal - Tonja Orantes MD Operation Date: 04/03/22 09:50 Proposed Procedures p Esophagogastroduodenoscopy - Luc Villalobos MD Operation Date: 04/07/22 08:50 Proposed Procedures p Exploratory Laparotomy, Small Bowel Obstruction - José Luis Paiz MD Height/Weight Height: 5 ft 10 in Weight: 81 kg Allergies Allergy/AdvReac Type Severity Reaction Status Date / Time No Known Allergies Allergy Verified 03/25/22 00:50 Medications Home Medications Medication Instructions Recorded Confirmed Last Taken haloperidol 10 mg tablet 10 mg PO 03/25/22 03/25/22 03/23/22 haloperidol 5 mg tablet 5 mg PO 03/25/22 03/25/22 03/23/22 lithium carbonate 300 mg capsule 300 mg PO BID 03/25/22 03/25/22 03/24/22 06:30 mirtazapine 45 mg tablet 45 mg PO 03/25/22 03/25/22 03/23/22 paroxetine HCl 10 mg tablet 10 mg PO HS 03/25/22 03/25/22 03/23/22 paroxetine HCl 20 mg tablet 20 mg PO 03/25/22 03/25/22 03/23/22 polyethylene glycol 3350 17 gram 17 g PO BID 03/25/22 03/25/22 03/24/22 06:30 oral powder packet (Miralax) Active Medications Generic Name Dose Route Start Last Admin Trade Name Freq PRN Reason Stop Dose Admin Haloperidol 10 mg 03/29/22 21:00 04/06/22 21:25 Haloperidol 5 Mg Tab PO 04/28/22 20:59 10 mg HS WAYNE Administration [place] Carbonate 300 mg 03/26/22 21:00 04/07/22 09:39 [place] Carbonate 300 Mg Tab PO 04/25/22 20:59 300 mg BID WAYNE Administration Mirtazapine 45 mg 03/27/22 21:00 04/06/22 21:21 Mirtazapine Soltab 15 Mg PO 04/26/22 20:59 45 mg HS WAYNE Administration Protocol Ondansetron HCl 4 mg 03/28/22 13:40 04/07/22 13:42 Ondansetron Inj 2 Mg/Ml 2 Ml Vial IV 04/27/22 13:39 4 mg Q6H PRN Administration Nausea And Vomiting Paroxetine HCl 30 mg 03/25/22 02:45 04/06/22 21:24 Paroxetine Hcl 20 Mg Tab PO 04/24/22 02:44 30 mg HS WAYNE Administration Polyethylene Glycol 17 gm 04/05/22 17:15 04/07/22 09:39 Polyethylene (Miralax) 17 Gm Pack PO 05/05/22 17:14 17 gm DAILY WAYNE Administration NPO Date Last Intake of Fluids: 04/02/22 Time Last Intake of Fluids: 17:00 Date Last Intake of Solids: 04/02/22 Time Last Intake of Solids: 17:00 Past Medical History Medical History Anxiety Depression Foreign body in urethra H/O swallowed foreign body Schizophrenia Suicidal ideation Past Surgical History Surgical History H/O cystoscopy H/O esophagogastroduodenoscopy H/O exploratory laparotomy Social History Smoking Status: Never smoker tobacco type: cigarettes Do You Dip or Chew Tobacco: No Hx Alcohol Use: No Hx Substance Use: No substance use type: does not use Physical Exam Vital Signs Last Vital Signs Temp 37.4 C 04/07/22 15:27 Pulse 90 04/07/22 15:27 Resp 16 10/10/22 15:27 BP 124/74 04/07/22 15:27 Pulse Ox 96 04/07/22 15:27 O2 Del Method 04/07/22 15: O2 Flow Rate 3 03/28/22 12:15 Testing Laboratory Results 04/05/22 07:02 04/05/22 07:02 PT 11.1 Seconds (9.0-12.0) 03/24/22 20:48 INR 1.0 (0.9-1.1) 03/24/22 20:48 APTT 24.6 Seconds (21.0-31.0) 03/24/22 20:48 Urine Color Yellow 03/25/22 Unknown Urine Appearance Slightly Cloudy (Clear) A 03/25/22 Unknown Urine pH 8.0 (4.5-7.5) H 03/25/22 Unknown Ur Specific [place] > 1.045 (1.000-1.030) H 03/25/22 Unknown Urine Protein Negative (Negative) 03/25/22 Unknown Urine Glucose (UA) Negative (Negative) 03/25/22 Unknown Urine Ketones Negative (Negative) 03/25/22 Unknown Urine Nitrite Negative (Negative) 03/25/22 Unknown Ur Leukocyte Esterase 2+ (Negative) H 03/25/22 Unknown Urine WBC (Auto) >30 /hpf (0-5) H 03/25/22 Unknown Urine RBC (Auto) 0-4 /hpf (0-4) 03/25/22 Unknown U Hyaline Cast (Auto) 1-5 /lpf (0-5) 03/25/22 Unknown U Epithel Cells (Auto) 5-10 /lpf (0-5) H 03/25/22 Unknown Urine Bacteria (Auto) Negative (Negative) 03/25/22 Unknown 03/25/22 Unknown Urine Culture - Final Urine,Clean Catch Three types or organisms present, all moderate counts probable skin jerilyn. No further identifications or sensitivities to follow.
[2022-04-07] MEDS ORDERED: KETOROLAC 30 MG/ML VIAL IV PRN (16:12)
[2022-04-07] MEDS ORDERED: HYDROmorphone INJ 1 MG/ML SYRINGE IV PRN (16:12)
[2022-04-07] MEDS ORDERED: ONDANSETRON INJ 2 MG/ML 2 ML VIAL IV PRN (16:12)
[2022-04-07] MEDS ORDERED: PROMETHAZINE HCL 12.5 MG in SODIUM CHLORIDE 0.9% 50 ML IV PRN (16:12)
[2022-04-07] MEDS ORDERED: ATROPINE SULFATE 0.1 MG/ML 10ML SYR IV PRN (16:12)
[2022-04-07] MEDS ORDERED: ceFAZolin 2,000 MG/15 ML IV PUSH IV ONE (16:15)
[2022-04-07] MEDS ORDERED: ceFAZolin 2000MG 2,000 MG/15 ML SYR IV ONE (16:16)
[2022-04-07] MEDS ORDERED: ONDANSETRON INJ 2 MG/ML 2 ML VIAL ONE (16:36)
[2022-04-07] MEDS ORDERED: DEXAMETHASONE SOD INJ 4 MG/ML VIAL ONE (16:36)
[2022-04-07] MEDS ORDERED: PHENYLEPHRINE 100MCG/ML 5ML SYR ONE (16:36)
[2022-04-07] MEDS ORDERED: KETOROLAC 30 MG/ML VIAL ONE (17:24)
--- NOTE | 2022-04-07 17:42 | Post Operative Brief Note ---
Immediate Post Op Note v1 Date of Surgery April 07, 2022 Pre & Post Diagnosis Operation Date: 04/07/22 08:50 Pre-Op Diagnosis: Small bowel obstruction Post-Op Diagnosis: Small bowel obstruction I identified the patient and participated in the time-out.: Yes Procedure Operation Date: 04/07/22 08:50 Actual Procedures p Exploratory Laparotomy, Small Bowel Enterotomy with Removal of Foreign Body(Not Applicable) - José Luis Paiz MD Surgeon José Luis Paiz MD Night Custodian None Estimated Blood Loss 10 Findings Consistent with Post-Op Diagnosis Connector from a pulse oximeter was found in the small bowel causing the obstruction Drains Hernandez Catheter Anesthesia Type General
[2022-04-07] MEDS ORDERED: MEPERIDINE HCL 50 MG/ML CARP IV STA (17:49)
[2022-04-07] MEDS ORDERED: MEPERIDINE HCL 25 MG/ML CARP/VIAL ONE (17:53)
--- NOTE | 2022-04-07 17:55 | Operative Report ---
Post Operative Report Pre & Post Diagnosis Operation Date: 04/07/22 08:50 Pre-Op Diagnosis: Small bowel obstruction Post-Op Diagnosis: Small bowel obstruction I identified the patient and participated in the time-out.: Yes Procedure Operation Date: 04/07/22 08:50 Actual Procedures p Exploratory Laparotomy, Small Bowel Enterotomy with Removal of Foreign Body(Not Applicable) - José Luis Paiz MD Surgeon José Luis Paiz MD Steel Chipper None Estimated Blood Loss 10 Findings Consistent with Post-Op Diagnosis Small bowel obstruction due to the connector portion of a pulse oximeter. Specimens Foreign object Drains None Anesthesia Type General Complications No immediate complications Description of Procedure Patient taken to the operating room, placed supine on the operating table. A timeout was performed, perioperative antibiotics were administered, SCD boots were placed. After adequate anesthesia and analgesia was obtained, the area was prepped and draped in normal sterile fashion. Midline incision was made centered around the umbilicus and was carried down to the level of the fascia. The fascia was entered at the umbilicus and the incision was opened to its fullest extent. A small amount of serous fluid was returned. I began to run the bowel. There were adhesions of the small bowel to itself into the omentum and colon, these were taken down bluntly. The bowel was run back to the ligament of Treitz. Starting at the ligament of Treitz, it was run down towards the terminal ileum. In the distal jejunum, the point of obstr uction was identified. There was a firm dense plastic object at this point. Distal to this the bowel was decompressed. Proximal to this there was some fecalization of the small bowel material. A longitudinal incision was made with Bovie electrocautery, and the plastic object was removed. This was noted to be the connector piece of a pulse oximeter. It was removed and sent off the field. The enterotomy was closed in a transverse fashion in 2 layers. The inner layer was closed with running 3-0 Vicryl, and the outer layer was a seromuscular Lembert style 3-0 silk suture layer. A small serosal tear nearby was closed with 3-0 silk suture. The bowel was then run 1 more time from the ligament of Treitz to the terminal ileum. It was then reduced back into the abdominal cavity. Hemostasis was excellent. The fascia was closed with a running #1 PDS. Subcutaneous tissue was closed with 3-0 Vicryl. The skin was closed with a running 4-0 Monocryl subcuticular stitch. Dermabond was applied. Dressings were applied. The patient tolerated the procedure without complication, was transferred in stable condition to the PACU. All instrument, needle, and sponge counts were correct at the end of the case. I attest to the content of the Intraoperative Record and any orders documented therein. Any exceptions are noted below.
--- NOTE | 2022-04-07 18:37 | Hospitalist Progress Note ---
Date of Service April 07, 2022 Assessment & Plan (1) Small bowel obstruction: Plan: On 04/07, developed high-grade SBO secondary to foreign body impaction On 04/07, taken to the OR for repeat ex lap with enterotomy and removal of foreign body which was a piece of a pulse oximeter from the hospital. Also had lysis of adhesions-surgery with Dr. José Luis Paiz -Keep n.p.o. Postop except for meds -Start D5 LR at 125 mL/h until taking p.o. -Check KUB in the morning -Appreciate general surgery management with Dr. Paiz -Follow CBC, CMP, magnesium, phosphorus in the morning -Dr. Duval plans on taking the patient for repeat EGD on 04/08 for removal of remaining foreign bodies in the stomach which are not passing through the pylorus to avoid repeat bowel obstruction -Add IV morphine back on for pain control status post ex lap, continue Toradol IV as needed -Acetaminophen as needed for mild pain -He is high risk for recurrent bowel obstructions given presence of adhesions and now multiple exploratory laparotomies-this was stressed with patient in an effort to discourage future ingestions-this should continue to be reinforced with patient (2) Foreign body in stomach: Plan: Intentional ingestion of multiple FBs--> frequent admissions and ER visits for such in the last year at this facility Underwent EGD 03/[address] Anderson, [facility]. Normal esophagus. 3 cm piece of plastic tied to a piece of headphones and a washer. This was unable to be extracted through upper esophageal sphincter due to wedging in the esophagus. Thus - s/p exploratory laparotomy and gastrotomy with foreign body removal (2 pieces been tied together with plastic washers) 03/27/2022 - Isaias Paiz MD. Patient self removed NGT overnight of 03/27 into 03/28, replacement deferred by surgery. Also, of note, there are reports that staff could not locate the safety pin used to hold the NGT to his gown. Unfortunately had a retained foreign body after 03/27 gastrotomy procedure. Patient had 2nd EGD on 03/[address] Duval of [facility]. 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 s/p upper GI series on 03/31- no leak from stomach, ?retained foreign bodies x 2. KUB 10/4, again shows button-like foreign bodies and a total of 4 foreign bodies-it seems these are new in the last 2 days compared to previous imaging on 03/28-suspicion that he ingested further foreign body since the last EGD. The patient did admit to swallowing paperclips and buttons (metallic snaps from hospital gown) after his surgery. KUB 04/02 now with 10 FBs mostly in large bowel-I do not suspect new FBs ingested in the last day but likely just some of these were bunched together on previous xray or obscured by contrast from previous UGI study Healing well post-op from ex lap His diet was advanced to low fiber on 04/02, but then had 1 episode of vomiting which resulted in metallic foreign body getting stuck in the throat He was transferred to the ICU for observation for airway protection and ENT removed foreign body in the throat under direct laryngoscopy on the morning of 04/03 He then had an episode of emesis with either hemoptysis versus hematemesis on the afternoon of 04/03 and again noted on x-ray to have recurrent metallic foreign body in the throat CT soft tissues neck, chest, and abdomen/pelvis performed-fortunately throat foreign body was gone-suspect he swallowed it, and multiple foreign bodies remain in the stomach and bowels. No evidence of perforation -on 04/03, Attempts to get patient EGD to remove the residual metallic foreign bodies persisting in the stomach were unsuccessful both with local GI and calling to [facility] (on divert, no beds available), [facility] (GI and triage medical equipment sales did not feel transfer was necessary and that general GI could perform the endoscopy), and [facility] felt he would be better served at [facility]. Half[facility] Captain contacted by pool lifeguard and does not savannah rove transfer to [facility] [place], operated by [facility] unless it is a life or situation. At this time, he is stable and it is not an emergency to transfer him. 04/04, reached out to [facility] and spoke with GI Dr. Burdick who also did not feel a transfer was necessary and that his EGD would not be considered high risk and could be performed at our facility by a willing GI doctor. Discussed with Dr. Villalobos who also d/w Dr. Shrestha (sanitation worker cleaning machinery george ) who remain in agreement to not scope here at this time. Dr. Villalobos now thinks can continue conservative measures, await for FBs to pass on own, serial xrays. On 04/05, abdominal x-ray again shows even more new foreign bodies with 1 large foreign body in the stomach but is radiopaque and coiled around. Patient admits to hiding objects in his nose since prior to admission and snorting them down into his throat and swallowing them. He told the nurse he thinks the current foreign body is the cord from his headphones. Again discussed with GI and do not suspect this will cause a problem and does not need to be removed by EGD. Fortunately, several of the previous metallic wire like foreign bodies that were in the stomach are now passed out of the stomach into the small intestine. GI recommending ethics consult to discuss appropriateness of continued treatment and procedures in this patient who continues to ingest foreign bodies in an effort of self-harm. Ethics consult completed and appreciated-see Dr. Das's note for details. 04/06-feels like still foreign body in nose-cannot visualize on exam On 04/07-with new high-grade SBO as above, now status post repeat ex lap -Follow daily KUBs -heavy metal screen negative -The custodial has dictated since 04/01 that the patient now remain in three-point restraints, he has a spit mask in place, and they have asked for soft mitts to be placed on both hands to prevent him from continuing to ingest more foreign bodies. This is crucial. I also have a one-on-one sitter in with the patient as he continued to ingest foreign bodies despite the presence of 2 custodial guards -Once diet is resumed, must be diet w/ safe tray, finger foods only to avoid all utensils -GI at [place] recommended against giving Reglan or other motility agents -consulted Psychiatry for assistance with management and understanding of ongoing ingestion behaviors -ENT performed nasopharyngoscope to look for foreign body in nose on 04/07 and this was negative for foreign body -Plan as above now for EGD on 04/[address] Alfredo Urban to remove remaining foreign bodies (3) Self-harming behavior: Plan: history of such - numerous occasions with various objects, often by way of ingestion as well as insertion of objects in the urethra. Unclear if this is due to psychiatric condition or malingering No foreign material, detachable material, small pieces/parts should be in arms raised with patient at any time. This includes drawstrings to close/waistbands, EKG stickers, and any loose material. Patient has a recurrent history of quickly ingesting or placing foreign materials into orifices. (4) Foreign body in urethra: Plan: Foreign body in urethra - 03/25 and 03/27 - removal on 2 occasions by [facility] in the OR via cystoscopy- Appreciate urology consultation He then poked a hole in his Hernandez catheter and deflated the balloon and pulled it out himself overnight on 03/31 No evidence of trauma to the penis on exam on 04/01 Received ceftriaxone 1 g IV daily empirically x 7 days recent urine cx negative Had presumed urinary retention of 1000mL on bladder scan on 04/02 AM and unsuccessful attempt at Hernandez placement as per RN-then pt voided large amount on own without difficulty-question if he is malingering with regards to retention but certainly could have reason to have retention due to multiple FB insertions, inflammation, stricture, etc. Pelvic xray 04/02 no radio-opaque FB Hernandez catheter replaced on 04/02-maintain for now -Again, taking precautions as above to avoid recurrent placement of foreign body in the urethra (5) Schizophrenia: Plan: Unclear if this is a true diagnosis [facility] records only have a diagnosis of antisocial personality disorder Typically is on lithium BID - level nontoxic range this am, Paxil, Remeron, and Haldol Earlier in his stay, increased haldol dose of 10mg HS has resolved the hearing of voices. Appreciate Psych consult (6) Depression: Plan: meds as above (7) Anxiety: Plan: meds as above (8) Microcytic anemia: Plan: Fe studies wnl could have thalassemia HEAVY METAL SCREEN negative (9) DVT prophylaxis: Plan: Hold Lovenox due to recent surgery-restart when safe from surgical standpoint Plan Disposition-custodial physician requested that he stay in the hospital until all foreign bodies have passed. Admission and Anticipated Discharge Date Admission Date: March 29, 2022 Subjective Patient vomited yesterday evening and this morning reported worsening abdominal pain and nausea. He did move his bowels yesterday but none since then and no flatus overnight. He still believes that he has a foreign body in his nose. KUB this morning showed small bowel obstruction. CT abdomen/pelvis ordered stat which showed high-grade small bowel obstruction with likely blockage being a foreign body in the right side of the abdomen. I discussed his care with general surgery today who did attempt to transfer him out to tertiary care center for urgent surgical evaluation but was denied acceptance and ultimately ended up having exploratory laparotomy and removal of foreign body here at this facility. I also discussed his care with ENT who performed a nasopharyngeal scope to look for foreign bodies in the nasopharynx. I also discussed his care with GI oracle fusion consultant, Dr. Duval who is planning to perform EGD tomorrow to remove remaining large foreign body objects from stomach Furthermore, I also discussed his case with the ethics oracle fusion consultant, Dr. Das. Review of Systems Review of Systems: All systems reviewed & are unremarkable except as noted in HPI & below Physical Exam Physical Exam: gen - NAD,AAOx3 mouth - mmm heart - RRR, s1 s2, no murmur lungs - CTA b/l abd -hypoactive bowel sounds, positive TTP diffuse abdomen and more firm on right side of abdomen, previous midline laparotomy incision CDI ext - no edema psych -flat affect, answers questions appropriately Results & Data Results & Data ([place]) Vital Signs (Past 12 Hours) Vital Signs Temp Pulse Pulse Pulse Resp BP Pulse Ox 04/07/22 18:05 36.4 C L 77 16 135/99 100 04/07/22 17:55 82 16 141/86 H 100 04/07/22 17:45 36.2 C L 87 16 137/83 100 04/07/22 16:07 37.9 C H 104 H 18 128/80 98 04/07/22 15:27 37.4 C 90 16 124/74 96 04/07/22 07:03 36.5 C 84 16 118/80 98 O2 Del Method O2 Flow Rate 04/07/22 18:05 Room Air 04/07/22 17:55 Room Air 04/07/22 17:45 Oxymask 5 04/07/22 16:07 Room Air 04/07/22 15:27 Room Air 04/07/22 07:03 Room Air Diagnostic Findings X-ray and CT abdomen/pelvis images personally reviewed by me and agree with the following reports: KUB X-Ray 04/07/22 08:00 KUB HISTORY: reassess foreign bodies COMPARISON: KUB 04/06/2022. FINDINGS: Multiple scattered metallic foreign bodies again seen throughout the abdomen and pelvis. The majority of these are located within the stomach. Overall, the number of metallic foreign bodies has slightly decreased. Dilated loop of small bowel within the left upper quadrant measuring 5.4 cm has slightly progressed. This raises the possibility of a developing small bowel obstruction. The lung bases are clear. No renal calculi. No ureteral calculi. No pneumoperitoneum or pneumatosis. IMPRESSION: 1. Dilated loop of small bowel within the left upper quadrant which has progressed. This is concerning for a small bowel obstruction. 2. Scattered metallic foreign bodies seen throughout the abdomen and pelvis which have slightly decreased in number compared to the prior study. 3. This report was called/faxed to the referring physician following dictation ACT 112: Negative or not required by law. Electronically signed by: Richard Aburto M.D. 04/07/2022 11:42 AM Abdomen/Pelvis CT 04/07/22 12:[address] WITHOUT CONTRAST CT DOSE: 292.98 mGy.cm HISTORY: Follow up study in a patient with foreign body ingestion assess for foreign body,SBO TECHNIQUE: Multiaxial CT images of the abdomen and pelvis were performed without contrast. A dose lowering technique was utilized adhering to the principles of ALARA. COMPARISON STUDY: KUB of same day, CT abdomen and pelvis 04/03/2022 FINDINGS: Limited exam without the use of IV contrast. Trace pericardial and pleural effusions. A 4 mm subpleural solid nodule of the basal left lower lobe has mildly decreased from the prior study and is likely infectious or inflammatory. No pneumatosis or pneumoperitoneum identified. The unenhanced spleen, pancreas and adrenal glands are unremarkable. Hyperdense material within the gallbladder lumen is suggestive of cholelithiasis versus v icarious excretion of contrast. Unremarkable liver. The kidneys are within normal limits. There is no hydronephrosis. Hernandez catheter within a decompressed urinary bladder. Small amount of pelvic ascites. Unremarkable aorta. There are 4 linear metallic density foreign bodies of the stomach, the largest of which measures 10.6 cm. 2.2 cm linear foreign body is noted within a loop of small bowel within the central upper abdomen on image 129. This is positioned transversely within the bowel however demonstrates no evidence of perforation or bowel wall thickening. 5 cm linear electronic plug-like device is noted within a loop of small bowel within the right midabdomen. Just distal to this transition point of a high-grade small bowel obstruction with dilated upstream loops measuring up to approximately 3.6 cm. Additional linear metallic density foreign body is noted within the loop of small bowel within the left abdomen on image 196. Similar-appearing foreign body is present within a small bowel loop within the abdominal right lower quadrant, image 235. Linear metallic density foreign bodies noted within the rectum, image 377. Postoperative changes of the stomach. The appendix is not well visualized. Postoperative changes of anterior abdominal wall. No acute fracture. IMPRESSION: 1. Limited exam without the use of IV contrast. 2. Numerous ingested foreign bodies as above within the stomach and bowel. No pneumoperitoneum to suggest bowel perforation. 3. Small bowel obstruction, likely high-grade with transition point within the abdominal right lower quadrant adjacent to one of the aforementioned ingested foreign bodies. 4. Trace pericardial and pleural effusions. ACT 112: Negative or not required by law. The above report was generated using voice recognition software. It may contain grammatical, syntax or spelling errors. Electronically signed by: Bernardino Rome M.D. 04/07/2022 1:47 PM PG Care Time/CCT Total # of Minutes Spent Total Time Spent with Patient: Total time spent is greater than 50% in coordination of care (as documented) at patient's floor/unit and/or counseling patient: Prolonged Care Time Prolonged Care Time: Yes Total Prolonged Care Time: 120 I spent another 120 minutes in prolonged service care of this patient between discussing his care with numerous specialists, reassessing him on multiple occasions and reviewing test results. Coding Level of Care Code 71208 Subseq Hosp Care Lvl 3 (25 - SIGNIFICANT, SEPARATELY IDENTIFIABLE ) Diagnoses Small bowel obstruction K56.609 Foreign body in stomach T18.2XXA Self-harming behavior Foreign body in urethra T19.0XXA Schizophrenia F20.0 Schizophrenia type: paranoid schizophrenia Depression F32.A Depression Type: unspecified Anxiety F41.9 Microcytic anemia D50.9 DVT prophylaxis Z29.9 Additional Codes Prolonged Care Time - Prolonged Care Time: Yes ([id number]) (1) Depression Depression Type: unspecified Qualified Code(s): F32.A - Depression, unspecified (2) Schizophrenia Schizophrenia type: paranoid schizophrenia Qualified Code(s): F20.0 - Paranoid schizophrenia
--- NOTE | 2022-04-07 19:00 | Anesthesiology Progress Note ---
Date of Service April 07, 2022 Anesthesia Post Procedure Vital Signs Vital Signs: Temp Pulse Pulse Pulse Resp BP Pulse Ox 04/07/22 18:50 37.4 C 78 16 135/84 98 04/07/22 18:20 38 C H 77 18 144/84 H 98 04/07/22 18:05 36.4 C L 77 16 135/99 100 04/07/22 17:55 82 16 141/86 H 100 04/07/22 17:45 36.2 C L 87 16 137/83 100 04/07/22 16:07 37.9 C H 104 H 18 128/80 98 04/07/22 15:27 37.4 C 90 16 124/74 96 04/07/22 07:03 36.5 C 84 16 118/80 98 04/06/22 21:21 04/06/22 21:21 04/06/22 23:22 37.2 C 84 14 129/87 96 Pulse Ox O2 Del Method O2 Del Method O2 Flow Rate 04/07/22 18:50 Room Air 04/07/22 18:20 Room Air 04/07/22 18:05 Room Air 04/07/22 17:55 Room Air 04/07/22 17:45 Oxymask 5 04/07/22 16:07 Room Air 04/07/22 15:27 Room Air 04/07/22 07:03 Room Air 04/06/22 21:21 Room Air 04/06/22 21:21 96 Room Air 04/06/22 23:22 Room Air Pain Intensity Abdomen: Pain Intensity: 0 Transfer of Care Handoff Completed per policy Notes Mental Status: alert / awake / arousable Patient Amnestic to Procedure: Yes Nausea / Vomiting: adequately controlled Pain: adequately controlled Airway Patency, RR, SpO2: stable & adequate BP & HR: stable & adequate Hydration State: stable & adequate Anesthetic Complications: no major complications apparent
--- NOTE | 2022-04-07 19:49 | ENT Consultation ---
Date of Consultation April 07, 2022 Assessment & Plan (1) Foreign body: NO foreign body seen in the Nasal Cavity. NO foreign body seen in the Nasopharynx. NO foreign body seen in the Oropharynx. Plan NO Otolaryngologic services needed at this time. Discussed with patient's attending physician. History of Present Illness Reason for Consultation: Rule out Foreign Body in tammy Nose. Requesting Physician: Enid Jones MD Attending Physician: Enid Jones MD History of Present Illness 22 y.o. male admitted for Foreign Body injections on 25 MAR 2022. He has repeatedly swallowed foreign bodies and inserted items into his urethra. He has Schizophrenia. 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. He has had multiple procedures during this admission. He is complainin of a sensation of a foreign body in his nose, but cannot report IF or When an item was inserted. He is currently just Post-Operative from a second exploratory laparotomy for Foreign Body injection. Allergies Allergy/AdvReac Type Severity Reaction Status Date / Time No Known Allergies Allergy Verified 03/25/22 00:50 Home Medications Medication Instructions Recorded Confirmed Type haloperidol 10 mg tablet 10 mg PO HS 03/25/22 03/25/22 History haloperidol 5 mg tablet 5 mg PO HS 03/25/22 03/25/22 History lithium carbonate 300 mg capsule 300 mg PO BID 03/25/22 03/25/22 History mirtazapine 45 mg tablet 45 mg PO HS 03/25/22 03/25/22 History paroxetine HCl 10 mg tablet 10 mg PO HS 03/25/22 03/25/22 History paroxetine HCl 20 mg tablet 20 mg PO HS 03/25/22 03/25/22 History polyethylene glycol 3350 17 gram 17 g PO BID 03/25/22 03/25/22 History oral powder packet (Miralax) Patient History Medical History Anxiety Depression Foreign body in urethra H/O swallowed foreign body Schizophrenia Suicidal ideation Surgical History H/O cystoscopy H/O esophagogastroduodenoscopy H/O exploratory laparotomy Social History Smoking Status: Never smoker Tobacco Type: Cigarettes Second Hand Exposure: No; Hx Alcohol Use: No Hx Substance Use: No Preferred Language: Dominican Communication Ability: Effective Senior Accounting Clerk Required: No Beliefs That Will Affect Care: None marital status: Single Current Living Situation: Other Current Living Situation Comment: [facility]. How many Children do You have: 0 Feels Safe at Home: Yes Assistive Devices: None Review of Systems Review of Systems: Unremarkable after 10 days of hospitalization. NO significant changes from his Admission History and Physical. Physical Exam Constitutional: WD/WN, vitals as above Eyes: PERRL, conjunctivae normal, anicteric sclerae ENMT: external ear and nose normal, oropharynx normal Ears: no EAC abnormality (Mild Cerumen.) and no TM abnormality Nose: no external nose abnormality, no turbinate abnormality, no nasal mucous membrane abnormality, no septum abnormality, no nasal discharge, no nare abnormality, no epistaxis, no foreign body in naris and no nasal polyps Mouth: no lip abnormality, no oropharynx abnormality, no oral mucosal abnormality, no tongue abnormality, no gingival abnormality and no chipped teeth Throat: uvula midline; no posterior oropharynx abnormality, no tonsil abnormality and no postnasal drainage NO foreign body identified in the Nasal by anterior rhinoscopy. NO foreign body identified by indirect nasopharyngoscopy. Results & Data ([facility]) Vital Signs (Past 12 Hours) Vital Signs Temp Pulse Pulse Pulse Resp BP Pulse Ox 04/07/22 19:20 36.9 C 86 16 142/80 H 95 04/07/22 18:50 37.4 C 78 16 135/84 98 04/07/22 18:20 38 C H 77 18 144/84 H 98 04/07/22 18:05 36.4 C L 77 16 135/99 100 04/07/22 17:55 82 16 141/86 H 100 04/07/22 17:45 36.2 C L 87 16 137/83 100 04/07/22 16:07 37.9 C H 104 H 18 128/80 98 04/07/22 15:27 37.4 C 90 16 124/74 96 O2 Del Method O2 Flow Rate 04/07/22 19:20 Room Air 04/07/22 18:50 Room Air 04/07/22 18:20 Room Air 04/07/22 18:05 Room Air 04/07/22 17:55 Room Air 04/07/22 17:45 Oxymask 5 04/07/22 16:07 Room Air 04/07/22 15:27 Room Air Diagnostic Findings Plain Film X-rays of the Skull / Sinuses / Soft Tissue neck are reviewed by me from 05 APR 2022. NO foreign body identified. Radiology Report: XR sinus min 3V routine CLINICAL HISTORY: assess for foreign bodies COMPARISON STUDY: None available at time of interpretation due to PACS downtime. FINDINGS: No radiopaque foreign bodies are identified within the nasal cavity. No fractures are identified. IMPRESSION: No radiopaque foreign bodies identified.
[2022-04-07] MEDS: MIRTAZAPINE SOLTAB 15 MG PO SCH (20:17)
[2022-04-07] MEDS: haloperidoL 5 MG TAB PO SCH (20:18)
[2022-04-07] MEDS: PARoxetine HCL 20 MG TAB PO SCH (20:19)
[2022-04-07] MEDS: KETOROLAC TROMETHAMINE 15 MG/ML VIAL IV PRN (20:21)
[2022-04-08] MEDS: MoRPHine SULFATE 4 MG/ML 1 ML CARP\\VIAL IV PRN ×4 (01:35→20:32)
[2022-04-08] MEDS: ACETAMINOPHEN 325 MG TAB PO PRN ×3 (01:36→19:59)
[2022-04-08] MEDS: D5W AND LACTATED RINGERS 1,000 ML IV SCH ×2 (02:00→10:50)
[2022-04-08 07:09] LABS: Basophils # (auto) 0.03 K/uL (0-0.2); Basophils % (auto) 0.2 %; Eosinophils # (auto) 0.01 K/uL (0-0.50); Eosinophils % (auto) 0.1 %; Hematocrit (blood only) 37.8 % (40.1-51.0); Hemoglobin 12.2 g/dl (14.0-18.0); Immature Granulocytes # (auto) 0.04 K/uL (0.00-0.02); Immature Granulocytes % (auto) 0.3 %; Lymphocytes # (auto) 1.33 K/uL (1.2-3.4); Lymphocytes % (auto) 9.4 %; Mean Corpuscular Hemoglobin 24.4 pg (25.0-34.0); Mean Corpuscular Hgb Conc 32.3 g/dL (32.0-36.0); Mean Corpuscular Volume 75.6 fL (80.0-100.0); Mean Platelet Volume 10.3 fL (9.4-12.4); Monocytes # (auto) 1.02 K/uL (0.24-0.82); Monocytes % (auto) 7.2 %; Neutrophils # (auto) 11.67 K/uL (1.4-6.5); Neutrophils % (auto) 82.8 %; Platelet Count 274 K/uL (130-400); RDW Coefficient of Variation 13.2 % (11.5-14.5); RDW Standard Deviation 35.6 fL (36.4-46.3)
[2022-04-08 07:33] LABS: Albumin Globulin Ratio 1.1 (0.9-2); Albumin Level 3.9 gm/dl (3.4-5.0); BUN Creatinine Ratio 15.3 (10-20); Bilirubin,Total 0.5 mg/dl (0.2-1.0); Calcium 9.1 mg/dl (8.5-10.1); Creatinine Clr Calc Pharmacy 91.3 ml/min; Est GFR (African American) 88.9 ml/min; Est GFR (Non-African American) 76.7 ml/min; Globulin 3.4 gm/dl (2.5-4.0); Magnesium 1.8 mg/dl (1.7-2.4); Phosphorus 3.6 mg/dl (2.5-4.9); Potassium 3.6 mmol/L (3.5-5.1); Total Protein 7.3 gm/dl (6.0-8.3)
[2022-04-08] MEDS: LITHIUM CARBONATE 300 MG TAB PO SCH ×2 (08:57→20:01)
--- NOTE | 2022-04-08 09:23 | XRay Report ---
KUB HISTORY: f/u surgery for small bowel obstruction COMPARISON: KUB 04/07/2022. FINDINGS: Dilated gas-filled loops of small bowel are again noted. These measure up to 5 cm in diamet er. Small of gas within the colon. The dominant radiopaque foreign body within the right side the abd omen has been removed. Additional scattered curvilinear metallic foreign bodies within the stomach, s mall bowel, and ascending colon persist. No renal calculi. No ureteral calculi. IMPRESSION: 1. Dilated gas-filled loops of small bowel are again noted. This could be due to a persistent small b owel obstruction or postoperative ileus. Continued follow-up recommended. 2. Interval removal of the dominant radiopaque foreign body within the right side of the abdomen. The remaining metallic foreign bodies are again noted. ACT 112: Negative or not required by law. Electronically signed by: Richard Aburto M.D. 04/08/2022 9:22 AM
--- NOTE | 2022-04-08 10:07 | Gastrointestinal Consultation ---
Date of Consultation April 08, 2022 Assessment & Plan (1) Foreign body in stomach: Plan EGD today by Dr. Duval. Please keep NPO. Further recommendations to follow EGD. Supervising Physician Co-Signing Physician Notes I performed a history and physical examination of the patient today, including specifically on physical exam - soft abdomen. I have discussed the patient's management with the advanced practitioner. Please refer to the nurse practitioner's note for the documented findings and plan of care. He feels fine today, no abdominal pain. Wound looks fine. Plan for EGD to remove the foreign bodies in the stomach. Patient was explained in detail regarding risks, benefits, limitations and alternatives of the above endoscopic procedure. Risks of intravenous sedation used for procedure were also explained. Risks include, but not limited to perforation, bleeding, infection, respiratory distress, cardiac arrest and . Patient is also aware about the possibility of missed lesion. Patient's questions were answered. The patient verbalized understanding the information and agreed to undergo the procedure. History of Present Illness Reason for Consultation: Stomach foreign body Requesting Physician: Dr Jones Attending Physician: Sylvain Loya History of Present Illness Mr. Simon is a 22-year-old inmate at [facility], with a history of schizophrenia and prior swallowing of foreign bodies. He had just undergone major bowel surgery for SBO and removal of a foreign object 11 days ago, then was brought to the ED yesterday again for abdominal pain and imaging was again suggestive of small bowel obstruction from adhesions as well as foreign object. He underwent repeat Exploratory Laparotomy, Small Bowel Enterotomy with Removal of a connector portion of a pulse oximeter. GI is consulted for removal of an additional foreign body from his stomach. X-ray this morning with continued dilation of the small bowel but no suggestion of obstruction and still w metalic foreign objets in the stomach. On exam, he is awake, alert, oriented, c/o 10 of 10 pain. Abd is non distended and soft on palpation, there a hypoactive BS present. Allergies Allergy/AdvReac Type Severity Reaction Status Date / Time No Known Allergies Allergy Verified 03/25/22 00:50 Home Medications Medication Instructions Recorded Confirmed Type haloperidol 10 mg tablet 10 mg PO HS 03/25/22 03/25/22 History haloperidol 5 mg tablet 5 mg PO HS 03/25/22 03/25/22 History lithium carbonate 300 mg capsule 300 mg PO BID 03/25/22 03/25/22 History mirtazapine 45 mg tablet 45 mg PO HS 03/25/22 03/25/22 History paroxetine HCl 10 mg tablet 10 mg PO HS 03/25/22 03/25/22 History paroxetine HCl 20 mg tablet 20 mg PO HS 03/25/22 03/25/22 History polyethylene glycol 3350 17 gram 17 g PO BID 03/25/22 03/25/22 History oral powder packet (Miralax) Patient History Medical History Anxiety Depression Foreign body in urethra H/O swallowed foreign body Schizophrenia Suicidal ideation Surgical History H/O cystoscopy H/O esophagogastroduodenoscopy H/O exploratory laparotomy Social History Smoking Status: Never smoker Tobacco Type: Cigarettes Second Hand Exposure: No; Hx Alcohol Use: No Hx Substance Use: No Preferred Language: Puerto Rican Communication Ability: Effective Studio Receptionist Required: No Beliefs That Will Affect Care: None marital status: Single Current Living Situation: Other Current Living Situation Comment: [facility]. How many Children do You have: 0 Feels Safe at Home: Yes Assistive Devices: None Review of Systems Review of Systems: ROS: Gen: Denies weakness, fevers, weight loss Eyes: No eye redness, or pain, no recent vision changes Resp: No SOB, no cough Cardio: No palpitations/irregular beats, no chest pain GI: As per HPI, otherwise (-) : Denies pain on urination Skin: No jaundice, itching or new rashes Physical Exam Constitutional: WD/WN, vitals as above Eyes: PERRL, conjunctivae normal, anicteric sclerae ENMT: external ear and nose normal, oropharynx normal Neck: trachea midline, no thyromegaly Respiratory: normal respiratory effort, lungs clear to auscultation Cardiovascular: RRR, no murmur, no edema Gastrointestinal (Abdomen): Inspection/Auscultation: + hypoactive bowel sounds; abdomen not distended and no abdominal edema Percussion/Palpation: + abdomen tender (moderately tender in the LLQ, mild tenderness elsewhere) and abdomen soft; no abdominal mass large incision healing w/o redness/edema or discharge Musculoskeletal: no cyanosis or clubbing, extremities motor strength 5/5 Skin: no rashes, warm and dry Neurologic: PERRL, EOMI, accommodation nl, no face palsy, no dysarthria Lymphatic: no cervical or axillary lymphadenopathy Results & Data ([facility]) Vital Signs (Past 12 Hours) Vital Signs Temp Pulse Resp BP Pulse Ox O2 Del Method 04/08/22 08:07 37.3 C 98 H 16 125/74 97 Room Air 04/08/22 03:21 37.8 C H 04/07/22 22:09 37.7 C H 110 H 14 131/75 97 Room Air Laboratory Results WBC 14, Hb 12.2, HCT 37.8, PLT S274, PT 11, INR 1, NA 137, K3.6, CL 102, CO2 29, BUN 20, CR 1.3, glucose 138 LFTs are normal. Diagnostic Findings KUB today: 1. Dilated gas-filled loops of small bowel are again noted. This could be due to a persistent small bowel obstruction or postoperative ileus. Continued follow-up recommended. 2. Interval removal of the dominant radiopaque foreign body within the right side of the abdomen. The remaining metallic foreign bodies are again noted. Non contrast CTAP yesterday (prior to laproscopy): 1. Limited exam without the use of IV contrast. 2. Numerous ingested foreign bodies as above within the stomach and bowel. No pneumoperitoneum to suggest bowel perforation. 3. Small bowel obstruction, likely high-grade with transition point within the abdominal right lower quadrant adjacent to one of the aforementioned ingested foreign bodies. 4. Trace pericardial and pleural effusions.
[2022-04-08] MEDS ORDERED: TPN/PPN CONSULT PHARMACY PRN (10:53)
[2022-04-08] MEDS ORDERED: DEXTROSE 10% 1,000 ML IV PRN (11:45)
--- NOTE | 2022-04-08 12:54 | Communication Note ---
Date of Service: April 08, 2022 case reviewed briefly with Dr. Loya as patient known to me from various admissions. Although he reports command hallucinations I do not feel that schizo phrenia is the direct cause of his ingestions, SIB. Haldol could be increased to 5 mg am and 10 mg pm then to 10 mg BID after a few days to further trial but does not treat antisocial personality or chronic self-injurious behavior related to factitious disorder or malingering.
--- NOTE | 2022-04-08 14:02 | Pharmacy Report ---
Pharmacy PN Initial Consult - Date of Service April 08, 2022 - Scope Pharmacy has been consulted to manage parenteral nutrition orders and order appropriate labs. As part of the Nutrition Support Team guidelines, pharmacy will work in conjunction with dietary when determining the patients caloric needs. - Subjective The patient is a 22 year old M admitted on 03/29/22 09:34 for FB IN STOMACH AND PENIS. Patient is to receive parenteral nutrition for chronic NPO status due to FB in stomach and SBO Pertinent PMH: N/A - Objective Height: 5 ft 10 in Weight: 81 kg Diet: NPO Vascular Access:: peripheral Intake & Output (Last 24Hrs): Intake & Output 04/06/22 04/07/22 04/08/22 04/09/22 06:59 06:59 06:59 06:59 Intake Total 3000 / 3000 50.5 / 50.5 1500 / 1500 1000 / 1000 Output Total 2450 / 2450 1300 / 1300 685 / 685 Balance 550 / 550 -1249.5 / -1249.5 815 / 815 1000 / 1000 Weight 81 kg 81 kg Laboratory Data (Last 24 Hrs):: 04/08/22 06:54 Sodium 137 Potassium 3.6 Chloride 102 Carbon Dioxide 29 BUN 20 Creatinine 1.31 Glucose 138 H Calcium 9.1 Phosphorus 3.6 Magnesium 1.8 Total Bilirubin 0.5 AST 13 ALT 10 Alkaline Phosphatase 51 Albumin 3.9 Nutrition Assessment:: Please refer to the Notes section of the EMR for the most recent bolt sawyer note. - Plan For day 1 of PN administration, the following will be ordered: Macronutrients Amino acids 51 grams/day Dextrose 60 grams/day Lipids 50 grams/day Micronutrients Combined electrolytes -- mL - contains 35 mEq Na, 20 meq K, 4.5 mEq Ca, 5 mEq Mg, 35 mEq Cl, 29.5 mEq acetate per 20 mL Sodium phosphate -- MMol Sodium chloride 70 mEq Sodium acetate 70 mEq Potassium phosphate 21 mMol Potassium chloride -- mEq Potassium acetate -- mEq Magnesium sulfate 8.12 mEq Calcium gluconate 4.65 mEq Multivitamins 10 mL Trace Elements 10 mL Additional additives: THIAMINE 100 MG + FOLIC ACID 1 MG Total volume 1294 mL to be infused over 24 hrs will provide 908 kcal/day Final osmolarity 897 mOsm/L (maximum for PPN is 900 mOsm/L) Labs to be ordered per PN order protocol Pharmacy will follow and adjust parenteral nutrition orders on a daily basis. Thank you.
--- NOTE | 2022-04-08 14:46 | Surgery Progress Note ---
Date of Service April 08, 2022 Assessment & Plan (1) Small bowel obstruction: (2) Foreign body in stomach: Plan POD 12 and 1 s/p ex laparotomies for foreign objects in stomach and small bowel respectively. NPO for EGD today; then NPO until flatus SCDs and Lovenox for DVT prophylaxis Aggressive pulmonary toilet strict isolation from all things able to be swallowed Admission and Anticipated Discharge Date Admission Date: March 29, 2022 Subjective POD 12 s/p ex lap with gastrotomy and removal of foreign bodies; POD 1 s/p ex lap with enterotomy and removal of foreign body due to SBO. doing fairly well. some lower abdominal pain. no flatus. no nausea/vomiting. no fevers. awaiting EGD today. Physical Exam Physical Exam: Abdomen soft, mild TTP LLQ, minimal distention; incision healing well with dermabond; no signs of infection Results & Data ([facility]) Vital Signs (Past 12 Hours) Vital Signs Temp Pulse Resp BP Pulse Ox O2 Del Method 04/08/22 12:00 37.3 C 101 H 16 126/69 99 Room Air 04/08/22 08:07 37.3 C 98 H 16 125/74 97 Room Air 04/08/22 03:21 37.8 C H
[2022-04-08] MEDS ORDERED: PERIPHERAL TPN IV SCH (16:00)
[2022-04-08] MEDS ORDERED: D5W IV SCH (16:00)
[2022-04-08] MEDS ORDERED: AMINO ACIDS 4.25% IV SCH (16:00)
--- NOTE | 2022-04-08 17:22 | History & Physical Bridge Note ---
Date of Service April 08, 2022 History & Physical Bridge Note I have examined the patient, reviewed the History & Physical and in the interval since the performance of the History & Physical I have noted the following changes of clinical significance: no changes noted Patient had laparotomy yesterday, he is currently doing well, AOx3 and well competent to take decisions and consent for the EGD now.
[2022-04-08] MEDS ORDERED: MIDAZOLAM HCL 1 MG/ML 2ML VIAL ONE (17:23)
[2022-04-08] MEDS ORDERED: ePHEDrine sulfate 50 MG/ML AMP IV PRN (17:35)
[2022-04-08] MEDS ORDERED: ONDANSETRON INJ 2 MG/ML 2 ML VIAL IV PRN (17:35)
[2022-04-08] MEDS ORDERED: LABETALOL HCL IV 5 MG/ML 20ML IV PRN (17:35)
[2022-04-08] MEDS ORDERED: ATROPINE SULFATE 0.1 MG/ML 10ML SYR IV PRN (17:35)
[2022-04-08] MEDS ORDERED: PHENYLEPHRINE 100MCG/ML 5ML SYR IV PRN (17:35)
--- NOTE | 2022-04-08 17:35 | Anesthesiology Consultation ---
Date of Service April 08, 2022 Assessment & Plan (1) Encounter for pre-operative examination: Chart Review Chart Review: Acceptable Risk for Surgery and Patient NOT seen in Pre Admission Testing History Surgery Operation Date: 03/25/22 00:15 Proposed Procedures p Cystoscopy - José Luis Burton DO Operation Date: 03/25/22 10:35 Proposed Procedures p Esophagogastroduodenoscopy - Henri Anderson Jr, MD Operation Date: 03/26/22 09:40 Proposed Procedures p Esophagogastroduodenoscopy Foreign Body Removal - Henri Anderson Jr, MD Operation Date: 03/27/22 14:10 Proposed Procedures p Exploratory Laparotomy, Gastrotomy Removal of Foreign Body - José Luis murillo MD s Cystoscopy - Anton Randall MD Operation Date: 03/28/22 10:05 Proposed Procedures p Esophagogastroduodenoscopy - Aki Duval MD s Possible Laparotomy Gastrostomy Removal - José Luis Paiz MD Operation Date: 04/03/22 07:00 Proposed Procedures s Esophagoscopy - Tonja Orantes MD p Endoscopic Foreign Body Removal - Tonja Orantes MD Operation Date: 04/03/22 09:50 Proposed Procedures p Esophagogastroduodenoscopy - Luc Villalobos MD Operation Date: 04/07/22 08:50 Proposed Procedures p Exploratory Laparotomy, Small Bowel Obstruction - José Luis Paiz MD Operation Date: 04/08/22 08:00 Proposed Procedures p Esophagogastroduodenoscopy - Aki Duval MD Height/Weight Height: 5 ft 10 in Weight: 81 kg Allergies Allergy/AdvReac Type Severity Reaction Status Date / Time No Known Allergies Allergy Verified 03/25/22 00:50 Medications Home Medications Medication Instructions Recorded Confirmed Last Taken haloperidol 10 mg tablet 10 mg PO HS 03/25/22 03/25/22 03/23/22 haloperidol 5 mg tablet 5 mg PO HS 03/25/22 03/25/22 03/23/22 lithium carbonate 300 mg capsule 300 mg PO BID 03/25/22 03/25/22 03/24/22 06:30 mirtazapine 45 mg tablet 45 mg PO HS 03/25/22 03/25/22 03/23/22 paroxetine HCl 10 mg tablet 10 mg PO HS 0903/25/22 03/23/22 paroxetine HCl 20 mg tablet 20 mg PO HS 03/25/22 03/25/22 03/23/22 polyethylene glycol 3350 17 gram 17 g PO BID 03/25/22 03/25/22 03/24/22 06:30 oral powder packet (Miralax) Active Medications Generic Name Dose Route Start Last Admin Trade Name Freq PRN Reason Stop Dose Admin Acetaminophen 650 mg 04/05/22 22:05 04/08/22 08:56 Acetaminophen 325 Mg Tab PO 05/05/22 22:04 650 mg Q4H PRN Administration Pain Haloperidol 10 mg 03/29/22 21:00 04/07/22 20:18 Haloperidol 5 Mg Tab PO 04/28/22 20:59 10 mg HS WAYNE Administration Ketorolac Tromethamine 15 mg 04/05/22 22:05 04/07/22 20:21 Ketorolac Tromethamine 15 Mg/Ml Vial IV 04/10/22 22:04 15 mg Q6H PRN Administration Moderate-severe pain [place] Carbonate 300 mg 03/26/22 21:00 04/08/22 08:57 [place] Carbonate 300 Mg Tab PO 04/25/22 20:59 300 mg BID WAYNE Administration Mirtazapine 45 mg 03/27/22 21:00 04/07/22 20:17 Mirtazapine Soltab 15 Mg PO 04/26/22 20:59 45 mg HS WAYNE Administration Protocol Morphine Sulfate 4 mg 04/07/22 18:36 04/08/22 16:20 Morphine Sulfate 4 Mg/Ml 1 Ml Carp\Vial IV 04/21/22 18:35 4 mg Q4H PRN Administration moderate-severe Pain Ondansetron HCl 4 mg 03/28/22 13:40 04/07/22 20:20 Ondansetron Inj 2 Mg/Ml 2 Ml Vial IV 04/27/22 13:39 4 mg Q6H PRN Administration Nausea And Vomiting Paroxetine HCl 30 mg 03/25/22 02:45 04/07/22 20:19 Paroxetine Hcl 20 Mg Tab PO 04/24/22 02:44 30 mg HS WAYNE Administration NPO Date Last Intake of Fluids: 04/06/22 Time Last Intake of Fluids: 18:00 Date Last Intake of Solids: 04/06/22 Time Last Intake of Solids: 18:00 Past Medical History Medical History Anxiety Depression Foreign body in urethra H/O swallowed foreign body Schizophrenia Suicidal ideation Past Surgical History Surgical History H/O cystoscopy H/O esophagogastroduodenoscopy H/O exploratory laparotomy Social History Smoking Status: Never smoker tobacco type: cigarettes Do You Dip or Chew Tobacco: No Hx Alcohol Use: No Hx Substance Use: No substance use type: does not use Physical Exam Vital Signs Last Vital Signs Temp 38.6 C H 04/08/22 17:10 Pulse 101 H 04/08/22 17:10 Resp 20 04/08/22 17:10 BP 138/91 04/08/22 17:10 Pulse Ox 98 04/08/22 17:10 O2 Del Method 04/08/22 17:10 O2 Flow Rate 5 04/07/22 17:45 ENMT Mouth: no TMJ abnormality Thyromental Distance: > or= 3.5 Finger Breadths Mallampati Class: II Neck normal visual inspection Respiratory normal respiratory effort Auscultation: lungs clear to auscultation bilaterally Cardiovascular Rate/Rhythm: regular rate and regular rhythm Musculoskeletal Spine: normal cervical ROM Neurologic moves all extremities Psychiatric Orientation: alert and oriented x 3 Testing Laboratory Results 04/08/22 06:54 04/08/22 06:54 PT 11.1 Seconds (9.0-12.0) 03/24/22 20:48 INR 1.0 (0.9-1.1) 03/24/22 20:48 APTT 24.6 Seconds (21.0-31.0) 03/24/22 20:48 Urine Color Yellow 03/25/22 Unknown Urine Appearance Slightly Cloudy (Clear) A 03/25/22 Unknown Urine pH 8.0 (4.5-7.5) H 03/25/22 Unknown Ur Specific Atkins > 1.045 (1.000-1.030) H 03/25/22 Unknown Urine Protein Negative (Negative) 03/25/22 Unknown Urine Glucose (UA) Negative (Negative) 03/25/22 Unknown Urine Ketones Negative (Negative) 03/25/22 Unknown Urine Nitrite Negative (Negative) 03/25/22 Unknown Ur Leukocyte Esterase 2+ (Negative) H 03/25/22 Unknown Urine WBC (Auto) >30 /hpf (0-5) H 03/25/22 Unknown Urine RBC (Auto) 0-4 /hpf (0-4) 03/25/22 Unknown U Hyaline Cast (Auto) 1-5 /lpf (0-5) 03/25/22 Unknown U Epithel Cells (Auto) 5-10 /lpf (0-5) H 03/25/22 Unknown Urine Bacteria (Auto) Negative (Negative) 03/25/22 Unknown 03/25/22 Unknown Urine Culture - Final Urine,Clean Catch Three types or organisms present, all moderate counts probable skin jerilyn. No further identifications or sensitivities to follow.
[2022-04-08] MEDS ORDERED: PROPOFOL IV EMULSION 10 MG/ML 20 ML VIAL IV ONE (18:04)
[2022-04-08] MEDS ORDERED: LIDOCAINE 2% MPF LOCAL 5 ML VIAL INFIL ONE (18:04)
--- NOTE | 2022-04-08 18:07 | Operative Report ---
Post Operative Report Pre & Post Diagnosis Operation Date: 03/25/22 00:15 Pre-Op Diagnosis: Foreign Body Post-Op Diagnosis: Foreign Body Operation Date: 03/25/22 10:35 <No data on this case meets the specified criteria> Operation Date: 03/26/22 09:40 Pre-Op Diagnosis: foreign body in stomach and penis Post-Op Diagnosis: foreign body in stomach and penis Operation Date: 03/27/22 14:10 Pre-Op Diagnosis: foreign body in stomach and penis Post-Op Diagnosis: foreign body in stomach and penis Operation Date: 03/28/22 10:05 Pre-Op Diagnosis: FB IN STOMACH AND PENIS Post-Op Diagnosis: foreign body removal in stomach Operation Date: 04/03/22 07:00 Pre-Op Diagnosis: Foreign body ingested Post-Op Diagnosis: Foreign body ingested Operation Date: 04/03/22 09:50 <No data on this case meets the specified criteria> Operation Date: 04/07/22 08:50 Pre-Op Diagnosis: Small bowel obstruction Post-Op Diagnosis: Small bowel obstruction Operation Date: 04/08/22 08:00 Pre-Op Diagnosis: FB IN STOMACH AND PENIS Post-Op Diagnosis: FB IN STOMACH AND PENIS I identified the patient and participated in the time-out.: Yes Procedure Operation Date: 03/25/22 00:15 Actual Procedures p Cystoscopy, Removal of Foreign Body - José Luis Burton DO Operation Date: 03/25/22 10:35 <No data on this case meets the specified criteria> Operation Date: 03/26/22 09:40 Actual Procedures p Esophagogastroduodenoscopy - Henri Anderson Jr, MD Operation Date: 03/27/22 14:10 Actual Procedures p Exploratory Laparotomy, Gastrotomy Removal of Foreign Body(Not Applicable) - José Luis Paiz MD s Cystoscopy, removal of foreign body(Not Applicable) - Anton Randall MD Operation Date: 03/28/22 10:05 Actual Procedures p Esophagogastroduodenoscopy with foreign body removal - Aki Duval MD Operation Date: 04/03/22 07:00 Actual Procedures p Esophagoscopy, laryngoscopy with foreign body removal(Not Applicable) - Tonja Orantes MD Operation Date: 04/03/22 09:50 <No data on this case meets the specified criteria> Operation Date: 04/07/22 08:50 Actual Procedures p Exploratory Laparotomy, Small Bowel Enterotomy with Removal of Foreign Body(Not Applicable) - José Luis Paiz MD Operation Date: 04/08/22 08:00 <No data on this case meets the specified criteria> Surgeon Aki Duval MD Money Market Dealer None Estimated Blood Loss 10 Findings See Below (Many foreign bodies removed from the stomach) Specimens None- Description of Procedure EGD I attest to the content of the Intraoperative Record and any orders documented therein. Any exceptions are noted below.
--- NOTE | 2022-04-08 18:16 | GI REPORT ---
Patient Name: Stefan Simon Procedure Date: 04/08/2022 4:19 PM Date of : 2000 Admit Type: Inpatient Age: 22 Gender: Male Attending MD: Aki Duval MD Procedure: Upper GI endoscopy Providers: Aki Duval MD Referring MD: Sylvain Loya Indications: Foreign body in the stomach Medicines: Propofol per Anesthesia Complications: No immediate complications. Estimated Blood Loss: Estimated blood loss: none. Procedure: Pre-Anesthesia Assessment: - Prior to the procedure, a History and Physical was performed, and patient medications, allergies and sensitivities were reviewed. The patient's tolerance of previous anesthesia was reviewed. - The risks and benefits of the procedure and the sedation options and risks were discussed with the patient. All questions were answered and informed consent was obtained. - Patient identification and proposed procedure were verified prior to the procedure by the physician and the nurse. The procedure was verified in the procedure room. - Pre-procedure physical examination revealed no contraindications to sedation. After obtaining informed consent, the endoscope was passed under direct vision. Throughout the procedure, the patient's blood pressure, pulse, and oxygen saturations were monitored continuously. The Endoscope was introduced through the mouth, and advanced to the third part of duodenum. The upper GI endoscopy was accomplished without difficulty. The patient tolerated the procedure well. Findings: The examined esophagus was normal. Medication cup, metal wire and cables were found in the gastric fundus. Removal was accomplished with a snare. The duodenal bulb and second portion of the duodenum were normal. Impression: - Normal esophagus. - Foreign bodies were found in the stomach. Removal was successful. - Normal duodenal bulb and second portion of the duodenum. Recommendation: - [facility]. - Recall GI if needed. Aki Duval MD 04/08/2022 6:15:39 PM This report has been signed electronically. Note Initiated On: 04/08/2022 4:19 PM Number of Addenda: 0 I attest to the content of the Intraoperative Record and orders documented therein, exceptions below {[id number]}
[2022-04-08] MEDS: fentaNYL citrate 100 MCG/2 ML VIAL IV PRN ×2 (18:37→18:44)
--- NOTE | 2022-04-08 18:43 | Anesthesiology Progress Note ---
Date of Service April 08, 2022 Anesthesia Post Procedure Vital Signs Vital Signs: Temp Pulse Pulse Resp BP Pulse Ox Pulse Ox 04/08/22 18:35 108 H 21 150/91 H 100 04/08/22 18:25 37.8 C H 108 H 22 147/82 H 100 04/08/22 18:15 37.2 C 116 H 16 136/106 H 100 04/08/22 17:10 38.6 C H 101 H 20 138/91 98 04/08/22 14:51 36.7 C 105 H 20 128/69 97 04/08/22 12:00 37.3 C 101 H 16 126/69 99 04/08/22 08:07 37.3 C 98 H 16 125/74 97 04/07/22 20:15 04/07/22 20:15 97 04/08/22 03:21 37.8 C H 04/07/22 21:20 37.7 C H 105 H 16 143/77 H 96 04/07/22 22:09 37.7 C H 110 H 14 131/75 97 04/07/22 21:08 37.1 C 04/07/22 20:20 37.5 C 96 H 18 145/76 H 96 04/07/22 19:20 36.9 C 86 16 142/80 H 95 04/07/22 18:50 37.4 C 78 16 135/84 98 O2 Del Method O2 Del Method 04/08/22 18:35 Room Air 04/08/22 18:25 Room Air 04/08/22 18:15 Room Air 04/08/22 17:10 Room Air 04/08/22 14:51 Room Air 04/08/22 12:00 Room Air 04/08/22 08:07 Room Air 04/07/22 20:15 Room Air 04/07/22 20:15 Room Air 04/08/22 03:21 04/07/22 21:20 04/07/22 22:09 Room Air 04/07/22 21:08 04/07/22 20:20 04/07/22 19:20 Room Air 04/07/22 18:50 Room Air Pain Intensity Abdomen: Pain Intensity: 4 Transfer of Care Handoff Completed per policy Notes Mental Status: alert / awake / arousable Patient Amnestic to Procedure: Yes Nausea / Vomiting: adequately controlled Pain: adequately controlled Airway Patency, RR, SpO2: stable & adequate BP & HR: stable & adequate Hydration State: stable & adequate Anesthetic Complications: no major complications apparent and Pt Satisfied with anesthetic care Notes: The patient tolerated MAC sedation for the procedure. He was noted to have multiple foreign objects that were extracted from his stomach including a pill cup and pulse oximetry wires. In recovery he has had more abdominal pain than he did preoperatively. I spoke with Dr. Duval who checked his abdomen postoperatively and felt it to be soft. He was okay with giving the patient some fentanyl in the PACU. He will order a KUB and follow the patient on the floor.
--- NOTE | 2022-04-08 19:05 | XRay Report ---
XR KUB/Abdomen 1 view CLINICAL HISTORY: abdominal pain TECHNIQUE: 1 view of the abdomen was obtained. Comparison: Comparison is made to abdomen radiograph 04/08/2022 FINDINGS: 4 linear densities are seen in the abdomen.. The osseous structures are grossly unremarkable. Multipl e gas-distended loops of small bowel are seen measuring up to 50 mm in diameter. Small stool burden i s seen. IMPRESSION: 1. Again noted are linear densities in the abdomen compatible with ingested foreign bodies. 2. Distended small bowel loops are minimally decreased from prior exam. This may represent improving postoperative ileus. ACT 112: Negative or not required by law. Electronically signed by: Shlomo Rose M.D. 04/08/2022 7:03 PM
[2022-04-08] MEDS: CLINOLIPID 20% IV FAT EMULSION 250 ML IV SCH (20:00)
[2022-04-08] MEDS: haloperidoL 5 MG TAB PO SCH (20:01)
[2022-04-08] MEDS: MIRTAZAPINE SOLTAB 15 MG PO SCH (20:02)
[2022-04-08] MEDS: PARoxetine HCL 20 MG TAB PO SCH (20:02)
--- NOTE | 2022-04-08 20:17 | Hospitalist Progress Note ---
Date of Service April 08, 2022 Assessment & Plan (1) Small bowel obstruction: Plan: On 04/07, developed high-grade SBO secondary to foreign body impaction On 04/07, taken to the OR for repeat ex lap with enterotomy and removal of foreign body from distal jejunum by Dr Paiz appreciate the surgical and Gi assistance on this complicated gentleman will contact the [facility] remote medical coder tomorrow to discuss this gentleman's case we need a plan to prevent this from occurring again and again (2) Foreign body in stomach: Plan: Intentional ingestion of multiple FBs--> frequent admissions and ER visits for such in the last year at this facility Underwent EGD 03/[address] Anderson, [facility]. Normal esophagus. 3 cm piece of plastic tied to a piece of headphones and a washer. This was unable to be extracted through upper esophageal sphincter due to wedging in the esophagus. Thus - s/p exploratory laparotomy and gastrotomy with foreign body removal (2 pieces been tied together with plastic washers) 03/27/2022 - Isaias Paiz MD. Patient self removed NGT overnight of 03/27 into 03/28, replacement deferred by surgery. Also, of note, there are reports that staff could not locate the safety pin used to hold the NGT to his gown. Unfortunately had a retained foreign body after 03/27 gastrotomy procedure. Patient had 2nd EGD on 03/[address] Duval of [facility]. 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 s/p upper GI series on 03/31- no leak from stomach, ?retained foreign bodies x 2. KUB 04/01, again shows button-like foreign bodies and a total of 4 foreign bodies-it seems these are new in the last 2 days compared to previous imaging on 03/28-suspicion that he ingested further foreign body since the last EGD. The pa tient did admit to swallowing paperclips and buttons (metallic snaps from hospital gown) after his surgery. KUB 04/02 now with 10 FBs mostly in large bowel-I do not suspect new FBs ingested in the last day but likely just some of these were bunched together on previous xray or obscured by contrast from previous UGI study Healing well post-op from ex lap His diet was advanced to low fiber on 04/02, but then had 1 episode of vomiting which resulted in metallic foreign body getting stuck in the throat He was transferred to the ICU for observation for airway protection and ENT removed foreign body in the throat under direct laryngoscopy on the morning of 04/03 He then had an episode of emesis with either hemoptysis versus hematemesis on the afternoon of 04/03 and again noted on x-ray to have recurrent metallic foreign body in the throat CT soft tissues neck, chest, and abdomen/pelvis performed-fortunately throat foreign body was gone-suspect he swallowed it, and multiple foreign bodies remai n in the stomach and bowels. No evidence of perforation -on 04/03, Attempts to get patient EGD to remove the residual metallic foreign bodies persisting in the stomach were unsuccessful both with local GI and calling to [facility] (on divert, no beds available), [facility] (GI and triage medical coordinator pesticide use did not feel transfer was necessary and that general GI could perform the endoscopy), and [facility] felt he would be better served at [facility]. Detention Captain contacted by entrance guard and does not approve transfer to [facility] unless it is a life or situation. At this time, he is stable and it is not an emergency to transfer him. 04/04, reached out to [facility] and spoke with GI Dr. Burdick who also did not feel a transfer was necessary and that his EGD would not be considered high risk and could be performed at our facility by a willing GI doctor. Discussed with Dr. Villalobos who also d/w Dr. Shrestha (blown film extrusion operator [facility] ) who remain in agreement to not scope here at this time. Dr. Villalobos now thinks can continue conservative measures, await for FBs to pass on own, serial xrays. On 04/05, abdominal x-ray again shows even more new foreign bodies with 1 large foreign body in the stomach but is radiopaque and coiled around. Patient admits to hiding objects in his nose since prior to admission and snorting them down into his throat and swallowing them. He told the nurse he thinks the current foreign body is the cord from his headphones. Again discussed with GI and do not suspect this will cause a problem and does not need to be removed by EGD. Fortunately, several of the previous metallic wire like foreign bodies that were in the stomach are now passed out of the stomach into the small intestine. GI recommending ethics consult to discuss appropriateness of continued treatment and procedures in this patient who continues to ingest foreign bodies in an effort of self-harm. Ethics consult completed and appreciated-see Dr. Das's note for details. 04/06-feels like still foreign body in nose-cannot visualize on exam; ENT on 04/07 performed nasopharyngoscopy and this was negative for any foreign body On 04/07-with new high-grade SBO -- s/p repeat ex lap with portion of pulse oximeter removed from distal jejunum 04/08 - s/p EGD by Dr Duval - multiple foreign bodies removed from stomach -The [facility] has dictated since 04/01 that the patient now remain in three-point restraints, he has a spit mask in place, and they have asked for soft mitts to be placed on both hands to prevent him from continuing to ingest more foreign bodies. This is crucial. I also have a one-on-one sitter in with the patient as he continued to ingest foreign bodies despite the presence of 2 [facility] guards NPO status remains has had little PO intake over the last 2 weeks thus start PPN labs in am (3) Self-harming behavior: Plan: history of such - numerous occasions with various objects, often by way of ingestion as well as insertion of objects in the urethra. Unclear if this is due to psychiatric condition or malingering No foreign material, detachable material, small pieces/parts should be in arms raised with patient at any time. This includes drawstrings to close/waistbands, EKG stickers, and any loose material. Patient has a recurrent history of quickly ingesting or placing foreign materials into orifices. (4) Foreign body in urethra: Plan: Foreign body in urethra - 03/25 and 03/27 - removal on 2 occasions by [facility] in the OR via cystoscopy- Appreciate urology consultation He then poked a hole in his Hernandez catheter and deflated the balloon and pulled it out himself overnight on 03/31 No evidence of trauma to the penis on exam on 04/01 Received ceftriaxone 1 g IV daily empirically x 7 days - abx now d/c recent urine cx negative developed retention 04/02 -- likely due to multiple FB insertions, inflammation, stricture, etc. Pelvic xray 04/02 no radio-opaque FB Hernandez catheter placed again on 04/02 - maintain for now (5) Schizophrenia: Plan: Unclear if this is a true diagnosis Detention records only have a diagnosis of antisocial personality disorder Remains on lithium BID (level wnl this admission), Paxil, Remeron, and Haldol 10mg HS Earlier in his stay, increased haldol dose to 10mg HS due to hearing voices. complaining again about the voices. I corresponded with Dr Zamarripa from psych - will add AM dose of haldol 5mg. Appreciate Psych input (6) Depression: Plan: meds as above (7) Anxiety: Plan: meds as above (8) Microcytic anemia: Plan: Fe studies wnl could have thalassemia HEAVY METAL SCREEN negative defer on hemoglobin electrophoresis H/H acceptable (9) DVT prophylaxis: Plan: Hold Lovenox due to yesterday's surgery-restart when safe from surgical standpoint (10) Fever: Plan: will repeat a COVID test check u/a and urine cx check blood cultures Plan Disposition- [facility] physician requested that he stay in the hospital until all foreign bodies have passed. Admission and Anticipated Discharge Date Admission Date: March 29, 2022 Subjective patient required ex lap yesterday for SBO pulse oximeter was removed from the distal jejunum overnight just mild abd pain no vomiting scheduled for EGD with GI today for removal of additional foreign bodies from the stomach patient states he is hearing voices again started this am the voices tell him to harm himself 1:1 remains he is in soft mitts for restraints and 3-point handcuffs per [facility] directives Review of Systems Review of Systems: gen - ongoing fevers cv - no chest pain pulm - no cough or dyspnea GI - passing minimal flatus Physical Exam Physical Exam: gen - NAD, lying comfortably in bed, had a mesh covering over his face mouth - mmm neck - no JVD heart - RRR, s1 s2, no murmur lungs - CTA b/l abd - BS+ but decreased, NT, abd wall incision clean, soft, mild distension ext - no edema, pulses 2+ b/l psych - awake, alert, normal conversational speech Results & Data Results & Data ([facility]) Vital Signs (Past 12 Hours) Vital Signs Temp Pulse Pulse Pulse Pulse Resp BP 04/08/22 20:10 37.0 C 117 H 16 157/96 H 04/08/22 19:42 39.5 C H 04/08/22 19:40 39.0 C H 113 H 16 142/80 H 04/08/22 19:10 37 C 114 H 17 146/82 H 04/08/22 18:35 108 H 21 150/91 H 04/08/22 19:00 111 H 19 148/81 H 04/08/22 18:55 109 H 19 144/80 H 04/08/22 18:45 109 H 18 147/83 H 04/08/22 18:25 37.8 C H 108 H 22 147/82 H 04/08/22 18:15 37.2 C 116 H 16 136/106 H 04/08/22 17:10 38.6 C H 101 H 20 138/91 04/08/22 14:51 36.7 C 105 H 20 128/69 04/08/22 12:00 37.3 C 101 H 16 126/69 Pulse Ox O2 Del Method 04/08/22 20:10 96 Room Air 04/08/22 19:42 04/08/22 19:40 97 Room Air 04/08/22 19:10 97 Room Air 04/08/22 18:35 100 Room Air 04/08/22 19:00 92 Room Air 04/08/22 18:55 92 Room Air 04/08/22 18:45 93 Room Air 04/08/22 18:25 100 Room Air 04/08/22 18:15 100 Room Air 04/08/22 17:10 98 Room Air 04/08/22 14:51 97 Room Air 04/08/22 12:00 99 Room Air Laboratory Results Laboratory Results - last 24 hr 04/08/22 04/08/22 06:54 06:54 WBC 14.10 H RBC 5.00 Hgb 12.2 L Hct 37.8 L MCV 75.6 L MCH 24.4 L MCHC 32.3 RDW Std Deviation 35.6 L RDW Coeff of Bassem 13.2 Plt Count 274 MPV 10.3 Immature Gran % (Auto) 0.3 Neut % (Auto) 82.8 Lymph % (Auto) 9.4 [place] % (Auto) 7.2 Eos % (Auto) 0.1 Baso % (Auto) 0.2 Neut # (Auto) 11.67 H Lymph # (Auto) 1.33 [place] # (Auto) 1.02 H Eos # (Auto) 0.01 Baso # (Auto) 0.03 Immature Gran # (Auto) 0.04 H Sodium 137 Potassium 3.6 Chloride 102 Carbon Dioxide 29 Anion Gap 6 BUN 20 Creatinine 1.31 Est Cr Clr Drug Dosing 91.3 Est GFR ( Amer) 88.9 Est GFR (Non-Af Amer) 76.7 BUN/Creatinine Ratio 15.3 Glucose 138 H Calcium 9.1 Phosphorus 3.6 Magnesium 1.8 Total Bilirubin 0.5 AST 13 ALT 10 Alkaline Phosphatase 51 Total Protein 7.3 Albumin 3.9 Globulin 3.4 Albumin/Globulin Ratio 1.1 PG Care Time/CCT Total # of Minutes Spent Total Time Spent with Patient: Total time spent is greater than 50% in coordination of care (as documented) at patient's floor/unit and/or counseling patient: Coding Level of Care Code 64538 Subseq Hosp Care Lvl 3 Diagnoses Small bowel obstruction K56.609 Foreign body in stomach T18.2XXA Self-harming behavior Foreign body in urethra T19.0XXA Schizophrenia F20.0 Schizophrenia type: paranoid schizophrenia Depression F32.A Depression Type: unspecified Anxiety F41.9 Microcytic anemia D50.9 DVT prophylaxis Z29.9 Fever R50.9 (1) Depression Depression Type: unspecified Qualified Code(s): F32.A - Depression, unspecified (2) Schizophrenia Schizophrenia type: paranoid schizophrenia Qualified Code(s): F20.0 - Paranoid schizophrenia
[2022-04-08] MEDS: ONDANSETRON INJ 2 MG/ML 2 ML VIAL IV PRN (20:34)
[2022-04-08] MEDS: KETOROLAC TROMETHAMINE 15 MG/ML VIAL IV PRN (21:48)
[2022-04-08] MEDS ORDERED: STOP CLINOLIPID SCH (22:00)
[2022-04-09] MEDS: CLINOLIPID 20% IV FAT EMULSION 250 ML IV SCH (01:41)
[2022-04-09] MEDS: MoRPHine SULFATE 4 MG/ML 1 ML CARP\\VIAL IV PRN ×5 (02:13→23:26)
[2022-04-09] MEDS: KETOROLAC TROMETHAMINE 15 MG/ML VIAL IV PRN (02:14)
[2022-04-09] MEDS: ACETAMINOPHEN 325 MG TAB PO PRN ×4 (02:14→22:31)
[2022-04-09] MEDS ORDERED: LACTATED RINGER'S 1,000 ML IV SCH (02:45)
[2022-04-09 03:58] LABS: Appearance Urine Clear (Clear); Bacteria Urine Automated Negative (Negative); Blood Urine Negative (Negative); Color Urine Dark Yellow; Epithelial Cell Urine Auto >30 /lpf (0-5); Glucose Urine UA Negative (Negative); Ketones Urine Trace (Negative); Leukocyte Esterase Urine Negative (Negative); Nitrite Urine Negative (Negative); Protein Urine 1+ (Negative); RBC Urine Automated 0-4 /hpf (0-4); Urobilinogen Urine Negative (Negative); pH Urine 6.5 (4.5-7.5)
[2022-04-09 04:07] LABS: Bilirubin Urine 1+ (Negative)
[2022-04-09 04:35] LABS: Cast Urine Automated 0 /lpf (0-5); Mucus Urine Present (None Prsent)
[2022-04-09 04:45] LABS: Basophils # (auto) 0.01 K/uL (0-0.2); Basophils % (auto) 0.1 %; Eosinophils # (auto) 0.03 K/uL (0-0.50); Eosinophils % (auto) 0.3 %; Hematocrit (blood only) 32.5 % (40.1-51.0); Hemoglobin 10.4 g/dl (14.0-18.0); Immature Granulocytes # (auto) 0.03 K/uL (0.00-0.02); Immature Granulocytes % (auto) 0.3 %; Lymphocytes # (auto) 0.66 K/uL (1.2-3.4); Lymphocytes % (auto) 6.1 %; Mean Corpuscular Hemoglobin 24.6 pg (25.0-34.0); Mean Corpuscular Volume 76.8 fL (80.0-100.0); Mean Platelet Volume 9.8 fL (9.4-12.4); Monocytes % (auto) 4.6 %; Neutrophils # (auto) 9.53 K/uL (1.4-6.5); Neutrophils % (auto) 88.6 %; Platelet Count 194 K/uL (130-400); RDW Coefficient of Variation 13.1 % (11.5-14.5); RDW Standard Deviation 36.5 fL (36.4-46.3); Red Blood Count 4.23 M/uL (4.63-6.08); White Blood Count 10.76 K/ul (4.8-10.8)
[2022-04-09 05:05] LABS: BUN Creatinine Ratio 11.9 (10-20); Calcium 8.8 mg/dl (8.5-10.1); Creatinine Clr Calc Pharmacy 101.4 ml/min; Est GFR (African American) 100.9 ml/min; Est GFR (Non-African American) 87.1 ml/min; Magnesium 1.8 mg/dl (1.7-2.4); Phosphorus 3.2 mg/dl (2.5-4.9); Potassium 3.4 mmol/L (3.5-5.1)
[2022-04-09] MEDS: LITHIUM CARBONATE 300 MG TAB PO SCH ×2 (08:13→21:05)
[2022-04-09] MEDS ORDERED: haloperidoL 5 MG TAB PO SCH (09:00)
[2022-04-09] MEDS: POTASSIUM CHLORIDE / WTR 10 MEQ/100 ML PLCT IV SCH ×2 (09:05→10:01)
[2022-04-09] MEDS: PANTOprazole 40 MG in SYRINGE 0 ML IV SCH (11:21)
--- NOTE | 2022-04-09 13:48 | XRay Report ---
XR chest 1V portable HISTORY: fevers; eval pneumonia COMPARISON: Chest 04/05/2022. FINDINGS: No pneumothorax. No pleural effusions. No focal lung consolidations to suggest a pneumonia. No evidence for pulmonary edema. The heart is normal in size. No radiopaque foreign bodies within th e chest. Trace right subdiaphragmatic pneumoperitoneum. Partially visualized dilated loops of small b owel noted within the upper abdomen. IMPRESSION: 1. No focal lung consolidations to suggest a pneumonia. 2. Trace pneumoperitoneum. This is indeterminate but likely due to the recent postoperative change. 3. Partially visualized dilated loop of small bowel again noted within the upper abdomen. ACT 112: Negative or not required by law. Electronically signed by: Richard Aburto M.D. 04/09/2022 1:47 PM
[2022-04-09] MEDS ORDERED: KETOROLAC 30 MG/ML VIAL IV ONE (14:57)
[2022-04-09] MEDS: AMPICILLIN/SULBACTAM SOD 3,000 MG in 0.9 % SODIUM CHLORIDE 100 ML IV SCH ×2 (15:27→21:04)
[2022-04-09] MEDS ORDERED: AMINO ACIDS 4.25% IV SCH (16:00)
[2022-04-09] MEDS ORDERED: PERIPHERAL TPN IV SCH (16:00)
[2022-04-09] MEDS ORDERED: CLINOLIPID 20% IV FAT EMULSION 250 ML IV SCH (16:00)
[2022-04-09] MEDS ORDERED: D5W IV SCH (16:00)
--- NOTE | 2022-04-09 16:51 | Surgery Progress Note ---
Date of Service April 09, 2022 Assessment & Plan (1) Small bowel obstruction: (2) Foreign body in stomach: Plan POD 13 and 2 s/p ex laparotomies for foreign objects in stomach and small bowel respectively. started passing flatus; may start clears SCDs and Lovenox for DVT prophylaxis Aggressive pulmonary toilet strict isolation from all things able to be swallowed Admission and Anticipated Discharge Date Admission Date: March 29, 2022 Subjective doing well; no nausea or vomiting; started passing flatus this afternoon. minimal abdominal pain Physical Exam Physical Exam: Abdomen soft, minimal tenderness, minimal distention; incision healing well with dermabond; no signs of infection Results & Data ([facility]) Vital Signs (Past 12 Hours) Vital Signs Temp Pulse Pulse Pulse Resp BP Pulse Ox 04/09/22 16:28 37.6 C H 104 H 16 121/62 96 04/09/22 14:55 39.4 C H 112 H 18 148/80 H 98 04/09/22 13:25 38.0 C H 04/09/22 11:00 37.1 C 102 H 16 121/74 97 04/09/22 08:19 102 H 04/09/22 08:10 36.8 C 112/67 04/09/22 05:47 38.9 C H 108 H 14 121/68 95 O2 Del Method 04/09/22 16:28 Room Air 04/09/22 14:55 Room Air 04/09/22 13:25 04/09/22 11:00 Room Air 04/09/22 08:19 04/09/22 08:10 04/09/22 05:47 Room Air
[2022-04-09] MEDS: MIRTAZAPINE SOLTAB 15 MG PO SCH (21:05)
[2022-04-09] MEDS: PARoxetine HCL 20 MG TAB PO SCH (21:05)
[2022-04-09] MEDS: haloperidoL 5 MG TAB PO SCH (21:05)
[2022-04-09] MEDS: STOP CLINOLIPID SCH (21:08)
--- NOTE | 2022-04-09 22:24 | Hospitalist Progress Note ---
Date of Service April 09, 2022 Assessment & Plan (1) Fever: Plan: Ongoing high fevers. Blood/urine cx's thus far negative. Repeat COVID PCR negative. CXR without pneumonia. Etiology? I corresponded with gen surg - they do not feel that his fevers are from intra-abdominal source. Patient with chronic use of haldol and dose just recently increased to 10mg at HS about 10 days ago. Additional 5mg dose added in the am. Check a CPK - r/o NMS. While awaiting cultures - start unasyn IV empirically. Consider biofire respiratory panel. Check LFTs and procalcitonin in am. (2) Small bowel obstruction: Plan: On 04/07, developed high-grade SBO secondary to foreign body impaction POD #2 -- s/p repeat ex lap with enterotomy and removal of foreign body from distal jejunum by Dr Paiz appreciate the surgical and GI assistance on this complicated gentleman will contact the correction medical billing specialist to discuss this gentleman's case we need a plan to prevent this from occurring again and again gen surg has seen - ok for clears (cautiously) today diet consumption needs heavy supervision to prevent inadvertent foreign body ingestion see #1 above (3) Foreign body in stomach: Plan: Intentional ingestion of multiple FBs--> frequent admissions and ER visits for such in the last year at this facility Underwent EGD 03/[address] Anderson, [facility]. Normal esophagus. 3 cm piece of plastic tied to a piece of headphones and a washer. This was unable to be extracted through upper esophageal sphincter due to wedging in the esophagus. Thus - s/p exploratory laparotomy and gastrotomy with foreign body removal (2 pieces been tied together with plastic washers) 03/27/2022 - Isaias Paiz MD. Patient self removed NGT overnight of 03/27 into 03/28, replacement deferred by surgery. Also, of note, there are reports that staff could not locate the safety pin used to hold the NGT to his gown. Unfortunately had a retained foreign body after 03/27 gastrotomy procedure. Patient had 2nd EGD on 03/[address] Duval of [facility]. 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 s/p upper GI series on 03/31- no leak from stomach, ?retained foreign bodies x 2. KUB 04/01, again shows button-like foreign bodies and a total of 4 foreign bodies-it seems these are new in the last 2 days compared to previous imaging on 03/28-suspicion that he ingested further foreign body since the last EGD. The patient did admit to swallowing paperclips and buttons (metallic snaps from hospital gown) after his surgery. KUB 04/02 now with 10 FBs mostly in large bowel-I do not suspect new FBs ingested in the last day but likely just some of these were bunched together on previous xray or obscured by contrast from previous UGI study Healing well post-op from ex lap His diet was advanced to low fiber on 04/02, but then had 1 episode of vomiting which resulted in metallic foreign body getting stuck in the throat He was transferred to the ICU for observation for airway protection and ENT removed foreign body in the throat under direct laryngoscopy on the morning of 04/03 He then had an episode of emesis with either hemoptysis versus hematemesis on the afternoon of 04/03 and again noted on x-ray to have recurrent metallic foreign body in the throat CT soft tissues neck, chest, and abdomen/pelvis performed-fortunately throat foreign body was gone-suspect he swallowed it, and multiple foreign bodies remain in the stomach and bowels. No evidence of perforation -on 04/03, Attempts to get patient EGD to remove the residual metallic foreign bodies persisting in the stomach were unsuccessful both with local GI and calling to [facility] (on divert, no beds available), [facility] (GI and triage biomedical engineering technologist did not feel transfer was necessary and that general GI could perform the endoscopy), and [facility] felt he would be better served at [facility] Captain contacted by warehouse guard and does not approve transfer to [facility] unless it is a life or situation. At this time, he is stable and it is not an emergency to transfer him. 04/04, reached out to [facility] and spoke with GI Dr. Burdick who also did not feel a transfer was necessary and that his EGD would not be considered high risk and could be performed at our facility by a willing GI doctor. Discussed with Dr. iVllalobos who also d/w Dr. Shrestha (electronics test engineer [facility] who remain in agreement to not scope here at this time. Dr. Villalobos now thinks can continue conservative measures, await for FBs to pass on own, serial xrays. On 04/05, abdominal x-ray again shows even more new foreign bodies with 1 large foreign body in the stomach but is radiopaque and coiled around. Patient admits to hiding objects in his nose since prior to admission and snorting them down into his throat and swallowing them. He told the nurse he thinks the current foreign body is the cord from his headphones. Again discussed with GI and do not suspect this will cause a problem and does not need to be removed by EGD. Fortunately, several of the previous metallic wire like foreign bodies that were in the stomach are now passed out of the stomach into the small intestine. GI recommending ethics consult to discuss appropriateness of continued treatment and procedures in this patient who continues to ingest foreign bodies in an effort of self-harm. Ethics consult completed and appreciated-see Dr. Das's note for details. 04/06-feels like still foreign body in nose-cannot visualize on exam; ENT on 04/07 performed nasopharyngoscopy and this was negative for any foreign body On 04/07-with new high-grade SBO -- s/p repeat ex lap with portion of pulse oximeter removed from distal jejunum 04/08 - s/p EGD by Dr Duval - multiple foreign bodies removed from stomach The correction has dictated since 04/01 that the patient now remain in three-point restraints, he has a spit mask in place, and they have asked for soft mitts to be placed on both hands to prevent him from continuing to ingest more foreign bodies. This is crucial. I also have a one-on-one sitter in with the patient as he continued to ingest foreign bodies despite the presence of 2 correction guards starting clears today continue PPN (4) Self-harming behavior: Plan: history of such - numerous occasions with various objects, often by way of ingestion as well as insertion of objects in the urethra. Unclear if this is due to psychiatric condition or malingering No foreign material, detachable material, small pieces/parts should be in arms raised with patient at any time. This includes drawstrings to close/waistbands, EKG stickers, and any loose material. Patient has a recurrent history of quickly ingesting or placing foreign materials into orifices. (5) Foreign body in urethra: Plan: Foreign body in urethra - 03/25 and 03/27 - removal on 2 occasions by [facility] in the OR via cystoscopy- Appreciate urology consultation He then poked a hole in his Ruiz catheter and deflated the balloon and pulled it out himself overnight on 03/31 No evidence of trauma to the penis on exam on 04/01 Received ceftriaxone 1 g IV daily empirically x 7 days - abx now d/c recent urine cx negative developed retention 04/02 -- likely due to multiple FB insertions, inflammation, stricture, etc. Pelvic xray 04/02 no radio-opaque FB Ruiz catheter placed again on 04/02 - maintain for now Awaiting urine culture (6) Schizophrenia: Plan: Unclear if this is a true diagnosis [facility] records only have a diagnosis of antisocial personality disorder Remains on lithium BID (level wnl this admission), Paxil, Remeron, and Haldol 10mg HS Earlier in his stay, increased haldol dose to 10mg HS due to hearing voices. complaining again about the voices. I corresponded with Dr Zamarripa from psych - added AM dose of haldol 5mg. Appreciate Psych input see #1 above checking a CPK (7) Depression: Plan: meds as above (8) Anxiety: Plan: meds as above (9) Microcytic anemia: Plan: Fe studies wnl could have thalassemia HEAVY METAL SCREEN negative defer on hemoglobin electrophoresis H/H acceptable (10) DVT prophylaxis: Plan: Lovenox on hold due to recent surgery-restart when safe from surgical standpoint Admission and Anticipated Discharge Date Admission Date: March 29, 2022 Subjective patient resting during the visit he asks when he can start eating again during AM rounds he denies passing flatus yet feels bloated, but no nausea or emesis we discussed his fevers -- only has mild frontal headache; denies sore throat, runny nose, congestion, cough, dyspnea, body aches, or new rash Review of Systems Review of Systems: gen - ongoing fevers, cold chills mouth - MMM heart - no chest pain pulm - no dyspnea, no cough, no wheezing GI - bloating but no pain; not passing flatus yet - ruiz remains in place Physical Exam Physical Exam: gen - NAD, lying comfortably in bed, continues with mesh netting/covering over his face; looks sick but nontoxic mouth - mmm neck - no JVD heart - RR, tachy, s1 s2, no murmur lungs - CTA b/l abd - BS+ but still decreased, NT, abd wall incision clean, soft, mild-moderate distension ext - no edema, pulses 2+ b/l psych - awake, alert, normal conversational speech skin - tinea versicolor (chronic) but no new rash Results & Data Results & Data ([facility]) Vital Signs (Past 12 Hours) Vital Signs Temp Pulse Pulse Resp BP Pulse Ox O2 Del Method 04/09/22 20:53 39.2 C H 113 H 20 145/91 H 97 Room Air 04/09/22 19:30 Room Air 04/09/22 18:45 37.4 C 97 H 16 123/73 96 Room Air 04/09/22 16:28 37.6 C H 104 H 16 121/62 96 Room Air 04/09/22 14:55 39.4 C H 112 H 18 148/80 H 98 Room Air 04/09/22 13:25 38.0 C H 04/09/22 11:00 37.1 C 102 H 16 121/74 97 Room Air Laboratory Results Laboratory Results - last 24 hr 04/08/22 04/09/22 04/09/22 23:55 01:53 04:30 WBC RBC Hgb Hct MCV MCH MCHC RDW Std Deviation RDW Coeff of Bassem Plt Count MPV Immature Gran % (Auto) Neut % (Auto) Lymph % (Auto) Wilcox % (Auto) Eos % (Auto) Baso % (Auto) Neut # (Auto) Lymph # (Auto) Wilcox # (Auto) Eos # (Auto) Baso # (Auto) Immature Gran # (Auto) Sodium 136 Potassium 3.4 L Chloride 102 Carbon Dioxide 29 Anion Gap 5 BUN 14 Creatinine 1.18 Est Cr Clr Drug Dosing 101.4 Est GFR ( Amer) 100.9 Est GFR (Non-Af Amer) 87.1 BUN/Creatinine Ratio 11.9 Glucose 119 H POC Glucose 132 H Calcium 8.8 Phosphorus 3.2 Magnesium 1.8 Urine Color Dark Yellow Urine Appearance Clear Urine pH 6.5 Ur Specific [place] 1.040 H Urine Protein 1+ H Urine Glucose (UA) Negative Urine Ketones Trace H Urine Blood Negative Urine Nitrite Negative Urine Bilirubin 1+ H Urine Urobilinogen Negative Ur Leukocyte Esterase Negative Urine WBC (Auto) 1-5 Urine RBC (Auto) 0-4 U Hyaline Cast (Auto) 0 U Epithel Cells (Auto) >30 H Urine Bacteria (Auto) Negative Ur Renal Epithelial Cell Not Reportable Urine Mucus Present A 04/09/22 04/09/22 04/09/22 04:30 05:45 11:52 WBC 10.76 RBC 4.23 L Hgb 10.4 L Hct 32.5 L MCV 76.8 L MCH 24.6 L MCHC 32.0 RDW Std Deviation 36.5 RDW Coeff of Bassem 13.1 Plt Count 194 MPV 9.8 Immature Gran % (Auto) 0.3 Neut % (Auto) 88.6 Lymph % (Auto) 6.1 Wilcox % (Auto) 4.6 Eos % (Auto) 0.3 Baso % (Auto) 0.1 Neut # (Auto) 9.53 H Lymph # (Auto) 0.66 L Wilcox # (Auto) 0.50 Eos # (Auto) 0.03 Baso # (Auto) 0.01 Immature Gran # (Auto) 0.03 H Sodium Potassium Chloride Carbon Dioxide Anion Gap BUN Creatinine Est Cr Clr Drug Dosing Est GFR ( Amer) Est GFR (Non-Af Amer) BUN/Creatinine Ratio Glucose POC Glucose 104 H 86 Calcium Phosphorus Magnesium Urine Color Urine Appearance Urine pH Ur Specific [place] Urine Protein Urine Glucose (UA) Urine Ketones Urine Blood Urine Nitrite Urine Bilirubin Urine Urobilinogen Ur Leukocyte Esterase Urine WBC (Auto) Urine RBC (Auto) U Hyaline Cast (Auto) U Epithel Cells (Auto) Urine Bacteria (Auto) Ur Renal Epithelial Cell Urine Mucus 04/09/22 18:07 WBC RBC Hgb Hct MCV MCH MCHC RDW Std Deviation RDW Coeff of Bassem Plt Count MPV Immature Gran % (Auto) Neut % (Auto) Lymph % (Auto) Wilcox % (Auto) Eos % (Auto) Baso % (Auto) Neut # (Auto) Lymph # (Auto) Wilcox # (Auto) Eos # (Auto) Baso # (Auto) Immature Gran # (Auto) Sodium Potassium Chloride Carbon Dioxide Anion Gap BUN Creatinine Est Cr Clr Drug Dosing Est GFR ( Amer) Est GFR (Non-Af Amer) BUN/Creatinine Ratio Glucose POC Glucose 103 H Calcium Phosphorus Magnesium Urine Color Urine Appearance Urine pH Ur Specific [place] Urine Protein Urine Glucose (UA) Urine Ketones Urine Blood Urine Nitrite Urine Bilirubin Urine Urobilinogen Ur Leukocyte Esterase Urine WBC (Auto) Urine RBC (Auto) U Hyaline Cast (Auto) U Epithel Cells (Auto) Urine Bacteria (Auto) Ur Renal Epithelial Cell Urine Mucus PG Care Time/CCT Total # of Minutes Spent Total Time Spent with Patient: Total time spent is greater than 50% in coordination of care (as documented) at patient's floor/unit and/or counseling patient: Coding Level of Care Code 36098 Subseq Hosp Care Lvl 2 Diagnoses Fever R50.9 Small bowel obstruction K56.609 Foreign body in stomach T18.2XXA Self-harming behavior Foreign body in urethra T19.0XXA Schizophrenia F20.0 Schizophrenia type: paranoid schizophrenia Depression F32.A Depression Type: unspecified Anxiety F41.9 Microcytic anemia D50.9 DVT prophylaxis Z29.9 (1) Depression Depression Type: unspecified Qualified Code(s): F32.A - Depression, unspecified (2) Schizophrenia Schizophrenia type: paranoid schizophrenia Qualified Code(s): F20.0 - Paranoid schizophrenia
[2022-04-10] MEDS: AMPICILLIN/SULBACTAM SOD 3,000 MG in 0.9 % SODIUM CHLORIDE 100 ML IV SCH ×4 (03:51→20:47)
[2022-04-10] MEDS: MoRPHine SULFATE 4 MG/ML 1 ML CARP\\VIAL IV PRN ×5 (03:51→22:00)
[2022-04-10 08:52] LABS: Hematocrit (blood only) 33.4 % (40.1-51.0); Hemoglobin 10.7 g/dl (14.0-18.0); Mean Corpuscular Hemoglobin 24.3 pg (25.0-34.0); Mean Corpuscular Volume 75.7 fL (80.0-100.0); Mean Platelet Volume 10.9 fL (9.4-12.4); Platelet Count 204 K/uL (130-400); RDW Standard Deviation 35.4 fL (36.4-46.3); Red Blood Count 4.41 M/uL (4.63-6.08); White Blood Count 9.66 K/ul (4.8-10.8)
[2022-04-10] MEDS: LITHIUM CARBONATE 300 MG TAB PO SCH ×2 (09:12→20:44)
[2022-04-10 09:14] LABS: Albumin Level 3.3 gm/dl (3.4-5.0); BUN Creatinine Ratio 10.2 (10-20); Bilirubin Direct 0.2 mg/dl (0-0.2); Bilirubin,Total 0.4 mg/dl (0.2-1.0); Calcium 8.8 mg/dl (8.5-10.1); Creatinine Clr Calc Pharmacy 101.4 ml/min; Est GFR (African American) 100.9 ml/min; Est GFR (Non-African American) 87.1 ml/min; Magnesium 1.9 mg/dl (1.7-2.4); Phosphorus 2.8 mg/dl (2.5-4.9); Potassium 3.4 mmol/L (3.5-5.1); Total Protein 6.8 gm/dl (6.0-8.3)
--- NOTE | 2022-04-10 09:37 | Surgery Progress Note ---
Date of Service April 10, 2022 Assessment & Plan (1) Small bowel obstruction: (2) Foreign body in stomach: Plan POD 14 and 3 s/p ex laparotomies for foreign objects in stomach and small bowel respectively. He is continuing to pass flatus and has a fairly benign abdomen. White count is normal. Continue clears SCDs and Lovenox for DVT prophylaxis Aggressive pulmonary toilet strict isolation from all things able to be swallowed Discussed the case with Dr. Vogt the hospitalist. I do not believe the abdomen is the source of his fevers. There will be no utility to a CT scan at this time being so close to his last surgery. We will continue to monitor with serial exams. Admission and Anticipated Discharge Date Admission Date: March 29, 2022 Subjective Had fevers to 40.1 overnight. He continues to pass flatus. His abdomen continues to improve and pain. He only has mild pain today. He denies nausea or vomiting. He is tolerating clear liquids. Physical Exam Physical Exam: Abdomen soft, minimal tenderness, minimal distention; incision healing well with dermabond; no signs of infection Results & Data ([facility]) Vital Signs (Past 12 Hours) Vital Signs Temp Pulse Resp BP Pulse Ox O2 Del Method 04/10/22 07:49 37.8 C H 105 H 17 139/77 97 Room Air 04/10/22 03:49 38.9 C H 04/10/22 00:59 39.7 C H 04/09/22 22:25 40.2 C H Laboratory Results 04/10/22 04/10/22 04/10/22 Range/Units 08:01 08:01 08:01 WBC 9.66 (4.8-10.8) K/ul RBC 4.41 L (4.63-6.08) M/uL Hgb 10.7 L (14.0-18.0) g/dl Hct 33.4 L (40.1-51.0) % MCV 75.7 L (80.0-100.0) fL MCH 24.3 L (25.0-34.0) pg MCHC 32.0 (32.0-36.0) g/dL RDW Std Deviation 35.4 L (36.4-46.3) fL RDW Coeff of Bassem 13.0 (11.5-14.5) % Plt Count 204 (130-400) K/uL MPV 10.9 (9.4-12.4) fL Sodium 139 (136-145) mmol/L Potassium 3.4 L (3.5-5.1) mmol/L Chloride 104 (98-107) mmol/L Carbon Dioxide 30 (21-32) mmol/L Anion Gap 5 (3-11) BUN 12 (6-23) mg/dl Creatinine 1.18 (0.6-1.4) mg/dl Est Cr Clr Drug Dosing 101.4 ml/min Est GFR ( Amer) 100.9 ml/min Est GFR (Non-Af Amer) 87.1 ml/min BUN/Creatinine Ratio 10.2 (10-20) Glucose 111 H (70-99(Fasting)) mg/dl POC Glucose (70-99) mg/dl Calcium 8.8 (8.5-10.1) mg/dl Phosphorus 2.8 (2.5-4.9) mg/dl Magnesium 1.9 (1.7-2.4) mg/dl Total Bilirubin 0.4 (0.2-1.0) mg/dl Direct Bilirubin 0.2 (0-0.2) mg/dl AST 16 (13-39) U/L ALT 10 (7-52) U/L Alkaline Phosphatase 59 (34-104) U/L Total Creatine Kinase (30-223) U/L Total Protein 6.8 (6.0-8.3) gm/dl Albumin 3.3 L (3.4-5.0) gm/dl Procalcitonin 0.27 (0-0.5) ng/ml 04/10/22 04/09/22 04/09/22 Range/Units 05:47 23:28 22:49 WBC (4.8-10.8) K/ul RBC (4.63-6.08) M/uL Hgb (14.0-18.0) g/dl Hct (40.1-51.0) % MCV (80.0-100.0) fL MCH (25.0-34.0) pg MCHC (32.0-36.0) g/dL RDW Std Deviation (36.4-46.3) fL RDW Coeff of Bassem (11.5-14.5) % Plt Count (130-400) K/uL MPV (9.4-12.4) fL Sodium (136-145) mmol/L Potassium (3.5-5.1) mmol/L Chloride (98-107) mmol/L Carbon Dioxide (21-32) mmol/L Anion Gap (3-11) BUN (6-23) mg/dl Creatinine (0.6-1.4) mg/dl Est Cr Clr Drug Dosing ml/min Est GFR ( Amer) ml/min Est GFR (Non-Af Amer) ml/min BUN/Creatinine Ratio (10-20) Glucose (70-99(Fasting)) mg/dl POC Glucose 90 94 (70-99) mg/dl Calcium (8.5-10.1) mg/dl Phosphorus (2.5-4.9) mg/dl Magnesium (1.7-2.4) mg/dl Total Bilirubin (0.2-1.0) mg/dl Direct Bilirubin (0-0.2) mg/dl AST (13-39) U/L ALT (7-52) U/L Alkaline Phosphatase (34-104) U/L Total Creatine Kinase 396 H (30-223) U/L Total Protein (6.0-8.3) gm/dl Albumin (3.4-5.0) gm/dl Procalcitonin (0-0.5) ng/ml 04/09/22 04/09/22 Range/Units 18:07 11:52 WBC (4.8-10.8) K/ul RBC (4.63-6.08) M/uL Hgb (14.0-18.0) g/dl Hct (40.1-51.0) % MCV (80.0-100.0) fL MCH (25.0-34.0) pg MCHC (32.0-36.0) g/dL RDW Std Deviation (36.4-46.3) fL RDW Coeff of Bassem (11.5-14.5) % Plt Count (130-400) K/uL MPV (9.4-12.4) fL Sodium (136-145) mmol/L Potassium (3.5-5.1) mmol/L Chloride (98-107) mmol/L Carbon Dioxide (21-32) mmol/L Anion Gap (3-11) BUN (6-23) mg/dl Creatinine (0.6-1.4) mg/dl Est Cr Clr Drug Dosing ml/min Est GFR ( Amer) ml/min Est GFR (Non-Af Amer) ml/min BUN/Creatinine Ratio (10-20) Glucose (70-99(Fasting)) mg/dl POC Glucose 103 H 86 (70-99) mg/dl Calcium (8.5-10.1) mg/dl Phosphorus (2.5-4.9) mg/dl Magnesium (1.7-2.4) mg/dl Total Bilirubin (0.2-1.0) mg/dl Direct Bilirubin (0-0.2) mg/dl AST (13-39) U/L ALT (7-52) U/L Alkaline Phosphatase (34-104) U/L Total Creatine Kinase (30-223) U/L Total Protein (6.0-8.3) gm/dl Albumin (3.4-5.0) gm/dl Procalcitonin (0-0.5) ng/ml
[2022-04-10] MEDS ORDERED: POTASSIUM CHLORIDE CRTAB 20 MEQ TABCR PO STA (10:05)
[2022-04-10] MEDS: PANTOprazole 40 MG in SYRINGE 0 ML IV SCH (10:24)
--- NOTE | 2022-04-10 10:44 | Pharmacy Report ---
PHA: Parenteral Nutrition Con - Date of Service April 10, 2022 - Scope Pharmacy was consulted on 04/08/22 to manage parenteral nutrition orders for this patient. - Subjective The patient is currently on day # 3 of peripheral parenteral nutrition for prolonged NPO status. - Objective Height: 5 ft 10 in Weight: 81.8 kg Diet: Clear Liquid Intake & Output (24hrs):: Intake & Output 04/08/22 04/09/22 04/10/22 04/11/22 06:59 06:59 06:59 06:59 Intake Total 1500 / 1500 2377.083 / 2377.083 2807.033 / 2807.033 108 / 108 Output Total 685 / 685 875 / 875 2170 / 2170 Balance 815 / 815 1502.083 / 1502.083 637.033 / 637.033 108 / 108 Weight 81 kg 81 kg 81.8 kg Laboratory Data (Last 24 Hr):: 04/10/22 08:01 Sodium 139 Potassium 3.4 L Chloride 104 Carbon Dioxide 30 BUN 12 Creatinine 1.18 Glucose 111 H Calcium 8.8 Phosphorus 2.8 Magnesium 1.9 Total Bilirubin 0.4 AST 16 ALT 10 Alkaline Phosphatase 59 Albumin 3.3 L Nutrition Assessment:: Please refer to the Notes section of the EMR for the most recent finish repair worker note. - Assessment MM is a 22 yo on day 3 of PPN * Patient tolerating clear liquid diet. Plan to continue today per surgery notes. * Electrolytes remain relatively stable. Hypokalemia (k=3.4) noted on AM labs. Provider replaced with KCL 40 meq PO. Will also increase potassium in PPN for today. Phos level is trending downward. Will increase phos in PPN as well. * Titrate macronutrients to goal 85 g AA, 100 g dextrose, and 50 g lipids. - Plan For day 3 of PN administration, the following will be ordered: Macronutrients Amino acids 85 grams/day Dextrose 100 grams/day Lipids 50 grams/day Micronutrients Sodium chloride 50 mEq Sodium acetate 70 mEq Potassium phosphate 30 mMol Potassium chloride 50 mEq Magnesium sulfate 8.12 mEq Calcium gluconate 4.65 mEq Multivitamins 10 mL Trace Elements 1 mL Additional additives: folic acid 1 mg, thiamine 100 mg Total volume 2114.2 mL to be infused over 24 hrs will provide 1180 kcal/day Final osmolarity 841.42 mOsm/L (maximum for PPN is 900 mOsm/L) Labs, as indicated, will be ordered per protocol Pharmacy will continue to follow and adjust parenteral nutrition orders on a daily basis. Thank you for allowing us to participate in the care of this patient.
[2022-04-10 11:26] LABS: Adenovirus PCR Not Detected (NotDetected); Bordetella parapertussis PCR Not Detected (NotDetected); Bordetella pertussis PCR Not Detected (NotDetected); Chlamydia pneumoniae PCR Not Detected (NotDetected); Coronavirus 229E PCR Not Detected (NotDetected); Coronavirus CoV-2 (COVID19)PCR Not Detected (NotDetected); Coronavirus HKU1 PCR Not Detected (NotDetected); Coronavirus NL63 PCR Not Detected (NotDetected); Coronavirus OC43PCR Not Detected (NotDetected); Human Metapneumovirus PCR Not Detected (NotDetected); Influenza A PCR Not Detected (NotDetected); Influenza B PCR Not Detected (NotDetected); Mycoplasma pneumoniae PCR Not Detected (NotDetected); Parainfluenza Virus 1 PCR Not Detected (NotDetected); Parainfluenza Virus 2 PCR Not Detected (NotDetected); Parainfluenza Virus 3 PCR Not Detected (NotDetected); Parainfluenza Virus 4 PCR Not Detected (NotDetected); Respiratory Syncytial VirusPCR Not Detected (NotDetected); Rhinovirus/Enterovirus PCR Not Detected (NotDetected)
[2022-04-10] MEDS: ACETAMINOPHEN 325 MG TAB PO PRN ×2 (11:33→20:47)
--- NOTE | 2022-04-10 12:58 | Psychiatric Progress Note ---
Date of Service April 10, 2022 Impression / Recommendations Impression 22 yo inmate at [facility] with repeated self-harm attempts via ingestion and insertion of foreign bodies into urethra. Presentation consistent with antisocial PD as well as likely malingering with secondary gain of hospital admission as well as possible cluster B/self-harm component as means of treating distress from incarceration/limited coping skills/feeling unsupported by his family. 04/10/22--other than ingestions has been psychiatrically stable. (1) Self-harming behavior: (2) Malingering: (3) Auditory hallucination: (4) Foreign body ingestion: (5) Depression: Plan reviewed with Dr. Loya that mild CPK elevations can be seen with restraints (cuffed) and typically with NMS would have rigidity, higher CPK, confusion but certainly no immediate need to increase Haldol and should be find to hold with retrial when afebrile. He is mildly tachy, given on Paxil, lithium, and Remeron can't exclude mild serotonin syndrome given multiple procedures. OK to hold Paxil and Remeron. Will follow. Interval History Identifying Information 22 yo male, long hx of foreign body ingestion while incarcerated. Initial consult by Dr. Olivarez on 04/04/22. Chief Complaint difficult to interview given spit card, mitts, cuffed, 2 guards plus 1-on-1 Review of Systems Notes unable to complete. Subjective Subjective Patient states he is fine, denies muscle soreness/stiffness, denies rendon. Asked appropriated questions re: Haldol and reviewed that his psychiatric medications are being held due to fevers. Procedures Performed Operation Date: 03/25/22 00:15 Actual Procedures p Cystoscopy, Removal of Foreign Body - José Luis Burton DO Operation Date: 03/25/22 10:35 <No data on this case meets the specified criteria> Operation Date: 03/26/22 09:40 Actual Procedures p Esophagogastroduodenoscopy - Henri Anderson Jr, MD Operation Date: 03/27/22 14:10 Actual Procedures p Exploratory Laparotomy, Gastrotomy Removal of Foreign Body(Not Applicable) - José Luis Paiz MD s Cystoscopy, removal of foreign body(Not Applicable) - Anton Randall MD Operation Date: 03/28/22 10:05 Actual Procedures p Esophagogastroduodenoscopy with foreign body removal - Aki Duval MD Operation Date: 04/03/22 07:00 Actual Procedures p Esophagoscopy, laryngoscopy with foreign body removal(Not Applicable) - Tonja Orantes MD Operation Date: 04/03/22 09:50 <No data on this case meets the specified criteria> Operation Date: 04/07/22 08:50 Actual Procedures p Exploratory Laparotomy, Small Bowel Enterotomy with Removal of Foreign Body(Not Applicable) - José Luis Paiz MD Operation Date: 04/08/22 08:00 Actual Procedures p EGD Foreign Body Removal(Not Applicable) - Aki Duval MD Physical Exam Psychiatric Orientation: alert Eye Contact: + poor eye contact Speech: normal rate/rhythm/volume of speech Affect: + blunted affect Mood: + depressed mood Thought Process: + concrete thought process Thought Content: no delusions Suicidal Thoughts: denies suicidal thoughts Homicidal Thoughts: denies homicidal thoughts Hallucinations: no auditory hallucinations and no visual hallucinations Vital Signs (Past 24 Hours) Last Vital Signs Temp 39.0 C H 04/10/22 11:26 Pulse 109 H 04/10/22 11:26 Resp 17 04/10/22 11:26 BP 127/78 04/10/22 11:26 Pulse Ox 96 04/10/22 11:26 O2 Del Method 04/10/22 11:26 O2 Flow Rate 5 04/07/22 17:45 Results & Data ([facility]) Laboratory Results Laboratory Results - last 24 hr 04/09/22 04/09/22 04/09/22 18:07 22:49 23:28 WBC RBC Hgb Hct MCV MCH MCHC RDW Std Deviation RDW Coeff of Bassem Plt Count MPV Sodium Potassium Chloride Carbon Dioxide Anion Gap BUN Creatinine Est Cr Clr Drug Dosing Est GFR ( Amer) Est GFR (Non-Af Amer) BUN/Creatinine Ratio Glucose POC Glucose 103 H 94 Calcium Phosphorus Magnesium Total Bilirubin Direct Bilirubin AST ALT Alkaline Phosphatase Total Creatine Kinase 396 H Total Protein Albumin Procalcitonin Adenovirus (PCR) B. pertussis DNA (PCR) B.parapertussis DNA PCR C. pneumoniae DNA (PCR) Coronavirus OC43 (PCR) Coronavirus HKU1 (PCR) Coronavirus 229E (PCR) SARS-CoV-2 (PCR) Coronavirus NL63 (PCR) Human Metapneumovir PCR Influenza Type A (PCR) Influenza Type B (PCR) M. pneumoniae (PCR) Parainfluenza 1 (PCR) Parainfluenza 2 (PCR) Parainfluenza 3 (PCR) Parainfluenza 4 (PCR) RSV (PCR) Entero/Rhino (PCR) 04/10/22 04/10/22 04/10/22 05:47 08:01 08:01 WBC 9.66 RBC 4.41 L Hgb 10.7 L Hct 33.4 L MCV 75.7 L MCH 24.3 L MCHC 32.0 RDW Std Deviation 35.4 L RDW Coeff of Bassem 13.0 Plt Count 204 MPV 10.9 Sodium 139 Potassium 3.4 L Chloride 104 Carbon Dioxide 30 Anion Gap 5 BUN 12 Creatinine 1.18 Est Cr Clr Drug Dosing 101.4 Est GFR ( Amer) 100.9 Est GFR (Non-Af Amer) 87.1 BUN/Creatinine Ratio 10.2 Glucose 111 H POC Glucose 90 Calcium 8.8 Phosphorus 2.8 Magnesium 1.9 Total Bilirubin 0.4 Direct Bilirubin 0.2 AST 16 ALT 10 Alkaline Phosphatase 59 Total Creatine Kinase Total Protein 6.8 Albumin 3.3 L Procalcitonin Adenovirus (PCR) B. pertussis DNA (PCR) B.parapertussis DNA PCR C. pneumoniae DNA (PCR) Coronavirus OC43 (PCR) Coronavirus HKU1 (PCR) Coronavirus 229E (PCR) SARS-CoV-2 (PCR) Coronavirus NL63 (PCR) Human Metapneumovir PCR Influenza Type A (PCR) Influenza Type B (PCR) M. pneumoniae (PCR) Parainfluenza 1 (PCR) Parainfluenza 2 (PCR) Parainfluenza 3 (PCR) Parainfluenza 4 (PCR) RSV (PCR) Entero/Rhino (PCR) 04/10/22 04/10/22 04/10/22 08:01 10:00 12:46 WBC RBC Hgb Hct MCV MCH MCHC RDW Std Deviation RDW Coeff of Bassem Plt Count MPV Sodium Potassium Chloride Carbon Dioxide Anion Gap BUN Creatinine Est Cr Clr Drug Dosing Est GFR ( Amer) Est GFR (Non-Af Amer) BUN/Creatinine Ratio Glucose POC Glucose 106 H Calcium Phosphorus Magnesium Total Bilirubin Direct Bilirubin AST ALT Alkaline Phosphatase Total Creatine Kinase Total Protein Albumin Procalcitonin 0.27 Adenovirus (PCR) Not Detected B. pertussis DNA (PCR) Not Detected B.parapertussis DNA PCR Not Detected C. pneumoniae DNA (PCR) Not Detected Coronavirus OC43 (PCR) Not Detected Coronavirus HKU1 (PCR) Not Detected Coronavirus 229E (PCR) Not Detected SARS-CoV-2 (PCR) Not Detected Coronavirus NL63 (PCR) Not Detected Human Metapneumovir PCR Not Detected Influenza Type A (PCR) Not Detected Influenza Type B (PCR) Not Detected M. pneumoniae (PCR) Not Detected Parainfluenza 1 (PCR) Not Detected Parainfluenza 2 (PCR) Not Detected Parainfluenza 3 (PCR) Not Detected Parainfluenza 4 (PCR) Not Detected RSV (PCR) Not Detected Entero/Rhino (PCR) Not Detected Current Inpatient Medications Current Inpatient Medications: Current Inpatient Medications Acetaminophen (Acetaminophen 325 Mg Tab) 650 mg PO Q4H PRN PRN Reason: Pain Stop: 05/05/22 22:04 Last Admin: 04/10/22 11:33 Dose: 650 mg Haloperidol (Haloperidol 5 Mg Tab) 10 mg PO HS WAYNE Stop: 04/28/22 20:59 Last Admin: 04/09/22 21:05 Dose: 10 mg Haloperidol (Haloperidol 5 Mg Tab) 5 mg PO QAM WAYNE Stop: 05/09/22 08:59 Last Admin: 04/09/22 08:14 Dose: 5 mg Haloperidol Lactate (Haloperidol Lactate 5 Mg/Ml 1 Ml Vial) 5 mg IM DAILY PRN PRN Reason: severe agitation, risk of harm Stop: 04/26/22 16:27 Dextrose (D10w) 1,000 mls @ 0 mls/hr IV .Q0M PRN PRN Reason: protocol (see label comments) Stop: 05/08/22 11:44 Pantoprazole Sodium 40 mg/ (Syringe) 10 mls @ 5 mls/min IV DAILY@1100 WAYNE Stop: 05/09/22 10:59 Last Admin: 04/10/22 10:24 Dose: 5 mls/min Amino Acids 1,801 ml/ (Nutrition (Parenteral)) 1,801 mls @ 75 mls/hr IV .Q24H [facility]; Protocol Stop: 04/10/22 15:59 Last Admin: 04/09/22 16:18 Dose: 75 mls/hr Ampicillin Sodium/Sulbactam Sodium 3,000 mg/ Sodium Chloride 108 mls @ 200 mls/hr IV Q6H [facility]; Protocol Stop: 04/11/22 14:59 Last Infusion: 04/10/22 09:51 Dose: Infused Amino Acids 2,114.2 ml/ (Nutrition (Parenteral)) 2,114.2 mls @ 88 mls/hr IV .Q24H [facility]; Protocol Stop: 04/11/22 15:59 Fat Emulsion-[place] Oil/Soybean Oil (Clinolipid 20% Iv Fat Emulsion) 250 mls @ 41.667 mls/hr IV .Q6H [facility] Stop: 04/10/22 21:59 Ketorolac Tromethamine (Ketorolac Tromethamine 15 Mg/Ml Vial) 15 mg IV Q6H PRN PRN Reason: Moderate-severe pain Stop: 04/10/22 22:04 Last Admin: 04/09/22 02:14 Dose: 15 mg [place] Carbonate ([place] Carbonate 300 Mg Tab) 300 mg PO BID [facility] Stop: 04/25/22 20:59 Last Admin: 04/10/22 09:12 Dose: 300 mg Mirtazapine (Mirtazapine Soltab 15 Mg) 45 mg PO [facility]; Protocol Stop: 04/26/22 20:59 Last Admin: 04/09/22 21:05 Dose: 45 mg Miscellaneous (Stop Clinolipid) 1 each N/A TODAY@22 [facility] Stop: 05/09/22 21:59 Last Admin: 04/09/22 21:08 Dose: 1 each Miscellaneous Information (Tpn/Ppn Consult Pharmacy) 1 each N/A UD PRN PRN Reason: Consult Stop: 05/08/22 10:52 Morphine Sulfate (Morphine Sulfate 4 Mg/Ml 1 Ml Carp\Vial) 4 mg IV Q4H PRN PRN Reason: moderate-severe Pain Stop: 04/21/22 18:35 Last Admin: 04/10/22 09:13 Dose: 4 mg Ondansetron HCl (Ondansetron Inj 2 Mg/Ml 2 Ml Vial) 4 mg IV Q6H PRN PRN Reason: Nausea And Vomiting Stop: 04/27/22 13:39 Last Admin: 04/08/22 20:34 Dose: 4 mg Paroxetine HCl (Paroxetine Hcl 20 Mg Tab) 30 mg PO HS [facility] Stop: 04/24/22 02:44 Last Admin: 04/09/22 21:05 Dose: 30 mg (1) Depression Depression Type: unspecified Qualified Code(s): F32.A - Depression, unspecified
--- NOTE | 2022-04-10 13:30 | Hospitalist Progress Note ---
Date of Service April 10, 2022 Assessment & Plan (1) Pulmonary emboli: Plan: "chronic" appearing on CTA per radiology but obviously at very high risk of VTE due to numerous procedures, bedbound status, etc regardless of chronicity he needs AC start heparin drip will check w/ karthikeyan SIMMONS to see what PO agent is available there - suspect it will be coumadin (2) Fever: Plan: Ongoing high fevers. Blood/urine cx's negative. Repeat COVID PCR negative. Complete respiratory BioFire negative today. CXR without pneumonia. CTA chest with PEs but doubt cause of fever; and CT neg for pneumonia. Etiology? Gen surg does not feel that his fevers are from intra-abdominal source. CPK minimally elevated but NMS unlikely. While awaiting cultures - cont unasyn IV empirically. Procal being normal is reassuring that occult bacterial process is present. (3) Small bowel obstruction: Plan: On 04/07, developed high-grade SBO secondary to foreign body impaction POD #3 -- s/p repeat ex lap with enterotomy and removal of foreign body from distal jejunum by Dr Paiz appreciate the surgical and GI assistance on this complicated gentleman will contact the senior living medical translator to discuss this gentleman's case we need a plan to prevent this from occurring again and again cont clears; diet advancement per gen surg safe tray needed (4) Foreign body in stomach: Plan: Intentional ingestion of multiple FBs--> frequent admissions and ER visits for such in the last year at this facility Underwent EGD 03/[address] Anderson, [facility]. Normal esophagus. 3 cm piece of plastic tied to a piece of headphones and a washer. This was unable to be extracted through upper esophageal sphincter due to wedging in the esophagus. Thus - s/p exploratory laparotomy and gastrotomy with foreign body removal (2 pieces been tied together with plastic washers) 03/27/2022 - Isaias Paiz MD. Patient self removed NGT overnight of 03/27 into 03/28, replacement deferred by surgery. Also, of note, there are reports that staff could not locate the safety pin used to hold the NGT to his gown. Unfortunately had a retained foreign body after 03/27 gastrotomy procedure. Patient had 2nd EGD on 03/[address] Duval of [facility]. 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 s/p upper GI series on 03/31- no leak from stomach, ?retained foreign bodies x 2. KUB 04/01, again shows button-like foreign bodies and a total of 4 foreign bodies-it seems these are new in the last 2 days compared to previous imaging on 03/28-suspicion that he ingested further foreign body since the last EGD. The patient did admit to swallowing paperclips and buttons (metallic snaps from hospital gown) after his surgery. KUB 04/02 now with 10 FBs mostly in large bowel-I do not suspect new FBs ingested in the last day but likely just some of these were bunched together on previous xray or obscured by contrast from previous UGI study Healing well post-op from ex lap His diet was advanced to low fiber on 04/02, but then had 1 episode of vomiting which resulted in metallic foreign body getting stuck in the throat He was transferred to the ICU for observation for airway protection and ENT removed foreign body in the throat under direct laryngoscopy on the morning of 04/03 He then had an episode of emesis with either hemoptysis versus hematemesis on the afternoon of 04/03 and again noted on x-ray to have recurrent metallic foreign body in the throat CT soft tissues neck, chest, and abdomen/pelvis performed-fortunately throat foreign body was gone-suspect he swallowed it, and multiple foreign bodies remain in the stomach and bowels. No evidence of perforation -on 04/03, Attempts to get patient EGD to remove the residual metallic foreign bodies persisting in the stomach were unsuccessful both with local GI and calling to [facility] (on divert, no beds available), [facility] (GI and triage medical lab assistant did not feel transfer was necessary and that general GI could perform the endoscopy), and [facility] felt he would be better served at [facility]. Intermediate Captain contacted by national guard member and does not approve transfer to [facility] unless it is a life or situation. At this time, he is stable and it is not an emergency to transfer him. 04/04, reached out to [facility] and spoke with GI Dr. Burdick who also did not feel a transfer was necessary and that his EGD would not be considered high risk and could be performed at our facility by a willing GI doctor. Discussed with Dr. Villalobos who also d/w Dr. Shrestha (specialty person [facility]) who remain in agreement to not scope here at this time. Dr. Villalobos now thinks can continue conservative measures, await for FBs to pass on own, serial xrays. On 04/05, abdominal x-ray again shows even more new foreign bodies with 1 large foreign body in the stomach but is radiopaque and coiled around. Patient admits to hiding objects in his nose since prior to admission and snorting them down into his throat and swallowing them. He told the nurse he thinks the current foreign body is the cord from his headphones. Again discussed with GI and do not suspect this will cause a problem and does not need to be removed by EGD. Fortunately, several of the previous metallic wire like foreign bodies that were in the stomach are now passed out of the stomach into the small intestine. GI recommending ethics consult to discuss appropriateness of continued treatment and procedures in this patient who continues to ingest foreign bodies in an effort of self-harm. Ethics consult completed and appreciated-see Dr. Das's note for details. 04/06-feels like still foreign body in nose-cannot visualize on exam; ENT on 04/07 performed nasopharyngoscopy and this was negative for any foreign body On 04/07-with new high-grade SBO -- s/p repeat ex lap with portion of pulse oximeter removed from distal jejunum 04/08 - s/p EGD by Dr Duval - multiple foreign bodies removed from stomach The senior living has dictated since 04/01 that the patient now remain in three-point restraints, he has a spit mask in place, and they have asked for soft mitts to be placed on both hands to prevent him from continuing to ingest more foreign bodies. This is crucial. one-on-one sitter remains in room in addition to 2 senior living guards cont clears continue PPN (5) Self-harming behavior: Plan: history of such - numerous occasions with various objects, often by way of ingestion as well as insertion of objects in the urethra. Unclear if this is due to psychiatric condition or malingering No foreign material, detachable material, small pieces/parts should be in arms raised with patient at any time. This includes drawstrings to close/waistbands, EKG stickers, and any loose material. Patient has a recurrent history of quickly ingesting or placing foreign materials into orifices. (6) Foreign body in urethra: Plan: Foreign body in urethra - 03/25 and 03/27 - removal on 2 occasions by [facility] in the OR via cystoscopy- Appreciate urology consultation He then poked a hole in his Hernandez catheter and deflated the balloon and pulled it out himself overnight on 03/31 No evidence of trauma to the penis on exam on 04/01 Received ceftriaxone 1 g IV daily empirically x 7 days - abx now d/c recent urine cx negative developed retention 04/02 -- likely due to multiple FB insertions, inflammation, stricture, etc. Pelvic xray 04/02 no radio-opaque FB Hernandez catheter placed again on 04/02 - maintain for now Awaiting urine culture but thus far negative (7) Schizophrenia: Plan: Unclear if this is a true diagnosis Intermediate records only have a diagnosis of antisocial personality disorder Remains on lithium BID (level wnl this admission), Paxil, Remeron, and Haldol 10mg HS Earlier in his stay, increased haldol dose to 10mg HS due to hearing voices. complaining again about the voices. I corresponded with Dr Zamarripa from psych - added AM dose of haldol 5mg. Appreciate Psych input CPK minimally elevated but NMS not suspected as cause of fevers (8) Depression: Plan: meds as above (9) Anxiety: Plan: meds as above (10) Microcytic anemia: Plan: Fe studies wnl could have thalassemia HEAVY METAL SCREEN negative defer on hemoglobin electrophoresis H/H acceptable (11) DVT prophylaxis: Plan: lovenox had been on hold due to numerous procedures now will be on heparin infusion Plan care d/w gen surg and psych today Admission and Anticipated Discharge Date Admission Date: March 29, 2022 Subjective despite fevers and sweats he states "I feel ok" c/o incisional abd pain only no nausea or emesis minimal headache no neck pain no cough or dyspnea at rest tolerating clears Review of Systems Review of Systems: cv - no chest pain GI - no stool yet but passing flatus Gu - no hematuria musculo - no myalgias; no joint pains skin - no new rash (has tinea versicolor) Physical Exam Physical Exam: gen - NAD, lying comfortably in bed, continues with mesh netting/covering over his face; looks sick but nontoxic mouth - mmm neck - no JVD heart - RR, tachy, s1 s2, no murmur lungs - CTA b/l abd - BS+, NT, abd wall incision clean, soft, mild-moderate distension ext - no edema, pulses 2+ b/l psych - awake, alert, normal conversational speech skin - tinea versicolor (chronic) but no new rash Results & Data Results & Data ([facility]) Vital Signs (Past 12 Hours) Vital Signs Temp Pulse Resp BP Pulse Ox O2 Del Method 04/10/22 07:50 Room Air 04/10/22 11:26 39.0 C H 109 H 17 127/78 96 Room Air 04/10/22 07:49 37.8 C H 105 H 17 139/77 97 Room Air 04/10/22 03:49 38.9 C H Laboratory Results Laboratory Results - last 24 hr 04/09/22 04/09/22 04/09/22 18:07 22:49 23:28 WBC RBC Hgb Hct MCV MCH MCHC RDW Std Deviation RDW Coeff of Bassem Plt Count MPV Sodium Potassium Chloride Carbon Dioxide Anion Gap BUN Creatinine Est Cr Clr Drug Dosing Est GFR ( Amer) Est GFR (Non-Af Amer) BUN/Creatinine Ratio Glucose POC Glucose 103 H 94 Calcium Phosphorus Magnesium Total Bilirubin Direct Bilirubin AST ALT Alkaline Phosphatase Total Creatine Kinase 396 H Total Protein Albumin Procalcitonin Adenovirus (PCR) B. pertussis DNA (PCR) B.parapertussis DNA PCR C. pneumoniae DNA (PCR) Coronavirus OC43 (PCR) Coronavirus HKU1 (PCR) Coronavirus 229E (PCR) SARS-CoV-2 (PCR) Coronavirus NL63 (PCR) Human Metapneumovir PCR Influenza Type A (PCR) Influenza Type B (PCR) M. pneumoniae (PCR) Parainfluenza 1 (PCR) Parainfluenza 2 (PCR) Parainfluenza 3 (PCR) Parainfluenza 4 (PCR) RSV (PCR) Entero/Rhino (PCR) 04/10/22 04/10/22 04/10/22 05:47 08:01 08:01 WBC 9.66 RBC 4.41 L Hgb 10.7 L Hct 33.4 L MCV 75.7 L MCH 24.3 L MCHC 32.0 RDW Std Deviation 35.4 L RDW Coeff of Bassem 13.0 Plt Count 204 MPV 10.9 Sodium 139 Potassium 3.4 L Chloride 104 Carbon Dioxide 30 Anion Gap 5 BUN 12 Creatinine 1.18 Est Cr Clr Drug Dosing 101.4 Est GFR ( Amer) 100.9 Est GFR (Non-Af Amer) 87.1 BUN/Creatinine Ratio 10.2 Glucose 111 H POC Glucose 90 Calcium 8.8 Phosphorus 2.8 Magnesium 1.9 Total Bilirubin 0.4 Direct Bilirubin 0.2 AST 16 ALT 10 Alkaline Phosphatase 59 Total Creatine Kinase Total Protein 6.8 Albumin 3.3 L Procalcitonin Adenovirus (PCR) B. pertussis DNA (PCR) B.parapertussis DNA PCR C. pneumoniae DNA (PCR) Coronavirus OC43 (PCR) Coronavirus HKU1 (PCR) Coronavirus 229E (PCR) SARS-CoV-2 (PCR) Coronavirus NL63 (PCR) Human Metapneumovir PCR Influenza Type A (PCR) Influenza Type B (PCR) M. pneumoniae (PCR) Parainfluenza 1 (PCR) Parainfluenza 2 (PCR) Parainfluenza 3 (PCR) Parainfluenza 4 (PCR) RSV (PCR) Entero/Rhino (PCR) 04/10/22 04/10/22 04/10/22 08:01 10:00 12:46 WBC RBC Hgb Hct MCV MCH MCHC RDW Std Deviation RDW Coeff of Bassem Plt Count MPV Sodium Potassium Chloride Carbon Dioxide Anion Gap BUN Creatinine Est Cr Clr Drug Dosing Est GFR ( Amer) Est GFR (Non-Af Amer) BUN/Creatinine Ratio Glucose POC Glucose 106 H Calcium Phosphorus Magnesium Total Bilirubin Direct Bilirubin AST ALT Alkaline Phosphatase Total Creatine Kinase Total Protein Albumin Procalcitonin 0.27 Adenovirus (PCR) Not Detected B. pertussis DNA (PCR) Not Detected B.parapertussis DNA PCR Not Detected C. pneumoniae DNA (PCR) Not Detected Coronavirus OC43 (PCR) Not Detected Coronavirus HKU1 (PCR) Not Detected Coronavirus 229E (PCR) Not Detected SARS-CoV-2 (PCR) Not Detected Coronavirus NL63 (PCR) Not Detected Human Metapneumovir PCR Not Detected Influenza Type A (PCR) Not Detected Influenza Type B (PCR) Not Detected M. pneumoniae (PCR) Not Detected Parainfluenza 1 (PCR) Not Detected Parainfluenza 2 (PCR) Not Detected Parainfluenza 3 (PCR) Not Detected Parainfluenza 4 (PCR) Not Detected RSV (PCR) Not Detected Entero/Rhino (PCR) Not Detected Diagnostic Findings Chest CTA 04/10/22 13:28 CHEST CTA for PULMONARY ARTERIES CT DOSE: 299.43 mGy.cm HISTORY: persistent fevers; ?PE; ?pneumonia TECHNIQUE: Multiaxial CT images of the chest were performed following the intravenous administration of contrast to evaluate the pulmonary arteries. Maximal intensity projection images were also obtained. A dose lowering technique was utilized adhering to the principles of ALARA. COMPARISON STUDY: Chest CT 04/03/2022. FINDINGS: Normal caliber thoracic aorta with no evidence for dissection. The heart is normal in size. There are trace bilateral pleural effusions. Scattered weblike filling defects seen within the right upper lobar pulmonary artery on image 145 and extending into the right lower lobe superior segmental pulmonary arteries on image 140. This also extends into the right lower lobar pulmonary artery. These are technically age indeterminate but favor chronic pulmonary emboli. No evidence for right-sided heart strain. Limited views of the upper abdomen demonstrate a small amount of pneumoperitoneum. This is likely due to the recent postoperative change. Suture material again seen within the stomach. Normal caliber esophagus. No radiopaque foreign bodies identified within the chest. The thyroid gland enhances normally. No suspicious lytic are blastic osseous lesions. The central airways are patent. No focal lung consolidations to suggest a pneumonia. IMPRESSION: 1. Scattered weblike filling defects seen within the right central pulmonary arteries as described above. These are technically age indeterminate but favor chronic pulmonary emboli. 2. Trace bilateral pleural effusions. 3. No focal lung consolidations to suggest a pneumonia. 4. Small amount of pneumoperitoneum. This may be due to the patient's recent postoperative change. 5. This report was called/faxed to the referring physician following dictation. ACT 112: Negative or not required by law. Electronically signed by: Richard Aburto M.D. 04/10/2022 3:35 PM PG Care Time/CCT Total # of Minutes Spent Total Time Spent with Patient: Total time spent is greater than 50% in coordination of care (as documented) at patient's floor/unit and/or counseling patient: Coding Level of Care Code 38713 Subseq Hosp Care Lvl 3 Diagnoses Pulmonary emboli I26.99 Fever R50.9 Small bowel obstruction K56.609 Foreign body in stomach T18.2XXA Self-harming behavior Foreign body in urethra T19.0XXA Schizophrenia F20.0 Schizophrenia type: paranoid schizophrenia Depression F32.A Depression Type: unspecified Anxiety F41.9 Microcytic anemia D50.9 DVT prophylaxis Z29.9 (1) Depression Depression Type: unspecified Qualified Code(s): F32.A - Depression, unspecified (2) Schizophrenia Schizophrenia type: paranoid schizophrenia Qualified Code(s): F20.0 - Paranoid schizophrenia
[2022-04-10] MEDS ORDERED: OPTIRAY 320 500ml IV ONE (14:56)
--- NOTE | 2022-04-10 15:36 | CT Scan Report ---
CHEST CTA for PULMONARY ARTERIES CT DOSE: 299.43 mGy.cm HISTORY: persistent fevers; ?PE; ?pneumonia TECHNIQUE: Multiaxial CT images of the chest were performed following the intravenous administration of contrast to evaluate the pulmonary arteries. Maximal intensity projection images were also obtaine d. A dose lowering technique was utilized adhering to the principles of ALARA. COMPARISON STUDY: Chest CT 04/03/2022. FINDINGS: Normal caliber thoracic aorta with no evidence for dissection. The heart is normal in size. There are trace bilateral pleural effusions. Scattered weblike filling defects seen within the right upper lobar pulmonary artery on image 145 and extending into the right lower lobe superior segmental pulmonary arteries on image 140. This also extends into the right lower lobar pulmonary artery. Thes e are technically age indeterminate but favor chronic pulmonary emboli. No evidence for right-sided h eart strain. Limited views of the upper abdomen demonstrate a small amount of pneumoperitoneum. This is likely due to the recent postoperative change. Suture material again seen within the stomach. Norm al caliber esophagus. No radiopaque foreign bodies identified within the chest. The thyroid gland enh ances normally. No suspicious lytic are blastic osseous lesions. The central airways are patent. No f ocal lung consolidations to suggest a pneumonia. IMPRESSION: 1. Scattered weblike filling defects seen within the right central pulmonary arteries as described ab ove. These are technically age indeterminate but favor chronic pulmonary emboli. 2. Trace bilateral pleural effusions. 3. No focal lung consolidations to suggest a pneumonia. 4. Small amount of pneumoperitoneum. This may be due to the patient's recent postoperative change. 5. This report was called/faxed to the referring physician following dictation. ACT 112: Negative or not required by law. Electronically signed by: Richard Aburto M.D. 04/10/2022 3:35 PM
[2022-04-10] MEDS ORDERED: PERIPHERAL TPN IV SCH (16:00)
[2022-04-10] MEDS ORDERED: CLINOLIPID 20% IV FAT EMULSION 250 ML IV SCH ×2 (16:00)
[2022-04-10] MEDS ORDERED: AMINO ACIDS 4.25% IV SCH (16:00)
[2022-04-10] MEDS ORDERED: D5W IV SCH (16:00)
[2022-04-10] MEDS ORDERED: Heparin IV Adult Wt-Based Standard *NO* Bolus Protocol IV ONE (17:18)
[2022-04-10 18:03] LABS: Basophils # (auto) 0.01 K/uL (0-0.2); Basophils % (auto) 0.1 %; Eosinophils # (auto) 0.09 K/uL (0-0.50); Eosinophils % (auto) 0.9 %; Hematocrit (blood only) 33.5 % (40.1-51.0); Hemoglobin 10.6 g/dl (14.0-18.0); Immature Granulocytes # (auto) 0.03 K/uL (0.00-0.02); Immature Granulocytes % (auto) 0.3 %; Lymphocytes # (auto) 0.89 K/uL (1.2-3.4); Lymphocytes % (auto) 8.9 %; Mean Corpuscular Hemoglobin 24.3 pg (25.0-34.0); Mean Corpuscular Hgb Conc 31.6 g/dL (32.0-36.0); Mean Corpuscular Volume 76.8 fL (80.0-100.0); Mean Platelet Volume 10.4 fL (9.4-12.4); Monocytes # (auto) 0.78 K/uL (0.24-0.82); Monocytes % (auto) 7.8 %; Neutrophils # (auto) 8.18 K/uL (1.4-6.5); Platelet Count 213 K/uL (130-400); RDW Coefficient of Variation 13.1 % (11.5-14.5); RDW Standard Deviation 36.3 fL (36.4-46.3); Red Blood Count 4.36 M/uL (4.63-6.08); White Blood Count 9.98 K/ul (4.8-10.8)
[2022-04-10] MEDS: HEPARIN SODIUM/DEXTROSE 25,000 UNITS/500 ML BAG IV SCH (18:12)
[2022-04-10 18:27] LABS: INR 1.2 (0.9-1.1); Partial Thromboplastin Ratio 1.2; Partial Thromboplastin Time 32.3 Seconds (21.0-31.0); Prothrombin Time 12.3 Seconds (9.0-12.0)
[2022-04-10] MEDS: STOP CLINOLIPID SCH (23:07)
[2022-04-10] MEDS ORDERED: KETOROLAC TROMETHAMINE 15 MG/ML VIAL IV ONE (23:37)
[2022-04-11 01:32] LABS: Partial Thromboplastin Ratio 2.1
[2022-04-11 01:34] LABS: Partial Thromboplastin Time 58.3 Seconds (21.0-31.0)
[2022-04-11] MEDS: AMPICILLIN/SULBACTAM SOD 3,000 MG in 0.9 % SODIUM CHLORIDE 100 ML IV SCH ×2 (03:00→09:45)
[2022-04-11] MEDS: MoRPHine SULFATE 4 MG/ML 1 ML CARP\\VIAL IV PRN ×4 (03:06→21:36)
[2022-04-11 07:22] LABS: BUN Creatinine Ratio 11.5 (10-20); Calcium 9.2 mg/dl (8.5-10.1); Est GFR (African American) 117.6 ml/min; Est GFR (Non-African American) 101.4 ml/min; Phosphorus 5.1 mg/dl (2.5-4.9)
[2022-04-11 07:29] LABS: Partial Thromboplastin Ratio 2.2
[2022-04-11 07:30] LABS: Partial Thromboplastin Time 61.3 Seconds (21.0-31.0)
[2022-04-11] MEDS: LITHIUM CARBONATE 300 MG TAB PO SCH ×2 (09:45→20:29)
[2022-04-11] MEDS: haloperidoL 5 MG TAB PO SCH (11:35)
[2022-04-11] MEDS: PANTOprazole 40 MG in SYRINGE 0 ML IV SCH (11:35)
[2022-04-11] MEDS: HEPARIN SODIUM/DEXTROSE 25,000 UNITS/500 ML BAG IV SCH (12:12)
--- NOTE | 2022-04-11 15:14 | Surgery Progress Note ---
Date of Service April 11, 2022 Assessment & Plan (1) Small bowel obstruction: (2) Foreign body in stomach: Plan POD 15 and 4 s/p ex laparotomies for foreign objects in stomach and small bowel respectively. He is continuing to pass flatus and has a fairly benign abdomen. White count is normal. advance to fulls Pulmonary emboli - ok to be anticoagulated Aggressive pulmonary toilet strict isolation from all things able to be swallowed Discussed the case with Dr. Loya the hospitalist. I do not believe the abdomen is the source of his fevers. There will be no utility to a CT scan at this time being so close to his last surgery. We will continue to monitor with serial exa ms. Dr. Conway covering over the weekend Admission and Anticipated Discharge Date Admission Date: March 29, 2022 Subjective tolerating clears; no nausea/vomiting; passing flatus; no BM yet; still having fevers Physical Exam Physical Exam: Abdomen soft, minimal tenderness, minimal distention; incision healing well with dermabond; no signs of infection Results & Data ([facility]) Vital Signs (Past 12 Hours) Vital Signs Temp Pulse Pulse Resp BP Pulse Ox O2 Del Method 04/11/22 14:51 36.9 C 78 18 129/81 98 Room Air 04/11/22 07:13 36.8 C 78 16 116/77 98 Room Air 04/11/22 03:27 36.6 C
[2022-04-11] MEDS ORDERED: D5W IV SCH (16:00)
[2022-04-11] MEDS ORDERED: PERIPHERAL TPN IV SCH (16:00)
[2022-04-11] MEDS ORDERED: AMINO ACIDS 4.25% IV SCH (16:00)
[2022-04-11] MEDS ORDERED: CLINOLIPID 20% IV FAT EMULSION 250 ML IV SCH (16:00)
--- NOTE | 2022-04-11 19:33 | Hospitalist Progress Note ---
Date of Service April 11, 2022 Assessment & Plan (1) Pulmonary emboli: Plan: "chronic" appearing on CTA per radiology but obviously at very high risk of VTE due to numerous surgical procedures, bedbound status, etc regardless of chronicity he needs AC started heparin drip 04/10/22 I spoke with the medical delivery driver at [facility], Dr Sánchez they only have coumadin available will not start until we know he is reliably taking PO, no further procedures needed, fevers resolved, etc (2) Fever: Plan: Ongoing high fevers. Blood/urine cx's negative. Repeat COVID PCR negative. Complete respiratory BioFire negative. CXR without pneumonia. CTA chest with PEs but doubt cause of fever; and CT neg for pneumonia. Etiology? Gen surg does not feel that his fevers are from intra-abdominal source. CPK minimally elevated but NMS unlikely. CPK today now nl. No rigidity on exam either. Procal being normal is reassuring but fevers are still worrisome. Blood/urine cx's remain negative to date. Check esr and crp in am. Repeat CBC in am. His fevers have improved with IV unasyn which may argue that there is an occult bacterial process somewhere. repeat CT a/p?? (3) Small bowel obstruction: Plan: On 04/07, developed high-grade SBO secondary to foreign body impaction POD #4 -- s/p repeat ex lap with enterotomy and removal of foreign body from distal jejunum by Dr Paiz appreciate the surgical and GI assistance on this complicated gentleman diet advanced to full liquids today by gen surg see above re: fever safe tray needed (4) Foreign body in stomach: Plan: Intentional ingestion of multiple FBs--> frequent admissions and ER visits for such in the last year at this facility Underwent EGD 03/[address] Anderson, [facility]. Normal esophagus. 3 cm piece of plastic tied to a piece of headphones and a washer. This was unable to be extracted through upper esophageal sphincter due to wedging in the esophagus. Thus - s/p exploratory laparotomy and gastrotomy with foreign body removal (2 pieces been tied together with plastic washers) 03/27/2022 - Isaias Paiz MD. Patient self removed NGT overnight of 03/27 into 03/28, replacement deferred by surgery. Also, of note, there are reports that staff could not locate the safety pin used to hold the NGT to his gown. Unfortunately had a retained foreign body after 03/27 gastrotomy procedure. Patient had 2nd EGD on 03/[address] Duval of [facility]. 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 s/p upper GI series on 03/31- no leak from stomach, ?retained foreign bodies x 2. KUB 04/01, again shows button-like foreign bodies and a total of 4 foreign bodies-it seems these are new in the last 2 days compared to previous imaging on 03/28-suspicion that he ingested further foreign body since the last EGD. The patient did admit to swallowing paperclips and buttons (metallic snaps from hospital gown) after his surgery. KUB 04/02 now with 10 FBs mostly in large bowel-I do not suspect new FBs ingested in the last day but likely just some of these were bunched together on previous xray or obscured by contrast from previous UGI study Healing well post-op from ex lap His diet was advanced to low fiber on 04/02, but then had 1 episode of vomiting which resulted in metallic foreign body getting stuck in the throat He was transferred to the ICU for observation for airway protection and ENT removed foreign body in the throat under direct laryngoscopy on the morning of 04/03 He then had an episode of emesis with either hemoptysis versus hematemesis on the afternoon of 04/03 and again noted on x-ray to have recurrent metallic fo reign body in the throat CT soft tissues neck, chest, and abdomen/pelvis performed-fortunately throat foreign body was gone-suspect he swallowed it, and multiple foreign bodies remain in the stomach and bowels. No evidence of perforation -on 04/03, Attempts to get patient EGD to remove the residual metallic foreign bodies persisting in the stomach were unsuccessful both with local GI and calling to [facility] (on divert, no beds available), [facility] (GI and triage medical doctor nuclear medicine did not feel transfer was necessary and that general GI could perform the endoscopy), and [facility] felt he would be better served at [facility] Retirement Captain contacted by security guard dispatcher and does not approve transfer to [facility] unless it is a life or situation. At this time, he is stable and it is not an emergency to transfer him. 04/04, reached out to [facility] and spoke with GI Dr. Burdick who also did not feel a transfer was necessary and that his EGD would not be considered high risk and could be performed at our facility by a willing GI doctor. Discussed with Dr. Villalobos who also d/w Dr. Shrestha (entertainment & media correspondent [facility]) who remain in agreement to not scope here at this time. Dr. Villalobos now thinks can continue conservative measures, await for FBs to pass on own, serial xrays. On 04/05, abdominal x-ray again shows even more new foreign bodies with 1 large foreign body in the stomach but is radiopaque and coiled around. Patient admits to hiding objects in his nose since prior to admission and snorting them down into his throat and swallowing them. He told the nurse he thinks the current foreign body is the cord from his headphones. Again discussed with GI and do not suspect this will cause a problem and does not need to be removed by EGD. Fortunately, several of the previous metallic wire like foreign bodies that were in the stomach are now passed out of the stomach into the small intestine. GI recommending ethics consult to discuss appropriateness of continued treatment and procedures in this patient who continues to ingest foreign bodies in an effort of self-harm. Ethics consult completed and appreciated-see Dr. Samuels our's note for details. 04/06-feels like still foreign body in nose-cannot visualize on exam; ENT on 04/07 performed nasopharyngoscopy and this was negative for any foreign body On 04/07-with new high-grade SBO -- s/p repeat ex lap with portion of pulse oximeter removed from distal jejunum 04/08 - s/p EGD by Dr Duval - multiple foreign bodies removed from stomach The skilled nursing has dictated since 04/01 that the patient now remain in three-point restraints, he has a spit mask in place, and they have asked for soft mitts to be placed on both hands to prevent him from continuing to ingest more foreign bodies. This is crucial. one-on-one sitter remains in room in addition to 2 skilled nursing guards full liquid diet today continue PPN until PO intake is consistent & reliable I discussed his case with Dr Sánchez, skilled nursing medical delivery driver at [facility] The skilled nursing has struggled with preventing the recurrent FB ingestions We discussed how we could potentially prevent these ingestions No good answer, however (5) Self-harming behavior: Plan: history of such - numerous occasions with various objects, often by way of ingestion as well as insertion of objects in the urethra. Unclear if this is due to psychiatric condition or malingering No foreign material, detachable material, small pieces/parts should be in arms raised with patient at any time. This includes drawstrings to close/waistbands, EKG stickers, and any loose material. Patient has a recurrent history of quickly ingesting or placing foreign materials into orifices. (6) Foreign body in urethra: Plan: Foreign body in urethra - 03/25 and 03/27 - removal on 2 occasions by [facility] in the OR via cystoscopy- Appreciate urology consultation He then poked a hole in his Ruiz catheter and deflated the balloon and pulled it out himself overnight on 03/31 No evidence of trauma to the penis on exam on 04/01 Received ceftriaxone 1 g IV daily empirically x 7 days - abx now d/c recent urine cx negative developed retention 04/02 -- likely due to multiple FB insertions, inflammation, stricture, etc. Pelvic xray 04/02 no radio-opaque FB Ruiz catheter placed again on 04/02 - maintain for now Awaiting urine culture but thus far negative (7) Schizophrenia: Plan: Unclear if this is a true diagnosis Retirement records only have a diagnosis of antisocial personality disorder Remains on lithium BID (level wnl this admission), Paxil, Remeron, and Haldol 10mg HS Earlier in his stay, increased haldol dose to 10mg HS due to hearing voices. complaining again about the voices. added AM dose of haldol 5mg. Appreciate Psych input at this point NMS NOT suspected - resume BID haldol - 5mg am, 10mg HS (8) Depression: Plan: meds as above (9) Anxiety: Plan: meds as above (10) Microcytic anemia: Plan: Fe studies wnl could have thalassemia HEAVY METAL SCREEN negative defer on hemoglobin electrophoresis H/H acceptable (11) DVT prophylaxis: Plan: heparin drip Plan care d/w gen surg, skilled nursing medical delivery driver, case management Admission and Anticipated Discharge Date Admission Date: March 29, 2022 Subjective patient asks when he can have regular food he continues with fevers, chills abd pain remains - mainly over his incision this am he had episode of chest pain and dyspnea - it woke him from sleep; lasted about 20 minutes then went away none since denies leg pains denies dyspnea denies cough no neck pain no further headache Review of Systems Review of Systems: gen - ongoing chills, fevers cv - see HPI pulm - no cough GI - no nausea/emesis; +flatus, no stool - ruiz in place, clear yellow urine musculo - no joint pains or extremity pains Physical Exam Physical Exam: gen - NAD, lying comfortably in bed, continues with mesh netting/covering over his face; looks sick but nontoxic mouth - mmm; mild posterior throat irritation - from recent intubation for surgery neck - no JVD heart - RR, tachy, s1 s2, no murmur lungs - CTA b/l abd - BS+, NT, abd wall incision clean, soft, mild-moderate distension about the same chest - mildly tender to palpation b/l lateral chest ext - no edema, pulses 2+ b/l psych - awake, alert, normal conversational speech skin - tinea versicolor (chronic) but no new rash musculo - no joint synovitis Results & Data Results & Data ([facility]) Vital Signs (Past 12 Hours) Vital Signs Temp Pulse Resp BP Pulse Ox O2 Del Method 04/11/22 14:51 36.9 C 78 18 129/81 98 Room Air Laboratory Results Laboratory Results - last 24 hr 04/10/22 04/11/22 04/11/22 23:59 00:37 05:54 APTT 58.3 H* PTT Ratio 2.1 Sodium Potassium Chloride Carbon Dioxide Anion Gap BUN Creatinine Est Cr Clr Drug Dosing Est GFR ( Amer) Est GFR (Non-Af Amer) BUN/Creatinine Ratio Glucose POC Glucose 112 H 95 Calcium Phosphorus Magnesium Total Creatine Kinase 04/11/22 04/11/22 04/11/22 06:30 06:30 12:09 APTT 61.3 H* PTT Ratio 2.2 Sodium 138 Potassium 4.0 Chloride 103 Carbon Dioxide 31 Anion Gap 4 BUN 12 Creatinine 1.04 Est Cr Clr Drug Dosing 115.0 Est GFR ( Amer) 117.6 Est GFR (Non-Af Amer) 101.4 BUN/Creatinine Ratio 11.5 Glucose 107 H POC Glucose 93 Calcium 9.2 Phosphorus 5.1 H D Magnesium 2.0 Total Creatine Kinase 154 04/11/22 17:54 APTT PTT Ratio Sodium Potassium Chloride Carbon Dioxide Anion Gap BUN Creatinine Est Cr Clr Drug Dosing Est GFR ( Amer) Est GFR (Non-Af Amer) BUN/Creatinine Ratio Glucose POC Glucose 96 Calcium Phosphorus Magnesium Total Creatine Kinase PG Care Time/CCT Total # of Minutes Spent Total Time Spent with Patient: Total time spent is greater than 50% in coordination of care (as documented) at patient's floor/unit and/or counseling patient: Coding Level of Care Code 52176 Subseq Hosp Care Lvl 3 Diagnoses Pulmonary emboli I26.99 Fever R50.9 Small bowel obstruction K56.609 Foreign body in stomach T18.2XXA Self-harming behavior Foreign body in urethra T19.0XXA Schizophrenia F20.0 Schizophrenia type: paranoid schizophrenia Depression F32.A Depression Type: unspecified Anxiety F41.9 Microcytic anemia D50.9 DVT prophylaxis Z29.9 (1) Depression Depression Type: unspecified Qualified Code(s): F32.A - Depression, unspecified (2) Schizophrenia Schizophrenia type: paranoid schizophrenia Qualified Code(s): F20.0 - Paranoid schizophrenia
[2022-04-12] MEDS: ONDANSETRON INJ 2 MG/ML 2 ML VIAL IV PRN ×2 (00:51→12:38)
[2022-04-12] MEDS: MoRPHine SULFATE 4 MG/ML 1 ML CARP\\VIAL IV PRN ×4 (01:35→14:23)
[2022-04-12] MEDS: HEPARIN SODIUM/DEXTROSE 25,000 UNITS/500 ML BAG IV SCH (05:31)
[2022-04-12 08:09] LABS: Basophils # (auto) 0.01 K/uL (0-0.2); Basophils % (auto) 0.1 %; Eosinophils # (auto) 0.21 K/uL (0-0.50); Eosinophils % (auto) 2.6 %; Hematocrit (blood only) 31.7 % (40.1-51.0); Hemoglobin 10.1 g/dl (14.0-18.0); Immature Granulocytes # (auto) 0.01 K/uL (0.00-0.02); Immature Granulocytes % (auto) 0.1 %; Lymphocytes # (auto) 1.09 K/uL (1.2-3.4); Lymphocytes % (auto) 13.5 %; Mean Corpuscular Hemoglobin 24.2 pg (25.0-34.0); Mean Corpuscular Hgb Conc 31.9 g/dL (32.0-36.0); Mean Corpuscular Volume 75.8 fL (80.0-100.0); Mean Platelet Volume 10.6 fL (9.4-12.4); Monocytes # (auto) 0.77 K/uL (0.24-0.82); Monocytes % (auto) 9.5 %; Neutrophils # (auto) 5.99 K/uL (1.4-6.5); Neutrophils % (auto) 74.2 %; Platelet Count 276 K/uL (130-400); RDW Coefficient of Variation 12.9 % (11.5-14.5); RDW Standard Deviation 35.4 fL (36.4-46.3); Red Blood Count 4.18 M/uL (4.63-6.08); White Blood Count 8.08 K/ul (4.8-10.8)
[2022-04-12 08:34] LABS: Partial Thromboplastin Ratio 2.2
[2022-04-12] MEDS: LITHIUM CARBONATE 300 MG TAB PO SCH ×2 (08:35→20:22)
[2022-04-12] MEDS: haloperidoL 5 MG TAB PO SCH ×2 (08:36→20:20)
[2022-04-12 08:42] LABS: BUN Creatinine Ratio 11.6 (10-20); C Reactive Protein 18.25 mg/dl (0-0.5); Calcium 9.5 mg/dl (8.5-10.1); Creatinine Clr Calc Pharmacy 125.9 ml/min; Est GFR (African American) 131.2 ml/min; Est GFR (Non-African American) 113.2 ml/min; Magnesium 1.9 mg/dl (1.7-2.4); Phosphorus 4.9 mg/dl (2.5-4.9); Potassium 3.9 mmol/L (3.5-5.1)
[2022-04-12] MEDS ORDERED: PIPERACILLIN/TAZOBACTAM 3.375 GM in DEXTROSE 5% 100 ML IV ONE (10:00)
[2022-04-12] MEDS: PANTOprazole 40 MG in SYRINGE 0 ML IV SCH (11:18)
--- NOTE | 2022-04-12 11:21 | Electrocardiogram Report ---
Test Reason : Blood Pressure : / mmHG Vent. Rate : 088 BPM Atrial Rate : 088 BPM P-R Int : 148 ms QRS Dur : 086 ms QT Int : 362 ms P-R-T Axes : 075 032 030 degrees QTc Int : 438 ms Normal sinus rhythm Chronic ST elevation, consider early repolarization, pericarditis, or injury Abnormal ECG When compared with ECG of 03-APR-2022 05:38, T wave inversion less evident in Anterior leads Confirmed by Benjamin Hidalgo ([id number]) on 04/12/2022 11:21:18 AM Referred By: REFERRED SELF Confirmed By:Benjamin Hidalgo
--- NOTE | 2022-04-12 11:24 | Surgery Progress Note ---
Date of Service April 12, 2022 Assessment & Plan (1) Small bowel obstruction: (2) Foreign body in stomach: Plan: F/U S/P exp lap enterotomy for remove FB, POD 5, pt is stable, Temp is better, T 37.1, tolerated diet, continue full liquid diet and iv antibiotic, repeat labs in morning, will F/U, Plan POD 15 and 4 s/p ex laparotomies for foreign objects in stomach and small bowel respectively. He is continuing to pass flatus and has a fairly benign abdomen. White count is normal. advance to fulls Pulmonary emboli - ok to be anticoagulated Aggressive pulmonary toilet strict isolation from all things able to be swallowed Discussed the case with Dr. Loya the hospitalist. I do not believe the abdomen is the source of his fevers. There will be no utility to a CT scan at this time being so close to his last surgery. We will continue to monitor with serial exams. Dr. Conway covering over the weekend Admission and Anticipated Discharge Date Admission Date: March 29, 2022 Supervising Physician Co-Signing Physician Notes I performed a history and physical examination of the patient today, including specifically on physical exam - soft abdomen. I have discussed the patient's management with the advanced practitioner. Please refer to the nurse pra ctitioner's note for the documented findings and plan of care. He feels fine today, no abdominal pain. Wound looks fine. Plan for EGD to remove the foreign bodies in the stomach. Patient was explained in detail regarding risks, benefits, limitations and alternatives of the above endoscopic procedure. Risks of intravenous sedation used for procedure were also explained. Risks include, but not limited to perforation, bleeding, infection, respiratory distress, cardiac arrest and . Patient is also aware about the possibility of missed lesion. Patient's questions were answered. The patient verbalized understanding the information and agreed to undergo the procedure. Subjective patient asks when he can have regular food he continues with fevers, chills abd pain remains - mainly over his incision this am he had episode of chest pain and dyspnea - it woke him from sleep; lasted about 20 minutes then went away none since denies leg pains denies dyspnea denies cough no neck pain no further headache 04/12/2022 11:[address] Conway F/U S/P exp lap enterotomy for remove FB, POD 5, pt had Fever on 04/09. 04/10. T 38-39, yesterday T 37.4, today T 37.1, pt has some abdominal pain, passed gas, no nausea, no vomiting, tolerated diet, normal WBC Physical Exam Constitutional: WD/WN, vitals as above no distress Eyes: PERRL, conjunctivae normal, anicteric sclerae Neck: trachea midline, no thyromegaly Respiratory: normal respiratory effort, lungs clear to auscultation Cardiovascular: RRR, no murmur, no edema Gastrointestinal (Abdomen): middle line incision intact, no redness, mild tenderness at incision site, no rebound pain,no distend, BS +, Musculoskeletal: no cyanosis or clubbing, extremities motor strength 5/5 Neurologic: patellar DTR's 2+ bilat, sensation intact Psychiatric: A+Ox3, euthymic affect Results & Data ([facility]) Vital Signs (Past 12 Hours) Vital Signs Temp Pulse Resp BP Pulse Ox O2 Del Method 04/12/22 10:41 37.1 C 04/12/22 06:54 36.6 C 90 17 126/73 100 Room Air Laboratory Results Pending at discharge 03/25/22 01:11 Surgical Pathology [PTH] Routine 03/27/22 13:42 Surgical Pathology [PTH] Routine 03/28/22 11:45 Surgical Pathology [PTH] Routine 04/03/22 07:01 Surgical Pathology [PTH] Routine 04/07/22 16:57 Surgical Pathology [PTH] Routine 04/08/22 18:14 Surgical Pathology [PTH] Routine Procedures Drainage of Bladder with Drainage Device, Via Natural or Artificial Opening (11/21/21) Excision of Stomach, Via Natural or Artificial Opening Endoscopic, Diagnostic (11/21/21) Extirpation of Matter from Jejunum, Via Natural or Artificial Opening Endoscopic (11/29/21) Extirpation of Matter from Lower Esophagus, Via Natural or Artificial Opening Endoscopic (11/29/21) Extirpation of Matter from Small Intestine, Via Natural or Artificial Opening Endoscopic (11/29/21) Extirpation of Matter from Stomach, Via Natural or Artificial Opening Endoscopic (11/29/21) Extirpation of Matter from Urethra, Via Natural or Artificial Opening Endoscopic (12/08/21) Inspection of Bladder, Via Natural or Artificial Opening Endoscopic (06/12/22) Lab Results 03/24/22 03/24/22 03/24/22 Range/Units 20:48 20:48 20:48 WBC 9.52 (4.8-10.8) K/ul RBC 4.87 (4.63-6.08) M/uL Hgb 12.1 L (14.0-18.0) g/dl Hct 37.9 L (40.1-51.0) % MCV 77.8 L (80.0-100.0) fL MCH 24.8 L (25.0-34.0) pg MCHC 31.9 L (32.0-36.0) g/dL RDW Std Deviation 40.8 (36.4-46.3) fL RDW Coeff of Bassem 14.7 H (11.5-14.5) % Plt Count 246 (130-400) K/uL MPV 11.6 (9.4-12.4) fL Immature Gran % (Auto) 0.3 % Neut % (Auto) 74.1 % Lymph % (Auto) 16.8 % [place] % (Auto) 8.4 % Eos % (Auto) 0.1 % Baso % (Auto) 0.3 % Neut # (Auto) 7.05 H (1.4-6.5) K/uL Lymph # (Auto) 1.60 (1.2-3.4) K/uL [place] # (Auto) 0.80 (0.24-0.82) K/uL Eos # (Auto) 0.01 (0-0.50) K/uL Baso # (Auto) 0.03 (0-0.2) K/uL Immature Gran # (Auto) 0.03 H (0.00-0.02) K/uL Ovalocytes ESR (0-15) mm/hr PT 11.1 (9.0-12.0) Seconds INR 1.0 (0.9-1.1) APTT 24.6 (21.0-31.0) Seconds PTT Ratio 0.9 Sodium 139 (136-145) mmol/L Potassium 3.8 (3.5-5.1) mmol/L Chloride 104 (98-107) mmol/L Carbon Dioxide 26 (21-32) mmol/L Anion Gap 9 (3-11) BUN 12 (6-23) mg/dl Creatinine 1.20 (0.6-1.4) mg/dl Est Cr Clr Drug Dosing 108.8 ml/min Est GFR ( Amer) 98.9 ml/min Est GFR (Non-Af Amer) 85.3 ml/min BUN/Creatinine Ratio 10.0 (10-20) Glucose 92 (70-99(Fasting)) mg/dl POC Glucose (70-99) mg/dl Calcium 9.6 (8.5-10.1) mg/dl Phosphorus (2.5-4.9) mg/dl Magnesium (1.7-2.4) mg/dl Iron (35-175) mcg/dl TIBC (250-450) mcg/dl Unsaturated IBC (155-355) mcg/dl Transferrin % Sat (20-50) % Ferritin (8-388) ng/ml Total Bilirubin (0.2-1.0) mg/dl Direct Bilirubin (0-0.2) mg/dl AST (13-39) U/L ALT (7-52) U/L Alkaline Phosphatase (34-104) U/L Total Creatine Kinase (30-223) U/L C-Reactive Protein (0-0.5) mg/dl Total Protein (6.0-8.3) gm/dl Albumin (3.4-5.0) gm/dl Globulin (2.5-4.0) gm/dl Albumin/Globulin Ratio (0.9-2) Procalcitonin (0-0.5) ng/ml Urine Color Urine Appearance (Clear) Urine pH (4.5-7.5) Ur Specific [place] (1.000-1.030) Urine Protein (Negative) Urine Glucose (UA) (Negative) Urine Ketones (Negative) Urine Blood (Negative) Urine Nitrite (Negative) Urine Bilirubin (Negative) Urine Urobilinogen (Negative) Ur Leukocyte Esterase (Negative) Urine WBC (Auto) (0-5) /hpf Urine RBC (Auto) (0-4) /hpf U Hyaline Cast (Auto) (0-5) /lpf U Epithel Cells (Auto) (0-5) /lpf Urine Bacteria (Auto) (Negative) Ur Renal Epithelial Cell Urine Mucus (None Prsent) [place] (0.6-1.2) mmol/L Arsenic (<23) mcg/L Lead (<3.5) mcg/dL Mercury (<=10) mcg/L Adenovirus (PCR) (NotDetected) B. pertussis DNA (PCR) (NotDetected) B.parapertussis DNA PCR (NotDetected) C. pneumoniae DNA (PCR) (NotDetected) Coronavirus OC43 (PCR) (NotDetected) Coronavirus HKU1 (PCR) (NotDetected) Coronavirus 229E (PCR) (NotDetected) SARS-CoV-2 (PCR) (Negative) Coronavirus NL63 (PCR) (NotDetected) Human Metapneumovir PCR (NotDetected) Influenza Type A (PCR) (NotDetected) Influenza Type B (PCR) (NotDetected) M. pneumoniae (PCR) (NotDetected) Parainfluenza 1 (PCR) (NotDetected) Parainfluenza 2 (PCR) (NotDetected) Parainfluenza 3 (PCR) (NotDetected) Parainfluenza 4 (PCR) (NotDetected) RSV (PCR) (NotDetected) Entero/Rhino (PCR) (NotDetected) SARS-CoV-2, RNA, NAAT (NEGATIVE) 03/24/22 03/25/22 03/25/22 Range/Units 22:56 05:39 05:39 WBC 8.78 (4.8-10.8) K/ul RBC 4.95 (4.63-6.08) M/uL Hgb 12.0 L (14.0-18.0) g/dl Hct 38.3 L (40.1-51.0) % MCV 77.4 L (80.0-100.0) fL MCH 24.2 L (25.0-34.0) pg MCHC 31.3 L (32.0-36.0) g/dL RDW Std Deviation 41.5 (36.4-46.3) fL RDW Coeff of Bassem 14.8 H (11.5-14.5) % Plt Count 219 (130-400) K/uL MPV 11.1 (9.4-12.4) fL Immature Gran % (Auto) 0.2 % Neut % (Auto) 90.4 % Lymph % (Auto) 8.0 % [place] % (Auto) 1.3 % Eos % (Auto) 0.0 % Baso % (Auto) 0.1 % Neut # (Auto) 7.94 H (1.4-6.5) K/uL Lymph # (Auto) 0.70 L (1.2-3.4) K/uL [place] # (Auto) 0.11 L (0.24-0.82) K/uL Eos # (Auto) 0.00 (0-0.50) K/uL Baso # (Auto) 0.01 (0-0.2) K/uL Immature Gran # (Auto) 0.02 (0.00-0.02) K/uL Ovalocytes 1+ ESR (0-15) mm/hr PT (9.0-12.0) Seconds INR (0.9-1.1) APTT (21.0-31.0) Seconds PTT Ratio Sodium 138 (136-145) mmol/L Potassium 4.2 (3.5-5.1) mmol/L Chloride 102 (98-107) mmol/L Carbon Dioxide 27 (21-32) mmol/L Anion Gap 9 (3-11) BUN 12 (6-23) mg/dl Creatinine 1.24 (0.6-1.4) mg/dl Est Cr Clr Drug Dosing 105.6 ml/min Est GFR ( Amer) 95.0 ml/min Est GFR (Non-Af Amer) 82.0 ml/min BUN/Creatinine Ratio 9.7 L (10-20) Glucose 105 H (70-99(Fasting)) mg/dl POC Glucose (70-99) mg/dl Calcium 9.6 (8.5-10.1) mg/dl Phosphorus (2.5-4.9) mg/dl Magnesium 1.9 (1.7-2.4) mg/dl Iron (35-175) mcg/dl TIBC (250-450) mcg/dl Unsaturated IBC (155-355) mcg/dl Transferrin % Sat (20-50) % Ferritin (8-388) ng/ml Total Bilirubin 0.4 (0.2-1.0) mg/dl Direct Bilirubin (0-0.2) mg/dl AST 32 (13-39) U/L ALT 65 H (7-52) U/L Alkaline Phosphatase 85 (34-104) U/L Total Creatine Kinase (30-223) U/L C-Reactive Protein (0-0.5) mg/dl Total Protein 7.9 (6.0-8.3) gm/dl Albumin 4.5 (3.4-5.0) gm/dl Globulin 3.4 (2.5-4.0) gm/dl Albumin/Globulin Ratio 1.3 (0.9-2) Procalcitonin (0-0.5) ng/ml Urine Color Urine Appearance (Clear) Urine pH (4.5-7.5) Ur Specific [place] (1.000-1.030) Urine Protein (Negative) Urine Glucose (UA) (Negative) Urine Ketones (Negative) Urine Blood (Negative) Urine Nitrite (Negative) Urine Bilirubin (Negative) Urine Urobilinogen (Negative) Ur Leukocyte Esterase (Negative) Urine WBC (Auto) (0-5) /hpf Urine RBC (Auto) (0-4) /hpf U Hyaline Cast (Auto) (0-5) /lpf U Epithel Cells (Auto) (0-5) /lpf Urine Bacteria (Auto) (Negative) Ur Renal Epithelial Cell Urine Mucus (None Prsent) [place] (0.6-1.2) mmol/L Arsenic (<23) mcg/L Lead (<3.5) mcg/dL Mercury (<=10) mcg/L Adenovirus (PCR) (NotDetected) B. pertussis DNA (PCR) (NotDetected) B.parapertussis DNA PCR (NotDetected) C. pneumoniae DNA (PCR) (NotDetected) Coronavirus OC43 (PCR) (NotDetected) Coronavirus HKU1 (PCR) (NotDetected) Coronavirus 229E (PCR) (NotDetected) SARS-CoV-2 (PCR) (Negative) Coronavirus NL63 (PCR) (NotDetected) Human Metapneumovir PCR (NotDetected) Influenza Type A (PCR) (NotDetected) Influenza Type B (PCR) (NotDetected) M. pneumoniae (PCR) (NotDetected) Parainfluenza 1 (PCR) (NotDetected) Parainfluenza 2 (PCR) (NotDetected) Parainfluenza 3 (PCR) (NotDetected) Parainfluenza 4 (PCR) (NotDetected) RSV (PCR) (NotDetected) Entero/Rhino (PCR) (NotDetected) SARS-CoV-2, RNA, NAAT NEGATIVE (NEGATIVE) 03/25/22 03/26/22 03/26/22 Range/Units Unknown 07:29 07:29 WBC 7.27 (4.8-10.8) K/ul RBC 4.68 (4.63-6.08) M/uL Hgb 11.4 L (14.0-18.0) g/dl Hct 36.5 L (40.1-51.0) % MCV 78.0 L (80.0-100.0) fL MCH 24.4 L (25.0-34.0) pg MCHC 31.2 L (32.0-36.0) g/dL RDW Std Deviation 40.5 (36.4-46.3) fL RDW Coeff of Bassem 14.5 (11.5-14.5) % Plt Count 212 (130-400) K/uL MPV 11.0 (9.4-12.4) fL Immature Gran % (Auto) 0.1 % Neut % (Auto) 67.8 % Lymph % (Auto) 23.7 % [place] % (Auto) 7.7 % Eos % (Auto) 0.4 % Baso % (Auto) 0.3 % Neut # (Auto) 4.93 (1.4-6.5) K/uL Lymph # (Auto) 1.72 (1.2-3.4) K/uL [place] # (Auto) 0.56 (0.24-0.82) K/uL Eos # (Auto) 0.03 (0-0.50) K/uL Baso # (Auto) 0.02 (0-0.2) K/uL Immature Gran # (Auto) 0.01 (0.00-0.02) K/uL Ovalocytes ESR (0-15) mm/hr PT (9.0-12.0) Seconds INR (0.9-1.1) APTT (21.0-31.0) Seconds PTT Ratio Sodium 140 (136-145) mmol/L Potassium 3.5 (3.5-5.1) mmol/L Chloride 106 (98-107) mmol/L Carbon Dioxide 28 (21-32) mmol/L Anion Gap 6 (3-11) BUN 12 (6-23) mg/dl Creatinine 1.16 (0.6-1.4) mg/dl Est Cr Clr Drug Dosing 112.9 ml/min Est GFR ( Amer) 103.0 ml/min Est GFR (Non-Af Amer) 88.9 ml/min BUN/Creatinine Ratio 10.3 (10-20) Glucose 88 (70-99(Fasting)) mg/dl POC Glucose (70-99) mg/dl Calcium 8.9 (8.5-10.1) mg/dl Phosphorus (2.5-4.9) mg/dl Magnesium 2.0 (1.7-2.4) mg/dl Iron (35-175) mcg/dl TIBC (250-450) mcg/dl Unsaturated IBC (155-355) mcg/dl Transferrin % Sat (20-50) % Ferritin (8-388) ng/ml Total Bilirubin 0.4 (0.2-1.0) mg/dl Direct Bilirubin (0-0.2) mg/dl AST 23 (13-39) U/L ALT 44 (7-52) U/L Alkaline Phosphatase 64 (34-104) U/L Total Creatine Kinase (30-223) U/L C-Reactive Protein (0-0.5) mg/dl Total Protein 6.8 (6.0-8.3) gm/dl Albumin 3.8 (3.4-5.0) gm/dl Globulin 3.0 (2.5-4.0) gm/dl Albumin/Globulin Ratio 1.3 (0.9-2) Procalcitonin (0-0.5) ng/ml Urine Color Yellow Urine Appearance Slightly Cloudy A (Clear) Urine pH 8.0 H (4.5-7.5) Ur Specific [place] > 1.045 H (1.000-1.030) Urine Protein Negative (Negative) Urine Glucose (UA) Negative (Negative) Urine Ketones Negative (Negative) Urine Blood Trace H (Negative) Urine Nitrite Negative (Negative) Urine Bilirubin Negative (Negative) Urine Urobilinogen Negative (Negative) Ur Leukocyte Esterase 2+ H (Negative) Urine WBC (Auto) >30 H (0-5) /hpf Urine RBC (Auto) 0-4 (0-4) /hpf U Hyaline Cast (Auto) 1-5 (0-5) /lpf U Epithel Cells (Auto) 5-10 H (0-5) /lpf Urine Bacteria (Auto) Negative (Negative) Ur Renal Epithelial Cell Urine Mucus (None Prsent) [place] (0.6-1.2) mmol/L Arsenic (<23) mcg/L Lead (<3.5) mcg/dL Mercury (<=10) mcg/L Adenovirus (PCR) (NotDetected) B. pertussis DNA (PCR) (NotDetected) B.parapertussis DNA PCR (NotDetected) C. pneumoniae DNA (PCR) (NotDetected) Coronavirus OC43 (PCR) (NotDetected) Coronavirus HKU1 (PCR) (NotDetected) Coronavirus 229E (PCR) (NotDetected) SARS-CoV-2 (PCR) (Negative) Coronavirus NL63 (PCR) (NotDetected) Human Metapneumovir PCR (NotDetected) Influenza Type A (PCR) (NotDetected) Influenza Type B (PCR) (NotDetected) M. pneumoniae (PCR) (NotDetected) Parainfluenza 1 (PCR) (NotDetected) Parainfluenza 2 (PCR) (NotDetected) Parainfluenza 3 (PCR) (NotDetected) Parainfluenza 4 (PCR) (NotDetected) RSV (PCR) (NotDetected) Entero/Rhino (PCR) (NotDetected) SARS-CoV-2, RNA, NAAT (NEGATIVE) 03/27/22 03/27/22 03/28/22 Range/Units 06:12 06:12 05:51 WBC 5.12 10.89 H (4.8-10.8) K/ul RBC 4.54 L 4.67 (4.63-6.08) M/uL Hgb 11.0 L 11.3 L (14.0-18.0) g/dl Hct 35.9 L 36.0 L (40.1-51.0) % MCV 79.1 L 77.1 L (80.0-100.0) fL MCH 24.2 L 24.2 L (25.0-34.0) pg MCHC 30.6 L 31.4 L (32.0-36.0) g/dL RDW Std Deviation 41.7 38.5 (36.4-46.3) fL RDW Coeff of Bassem 14.5 13.8 (11.5-14.5) % Plt Count 208 213 (130-400) K/uL MPV 11.0 10.6 (9.4-12.4) fL Immature Gran % (Auto) 0.2 0.3 % Neut % (Auto) 52.1 76.5 % Lymph % (Auto) 35.9 13.8 % [place] % (Auto) 9.6 9.2 % Eos % (Auto) 1.8 0.0 % Baso % (Auto) 0.4 0.2 % Neut # (Auto) 2.67 8.34 H (1.4-6.5) K/uL Lymph # (Auto) 1.84 1.50 (1.2-3.4) K/uL [place] # (Auto) 0.49 1.00 H (0.24-0.82) K/uL Eos # (Auto) 0.09 0.00 (0-0.50) K/uL Baso # (Auto) 0.02 0.02 (0-0.2) K/uL Immature Gran # (Auto) 0.01 0.03 H (0.00-0.02) K/uL Ovalocytes ESR (0-15) mm/hr PT (9.0-12.0) Seconds INR (0.9-1.1) APTT (21.0-31.0) Seconds PTT Ratio Sodium 141 (136-145) mmol/L Potassium 3.6 (3.5-5.1) mmol/L Chloride 106 (98-107) mmol/L Carbon Dioxide 29 (21-32) mmol/L Anion Gap 6 (3-11) BUN 10 (6-23) mg/dl Creatinine 1.29 (0.6-1.4) mg/dl Est Cr Clr Drug Dosing 101.5 ml/min Est GFR ( Amer) 90.6 ml/min Est GFR (Non-Af Amer) 78.2 ml/min BUN/Creatinine Ratio 7.8 L (10-20) Glucose 80 (70-99(Fasting)) mg/dl POC Glucose (70-99) mg/dl Calcium 8.8 (8.5-10.1) mg/dl Phosphorus (2.5-4.9) mg/dl Magnesium 1.9 (1.7-2.4) mg/dl Iron (35-175) mcg/dl TIBC (250-450) mcg/dl Unsaturated IBC (155-355) mcg/dl Transferrin % Sat (20-50) % Ferritin (8-388) ng/ml Total Bilirubin 0.3 (0.2-1.0) mg/dl Direct Bilirubin (0-0.2) mg/dl AST 17 (13-39) U/L ALT 34 (7-52) U/L Alkaline Phosphatase 58 (34-104) U/L Total Creatine Kinase (30-223) U/L C-Reactive Protein (0-0.5) mg/dl Total Protein 6.9 (6.0-8.3) gm/dl Albumin 3.7 (3.4-5.0) gm/dl Globulin 3.2 (2.5-4.0) gm/dl Albumin/Globulin Ratio 1.2 (0.9-2) Procalcitonin (0-0.5) ng/ml Urine Color Urine Appearance (Clear) Urine pH (4.5-7.5) Ur Specific [place] (1.000-1.030) Urine Protein (Negative) Urine Glucose (UA) (Negative) Urine Ketones (Negative) Urine Blood (Negative) Urine Nitrite (Negative) Urine Bilirubin (Negative) Urine Urobilinogen (Negative) Ur Leukocyte Esterase (Negative) Urine WBC (Auto) (0-5) /hpf Urine RBC (Auto) (0-4) /hpf U Hyaline Cast (Auto) (0-5) /lpf U Epithel Cells (Auto) (0-5) /lpf Urine Bacteria (Auto) (Negative) Ur Renal Epithelial Cell Urine Mucus (None Prsent) [place] (0.6-1.2) mmol/L Arsenic (<23) mcg/L Lead (<3.5) mcg/dL Mercury (<=10) mcg/L Adenovirus (PCR) (NotDetected) B. pertussis DNA (PCR) (NotDetected) B.parapertussis DNA PCR (NotDetected) C. pneumoniae DNA (PCR) (NotDetected) Coronavirus OC43 (PCR) (NotDetected) Coronavirus HKU1 (PCR) (NotDetected) Coronavirus 229E (PCR) (NotDetected) SARS-CoV-2 (PCR) (Negative) Coronavirus NL63 (PCR) (NotDetected) Human Metapneumovir PCR (NotDetected) Influenza Type A (PCR) (NotDetected) Influenza Type B (PCR) (NotDetected) M. pneumoniae (PCR) (NotDetected) Parainfluenza 1 (PCR) (NotDetected) Parainfluenza 2 (PCR) (NotDetected) Parainfluenza 3 (PCR) (NotDetected) Parainfluenza 4 (PCR) (NotDetected) RSV (PCR) (NotDetected) Entero/Rhino (PCR) (NotDetected) SARS-CoV-2, RNA, NAAT (NEGATIVE) 03/28/22 03/29/22 03/29/22 Range/Units 05:51 06:28 06:28 WBC 7.67 (4.8-10.8) K/ul RBC 4.63 (4.63-6.08) M/uL Hgb 11.2 L (14.0-18.0) g/dl Hct 35.8 L (40.1-51.0) % MCV 77.3 L (80.0-100.0) fL MCH 24.2 L (25.0-34.0) pg MCHC 31.3 L (32.0-36.0) g/dL RDW Std Deviation 38.7 (36.4-46.3) fL RDW Coeff of Bassem 13.7 (11.5-14.5) % Plt Count 205 (130-400) K/uL MPV 10.4 (9.4-12.4) fL Immature Gran % (Auto) 0.3 % Neut % (Auto) 79.0 % Lymph % (Auto) 13.2 % [place] % (Auto) 7.4 % Eos % (Auto) 0.1 % Baso % (Auto) 0.0 % Neut # (Auto) 6.06 (1.4-6.5) K/uL Lymph # (Auto) 1.01 L (1.2-3.4) K/uL [place] # (Auto) 0.57 (0.24-0.82) K/uL Eos # (Auto) 0.01 (0-0.50) K/uL Baso # (Auto) 0.00 (0-0.2) K/uL Immature Gran # (Auto) 0.02 (0.00-0.02) K/uL Ovalocytes ESR (0-15) mm/hr PT (9.0-12.0) Seconds INR (0.9-1.1) APTT (21.0-31.0) Seconds PTT Ratio Sodium 138 139 (136-145) mmol/L Potassium 3.4 L 3.7 (3.5-5.1) mmol/L Chloride 104 106 (98-107) mmol/L Carbon Dioxide 27 27 (21-32) mmol/L Anion Gap 7 6 (3-11) BUN 11 12 (6-23) mg/dl Creatinine 1.11 0.98 (0.6-1.4) mg/dl Est Cr Clr Drug Dosing 117.9 133.6 ml/min Est GFR ( Amer) 108.7 126.3 ml/min Est GFR (Non-Af Amer) 93.8 109.0 ml/min BUN/Creatinine Ratio 9.9 L 12.2 (10-20) Glucose 85 96 (70-99(Fasting)) mg/dl POC Glucose (70-99) mg/dl Calcium 8.8 8.8 (8.5-10.1) mg/dl Phosphorus (2.5-4.9) mg/dl Magnesium 2.0 (1.7-2.4) mg/dl Iron (35-175) mcg/dl TIBC (250-450) mcg/dl Unsaturated IBC (155-355) mcg/dl Transferrin % Sat (20-50) % Ferritin (8-388) ng/ml Total Bilirubin (0.2-1.0) mg/dl Direct Bilirubin (0-0.2) mg/dl AST (13-39) U/L ALT (7-52) U/L Alkaline Phosphatase (34-104) U/L Total Creatine Kinase (30-223) U/L C-Reactive Protein (0-0.5) mg/dl Total Protein (6.0-8.3) gm/dl Albumin (3.4-5.0) gm/dl Globulin (2.5-4.0) gm/dl Albumin/Globulin Ratio (0.9-2) Procalcitonin (0-0.5) ng/ml Urine Color Urine Appearance (Clear) Urine pH (4.5-7.5) Ur Specific [place] (1.000-1.030) Urine Protein (Negative) Urine Glucose (UA) (Negative) Urine Ketones (Negative) Urine Blood (Negative) Urine Nitrite (Negative) Urine Bilirubin (Negative) Urine Urobilinogen (Negative) Ur Leukocyte Esterase (Negative) Urine WBC (Auto) (0-5) /hpf Urine RBC (Auto) (0-4) /hpf U Hyaline Cast (Auto) (0-5) /lpf U Epithel Cells (Auto) (0-5) /lpf Urine Bacteria (Auto) (Negative) Ur Renal Epithelial Cell Urine Mucus (None Prsent) [place] (0.6-1.2) mmol/L Arsenic (<23) mcg/L Lead (<3.5) mcg/dL Mercury (<=10) mcg/L Adenovirus (PCR) (NotDetected) B. pertussis DNA (PCR) (NotDetected) B.parapertussis DNA PCR (NotDetected) C. pneumoniae DNA (PCR) (NotDetected) Coronavirus OC43 (PCR) (NotDetected) Coronavirus HKU1 (PCR) (NotDetected) Coronavirus 229E (PCR) (NotDetected) SARS-CoV-2 (PCR) (Negative) Coronavirus NL63 (PCR) (NotDetected) Human Metapneumovir PCR (NotDetected) Influenza Type A (PCR) (NotDetected) Influenza Type B (PCR) (NotDetected) M. pneumoniae (PCR) (NotDetected) Parainfluenza 1 (PCR) (NotDetected) Parainfluenza 2 (PCR) (NotDetected) Parainfluenza 3 (PCR) (NotDetected) Parainfluenza 4 (PCR) (NotDetected) RSV (PCR) (NotDetected) Entero/Rhino (PCR) (NotDetected) SARS-CoV-2, RNA, NAAT (NEGATIVE) 03/30/22 03/30/22 03/30/22 Range/Units 05:49 05:49 06:47 WBC 6.78 (4.8-10.8) K/ul RBC 4.28 L (4.63-6.08) M/uL Hgb 10.4 L (14.0-18.0) g/dl Hct 33.1 L (40.1-51.0) % MCV 77.3 L (80.0-100.0) fL MCH 24.3 L (25.0-34.0) pg MCHC 31.4 L (32.0-36.0) g/dL RDW Std Deviation 38.4 (36.4-46.3) fL RDW Coeff of Bassem 13.7 (11.5-14.5) % Plt Count 184 (130-400) K/uL MPV 10.4 (9.4-12.4) fL Immature Gran % (Auto) % Neut % (Auto) % Lymph % (Auto) % [place] % (Auto) % Eos % (Auto) % Baso % (Auto) % Neut # (Auto) (1.4-6.5) K/uL Lymph # (Auto) (1.2-3.4) K/uL [place] # (Auto) (0.24-0.82) K/uL Eos # (Auto) (0-0.50) K/uL Baso # (Auto) (0-0.2) K/uL Immature Gran # (Auto) (0.00-0.02) K/uL Ovalocytes ESR (0-15) mm/hr PT (9.0-12.0) Seconds INR (0.9-1.1) APTT (21.0-31.0) Seconds PTT Ratio Sodium 140 (136-145) mmol/L Potassium 3.6 (3.5-5.1) mmol/L Chloride 107 (98-107) mmol/L Carbon Dioxide 26 (21-32) mmol/L Anion Gap 7 (3-11) BUN 11 (6-23) mg/dl Creatinine 1.12 (0.6-1.4) mg/dl Est Cr Clr Drug Dosing 116.9 ml/min Est GFR ( Amer) 107.5 ml/min Est GFR (Non-Af Amer) 92.7 ml/min BUN/Creatinine Ratio 9.8 L (10-20) Glucose 88 (70-99(Fasting)) mg/dl POC Glucose (70-99) mg/dl Calcium 8.6 (8.5-10.1) mg/dl Phosphorus (2.5-4.9) mg/dl Magnesium (1.7-2.4) mg/dl Iron 47 (35-175) mcg/dl TIBC 255 (250-450) mcg/dl Unsaturated IBC 208 (155-355) mcg/dl Transferrin % Sat 18 L (20-50) % Ferritin 69.7 (8-388) ng/ml Total Bilirubin (0.2-1.0) mg/dl Direct Bilirubin (0-0.2) mg/dl AST (13-39) U/L ALT (7-52) U/L Alkaline Phosphatase (34-104) U/L Total Creatine Kinase (30-223) U/L C-Reactive Protein (0-0.5) mg/dl Total Protein (6.0-8.3) gm/dl Albumin (3.4-5.0) gm/dl Globulin (2.5-4.0) gm/dl Albumin/Globulin Ratio (0.9-2) Procalcitonin (0-0.5) ng/ml Urine Color Urine Appearance (Clear) Urine pH (4.5-7.5) Ur Specific [place] (1.000-1.030) Urine Protein (Negative) Urine Glucose (UA) (Negative) Urine Ketones (Negative) Urine Blood (Negative) Urine Nitrite (Negative) Urine Bilirubin (Negative) Urine Urobilinogen (Negative) Ur Leukocyte Esterase (Negative) Urine WBC (Auto) (0-5) /hpf Urine RBC (Auto) (0-4) /hpf U Hyaline Cast (Auto) (0-5) /lpf U Epithel Cells (Auto) (0-5) /lpf Urine Bacteria (Auto) (Negative) Ur Renal Epithelial Cell Urine Mucus (None Prsent) [place] 0.4 L (0.6-1.2) mmol/L [place] (<23) mcg/L Lead (<3.5) mcg/dL Mercury (<=10) mcg/L Adenovirus (PCR) (NotDetected) B. pertussis DNA (PCR) (NotDetected) B.parapertussis DNA PCR (NotDetected) C. pneumoniae DNA (PCR) (NotDetected) Coronavirus OC43 (PCR) (NotDetected) Coronavirus HKU1 (PCR) (NotDetected) Coronavirus 229E (PCR) (NotDetected) SARS-CoV-2 (PCR) (Negative) Coronavirus NL63 (PCR) (NotDetected) Human Metapneumovir PCR (NotDetected) Influenza Type A (PCR) (NotDetected) Influenza Type B (PCR) (NotDetected) M. pneumoniae (PCR) (NotDetected) Parainfluenza 1 (PCR) (NotDetected) Parainfluenza 2 (PCR) (NotDetected) Parainfluenza 3 (PCR) (NotDetected) Parainfluenza 4 (PCR) (NotDetected) RSV (PCR) (NotDetected) Entero/Rhino (PCR) (NotDetected) SARS-CoV-2, RNA, NAAT (NEGATIVE) 03/31/22 03/31/22 04/01/22 Range/Units 08:00 08:00 06:32 WBC 5.06 (4.8-10.8) K/ul RBC 4.52 L (4.63-6.08) M/uL Hgb 11.0 L (14.0-18.0) g/dl Hct 35.1 L (40.1-51.0) % MCV 77.7 L (80.0-100.0) fL MCH 24.3 L (25.0-34.0) pg MCHC 31.3 L (32.0-36.0) g/dL RDW Std Deviation 37.8 (36.4-46.3) fL RDW Coeff of Bassem 13.4 (11.5-14.5) % Plt Count 220 (130-400) K/uL MPV 10.0 (9.4-12.4) fL Immature Gran % (Auto) % Neut % (Auto) % Lymph % (Auto) % [place] % (Auto) % Eos % (Auto) % Baso % (Auto) % Neut # (Auto) (1.4-6.5) K/uL Lymph # (Auto) (1.2-3.4) K/uL [place] # (Auto) (0.24-0.82) K/uL Eos # (Auto) (0-0.50) K/uL Baso # (Auto) (0-0.2) K/uL Immature Gran # (Auto) (0.00-0.02) K/uL Ovalocytes ESR (0-15) mm/hr PT (9.0-12.0) Seconds INR (0.9-1.1) APTT (21.0-31.0) Seconds PTT Ratio Sodium 138 (136-145) mmol/L Potassium 3.4 L (3.5-5.1) mmol/L Chloride 103 (98-107) mmol/L Carbon Dioxide 32 (21-32) mmol/L Anion Gap 3 (3-11) BUN 8 (6-23) mg/dl Creatinine 1.09 (0.6-1.4) mg/dl Est Cr Clr Drug Dosing 120.1 ml/min Est GFR ( Amer) 111.1 ml/min Est GFR (Non-Af Amer) 95.8 ml/min BUN/Creatinine Ratio 7.3 L (10-20) Glucose 97 (70-99(Fasting)) mg/dl POC Glucose (70-99) mg/dl Calcium 9.0 (8.5-10.1) mg/dl Phosphorus (2.5-4.9) mg/dl Magnesium (1.7-2.4) mg/dl Iron (35-175) mcg/dl TIBC (250-450) mcg/dl Unsaturated IBC (155-355) mcg/dl Transferrin % Sat (20-50) % Ferritin (8-388) ng/ml Total Bilirubin (0.2-1.0) mg/dl Direct Bilirubin (0-0.2) mg/dl AST (13-39) U/L ALT (7-52) U/L Alkaline Phosphatase (34-104) U/L Total Creatine Kinase (30-223) U/L C-Reactive Protein (0-0.5) mg/dl Total Protein (6.0-8.3) gm/dl Albumin (3.4-5.0) gm/dl Globulin (2.5-4.0) gm/dl Albumin/Globulin Ratio (0.9-2) Procalcitonin (0-0.5) ng/ml Urine Color Urine Appearance (Clear) Urine pH (4.5-7.5) Ur Specific [place] (1.000-1.030) Urine Protein (Negative) Urine Glucose (UA) (Negative) Urine Ketones (Negative) Urine Blood (Negative) Urine Nitrite (Negative) Urine Bilirubin (Negative) Urine Urobilinogen (Negative) Ur Leukocyte Esterase (Negative) Urine WBC (Auto) (0-5) /hpf Urine RBC (Auto) (0-4) /hpf U Hyaline Cast (Auto) (0-5) /lpf U Epithel Cells (Auto) (0-5) /lpf Urine Bacteria (Auto) (Negative) Ur Renal Epithelial Cell Urine Mucus (None Prsent) [place] (0.6-1.2) mmol/L Arsenic <3 (<23) mcg/L Lead <1.0 (<3.5) mcg/dL Mercury <4 (<=10) mcg/L Adenovirus (PCR) (NotDetected) B. pertussis DNA (PCR) (NotDetected) B.parapertussis DNA PCR (NotDetected) C. pneumoniae DNA (PCR) (NotDetected) Coronavirus OC43 (PCR) (NotDetected) Coronavirus HKU1 (PCR) (NotDetected) Coronavirus 229E (PCR) (NotDetected) SARS-CoV-2 (PCR) (Negative) Coronavirus NL63 (PCR) (NotDetected) Human Metapneumovir PCR (NotDetected) Influenza Type A (PCR) (NotDetected) Influenza Type B (PCR) (NotDetected) M. pneumoniae (PCR) (NotDetected) Parainfluenza 1 (PCR) (NotDetected) Parainfluenza 2 (PCR) (NotDetected) Parainfluenza 3 (PCR) (NotDetected) Parainfluenza 4 (PCR) (NotDetected) RSV (PCR) (NotDetected) Entero/Rhino (PCR) (NotDetected) SARS-CoV-2, RNA, NAAT (NEGATIVE) 04/01/22 04/02/22 04/02/22 Range/Units 06:32 05:59 05:59 WBC 4.04 L (4.8-10.8) K/ul RBC 5.13 (4.63-6.08) M/uL Hgb 12.4 L (14.0-18.0) g/dl Hct 39.8 L (40.1-51.0) % MCV 77.6 L (80.0-100.0) fL MCH 24.2 L (25.0-34.0) pg MCHC 31.2 L (32.0-36.0) g/dL RDW Std Deviation 38.2 (36.4-46.3) fL RDW Coeff of Bassem 13.5 (11.5-14.5) % Plt Count 252 (130-400) K/uL MPV 10.5 (9.4-12.4) fL Immature Gran % (Auto) 0.2 % Neut % (Auto) 59.2 % Lymph % (Auto) 24.8 % [place] % (Auto) 10.9 % Eos % (Auto) 4.7 % Baso % (Auto) 0.2 % Neut # (Auto) 2.39 (1.4-6.5) K/uL Lymph # (Auto) 1.00 L (1.2-3.4) K/uL [place] # (Auto) 0.44 (0.24-0.82) K/uL Eos # (Auto) 0.19 (0-0.50) K/uL Baso # (Auto) 0.01 (0-0.2) K/uL Immature Gran # (Auto) 0.01 (0.00-0.02) K/uL Ovalocytes ESR (0-15) mm/hr PT (9.0-12.0) Seconds INR (0.9-1.1) APTT (21.0-31.0) Seconds PTT Ratio Sodium 138 139 (136-145) mmol/L Potassium 3.7 3.9 (3.5-5.1) mmol/L Chloride 104 103 (98-107) mmol/L Carbon Dioxide 30 30 (21-32) mmol/L Anion Gap 4 6 (3-11) BUN 7 6 (6-23) mg/dl Creatinine 1.11 1.22 (0.6-1.4) mg/dl Est Cr Clr Drug Dosing 117.9 107.3 ml/min Est GFR ( Amer) 108.7 96.9 ml/min Est GFR (Non-Af Amer) 93.8 83.6 ml/min BUN/Creatinine Ratio 6.3 L 4.9 L (10-20) Glucose 94 96 (70-99(Fasting)) mg/dl POC Glucose (70-99) mg/dl Calcium 9.1 9.6 (8.5-10.1) mg/dl Phosphorus (2.5-4.9) mg/dl Magnesium 1.7 1.9 (1.7-2.4) mg/dl Iron (35-175) mcg/dl TIBC (250-450) mcg/dl Unsaturated IBC (155-355) mcg/dl Transferrin % Sat (20-50) % Ferritin (8-388) ng/ml Total Bilirubin 0.2 (0.2-1.0) mg/dl Direct Bilirubin (0-0.2) mg/dl AST 16 (13-39) U/L ALT 17 (7-52) U/L Alkaline Phosphatase 60 (34-104) U/L Total Creatine Kinase (30-223) U/L C-Reactive Protein (0-0.5) mg/dl Total Protein 7.4 (6.0-8.3) gm/dl Albumin 4.1 (3.4-5.0) gm/dl Globulin 3.3 (2.5-4.0) gm/dl Albumin/Globulin Ratio 1.2 (0.9-2) Procalcitonin (0-0.5) ng/ml Urine Color Urine Appearance (Clear) Urine pH (4.5-7.5) Ur Specific [place] (1.000-1.030) Urine Protein (Negative) Urine Glucose (UA) (Negative) Urine Ketones (Negative) Urine Blood (Negative) Urine Nitrite (Negative) Urine Bilirubin (Negative) Urine Urobilinogen (Negative) Ur Leukocyte Esterase (Negative) Urine WBC (Auto) (0-5) /hpf Urine RBC (Auto) (0-4) /hpf U Hyaline Cast (Auto) (0-5) /lpf U Epithel Cells (Auto) (0-5) /lpf Urine Bacteria (Auto) (Negative) Ur Renal Epithelial Cell Urine Mucus (None Prsent) [place] (0.6-1.2) mmol/L Arsenic (<23) mcg/L Lead (<3.5) mcg/dL Mercury (<=10) mcg/L Adenovirus (PCR) (NotDetected) B. pertussis DNA (PCR) (NotDetected) B.parapertussis DNA PCR (NotDetected) C. pneumoniae DNA (PCR) (NotDetected) Coronavirus OC43 (PCR) (NotDetected) Coronavirus HKU1 (PCR) (NotDetected) Coronavirus 229E (PCR) (NotDetected) SARS-CoV-2 (PCR) (Negative) Coronavirus NL63 (PCR) (NotDetected) Human Metapneumovir PCR (NotDetected) Influenza Type A (PCR) (NotDetected) Influenza Type B (PCR) (NotDetected) M. pneumoniae (PCR) (NotDetected) Parainfluenza 1 (PCR) (NotDetected) Parainfluenza 2 (PCR) (NotDetected) Parainfluenza 3 (PCR) (NotDetected) Parainfluenza 4 (PCR) (NotDetected) RSV (PCR) (NotDetected) Entero/Rhino (PCR) (NotDetected) SARS-CoV-2, RNA, NAAT (NEGATIVE) 04/02/22 04/03/22 04/03/22 Range/Units 21:43 05:49 05:49 WBC 5.85 (4.8-10.8) K/ul RBC 5.33 (4.63-6.08) M/uL Hgb 13.0 L (14.0-18.0) g/dl Hct 41.6 (40.1-51.0) % MCV 78.0 L (80.0-100.0) fL MCH 24.4 L (25.0-34.0) pg MCHC 31.3 L (32.0-36.0) g/dL RDW Std Deviation 38.2 (36.4-46.3) fL RDW Coeff of Bassem 13.4 (11.5-14.5) % Plt Count 257 (130-400) K/uL MPV 9.8 (9.4-12.4) fL Immature Gran % (Auto) 0.2 % Neut % (Auto) 66.6 % Lymph % (Auto) 20.0 % [place] % (Auto) 9.4 % Eos % (Auto) 3.6 % Baso % (Auto) 0.2 % Neut # (Auto) 3.90 (1.4-6.5) K/uL Lymph # (Auto) 1.17 L (1.2-3.4) K/uL [place] # (Auto) 0.55 (0.24-0.82) K/uL Eos # (Auto) 0.21 (0-0.50) K/uL Baso # (Auto) 0.01 (0-0.2) K/uL Immature Gran # (Auto) 0.01 (0.00-0.02) K/uL Ovalocytes ESR (0-15) mm/hr PT (9.0-12.0) Seconds INR (0.9-1.1) APTT (21.0-31.0) Seconds PTT Ratio Sodium 138 (136-145) mmol/L Potassium 4.0 (3.5-5.1) mmol/L Chloride 103 (98-107) mmol/L Carbon Dioxide 30 (21-32) mmol/L Anion Gap 5 (3-11) BUN 12 (6-23) mg/dl Creatinine 1.28 (0.6-1.4) mg/dl Est Cr Clr Drug Dosing 93.5 ml/min Est GFR ( Amer) 91.5 ml/min Est GFR (Non-Af Amer) 78.9 ml/min BUN/Creatinine Ratio 9.4 L (10-20) Glucose 95 (70-99(Fasting)) mg/dl POC Glucose 98 (70-99) mg/dl Calcium 9.7 (8.5-10.1) mg/dl Phosphorus (2.5-4.9) mg/dl Magnesium 1.9 (1.7-2.4) mg/dl Iron (35-175) mcg/dl TIBC (250-450) mcg/dl Unsaturated IBC (155-355) mcg/dl Transferrin % Sat (20-50) % Ferritin (8-388) ng/ml Total Bilirubin (0.2-1.0) mg/dl Direct Bilirubin (0-0.2) mg/dl AST (13-39) U/L ALT (7-52) U/L Alkaline Phosphatase (34-104) U/L Total Creatine Kinase (30-223) U/L C-Reactive Protein (0-0.5) mg/dl Total Protein (6.0-8.3) gm/dl Albumin (3.4-5.0) gm/dl Globulin (2.5-4.0) gm/dl Albumin/Globulin Ratio (0.9-2) Procalcitonin (0-0.5) ng/ml Urine Color Urine Appearance (Clear) Urine pH (4.5-7.5) Ur Specific [place] (1.000-1.030) Urine Protein (Negative) Urine Glucose (UA) (Negative) Urine Ketones (Negative) Urine Blood (Negative) Urine Nitrite (Negative) Urine Bilirubin (Negative) Urine Urobilinogen (Negative) Ur Leukocyte Esterase (Negative) Urine WBC (Auto) (0-5) /hpf Urine RBC (Auto) (0-4) /hpf U Hyaline Cast (Auto) (0-5) /lpf U Epithel Cells (Auto) (0-5) /lpf Urine Bacteria (Auto) (Negative) Ur Renal Epithelial Cell Urine Mucus (None Prsent) [place] (0.6-1.2) mmol/L Arsenic (<23) mcg/L Lead (<3.5) mcg/dL Mercury (<=10) mcg/L Adenovirus (PCR) (NotDetected) B. pertussis DNA (PCR) (NotDetected) B.parapertussis DNA PCR (NotDetected) C. pneumoniae DNA (PCR) (NotDetected) Coronavirus OC43 (PCR) (NotDetected) Coronavirus HKU1 (PCR) (NotDetected) Coronavirus 229E (PCR) (NotDetected) SARS-CoV-2 (PCR) (Negative) Coronavirus NL63 (PCR) (NotDetected) Human Metapneumovir PCR (NotDetected) Influenza Type A (PCR) (NotDetected) Influenza Type B (PCR) (NotDetected) M. pneumoniae (PCR) (NotDetected) Parainfluenza 1 (PCR) (NotDetected) Parainfluenza 2 (PCR) (NotDetected) Parainfluenza 3 (PCR) (NotDetected) Parainfluenza 4 (PCR) (NotDetected) RSV (PCR) (NotDetected) Entero/Rhino (PCR) (NotDetected) SARS-CoV-2, RNA, NAAT (NEGATIVE) 04/03/22 04/03/22 04/04/22 Range/Units 11:47 23:52 04:11 WBC 5.83 (4.8-10.8) K/ul RBC 4.87 (4.63-6.08) M/uL Hgb 11.8 L (14.0-18.0) g/dl Hct 36.9 L (40.1-51.0) % MCV 75.8 L (80.0-100.0) fL MCH 24.2 L (25.0-34.0) pg MCHC 32.0 (32.0-36.0) g/dL RDW Std Deviation 35.9 L (36.4-46.3) fL RDW Coeff of Bassem 13.2 (11.5-14.5) % Plt Count 253 (130-400) K/uL MPV 10.0 (9.4-12.4) fL Immature Gran % (Auto) 0.3 % Neut % (Auto) 63.5 % Lymph % (Auto) 23.3 % [place] % (Auto) 10.1 % Eos % (Auto) 2.6 % Baso % (Auto) 0.2 % Neut # (Auto) 3.70 (1.4-6.5) K/uL Lymph # (Auto) 1.36 (1.2-3.4) K/uL [place] # (Auto) 0.59 (0.24-0.82) K/uL Eos # (Auto) 0.15 (0-0.50) K/uL Baso # (Auto) 0.01 (0-0.2) K/uL Immature Gran # (Auto) 0.02 (0.00-0.02) K/uL Ovalocytes ESR (0-15) mm/hr PT (9.0-12.0) Seconds INR (0.9-1.1) APTT (21.0-31.0) Seconds PTT Ratio Sodium (136-145) mmol/L Potassium (3.5-5.1) mmol/L Chloride (98-107) mmol/L Carbon Dioxide (21-32) mmol/L Anion Gap (3-11) BUN (6-23) mg/dl Creatinine (0.6-1.4) mg/dl Est Cr Clr Drug Dosing ml/min Est GFR ( Amer) ml/min Est GFR (Non-Af Amer) ml/min BUN/Creatinine Ratio (10-20) Glucose (70-99(Fasting)) mg/dl POC Glucose 82 84 (70-99) mg/dl Calcium (8.5-10.1) mg/dl Phosphorus (2.5-4.9) mg/dl Magnesium (1.7-2.4) mg/dl Iron (35-175) mcg/dl TIBC (250-450) mcg/dl Unsaturated IBC (155-355) mcg/dl Transferrin % Sat (20-50) % Ferritin (8-388) ng/ml Total Bilirubin (0.2-1.0) mg/dl Direct Bilirubin (0-0.2) mg/dl AST (13-39) U/L ALT (7-52) U/L Alkaline Phosphatase (34-104) U/L Total Creatine Kinase (30-223) U/L C-Reactive Protein (0-0.5) mg/dl Total Protein (6.0-8.3) gm/dl Albumin (3.4-5.0) gm/dl Globulin (2.5-4.0) gm/dl Albumin/Globulin Ratio (0.9-2) Procalcitonin (0-0.5) ng/ml Urine Color Urine Appearance (Clear) Urine pH (4.5-7.5) Ur Specific [place] (1.000-1.030) Urine Protein (Negative) Urine Glucose (UA) (Negative) Urine Ketones (Negative) Urine Blood (Negative) Urine Nitrite (Negative) Urine Bilirubin (Negative) Urine Urobilinogen (Negative) Ur Leukocyte Esterase (Negative) Urine WBC (Auto) (0-5) /hpf Urine RBC (Auto) (0-4) /hpf U Hyaline Cast (Auto) (0-5) /lpf U Epithel Cells (Auto) (0-5) /lpf Urine Bacteria (Auto) (Negative) Ur Renal Epithelial Cell Urine Mucus (None Prsent) [place] (0.6-1.2) mmol/L Arsenic (<23) mcg/L Lead (<3.5) mcg/dL Mercury (<=10) mcg/L Adenovirus (PCR) (NotDetected) B. pertussis DNA (PCR) (NotDetected) B.parapertussis DNA PCR (NotDetected) C. pneumoniae DNA (PCR) (NotDetected) Coronavirus OC43 (PCR) (NotDetected) Coronavirus HKU1 (PCR) (NotDetected) Coronavirus 229E (PCR) (NotDetected) SARS-CoV-2 (PCR) (Negative) Coronavirus NL63 (PCR) (NotDetected) Human Metapneumovir PCR (NotDetected) Influenza Type A (PCR) (NotDetected) Influenza Type B (PCR) (NotDetected) M. pneumoniae (PCR) (NotDetected) Parainfluenza 1 (PCR) (NotDetected) Parainfluenza 2 (PCR) (NotDetected) Parainfluenza 3 (PCR) (NotDetected) Parainfluenza 4 (PCR) (NotDetected) RSV (PCR) (NotDetected) Entero/Rhino (PCR) (NotDetected) SARS-CoV-2, RNA, NAAT (NEGATIVE) 04/04/22 04/04/22 04/04/22 Range/Units 04:11 04:11 12:13 WBC (4.8-10.8) K/ul RBC (4.63-6.08) M/uL Hgb (14.0-18.0) g/dl Hct (40.1-51.0) % MCV (80.0-100.0) fL MCH (25.0-34.0) pg MCHC (32.0-36.0) g/dL RDW Std Deviation (36.4-46.3) fL RDW Coeff of Bassem (11.5-14.5) % Plt Count (130-400) K/uL MPV (9.4-12.4) fL Immature Gran % (Auto) % Neut % (Auto) % Lymph % (Auto) % [place] % (Auto) % Eos % (Auto) % Baso % (Auto) % Neut # (Auto) (1.4-6.5) K/uL Lymph # (Auto) (1.2-3.4) K/uL [place] # (Auto) (0.24-0.82) K/uL Eos # (Auto) (0-0.50) K/uL Baso # (Auto) (0-0.2) K/uL Immature Gran # (Auto) (0.00-0.02) K/uL Ovalocytes ESR (0-15) mm/hr PT (9.0-12.0) Seconds INR (0.9-1.1) APTT (21.0-31.0) Seconds PTT Ratio Sodium 138 (136-145) mmol/L Potassium 3.8 (3.5-5.1) mmol/L Chloride 102 (98-107) mmol/L Carbon Dioxide 28 (21-32) mmol/L Anion Gap 8 (3-11) BUN 14 (6-23) mg/dl Creatinine 1.31 (0.6-1.4) mg/dl Est Cr Clr Drug Dosing 91.3 ml/min Est GFR ( Amer) 88.9 ml/min Est GFR (Non-Af Amer) 76.7 ml/min BUN/Creatinine Ratio 10.7 (10-20) Glucose 79 (70-99(Fasting)) mg/dl POC Glucose 104 H (70-99) mg/dl Calcium 9.5 (8.5-10.1) mg/dl Phosphorus 4.9 (2.5-4.9) mg/dl Magnesium 1.6 L (1.7-2.4) mg/dl Iron (35-175) mcg/dl TIBC (250-450) mcg/dl Unsaturated IBC (155-355) mcg/dl Transferrin % Sat (20-50) % Ferritin (8-388) ng/ml Total Bilirubin 0.4 (0.2-1.0) mg/dl Direct Bilirubin (0-0.2) mg/dl AST 29 (13-39) U/L ALT 25 (7-52) U/L Alkaline Phosphatase 58 (34-104) U/L Total Creatine Kinase (30-223) U/L C-Reactive Protein (0-0.5) mg/dl Total Protein 7.2 (6.0-8.3) gm/dl Albumin 3.8 (3.4-5.0) gm/dl Globulin 3.4 (2.5-4.0) gm/dl Albumin/Globulin Ratio 1.1 (0.9-2) Procalcitonin (0-0.5) ng/ml Urine Color Urine Appearance (Clear) Urine pH (4.5-7.5) Ur Specific [place] (1.000-1.030) Urine Protein (Negative) Urine Glucose (UA) (Negative) Urine Ketones (Negative) Urine Blood (Negative) Urine Nitrite (Negative) Urine Bilirubin (Negative) Urine Urobilinogen (Negative) Ur Leukocyte Esterase (Negative) Urine WBC (Auto) (0-5) /hpf Urine RBC (Auto) (0-4) /hpf U Hyaline Cast (Auto) (0-5) /lpf U Epithel Cells (Auto) (0-5) /lpf Urine Bacteria (Auto) (Negative) Ur Renal Epithelial Cell Urine Mucus (None Prsent) [place] (0.6-1.2) mmol/L Arsenic (<23) mcg/L Lead (<3.5) mcg/dL Mercury (<=10) mcg/L Adenovirus (PCR) (NotDetected) B. pertussis DNA (PCR) (NotDetected) B.parapertussis DNA PCR (NotDetected) C. pneumoniae DNA (PCR) (NotDetected) Coronavirus OC43 (PCR) (NotDetected) Coronavirus HKU1 (PCR) (NotDetected) Coronavirus 229E (PCR) (NotDetected) SARS-CoV-2 (PCR) (Negative) Coronavirus NL63 (PCR) (NotDetected) Human Metapneumovir PCR (NotDetected) Influenza Type A (PCR) (NotDetected) Influenza Type B (PCR) (NotDetected) M. pneumoniae (PCR) (NotDetected) Parainfluenza 1 (PCR) (NotDetected) Parainfluenza 2 (PCR) (NotDetected) Parainfluenza 3 (PCR) (NotDetected) Parainfluenza 4 (PCR) (NotDetected) RSV (PCR) (NotDetected) Entero/Rhino (PCR) (NotDetected) SARS-CoV-2, RNA, NAAT (NEGATIVE) 04/05/22 04/05/22 04/08/22 Range/Units 07:02 07:02 06:54 WBC 5.45 14.10 H (4.8-10.8) K/ul RBC 5.21 5.00 (4.63-6.08) M/uL Hgb 12.6 L 12.2 L (14.0-18.0) g/dl Hct 39.8 L 37.8 L (40.1-51.0) % MCV 76.4 L 75.6 L (80.0-100.0) fL MCH 24.2 L 24.4 L (25.0-34.0) pg MCHC 31.7 L 32.3 (32.0-36.0) g/dL RDW Std Deviation 36.1 L 35.6 L (36.4-46.3) fL RDW Coeff of Bassem 13.1 13.2 (11.5-14.5) % Plt Count 274 274 (130-400) K/uL MPV 10.2 10.3 (9.4-12.4) fL Immature Gran % (Auto) 0.2 0.3 % Neut % (Auto) 65.3 82.8 % Lymph % (Auto) 23.3 9.4 % [place] % (Auto) 7.9 7.2 % Eos % (Auto) 2.9 0.1 % Baso % (Auto) 0.4 0.2 % Neut # (Auto) 3.56 11.67 H (1.4-6.5) K/uL Lymph # (Auto) 1.27 1.33 (1.2-3.4) K/uL [place] # (Auto) 0.43 1.02 H (0.24-0.82) K/uL Eos # (Auto) 0.16 0.01 (0-0.50) K/uL Baso # (Auto) 0.02 0.03 (0-0.2) K/uL Immature Gran # (Auto) 0.01 0.04 H (0.00-0.02) K/uL Ovalocytes ESR (0-15) mm/hr PT (9.0-12.0) Seconds INR (0.9-1.1) APTT (21.0-31.0) Seconds PTT Ratio Sodium 136 (136-145) mmol/L Potassium 4.0 (3.5-5.1) mmol/L Chloride 102 (98-107) mmol/L Carbon Dioxide 27 (21-32) mmol/L Anion Gap 7 (3-11) BUN 13 (6-23) mg/dl Creatinine 1.16 (0.6-1.4) mg/dl Est Cr Clr Drug Dosing 103.1 ml/min Est GFR ( Amer) 103.0 ml/min Est GFR (Non-Af Amer) 88.9 ml/min BUN/Creatinine Ratio 11.2 (10-20) Glucose 91 (70-99(Fasting)) mg/dl POC Glucose (70-99) mg/dl Calcium 9.6 (8.5-10.1) mg/dl Phosphorus (2.5-4.9) mg/dl Magnesium (1.7-2.4) mg/dl Iron (35-175) mcg/dl TIBC (250-450) mcg/dl Unsaturated IBC (155-355) mcg/dl Transferrin % Sat (20-50) % Ferritin (8-388) ng/ml Total Bilirubin 0.4 (0.2-1.0) mg/dl Direct Bilirubin (0-0.2) mg/dl AST 24 (13-39) U/L ALT 21 (7-52) U/L Alkaline Phosphatase 59 (34-104) U/L Total Creatine Kinase (30-223) U/L C-Reactive Protein (0-0.5) mg/dl Total Protein 7.2 (6.0-8.3) gm/dl Albumin 4.2 (3.4-5.0) gm/dl Globulin 3.0 (2.5-4.0) gm/dl Albumin/Globulin Ratio 1.4 (0.9-2) Procalcitonin (0-0.5) ng/ml Urine Color Urine Appearance (Clear) Urine pH (4.5-7.5) Ur Specific [place] (1.000-1.030) Urine Protein (Negative) Urine Glucose (UA) (Negative) Urine Ketones (Negative) Urine Blood (Negative) Urine Nitrite (Negative) Urine Bilirubin (Negative) Urine Urobilinogen (Negative) Ur Leukocyte Esterase (Negative) Urine WBC (Auto) (0-5) /hpf Urine RBC (Auto) (0-4) /hpf U Hyaline Cast (Auto) (0-5) /lpf U Epithel Cells (Auto) (0-5) /lpf Urine Bacteria (Auto) (Negative) Ur Renal Epithelial Cell Urine Mucus (None Prsent) [place] (0.6-1.2) mmol/L Arsenic (<23) mcg/L Lead (<3.5) mcg/dL Mercury (<=10) mcg/L Adenovirus (PCR) (NotDetected) B. pertussis DNA (PCR) (NotDetected) B.parapertussis DNA PCR (NotDetected) C. pneumoniae DNA (PCR) (NotDetected) Coronavirus OC43 (PCR) (NotDetected) Coronavirus HKU1 (PCR) (NotDetected) Coronavirus 229E (PCR) (NotDetected) SARS-CoV-2 (PCR) (Negative) Coronavirus NL63 (PCR) (NotDetected) Human Metapneumovir PCR (NotDetected) Influenza Type A (PCR) (NotDetected) Influenza Type B (PCR) (NotDetected) M. pneumoniae (PCR) (NotDetected) Parainfluenza 1 (PCR) (NotDetected) Parainfluenza 2 (PCR) (NotDetected) Parainfluenza 3 (PCR) (NotDetected) Parainfluenza 4 (PCR) (NotDetected) RSV (PCR) (NotDetected) Entero/Rhino (PCR) (NotDetected) SARS-CoV-2, RNA, NAAT (NEGATIVE) 04/08/22 04/08/22 04/08/22 Range/Units 06:54 20:20 23:55 WBC (4.8-10.8) K/ul RBC (4.63-6.08) M/uL Hgb (14.0-18.0) g/dl Hct (40.1-51.0) % MCV (80.0-100.0) fL MCH (25.0-34.0) pg MCHC (32.0-36.0) g/dL RDW Std Deviation (36.4-46.3) fL RDW Coeff of Bassem (11.5-14.5) % Plt Count (130-400) K/uL MPV (9.4-12.4) fL Immature Gran % (Auto) % Neut % (Auto) % Lymph % (Auto) % [place] % (Auto) % Eos % (Auto) % Baso % (Auto) % Neut # (Auto) (1.4-6.5) K/uL Lymph # (Auto) (1.2-3.4) K/uL [place] # (Auto) (0.24-0.82) K/uL Eos # (Auto) (0-0.50) K/uL Baso # (Auto) (0-0.2) K/uL Immature Gran # (Auto) (0.00-0.02) K/uL Ovalocytes ESR (0-15) mm/hr PT (9.0-12.0) Seconds INR (0.9-1.1) APTT (21.0-31.0) Seconds PTT Ratio Sodium 137 (136-145) mmol/L Potassium 3.6 (3.5-5.1) mmol/L Chloride 102 (98-107) mmol/L Carbon Dioxide 29 (21-32) mmol/L Anion Gap 6 (3-11) BUN 20 (6-23) mg/dl Creatinine 1.31 (0.6-1.4) mg/dl Est Cr Clr Drug Dosing 91.3 ml/min Est GFR ( Amer) 88.9 ml/min Est GFR (Non-Af Amer) 76.7 ml/min BUN/Creatinine Ratio 15.3 (10-20) Glucose 138 H (70-99(Fasting)) mg/dl POC Glucose 132 H (70-99) mg/dl Calcium 9.1 (8.5-10.1) mg/dl Phosphorus 3.6 (2.5-4.9) mg/dl Magnesium 1.8 (1.7-2.4) mg/dl Iron (35-175) mcg/dl TIBC (250-450) mcg/dl Unsaturated IBC (155-355) mcg/dl Transferrin % Sat (20-50) % Ferritin (8-388) ng/ml Total Bilirubin 0.5 (0.2-1.0) mg/dl Direct Bilirubin (0-0.2) mg/dl AST 13 (13-39) U/L ALT 10 (7-52) U/L Alkaline Phosphatase 51 (34-104) U/L Total Creatine Kinase (30-223) U/L C-Reactive Protein (0-0.5) mg/dl Total Protein 7.3 (6.0-8.3) gm/dl Albumin 3.9 (3.4-5.0) gm/dl Globulin 3.4 (2.5-4.0) gm/dl Albumin/Globulin Ratio 1.1 (0.9-2) Procalcitonin (0-0.5) ng/ml Urine Color Urine Appearance (Clear) Urine pH (4.5-7.5) Ur Specific [place] (1.000-1.030) Urine Protein (Negative) Urine Glucose (UA) (Negative) Urine Ketones (Negative) Urine Blood (Negative) Urine Nitrite (Negative) Urine Bilirubin (Negative) Urine Urobilinogen (Negative) Ur Leukocyte Esterase (Negative) Urine WBC (Auto) (0-5) /hpf Urine RBC (Auto) (0-4) /hpf U Hyaline Cast (Auto) (0-5) /lpf U Epithel Cells (Auto) (0-5) /lpf Urine Bacteria (Auto) (Negative) Ur Renal Epithelial Cell Urine Mucus (None Prsent) [place] (0.6-1.2) mmol/L Arsenic (<23) mcg/L Lead (<3.5) mcg/dL Mercury (<=10) mcg/L Adenovirus (PCR) (NotDetected) B. pertussis DNA (PCR) (NotDetected) B.parapertussis DNA PCR (NotDetected) C. pneumoniae DNA (PCR) (NotDetected) Coronavirus OC43 (PCR) (NotDetected) Coronavirus HKU1 (PCR) (NotDetected) Coronavirus 229E (PCR) (NotDetected) SARS-CoV-2 (PCR) NEGATIVE (Negative) Coronavirus NL63 (PCR) (NotDetected) Human Metapneumovir PCR (NotDetected) Influenza Type A (PCR) (NotDetected) Influenza Type B (PCR) (NotDetected) M. pneumoniae (PCR) (NotDetected) Parainfluenza 1 (PCR) (NotDetected) Parainfluenza 2 (PCR) (NotDetected) Parainfluenza 3 (PCR) (NotDetected) Parainfluenza 4 (PCR) (NotDetected) RSV (PCR) (NotDetected) Entero/Rhino (PCR) (NotDetected) SARS-CoV-2, RNA, NAAT (NEGATIVE) 04/09/22 04/09/22 04/09/22 Range/Units 01:53 04:30 04:30 WBC 10.76 (4.8-10.8) K/ul RBC 4.23 L (4.63-6.08) M/uL Hgb 10.4 L (14.0-18.0) g/dl Hct 32.5 L (40.1-51.0) % MCV 76.8 L (80.0-100.0) fL MCH 24.6 L (25.0-34.0) pg MCHC 32.0 (32.0-36.0) g/dL RDW Std Deviation 36.5 (36.4-46.3) fL RDW Coeff of Bassem 13.1 (11.5-14.5) % Plt Count 194 (130-400) K/uL MPV 9.8 (9.4-12.4) fL Immature Gran % (Auto) 0.3 % Neut % (Auto) 88.6 % Lymph % (Auto) 6.1 % [place] % (Auto) 4.6 % Eos % (Auto) 0.3 % Baso % (Auto) 0.1 % Neut # (Auto) 9.53 H (1.4-6.5) K/uL Lymph # (Auto) 0.66 L (1.2-3.4) K/uL [place] # (Auto) 0.50 (0.24-0.82) K/uL Eos # (Auto) 0.03 (0-0.50) K/uL Baso # (Auto) 0.01 (0-0.2) K/uL Immature Gran # (Auto) 0.03 H (0.00-0.02) K/uL Ovalocytes ESR (0-15) mm/hr PT (9.0-12.0) Seconds INR (0.9-1.1) APTT (21.0-31.0) Seconds PTT Ratio Sodium 136 (136-145) mmol/L Potassium 3.4 L (3.5-5.1) mmol/L Chloride 102 (98-107) mmol/L Carbon Dioxide 29 (21-32) mmol/L Anion Gap 5 (3-11) BUN 14 (6-23) mg/dl Creatinine 1.18 (0.6-1.4) mg/dl Est Cr Clr Drug Dosing 101.4 ml/min Est GFR ( Amer) 100.9 ml/min Est GFR (Non-Af Amer) 87.1 ml/min BUN/Creatinine Ratio 11.9 (10-20) Glucose 119 H (70-99(Fasting)) mg/dl POC Glucose (70-99) mg/dl Calcium 8.8 (8.5-10.1) mg/dl Phosphorus 3.2 (2.5-4.9) mg/dl Magnesium 1.8 (1.7-2.4) mg/dl Iron (35-175) mcg/dl TIBC (250-450) mcg/dl Unsaturated IBC (155-355) mcg/dl Transferrin % Sat (20-50) % Ferritin (8-388) ng/ml Total Bilirubin (0.2-1.0) mg/dl Direct Bilirubin (0-0.2) mg/dl AST (13-39) U/L ALT (7-52) U/L Alkaline Phosphatase (34-104) U/L Total Creatine Kinase (30-223) U/L C-Reactive Protein (0-0.5) mg/dl Total Protein (6.0-8.3) gm/dl Albumin (3.4-5.0) gm/dl Globulin (2.5-4.0) gm/dl Albumin/Globulin Ratio (0.9-2) Procalcitonin (0-0.5) ng/ml Urine Color Dark Yellow Urine Appearance Clear (Clear) Urine pH 6.5 (4.5-7.5) Ur Specific [place] 1.040 H (1.000-1.030) Urine Protein 1+ H (Negative) Urine Glucose (UA) Negative (Negative) Urine Ketones Trace H (Negative) Urine Blood Negative (Negative) Urine Nitrite Negative (Negative) Urine Bilirubin 1+ H (Negative) Urine Urobilinogen Negative (Negative) Ur Leukocyte Esterase Negative (Negative) Urine WBC (Auto) 1-5 (0-5) /hpf Urine RBC (Auto) 0-4 (0-4) /hpf U Hyaline Cast (Auto) 0 (0-5) /lpf U Epithel Cells (Auto) >30 H (0-5) /lpf Urine Bacteria (Auto) Negative (Negative) Ur Renal Epithelial Cell Not Reportable Urine Mucus Present A (None Prsent) [place] (0.6-1.2) mmol/L Arsenic (<23) mcg/L Lead (<3.5) mcg/dL Mercury (<=10) mcg/L Adenovirus (PCR) (NotDetected) B. pertussis DNA (PCR) (NotDetected) B.parapertussis DNA PCR (NotDetected) C. pneumoniae DNA (PCR) (NotDetected) Coronavirus OC43 (PCR) (NotDetected) Coronavirus HKU1 (PCR) (NotDetected) Coronavirus 229E (PCR) (NotDetected) SARS-CoV-2 (PCR) (Negative) Coronavirus NL63 (PCR) (NotDetected) Human Metapneumovir PCR (NotDetected) Influenza Type A (PCR) (NotDetected) Influenza Type B (PCR) (NotDetected) M. pneumoniae (PCR) (NotDetected) Parainfluenza 1 (PCR) (NotDetected) Parainfluenza 2 (PCR) (NotDetected) Parainfluenza 3 (PCR) (NotDetected) Parainfluenza 4 (PCR) (NotDetected) RSV (PCR) (NotDetected) Entero/Rhino (PCR) (NotDetected) SARS-CoV-2, RNA, NAAT (NEGATIVE) 04/09/22 04/09/22 04/09/22 Range/Units 05:45 11:52 18:07 WBC (4.8-10.8) K/ul RBC (4.63-6.08) M/uL Hgb (14.0-18.0) g/dl Hct (40.1-51.0) % MCV (80.0-100.0) fL MCH (25.0-34.0) pg MCHC (32.0-36.0) g/dL RDW Std Deviation (36.4-46.3) fL RDW Coeff of Bassem (11.5-14.5) % Plt Count (130-400) K/uL MPV (9.4-12.4) fL Immature Gran % (Auto) % Neut % (Auto) % Lymph % (Auto) % [place] % (Auto) % Eos % (Auto) % Baso % (Auto) % Neut # (Auto) (1.4-6.5) K/uL Lymph # (Auto) (1.2-3.4) K/uL [place] # (Auto) (0.24-0.82) K/uL Eos # (Auto) (0-0.50) K/uL Baso # (Auto) (0-0.2) K/uL Immature Gran # (Auto) (0.00-0.02) K/uL Ovalocytes ESR (0-15) mm/hr PT (9.0-12.0) Seconds INR (0.9-1.1) APTT (21.0-31.0) Seconds PTT Ratio Sodium (136-145) mmol/L Potassium (3.5-5.1) mmol/L Chloride (98-107) mmol/L Carbon Dioxide (21-32) mmol/L Anion Gap (3-11) BUN (6-23) mg/dl Creatinine (0.6-1.4) mg/dl Est Cr Clr Drug Dosing ml/min Est GFR ( Amer) ml/min Est GFR (Non-Af Amer) ml/min BUN/Creatinine Ratio (10-20) Glucose (70-99(Fasting)) mg/dl POC Glucose 104 H 86 103 H (70-99) mg/dl Calcium (8.5-10.1) mg/dl Phosphorus (2.5-4.9) mg/dl Magnesium (1.7-2.4) mg/dl Iron (35-175) mcg/dl TIBC (250-450) mcg/dl Unsaturated IBC (155-355) mcg/dl Transferrin % Sat (20-50) % Ferritin (8-388) ng/ml Total Bilirubin (0.2-1.0) mg/dl Direct Bilirubin (0-0.2) mg/dl AST (13-39) U/L ALT (7-52) U/L Alkaline Phosphatase (34-104) U/L Total Creatine Kinase (30-223) U/L C-Reactive Protein (0-0.5) mg/dl Total Protein (6.0-8.3) gm/dl Albumin (3.4-5.0) gm/dl Globulin (2.5-4.0) gm/dl Albumin/Globulin Ratio (0.9-2) Procalcitonin (0-0.5) ng/ml Urine Color Urine Appearance (Clear) Urine pH (4.5-7.5) Ur Specific [place] (1.000-1.030) Urine Protein (Negative) Urine Glucose (UA) (Negative) Urine Ketones (Negative) Urine Blood (Negative) Urine Nitrite (Negative) Urine Bilirubin (Negative) Urine Urobilinogen (Negative) Ur Leukocyte Esterase (Negative) Urine WBC (Auto) (0-5) /hpf Urine RBC (Auto) (0-4) /hpf U Hyaline Cast (Auto) (0-5) /lpf U Epithel Cells (Auto) (0-5) /lpf Urine Bacteria (Auto) (Negative) Ur Renal Epithelial Cell Urine Mucus (None Prsent) [place] (0.6-1.2) mmol/L Arsenic (<23) mcg/L Lead (<3.5) mcg/dL Mercury (<=10) mcg/L Adenovirus (PCR) (NotDetected) B. pertussis DNA (PCR) (NotDetected) B.parapertussis DNA PCR (NotDetected) C. pneumoniae DNA (PCR) (NotDetected) Coronavirus OC43 (PCR) (NotDetected) Coronavirus HKU1 (PCR) (NotDetected) Coronavirus 229E (PCR) (NotDetected) SARS-CoV-2 (PCR) (Negative) Coronavirus NL63 (PCR) (NotDetected) Human Metapneumovir PCR (NotDetected) Influenza Type A (PCR) (NotDetected) Influenza Type B (PCR) (NotDetected) M. pneumoniae (PCR) (NotDetected) Parainfluenza 1 (PCR) (NotDetected) Parainfluenza 2 (PCR) (NotDetected) Parainfluenza 3 (PCR) (NotDetected) Parainfluenza 4 (PCR) (NotDetected) RSV (PCR) (NotDetected) Entero/Rhino (PCR) (NotDetected) SARS-CoV-2, RNA, NAAT (NEGATIVE) 04/09/22 04/09/22 04/10/22 Range/Units 22:49 23:28 05:47 WBC (4.8-10.8) K/ul RBC (4.63-6.08) M/uL Hgb (14.0-18.0) g/dl Hct (40.1-51.0) % MCV (80.0-100.0) fL MCH (25.0-34.0) pg MCHC (32.0-36.0) g/dL RDW Std Deviation (36.4-46.3) fL RDW Coeff of Bassem (11.5-14.5) % Plt Count (130-400) K/uL MPV (9.4-12.4) fL Immature Gran % (Auto) % Neut % (Auto) % Lymph % (Auto) % [place] % (Auto) % Eos % (Auto) % Baso % (Auto) % Neut # (Auto) (1.4-6.5) K/uL Lymph # (Auto) (1.2-3.4) K/uL [place] # (Auto) (0.24-0.82) K/uL Eos # (Auto) (0-0.50) K/uL Baso # (Auto) (0-0.2) K/uL Immature Gran # (Auto) (0.00-0.02) K/uL Ovalocytes ESR (0-15) mm/hr PT (9.0-12.0) Seconds INR (0.9-1.1) APTT (21.0-31.0) Seconds PTT Ratio Sodium (136-145) mmol/L Potassium (3.5-5.1) mmol/L Chloride (98-107) mmol/L Carbon Dioxide (21-32) mmol/L Anion Gap (3-11) BUN (6-23) mg/dl Creatinine (0.6-1.4) mg/dl Est Cr Clr Drug Dosing ml/min Est GFR ( Amer) ml/min Est GFR (Non-Af Amer) ml/min BUN/Creatinine Ratio (10-20) Glucose (70-99(Fasting)) mg/dl POC Glucose 94 90 (70-99) mg/dl Calcium (8.5-10.1) mg/dl Phosphorus (2.5-4.9) mg/dl Magnesium (1.7-2.4) mg/dl Iron (35-175) mcg/dl TIBC (250-450) mcg/dl Unsaturated IBC (155-355) mcg/dl Transferrin % Sat (20-50) % Ferritin (8-388) ng/ml Total Bilirubin (0.2-1.0) mg/dl Direct Bilirubin (0-0.2) mg/dl AST (13-39) U/L ALT (7-52) U/L Alkaline Phosphatase (34-104) U/L Total Creatine Kinase 396 H (30-223) U/L C-Reactive Protein (0-0.5) mg/dl Total Protein (6.0-8.3) gm/dl Albumin (3.4-5.0) gm/dl Globulin (2.5-4.0) gm/dl Albumin/Globulin Ratio (0.9-2) Procalcitonin (0-0.5) ng/ml Urine Color Urine Appearance (Clear) Urine pH (4.5-7.5) Ur Specific [place] (1.000-1.030) Urine Protein (Negative) Urine Glucose (UA) (Negative) Urine Ketones (Negative) Urine Blood (Negative) Urine Nitrite (Negative) Urine Bilirubin (Negative) Urine Urobilinogen (Negative) Ur Leukocyte Esterase (Negative) Urine WBC (Auto) (0-5) /hpf Urine RBC (Auto) (0-4) /hpf U Hyaline Cast (Auto) (0-5) /lpf U Epithel Cells (Auto) (0-5) /lpf Urine Bacteria (Auto) (Negative) Ur Renal Epithelial Cell Urine Mucus (None Prsent) [place] (0.6-1.2) mmol/L Arsenic (<23) mcg/L Lead (<3.5) mcg/dL Mercury (<=10) mcg/L Adenovirus (PCR) (NotDetected) B. pertussis DNA (PCR) (NotDetected) B.parapertussis DNA PCR (NotDetected) C. pneumoniae DNA (PCR) (NotDetected) Coronavirus OC43 (PCR) (NotDetected) Coronavirus HKU1 (PCR) (NotDetected) Coronavirus 229E (PCR) (NotDetected) SARS-CoV-2 (PCR) (Negative) Coronavirus NL63 (PCR) (NotDetected) Human Metapneumovir PCR (NotDetected) Influenza Type A (PCR) (NotDetected) Influenza Type B (PCR) (NotDetected) M. pneumoniae (PCR) (NotDetected) Parainfluenza 1 (PCR) (NotDetected) Parainfluenza 2 (PCR) (NotDetected) Parainfluenza 3 (PCR) (NotDetected) Parainfluenza 4 (PCR) (NotDetected) RSV (PCR) (NotDetected) Entero/Rhino (PCR) (NotDetected) SARS-CoV-2, RNA, NAAT (NEGATIVE) 04/10/22 04/10/22 04/10/22 Range/Units 08:01 08:01 08:01 WBC 9.66 (4.8-10.8) K/ul RBC 4.41 L (4.63-6.08) M/uL Hgb 10.7 L (14.0-18.0) g/dl Hct 33.4 L (40.1-51.0) % MCV 75.7 L (80.0-100.0) fL MCH 24.3 L (25.0-34.0) pg MCHC 32.0 (32.0-36.0) g/dL RDW Std Deviation 35.4 L (36.4-46.3) fL RDW Coeff of Bassem 13.0 (11.5-14.5) % Plt Count 204 (130-400) K/uL MPV 10.9 (9.4-12.4) fL Immature Gran % (Auto) % Neut % (Auto) % Lymph % (Auto) % [place] % (Auto) % Eos % (Auto) % Baso % (Auto) % Neut # (Auto) (1.4-6.5) K/uL Lymph # (Auto) (1.2-3.4) K/uL [place] # (Auto) (0.24-0.82) K/uL Eos # (Auto) (0-0.50) K/uL Baso # (Auto) (0-0.2) K/uL Immature Gran # (Auto) (0.00-0.02) K/uL Ovalocytes ESR (0-15) mm/hr PT (9.0-12.0) Seconds INR (0.9-1.1) APTT (21.0-31.0) Seconds PTT Ratio Sodium 139 (136-145) mmol/L Potassium 3.4 L (3.5-5.1) mmol/L Chloride 104 (98-107) mmol/L Carbon Dioxide 30 (21-32) mmol/L Anion Gap 5 (3-11) BUN 12 (6-23) mg/dl Creatinine 1.18 (0.6-1.4) mg/dl Est Cr Clr Drug Dosing 101.4 ml/min Est GFR ( Amer) 100.9 ml/min Est GFR (Non-Af Amer) 87.1 ml/min BUN/Creatinine Ratio 10.2 (10-20) Glucose 111 H (70-99(Fasting)) mg/dl POC Glucose (70-99) mg/dl Calcium 8.8 (8.5-10.1) mg/dl Phosphorus 2.8 (2.5-4.9) mg/dl Magnesium 1.9 (1.7-2.4) mg/dl Iron (35-175) mcg/dl TIBC (250-450) mcg/dl Unsaturated IBC (155-355) mcg/dl Transferrin % Sat (20-50) % Ferritin (8-388) ng/ml Total Bilirubin 0.4 (0.2-1.0) mg/dl Direct Bilirubin 0.2 (0-0.2) mg/dl AST 16 (13-39) U/L ALT 10 (7-52) U/L Alkaline Phosphatase 59 (34-104) U/L Total Creatine Kinase (30-223) U/L C-Reactive Protein (0-0.5) mg/dl Total Protein 6.8 (6.0-8.3) gm/dl Albumin 3.3 L (3.4-5.0) gm/dl Globulin (2.5-4.0) gm/dl Albumin/Globulin Ratio (0.9-2) Procalcitonin 0.27 (0-0.5) ng/ml Urine Color Urine Appearance (Clear) Urine pH (4.5-7.5) Ur Specific [place] (1.000-1.030) Urine Protein (Negative) Urine Glucose (UA) (Negative) Urine Ketones (Negative) Urine Blood (Negative) Urine Nitrite (Negative) Urine Bilirubin (Negative) Urine Urobilinogen (Negative) Ur Leukocyte Esterase (Negative) Urine WBC (Auto) (0-5) /hpf Urine RBC (Auto) (0-4) /hpf U Hyaline Cast (Auto) (0-5) /lpf U Epithel Cells (Auto) (0-5) /lpf Urine Bacteria (Auto) (Negative) Ur Renal Epithelial Cell Urine Mucus (None Prsent) [place] (0.6-1.2) mmol/L Arsenic (<23) mcg/L Lead (<3.5) mcg/dL Mercury (<=10) mcg/L Adenovirus (PCR) (NotDetected) B. pertussis DNA (PCR) (NotDetected) B.parapertussis DNA PCR (NotDetected) C. pneumoniae DNA (PCR) (NotDetected) Coronavirus OC43 (PCR) (NotDetected) Coronavirus HKU1 (PCR) (NotDetected) Coronavirus 229E (PCR) (NotDetected) SARS-CoV-2 (PCR) (Negative) Coronavirus NL63 (PCR) (NotDetected) Human Metapneumovir PCR (NotDetected) Influenza Type A (PCR) (NotDetected) Influenza Type B (PCR) (NotDetected) M. pneumoniae (PCR) (NotDetected) Parainfluenza 1 (PCR) (NotDetected) Parainfluenza 2 (PCR) (NotDetected) Parainfluenza 3 (PCR) (NotDetected) Parainfluenza 4 (PCR) (NotDetected) RSV (PCR) (NotDetected) Entero/Rhino (PCR) (NotDetected) SARS-CoV-2, RNA, NAAT (NEGATIVE) 04/10/22 04/10/22 04/10/22 Range/Units 10:00 12:46 17:38 WBC 9.98 (4.8-10.8) K/ul RBC 4.36 L (4.63-6.08) M/uL Hgb 10.6 L (14.0-18.0) g/dl Hct 33.5 L (40.1-51.0) % MCV 76.8 L (80.0-100.0) fL MCH 24.3 L (25.0-34.0) pg MCHC 31.6 L (32.0-36.0) g/dL RDW Std Deviation 36.3 L (36.4-46.3) fL RDW Coeff of Bassem 13.1 (11.5-14.5) % Plt Count 213 (130-400) K/uL MPV 10.4 (9.4-12.4) fL Immature Gran % (Auto) 0.3 % Neut % (Auto) 82.0 % Lymph % (Auto) 8.9 % [place] % (Auto) 7.8 % Eos % (Auto) 0.9 % Baso % (Auto) 0.1 % Neut # (Auto) 8.18 H (1.4-6.5) K/uL Lymph # (Auto) 0.89 L (1.2-3.4) K/uL [place] # (Auto) 0.78 (0.24-0.82) K/uL Eos # (Auto) 0.09 (0-0.50) K/uL Baso # (Auto) 0.01 (0-0.2) K/uL Immature Gran # (Auto) 0.03 H (0.00-0.02) K/uL Ovalocytes ESR (0-15) mm/hr PT (9.0-12.0) Seconds INR (0.9-1.1) APTT (21.0-31.0) Seconds PTT Ratio Sodium (136-145) mmol/L Potassium (3.5-5.1) mmol/L Chloride (98-107) mmol/L Carbon Dioxide (21-32) mmol/L Anion Gap (3-11) BUN (6-23) mg/dl Creatinine (0.6-1.4) mg/dl Est Cr Clr Drug Dosing ml/min Est GFR ( Amer) ml/min Est GFR (Non-Af Amer) ml/min BUN/Creatinine Ratio (10-20) Glucose (70-99(Fasting)) mg/dl POC Glucose 106 H (70-99) mg/dl Calcium (8.5-10.1) mg/dl Phosphorus (2.5-4.9) mg/dl Magnesium (1.7-2.4) mg/dl Iron (35-175) mcg/dl TIBC (250-450) mcg/dl Unsaturated IBC (155-355) mcg/dl Transferrin % Sat (20-50) % Ferritin (8-388) ng/ml Total Bilirubin (0.2-1.0) mg/dl Direct Bilirubin (0-0.2) mg/dl AST (13-39) U/L ALT (7-52) U/L Alkaline Phosphatase (34-104) U/L Total Creatine Kinase (30-223) U/L C-Reactive Protein (0-0.5) mg/dl Total Protein (6.0-8.3) gm/dl Albumin (3.4-5.0) gm/dl Globulin (2.5-4.0) gm/dl Albumin/Globulin Ratio (0.9-2) Procalcitonin (0-0.5) ng/ml Urine Color Urine Appearance (Clear) Urine pH (4.5-7.5) Ur Specific [place] (1.000-1.030) Urine Protein (Negative) Urine Glucose (UA) (Negative) Urine Ketones (Negative) Urine Blood (Negative) Urine Nitrite (Negative) Urine Bilirubin (Negative) Urine Urobilinogen (Negative) Ur Leukocyte Esterase (Negative) Urine WBC (Auto) (0-5) /hpf Urine RBC (Auto) (0-4) /hpf U Hyaline Cast (Auto) (0-5) /lpf U Epithel Cells (Auto) (0-5) /lpf Urine Bacteria (Auto) (Negative) Ur Renal Epithelial Cell Urine Mucus (None Prsent) [place] (0.6-1.2) mmol/L Arsenic (<23) mcg/L Lead (<3.5) mcg/dL Mercury (<=10) mcg/L Adenovirus (PCR) Not Detected (NotDetected) B. pertussis DNA (PCR) Not Detected (NotDetected) B.parapertussis DNA PCR Not Detected (NotDetected) C. pneumoniae DNA (PCR) Not Detected (NotDetected) Coronavirus OC43 (PCR) Not Detected (NotDetected) Coronavirus HKU1 (PCR) Not Detected (NotDetected) Coronavirus 229E (PCR) Not Detected (NotDetected) SARS-CoV-2 (PCR) Not Detected (Negative) Coronavirus NL63 (PCR) Not Detected (NotDetected) Human Metapneumovir PCR Not Detected (NotDetected) Influenza Type A (PCR) Not Detected (NotDetected) Influenza Type B (PCR) Not Detected (NotDetected) M. pneumoniae (PCR) Not Detected (NotDetected) Parainfluenza 1 (PCR) Not Detected (NotDetected) Parainfluenza 2 (PCR) Not Detected (NotDetected) Parainfluenza 3 (PCR) Not Detected (NotDetected) Parainfluenza 4 (PCR) Not Detected (NotDetected) RSV (PCR) Not Detected (NotDetected) Entero/Rhino (PCR) Not Detected (NotDetected) SARS-CoV-2, RNA, NAAT (NEGATIVE) 04/10/22 04/10/22 04/11/22 Range/Units 17:38 23:59 00:37 WBC (4.8-10.8) K/ul RBC (4.63-6.08) M/uL Hgb (14.0-18.0) g/dl Hct (40.1-51.0) % MCV (80.0-100.0) fL MCH (25.0-34.0) pg MCHC (32.0-36.0) g/dL RDW Std Deviation (36.4-46.3) fL RDW Coeff of Bassem (11.5-14.5) % Plt Count (130-400) K/uL MPV (9.4-12.4) fL Immature Gran % (Auto) % Neut % (Auto) % Lymph % (Auto) % [place] % (Auto) % Eos % (Auto) % Baso % (Auto) % Neut # (Auto) (1.4-6.5) K/uL Lymph # (Auto) (1.2-3.4) K/uL [place] # (Auto) (0.24-0.82) K/uL Eos # (Auto) (0-0.50) K/uL Baso # (Auto) (0-0.2) K/uL Immature Gran # (Auto) (0.00-0.02) K/uL Ovalocytes ESR (0-15) mm/hr PT 12.3 H (9.0-12.0) Seconds INR 1.2 H (0.9-1.1) APTT 32.3 H 58.3 H* (21.0-31.0) Seconds PTT Ratio 1.2 2.1 Sodium (136-145) mmol/L Potassium (3.5-5.1) mmol/L Chloride (98-107) mmol/L Carbon Dioxide (21-32) mmol/L Anion Gap (3-11) BUN (6-23) mg/dl Creatinine (0.6-1.4) mg/dl Est Cr Clr Drug Dosing ml/min Est GFR ( Amer) ml/min Est GFR (Non-Af Amer) ml/min BUN/Creatinine Ratio (10-20) Glucose (70-99(Fasting)) mg/dl POC Glucose 112 H (70-99) mg/dl Calcium (8.5-10.1) mg/dl Phosphorus (2.5-4.9) mg/dl Magnesium (1.7-2.4) mg/dl Iron (35-175) mcg/dl TIBC (250-450) mcg/dl Unsaturated IBC (155-355) mcg/dl Transferrin % Sat (20-50) % Ferritin (8-388) ng/ml Total Bilirubin (0.2-1.0) mg/dl Direct Bilirubin (0-0.2) mg/dl AST (13-39) U/L ALT (7-52) U/L Alkaline Phosphatase (34-104) U/L Total Creatine Kinase (30-223) U/L C-Reactive Protein (0-0.5) mg/dl Total Protein (6.0-8.3) gm/dl Albumin (3.4-5.0) gm/dl Globulin (2.5-4.0) gm/dl Albumin/Globulin Ratio (0.9-2) Procalcitonin (0-0.5) ng/ml Urine Color Urine Appearance (Clear) Urine pH (4.5-7.5) Ur Specific [place] (1.000-1.030) Urine Protein (Negative) Urine Glucose (UA) (Negative) Urine Ketones (Negative) Urine Blood (Negative) Urine Nitrite (Negative) Urine Bilirubin (Negative) Urine Urobilinogen (Negative) Ur Leukocyte Esterase (Negative) Urine WBC (Auto) (0-5) /hpf Urine RBC (Auto) (0-4) /hpf U Hyaline Cast (Auto) (0-5) /lpf U Epithel Cells (Auto) (0-5) /lpf Urine Bacteria (Auto) (Negative) Ur Renal Epithelial Cell Urine Mucus (None Prsent) [place] (0.6-1.2) mmol/L Arsenic (<23) mcg/L Lead (<3.5) mcg/dL Mercury (<=10) mcg/L Adenovirus (PCR) (NotDetected) B. pertussis DNA (PCR) (NotDetected) B.parapertussis DNA PCR (NotDetected) C. pneumoniae DNA (PCR) (NotDetected) Coronavirus OC43 (PCR) (NotDetected) Coronavirus HKU1 (PCR) (NotDetected) Coronavirus 229E (PCR) (NotDetected) SARS-CoV-2 (PCR) (Negative) Coronavirus NL63 (PCR) (NotDetected) Human Metapneumovir PCR (NotDetected) Influenza Type A (PCR) (NotDetected) Influenza Type B (PCR) (NotDetected) M. pneumoniae (PCR) (NotDetected) Parainfluenza 1 (PCR) (NotDetected) Parainfluenza 2 (PCR) (NotDetected) Parainfluenza 3 (PCR) (NotDetected) Parainfluenza 4 (PCR) (NotDetected) RSV (PCR) (NotDetected) Entero/Rhino (PCR) (NotDetected) SARS-CoV-2, RNA, NAAT (NEGATIVE) 04/11/22 04/11/22 04/11/22 Range/Units 05:54 06:30 06:30 WBC (4.8-10.8) K/ul RBC (4.63-6.08) M/uL Hgb (14.0-18.0) g/dl Hct (40.1-51.0) % MCV (80.0-100.0) fL MCH (25.0-34.0) pg MCHC (32.0-36.0) g/dL RDW Std Deviation (36.4-46.3) fL RDW Coeff of Bassem (11.5-14.5) % Plt Count (130-400) K/uL MPV (9.4-12.4) fL Immature Gran % (Auto) % Neut % (Auto) % Lymph % (Auto) % [place] % (Auto) % Eos % (Auto) % Baso % (Auto) % Neut # (Auto) (1.4-6.5) K/uL Lymph # (Auto) (1.2-3.4) K/uL [place] # (Auto) (0.24-0.82) K/uL Eos # (Auto) (0-0.50) K/uL Baso # (Auto) (0-0.2) K/uL Immature Gran # (Auto) (0.00-0.02) K/uL Ovalocytes ESR (0-15) mm/hr PT (9.0-12.0) Seconds INR (0.9-1.1) APTT 61.3 H* (21.0-31.0) Seconds PTT Ratio 2.2 Sodium 138 (136-145) mmol/L Potassium 4.0 (3.5-5.1) mmol/L Chloride 103 (98-107) mmol/L Carbon Dioxide 31 (21-32) mmol/L Anion Gap 4 (3-11) BUN 12 (6-23) mg/dl Creatinine 1.04 (0.6-1.4) mg/dl Est Cr Clr Drug Dosing 115.0 ml/min Est GFR ( Amer) 117.6 ml/min Est GFR (Non-Af Amer) 101.4 ml/min BUN/Creatinine Ratio 11.5 (10-20) Glucose 107 H (70-99(Fasting)) mg/dl POC Glucose 95 (70-99) mg/dl Calcium 9.2 (8.5-10.1) mg/dl Phosphorus 5.1 H D (2.5-4.9) mg/dl Magnesium 2.0 (1.7-2.4) mg/dl Iron (35-175) mcg/dl TIBC (250-450) mcg/dl Unsaturated IBC (155-355) mcg/dl Transferrin % Sat (20-50) % Ferritin (8-388) ng/ml Total Bilirubin (0.2-1.0) mg/dl Direct Bilirubin (0-0.2) mg/dl AST (13-39) U/L ALT (7-52) U/L Alkaline Phosphatase (34-104) U/L Total Creatine Kinase 154 (30-223) U/L C-Reactive Protein (0-0.5) mg/dl Total Protein (6.0-8.3) gm/dl Albumin (3.4-5.0) gm/dl Globulin (2.5-4.0) gm/dl Albumin/Globulin Ratio (0.9-2) Procalcitonin (0-0.5) ng/ml Urine Color Urine Appearance (Clear) Urine pH (4.5-7.5) Ur Specific [place] (1.000-1.030) Urine Protein (Negative) Urine Glucose (UA) (Negative) Urine Ketones (Negative) Urine Blood (Negative) Urine Nitrite (Negative) Urine Bilirubin (Negative) Urine Urobilinogen (Negative) Ur Leukocyte Esterase (Negative) Urine WBC (Auto) (0-5) /hpf Urine RBC (Auto) (0-4) /hpf U Hyaline Cast (Auto) (0-5) /lpf U Epithel Cells (Auto) (0-5) /lpf Urine Bacteria (Auto) (Negative) Ur Renal Epithelial Cell Urine Mucus (None Prsent) [place] (0.6-1.2) mmol/L Arsenic (<23) mcg/L Lead (<3.5) mcg/dL Mercury (<=10) mcg/L Adenovirus (PCR) (NotDetected) B. pertussis DNA (PCR) (NotDetected) B.parapertussis DNA PCR (NotDetected) C. pneumoniae DNA (PCR) (NotDetected) Coronavirus OC43 (PCR) (NotDetected) Coronavirus HKU1 (PCR) (NotDetected) Coronavirus 229E (PCR) (NotDetected) SARS-CoV-2 (PCR) (Negative) Coronavirus NL63 (PCR) (NotDetected) Human Metapneumovir PCR (NotDetected) Influenza Type A (PCR) (NotDetected) Influenza Type B (PCR) (NotDetected) M. pneumoniae (PCR) (NotDetected) Parainfluenza 1 (PCR) (NotDetected) Parainfluenza 2 (PCR) (NotDetected) Parainfluenza 3 (PCR) (NotDetected) Parainfluenza 4 (PCR) (NotDetected) RSV (PCR) (NotDetected) Entero/Rhino (PCR) (NotDetected) SARS-CoV-2, RNA, NAAT (NEGATIVE) 04/11/22 04/11/22 04/12/22 Range/Units 12:09 17:54 00:23 WBC (4.8-10.8) K/ul RBC (4.63-6.08) M/uL Hgb (14.0-18.0) g/dl Hct (40.1-51.0) % MCV (80.0-100.0) fL MCH (25.0-34.0) pg MCHC (32.0-36.0) g/dL RDW Std Deviation (36.4-46.3) fL RDW Coeff of Bassem (11.5-14.5) % Plt Count (130-400) K/uL MPV (9.4-12.4) fL Immature Gran % (Auto) % Neut % (Auto) % Lymph % (Auto) % [place] % (Auto) % Eos % (Auto) % Baso % (Auto) % Neut # (Auto) (1.4-6.5) K/uL Lymph # (Auto) (1.2-3.4) K/uL [place] # (Auto) (0.24-0.82) K/uL Eos # (Auto) (0-0.50) K/uL Baso # (Auto) (0-0.2) K/uL Immature Gran # (Auto) (0.00-0.02) K/uL Ovalocytes ESR (0-15) mm/hr PT (9.0-12.0) Seconds INR (0.9-1.1) APTT (21.0-31.0) Seconds PTT Ratio Sodium (136-145) mmol/L Potassium (3.5-5.1) mmol/L Chloride (98-107) mmol/L Carbon Dioxide (21-32) mmol/L Anion Gap (3-11) BUN (6-23) mg/dl Creatinine (0.6-1.4) mg/dl Est Cr Clr Drug Dosing ml/min Est GFR ( Amer) ml/min Est GFR (Non-Af Amer) ml/min BUN/Creatinine Ratio (10-20) Glucose (70-99(Fasting)) mg/dl POC Glucose 93 96 94 (70-99) mg/dl Calcium (8.5-10.1) mg/dl Phosphorus (2.5-4.9) mg/dl Magnesium (1.7-2.4) mg/dl Iron (35-175) mcg/dl TIBC (250-450) mcg/dl Unsaturated IBC (155-355) mcg/dl Transferrin % Sat (20-50) % Ferritin (8-388) ng/ml Total Bilirubin (0.2-1.0) mg/dl Direct Bilirubin (0-0.2) mg/dl AST (13-39) U/L ALT (7-52) U/L Alkaline Phosphatase (34-104) U/L Total Creatine Kinase (30-223) U/L C-Reactive Protein (0-0.5) mg/dl Total Protein (6.0-8.3) gm/dl Albumin (3.4-5.0) gm/dl Globulin (2.5-4.0) gm/dl Albumin/Globulin Ratio (0.9-2) Procalcitonin (0-0.5) ng/ml Urine Color Urine Appearance (Clear) Urine pH (4.5-7.5) Ur Specific [place] (1.000-1.030) Urine Protein (Negative) Urine Glucose (UA) (Negative) Urine Ketones (Negative) Urine Blood (Negative) Urine Nitrite (Negative) Urine Bilirubin (Negative) Urine Urobilinogen (Negative) Ur Leukocyte Esterase (Negative) Urine WBC (Auto) (0-5) /hpf Urine RBC (Auto) (0-4) /hpf U Hyaline Cast (Auto) (0-5) /lpf U Epithel Cells (Auto) (0-5) /lpf Urine Bacteria (Auto) (Negative) Ur Renal Epithelial Cell Urine Mucus (None Prsent) [place] (0.6-1.2) mmol/L Arsenic (<23) mcg/L Lead (<3.5) mcg/dL Mercury (<=10) mcg/L Adenovirus (PCR) (NotDetected) B. pertussis DNA (PCR) (NotDetected) B.parapertussis DNA PCR (NotDetected) C. pneumoniae DNA (PCR) (NotDetected) Coronavirus OC43 (PCR) (NotDetected) Coronavirus HKU1 (PCR) (NotDetected) Coronavirus 229E (PCR) (NotDetected) SARS-CoV-2 (PCR) (Negative) Coronavirus NL63 (PCR) (NotDetected) Human Metapneumovir PCR (NotDetected) Influenza Type A (PCR) (NotDetected) Influenza Type B (PCR) (NotDetected) M. pneumoniae (PCR) (NotDetected) Parainfluenza 1 (PCR) (NotDetected) Parainfluenza 2 (PCR) (NotDetected) Parainfluenza 3 (PCR) (NotDetected) Parainfluenza 4 (PCR) (NotDetected) RSV (PCR) (NotDetected) Entero/Rhino (PCR) (NotDetected) SARS-CoV-2, RNA, NAAT (NEGATIVE) 04/12/22 04/12/22 04/12/22 Range/Units 05:45 07:40 07:40 WBC 8.08 (4.8-10.8) K/ul RBC 4.18 L (4.63-6.08) M/uL Hgb 10.1 L (14.0-18.0) g/dl Hct 31.7 L (40.1-51.0) % MCV 75.8 L (80.0-100.0) fL MCH 24.2 L (25.0-34.0) pg MCHC 31.9 L (32.0-36.0) g/dL RDW Std Deviation 35.4 L (36.4-46.3) fL RDW Coeff of Bassem 12.9 (11.5-14.5) % Plt Count 276 (130-400) K/uL MPV 10.6 (9.4-12.4) fL Immature Gran % (Auto) 0.1 % Neut % (Auto) 74.2 % Lymph % (Auto) 13.5 % [place] % (Auto) 9.5 % Eos % (Auto) 2.6 % Baso % (Auto) 0.1 % Neut # (Auto) 5.99 (1.4-6.5) K/uL Lymph # (Auto) 1.09 L (1.2-3.4) K/uL [place] # (Auto) 0.77 (0.24-0.82) K/uL Eos # (Auto) 0.21 (0-0.50) K/uL Baso # (Auto) 0.01 (0-0.2) K/uL Immature Gran # (Auto) 0.01 (0.00-0.02) K/uL Ovalocytes ESR (0-15) mm/hr PT (9.0-12.0) Seconds INR (0.9-1.1) APTT 61.0 H* (21.0-31.0) Seconds PTT Ratio 2.2 Sodium (136-145) mmol/L Potassium (3.5-5.1) mmol/L Chloride (98-107) mmol/L Carbon Dioxide (21-32) mmol/L Anion Gap (3-11) BUN (6-23) mg/dl Creatinine (0.6-1.4) mg/dl Est Cr Clr Drug Dosing ml/min Est GFR ( Amer) ml/min Est GFR (Non-Af Amer) ml/min BUN/Creatinine Ratio (10-20) Glucose (70-99(Fasting)) mg/dl POC Glucose 101 H (70-99) mg/dl Calcium (8.5-10.1) mg/dl Phosphorus (2.5-4.9) mg/dl Magnesium (1.7-2.4) mg/dl Iron (35-175) mcg/dl TIBC (250-450) mcg/dl Unsaturated IBC (155-355) mcg/dl Transferrin % Sat (20-50) % Ferritin (8-388) ng/ml Total Bilirubin (0.2-1.0) mg/dl Direct Bilirubin (0-0.2) mg/dl AST (13-39) U/L ALT (7-52) U/L Alkaline Phosphatase (34-104) U/L Total Creatine Kinase (30-223) U/L C-Reactive Protein (0-0.5) mg/dl Total Protein (6.0-8.3) gm/dl Albumin (3.4-5.0) gm/dl Globulin (2.5-4.0) gm/dl Albumin/Globulin Ratio (0.9-2) Procalcitonin (0-0.5) ng/ml Urine Color Urine Appearance (Clear) Urine pH (4.5-7.5) Ur Specific [place] (1.000-1.030) Urine Protein (Negative) Urine Glucose (UA) (Negative) Urine Ketones (Negative) Urine Blood (Negative) Urine Nitrite (Negative) Urine Bilirubin (Negative) Urine Urobilinogen (Negative) Ur Leukocyte Esterase (Negative) Urine WBC (Auto) (0-5) /hpf Urine RBC (Auto) (0-4) /hpf U Hyaline Cast (Auto) (0-5) /lpf U Epithel Cells (Auto) (0-5) /lpf Urine Bacteria (Auto) (Negative) Ur Renal Epithelial Cell Urine Mucus (None Prsent) [place] (0.6-1.2) mmol/L Arsenic (<23) mcg/L Lead (<3.5) mcg/dL Mercury (<=10) mcg/L Adenovirus (PCR) (NotDetected) B. pertussis DNA (PCR) (NotDetected) B.parapertussis DNA PCR (NotDetected) C. pneumoniae DNA (PCR) (NotDetected) Coronavirus OC43 (PCR) (NotDetected) Coronavirus HKU1 (PCR) (NotDetected) Coronavirus 229E (PCR) (NotDetected) SARS-CoV-2 (PCR) (Negative) Coronavirus NL63 (PCR) (NotDetected) Human Metapneumovir PCR (NotDetected) Influenza Type A (PCR) (NotDetected) Influenza Type B (PCR) (NotDetected) M. pneumoniae (PCR) (NotDetected) Parainfluenza 1 (PCR) (NotDetected) Parainfluenza 2 (PCR) (NotDetected) Parainfluenza 3 (PCR) (NotDetected) Parainfluenza 4 (PCR) (NotDetected) RSV (PCR) (NotDetected) Entero/Rhino (PCR) (NotDetected) SARS-CoV-2, RNA, NAAT (NEGATIVE) 04/12/22 04/12/22 Range/Units 07:40 07:40 WBC (4.8-10.8) K/ul RBC (4.63-6.08) M/uL Hgb (14.0-18.0) g/dl Hct (40.1-51.0) % MCV (80.0-100.0) fL MCH (25.0-34.0) pg MCHC (32.0-36.0) g/dL RDW Std Deviation (36.4-46.3) fL RDW Coeff of Bassem (11.5-14.5) % Plt Count (130-400) K/uL MPV (9.4-12.4) fL Immature Gran % (Auto) % Neut % (Auto) % Lymph % (Auto) % [place] % (Auto) % Eos % (Auto) % Baso % (Auto) % Neut # (Auto) (1.4-6.5) K/uL Lymph # (Auto) (1.2-3.4) K/uL [place] # (Auto) (0.24-0.82) K/uL Eos # (Auto) (0-0.50) K/uL Baso # (Auto) (0-0.2) K/uL Immature Gran # (Auto) (0.00-0.02) K/uL Ovalocytes ESR 120 H (0-15) mm/hr PT (9.0-12.0) Seconds INR (0.9-1.1) APTT (21.0-31.0) Seconds PTT Ratio Sodium 136 (136-145) mmol/L Potassium 3.9 (3.5-5.1) mmol/L Chloride 102 (98-107) mmol/L Carbon Dioxide 27 (21-32) mmol/L Anion Gap 7 (3-11) BUN 11 (6-23) mg/dl Creatinine 0.95 (0.6-1.4) mg/dl Est Cr Clr Drug Dosing 125.9 ml/min Est GFR ( Amer) 131.2 ml/min Est GFR (Non-Af Amer) 113.2 ml/min BUN/Creatinine Ratio 11.6 (10-20) Glucose 101 H (70-99(Fasting)) mg/dl POC Glucose (70-99) mg/dl Calcium 9.5 (8.5-10.1) mg/dl Phosphorus 4.9 (2.5-4.9) mg/dl Magnesium 1.9 (1.7-2.4) mg/dl Iron (35-175) mcg/dl TIBC (250-450) mcg/dl Unsaturated IBC (155-355) mcg/dl Transferrin % Sat (20-50) % Ferritin (8-388) ng/ml Total Bilirubin (0.2-1.0) mg/dl Direct Bilirubin (0-0.2) mg/dl AST (13-39) U/L ALT (7-52) U/L Alkaline Phosphatase (34-104) U/L Total Creatine Kinase (30-223) U/L C-Reactive Protein 18.25 H (0-0.5) mg/dl Total Protein (6.0-8.3) gm/dl Albumin (3.4-5.0) gm/dl Globulin (2.5-4.0) gm/dl Albumin/Globulin Ratio (0.9-2) Procalcitonin (0-0.5) ng/ml Urine Color Urine Appearance (Clear) Urine pH (4.5-7.5) Ur Specific [place] (1.000-1.030) Urine Protein (Negative) Urine Glucose (UA) (Negative) Urine Ketones (Negative) Urine Blood (Negative) Urine Nitrite (Negative) Urine Bilirubin (Negative) Urine Urobilinogen (Negative) Ur Leukocyte Esterase (Negative) Urine WBC (Auto) (0-5) /hpf Urine RBC (Auto) (0-4) /hpf U Hyaline Cast (Auto) (0-5) /lpf U Epithel Cells (Auto) (0-5) /lpf Urine Bacteria (Auto) (Negative) Ur Renal Epithelial Cell Urine Mucus (None Prsent) [place] (0.6-1.2) mmol/L Arsenic (<23) mcg/L Lead (<3.5) mcg/dL Mercury (<=10) mcg/L Adenovirus (PCR) (NotDetected) B. pertussis DNA (PCR) (NotDetected) B.parapertussis DNA PCR (NotDetected) C. pneumoniae DNA (PCR) (NotDetected) Coronavirus OC43 (PCR) (NotDetected) Coronavirus HKU1 (PCR) (NotDetected) Coronavirus 229E (PCR) (NotDetected) SARS-CoV-2 (PCR) (Negative) Coronavirus NL63 (PCR) (NotDetected) Human Metapneumovir PCR (NotDetected) Influenza Type A (PCR) (NotDetected) Influenza Type B (PCR) (NotDetected) M. pneumoniae (PCR) (NotDetected) Parainfluenza 1 (PCR) (NotDetected) Parainfluenza 2 (PCR) (NotDetected) Parainfluenza 3 (PCR) (NotDetected) Parainfluenza 4 (PCR) (NotDetected) RSV (PCR) (NotDetected) Entero/Rhino (PCR) (NotDetected) SARS-CoV-2, RNA, NAAT (NEGATIVE)
[2022-04-12] MEDS: ACETAMINOPHEN 325 MG TAB PO PRN (12:38)
[2022-04-12] MEDS ORDERED: CLINOLIPID 20% IV FAT EMULSION 250 ML IV SCH (16:00)
[2022-04-12] MEDS ORDERED: PERIPHERAL TPN IV SCH (16:00)
[2022-04-12] MEDS ORDERED: AMINO ACIDS 4.25% IV SCH (16:00)
[2022-04-12] MEDS ORDERED: D5W IV SCH (16:00)
[2022-04-12] MEDS: PIPERACILLIN/TAZOBACTAM 3.375 GM in DEXTROSE 5% 100 ML IV SCH ×2 (16:25→23:20)
[2022-04-12] MEDS: HYDROCODONE/ACETAMINOPHEN 7.5/325MG TAB PO PRN (17:21)
--- NOTE | 2022-04-12 17:32 | Hospitalist Progress Note ---
Date of Service April 12, 2022 Assessment & Plan (1) Pulmonary emboli: Plan: "chronic" appearing on CTA per radiology but obviously at very high risk of VTE due to numerous surgical procedures, bedbound status, etc regardless of chronicity he needs AC started heparin drip 04/10/22 I spoke with the durable medical equipment repairer at [facility], Dr Sánchez they only have coumadin available will not start until we know he is reliably taking PO, no further procedures needed, fevers resolved, etc o2 sats remain wnl doubt these are the cause of #2 below (2) Fever: Plan: fever curve has trended down in the last 36 hours. with that said his sed rate is markedly elevated at 120 and crp is elevated at 18. Procal being normal is reassuring but fevers and elevated inflammatory markers are still worrisome. Blood/urine cx's negative. Repeat COVID PCR negative. Complete respiratory BioFire negative. CXR without pneumonia. CTA chest with PEs but doubt cause of fever; and CT neg for pneumonia. CPK was minimally elevated but NMS unlikely. Repeat CPK wnll. No rigidity on exam either. Etiology? Gen surg does not feel that his fevers are from intra-abdominal source. Repeat CBC in am. Repeat CRP in am. His fevers had improved with IV unasyn which may argue that there is an occult bacterial process somewhere. Given the very, very high sed rate & crp will continue empiric abx but change to zosyn. If fevers recur would be in favor of repeating his abdominal/pelvic CT. (3) Small bowel obstruction: Plan: On 04/07, developed high-grade SBO secondary to foreign body impaction POD #5 -- s/p repeat ex lap with enterotomy and removal of foreign body from distal jejunum by Dr Paiz appreciate the surgical and GI assistance on this complicated gentleman cont full liquids see above re: fever safe tray needed (4) Foreign body in stomach: Plan: Intentional ingestion of multiple FBs--> frequent admissions and ER visits for such in the last year at this facility Underwent EGD 03/[address] Anderson, [facility]. Normal esophagus. 3 cm piece of plastic tied to a piece of headphones and a washer. This was unable to be extracted through upper esophageal sphincter due to wedging in the esophagus. Thus - s/p exploratory laparotomy and gastrotomy with foreign body removal (2 pieces been tied together with plastic washers) 03/27/2022 - Isaias Paiz MD. Patient self removed NGT overnight of 03/27 into 03/28, replacement deferred by surgery. Also, of note, there are reports that staff could not locate the safety pin used to hold the NGT to his gown. Unfortunately had a retained foreign body after 03/27 gastrotomy procedure. Patient had 2nd EGD on 03/[address] Duval of [facility]. 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 s/p upper GI series on 03/31- no leak from stomach, ?retained foreign bodies x 2. KUB 04/01, again shows button-like foreign bodies and a total of 4 foreign bodies-it seems these are new in the last 2 days compared to previous imaging on 03/28-suspicion that he ingested further foreign body since the last EGD. The patient did admit to swallowing paperclips and buttons (metallic snaps from hospital gown) after his surgery. KUB 04/02 now with 10 FBs mostly in large bowel-I do not suspect new FBs ingested in the last day but likely just some of these were bunched together on previous xray or obscured by contrast from previous UGI study Healing well post-op from ex lap His diet was advanced to low fiber on 04/02, but then had 1 episode of vomiting which resulted in metallic foreign body getting stuck in the throat He was transferred to the ICU for observation for airway protection and ENT removed foreign body in the throat under direct laryngoscopy on the morning of 04/03 He then had an episode of emesis with either hemoptysis versus hematemesis on the afternoon of 04/03 and again noted on x-ray to have recurrent metallic foreign body in the throat CT soft tissues neck, chest, and abdomen/pelvis performed-fortunately throat foreign body was gone-suspect he swallowed it, and multiple foreign bodies remain in the stomach and bowels. No evidence of perforation -on 04/03, Attempts to get patient EGD to remove the residual metallic foreign bodies persisting in the stomach were unsuccessful both with local GI and calling to [facility] (on divert, no beds available), [facility] (GI and triage nuclear medicine medical director did not feel transfer was necessary and that general GI could perform the endoscopy), and [facility] felt he would be better served at [facility]. Senior Care Captain contacted by day guard and does not approve transfer to [facility] unless it is a life or situation. At this time, he is stable and it is not an emergency to transfer him. 04/04, reached out to [facility] and spoke with GI Dr. Burdick who also did not feel a transfer was necessary and that his EGD would not be considered high risk and could be performed at our facility by a willing GI doctor. Discussed with Dr. Villalobos who also d/w Dr. Shrestha (manager consumer [facility]) who remain in agreement to not scope here at this time. Dr. Villalobos now thinks can continue conservative measures, await for FBs to pass on own, serial xrays. On 04/05, abdominal x-ray again shows even more new foreign bodies with 1 large foreign body in the stomach but is radiopaque and coiled around. Patient admits to hiding objects in his nose since prior to admission and snorting them down into his throat and swallowing them. He told the nurse he thinks the current foreign body is the cord from his headphones. Again discussed with GI and do not suspect this will cause a problem and does not need to be removed by EGD. Fortunately, several of the previous metallic wire like foreign bodies that were in the stomach are now passed out of the stomach into the small intestine. GI recommending ethics consult to discuss appropriateness of continued treatment and procedures in this patient who continues to ingest foreign bodies in an effo rt of self-harm. Ethics consult completed and appreciated-see Dr. Das's note for details. 04/06-feels like still foreign body in nose-cannot visualize on exam; ENT on 04/07 performed nasopharyngoscopy and this was negative for any foreign body On 04/07-with new high-grade SBO -- s/p repeat ex lap with portion of pulse oximeter removed from distal jejunum 04/08 - s/p EGD by Dr Duval - multiple foreign bodies removed from stomach The [facility] has dictated since 04/01 that the patient now remain in three-point restraints, he has a spit mask in place, and they have asked for soft mitts to be placed on both hands to prevent him from continuing to ingest more foreign bodies. This is crucial. one-on-one sitter remains in room in addition to 2 [facility] guards full liquid diet continue PPN until PO intake is consistent & reliable I discussed his case with Dr Sánchez, [facility] durable medical equipment repairer at [facility] The [facility] has struggled with preventing the recurrent FB ingestions We discussed how we could potentially prevent these ingestions No good answer, however (5) Self-harming behavior: Plan: history of such - numerous occasions with various objects, often by way of ingestion as well as insertion of objects in the urethra. Unclear if this is due to psychiatric condition or malingering No foreign material, detachable material, small pieces/parts should be in arms raised with patient at any time. This includes drawstrings to close/waistbands, EKG stickers, and any loose material. Patient has a recurrent history of quickly ingesting or placing foreign materials into orifices. (6) Foreign body in urethra: Plan: Foreign body in urethra - 03/25 and 03/27 - removal on 2 occasions by [facility] in the OR via cystoscopy- Appreciate urology consultation He then poked a hole in his Hernandez catheter and deflated the balloon and pulled it out himself overnight on 03/31 No evidence of trauma to the penis on exam on 04/01 Received ceftriaxone 1 g IV daily empirically x 7 days - abx now d/c recent urine cx negative developed retention 04/02 -- likely due to multiple FB insertions, inflammation, stricture, etc. Pelvic xray 04/02 no radio-opaque FB Hernandez catheter placed again on 04/02 - maintain for now Most recent urine cx is negative (7) Schizophrenia: Plan: Unclear if this is a true diagnosis [facility] records only have a diagnosis of antisocial personality disorder Remains on lithium BID (level wnl this admission), Paxil, Remeron, and Haldol 10mg HS Earlier in his stay, increased haldol dose to 10mg HS due to hearing voices. complaining again about the voices. added AM dose of haldol 5mg. Appreciate Psych input at this point NMS NOT suspected - resumed BID haldol - 5mg am, 10mg HS (8) Depression: Plan: meds as above (9) Anxiety: Plan: meds as above (10) Microcytic anemia: Plan: Fe studies wnl could have thalassemia HEAVY METAL SCREEN negative defer on hemoglobin electrophoresis H/H acceptable (11) DVT prophylaxis: Plan: heparin drip Plan care d/w gen surg, Dr Conway, mainly re: fevers & elevated ESR/CRP Admission and Anticipated Discharge Date Admission Date: March 29, 2022 Subjective patient lying in bed comfortably during the visit he c/o abd pain along his incision but no worse than prior tolerating liquids no vomiting some nausea occasionally passing more flatus than previous denies new complaints Review of Systems Review of Systems: gen - fatigue, asks about diet advancement cv - no further episodes of chest pain pulm - no dyspnea GI - see HPI Physical Exam Physical Exam: gen - NAD, lying comfortably in bed, continues with mesh netting/covering over his face; nontoxic appearing mouth - mmm neck - no JVD heart - RRR, s1 s2, no murmur lungs - CTA b/l abd - BS+, NT, abd wall incision clean; there was a punctate amount of serosanguinous drainage from the center of the incision; softer today, mild- moderate distension slightly better ext - no edema, pulses 2+ b/l psych - awake, alert, normal conversational speech skin - tinea versicolor (chronic) all over chest, upper arms Results & Data Results & Data ([facility]) Vital Signs (Past 12 Hours) Vital Signs Temp Pulse Pulse Resp BP Pulse Ox O2 Del Method 04/12/22 15:25 37.7 C H 95 H 18 119/78 98 Room Air 04/12/22 10:41 37.1 C 04/12/22 06:54 36.6 C 90 17 126/73 100 Room Air Laboratory Results Laboratory Results - last 24 hr 04/11/22 04/12/22 04/12/22 17:54 00:23 05:45 WBC RBC Hgb Hct MCV MCH MCHC RDW Std Deviation RDW Coeff of Bassem Plt Count MPV Immature Gran % (Auto) Neut % (Auto) Lymph % (Auto) [place] % (Auto) Eos % (Auto) Baso % (Auto) Neut # (Auto) Lymph # (Auto) [place] # (Auto) Eos # (Auto) Baso # (Auto) Immature Gran # (Auto) ESR APTT PTT Ratio Sodium Potassium Chloride Carbon Dioxide Anion Gap BUN Creatinine Est Cr Clr Drug Dosing Est GFR ( Amer) Est GFR (Non-Af Amer) BUN/Creatinine Ratio Glucose POC Glucose 96 94 101 H Calcium Phosphorus Magnesium C-Reactive Protein 04/12/22 04/12/22 04/12/22 07:40 07:40 07:40 WBC 8.08 RBC 4.18 L Hgb 10.1 L Hct 31.7 L MCV 75.8 L MCH 24.2 L MCHC 31.9 L RDW Std Deviation 35.4 L RDW Coeff of Bassem 12.9 Plt Count 276 MPV 10.6 Immature Gran % (Auto) 0.1 Neut % (Auto) 74.2 Lymph % (Auto) 13.5 [place] % (Auto) 9.5 Eos % (Auto) 2.6 Baso % (Auto) 0.1 Neut # (Auto) 5.99 Lymph # (Auto) 1.09 L [place] # (Auto) 0.77 Eos # (Auto) 0.21 Baso # (Auto) 0.01 Immature Gran # (Auto) 0.01 ESR 120 H APTT 61.0 H* PTT Ratio 2.2 Sodium Potassium Chloride Carbon Dioxide Anion Gap BUN Creatinine Est Cr Clr Drug Dosing Est GFR ( Amer) Est GFR (Non-Af Amer) BUN/Creatinine Ratio Glucose POC Glucose Calcium Phosphorus Magnesium C-Reactive Protein 04/12/22 04/12/22 07:40 12:07 WBC RBC Hgb Hct MCV MCH MCHC RDW Std Deviation RDW Coeff of Bassem Plt Count MPV Immature Gran % (Auto) Neut % (Auto) Lymph % (Auto) [place] % (Auto) Eos % (Auto) Baso % (Auto) Neut # (Auto) Lymph # (Auto) [place] # (Auto) Eos # (Auto) Baso # (Auto) Immature Gran # (Auto) ESR APTT PTT Ratio Sodium 136 Potassium 3.9 Chloride 102 Carbon Dioxide 27 Anion Gap 7 BUN 11 Creatinine 0.95 Est Cr Clr Drug Dosing 125.9 Est GFR ( Amer) 131.2 Est GFR (Non-Af Amer) 113.2 BUN/Creatinine Ratio 11.6 Glucose 101 H POC Glucose 89 Calcium 9.5 Phosphorus 4.9 Magnesium 1.9 C-Reactive Protein 18.25 H PG Care Time/CCT Total # of Minutes Spent Total Time Spent with Patient: Total time spent is greater than 50% in coordination of care (as documented) at patient's floor/unit and/or counseling patient: Coding Level of Care Code 11023 Subseq Hosp Care Lvl 2 Diagnoses Pulmonary emboli I26.99 Fever R50.9 Small bowel obstruction K56.609 Foreign body in stomach T18.2XXA Self-harming behavior Foreign body in urethra T19.0XXA Schizophrenia F20.0 Schizophrenia type: paranoid schizophrenia Depression F32.A Depression Type: unspecified Anxiety F41.9 Microcytic anemia D50.9 DVT prophylaxis Z29.9 (1) Depression Depression Type: unspecified Qualified Code(s): F32.A - Depression, unspecified (2) Schizophrenia Schizophrenia type: paranoid schizophrenia Qualified Code(s): F20.0 - Paranoid schizophrenia
[2022-04-12] MEDS: PARoxetine HCL 20 MG TAB PO SCH (20:21)
[2022-04-12] MEDS: MIRTAZAPINE SOLTAB 15 MG PO SCH (20:22)
[2022-04-13] MEDS ORDERED: OLANZapine 10 MG/2.1 ML SDV IM PRN (08:15)
--- NOTE | 2022-04-13 11:56 | Psychiatric Progress Note ---
Date of Service April 13, 2022 Impression / Recommendations Impression 22 yo inmate at [facility] with repeated self-harm attempts via ingestion and insertion of foreign bodies into urethra. Presentation consistent with antisocial PD as well as likely malingering with secondary gain of hospital admission as well as possible cluster B/self-harm component as means of treating distress from incarceration/limited coping skills/feeling unsupported by his family. 04/13/22: increased agitation/aggression and behavioral dysregulation consistent with antisocial behaviors as he feels aggression will help expedite his desire to return to long-term. Given acute agitation and aggression overnight will discontinue olanzapine and order Thorazine IM to be used for behavioral emergency. Would monitor QTc via EKG as safe to do so (with caution to prevent any ingestions of EKG leads/stickers) if multiple IM doses required. QTc on last EKG stable. No evidence for acute psychosis. (1) Antisocial behavior: (2) Aggression: (3) Antisocial personality disorder: (4) Self-harming behavior: (5) Malingering: (6) Auditory hallucination: (7) Foreign body ingestion: (8) Depression: Plan 04/13/22: Discontinue olanzapine IM given extent of his agitation and need for more sedating psychotropic medication. Start thorazine 50mg IM q6H prn, DO NOT exceed 200 mg per 24 hours. Interval History Identifying Information 22 yo male, long hx of foreign body ingestion while incarcerated. Initial consult on 04/04/22, hospitalist service asked for recommendations given increase in agitation overnight. Chief Complaint "the voices are better". Review of Systems Notes agitated overnight, liquid diet Subjective Subjective Patient was seen & assessed and interval progress reviewed. Chart reviewed and overnight events discussed with Dr. Loya and RN. Last night took his po medication but then became very agitated and aggressive requiring guards at bedside to intervene and patient placed in four point restraints per guards. Pulled out his IVs last night, refusing all medical care, reportedly was able to move even with restraints in place to throw stool after using bedpan. Now with 3 long-term guards at bedside and this morning he continued to spit at guards through spit shield which remains in place. Diet advanced to liquid diet by surgical team. Seen after receiving 5mg IM olanzapine for ongoing agitation. Appeared less agitated, lying in bed with handcuffs on, spit shield in place, soft mitts on. He cannot state any precipitants for events last night except to say "I want to be discharged". Reportedly told staff last night he believes that if he is aggressive he will be discharged back to long-term where he states he wants to go at this point. Reviewed ongoing need for medical monitoring and importance of allowing care for shared goal of discharge as soon as medically safe. He states the voices have lessened and he likes that he is back on all his po psychiatric medication. Denies any muscle stiffness and guards at bedside when asked confirm no issues overnight observed in terms of movement difficulty nor muscles stuck in one position. Procedures Performed Operation Date: 03/25/22 00:15 Actual Procedures p Cystoscopy, Removal of Foreign Body - José Luis Burton DO Operation Date: 03/25/22 10:35 <No data on this case meets the specified criteria> Operation Date: 03/26/22 09:40 Actual Procedures p Esophagogastroduodenoscopy - Henri Anderson Jr, MD Operation Date: 03/27/22 14:10 Actual Procedures p Exploratory Laparotomy, Gastrotomy Removal of Foreign Body(Not Applicable) - José Luis Paiz MD s Cystoscopy, removal of foreign body(Not Applicable) - Anton Randall MD Operation Date: 03/28/22 10:05 Actual Procedures p Esophagogastroduodenoscopy with foreign body removal - Aki Duval MD Operation Date: 04/03/22 07:00 Actual Procedures p Esophagoscopy, laryngoscopy with foreign body removal(Not Applicable) - Tonja Orantes MD Operation Date: 04/03/22 09:50 <No data on this case meets the specified criteria> Operation Date: 04/07/22 08:50 Actual Procedures p Exploratory Laparotomy, Small Bowel Enterotomy with Removal of Foreign Body(Not Applicable) - José Luis Paiz MD Operation Date: 04/08/22 08:00 Actual Procedures p EGD Foreign Body Removal(Not Applicable) - Aki Duval MD Physical Exam Psychiatric Orientation: alert and oriented x 3 Apperance: appropriately dressed (soft mitts, spit shield on his head) and appropriately groomed Eye Contact: + fair eye contact Motor Behavior: no abnormal motor movements Speech: normal rate/rhythm/volume of speech (soft) Affect: + blunted affect Mood: + irritable mood; no anxious mood Thought Process: linear/logical thought process and + concrete thought process Thought Content: reality based without delusions Suicidal Thoughts: denies suicidal thoughts Homicidal Thoughts: denies homicidal thoughts Hallucinations: + auditory hallucinations (intermittent voices, states these have lessened significantly ); no visual hallucinations Cognition: recent memory grossly intact, remote memory grossly intact, attention grossly intact and language grossly intact Estimated Intelligence: consistent with education level Insight: + fair insight Judgement: + severely impaired judgement Vital Signs (Past 24 Hours) Last Vital Signs Temp 37.7 C H 04/12/22 15:25 Pulse 95 H 04/12/22 15:25 Resp 18 04/12/22 15:25 BP 119/78 04/12/22 15:25 Pulse Ox 98 04/12/22 15:25 O2 Del Method 04/12/22 15:25 O2 Flow Rate 5 04/07/22 17:45 Results & Data ([facility]) Laboratory Results Laboratory Results - last 24 hr 04/12/22 04/12/22 12:07 17:47 POC Glucose 89 96 Current Inpatient Medications Current Inpatient Medications: Current Inpatient Medications Acetaminophen (Acetaminophen 325 Mg Tab) 650 mg PO Q4H PRN PRN Reason: Pain Stop: 05/05/22 22:04 Last Admin: 04/12/22 12:38 Dose: 650 mg Hydrocodone Bitart/Acetaminophen (Hydrocodone/Acetaminophen 7.5/325mg Tab) 1 tab PO Q6H PRN PRN Reason: Pain on pain scale 1-8/10 Stop: 04/26/22 16:42 Last Admin: 04/12/22 17:21 Dose: 1 tab Haloperidol (Haloperidol 5 Mg Tab) 10 mg PO HS [facility] Stop: 04/28/22 20:59 Last Admin: 04/12/22 20:20 Dose: 10 mg Haloperidol (Haloperidol 5 Mg Tab) 10 mg PO QAM [facility] Stop: 05/13/22 08:59 Haloperidol Lactate (Haloperidol Lactate 5 Mg/Ml 1 Ml Vial) 5 mg IM DAILY PRN PRN Reason: severe agitation, risk of harm Stop: 04/26/22 16:27 Dextrose (D10w) 1,000 mls @ 0 mls/hr IV .Q0M PRN PRN Reason: protocol (see label comments) Stop: 05/08/22 11:44 Pantoprazole Sodium 40 mg/ (Syringe) 10 mls @ 5 mls/min IV DAILY@1100 [facility] Stop: 05/09/22 10:59 Last Admin: 04/12/22 11:18 Dose: 5 mls/min Piperacillin Sod/Tazobactam (Sod 3.375 gm/ Dextrose) 115 mls @ 28.75 mls/hr IV Q8H [facility]; Protocol Stop: 04/14/22 09:14 Last Admin: 04/12/22 23:20 Dose: Not Given [place] Carbonate ([place] Carbonate 300 Mg Tab) 300 mg PO BID [facility] Stop: 04/25/22 20:59 Last Admin: 04/12/22 20:22 Dose: 300 mg Mirtazapine (Mirtazapine Soltab 15 Mg) 45 mg PO HS [facility]; Protocol Stop: 04/26/22 20:59 Last Admin: 04/12/22 20:22 Dose: 45 mg Morphine Sulfate (Morphine Sulfate 4 Mg/Ml 1 Ml Carp\\Vial) 4 mg IV Q4H PRN PRN Reason: pain on pain scale 9-10/10 Stop: 04/21/22 18:35 Olanzapine (Olanzapine 10 Mg/2.1 Ml Sdv) 5 mg IM Q12H PRN PRN Reason: agitation/aggressive behavior Stop: 05/13/22 08:14 Last Admin: 04/13/22 08:53 Dose: 5 mg Ondansetron HCl (Ondansetron Inj 2 Mg/Ml 2 Ml Vial) 4 mg IV Q6H PRN PRN Reason: Nausea And Vomiting Stop: 04/27/22 13:39 Last Admin: 04/12/22 12:38 Dose: 4 mg Paroxetine HCl (Paroxetine Hcl 20 Mg Tab) 30 mg PO [facility] Stop: 04/24/22 02:44 Last Admin: 04/12/22 20:21 Dose: 30 mg (1) Depression Depression Type: unspecified Qualified Code(s): F32.A - Depression, unspecified
[2022-04-13] MEDS ORDERED: chlorproMAZINE HCL 25 MG/ML AMP IM PRN (11:58)
--- NOTE | 2022-04-13 12:22 | Surgery Progress Note ---
Date of Service April 13, 2022 Assessment & Plan (1) Small bowel obstruction: (2) Foreign body in stomach: Plan: F/U S/P exp lap enterotomy for remove FB, POD 5, pt is stable, Temp is better, T 37.1, tolerated diet, continue full liquid diet and iv antibiotic, repeat labs in morning, will F/U, 04/13/2022 12:21PM stable, encourage to eat food. repeat labs in morning, will F/U Plan POD 15 and 4 s/p ex laparotomies for foreign objects in stomach and small bowel respectively. He is continuing to pass flatus and has a fairly benign abdomen. White count is normal. advance to fulls Pulmonary emboli - ok to be anticoagulated Aggressive pulmonary toilet strict isolation from all things able to be swallowed Discussed the case with Dr. Loya the hospitalist. I do not believe the abdomen is the source of his fevers. There will be no utility to a CT scan at this time being so close to his last surgery. We will continue to monitor with serial exams. Dr. Conway covering over the weekend Admission and Anticipated Discharge Date Admission Date: March 29, 2022 Supervising Physician Co-Signing Physician Notes I performed a history and physical examination of the patient today, including specifically on physical exam - soft abdomen. I have discussed the patient's management with the advanced practitioner. Please refer to the nurse practitioner's note for the documented findings and plan of care. He feels fine today, no abdominal pain. Wound looks fine. Plan for EGD to remove the foreign bodies in the stomach. Patient was explained in detail regarding risks, benefits, limitations and alternatives of the above endoscopic procedure. Risks of intravenous sedation used for procedure were also explained. Risks include, but not limited to perforation, bleeding, infection, respiratory distress, cardiac arrest and . Patient is also aware about the possibility of missed lesion. Patient's questions were answered. The patient verbalized understanding the information and agreed to undergo the procedure. Subjective patient lying in bed comfortably during the visit he c/o abd pain along his incision but no worse than prior tolerating liquids no vomiting some nausea occasionally passing more flatus than previous denies new complaints 04/13/2022 12:18PM pt is stable from surgical points, T 37.7, no significant abdominal pain, pt ask me when he can go back?, I said until you have tolerated food, pt said he will eat some foods, Physical Exam Constitutional: WD/WN, vitals as above Eyes: PERRL, conjunctivae normal, anicteric sclerae Neck: trachea midline, no thyromegaly Respiratory: normal respiratory effort, lungs clear to auscultation Cardiovascular: RRR, no murmur, no edema Gastrointestinal (Abdomen): soft, NT, ND, incision intact, no redness, BS +, Musculoskeletal: no cyanosis or clubbing, extremities motor strength 5/5 Neurologic: patellar DTR's 2+ bilat, sensation intact Psychiatric: A+Ox3, euthymic affect
[2022-04-13] MEDS: LITHIUM CARBONATE 300 MG TAB PO SCH ×2 (12:46→19:22)
[2022-04-13] MEDS: haloperidoL 5 MG TAB PO SCH ×2 (12:47→19:21)
[2022-04-13] MEDS: HYDROCODONE/ACETAMINOPHEN 7.5/325MG TAB PO PRN (12:50)
[2022-04-13] MEDS: PIPERACILLIN/TAZOBACTAM 3.375 GM in DEXTROSE 5% 100 ML IV SCH ×2 (15:18→15:43)
[2022-04-13] MEDS: PANTOprazole 40 MG in SYRINGE 0 ML IV SCH (15:18)
[2022-04-13] MEDS ORDERED: Heparin IV Adult Wt-Based Standard *NO* Bolus Protocol IV ONE (17:27)
--- NOTE | 2022-04-13 18:06 | Hospitalist Progress Note ---
Date of Service April 13, 2022 Assessment & Plan (1) Antisocial behavior: Plan: severe aggression and behavior overnight and today now in 4-point handcuffs with mitts on hands b/l and facial netting in place (latter to prevent inadvertent foreign body ingestion as well as spitting) s/p zyprexa 5mg IM x 1 this am with decent results psych has seen - advising thorazine IM prn cont lithium cont haldol BID I placed a call to our arts administrator on-call due to the nature of the events of the last 24 hours I am concerned that even with 4-point restraints in place and 3-4 guards in the room he continues to self-harm (he pulled his ruiz out, pulled his IV out, etc) appreciate psych input (2) Aggression: Plan: as above (3) Antisocial personality disorder: Plan: as above (4) Small bowel obstruction: Plan: On 04/07, developed high-grade SBO secondary to foreign body impaction POD #6 -- s/p repeat ex lap with enterotomy and removal of foreign body from distal jejunum by Dr Paiz appreciate the surgical and GI assistance on this complicated gentleman cont full liquids bowels finally moving see below re: fever (5) Pulmonary emboli: Plan: "chronic" appearing on CTA per radiology but obviously at very high risk of VTE due to numerous surgical procedures this admission, bedbound status, etc regardless of chronicity he needs AC he is a poor AC candidate in light of the issues we have seen this admission but ipdi-rym-fcnn the PEs need Rx started heparin drip 04/10/22 was interrupted overnight and today, but resumed late today I spoke with the chief medical officer at [facility], Dr Sánchez, on 04/11 they only have coumadin available will not start coumadin untill we know he is reliably taking PO, no further procedures needed, fevers resolved, etc o2 sats remain wnl (6) Fever: Plan: fever curve has trended down in the last 48 hours. did have temp of 37.7 yesterday evening. despite fever curve improving sed rate is markedly elevated at 120 and crp was elevated at 18 -- now 15 today. Procal being normal is reassuring but fevers and elevated inflammatory markers are still worrisome. Blood/urine cx's negative. Repeat COVID PCR negative. Complete respiratory BioFire negative. CXR without pneumonia. CTA chest with PEs but doubt cause of fever; and CT neg for pneumonia. CPK was minimally elevated but NMS unlikely. Repeat CPK wnll. No rigidity on exam either. Etiology? Gen surg does not feel that his fevers are from intra-abdominal source. Repeat CBC in am. Repeat CRP in am. His fevers had improved with IV unasyn which may argue that there is an occult bacterial process somewhere. Given the very, very high sed rate & crp will continue empiric abx with zosyn. If fevers recur would be in favor of repeating his abdominal/pelvic CT. (7) Foreign body in stomach: Plan: Intentional ingestion of multiple FBs--> frequent admissions and ER visits for such in the last year at this facility Underwent EGD 03/[address] Anderson, [facility]. Normal esophagus. 3 cm piece of plastic tied to a piece of headphones and a washer. This was unable to be extracted through upper esophageal sphincter due to wedging in the esophagus. Thus - s/p exploratory laparotomy and gastrotomy with foreign body removal (2 pieces been tied together with plastic washers) 03/27/2022 - Isaias Paiz MD. Patient self removed NGT overnight of 03/27 into 03/28, replacement deferred by surgery. Also, of note, there are reports that staff could not locate the safety pin used to hold the NGT to his gown. Unfortunately had a retained foreign body after 03/27 gastrotomy procedure. Patient had 2nd EGD on 03/[address] Duval of [facility]. 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 s/p upper GI series on 03/31- no leak from stomach, ?retained foreign bodies x 2. KUB 10/, again shows button-like foreign bodies and a total of 4 foreign bodies-it seems these are new in the last 2 days compared to previous imaging on 03/28-suspicion that he ingested further foreign body since the last EGD. The patient did admit to swallowing paperclips and buttons (metallic snaps from hospital gown) after his surgery. KUB 10/5 now with 10 FBs mostly in large bowel-I do not suspect new FBs ingested in the last day but likely just some of these were bunched together on previous xray or obscured by contrast from previous UGI study Healing well post-op from ex lap His diet was advanced to low fiber on 04/02, but then had 1 episode of vomiting which resulted in metallic foreign body getting stuck in the throat He was transferred to the ICU for observation for airway protection and ENT r emoved foreign body in the throat under direct laryngoscopy on the morning of 04/03 He then had an episode of emesis with either hemoptysis versus hematemesis on the afternoon of 04/03 and again noted on x-ray to have recurrent metallic foreign body in the throat CT soft tissues neck, chest, and abdomen/pelvis performed-fortunately throat foreign body was gone-suspect he swallowed it, and multiple foreign bodies remain in the stomach and bowels. No evidence of perforation -on 04/03, Attempts to get patient EGD to remove the residual metallic foreign bodies persisting in the stomach were unsuccessful both with local GI and calling to [facility] (on divert, no beds available), [facility] (GI and triage medical office assistant instructor did not feel transfer was necessary and that general GI could perform the endoscopy), and [facility] felt he would be better served at [facility] Senior Living Captain contacted by crossing guard and does not approve transfer to [facility] unless it is a life or situation. At this time, he is stable and it is not an emergency to transfer him. 04/04, reached out to [facility] and spoke with GI Dr. Burdick who also did not feel a transfer was necessary and that his EGD would not be considered high risk and could be performed at our facility by a willing GI doctor. Discussed with Dr. Villalobos who also d/w Dr. Shrestha (diamond driller helper [facility]) who remain in agreement to not scope here at this time. Dr. Villalobos now thinks can continue conservative measures, await for FBs to pass on own, serial xrays. On 04/05, abdominal x-ray again shows even more new foreign bodies with 1 large foreign body in the stomach but is radiopaque and coiled around. Patient admits to hiding objects in his nose since prior to admission and snorting them down into his throat and swallowing them. He told the nurse he thinks the current foreign body is the cord from his headphones. Again discussed with GI and do not suspect this will cause a problem and does not need to be removed by EGD. Fortunately, several of the previous metallic wire like foreign bodies that were in the stomach are now passed out of the stomach into the small intestine. GI recommending ethics consult to discuss appropriateness of continued treatment and procedures in this patient who continues to ingest foreign bodies in an effort of self-harm. Ethics consult completed and appreciated-see Dr. Das's note for details. 04/06-feels like still foreign body in nose-cannot visualize on exam; ENT on 04/07 performed nasopharyngoscopy and this was negative for any foreign body On 04/07-with new high-grade SBO -- s/p repeat ex lap with portion of pulse oximeter removed from distal jejunum 04/08 - s/p EGD by Dr Duval - multiple foreign bodies removed from stomach patient now in four-point restraints, has a spit mask in place, and continues with soft mitts on both hands to prevent him from continuing to ingest more foreign bodies. One-on-one sitter remains in room in addition to multiple nursing home guards. I am concerned that even despite the above the patient amazingly self-removed his IV and ruiz today as noted above in #1 I placed call to our arts administrator on-call discussing the above issues; I am concerned that despite multiple guards present he continues with self-injurious behavior cont full liquid diet I discussed his case with Dr Sánchez, nursing home chief medical officer at [facility], on 04/11 The nursing home has struggled with preventing the recurrent FB ingestions We discussed how we could potentially prevent these ingestions No good answer, however (8) Self-harming behavior: Plan: history of such - numerous occasions with various objects, often by way of ingestion as well as insertion of objects in the urethra. Unclear if this is due to psychiatric condition or malingering or anti-social behavior or combo No foreign material, detachable material, small pieces/parts should be in arms raised with patient at any time. This includes drawstrings to close/waistbands, EKG stickers, and any loose material. Patient has a recurrent history of quickly ingesting or placing foreign materials into orifices. (9) Foreign body in urethra: Plan: Foreign body in urethra - 03/25 and 03/27 - removal on 2 occasions by [facility] in the OR via cystoscopy- Appreciate urology consultation He then poked a hole in his Ruiz catheter and deflated the balloon and pulled it out himself overnight on 03/31 No evidence of trauma to the penis on exam on 04/01 Received ceftriaxone 1 g IV daily empirically x 7 days - abx now d/c recent urine cx negative developed retention 04/02 -- likely due to multiple FB insertions, inflammation, stricture, etc. Pelvic xray 04/02 no radio-opaque FB Ruiz catheter placed again on 04/02 Patient self-removed today Leave ruiz out - only place back if retaining urine (10) Schizophrenia: Plan: Unclear if this is a true diagnosis Senior Living records only have a diagnosis of antisocial personality disorder Remains on lithium BID (level wnl this admission), Paxil, Remeron, and Haldol Earlier in his stay, increased haldol dose to 10mg HS due to hearing voices. complaining again about the voices. added AM dose of haldol 5mg. this was increased to 10mg qam. see above re: thorazine, etc (11) Depression: Plan: meds as above (12) Anxiety: Plan: meds as above (13) Microcytic anemia: Plan: Fe studies wnl could have thalassemia HEAVY METAL SCREEN negative defer on hemoglobin electrophoresis H/H acceptable (14) DVT prophylaxis: Plan: heparin drip Plan care d/w gen surg, Dr Conway psych - Dr Olivarez [facility] arts administrator on-call total care time today 80 minutes - complex care coordination Admission and Anticipated Discharge Date Admission Date: March 29, 2022 Subjective events of last 24 hours noted overnight - patient took his evening medications then, sometime after 11pm, he told the guards & staff he wanted to be discharged he was told that that wasn't possible given the hour of day, etc shortly after he attempted, with his free leg, to kick the medical typist at some point he even tried to spit on the MA the nursing home guards, by reported, had to use their tazors on the patient this am he has been refusing all care - no vitals, no labs, not eating, being uncooperative, spitting at the guards, etc I ordered zyprexa IM 5mg x 1 this was given by nursing, and he did become more cooperative after such I discussed his care and the circumstances of overnight with psych - they ordered thorazine IM prn sometime late am or early afternoon he ripped his IV out and self-removed his ruiz catheter I saw the patient early afternoon he was in 4-point restraints (handcuffs) netting device still on head mitts still in place I did not examine him given the circumstances of overnight/this am He asked when he could "have food" and asked if he could "refuse his care" I explained to him that he didn't appear to be thinking rationally or clearly and that he did not have insight into his medical conditions as evidenced by the events of the night/day he reported ongoing incisional abdominal pain but no worse than previous no nausea or vomiting has had 3 small BMs overnight and today Physical Exam Physical Exam: gen - NAD, lying comfortably in bed, continues with mesh netting/covering over his face; nontoxic appearing psych - poor insight, not responding to internal stimuli, flat affect, oriented x 3 abd - abd wall incision looks clean; grossly his distension appears better; no drainage from his incision skin - tinea versicolor (chronic) all over chest, upper arms musculo - all 4 limbs in handcuffs Results & Data Results & Data ([facility]) Vital Signs (Past 12 Hours) Vital Signs Temp Pulse Resp BP Pulse Ox 04/13/22 14:31 36.8 C 96 H 18 115/66 98 Laboratory Results Laboratory Results - last 24 hr 04/13/22 04/13/22 04/13/22 18:01 18:01 18:03 WBC 7.27 RBC 4.87 Hgb 11.9 L Hct 36.5 L MCV 74.9 L MCH 24.4 L MCHC 32.6 RDW Std Deviation 34.4 L RDW Coeff of Bassem 12.7 Plt Count 372 MPV 9.9 Immature Gran % (Auto) 0.3 Neut % (Auto) 73.8 Lymph % (Auto) 13.8 Powell % (Auto) 9.8 Eos % (Auto) 2.2 Baso % (Auto) 0.1 Neut # (Auto) 5.37 Lymph # (Auto) 1.00 L Powell # (Auto) 0.71 Eos # (Auto) 0.16 Baso # (Auto) 0.01 Immature Gran # (Auto) 0.02 PT 11.5 INR 1.1 APTT 29.9 PTT Ratio 1.1 Sodium 137 Potassium 3.9 Chloride 100 Carbon Dioxide 27 Anion Gap 10 BUN 12 Creatinine 1.08 Est Cr Clr Drug Dosing 110.8 Est GFR ( Amer) 112.3 Est GFR (Non-Af Amer) 96.9 BUN/Creatinine Ratio 11.1 Glucose 97 Calcium 10.4 H Phosphorus 4.7 Magnesium 2.1 C-Reactive Protein 15.17 H 04/14/22 00:35 WBC RBC Hgb Hct MCV MCH MCHC RDW Std Deviation RDW Coeff of Bassem Plt Count MPV Immature Gran % (Auto) Neut % (Auto) Lymph % (Auto) Powell % (Auto) Eos % (Auto) Baso % (Auto) Neut # (Auto) Lymph # (Auto) Powell # (Auto) Eos # (Auto) Baso # (Auto) Immature Gran # (Auto) PT INR APTT 44.6 H PTT Ratio 1.6 Sodium Potassium Chloride Carbon Dioxide Anion Gap BUN Creatinine Est Cr Clr Drug Dosing Est GFR ( Amer) Est GFR (Non-Af Amer) BUN/Creatinine Ratio Glucose Calcium Phosphorus Magnesium C-Reactive Protein PG Care Time/CCT Total # of Minutes Spent Total Time Spent with Patient: Total time spent is greater than 50% in coordination of care (as documented) at patient's floor/unit and/or counseling patient: Prolonged Care Time Prolonged Care Time: Yes Total Prolonged Care Time: 80 Coding Level of Care Code 14960 Subseq Hosp Care Lvl 3 (25 - SIGNIFICANT, SEPARATELY IDENTIFIABLE ) Diagnoses Antisocial behavior Aggression R46.89 Antisocial personality disorder F60.2 Small bowel obstruction K56.609 Pulmonary emboli I26.99 Fever R50.9 Foreign body in stomach T18.2XXA Self-harming behavior Foreign body in urethra T19.0XXA Schizophrenia F20.0 Schizophrenia type: paranoid schizophrenia Depression F32.A Depression Type: unspecified Anxiety F41.9 Microcytic anemia D50.9 DVT prophylaxis Z29.9 Additional Codes Prolonged Care Time - Prolonged Care Time: Yes ([id number]) (1) Depression Depression Type: unspecified Qualified Code(s): F32.A - Depression, unspecified (2) Schizophrenia Schizophrenia type: paranoid schizophrenia Qualified Code(s): F20.0 - Paranoid schizophrenia
[2022-04-13 18:14] LABS: Basophils # (auto) 0.01 K/uL (0-0.2); Basophils % (auto) 0.1 %; Eosinophils # (auto) 0.16 K/uL (0-0.50); Eosinophils % (auto) 2.2 %; Hematocrit (blood only) 36.5 % (40.1-51.0); Hemoglobin 11.9 g/dl (14.0-18.0); Immature Granulocytes # (auto) 0.02 K/uL (0.00-0.02); Immature Granulocytes % (auto) 0.3 %; Lymphocytes % (auto) 13.8 %; Mean Corpuscular Hemoglobin 24.4 pg (25.0-34.0); Mean Corpuscular Hgb Conc 32.6 g/dL (32.0-36.0); Mean Corpuscular Volume 74.9 fL (80.0-100.0); Mean Platelet Volume 9.9 fL (9.4-12.4); Monocytes # (auto) 0.71 K/uL (0.24-0.82); Monocytes % (auto) 9.8 %; Neutrophils # (auto) 5.37 K/uL (1.4-6.5); Neutrophils % (auto) 73.8 %; Platelet Count 372 K/uL (130-400); RDW Coefficient of Variation 12.7 % (11.5-14.5); RDW Standard Deviation 34.4 fL (36.4-46.3); Red Blood Count 4.87 M/uL (4.63-6.08); White Blood Count 7.27 K/ul (4.8-10.8)
[2022-04-13 18:25] LABS: INR 1.1 (0.9-1.1); Partial Thromboplastin Ratio 1.1; Partial Thromboplastin Time 29.9 Seconds (21.0-31.0); Prothrombin Time 11.5 Seconds (9.0-12.0)
[2022-04-13] MEDS: HEPARIN SODIUM/DEXTROSE 25,000 UNITS/500 ML BAG IV SCH (18:31)
[2022-04-13 18:37] LABS: BUN Creatinine Ratio 11.1 (10-20); C Reactive Protein 15.17 mg/dl (0-0.5); Calcium 10.4 mg/dl (8.5-10.1); Creatinine Clr Calc Pharmacy 110.8 ml/min; Est GFR (African American) 112.3 ml/min; Est GFR (Non-African American) 96.9 ml/min; Magnesium 2.1 mg/dl (1.7-2.4); Phosphorus 4.7 mg/dl (2.5-4.9); Potassium 3.9 mmol/L (3.5-5.1)
[2022-04-13] MEDS: PARoxetine HCL 20 MG TAB PO SCH (19:22)
[2022-04-13] MEDS: MIRTAZAPINE SOLTAB 15 MG PO SCH (19:22)
[2022-04-13] MEDS: MoRPHine SULFATE 4 MG/ML 1 ML CARP\\VIAL IV PRN (19:29)
[2022-04-14] MEDS: PIPERACILLIN/TAZOBACTAM 3.375 GM in DEXTROSE 5% 100 ML IV SCH ×2 (00:41→08:54)
[2022-04-14] MEDS: MoRPHine SULFATE 4 MG/ML 1 ML CARP\\VIAL IV PRN ×6 (00:41→22:15)
[2022-04-14 01:01] LABS: Partial Thromboplastin Ratio 1.6; Partial Thromboplastin Time 44.6 Seconds (21.0-31.0)
[2022-04-14 07:25] LABS: Basophils # (auto) 0.02 K/uL (0-0.2); Basophils % (auto) 0.3 %; Eosinophils # (auto) 0.27 K/uL (0-0.50); Eosinophils % (auto) 3.6 %; Hematocrit (blood only) 35.2 % (40.1-51.0); Hemoglobin 11.3 g/dl (14.0-18.0); Immature Granulocytes # (auto) 0.03 K/uL (0.00-0.02); Immature Granulocytes % (auto) 0.4 %; Lymphocytes # (auto) 1.26 K/uL (1.2-3.4); Lymphocytes % (auto) 16.8 %; Mean Corpuscular Hemoglobin 24.1 pg (25.0-34.0); Mean Corpuscular Hgb Conc 32.1 g/dL (32.0-36.0); Mean Corpuscular Volume 75.1 fL (80.0-100.0); Monocytes # (auto) 0.84 K/uL (0.24-0.82); Monocytes % (auto) 11.2 %; Neutrophils # (auto) 5.07 K/uL (1.4-6.5); Neutrophils % (auto) 67.7 %; Platelet Count 368 K/uL (130-400); RDW Coefficient of Variation 12.8 % (11.5-14.5); RDW Standard Deviation 34.6 fL (36.4-46.3); Red Blood Count 4.69 M/uL (4.63-6.08); White Blood Count 7.49 K/ul (4.8-10.8)
[2022-04-14 07:44] LABS: BUN Creatinine Ratio 9.7 (10-20); Bilirubin,Total 0.4 mg/dl (0.2-1.0); C Reactive Protein 12.59 mg/dl (0-0.5); Creatinine Clr Calc Pharmacy 96.5 ml/min; Globulin 4.1 gm/dl (2.5-4.0); Phosphorus 5.2 mg/dl (2.5-4.9); Potassium 4.1 mmol/L (3.5-5.1); Total Protein 8.1 gm/dl (6.0-8.3)
[2022-04-14 07:59] LABS: Partial Thromboplastin Time 54.9 Seconds (21.0-31.0)
[2022-04-14] MEDS: haloperidoL 5 MG TAB PO SCH ×2 (08:51→20:30)
[2022-04-14] MEDS: LITHIUM CARBONATE 300 MG TAB PO SCH ×2 (08:52→20:31)
[2022-04-14] MEDS: HEPARIN SODIUM/DEXTROSE 25,000 UNITS/500 ML BAG IV SCH (10:56)
--- NOTE | 2022-04-14 11:13 | Surgery Progress Note ---
Date of Service April 14, 2022 Assessment & Plan (1) Small bowel obstruction: (2) Foreign body in stomach: Plan POD 18 and 7 s/p ex laparotomies for foreign objects in stomach and small bowel respectively. He has had 3 bowel movements. Advance to regular diet Pulmonary emboli - ok to be anticoagulated Aggressive pulmonary toilet strict isolation from all things able to be swallowed If tolerating regular diet, okay to discharge back to [facility] from surgical standpoint Admission and Anticipated Discharge Date Admission Date: March 29, 2022 Subjective Feeling well today. Had 3 bowel movements. Continuing to pass gas. Denies any nausea or vomiting. Tolerating clears. Physical Exam Physical Exam: Abdomen soft, minimal tenderness, no distention; incision healing well with dermabond; no signs of infection Results & Data ([facility]) Vital Signs (Past 12 Hours) Vital Signs Temp Pulse Resp BP Pulse Ox O2 Del Method 04/14/22 07:36 36.8 C 69 16 135/85 99 Room Air
[2022-04-14] MEDS: PANTOprazole 40 MG in SYRINGE 0 ML IV SCH (11:25)
[2022-04-14] MEDS: MIRTAZAPINE SOLTAB 15 MG PO SCH (20:29)
[2022-04-14] MEDS: PARoxetine HCL 20 MG TAB PO SCH (20:31)
--- NOTE | 2022-04-14 21:08 | Hospitalist Progress Note ---
Date of Service April 14, 2022 Assessment & Plan (1) Antisocial behavior: Plan: severe aggression and behavior 04/12 pm and 04/13 now in 4-point handcuffs with mitts on hands b/l and facial netting in place (latter to prevent inadvertent foreign body ingestion as well as spitting) 04/13 patient self-removed his ruiz and IV psych advised thorazine IM prn on 04/13 but has not needed such fortunately cont lithium cont haldol BID appreciate psych input (2) Aggression: Plan: as above (3) Antisocial personality disorder: Plan: as above (4) Small bowel obstruction: Plan: On 04/07, developed high-grade SBO secondary to foreign body impaction POD #7 -- s/p repeat ex lap with enterotomy and removal of foreign body from distal jejunum by Dr Paiz appreciate the surgical and GI assistance on this complicated gentleman diet advancement to regular today incision clean (5) Pulmonary emboli: Plan: "chronic" appearing on CTA per radiology but obviously at very high risk of VTE due to numerous surgical procedures this admission, bedbound status, etc regardless of chronicity he needs AC he is a poor AC candidate in light of the issues we have seen this admission but abny-vfv-uhuz the PEs need Rx started heparin drip 04/10/22 was interrupted briefly over the weekend due to lack of IV access I spoke with the medical oncology physician at [facility], Dr Sánchez, on 04/11 they only have coumadin available; no DOACs I called the nursing home today -- they DO have lovenox options moving forward - lovenox 1.5mg/kg/day OR lovenox bridge with coumadin will d/w nursing home medical oncology physician length of Rx -- 3 months (6) Fever: Plan: fever curve has trended down in the last 48-72 hours. no fever now in about 48 hours. sed rate 120 crp elevated at 18 -- now 12.5 today. Procal normal. Blood/urine cx's negative. Repeat COVID PCR negative. Complete respiratory BioFire negative. CXR without pneumonia. CTA chest with PEs but doubt cause of fever; and CT neg for pneumonia. CPK was minimally elevated but NMS unlikely. Repeat CPK wnll. No rigidity on exam either. Etiology? Gen surg does not feel that his fevers are from intra-abdominal source. His fevers had improved with IV unasyn which may argue that there was an occult bacterial process somewhere. Given the very, very high sed rate & crp will continue empiric abx with zosyn. If CRP continues to drop on recheck tomorrow would change zosyn to augmentin and continue latter a few more days. If fevers recur would be in favor of repeating his abdominal/pelvic CT. (7) Foreign body in stomach: Plan: Intentional ingestion of multiple FBs--> frequent admissions and ER visits for such in the last year at this facility Underwent EGD 03/[address] Anderson, [facility]. Normal esophagus. 3 cm piece of plastic tied to a piece of headphones and a washer. This was unable to be extracted through upper esophageal sphincter due to wedging in the esophagus. Thus - s/p exploratory laparotomy and gastrotomy with foreign body removal (2 pieces been tied together with plastic washers) 03/27/2022 - Isaias Paiz MD. Patient self removed NGT overnight of 03/27 into 03/28, replacement deferred by surgery. Also, of note, there are reports that staff could not locate the safety pin used to hold the NGT to his gown. Unfortunately had a retained foreign body after 03/27 gastrotomy procedure. Patient had 2nd EGD on 03/[address] Duval of [facility]. 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 s/p upper GI series on 03/31- no leak from stomach, ?retained foreign bodies x 2. KUB 04/01, again shows button-like foreign bodies and a total of 4 foreign bodies-it seems these are new in the last 2 days compared to previous imaging on 03/28-suspicion that he ingested further foreign body since the last EGD. The patient did admit to swallowing paperclips and buttons (metallic snaps from hospital gown) after his surgery. KUB 04/02 now with 10 FBs mostly in large bowel-I do not suspect new FBs ingested in the last day but likely just some of these were bunched together on previous xray or obscured by contrast from previous UGI study Healing well post-op from ex lap His diet was advanced to low fiber on 04/02, but then had 1 episode of vomiting which resulted in metallic foreign body getting stuck in the throat He was transferred to the ICU for observation for airway protection and ENT removed foreign body in the throat under direct laryngoscopy on the morning of 04/03 He then had an episode of emesis with either hemoptysis versus hematemesis on the afternoon of 04/03 and again noted on x-ray to have recurrent metallic fore ign body in the throat CT soft tissues neck, chest, and abdomen/pelvis performed-fortunately throat foreign body was gone-suspect he swallowed it, and multiple foreign bodies remain in the stomach and bowels. No evidence of perforation -on 04/03, Attempts to get patient EGD to remove the residual metallic foreign bodies persisting in the stomach were unsuccessful both with local GI and calling to [place] (on divert, no beds available), [facility] (GI and triage medical records receptionist did not feel transfer was necessary and that general GI could perform the endoscopy), and [facility] felt he would be better [facility]. Long Term Captain contacted by night guard and does not approve transfer to [facility] [place] unless it is a life or situation. At this time, he is stable and it is not an emergency to transfer him. 04/04, reached out to [facility] and spoke with GI Dr. Burdick who also did not feel a transfer was necessary and that his EGD would not be considered high risk and could be performed at our facility by a willing GI doctor. Discussed with Dr. Villalobos who also d[facility] who remain in agreement to not scope here at this time. Dr. Villalobos now thinks can continue conservative measures, await for FBs to pass on own, serial xrays. On 04/05, abdominal x-ray again shows even more new foreign bodies with 1 large foreign body in the stomach but is radiopaque and coiled around. Patient admits to hiding objects in his nose since prior to admission and snorting them down into his throat and swallowing them. He told the nurse he thinks the current foreign body is the cord from his headphones. Again discussed with GI and do not suspect this will cause a problem and does not need to be removed by EGD. Fortunately, several of the previous metallic wire like foreign bodies that were in the stomach are now passed out of the stomach into the small intestine. GI recommending ethics consult to discuss appropriateness of continued treatment and procedures in this patient who continues to ingest foreign bodies in an effort of self-harm. Ethics consult completed and appreciated-see Dr. Shonda portillo's note for details. 04/06-feels like still foreign body in nose-cannot visualize on exam; ENT on 04/07 performed nasopharyngoscopy and this was negative for any foreign body On 04/07-with new high-grade SBO -- s/p repeat ex lap with portion of pulse oximeter removed from distal jejunum 04/08 - s/p EGD by Dr Duval - multiple foreign bodies removed from stomach patient now in four-point restraints, has a spit mask in place, and continues with soft mitts on both hands to prevent him from continuing to ingest more foreign bodies. One-on-one sitter remains in room in addition to multiple nursing home guards. patient more calm today; I was able to complete an exam. no ingestions fortunately over the last few days. (8) Self-harming behavior: Plan: history of such - numerous occasions with various objects, often by way of ingestion as well as insertion of objects in the urethra. Unclear if this is due to psychiatric condition or malingering or anti-social behavior or combo No foreign material, detachable material, small pieces/parts should be in arms raised with patient at any time. This includes drawstrings to close/waistbands, EKG stickers, and any loose material. Patient has a recurrent history of quickly ingesting or placing foreign materials into orifices. (9) Foreign body in urethra: Plan: Foreign body in urethra - 03/25 and 03/27 - removal on 2 occasions by [facility] in the OR via cystoscopy- Appreciate urology consultation He then poked a hole in his Ruiz catheter and deflated the balloon and pulled it out himself overnight on 03/31 No evidence of trauma to the penis on exam on 04/01 Received ceftriaxone 1 g IV daily empirically x 7 days - abx now d/c recent urine cx negative developed retention 04/02 -- likely due to multiple FB insertions, inflammation, stricture, etc. Pelvic xray 04/02 no radio-opaque FB Ruiz catheter placed again on 04/02 Patient self-removed 04/13 Leave ruiz out - only place back if retaining urine but no issues overnight or today (10) Schizophrenia: Plan: Unclear if this is a true diagnosis Long Term records only have a diagnosis of antisocial personality disorder Remains on lithium BID (level wnl this admission), Paxil, Remeron, and Haldol Earlier in his stay, increased haldol dose to 10mg HS due to hearing voices. complaining again about the voices. added AM dose of haldol 5mg. this was increased to 10mg qam. see above re: thorazine, etc (11) Depression: Plan: meds as above (12) Anxiety: Plan: meds as above (13) Microcytic anemia: Plan: Fe studies wnl could have thalassemia HEAVY METAL SCREEN negative defer on hemoglobin electrophoresis H/H acceptable (14) DVT prophylaxis: Plan: heparin drip Plan I had a lengthy meeting today with nursing administration, risk management, etc regarding this complex case Moving forward we need a care plan for Mr Simon in the event he has further foreign body ingestions, violent behavior, and readmissions Will attempt to call the nursing home medical oncology physician tomorrow to discuss discharge care plan total time today including meeting as noted above - 35 min Admission and Anticipated Discharge Date Admission Date: March 29, 2022 Subjective no issues overnight multiple guards in the room during the visit he has been started on regular food by gen surg he continues to have bowel movements and flatus denies abd pain today denies nausea/emesis no dyspnea, no chest pain, no fevers, no chills Review of Systems Review of Systems: gen - feeling much better pulm - no cough GI - pain resolved skin - incision clean - voiding w/o any LUTS Physical Exam Physical Exam: gen - NAD, lying comfortably in bed, continues with mesh netting/covering over his face; nontoxic appearing; best he has looked all wee heart - RRR, s1 s2, no murmur lungs - CTA b/l abd - distension nearly resolved; BS+; midline incision clean/well approximated; NT ext - no edema, pulses 2+ b/l psych - poor insight, not responding to internal stimuli, flat affect skin - tinea versicolor (chronic) all over chest, upper arms all 4 limbs in handcuffs; mitts on hands as well Results & Data Results & Data ([facility]) Vital Signs (Past 12 Hours) Vital Signs Temp Pulse Resp BP Pulse Ox O2 Del Method 04/14/22 15:27 36.7 C 100 H 16 111/72 98 Room Air Laboratory Results Laboratory Results - last 24 hr 04/14/22 04/14/22 04/14/22 00:35 07:09 07:09 WBC 7.49 RBC 4.69 Hgb 11.3 L Hct 35.2 L MCV 75.1 L MCH 24.1 L MCHC 32.1 RDW Std Deviation 34.6 L RDW Coeff of Bassem 12.8 Plt Count 368 MPV 10.0 Immature Gran % (Auto) 0.4 Neut % (Auto) 67.7 Lymph % (Auto) 16.8 Greene % (Auto) 11.2 Eos % (Auto) 3.6 Baso % (Auto) 0.3 Neut # (Auto) 5.07 Lymph # (Auto) 1.26 Greene # (Auto) 0.84 H Eos # (Auto) 0.27 Baso # (Auto) 0.02 Immature Gran # (Auto) 0.03 H APTT 44.6 H PTT Ratio 1.6 Sodium 137 Potassium 4.1 Chloride 100 Carbon Dioxide 31 Anion Gap 6 BUN 12 Creatinine 1.24 Est Cr Clr Drug Dosing 96.5 Est GFR ( Amer) 95.0 Est GFR (Non-Af Amer) 82.0 BUN/Creatinine Ratio 9.7 L Glucose 93 Calcium 10.0 Phosphorus 5.2 H Magnesium 2.0 Total Bilirubin 0.4 AST 34 ALT 39 Alkaline Phosphatase 134 H C-Reactive Protein 12.59 H Total Protein 8.1 Albumin 4.0 Globulin 4.1 H Albumin/Globulin Ratio 1.0 04/14/22 07:09 WBC RBC Hgb Hct MCV MCH MCHC RDW Std Deviation RDW Coeff of Bassem Plt Count MPV Immature Gran % (Auto) Neut % (Auto) Lymph % (Auto) Greene % (Auto) Eos % (Auto) Baso % (Auto) Neut # (Auto) Lymph # (Auto) Greene # (Auto) Eos # (Auto) Baso # (Auto) Immature Gran # (Auto) APTT 54.9 H* PTT Ratio 2.0 Sodium Potassium Chloride Carbon Dioxide Anion Gap BUN Creatinine Est Cr Clr Drug Dosing Est GFR ( Amer) Est GFR (Non-Af Amer) BUN/Creatinine Ratio Glucose Calcium Phosphorus Magnesium Total Bilirubin AST ALT Alkaline Phosphatase C-Reactive Protein Total Protein Albumin Globulin Albumin/Globulin Ratio Diagnostic Findings 10/11 blood cultures negative PG Care Time/CCT Total # of Minutes Spent Total Time Spent with Patient: Total time spent is greater than 50% in coordination of care (as documented) at patient's floor/unit and/or counseling patient: Coding Level of Care Code 87312 Subseq Hosp Care Lvl 3 Diagnoses Antisocial behavior Aggression R46.89 Antisocial personality disorder F60.2 Small bowel obstruction K56.609 Pulmonary emboli I26.99 Fever R50.9 Foreign body in stomach T18.2XXA Self-harming behavior Foreign body in urethra T19.0XXA Schizophrenia F20.0 Schizophrenia type: paranoid schizophrenia Depression F32.A Depression Type: unspecified Anxiety F41.9 Microcytic anemia D50.9 DVT prophylaxis Z29.9 (1) Schizophrenia Schizophrenia type: paranoid schizophrenia Qualified Code(s): F20.0 - Paranoid schizophrenia (2) Depression Depression Type: unspecified Qualified Code(s): F32.A - Depression, unspecified
[2022-04-15] MEDS: MoRPHine SULFATE 4 MG/ML 1 ML CARP\\VIAL IV PRN ×2 (02:22→07:17)
[2022-04-15] MEDS: HEPARIN SODIUM/DEXTROSE 25,000 UNITS/500 ML BAG IV SCH ×2 (03:02→11:30)
[2022-04-15] MEDS: haloperidoL 5 MG TAB PO SCH (07:19)
[2022-04-15] MEDS: LITHIUM CARBONATE 300 MG TAB PO SCH (07:20)
[2022-04-15 08:35] LABS: Hematocrit (blood only) 37.3 % (40.1-51.0); Hemoglobin 11.9 g/dl (14.0-18.0); Mean Corpuscular Hemoglobin 23.9 pg (25.0-34.0); Mean Corpuscular Hgb Conc 31.9 g/dL (32.0-36.0); Mean Corpuscular Volume 75.1 fL (80.0-100.0); Mean Platelet Volume 9.9 fL (9.4-12.4); Platelet Count 432 K/uL (130-400); RDW Coefficient of Variation 12.9 % (11.5-14.5); RDW Standard Deviation 34.7 fL (36.4-46.3); Red Blood Count 4.97 M/uL (4.63-6.08); White Blood Count 6.38 K/ul (4.8-10.8)
[2022-04-15 08:58] LABS: Bilirubin,Total 0.3 mg/dl (0.2-1.0)
[2022-04-15 09:03] LABS: BUN Creatinine Ratio 13.6 (10-20); C Reactive Protein 8.65 mg/dl (0-0.5); Calcium 9.9 mg/dl (8.5-10.1); Creatinine Clr Calc Pharmacy 108.8 ml/min; Est GFR (African American) 109.9 ml/min; Est GFR (Non-African American) 94.8 ml/min; Partial Thromboplastin Ratio 2.4
[2022-04-15 09:06] LABS: Partial Thromboplastin Time 66.9 Seconds (21.0-31.0)
[2022-04-15 09:14] LABS: Basophils # (auto) 0.03 K/uL (0-0.2); Basophils % (auto) 0.5 %; Eosinophils # (auto) 0.31 K/uL (0-0.50); Eosinophils % (auto) 4.9 %; Immature Granulocytes # (auto) 0.02 K/uL (0.00-0.02); Immature Granulocytes % (auto) 0.3 %; Lymphocytes # (auto) 1.49 K/uL (1.2-3.4); Lymphocytes % (auto) 23.4 %; Monocytes # (auto) 0.64 K/uL (0.24-0.82); Neutrophils # (auto) 3.89 K/uL (1.4-6.5); Neutrophils % (auto) 60.9 %
[2022-04-15] MEDS: PANTOprazole 40 MG in SYRINGE 0 ML IV SCH (10:09)
[2022-04-15] MEDS ORDERED: ENOXAPARIN 80 MG/0.8 ML SYR SQ SCH (11:00)
[2022-04-15] MEDS ORDERED: AMOXICILLIN/CLAVULANATE 875 MG TAB PO ONE (11:18)
--- NOTE | 2022-04-15 11:38 | Communication Note ---
Date of Service: April 15, 2022 Patient not examined today, chart reviewed POD # 19 and 8 s/p ex laparotomies for foreign objects in stomach and small bowel respectively. afebrile for 72 hours no leukocytosis tolerating regular diet + bowel function Okay from surgical standpoint for discharge back to group home once appropriate from medical standpoint. Our services signing off, please call with any questions/concerns Discussed with Dr. Paiz who agrees with above.
[2022-04-15] MEDS: HYDROCODONE/ACETAMINOPHEN 7.5/325MG TAB PO PRN (12:48)
--- NOTE | 2022-04-15 13:10 | Discharge Summary ---
Date of Service April 15, 2022 Admission HPI Per Admitting Provider swallowed foreign body Discharge Exam gen - NAD, lying comfortably in bed, continues with mesh netting/covering over his face; nontoxic appearing; best he has looked all wee heart - RRR, s1 s2, no murmur lungs - CTA b/l abd - distension nearly resolved; BS+; midline incision clean/well approximated; NT ext - no edema, pulses 2+ b/l psych - poor insight, not responding to internal stimuli, flat affect skin - tinea versicolor (chronic) all over chest, upper arms all 4 limbs in handcuffs; mitts on hands as well Discharge Data Allergies Allergy/AdvReac Type Severity Reaction Status Date / Time No Known Allergies Allergy Verified 03/25/22 00:50 Consultations 03/24/22 23:13 Consult Gastroenterology Routine Consult Urology Routine 03/24/22 23:15 ED Decision to Admit Stat 03/26/22 14:57 Consult General Surgery Routine 04/02/22 21:19 Consult Director Loan Routine Consult Otolaryngology (Head and Neck) Routine 04/04/22 09:23 Consult Gastroenterology Routine 04/04/22 09:39 Consult Psychiatry Routine 04/05/22 15:24 Consult Ethics Routine 04/07/22 11:56 Consult General Surgery Routine Procedures Performed Operation Date: 03/25/22 00:15 Actual Procedures p Cystoscopy, Removal of Foreign Body - José Luis Burton DO Operation Date: 03/25/22 10:35 <No data on this case meets the specified criteria> Operation Date: 03/26/22 09:40 Actual Procedures p Esophagogastroduodenoscopy - Henri Anderson Jr, MD Operation Date: 03/27/22 14:10 Actual Procedures p Exploratory Laparotomy, Gastrotomy Removal of Foreign Body(Not Applicable) - José Luis Paiz MD s Cystoscopy, removal of foreign body(Not Applicable) - Anton Randall MD Operation Date: 03/28/22 10:05 Actual Procedures p Esophagogastroduodenoscopy with foreign body removal - Aki Duval MD Operation Date: 04/03/22 07:00 Actual Procedures p Esophagoscopy, laryngoscopy with foreign body removal(Not Applicable) - Tonja Orantes MD Operation Date: 04/03/22 09:50 <No data on this case meets the specified criteria> Operation Date: 04/07/22 08:50 Actual Procedures p Exploratory Laparotomy, Small Bowel Enterotomy with Removal of Foreign Body(Not Applicable) - José Luis Paiz MD Operation Date: 04/08/22 08:00 Actual Procedures p EGD Foreign Body Removal(Not Applicable) - Aki Duval MD Ordered Studies 03/24/22 20:28 CT abd pelvis IV con only Urgent 03/31/22 15:54 US venous doppler LE BI Routine 04/03/22 14:24 CT abd pelvis wo con Stat CT chest diagnostic wo con Stat CT neck soft tissues [CT soft tissue neck wo con] Stat 04/07/22 12:21 CT abd pelvis wo con Stat 04/10/22 13:28 CT angio chest PE protocol Urgent Hospital Course (1) Antisocial behavior: severe aggression and behavior 04/12 pm and 04/13 now in 4-point handcuffs with mitts on hands b/l and facial netting in place (latter to prevent inadvertent foreign body ingestion as well as spitting) 04/13 patient self-removed his ruiz and IV psych advised thorazine IM prn on 04/13 but has not needed such fortunately cont lithium cont haldol BID appreciate psych input (2) Aggression: as above (3) Antisocial personality disorder: as above (4) Small bowel obstruction: On 04/07, developed high-grade SBO secondary to foreign body impaction POD #7 -- s/p repeat ex lap with enterotomy and removal of foreign body from distal jejunum by Dr Paiz appreciate the surgical and GI assistance on this complicated gentleman diet advancement to regular today incision clean (5) Pulmonary emboli: "chronic" appearing on CTA per radiology but obviously at very high risk of VTE due to numerous surgical procedures this admission, bedbound status, etc regardless of chronicity he needs AC he is a poor AC candidate in light of the issues we have seen this admission but [id number] the PEs need Rx started heparin drip 04/10/22 was interrupted briefly over the weekend due to lack of IV access I spoke with the director of medical review at [facility], Dr Sánchez, on 04/11 they only have coumadin available; no DOACs I called the correction today -- they DO have lovenox options moving forward - lovenox 1.5mg/kg/day OR lovenox bridge with coumadin will d/w correction director of medical review length of Rx -- 3 months (6) Fever: fever curve has trended down in the last 48-72 hours. no fever now in about 48 hours. sed rate 120 crp elevated at 18 -- now 12.5 today. Procal normal. Blood/urine cx's negative. Repeat COVID PCR negative. Complete respiratory BioFire negative. CXR without pneumonia. CTA chest with PEs but doubt cause of fever; and CT neg for pneumonia. CPK was minimally elevated but NMS unlikely. Repeat CPK wnll. No rigidity on exam either. Etiology? Gen surg does not feel that his fevers are from intra-abdominal source. His fevers had improved with IV unasyn which may argue that there was an occult bacterial process somewhere. Given the very, very high sed rate & crp will continue empiric abx with zosyn. If CRP continues to drop on recheck tomorrow would change zosyn to augmentin and continue latter a few more days. If fevers recur would be in favor of repeating his abdominal/pelvic CT. (7) Foreign body in stomach: Intentional ingestion of multiple FBs--> frequent admissions and ER visits for such in the last year at this facility Underwent EGD 03/[address] Anderson, [facility]. Normal esophagus. 3 cm piece of plastic tied to a piece of headphones and a washer. This was unable to be extracted through upper esophageal sphincter due to wedging in the esophagus. Thus - s/p exploratory laparotomy and gastrotomy with foreign body removal (2 pieces been tied together with plastic washers) 03/27/2022 - Isaias Paiz MD. Patient self removed NGT overnight of 03/27 into 03/28, replacement deferred by surgery. Also, of note, there are reports that staff could not locate the safety pin used to hold the NGT to his gown. Unfortunately had a retained foreign body after 03/27 gastrotomy procedure. Patient had 2nd EGD on 03/[address] Duval of [facility]. 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 s/p upper GI series on 03/31- no leak from stomach, ?retained foreign bodies x 2. KUB 04/01, again shows button-like foreign bodies and a total of 4 foreign bodies-it seems these are new in the last 2 days compared to previous imaging on 03/28-suspicion that he ingested further foreign body since the last EGD. The patient did admit to swallowing paperclips and buttons (metallic snaps from hospital gown) after his surgery. KUB 04/02 now with 10 FBs mostly in large bowel-I do not suspect new FBs ingested in the last day but likely just some of these were bunched together on previous xray or obscured by contrast from previous UGI study Healing well post-op from ex lap His diet was advanced to low fiber on 04/02, but then had 1 episode of vomiting which resulted in metallic foreign body getting stuck in the throat He was transferred to the ICU for observation for airway protection and ENT removed foreign body in the throat under direct laryngoscopy on the morning of 04/03 He then had an episode of emesis with either hemoptysis versus hematemesis on the afternoon of 04/03 and again noted on x-ray to have recurrent metallic foreign body in the throat CT soft tissues neck, chest, and abdomen/pelvis performed-fortunately throat foreign body was gone-suspect he swallowed it, and multiple foreign bodies remain in the stomach and bowels. No evidence of perforation -on 04/03, Attempts to get patient EGD to remove the residual metallic foreign bodies persisting in the stomach were unsuccessful both with local GI and calling to [facility] (on divert, no beds available), [facility] (GI and triage medical clerk did not feel transfer was necessary and that general GI could perform the endoscopy), and [facility] felt he would be better served at [facility]. Jail Captain contacted by immigration guard and does not approve transfer to [facility] unless it is a life or situation. At this time, he is stable and it is not an emergency to transfer him. 04/04, reached out to [facility] and spoke with GI Dr. Burdick who also did not feel a transfer was necessary and that his EGD would not be considered high risk and could be performed at our facility by a willing GI doctor. Discussed with Dr. Villalobos who also d/w Dr. Shrestha (vocational guidance counselor george ) who remain in agreement to not scope here at this time. Dr. Villalobos now thinks can continue conservative measures, await for FBs to pass on own, serial xrays. On 04/05, abdominal x-ray again shows even more new foreign bodies with 1 large foreign body in the stomach but is radiopaque and coiled around. Patient admits to hiding objects in his nose since prior to admission and snorting them down into his throat and swallowing them. He told the nurse he thinks the current foreign body is the cord from his headphones. Again discussed with GI and do not suspect this will cause a problem and does not need to be removed by EGD. Fortunately, several of the previous metallic wire like foreign bodies that were in the stomach are now passed out of the stomach into the small intestine. GI recommending ethics consult to discuss appropriateness of continued treatment and procedures in this patient who continues to ingest foreign bodies in an effort of self-harm. Ethics consult completed and appreciated-see Dr. Das's note for details. 04/06-feels like still foreign body in nose-cannot visualize on exam; ENT on 04/07 performed nasopharyngoscopy and this was negative for any foreign body On 04/07-with new high-grade SBO -- s/p repeat ex lap with portion of pulse oximeter removed from distal jejunum 04/08 - s/p EGD by Dr Duval - multiple foreign bodies removed from stomach patient now in four-point restraints, has a spit mask in place, and continues with soft mitts on both hands to prevent him from continuing to ingest more foreign bodies. One-on-one sitter remains in room in addition to multiple correction guards. patient more calm today; I was able to complete an exam. no ingestions fortunately over the last few days. (8) Self-harming behavior: history of such - numerous occasions with various objects, often by way of ingestion as well as insertion of objects in the urethra. Unclear if this is due to psychiatric condition or malingering or anti-social behavior or combo No foreign material, detachable material, small pieces/parts should be in arms raised with patient at any time. This includes drawstrings to close/waistbands, EKG stickers, and any loose material. Patient has a recurrent history of quickly ingesting or placing foreign materials into orifices. (9) Foreign body in urethra: Foreign body in urethra - 03/25 and 03/27 - removal on 2 occasions by [facility] [place] via cystoscopy- Appreciate urology consultation He then poked a hole in his Ruiz catheter and deflated the balloon and pulled it out himself overnight on 03/31 No evidence of trauma to the penis on exam on 04/01 Received ceftriaxone 1 g IV daily empirically x 7 days - abx now d/c recent urine cx negative developed retention 04/02 -- likely due to multiple FB insertions, inflammation, stricture, etc. Pelvic xray 04/02 no radio-opaque FB Ruiz catheter placed again on 04/02 Patient self-removed 04/13 Leave ruiz out - only place back if retaining urine but no issues overnight or today (10) Schizophrenia: Unclear if this is a true diagnosis Jail records only have a diagnosis of antisocial personality disorder Remains on lithium BID (level wnl this admission), Paxil, Remeron, and Haldol Earlier in his stay, increased haldol dose to 10mg HS due to hearing voices. complaining again about the voices. added AM dose of haldol 5mg. this was increased to 10mg qam. see above re: thorazine, etc (11) Depression: meds as above (12) Anxiety: meds as above (13) Microcytic anemia: Fe studies wnl could have thalassemia HEAVY METAL SCREEN negative defer on hemoglobin electrophoresis H/H acceptable (14) DVT prophylaxis: heparin drip Plan I had a lengthy meeting today with nursing administration, risk management, etc regarding this complex case Moving forward we need a care plan for Mr Simon in the event he has further foreign body ingestions, violent behavior, and readmissions Will attempt to call the correction director of medical review tomorrow to discuss discharge care plan total time today including meeting as noted above - 35 min Discharge Plan Discharge Items Patient Disposition: [facility] Facility Reason For Visit: Foreign Body IN STOMACH AND PENIS Discharge Diagnosis: 1. multiple foreign bodies in the stomach & intestines - resolved, s/p exploratory surgery x 2 and multiple EGDs 2. multiple foreign bodies in the bladder s/p cystoscopy x 2 3. small bowel obstruction due to foreign body in the small intestine - s/p Exploratory laparotomy, lysis of adhesions, small bowel enterotomy with removal of foreign body 4. pulmonary emboli 5. post-operative fevers - source uncertain - resolved 6. personality disorder 7. numerous foreign body ingestions 8. question of schizophrenia Activity: Per Instructions section Lifting: No more than 10 pounds Bathing: Keep incision dry Bathing Comment: ok to shower; no baths Non-emergency contact: Primary Care Provider Call non-emergency contact if: you have any medication questions, your symptoms worsen, your wound has increased redness, your wound has increased drainage and your wound pain has increased Follow-up/Referrals: Kalyn ROBERSON [Primary Care Provider] - Diet: Regular Addtl Attending Provider Instructions: Blood Thinner Medication Instructions: Your blood clot condition is typically treated with an anticoagulant. Anticoagulants will thin your blood to help prevent new clots. Your blood thinner is LOVENOX. * You should take your medication exactly as directed. * Never skip a dose. * Never take a double dose. If you miss a dose, take it as soon as you remember. Call your Primary Care doctor if you experience any of the following: * Swelling or Pain in your leg * Sudden, continuous pain deep in a muscle * Pain that worsens when you are active or when you stand still for a long time * Chest Pain * Sudden Shortness of Breath * Rapid or pounding heart beat * Fainting * Dizziness * Cough with blood or bloody sputum * Sweating more than normal * Bruises * Heavy or uncontrolled bleeding * Blood in your urine, stool or vomit * Black or tarry stools * Heavy nose bleeds Caring for Your Self at Home: * Avoid sitting, standing or lying down for long periods without moving your legs and feet * When traveling by car, stop to get out and move around at least once every 3 hours * On long airplane, train or bus rides, get up and move around when possible * If you can't get up, wiggle your toes and tighten your calves to keep your blood moving Blood work orders - CBC, BMP in 5-7 days for stability Addtl Enterprise Application Developer Provider Instructions: Post-Surgical ~Discharge Instructions Activity Recommendations: - lifting limitation: (10 pounds for 6 weeks), - exercise/sex/sports limit: (nonstrenuous for 6 weeks), - driving or machine use limit: (none for 1 week), - Shower/bathe limit: (may shower) Diet: - Resume previous diet SPECIAL CARE INSTRUCTIONS: - May shower. Let water run over area and pat dry. - Leave Dermabond in place. - Call the surgeon's office with any questions or concerns - - (ex. temperature higher than 101 degrees F, excessive bleeding or pain). MEDICATIONS: - Resume previous medications unless instructed otherwise by your surgeon. FOLLOW UP VISIT: - None needed Pending Studies at Discharge: No Stand-Alone Forms: My [facility] Skilled Items Patient informed of condition?: Yes Discharge Level of Care: Other Communicable Disease: No Discharge Prognosis: Stable Lines: None Urinary Catheter: No Medications and DC Order Prescriptions: New acetaminophen 325 mg Tablet 650 mg PO Q4H PRN (Reason: pain) Qty: 30 0RF amoxicillin-pot clavulanate 875-125 mg Tablet 1 tab PO BIDM 5 Days Qty: 10 0RF enoxaparin [Lovenox] 80 mg/0.8 mL Syringe 80 mg subcut Q12H 90 Days Qty: 144 0RF pantoprazole [Protonix] 40 mg tablet,delayed release (DR/EC) 40 mg PO DAILY 30 Days Qty: 30 0RF Continued paroxetine HCl 10 mg Tablet 10 mg PO HS lithium carbonate 300 mg Capsule 300 mg PO BID paroxetine HCl 20 mg Tablet 20 mg PO HS Rx Instructions: CRUSH, TAKE WITH 10MG=30MG mirtazapine 45 mg Tablet 45 mg PO HS Rx Instructions: CRUSH Changed haloperidol 10 mg Tablet 10 mg PO BID Qty: 60 0RF Rx Instructions: CRUSH, TAKE WITH 5 MG TAB polyethylene glycol 3350 [Miralax] 17 gram Powder In Packet 17 g PO DAILY Qty: 30 0RF Discontinued haloperidol [Haldol] 5 mg Tablet 5 mg PO HS Rx Instructions: TAKE WITH 10 MG TAB, CRUSH Discharge Orders: Discharge Order (Routine); Ordered 04/15/22 Ordered By: Sylvain Gore/Other Patient Handouts: Pulmonary Embolism, Soft Vermilion Diet Dc Admission Data Admit Date/Time: 03/29/22 09:34 Attending Provider: Sylvain Loya Admit Provider: Kevin Dumont Primary Care Provider: Kalyn ROBERSON Other Providers: Henri Anderson Jr ; Kevin Dumont ; Anthony Omalley ; Tiago Bateman ; John Wright ; Tani Mendoza Jr ; Jose L Subramanian ; Blake Kerr ; Lurdes Morelos ; Boone Armstrong ; David Trujillo ; Paul Pereira ; Tonja Orantes ; Claudio Shrestha ; Dotty Olivarez ; Amy Zamarripa ; Laurel Ray ; José Luis Paiz Coding Diagnoses Antisocial behavior Aggression R46.89 Antisocial personality disorder F60.2 Small bowel obstruction K56.609 Pulmonary emboli I26.99 Fever R50.9 Foreign body in stomach T18.2XXA Self-harming behavior Foreign body in urethra T19.0XXA Schizophrenia F20.0 Schizophrenia type: paranoid schizophrenia Depression F32.A Depression Type: unspecified Anxiety F41.9 Microcytic anemia D50.9 DVT prophylaxis Z29.9
[2022-04-15] MEDS ORDERED: AMOXICILLIN/CLAVULANATE 875 MG TAB PO SCH (17:00)
== END 2022-04-15 16:07 | DRG 326 ==
LOC: ED 17:46 → SUATTDRO 23:53 → 3E 03-25 00:52 → OR 03-25 00:52 → SUATTDRO 03-25 00:53 → 1E 04-02 21:04 → 3W 04-04 11:22
PROC: M.ESOPH (2022-04-03 07:00)
DX: R04.2 Hemoptysis; E87.6 Hypokalemia; T18.3XXA Foreign body in small intestine, initial encounter; X83.8XXA Intentional self-harm by other specified means, initial encounter; T17.208A Unspecified foreign body in pharynx causing other injury, initial encounter; R44.0 Auditory hallucinations; I27.82 Chronic pulmonary embolism; F20.0 Paranoid schizophrenia; Z72.811 Adult antisocial behavior; S36.438A Laceration of other part of small intestine, initial encounter; K44.9 Diaphragmatic hernia without obstruction or gangrene; R33.9 Retention of urine, unspecified; Z91.52 Personal history of nonsuicidal self-harm; M79.662 Pain in left lower leg; R50.82 Postprocedural fever; M79.661 Pain in right lower leg; Y92.149 Unspecified place in prison as the place of occurrence of the external cause; T19.4XXA Foreign body in penis, initial encounter; Z76.5 Malingerer [conscious simulation]; T19.0XXA Foreign body in urethra, initial encounter; T18.2XXA Foreign body in stomach, initial encounter; Z87.891 Personal history of nicotine dependence; K56.609 Unspecified intestinal obstruction, unspecified as to partial versus complete obstruction; R45.851 Suicidal ideations; D50.9 Iron deficiency anemia, unspecified; E43 Unspecified severe protein-calorie malnutrition; F32.2 Major depressive disorder, single episode, severe without psychotic features; F60.9 Personality disorder, unspecified; F41.9 Anxiety disorder, unspecified

== ENCOUNTER 2022-06-06 16:43 | Observation (INO) ==
--- NOTE | 2022-06-06 19:40 | Emergency Department Note ---
Impression & Plan Foreign body, Foreign body in urethra ADMIT ED Provider Note HPI: The patient is a 22-year-old male with history of schizophrenia, who presents the emergency department from [facility] with report for foreign body. Patient is well-known to this emergency department, has frequent presentations for foreign body insertion into his urethra and rectum. Patient also swallows foreign objects frequently. Today, the patient states that he told the guards that he shoved something up his urethra but he states he just told him this and he did not actually put anything in his urethra. Patient is concerned that he swallowed a plastic medicine 1 week ago and it might be stuck in his rectum now that it is passed. On arrival here to the ED the patient is mildly tachycardic but otherwise hemodynamically stable, is in no acute physical distress on my initial assessment. ROS: -GI: Possible rectal foreign body -: Possible urethral foreign body *10 point review systems was conducted and is otherwise negative unless stated above *Outpatient medications and allergy history reviewed PE: General: Alert HEENT: Normocephalic, trachea midline Eyes: Extraocular eye movement is intact, no scleral erythema Pulmonary: Clear to auscultation bilaterally, no wheezing Cardio: Regular rate and rhythm GI: Abdomen is soft, nontender : No suprapubic tenderness, no evidence of any blood at the urethral meatus, no obvious trauma at the urethral meatus MSK: No evidence of trauma or malformation of the extremities, no edema Skin: No evidence of rash Neuro: Alert, no focal deficits Psychiatric: Cooperative Medical Decision Making: Patient presents the emergency department with concern for ingested foreign body, states that he believes he ate a medicine cup about 1 week ago. Patient also reported a urethral foreign body to staff at the [facility] earlier today but d enies shoving anything in his urethra on my exam. Patient is an inconsistent historian, he does have a history of schizophrenia, has a history of multiple presentations for similar issues in the past therefore CT imaging of the abdomen pelvis was ordered and does show evidence of a possible foreign body with some gas formation in the distal urethra. In addition, multiple foreign bodies are noted within the stomach and bowel. Patient is an overall poor historian, he is unable to tell me what these objects could possibly be. He denies sticking anything in his urethra recently. Patient was unable to provide a urine sample here in the ED, I did discuss the case with on-call urology, LIDA Tafoya, who did evaluate the patient at the bedside, states urology will likely scope the patient tomorrow morning and recommends admission to the medicine service. I also did discuss the patient's presentation with on-call gastroenterology, Dr. Duval, who does not feel that the patient needs emergent endoscopy and is in agreement for consultation and will evaluate the patient tomorrow. Patient will be admitted to the medicine service, [facility] and the patient was admitted in stable condition for inpatient subspecialty consultations. Diagnosis: 1. Urethral foreign body on CT imaging 2. Multiple foreign bodies within the gastrointestinal tract Disposition: Admission Dwain Alamo DO Emergency Medicine Past Med/Surg History Medical History Aggression Antisocial behavior Antisocial personality disorder Anxiety Auditory hallucination Depression Foreign body in stomach Foreign body in urethra Foreign body ingestion H/O swallowed foreign body Malingerer Microcytic anemia Pulmonary emboli Schizophrenia Self-harming behavior Small bowel obstruction Suicidal ideation Surgical History H/O cystoscopy H/O esophagogastroduodenoscopy H/O exploratory laparotomy Social History Smoking Status: Current every day smoker Tobacco Type: Cigarettes Second Hand Exposure: No; Hx Alcohol Use: No Hx Substance Use: No Preferred Language: Chinese Communication Ability: Effective Metal Cleaner Required: No Beliefs That Will Affect Care: Tenriism, Spiritual and Cultural marital status: Single Current Living Situation: Other Current Living Situation Comment: [facility]. How many Children do You have: 0 Feels Safe at Home: Yes Assistive Devices: None Allergies Allergies Allergy/AdvReac Type Severity Reaction Status Date / Time No Known Allergies Allergy Verified 06/06/22 21:27 Home Meds Home Medications Medication Instructions Recorded Confirmed lithium carbonate 300 mg capsule 300 mg PO BID 03/25/22 06/06/22 mirtazapine 45 mg tablet 45 mg PO HS 03/25/22 06/06/22 paroxetine HCl 10 mg tablet 10 mg PO HS 03/25/22 06/06/22 paroxetine HCl 20 mg tablet 20 mg PO HS 03/25/22 06/06/22 apixaban 5 mg tablet (Eliquis) 5 mg PO BID 05/31/22 06/06/22 aripiprazole 5 mg tablet 5 mg PO DAILY 05/31/22 06/06/22 docusate sodium 100 mg tablet 100 mg PO BID 05/31/22 06/06/22 haloperidol 5 mg tablet 5 mg PO HS 05/31/22 06/06/22 lactulose 10 gram/15 mL oral 30 ml PO DAILY PRN Loose Stool 05/31/22 06/06/22 solution Previous Rx's Medication Instructions Recorded acetaminophen 325 mg tablet 650 mg PO Q4H PRN pain #30 tabs 04/15/22 haloperidol 10 mg tablet 10 mg PO BID #60 tabs 04/15/22 Results & Data (ED) Vital Signs Vital Signs - 24 hr 06/06/22 17:00 06/06/22 19:50 06/06/22 21:00 Temperature 36.6 C Temperature Source Temporal Artery Scan Pulse Rate 113 H Pulse Rate [Left Finger] 99 H 107 H Respiratory Rate 18 20 Blood Pressure 124/73 Blood Pressure [Left Arm] 131/92 141/95 H Blood Pressure Mean 90 Blood Pressure Mean [Left Arm] 105 110 Blood Pressure Position Sitting Pulse Oximetry 98 99 98 Oxygen Delivery Method Room Air Room Air Room Air Sepsis Recent Fever Within 48 Hours No Sepsis New/Unexplained Change in Mental Status No Sepsis Action Taken by Nursing No Action Required Laboratory Data Result diagrams: 06/06/22 21:34 06/06/22 21:34 Lab Results 06/06/22 06/06/22 06/06/22 Range/Units 21:34 21:34 21:34 WBC 11.44 H (4.8-10.8) K/ul RBC 4.57 L (4.63-6.08) M/uL Hgb 11.1 L (14.0-18.0) g/dl Hct 35.2 L (40.1-51.0) % MCV 77.0 L (80.0-100.0) fL MCH 24.3 L (25.0-34.0) pg MCHC 31.5 L (32.0-36.0) g/dL RDW Std Deviation 40.2 (36.4-46.3) fL RDW Coeff of Bassem 14.6 H (11.5-14.5) % Plt Count 198 (130-400) K/uL MPV 10.9 (9.4-12.4) fL Immature Gran % (Auto) 0.3 % Neut % (Auto) 76.6 % Lymph % (Auto) 13.3 % Hunt % (Auto) 9.4 % Eos % (Auto) 0.2 % Baso % (Auto) 0.2 % Neut # (Auto) 8.78 H (1.4-6.5) K/uL Lymph # (Auto) 1.52 (1.2-3.4) K/uL Hunt # (Auto) 1.07 H (0.24-0.82) K/uL Eos # (Auto) 0.02 (0-0.50) K/uL Baso # (Auto) 0.02 (0-0.2) K/uL Immature Gran # (Auto) 0.03 H (0.00-0.02) K/uL Sodium 137 (136-145) mmol/L Potassium 3.6 (3.5-5.1) mmol/L Chloride 103 (98-107) mmol/L Carbon Dioxide 26 (21-32) mmol/L Anion Gap 8 (3-11) BUN 16 (6-23) mg/dl Creatinine 1.11 (0.6-1.4) mg/dl Est Cr Clr Drug Dosing 117.0 ml/min Est GFR ( Amer) 108.7 ml/min Est GFR (Non-Af Amer) 93.8 ml/min BUN/Creatinine Ratio 14.4 (10-20) Glucose 93 (70-99(Fasting)) mg/dl Calcium 9.1 (8.5-10.1) mg/dl Total Bilirubin 0.7 (0.2-1.0) mg/dl AST 15 (13-39) U/L ALT 38 (7-52) U/L Alkaline Phosphatase 67 (34-104) U/L Total Protein 7.5 (6.0-8.3) gm/dl Albumin 4.2 (3.4-5.0) gm/dl Globulin 3.3 (2.5-4.0) gm/dl Albumin/Globulin Ratio 1.3 (0.9-2) Lipase 31 (11-82) U/L SARS-CoV-2, RNA, NAAT NEGATIVE (NEGATIVE) Administered Medications Docusate Sodium (Docusate Sodium 100 Mg Cap) 100 mg PO BID [facility] Stop: 07/07/22 08:59 Last Admin: 06/07/22 00:03 Dose: 100 mg Documented By: URSULA Haloperidol (Haloperidol 5 Mg Tab) 5 mg PO HS [facility] Stop: 07/07/22 20:59 Last Admin: 06/07/22 00:02 Dose: 5 mg Documented By: URSULA Haloperidol (Haloperidol 5 Mg Tab) 10 mg PO BID [facility] Stop: 07/07/22 08:59 Last Admin: 06/07/22 00:01 Dose: 10 mg Documented By: URSULA Sodium Chloride (Nss 1000ml) 1,000 mls @ 125 mls/hr IV .Q8H [facility] Stop: 07/06/22 22:44 Last Admin: 06/06/22 22:45 Dose: 125 mls/hr Documented By: URSULA [place] Carbonate ([place] Carbonate 300 Mg Tab) 300 mg PO BID [facility] Stop: 07/07/22 08:59 Last Admin: 06/07/22 00:02 Dose: 300 mg Documented By: URSULA Mirtazapine (Mirtazapine Soltab 15 Mg) 45 mg PO [facility] Stop: 07/07/22 20:59 Last Admin: 06/07/22 00:02 Dose: 45 mg Documented By: URSULA Paroxetine HCl (Paroxetine Hcl 10 Mg Tab) 30 mg PO [facility] Stop: 07/07/22 20:59 Last Admin: 06/07/22 00:03 Dose: 30 mg Documented By: URSULA Imaging Data Radiologist's Impression: Abdomen/Pelvis CT 06/06/22 19:38 CT SCAN OF THE ABDOMEN AND PELVIS WITHOUT IV CONTRAST CLINICAL HISTORY: Foreign bodies in the penis and rectum. COMPARISON STUDY: Abdominal CT dated 05/31/2022. Pelvic CT dated 04/16/2022. TECHNIQUE: CT scan of the abdomen and pelvis is performed from the lung bases to the proximal femora. Images are reviewed in the axial, sagittal, and coronal planes. IV contrast was not administered for this examination. A dose lowering technique was utilized adhering to the principles of ALARA. CT DOSE: 604.72 mGycm FINDINGS: Lung bases: The heart is normal in size noting a small pericardial effusion. There are trace pleural effusions with dependent atelectasis. Liver: The unenhanced liver is normal in size, contour, and attenuation. There is no intrahepatic biliary ductal dilatation. Gallbladder: Unremarkable. Spleen: Normal in size and attenuation. Pancreas: Unremarkable. Adrenal glands: Unremarkable. Kidneys: The unenhanced kidneys are normal in size and without hydronephrosis. No renal calculi are identified. There is no evidence of contour deforming mass lesion. Abdominal vasculature: The abdominal aorta is normal in course and caliber. Stomach and bowel: Postsurgical change is noted in the stomach. There is mild colonic fecal retention. No bowel obstruction is seen. A metallic foreign body in the distal stomach is seen on image #156. 2 radiodense foreign bodies are suggested within the cecum on images #292 and #318. A tiny metallic foreign body in the distal descending colon is seen on image #279. No rectal foreign body is identified as clinically queried. The appendix is well-visualized and normal. Peritoneum: There is no intraperitoneal free air or abdominal ascites. A midline surgical scar is noted. Lymphadenopathy: None. Pelvic viscera: There is a tiny focus of gas within the bladder lumen. The bladder is otherwise normal as imaged. The prostate and seminal vesicles are normal as visualized. Approximately 1.6 cm gas-containing foreign body suggested within the distal urethra on axial image #431. This is located approximately 1.5 cm deep to the meatus. Skeletal structures: No lytic or blastic lesions are seen. IMPRESSION: 1. A gas containing foreign body is identified in the distal urethra as above. 2. There is a metallic foreign body in the distal stomach and at least 3 foreign bodies within the colon as above. These are new from 05/31/2022. No radiodense foreign body is seen in the rectum. 3. Trace pleural effusions. 4. No acute infectious or inflammatory findings are seen in the abdomen or pelvis. 5. Additional findings as above. ACT 112: Negative or not required by law. Electronically signed by: Henrique Slaughter M.D. 06/06/2022 8:37 PM Discharge Plan Visit Data Chief Complaint: Foreign Body Stated Complaint: FOREIGN OBJECT IN URETHRA ED Provider: Dwain Alamo Discharge Problem: Foreign body, Foreign body in urethra Patient Disposition: Admitted As Inpatient Condition: Good Discharge Instructions Interventions: ED Discharge Assessment Last Done: 06/06/22 22:52
--- NOTE | 2022-06-06 20:39 | CT Scan Report ---
CT SCAN OF THE ABDOMEN AND PELVIS WITHOUT IV CONTRAST CLINICAL HISTORY: Foreign bodies in the penis and rectum. COMPARISON STUDY: Abdominal CT dated 05/31/2022. Pelvic CT dated 04/16/2022. TECHNIQUE: CT scan of the abdomen and pelvis is performed from the lung bases to the proximal femora. Images are reviewed in the axial, sagittal, and coronal planes. IV contrast was not administered for this examination. A dose lowering technique was utilized adhering to the principles of ALARA. CT DOSE: 604.72 mGycm FINDINGS: Lung bases: The heart is normal in size noting a small pericardial effusion. There are trace pleural effusions with dependent atelectasis. Liver: The unenhanced liver is normal in size, contour, and attenuation. There is no intrahepatic kym iary ductal dilatation. Gallbladder: Unremarkable. Spleen: Normal in size and attenuation. Pancreas: Unremarkable. Adrenal glands: Unremarkable. Kidneys: The unenhanced kidneys are normal in size and without hydronephrosis. No renal calculi are i dentified. There is no evidence of contour deforming mass lesion. Abdominal vasculature: The abdominal aorta is normal in course and caliber. Stomach and bowel: Postsurgical change is noted in the stomach. There is mild colonic fecal retention . No bowel obstruction is seen. A metallic foreign body in the distal stomach is seen on image #156. 2 radiodense foreign bodies are suggested within the cecum on images #292 and #318. A tiny metallic f oreign body in the distal descending colon is seen on image #279. No rectal foreign body is identifie d as clinically queried. The appendix is well-visualized and normal. Peritoneum: There is no intraperitoneal free air or abdominal ascites. A midline surgical scar is not ed. Lymphadenopathy: None. Pelvic viscera: There is a tiny focus of gas within the bladder lumen. The bladder is otherwise armin l as imaged. The prostate and seminal vesicles are normal as visualized. Approximately 1.6 cm gas-con taining foreign body suggested within the distal urethra on axial image #431. This is located approxi mately 1.5 cm deep to the meatus. Skeletal structures: No lytic or blastic lesions are seen. IMPRESSION: 1. A gas containing foreign body is identified in the distal urethra as above. 2. There is a metallic foreign body in the distal stomach and at least 3 foreign bodies within the co karen as above. These are new from 05/31/2022. No radiodense foreign body is seen in the rectum. 3. Trace pleural effusions. 4. No acute infectious or inflammatory findings are seen in the abdomen or pelvis. 5. Additional findings as above. ACT 112: Negative or not required by law. Electronically signed by: Henrique Slaughter M.D. 06/06/2022 8:37 PM
[2022-06-06 21:46] LABS: Basophils # (auto) 0.02 K/uL (0-0.2); Basophils % (auto) 0.2 %; Eosinophils # (auto) 0.02 K/uL (0-0.50); Eosinophils % (auto) 0.2 %; Hematocrit (blood only) 35.2 % (40.1-51.0); Hemoglobin 11.1 g/dl (14.0-18.0); Immature Granulocytes # (auto) 0.03 K/uL (0.00-0.02); Immature Granulocytes % (auto) 0.3 %; Lymphocytes # (auto) 1.52 K/uL (1.2-3.4); Lymphocytes % (auto) 13.3 %; Mean Corpuscular Hemoglobin 24.3 pg (25.0-34.0); Mean Corpuscular Hgb Conc 31.5 g/dL (32.0-36.0); Mean Platelet Volume 10.9 fL (9.4-12.4); Monocytes # (auto) 1.07 K/uL (0.24-0.82); Monocytes % (auto) 9.4 %; Neutrophils # (auto) 8.78 K/uL (1.4-6.5); Neutrophils % (auto) 76.6 %; Platelet Count 198 K/uL (130-400); RDW Coefficient of Variation 14.6 % (11.5-14.5); RDW Standard Deviation 40.2 fL (36.4-46.3); Red Blood Count 4.57 M/uL (4.63-6.08); White Blood Count 11.44 K/ul (4.8-10.8)
--- NOTE | 2022-06-06 21:55 | Urology Consultation ---
Date of Consultation June 06, 2022 Assessment & Plan (1) Foreign body in urethra: I discussed with the treating emergency room physician. He is having the patient admitted on the hospitalist service. We recommend proceeding as follows: Make patient n.p.o. after midnight this evening I discussed the case with my attending physician, Dr. Montaño and he notes that on CAT scan the foreign body does appear distal. We have tentatively booked the patient for cystoscopy in the operating room tomorrow but he may attempt manual removal at the bedside, but this will depend on his exam I have discussed with the patient and he is in agreement History of Present Illness Reason for Consultation: Urethral foreign body History of Present Illness This is a 22-year-old male who is currently incarcerated. He has a previous history of ingesting foreign bodies orally as well as inserting foreign bodies into his urethra. His records were reviewed and he has had at least 3 cystosc opies that this year for removal of foreign bodies. He did have cystoscopies on January 10 of this year, March 25 of this year, and March 27 of this yearall for removal of foreign bodies. The patient notes that he has not recently placed any foreign bodies in his urethra or ingested any foreign bodies orally but [facility] he complained of having difficulty urinating which prompted the staff at the facility to obtain an x-ray. According to the patient they thought that they saw a foreign body in the patient's urethra on x-ray which prompted a visit to the emergency department. Again the patient claims that he did not ingest orally any foreign bodies or place anything in his urethra. He does report that he has been having some difficulty urinating noting that he has a decreased urinary stream, difficulty starting urination, and the feeling as though he cannot empty his bladder. Patient says that he has not urinated very well in approximately 24 hours noting that he is only been able to dribble out small amounts of urine. He currently feels as though he does need to urinate. He denies any fevers, shakes, or chills. He denies any back pain. In the emergency department patient had labs and imaging which I independently reviewed. CT scan of the abdomen and pelvis showed the patient had a gas containing foreign body identified in the distal urethra. There is also noted to be a metallic foreign body in the distal stomach and least 3 foreign bodies within the colon. No foreign bodies that were radiopaque were noted in the rectum. Labs included a CBC were white blood cell count was 11.4. Hemoglobin and hematocrit are 11.1 and 35.2. Platelet count was noted to be normal. Chemistry profile was pending at the time of this dictation. A COVID test was pending. A urinalysis has been ordered but the patient has been unable to provide a urine specimen. While in the emergency department the patient was bladder scanned in the scanner revealed the patient had approximate 400 cc of urine in his bladder. At the time of my interview he was noted to be comfortable, and was in no distress. Allergies Allergy/AdvReac Type Severity Reaction Status Date / Time No Known Allergies Allergy Verified 06/06/22 21:27 Home Medications Medication Instructions Recorded Confirmed Type lithium carbonate 300 mg capsule 300 mg PO BID 03/25/22 06/06/22 History mirtazapine 45 mg tablet 45 mg PO HS 03/25/22 06/06/22 History paroxetine HCl 10 mg tablet 10 mg PO HS 03/25/22 06/06/22 History paroxetine HCl 20 mg tablet 20 mg PO HS 03/25/22 06/06/22 History acetaminophen 325 mg tablet 650 mg PO Q4H PRN pain #30 tabs 04/15/22 06/06/22 Rx haloperidol 10 mg tablet 10 mg PO BID #60 tabs 04/15/22 06/06/22 Rx apixaban 5 mg tablet (Eliquis) 5 mg PO BID 05/31/22 06/06/22 History aripiprazole 5 mg tablet 5 mg PO DAILY 05/31/22 06/06/22 History docusate sodium 100 mg tablet 100 mg PO BID 05/31/22 06/06/22 History haloperidol 5 mg tablet 5 mg PO HS 05/31/22 06/06/22 History lactulose 10 gram/15 mL oral 30 ml PO DAILY PRN Loose Stool 05/31/22 06/06/22 History solution Patient History Medical History Aggression Antisocial behavior Antisocial personality disorder Anxiety Auditory hallucination Depression Foreign body in stomach Foreign body in urethra Foreign body ingestion H/O swallowed foreign body Malingerer Microcytic anemia Pulmonary emboli Schizophrenia Self-harming behavior Small bowel obstruction Suicidal ideation Surgical History H/O cystoscopy H/O esophagogastroduodenoscopy H/O exploratory laparotomy Social History Smoking Status: Never smoker Tobacco Type: Cigarettes Second Hand Exposure: No; Do You Dip or Chew Tobacco: No; Tobacco Cessation Education Requested by Patient: No Hx Alcohol Use: No Hx Substance Use: No Preferred Language: Moroccan Communication Ability: Effective Melt Room Operator Required: No Beliefs That Will Affect Care: None marital status: Single Current Living Situation: Other Current Living Situation Comment: [facility]. How many Children do You have: 0 Other Information That Helps Us Care for You: No Feels Safe at Home: Yes Safety Concerns: Feels Safe At This Time Assistive Devices: None Review of Systems Constitutional: no fever and no chills Eyes: no diplopia Ear, Nose, Mouth, Throat: no ear pain Respiratory: no cough and no dyspnea Cardiovascular: no chest pain Gastrointestinal: no abdominal pain, no nausea and no vomiting Genitourinary: + as per Subjective / HPI Musculoskeletal: no back pain Integumentary: no rash Neurologic: no localized weakness Physical Exam Constitutional: WD/WN, vitals as above Eyes: no conjunctival abnormality ENMT: Ears: + hearing impairment; no external ear abnormality Mouth not examined as patient had a restraint device covering his mouth. Neck: trachea midline Respiratory: normal respiratory effort; no respiratory distress and no labored breathing Cardiovascular: Rate/Rhythm: regular rate and regular rhythm Gastrointestinal (Abdomen): Abdomen soft, nonrigid, nondistended, nontender to palpation. There is no rebound tenderness or guarding. Patient had a well- healed midline incision. Musculoskeletal: No calf tenderness, no lower extremity edema. Skin: + rash Neurologic: moves all extremities Psychiatric: Orientation: alert and oriented x 3 Affect: + flat affect Results & Data ([facility]) Vital Signs (Past 12 Hours) Vital Signs Temp Pulse Pulse Resp BP BP Pulse Ox 06/06/22 19:50 99 H 131/92 99 06/06/22 17:00 36.6 C 113 H 18 124/73 98 O2 Del Method 06/06/22 19:50 Room Air 06/06/22 17:00 Room Air PG Care Time/CCT Total # of Minutes Spent Total Time Spent with Patient: Total time spent is greater than 50% in coordination of care (as documented) at patient's floor/unit and/or counseling patient: Coding Level of Care Code 91285 Inpt Consult Level 5 Diagnoses Foreign body in urethra T19.0XXA
[2022-06-06 22:05] LABS: Albumin Globulin Ratio 1.3 (0.9-2); Albumin Level 4.2 gm/dl (3.4-5.0); BUN Creatinine Ratio 14.4 (10-20); Bilirubin,Total 0.7 mg/dl (0.2-1.0); Calcium 9.1 mg/dl (8.5-10.1); Est GFR (African American) 108.7 ml/min; Est GFR (Non-African American) 93.8 ml/min; Globulin 3.3 gm/dl (2.5-4.0); Potassium 3.6 mmol/L (3.5-5.1); Total Protein 7.5 gm/dl (6.0-8.3)
[2022-06-06] MEDS: SODIUM CHLORIDE 0.9% 1000ML 1,000 ML IV SCH (22:45)
--- NOTE | 2022-06-06 22:50 | History & Physical Report ---
Date of Service June 06, 2022 Assessment & Plan (1) Foreign body in urethra: Plan: 22yo male resident of the local longterm with PMHx self harming behavior, malingering, previous placement of foreign bodies in the rectum, urethra and stomach, anxiety, schizophrenia, auditory hallucinations and depression. 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 Chronic h/o ingesting foreign objects and placing objects in urethra/rectum. Denies he put anything in his urethra/rectum this time. Thinks he may have swallowed some plastic last week. -CT A/P: gas containing foreign body is identified in the distal urethra, metal lic foreign body in the distal stomach and at least 3 foreign bodies within the colon -Urology consulted: NPO, cystoscopy in am if unable to remove foreign body manually from urethra -GI consulted: possible ?colonoscopy for foreign body removal, will monitor for now -mild leukocytosis, suspect from trauma. No indication for abx at this time. -UA when able to collect with reflex culture -NPO, maintenance IVF -hold home eliquis -tylenol for pain #Schizophrenia #Anxiety/depression -chronic psych history -cont. home abilify, haldol, remeron, paroxetine, lithium #h/o pulmonary emboli -hold home eliquis in preparation for possible procedure(s) in am DVT ppx: SCDs, hold home Eliquis for procedure in am FEN/GI: NPO Code Status: Full Dispo: med surg (2) Foreign body of rectum: (3) Schizophrenia: (4) Chronic anemia: History of Present Illness Chief Complaint: foreign body ingestion, foreign body in urethra Primary Care Provider: DA Mccain 22yo male resident of the local longterm with PMHx self harming behavior, malingering, previous placement of foreign bodies in the rectum, urethra and stomach, anxiety, schizophrenia, auditory hallucinations and depression. The patient states that he told the guards that he shoved something up his urethra but he says he just told him this and he did not actually put anything in his urethra. Patient is also concerned that he swallowed a plastic medicine 1 week ago and it might be stuck in his rectum now. Last BM 7 days ago. Last void was at 10pm last night. Complains of mild abdominal pain. Otherwise denies fevers, chills, fatigue, chest pain, sob, N/V. Allergies Allergy/AdvReac Type Severity Reaction Status Date / Time No Known Allergies Allergy Verified 06/06/22 21:27 Home Medications Medication Instructions Recorded Confirmed Type lithium carbonate 300 mg capsule 300 mg PO BID 03/25/22 06/06/22 History mirtazapine 45 mg tablet 45 mg PO HS 03/25/22 06/06/22 History paroxetine HCl 10 mg tablet 10 mg PO HS 03/25/22 06/06/22 History paroxetine HCl 20 mg tablet 20 mg PO HS 03/25/22 06/06/22 History acetaminophen 325 mg tablet 650 mg PO Q4H PRN pain #30 tabs 04/15/22 06/06/22 Rx haloperidol 10 mg tablet 10 mg PO BID #60 tabs 04/15/22 06/06/22 Rx apixaban 5 mg tablet (Eliquis) 5 mg PO BID 05/31/22 06/06/22 History aripiprazole 5 mg tablet 5 mg PO DAILY 05/31/22 06/06/22 History docusate sodium 100 mg tablet 100 mg PO BID 05/31/22 06/06/22 History haloperidol 5 mg tablet 5 mg PO HS 05/31/22 06/06/22 History lactulose 10 gram/15 mL oral 30 ml PO DAILY PRN Loose Stool 05/31/22 06/06/22 History solution Past Med/Surg History Medical History Aggression Antisocial behavior Antisocial personality disorder Anxiety Auditory hallucination Depression Foreign body in stomach Foreign body in urethra Foreign body ingestion H/O swallowed foreign body 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 How many Children do You have: 0 Feels Safe at Home: Yes Assistive Devices: None Review of Systems Review of Systems: All systems reviewed & are unremarkable except as noted in HPI & below Physical Exam Physical Exam: Constitutional: Well-developed, well-nourished patient, in no acute distress, pleasant. Vitals as above. HEENT: No scleral injection or discharge. Moist mucous membranes. Neck: Supple. Trachea midline. Lungs: CTAB Cardiac: RRR. No murmurs.No extremity edema. Abdomen: Bowel sounds present. Soft and nondistended.Mild epigastric and LUQ tenderness. No guarding. No hepatosplenomegaly. MSK: No cyanosis or clubbing. Skin: No rashes, warm, dry. Neurologic: Grossly intact cranial nerves : urethral meatus with some mild white discharge and mild tenderness of penile head. No signs of active infection. Results & Data Results & Data ([facility]) Vital Signs (Past 12 Hours) Vital Signs Temp Pulse Pulse Resp BP BP Pulse Ox 06/06/22 21:00 107 H 20 141/95 H 98 06/06/22 19:50 99 H 131/92 99 06/06/22 17:00 36.6 C 113 H 18 124/73 98 O2 Del Method 06/06/22 21:00 Room Air 06/06/22 19:50 Room Air 06/06/22 17:00 Room Air Laboratory Results Laboratory Results WBC 11.44 K/ul (4.8-10.8) H 06/06/22 21:34 RBC 4.57 M/uL (4.63-6.08) L 06/06/22 21:34 Hgb 11.1 g/dl (14.0-18.0) L 06/06/22 21:34 Hct 35.2 % (40.1-51.0) L 06/06/22 21:34 MCV 77.0 fL (80.0-100.0) L 06/06/22 21:34 MCH 24.3 pg (25.0-34.0) L 06/06/22 21:34 MCHC 31.5 g/dL (32.0-36.0) L 06/06/22 21:34 RDW Std Deviation 40.2 fL (36.4-46.3) 06/06/22 21:34 RDW Coeff of Bassem 14.6 % (11.5-14.5) H 06/06/22 21:34 Plt Count 198 K/uL (130-400) 06/06/22 21:34 MPV 10.9 fL (9.4-12.4) 06/06/22 21:34 Immature Gran % (Auto) 0.3 % 06/06/22 21:34 Neut % (Auto) 76.6 % 06/06/22 21:34 Lymph % (Auto) 13.3 % 06/06/22 21:34 [place] % (Auto) 9.4 % 06/06/22 21:34 Eos % (Auto) 0.2 % 06/06/22 21:34 Baso % (Auto) 0.2 % 06/06/22:34 Neut # (Auto) 8.78 K/uL (1.4-6.5) H 06/06/22 21:34 Lymph # (Auto) 1.52 K/uL (1.2-3.4) 06/06/22 21:34 [place] # (Auto) 1.07 K/uL (0.24-0.82) H 06/06/22 21:34 Eos # (Auto) 0.02 K/uL (0-0.50) 06/06/22 21:34 Baso # (Auto) 0.02 K/uL (0-0.2) 06/06/22 21:34 Immature Gran # (Auto) 0.03 K/uL (0.00-0.02) H 06/06/22 21:34 Sodium 137 mmol/L (136-145) 06/06/22 21:34 Potassium 3.6 mmol/L (3.5-5.1) 06/06/22 21:34 Chloride 103 mmol/L (98-107) 06/06/22 21:34 Carbon Dioxide 26 mmol/L (21-32) 06/06/22 21:34 Anion Gap 8 (3-11) 06/06/22 21:34 BUN 16 mg/dl (6-23) 06/06/22 21:34 Creatinine 1.11 mg/dl (0.6-1.4) 06/06/22 21:34 Est Cr Clr Drug Dosing 117.0 ml/min 06/06/22 21:34 Est GFR ( Amer) 108.7 ml/min 06/06/22 21:34 Est GFR (Non-Af Amer) 93.8 ml/min 06/06/22 21:34 BUN/Creatinine Ratio 14.4 (10-20) 06/06/22 21:34 Glucose 93 mg/dl (70-99(Fasting)) 06/06/22 21:34 Calcium 9.1 mg/dl (8.5-10.1) 06/06/22 21:34 Total Bilirubin 0.7 mg/dl (0.2-1.0) 06/06/22 21:34 AST 15 U/L (13-39) 06/06/22 21:34 ALT 38 U/L (7-52) 06/06/22 21:34 Alkaline Phosphatase 67 U/L (34-104) 06/06/22 21:34 Total Protein 7.5 gm/dl (6.0-8.3) 06/06/22 21:34 Albumin 4.2 gm/dl (3.4-5.0) 06/06/22 21:34 Globulin 3.3 gm/dl (2.5-4.0) 06/06/22 21:34 Albumin/Globulin Ratio 1.3 (0.9-2) 06/06/22 21:34 Lipase 31 U/L (11-82) 06/06/22 21:34 SARS-CoV-2, RNA, NAAT NEGATIVE (NEGATIVE) 06/06/22 21:34 Impressions Abdomen/Pelvis CT 06/06/22 19:38 CT SCAN OF THE ABDOMEN AND PELVIS WITHOUT IV CONTRAST CLINICAL HISTORY: Foreign bodies in the penis and rectum. COMPARISON STUDY: Abdominal CT dated 05/31/2022. Pelvic CT dated 04/16/2022. TECHNIQUE: CT scan of the abdomen and pelvis is performed from the lung bases to the proximal femora. Images are reviewed in the axial, sagittal, and coronal planes. IV contrast was not administered for this examination. A dose lowering technique was utilized adhering to the principles of ALARA. CT DOSE: 604.72 mGycm FINDINGS: Lung bases: The heart is normal in size noting a small pericardial effusion. There are trace pleural effusions with dependent atelectasis. Liver: The unenhanced liver is normal in size, contour, and attenuation. There is no intrahepatic biliary ductal dilatation. Gallbladder: Unremarkable. Spleen: Normal in size and attenuation. Pancreas: Unremarkable. Adrenal glands: Unremarkable. Kidneys: The unenhanced kidneys are normal in size and without hydronephrosis. No renal calculi are identified. There is no evidence of contour deforming mass lesion. Abdominal vasculature: The abdominal aorta is normal in course and caliber. Stomach and bowel: Postsurgical change is noted in the stomach. There is mild colonic fecal retention. No bowel obstruction is seen. A metallic foreign body in the distal stomach is seen on image #156. 2 radiodense foreign bodies are suggested within the cecum on images #292 and #318. A tiny metallic foreign body in the distal descending colon is seen on image #279. No rectal foreign body is identified as clinically queried. The appendix is well-visualized and normal. Peritoneum: There is no intraperitoneal free air or abdominal ascites. A midline surgical scar is noted. Lymphadenopathy: None. Pelvic viscera: There is a tiny focus of gas within the bladder lumen. The bladder is otherwise normal as imaged. The prostate and seminal vesicles are normal as visualized. Approximately 1.6 cm gas-containing foreign body suggested within the distal urethra on axial image #431. This is located approximately 1.5 cm deep to the meatus. Skeletal structures: No lytic or blastic lesions are seen. IMPRESSION: 1. A gas containing foreign body is identified in the distal urethra as above. 2. There is a metallic foreign body in the distal stomach and at least 3 foreign bodies within the colon as above. These are new from 05/31/2022. No radiodense foreign body is seen in the rectum. 3. Trace pleural effusions. 4. No acute infectious or inflammatory findings are seen in the abdomen or pelvis. 5. Additional findings as above. ACT 112: Negative or not required by law. Electronically signed by: Henrique Slaughter M.D. 06/06/2022 8:37 PM Code Status & VTE Plan VTE Prophylaxis Plan VTE Prophylaxis will be ordered: Yes Supervising Physician Co-Signing Physician Notes Attending addendum: I have physically seen this patient, have supervised the medical residents activities, and agree with the H&P unless as otherwise noted. Assessment and Plan: Urethral foreign body- Urology to perform procedure in a.m. GI foreign bodies- GI to consult, no indication for procedure at this time Otherwise as before, with multiple previous admissions for same Resident Activity Tracking Resident Involvement: Resident Care Provided Care Provided: Adult Hospital Medicine (1) Schizophrenia Schizophrenia type: unspecified Qualified Code(s): F20.9 - Schizophrenia, unspecified
[2022-06-06] MEDS ORDERED: ACETAMINOPHEN 1,000 MG/100 ML VIAL IV PRN (23:10)
[2022-06-07] MEDS: haloperidoL 5 MG TAB PO SCH ×2 (00:01→11:46)
[2022-06-07] MEDS: LITHIUM CARBONATE 300 MG TAB PO SCH ×2 (00:02→11:46)
[2022-06-07] MEDS: DOCUSATE SODIUM 100 MG CAP PO SCH ×2 (00:03→11:46)
[2022-06-07] MEDS: SODIUM CHLORIDE 0.9% 1000ML 1,000 ML IV SCH (07:18)
[2022-06-07 07:38] LABS: Appearance Urine Clear (Clear); Bacteria Urine Automated 1+ (Negative); Bilirubin Urine Negative (Negative); Blood Urine 1+ (Negative); Cast Urine Automated 0 /lpf (0-5); Color Urine Yellow; Epithelial Cell Urine Auto 0-5 /lpf (0-5); Glucose Urine UA Negative (Negative); Ketones Urine Negative (Negative); Leukocyte Esterase Urine 2+ (Negative); Nitrite Urine Positive (Negative); Protein Urine Negative (Negative); Specific Gravity Urine 1.008 (1.000-1.030); Urobilinogen Urine Negative (Negative); WBC Urine Automated >30 /hpf (0-5)
[2022-06-07 07:56] LABS: Basophils # (auto) 0.02 K/uL (0-0.2); Basophils % (auto) 0.2 %; Eosinophils # (auto) 0.02 K/uL (0-0.50); Eosinophils % (auto) 0.2 %; Hematocrit (blood only) 35.1 % (40.1-51.0); Hemoglobin 10.9 g/dl (14.0-18.0); Immature Granulocytes # (auto) 0.04 K/uL (0.00-0.02); Immature Granulocytes % (auto) 0.4 %; Lymphocytes # (auto) 1.23 K/uL (1.2-3.4); Mean Corpuscular Hgb Conc 31.1 g/dL (32.0-36.0); Mean Corpuscular Volume 77.1 fL (80.0-100.0); Mean Platelet Volume 11.2 fL (9.4-12.4); Monocytes # (auto) 1.22 K/uL (0.24-0.82); Monocytes % (auto) 10.9 %; Neutrophils # (auto) 8.65 K/uL (1.4-6.5); Neutrophils % (auto) 77.3 %; Platelet Count 195 K/uL (130-400); RDW Coefficient of Variation 14.7 % (11.5-14.5); RDW Standard Deviation 40.9 fL (36.4-46.3); Red Blood Count 4.55 M/uL (4.63-6.08); White Blood Count 11.18 K/ul (4.8-10.8)
[2022-06-07] MEDS ORDERED: ARIPiprazole 5 MG TAB PO SCH (09:00)
--- NOTE | 2022-06-07 09:02 | Urology Progress Note ---
Date of Service June 07, 2022 Assessment & Plan (1) Foreign body in urethra: Plan Suspected foreign body based on CT Not palpable on exam today, I did probe the urethra utilizing DeBakey forceps, was able to in chart these at least 5 cm with feeling no resistance or foreign material I then performed a bedside cystoscopy The cystoscope was advanced per urethra identifying healthy-appearing urethra mucosa with no foreign bodies. I passed through the sphincter and prostate whi ch were both healthy and appropriate. Inspection of the bladder was unremarkable with no foreign bodies within the bladder. I withdrew the scope and the patient tolerated the procedure very well If he had a foreign body on arrival, he is now subsequently passed and he is currently voiding adequately. No further work-up Admission and Anticipated Discharge Date Admission Date: June 06, 2022 Subjective Patient able to void [id number] cc of clear urine output Is of small mount of blood present on his underwear this morning, he reports that he has some pain He denies placing anything in his urethra Physical Exam Physical Exam: No palpable foreign body along the urethral length Results & Data ([facility]) Vital Signs (Past 12 Hours) Vital Signs Temp Pulse Pulse Resp BP BP Pulse Ox 06/07/22 07:34 36.9 C 89 14 131/72 99 06/06/22 23:19 06/06/22 23:19 06/06/22 23:19 06/06/22 23:19 37 C 90 14 127/72 98 06/06/22 23:19 37 C 90 14 127/72 98 06/06/22 22:52 88 19 136/74 98 Pulse Ox O2 Del Method O2 Del Method 06/07/22 07:34 Room Air 06/06/22 23:19 Room Air 06/06/22 23:19 Room Air 06/06/22 23:19 98 Room Air 06/06/22 23:19 Room Air 06/06/22 23:19 Room Air 06/06/22 22:52 Room Air PG Care Time/CCT Total # of Minutes Spent Total Time Spent with Patient: Total time spent is greater than 50% in coordination of care (as documented) at patient's floor/unit and/or counseling patient: Coding Level of Care Code 89941 Subseq Hosp Care Lvl 2 Diagnoses Foreign body in urethra T19.0XXA
[2022-06-07] MEDS: AMPICILLIN/SULBACTAM SOD 1,500 MG in 0.9 % SODIUM CHLORIDE 100 ML IV SCH ×2 (09:56→16:28)
--- NOTE | 2022-06-07 10:55 | Gastrointestinal Consultation ---
Date of Consultation June 07, 2022 Assessment & Plan (1) Foreign body: The metallic foreign body in the stomach is likely a paper clip which needs to be removed by EGD and I plan for this today. The ?? foreign bodies in the colon does not need any intervention and he will likely pass them with his BM, I suggest using daily Miralax and repeat serial imaging. History of Present Illness Reason for Consultation: Foreign body in the stomach Attending Physician: Anthony Gross MD History of Present Illness 22 years old male patient with recurrent admission from the shelter for foreign body ingestion and foreign body implantation ion the urethra, last EGD 03/2022 I was able to remove all the foreign bodies from his stomach, his CT scan now showed foreign bodies in the stomach and in the colon. Denies any GI bleeding but reports issues with constipation. No abdominal pain. Urology saw him and had bedside cystoscopy with no foreign bodies. Allergies Allergy/AdvReac Type Severity Reaction Status Date / Time No Known Allergies Allergy Verified 06/06/22 21:27 Home Medications Medication Instructions Recorded Confirmed Type lithium carbonate 300 mg capsule 300 mg PO BID 03/25/22 06/06/22 History mirtazapine 45 mg tablet 45 mg PO HS 03/25/22 06/06/22 History paroxetine HCl 10 mg tablet 10 mg PO HS 03/25/22 06/06/22 History paroxetine HCl 20 mg tablet 20 mg PO HS 03/25/22 06/06/22 History acetaminophen 325 mg tablet 650 mg PO Q4H PRN pain #30 tabs 04/15/22 06/06/22 Rx haloperidol 10 mg tablet 10 mg PO BID #60 tabs 04/15/22 06/06/22 Rx apixaban 5 mg tablet (Eliquis) 5 mg PO BID 05/31/22 06/06/22 History aripiprazole 5 mg tablet 5 mg PO DAILY 05/31/22 06/06/22 History docusate sodium 100 mg tablet 100 mg PO BID 05/31/22 06/06/22 History haloperidol 5 mg tablet 5 mg PO HS 05/31/22 06/06/22 History lactulose 10 gram/15 mL oral 30 ml PO DAILY PRN Loose Stool 05/31/22 06/06/22 History solution Patient History Medical History Aggression Antisocial behavior Antisocial personality disorder Anxiety Auditory hallucination Depression Foreign body in stomach Foreign body in urethra Foreign body ingestion H/O swallowed foreign body Malingerer Microcytic anemia Pulmonary emboli Schizophrenia Self-harming behavior Small bowel obstruction Suicidal ideation Surgical History H/O cystoscopy H/O esophagogastroduodenoscopy H/O exploratory laparotomy Social History Smoking Status: Never smoker Tobacco Type: Cigarettes Second Hand Exposure: No; Do You Dip or Chew Tobacco: No; Tobacco Cessation Education Requested by Patient: No Hx Alcohol Use: No Hx Substance Use: No Preferred Language: Barbadian Communication Ability: Effective Cake Puller Required: No Beliefs That Will Affect Care: None marital status: Single Current Living Situation: Other Current Living Situation Comment: [facility]. How many Children do You have: 0 Other Information That Helps Us Care for You: No Feels Safe at Home: Yes Safety Concerns: Feels Safe At This Time Assistive Devices: None Review of Systems Review of Systems: All systems reviewed & are unremarkable except as noted in HPI & below Physical Exam Constitutional: comfortable; no acute distress Respiratory: normal respiratory effort, lungs clear to auscultation Cardiovascular: RRR, no murmur, no edema Gastrointestinal (Abdomen): normal bowel sounds, soft, nontender, no hepatosplenomegaly Results & Data ([facility]) Vital Signs (Past 12 Hours) Vital Signs Temp Pulse Pulse Resp BP BP Pulse Ox 06/07/22 07:34 36.9 C 89 14 131/72 99 06/06/22 23:19 06/06/22 23:19 06/06/22 23:19 06/06/22 23:19 37 C 90 14 127/72 98 06/06/22 23:19 37 C 90 14 127/72 98 06/06/22 22:52 88 19 136/74 98 Pulse Ox O2 Del Method O2 Del Method 06/07/22 07:34 Room Air 06/06/22 23:19 Room Air 06/06/22 23:19 Room Air 06/06/22 23:19 98 Room Air 06/06/22 23:19 Room Air 06/06/22 23:19 Room Air 06/06/22 22:52 Room Air Laboratory Results Laboratory Results - last 24 hr 06/06/22 06/06/22 06/06/22 21:34 21:34 21:34 WBC 11.44 H RBC 4.57 L Hgb 11.1 L Hct 35.2 L MCV 77.0 L MCH 24.3 L MCHC 31.5 L RDW Std Deviation 40.2 RDW Coeff of Bassem 14.6 H Plt Count 198 MPV 10.9 Immature Gran % (Auto) 0.3 Neut % (Auto) 76.6 Lymph % (Auto) 13.3 [place] % (Auto) 9.4 Eos % (Auto) 0.2 Baso % (Auto) 0.2 Neut # (Auto) 8.78 H Lymph # (Auto) 1.52 [place] # (Auto) 1.07 H Eos # (Auto) 0.02 Baso # (Auto) 0.02 Immature Gran # (Auto) 0.03 H Sodium 137 Potassium 3.6 Chloride 103 Carbon Dioxide 26 Anion Gap 8 BUN 16 Creatinine 1.11 Est Cr Clr Drug Dosing 117.0 Est GFR ( Amer) 108.7 Est GFR (Non-Af Amer) 93.8 BUN/Creatinine Ratio 14.4 Glucose 93 Calcium 9.1 Total Bilirubin 0.7 AST 15 ALT 38 Alkaline Phosphatase 67 Total Protein 7.5 Albumin 4.2 Globulin 3.3 Albumin/Globulin Ratio 1.3 Lipase 31 Urine Color Urine Appearance Urine pH Ur Specific [place] Urine Protein Urine Glucose (UA) Urine Ketones Urine Blood Urine Nitrite Urine Bilirubin Urine Urobilinogen Ur Leukocyte Esterase Urine WBC (Auto) Urine RBC (Auto) U Hyaline Cast (Auto) U Epithel Cells (Auto) Urine Bacteria (Auto) Nasal Screen MRSA (PCR) SARS-CoV-2, RNA, NAAT NEGATIVE 06/07/22 06/07/22 06/07/22 00:13 07:21 07:41 WBC 11.18 H RBC 4.55 L Hgb 10.9 L Hct 35.1 L MCV 77.1 L MCH 24.0 L MCHC 31.1 L RDW Std Deviation 40.9 RDW Coeff of Bassem 14.7 H Plt Count 195 MPV 11.2 Immature Gran % (Auto) 0.4 Neut % (Auto) 77.3 Lymph % (Auto) 11.0 [place] % (Auto) 10.9 Eos % (Auto) 0.2 Baso % (Auto) 0.2 Neut # (Auto) 8.65 H Lymph # (Auto) 1.23 [place] # (Auto) 1.22 H Eos # (Auto) 0.02 Baso # (Auto) 0.02 Immature Gran # (Auto) 0.04 H Sodium Potassium Chloride Carbon Dioxide Anion Gap BUN Creatinine Est Cr Clr Drug Dosing Est GFR ( Amer) Est GFR (Non-Af Amer) BUN/Creatinine Ratio Glucose Calcium Total Bilirubin AST ALT Alkaline Phosphatase Total Protein Albumin Globulin Albumin/Globulin Ratio Lipase Urine Color Yellow Urine Appearance Clear Urine pH 7.0 Ur Specific [place] 1.008 Urine Protein Negative Urine Glucose (UA) Negative Urine Ketones Negative Urine Blood 1+ H Urine Nitrite Positive A Urine Bilirubin Negative Urine Urobilinogen Negative Ur Leukocyte Esterase 2+ H Urine WBC (Auto) >30 H Urine RBC (Auto) 5-10 H U Hyaline Cast (Auto) 0 U Epithel Cells (Auto) 0-5 Urine Bacteria (Auto) 1+ H Nasal Screen MRSA (PCR) Negative SARS-CoV-2, RNA, NAAT
[2022-06-07] MEDS ORDERED: SODIUM CHLORIDE 0.9% 1000ML 1,000 ML IV SCH (11:00)
--- NOTE | 2022-06-07 12:26 | Anesthesiology Consultation ---
Date of Service June 07, 2022 Assessment & Plan Chart Review Chart Review: Acceptable Risk for Surgery Consults Requested none ASA ASA2 Proposed Anesthesia Anesthesia Type: General Risk / Benefits Reviewed With: PT / POA / Parent / Guardian, Accepts Plan and Informed Consent Obtained History Surgery Operation Date: 06/07/22 12:00 Proposed Procedures p Penile Foreign Body Removal - Rubio Montaño MD Height/Weight Height: 5 ft 10 in Weight: 86.8 kg Allergies Allergy/AdvReac Type Severity Reaction Status Date / Time No Known Allergies Allergy Verified 06/06/22 21:27 Medications Home Medications Medication Instructions Recorded Confirmed Last Taken lithium carbonate 300 mg capsule 300 mg PO BID 03/25/22 06/06/22 03/24/22 06:30 mirtazapine 45 mg tablet 45 mg PO HS 03/25/22 06/06/22 03/23/22 paroxetine HCl 10 mg tablet 10 mg PO HS 03/25/22 06/06/22 03/23/22 paroxetine HCl 20 mg tablet 20 mg PO HS 03/25/22 06/06/22 03/23/22 acetaminophen 325 mg tablet 650 mg PO Q4H PRN pain #30 tabs 04/15/22 06/06/22 Unknown haloperidol 10 mg tablet 10 mg PO BID #60 tabs 04/15/22 06/06/22 03/23/22 apixaban 5 mg tablet (Eliquis) 5 mg PO BID 05/31/22 06/06/22 Unknown aripiprazole 5 mg tablet 5 mg PO DAILY 05/31/22 06/06/22 Unknown docusate sodium 100 mg tablet 100 mg PO BID 05/31/22 06/06/22 Unknown haloperidol 5 mg tablet 5 mg PO HS 05/31/22 06/06/22 Unknown lactulose 10 gram/15 mL oral 30 ml PO DAILY PRN Loose Stool 05/31/22 06/06/22 Unknown solution Active Medications Generic Name Dose Route Start Last Admin Trade Name Freq PRN Reason Stop Dose Admin Aripiprazole 5 mg 06/07/22 09:00 06/07/22 11:45 Aripiprazole 5 Mg Tab PO 07/07/22 08:59 Not Given DAILY WAYNE Docusate Sodium 100 mg 06/07/22 09:00 06/07/22 11:46 Docusate Sodium 100 Mg Cap PO 07/07/22 08:59 Not Given BID WAYNE Haloperidol 5 mg 06/07/22 21:00 06/07/22 00:02 Haloperidol 5 Mg Tab PO 07/07/22 20:59 5 mg HS WAYNE Administration Haloperidol 10 mg 06/07/22 09:00 06/07/22 11:46 Haloperidol 5 Mg Tab PO 07/07/22 08:59 Not Given BID WAYNE Ampicillin Sodium/Sulbactam 104 mls @ 200 mls/hr 06/07/22 10:00 06/07/22 10:28 Sodium 1,500 mg/ Sodium IV 06/17/22 09:59 Infused Chloride Q6H WAYNE Infusion Protocol Sodium Chloride 1,000 mls @ 100 mls/hr 06/07/22 11:00 06/07/22 11:45 Nss 1000ml IV 07/07/22 10:59 100 mls/hr .Q10H WAYNE Administration [place] Carbonate 300 mg 06/07/22 09:00 06/07/22 11:46 [place] Carbonate 300 Mg Tab PO 07/07/22 08:59 Not Given BID WAYNE Mirtazapine 45 mg 06/07/22 21:00 06/07/22 00:02 Mirtazapine Soltab 15 Mg PO 07/07/22 20:59 45 mg HS WAYNE Administration Paroxetine HCl 30 mg 06/07/22 21:00 06/07/22 00:03 Paroxetine Hcl 10 Mg Tab PO 07/07/22 20:59 30 mg HS WAYNE Administration NPO Date Last Intake of Fluids: 06/06/22 Time Last Intake of Fluids: 23:59 Date Last Intake of Solids: 06/06/22 Time Last Intake of Solids: 06:00 Past Medical History Medical History Aggression Antisocial behavior Antisocial personality disorder Anxiety Auditory hallucination Depression Foreign body in stomach Foreign body in urethra Foreign body ingestion H/O swallowed foreign body 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 Microcytic anemia Pulmonary emboli Schizophrenia Self-harming behavior Small bowel obstruction Suicidal ideation Exercise / Class Metabolic Activity II 4-5 Yardwork/Stairs/Walk up hill Past Surgical History Surgical History H/O cystoscopy H/O esophagogastroduodenoscopy H/O exploratory laparotomy Past Anesthesia History No Hx of Anesthesia Complications and No Family Hx of Anesthesia Complications History of PONV No Hx of PONV and No Hx of Motion Sickness Social History Smoking Status: Never smoker tobacco type: cigarettes Do You Dip or Chew Tobacco: No Hx Alcohol Use: No Hx Substance Use: No substance use type: does not use Physical Exam Vital Signs Last Vital Signs Temp 98.4 F 06/07/22 07:34 Pulse 89 06/07/22 07:34 Resp 14 06/07/22 07:34 BP 131/72 06/07/22 07:34 Pulse Ox 99 06/07/22 07:34 O2 Del Method 06/07/22 07:34 ENMT Mouth: no dentition abnormality Thyromental Distance: > or= 3.5 Finger Breadths Mallampati Class: II Neck normal visual inspection Respiratory normal respiratory effort Auscultation: lungs clear to auscultation bilaterally Cardiovascular Rate/Rhythm: regular rate and regular rhythm Testing Laboratory Results 06/07/22 07:41 06/06/22 21:34 Urine Color Yellow 06/07/22 07:21 Urine Appearance Clear (Clear) 06/07/22 07:21 Urine pH 7.0 (4.5-7.5) 06/07/22 07:21 Ur Specific Rousseau 1.008 (1.000-1.030) 06/07/22 07:21 Urine Protein Negative (Negative) 06/07/22 07:21 Urine Glucose (UA) Negative (Negative) 06/07/22 07:21 Urine Ketones Negative (Negative) 06/07/22 07:21 Urine Nitrite Positive (Negative) A 06/07/22 07:21 Ur Leukocyte Esterase 2+ (Negative) H 06/07/22 07:21 Urine WBC (Auto) >30 /hpf (0-5) H 06/07/22 07:21 Urine RBC (Auto) 5-10 /hpf (0-4) H 06/07/22 07:21 U Hyaline Cast (Auto) 0 /lpf (0-5) 06/07/22 07:21 U Epithel Cells (Auto) 0-5 /lpf (0-5) 06/07/22 07:21 Urine Bacteria (Auto) 1+ (Negative) H 06/07/22 07:21
[2022-06-07] MEDS ORDERED: ePHEDrine sulfate 50 MG/ML AMP IV PRN (12:27)
[2022-06-07] MEDS ORDERED: fentaNYL citrate 100 MCG/2 ML VIAL IV PRN (12:27)
[2022-06-07] MEDS ORDERED: ATROPINE SULFATE 0.1 MG/ML 10ML SYR IV PRN (12:27)
[2022-06-07] MEDS ORDERED: ONDANSETRON INJ 2 MG/ML 2 ML VIAL IV PRN (12:27)
[2022-06-07] MEDS ORDERED: MIDAZOLAM HCL 1 MG/ML 2ML VIAL ONE (12:57)
[2022-06-07] MEDS ORDERED: PROPOFOL IV EMULSION 10 MG/ML 20 ML VIAL IV ONE (12:57)
[2022-06-07] MEDS ORDERED: ONDANSETRON INJ 2 MG/ML 2 ML VIAL ONE (12:57)
[2022-06-07] MEDS ORDERED: DEXAMETHASONE SOD INJ 4 MG/ML VIAL ONE (12:57)
[2022-06-07] MEDS ORDERED: fentaNYL citrate 100 MCG/2 ML VIAL ONE (12:57)
--- NOTE | 2022-06-07 13:31 | Operative Report ---
Post Operative Report Pre & Post Diagnosis Operation Date: 06/07/22 12:00 Pre-Op Diagnosis: FOREIGN BODY INGESTION Post-Op Diagnosis: FOREIGN BODY INGESTION I identified the patient and participated in the time-out.: Yes Procedure Operation Date: 06/07/22 12:00 Actual Procedures p EGD(Not Applicable) - Aki Duval MD Surgeon Aki Duval MD Data Entry Coordinator None Estimated Blood Loss 0 Findings See Below (No foreign bodies in the stomach and duodenum) Specimens None Description of Procedure EGD I attest to the content of the Intraoperative Record and any orders documented therein. Any exceptions are noted below.
--- NOTE | 2022-06-07 13:35 | Hospitalist Progress Note ---
Date of Service June 07, 2022 Assessment & Plan (1) Foreign body in urethra: Plan: Urology consultation and evaluation appreciated. Bedside cystoscopy performed today, June 07. No evidence of urethral foreign body at this time (2) Schizophrenia: Plan: Chronic. Controlled with current medical management (3) Foreign body in stomach: Plan: Gastroenterology consultation appreciated. EGD later today, June 07 Plan Anticipate discharge back to the long term tomorrow, June 08 Admission and Anticipated Discharge Date Admission Date: June 06, 2022 Subjective Alert. No acute distress. Urology entry noted. Bedside cystoscopy performed with no evidence of foreign body in the urethra. He is now voiding uneventfully. Case discussed with gastroenterology. He will undergo EGD later today, June 07, for removal of the gastric foreign body which is probably an ingested paperclip Review of Systems Review of Systems: Constitutional-no fever or chills ENT-no blurred vision, no double vision, no epistaxis, no sore throat Respiratory-no cough, no wheezing, no shortness of breath Cardiac-no palpitations, no chest pain, no syncope GI-no nausea, vomiting, diarrhea, melena, hematochezia. He states that he has mid abdominal discomfort -no urinary retention, no urinary incontinence, no dysuria, no hematuria Musculoskeletal-no joint pain, no muscle tenderness Skin-no bruising, no rashes, no pruritus Neuro-no isolated weakness, no paresthesia, no weakness Psych-no depression, no anxiety Physical Exam Physical Exam: General-alert and oriented x3, no fevers, no chills HEENT-head atraumatic and normocephalic, pupils equal and reactive to light, e xtraocular muscles intact Neck-no lymphadenopathy or thyromegaly, trachea midline Chest-clear to auscultation percussion. No rales wheezing or rhonchi Cardiac-regular rate and rhythm, normal S1 and S2, no murmurs Abdomen-normal bowel sounds, no hepatosplenomegaly. Tenderness in the epigastric region with palpation Extremities-no cyanosis, clubbing, or edema Neuro-cranial nerves II through XII intact, motor and sensory function within normal limits, strength symmetrical , no focal deficits Psych-normal affect, normal mood Results & Data Results & Data ([facility]) Vital Signs (Past 12 Hours) Vital Signs Temp Pulse Resp BP Pulse Ox O2 Del Method 06/07/22 07:34 36.9 C 89 14 131/72 99 Room Air Laboratory Results 06/07/22 07:41 06/06/22 21:34 PG Care Time/CCT Total # of Minutes Spent Total Time Spent with Patient: Total time spent is greater than 50% in coordination of care (as documented) at patient's floor/unit and/or counseling patient: Coding Level of Care Code 14849 Subseq Hosp Care Lvl 3 Diagnoses Foreign body in urethra T19.0XXA Schizophrenia F20.9 Schizophrenia type: unspecified Foreign body in stomach T18.2XXA (1) Schizophrenia Schizophrenia type: unspecified Qualified Code(s): F20.9 - Schizophrenia, unspecified
--- NOTE | 2022-06-07 13:37 | GI REPORT ---
Patient Name: Stefan Simon Procedure Date: 06/07/2022 12:16 PM Date of : 2000 Admit Type: Inpatient Age: 22 Gender: Male Attending MD: Aki Duval MD, Procedure: Upper GI endoscopy Providers: Aki Duval MD Referring MD: Anthony Boyle Indications: Foreign body in the stomach, Abnormal CT of the GI tract Medicines: General Anesthesia Complications: No immediate complications. Estimated Blood Loss: Estimated blood loss: none. Procedure: Pre-Anesthesia Assessment: - Prior to the procedure, a History and Physical was performed, and patient medications, allergies and sensitivities were reviewed. The patient's tolerance of previous anesthesia was reviewed. - The risks and benefits of the procedure and the sedation options and risks were discussed with the patient. All questions were answered and informed consent was obtained. - Patient identification and proposed procedure were verified prior to the procedure by the physician and the nurse. The procedure was verified in the procedure room. - Pre-procedure physical examination revealed no contraindications to sedation. After obtaining informed consent, the endoscope was passed under direct vision. Throughout the procedure, the patient's blood pressure, pulse, and oxygen saturations were monitored continuously. The Endoscope was introduced through the mouth, and advanced to the proximal jejunum. The upper GI endoscopy was accomplished without difficulty. The patient tolerated the procedure well. Findings: The examined esophagus was normal. The entire examined stomach was normal. Scar of prior gastrotomy in the body. Scar in the antrum area. The examined duodenum was normal. Impression: - No foreign bodies seen in the examined UGI tract. Recommendation: - [facility]. - Obtain KUB now to check the location of the foreign body. Aki Duval MD 06/07/2022 1:37:03 PM This report has been signed electronically. Note Initiated On: 06/07/2022 12:16 PM Number of Addenda: 0 I attest to the content of the Intraoperative Record and orders documented therein, exceptions below {[id number]}
--- NOTE | 2022-06-07 14:06 | Anesthesiology Progress Note ---
Date of Service June 07, 2022 Anesthesia Post Procedure Vital Signs Vital Signs: Temp Pulse Pulse Pulse Resp BP BP 06/07/22 14:00 83 14 129/66 06/07/22 13:52 97.3 F L 91 H 12 123/71 06/07/22 07:34 98.4 F 89 14 06/06/22 23:19 06/06/22 23:19 06/06/22 23:19 06/06/22 23:19 98.6 F 90 14 06/06/22 23:19 98.6 F 90 14 06/06/22 22:52 88 19 136/74 06/06/22 21:00 107 H 20 141/95 H 06/06/22 19:50 99 H 131/92 06/06/22 17:00 97.9 F 113 H 18 124/73 BP Pulse Ox Pulse Ox O2 Del Method O2 Del Method O2 Flow Rate 06/07/22 14:00 100 Oxymask 6 06/07/22 13:52 100 Oxymask 6 06/07/22 07:34 131/72 99 Room Air 06/06/22 23:19 Room Air 06/06/22 23:19 Room Air 06/06/22 23:19 98 Room Air 06/06/22 23:19 127/72 98 Room Air 06/06/22 23:19 127/72 98 Room Air 06/06/22 22:52 98 Room Air 06/06/22 21:00 98 Room Air 06/06/22 19:50 99 Room Air 06/06/22 17:00 98 Room Air Pain Intensity Bilateral Abdomen: Pain Intensity: 6 Transfer of Care Handoff Completed per policy Notes Mental Status: alert / awake / arousable and participated in evaluation Patient Amnestic to Procedure: Yes Nausea / Vomiting: adequately controlled Pain: adequately controlled Airway Patency, RR, SpO2: stable & adequate BP & HR: stable & adequate Hydration State: stable & adequate Anesthetic Complications: no major complications apparent and Pt Satisfied with anesthetic care
--- NOTE | 2022-06-07 14:15 | XRay Report ---
KUB CLINICAL HISTORY: check location of foreign body COMPARISON STUDY: CT of the abdomen and pelvis June 06, 2022. FINDINGS: A 1 cm linear metallic foreign body remains within the distal body of the stomach. Two line ar metallic foreign bodies within the ascending colon are present. A punctate metallic density is lik sanjay within the distal sigmoid colon. There is no evidence for a bowel obstruction. There is no eviden ce for free air on this supine exam. IMPRESSION: 1. Two linear metallic foreign bodies within the ascending colon. Mild distal migration since CT. 2. A 1 cm linear metallic foreign body remains within the distal body of the stomach. 3. Punctate metallic foreign body within the distal sigmoid colon. 4. No evidence for a bowel obstruction. ACT 112: Negative or not required by law. Electronically signed by: Layton Liu M.D. 06/07/2022 2:13 PM
--- NOTE | 2022-06-07 15:39 | Gastroenterology Progress Note ---
Date of Service June 07, 2022 Assessment & Plan Admission and Anticipated Discharge Date Admission Date: June 06, 2022 Subjective I reviewed the KUB with the radiologist, there are no foreign bodies in the stomach on endoscopy so the foreign body seen on KUB could be either in the a loop of bowel under the stomach or berried in the stomach wall it self which could correlate to the scar area seen in the antrum. At this point this can be followed with serial imaging as OP and endoscopic intervention can be planned as OP if serial imaging confirms that this remains in the area of the stomach for a period of time. Results & Data ([facility]) Vital Signs (Past 12 Hours) Vital Signs Temp Pulse Pulse Resp BP BP Pulse Ox 06/07/22 15:01 36.7 C 75 20 97/51 L 97 06/07/22 14:45 77 20 111/63 97 06/07/22 14:20 77 16 116/64 99 06/07/22 14:10 36.4 C L 88 12 121/70 99 06/07/22 14:00 83 14 129/66 100 06/07/22 13:52 36.3 C L 91 H 12 123/71 100 06/07/22 07:34 36.9 C 89 14 131/72 99 O2 Del Method O2 Flow Rate 06/07/22 15:01 Room Air 06/07/22 14:45 Room Air 06/07/22 14:20 Room Air 06/07/22 14:10 Room Air 06/07/22 14:00 Oxymask 4 06/07/22 13:52 Oxymask 6 06/07/22 07:34 Room Air
[2022-06-07] MEDS ORDERED: haloperidoL 5 MG TAB PO SCH (21:00)
[2022-06-07] MEDS ORDERED: PARoxetine HCL 10 MG TAB PO SCH (21:00)
[2022-06-07] MEDS ORDERED: PARoxetine HCL 20 MG TAB PO SCH (21:00)
[2022-06-07] MEDS ORDERED: MIRTAZAPINE SOLTAB 15 MG PO SCH (21:00)
--- NOTE | 2022-06-08 00:16 | Billing Data ---
Date of Service June 08, 2022 Coding Level of Care Code 42047 Initial Inpt Care Lvl 3
--- NOTE | 2022-07-01 08:56 | Discharge Summary ---
Date of Service June 07, 2022 Principal Diagnosis suspected FB in urethra, subsequently ruled out Discharge Exam General-alert and oriented x3, no fevers, no chills HEENT-head atraumatic and normocephalic, pupils equal and reactive to light, extraocular muscles intact Neck-no lymphadenopathy or thyromegaly, trachea midline Chest-clear to auscultation percussion. No rales wheezing or rhonchi Cardiac-regular rate and rhythm, normal S1 and S2, no murmurs Abdomen-normal bowel sounds, no hepatosplenomegaly. Tenderness in the epigastric region with palpation Extremities-no cyanosis, clubbing, or edema Neuro-cranial nerves II through XII intact, motor and sensory function within normal limits, strength symmetrical , no focal deficits Psych-normal affect, normal mood Discharge Data Allergies Allergy/AdvReac Type Severity Reaction Status Date / Time No Known Allergies Allergy Verified 06/06/22 21:27 Consultations 06/06/22 21:49 ED Decision to Admit Stat 06/06/22 23:10 Consult Urology Routine Procedures Performed Operation Date: 06/07/22 12:00 Actual Procedures p Esophagogastroduodenoscopy(Not Applicable) - Aki Duval MD Ordered Studies 06/06/22 19:38 CT abd pelvis wo con Stat Hospital Course (1) Foreign body in urethra: urology performed a bedside cystoscopy. No urethral FB seen #h/o pulmonary emboli -hold home eliquis in preparation for possible procedure(s) in am DVT ppx: SCDs, hold home Eliquis for procedure in am FEN/GI: NPO Code Status: Full Dispo: med surg (2) Foreign body of rectum: GI consult appreciated. FB seen on xray may be in loop of bowel behind stomach or in stomach wall itself. No indication for EGD at this time. Serial xrays warranted. No need for EGD at this time. (3) Schizophrenia: chronic. Supportive care. Continue current med management. (4) Chronic anemia: take Eliquis chronically. No overt GI bleeding (5) Pulmonary emboli: history of. Continue Eliquis therapy Plan discharge back to [facility] today Total Time Total Time Spent Total Time Spent (In Minutes): 35 minutes Discharge Plan Discharge Items [facility] Reason For Visit: FOREIGN BODY INGESTION, FOREIGN BODY IN URETHRA Discharge Diagnosis: Foreign body in stomach Condition on Discharge: Good Activity: Per Instructions section Non-emergency contact: Primary Care Provider Call non-emergency contact if: your symptoms worsen and your pain is not controlled Follow-up/Referrals: Kalyn ROBERSON [Primary Care Provider] - Diet: Regular Addtl Attending Provider Instructions: 22yo male resident of the local [facility] with PMHx self harming behavior, malingering, previous placement of foreign bodies in the rectum, urethra and stomach, anxiety, schizophrenia, auditory hallucinations and depression. 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 Chronic h/o ingesting foreign objects and placing objects in urethra/rectum. Denies he put anything in his urethra/rectum this time. Thinks he may have swallowed some plastic last week. -CT A/P: gas containing foreign body is identified in the distal urethra, metallic foreign body in the distal stomach and at least 3 foreign bodies within the colon -Urology consulted: NPO, cystoscopy in am if unable to remove foreign body manually from urethra -GI consulted: possible ?colonoscopy for foreign body removal, will monitor for now. EGD deferred. Opting for serial monitoring. Patient can be discharged. -mild leukocytosis, suspect from trauma. No indication for abx at this time. -UA when able to collect with reflex culture -NPO, maintenance IVF -hold home eliquis -tylenol for pain #Schizophrenia #Anxiety/depression -chronic psych history -cont. home abilify, haldol, remeron, paroxetine, lithium #h/o pulmonary emboli -hold home eliquis in preparation for possible procedure(s) in am. Pending Studies at Discharge: No Stand-Alone Forms: My [facility] Skilled Items Patient informed of condition?: Yes Discharge Level of Care: Other Communicable Disease: No Discharge Prognosis: Stable Lines: None Urinary Catheter: No Medications and DC Order Prescriptions: Continued paroxetine HCl 10 mg Tablet 10 mg PO HS lithium carbonate 300 mg Capsule 300 mg PO BID paroxetine HCl 20 mg Tablet 20 mg PO HS Rx Instructions: CRUSH, TAKE WITH 10MG=30MG mirtazapine 45 mg Tablet 45 mg PO HS Rx Instructions: CRUSH acetaminophen 325 mg Tablet 650 mg PO Q4H PRN (Reason: pain) Qty: 30 0RF haloperidol 10 mg Tablet 10 mg PO BID Qty: 60 0RF Rx Instructions: CRUSH, TAKE WITH 5 MG TAB haloperidol 5 mg Tablet 5 mg PO HS Rx Instructions: Take w/ 10 mg dose docusate sodium 100 mg Tablet 100 mg PO BID aripiprazole 5 mg Tablet 5 mg PO DAILY lactulose 10 gram/15 mL Solution 30 ml PO DAILY PRN (Reason: Loose Stool) Eliquis 5 mg Tablet 5 mg PO BID Discharge Orders: Discharge Order (Routine); Ordered 06/07/22 Ordered By: Mele Marie Admission Data Admit Date/Time: 06/06/22 22:25 Attending Provider: Anthony Gross Admit Provider: Kelvin Red Primary Care Provider: Kalyn ROBERSON Other Providers: Kevin Dumont ; Rubio Montaño Other Interventions: Discharge Summary Assessment (RN) Last Done: 06/07/22 16:51 Coding Level of Care Code HOSP INP/OBS DISCH >30 MIN Diagnoses Foreign body in urethra T19.0XXA Foreign body of rectum T18.5XXA Schizophrenia F20.9 Schizophrenia type: unspecified Chronic anemia D64.9 Pulmonary emboli I26.99
== END 2022-06-07 17:57 | DRG 700 ==
LOC: ED 16:43 → SUATTDRO 22:25 → 3N 22:25 → INTOOBSV 22:25 → 3N 22:52 → UNDODISIN 06-07 16:59

== ENCOUNTER 2023-03-09 13:28 | Inpatient (IN) ==
--- NOTE | 2023-03-09 14:56 | ED Triage Note ---
Date of Service March 09, 2023 History of Present Illness This patient was briefly evaluated while in triage. An abbreviated physical exam was performed. This patient is a 23-year-old Male who presents to the ED for evaluation of swallowing batteries and metal attached to a string in his mouth. He also notes a pen in his urethra. He notes it was about 3 hours ago. Physical Exam GENERAL: 23 year old male. In no acute distress. In hand and leg shackles. SKIN: No lesions or rashes. HEART: Regular rate and rhythm. LUNGS: Clear to auscultation. ABDOMEN: Bowel sounds normoactive. No guarding or rigidity. NEURO: Alert and oriented. No deficits. MUSCULOSKELETAL: No deformities to inspection of the extremities. PSYCH: Patient is pleasant and answers all questions appropriately. Initial orders for labs and / or imaging were placed and patient was placed in the waiting area until a bed is available. Please see further documentation for the full ED course.
--- NOTE | 2023-03-09 16:22 | XRay Report ---
XR chest 1V portable HISTORY: Ingested foreign bodies COMPARISON: Chest 04/09/2022. FINDINGS: The lungs are clear. Cardiac silhouette is normal in size. No pleural effusions. No pneumot horax. No radiopaque foreign bodies within the chest. IMPRESSION: No acute process. No radiopaque foreign bodies within the chest. ACT 112: Negative or not required by law. Electronically signed by: Richard Aburto M.D. 03/09/2023 4:21 PM
--- NOTE | 2023-03-09 16:25 | XRay Report ---
KUB HISTORY: Ingested foreign bodies COMPARISON: KUB 06/08/2022. FINDINGS: Multiple buttons on the right side of the abdomen which are likely external to the patient. There are 3 metallic foreign bodies within the left upper quadrant of the abdomen each measuring savannah roximately 6 cm. These likely reside within the stomach consistent with batteries. There is suture ma terial in the left upper quadrant. There is an additional 6 cm metallic foreign body within the expec dung location of the rectum. This also likely represents a battery. There are additional tubular radio paque foreign bodies overlying the expected location of the bladder/rectum and penis. These measure u p to 8 cm in length. No evidence for a bowel obstruction. No renal calculi. No ureteral calculi. No pneumoperitoneum or pneumatosis. IMPRESSION: Multiple radiopaque foreign bodies as described above. ACT 112: Negative or not required by law. Electronically signed by: Richard Aburto M.D. 03/09/2023 4:23 PM
[2023-03-09 17:53] LABS: Basophils # (auto) 0.02 K/uL (0.00-0.20); Basophils % (auto) 0.2 %; Eosinophils # (auto) 0.04 K/uL (0.00-0.50); Eosinophils % (auto) 0.4 %; Hematocrit (blood only) 39.6 % (42.0-52.0); Hemoglobin 12.3 g/dl (14.0-18.0); Immature Granulocytes # (auto) 0.03 K/uL (0.01-0.20); Immature Granulocytes % (auto) 0.3 %; Lymphocytes # (auto) 1.45 K/uL (1.20-3.40); Lymphocytes % (auto) 14.5 %; Mean Corpuscular Hemoglobin 23.3 pg (25.0-34.0); Mean Corpuscular Hgb Conc 31.1 g/dL (32.0-36.0); Mean Corpuscular Volume 74.9 fL (80.0-100.0); Mean Platelet Volume 11.7 fL (9.4-12.4); Monocytes # (auto) 0.46 K/uL (0.11-0.59); Monocytes % (auto) 4.6 %; Neutrophils # (auto) 8.01 K/uL (1.40-6.50); Platelet Count 286 K/uL (130-400); RDW Coefficient of Variation 14.7 % (11.5-14.5); RDW Standard Deviation 39.7 fL (36.4-46.3); Red Blood Count 5.29 M/uL (4.70-6.10); White Blood Count 10.01 K/ul (4.8-10.8)
[2023-03-09 18:10] LABS: Albumin Globulin Ratio 1.1 (0.9-2); Albumin Level 4.4 gm/dl (3.4-5.0); BUN Creatinine Ratio 12.1 (10-20); Bilirubin,Total 0.6 mg/dl (0.2-1.0); Calcium 9.6 mg/dl (8.6-10.3); Creatinine Clr Calc Pharmacy 95.7 ml/min; Est GFR (African American) 94.4 ml/min; Est GFR (Non-African American) 81.4 ml/min; Globulin 3.9 gm/dl (2.5-4.0); Potassium 3.8 mmol/L (3.5-5.1); Total Protein 8.3 gm/dl (6.0-8.3)
--- NOTE | 2023-03-09 20:32 | Emergency Department Note ---
Impression & Plan Gastric foreign body, Foreign body in penis, FB anus/rectum ED Provider Note NAME: AL [id number] KRYSTLE AGE: 23 SEX: M : 2000 ARRIVES VIA: Walk-In INFORMANT: [Patient] ED PROVIDER(S): [Henrique Rodgers MD] CHIEF COMPLAINT: Foreign body HISTORY OF PRESENT ILLNESS: The patient is a 23-year-old male who resides at the local [facility]. He has a history of foreign body ingestion and inserting foreign bodies in his penis and rectum. The patient states that he swallowed multiple batteries today and states he also has a pen in his penile urethra. The patient states there is a string that is hanging out of his mouth that goes down the esophagus and is hooked onto the batteries. He fashioned a hook and wrapped the hook around the batteries and then tied everything to a string. He states that the hook is to prevent things from being easily pulled out as the hook would cause damage. The patient currently has no pain. He did try to urinate earlier and could not because of the pen. PMHx/PSHx: See Below SOCIAL HISTORY: See Below. PHYSICAL EXAM: GENERAL: Patient is in no acute distress. HEENT: No acute trauma, normocephalic atraumatic, mucous membranes moist, no nasal congestion. There is a string hanging out of his mouth tied onto his jumpsuit. NECK: No stridor, no adenopathy, no meningismus, trachea is midline. LUNGS: Clear to auscultation bilaterally, no wheeze, no rhonchi, breath sounds equal. HEART: Without murmurs gallops or rubs, regular rate and rhythm. ABDOMEN: Soft, nontender, bowel sounds positive, no peritonitis. EXTREMITIES: No cyanosis or edema, full range of motion of all the joints without pain or difficulty, no signs for acute trauma. NEUROLOGIC: Oriented x 3, no acute motor or sensory deficits, no focal weakness. SKIN: No rash, no jaundice, no diaphoresis. DIFFERENTIAL DIAGNOSIS: Gastric rupture, gastric foreign body, intestinal foreign body, rectal foreign body, penile foreign body, urinary obstruction, among others. EMERGENCY DEPARTMENT COURSE/PROCEDURES: Prior/Outside records reviewed: Assisted documentation, recent discharge summary. MEDICAL DECISION MAKING: There is no leukocytosis. The patient does have a mild anemia, this appears baseline. There was a normal platelet count. No renal failure or significant electrolyte abnormality. No concerning liver enzyme elevation. Films of the chest and abdomen were performed. The patient has at least 3 batteries in the stomach. There appears to be 1 battery in the rectum. The patient does have s ome sort of metallic appearing structure in the penile shaft. Bladder ultrasound did not show any obvious foreign body. The patient presents with foreign body ingestion as well as a penile foreign b marce. I did speak with GI as well as urology. Urology will deal with the penile shaft foreign body--Dr. Burton was consulted. I did speak with GI, Dr. Duval. The patient will have an endoscopy but this will be tomorrow morning. For now, he will be admitted to the hospitalist service. He requires observation overnight. I did speak with the patient and the case management team, the on-call hospitalist was consulted. DISPOSITION: Patient presentation and findings warrant a hospital stay and specialty consult. Past Med/Surg History Medical History Aggression Antisocial behavior Antisocial personality disorder Anxiety Auditory hallucination Chronic anemia Constipation Depression Foreign body Foreign body in stomach Foreign body in stomach Foreign body in urethra Foreign body in urethra Foreign body ingestion Foreign body of rectum H/O swallowed foreign body 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 Malingerer Microcytic anemia Pulmonary emboli Schizophrenia Self-harming behavior Small bowel obstruction Suicidal ideation Surgical History H/O cystoscopy H/O esophagogastroduodenoscopy H/O exploratory laparotomy Social History Smoking Status: Never smoker Tobacco Type: Cigarettes Second Hand Exposure: No; Do You Dip or Chew Tobacco: No; Hx Alcohol Use: No Hx Substance Use: No Preferred Language: Spanish Communication Ability: Effective Java Integration Developer Required: No Beliefs That Will Affect Care: None marital status: Single Current Living Situation: Other Current Living Situation Comment: [facility]. How many Children do You have: 0 Feels Safe at Home: Yes Assistive Devices: None Allergies Allergies Allergy/AdvReac Type Severity Reaction Status Date / Time No Known Allergies Allergy Verified 03/09/23 21:12 Home Meds Home Medications Medication Instructions Recorded Confirmed lithium carbonate 300 mg capsule 600 mg PO HS 03/25/22 03/09/23 paroxetine HCl 10 mg tablet 20 mg PO HS 03/25/22 03/09/23 aripiprazole 5 mg tablet 5 mg PO HS 05/31/22 03/09/23 diphenhydramine HCl 50 mg tablet 50 mg PO HS 03/09/23 03/09/23 haloperidol 10 mg tablet 20 mg PO HS 03/09/23 03/09/23 metoprolol tartrate 25 mg tablet 25 mg PO BID 03/09/23 03/09/23 mirtazapine 15 mg tablet 15 mg PO HS 03/09/23 03/09/23 Results & Data (ED) Vital Signs Vital Signs - 24 hr 03/09/23 14:54 03/09/23 20:37 03/09/23 20:40 Temperature 37.0 C Temperature Source Temporal Artery Scan Pulse Rate 105 H 86 81 Pulse Rhythm Regular Pulse Strength Normal Respiratory Rate 20 19 Respiratory Effort / Characteristics Non-Labored Spontaneous Respiratory Depth Normal Respiratory Pattern Regular Blood Pressure 122/67 120/76 Blood Pressure Mean 85 90 Blood Pressure Position Sitting Pulse Oximetry 96 98 Oxygen Delivery Method Room Air Room Air Sepsis Recent Fever Within 48 Hours No Sepsis New/Unexplained Change in Mental Status No Sepsis Action Taken by Nursing No Action Required 03/09/23 21:00 03/09/23 21:24 03/09/23 21:30 Temperature Temperature Source Pulse Rate 75 80 85 Pulse Rhythm Pulse Strength Respiratory Rate 16 18 20 Respiratory Effort / Characteristics Respiratory Depth Respiratory Pattern Blood Pressure 134/84 123/87 Blood Pressure Mean 100 99 Blood Pressure Position Pulse Oximetry 98 99 99 Oxygen Delivery Method Room Air Room Air Room Air Sepsis Recent Fever Within 48 Hours Sepsis New/Unexplained Change in Mental Status Sepsis Action Taken by Longterm Medications Current Medication List: was personally reviewed by me Laboratory Data Attestation: I reviewed the patient's lab results. 03/09/23 17:28 03/09/23 17:28 Lab Results 03/09/23 03/09/23 Range/Units 17:28 17:28 WBC 10.01 (4.8-10.8) K/ul RBC 5.29 (4.70-6.10) M/uL Hgb 12.3 L (14.0-18.0) g/dl Hct 39.6 L (42.0-52.0) % MCV 74.9 L (80.0-100.0) fL MCH 23.3 L (25.0-34.0) pg MCHC 31.1 L (32.0-36.0) g/dL RDW Std Deviation 39.7 (36.4-46.3) fL RDW Coeff of Bassem 14.7 H (11.5-14.5) % Plt Count 286 (130-400) K/uL MPV 11.7 (9.4-12.4) fL Immature Gran % (Auto) 0.3 % Neut % (Auto) 80.0 % Lymph % (Auto) 14.5 % [place] % (Auto) 4.6 % Eos % (Auto) 0.4 % Baso % (Auto) 0.2 % Neut # (Auto) 8.01 H (1.40-6.50) K/uL Lymph # (Auto) 1.45 (1.20-3.40) K/uL [place] # (Auto) 0.46 (0.11-0.59) K/uL Eos # (Auto) 0.04 (0.00-0.50) K/uL Baso # (Auto) 0.02 (0.00-0.20) K/uL Immature Gran # (Auto) 0.03 (0.01-0.20) K/uL Sodium 139 (136-145) mmol/L Potassium 3.8 (3.5-5.1) mmol/L Chloride 103 (98-107) mmol/L Carbon Dioxide 26 (21-32) mmol/L Anion Gap 10 (3-11) BUN 15 (6-23) mg/dl Creatinine 1.24 (0.6-1.4) mg/dl Est Cr Clr Drug Dosing 95.7 ml/min Est GFR ( Amer) 94.4 ml/min Est GFR (Non-Af Amer) 81.4 ml/min BUN/Creatinine Ratio 12.1 (10-20) Glucose 89 (70-99(Fasting)) mg/dl Calcium 9.6 (8.6-10.3) mg/dl Total Bilirubin 0.6 (0.2-1.0) mg/dl AST 26 (13-39) U/L ALT 55 H (7-52) U/L Alkaline Phosphatase 55 (34-104) U/L Total Protein 8.3 (6.0-8.3) gm/dl Albumin 4.4 (3.4-5.0) gm/dl Globulin 3.9 (2.5-4.0) gm/dl Albumin/Globulin Ratio 1.1 (0.9-2) Administered Medications Discontinued Medications Cefazolin Sodium (Ancef 2000mg) 2,000 mg in 15 mls @ 3.75 mls/min IV ONCE ONE; Protocol Stop: 03/09/23 22:38 Last Admin: 03/09/23 22:35 Dose: 3.75 mls/min Documented By: [id number] Imaging Data Radiologist's Impression: Chest X-Ray 03/09/23 14:56 XR chest 1V portable HISTORY: Ingested foreign bodies COMPARISON: Chest 04/09/2022. FINDINGS: The lungs are clear. Cardiac silhouette is normal in size. No pleural effusions. No pneumothorax. No radiopaque foreign bodies within the chest. IMPRESSION: No acute process. No radiopaque foreign bodies within the chest. ACT 112: Negative or not required by law. Electronically signed by: Richard Aburto M.D. 03/09/2023 4:21 PM KUB X-Ray 03/09/23 14:56 KUB HISTORY: Ingested foreign bodies COMPARISON: KUB 06/08/2022. FINDINGS: Multiple buttons on the right side of the abdomen which are likely external to the patient. There are 3 metallic foreign bodies within the left upper quadrant of the abdomen each measuring approximately 6 cm. These likely reside within the stomach consistent with batteries. There is suture material in the left upper quadrant. There is an additional 6 cm metallic foreign body within the expected location of the rectum. This also likely represents a battery. There are additional tubular radiopaque foreign bodies overlying the expected location of the bladder/rectum and penis. These measure up to 8 cm in length. No evidence for a bowel obstruction. No renal calculi. No ureteral calculi. No pneumoperitoneum or pneumatosis. IMPRESSION: Multiple radiopaque foreign bodies as described above. ACT 112: Negative or not required by law. Electronically signed by: Richard Aburto M.D. 03/09/2023 4:23 PM Bladder Ultrasound 03/09/23 20:13 Exam(s): US BLADDER EXAM: US Bladder CLINICAL HISTORY: poss fb bladder. TECHNIQUE: Real-time ultrasound of the bladder with image documentation. COMPARISON: CT abdomen and pelvis 06/06/2022 FINDINGS: Scattered echogenic foci noted throughout the central aspect of the bladder. No layering material identified. No radiopaque foreign body. No lateral wall thickening. The ureteral jets are not identified. No fluid noted within the pelvis. IMPRESSION: Scattered echogenic foci noted throughout the central aspect of the bladder is a nonspecific finding but suggests proteinaceous material. This may be seen with infection or nephrotic syndrome. No layering material identified. No radiopaque foreign body. Electronically signed by: Jose L Bliss MD 03/09/23 22:38 PM Discharge Plan Visit Data Chief Complaint: Foreign Body Stated Complaint: FOREIGN OBJECT IN MOUTH AND PENIS, BATTERIES ED Provider: Henrique Rodgers Discharge Problem: Gastric foreign body, Foreign body in penis, FB anus/rectum Patient Disposition: Admitted As Inpatient Condition: Fair Discharge Instructions Interventions: ED Discharge Assessment Last Done: 03/09/23 21:57
--- NOTE | 2023-03-09 21:13 | Urology Consultation ---
Date of Consultation March 09, 2023 Assessment & Plan (1) Foreign body in genitourinary tract: (2) Abdominal pain: (3) Acute urinary retention: (4) Antisocial behavior: (5) Antisocial personality disorder: (6) Foreign body in stomach: (7) Foreign body in urethra: (8) Foreign body ingestion: (9) Schizophrenia: (10) Self-harming behavior: Plan Well-known patient with history of self-harm behavior as well as foreign bodies within the GI and the urinary system. Patient appears to have foreign body within the urethra as well as possible foreign body within the bladder. Will be difficult to ascertain completely with imaging. Concern for possible worsening obstructive issues with foreign bodies within the urethra. Patient's vitals are currently stable. Currently n.p.o Temp is 37.0. Blood pressure 120/76. White count 10.01. Creatinine 1.24.. Hemoglobin 12.3. All other labs and vitals were reviewed pertinent values in the history, HPI, and plan section. Patient's imaging was extensively reviewed. Reviewed likely foreign body within the bladder as well as within the urethra and area of the distal urethra. Due to location concern about possible retrieval. Discussed possible issues related to obstruction with worsening issues. Reviewed extensively options. Unfortunately due to location will be extremely difficult to remove without sedation and ability to utilize graspers and cystoscopic equipment. Reviewed urgent need for intervention. Patient is being admitted to the hospitalist team with plans for observation with plans for possible GI intervention due to foreign bodies within the GI tract. Patient complicated medical and surgical history was reviewed and summarized above all imaging was reviewed interpreted by myself. We will plan for urgent/emergent intervention of obstructing foreign body within the urinary system with retention and inability to void. Risks and benefits discussed at length for procedure. These include bleeding, infection, injury to surrounding tissues or organs, and risks associated with anesthesia. Patient states understanding and agrees to proceed. Will sign consent and proceed. Plan for cystoscopy with extraction of foreign body and possible open extraction. History of Present Illness History of Present Illness New consultation for patient with history of self-harm and foreign body insertion. Patient had swallowed a number of batteries as well as placed a battery and other possible foreign bodies into the rectum. Patient has previously placed foreign bodies or swallowed foreign bodies and required retrieval has required ex lap in the past as well. Patient presented with inability to void and stated that he had placed portions of a felix in his urethra. On imaging patient has numerous foreign bodies within the body. Appears to have 2 tubelike structures possibly components of the pin within the urethra as well as a possible metal foreign body within the more distal portion of the urethra. One of the tubing structures appears to be possibly within the bladder. Discussed and reviewed patient's personal and family history as well as extensive review of the patient's previous records from prior admissions. Also, reviewed patient's medical surgery history especially related to any history of urinary issues from multiple foreign bodies and multiple procedures for extract ion Patient was admitted and is undergoing observation. Possible foreign bodies within the GI system may have to undergo retrieval. Plan was for observation with these Allergies Allergy/AdvReac Type Severity Reaction Status Date / Time No Known Allergies Allergy Verified 03/09/23 21:12 Home Medications Medication Instructions Recorded Confirmed Type lithium carbonate 300 mg capsule 600 mg PO HS 03/25/22 03/09/23 History paroxetine HCl 10 mg tablet 20 mg PO HS 03/25/22 03/09/23 History aripiprazole 5 mg tablet 5 mg PO HS 05/31/22 03/09/23 History diphenhydramine HCl 50 mg tablet 50 mg PO HS 03/09/23 03/09/23 History haloperidol 10 mg tablet 20 mg PO HS 03/09/23 03/09/23 History metoprolol tartrate 25 mg tablet 25 mg PO BID 03/09/23 03/09/23 History mirtazapine 15 mg tablet 15 mg PO HS 03/09/23 03/09/23 History Patient History Medical History (Updated 03/09/23 @ 21:55 by Alize Walls MD) Aggression Antisocial behavior Antisocial personality disorder Anxiety Auditory hallucination Chronic anemia Constipation Depression Foreign body Foreign body in stomach Foreign body in stomach Foreign body in urethra Foreign body in urethra Foreign body ingestion Foreign body of rectum H/O swallowed foreign body 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 Malingerer Microcytic anemia Pulmonary emboli Schizophrenia Self-harming behavior Small bowel obstruction Suicidal ideation Surgical History H/O cystoscopy H/O esophagogastroduodenoscopy H/O exploratory laparotomy Social History Smoking Status: Never smoker Tobacco Type: Cigarettes Second Hand Exposure: No; Do You Dip or Chew Tobacco: No; Hx Alcohol Use: No Hx Substance Use: No Preferred Language: Citizen Of [place] Communication Ability: Effective Small Offset Printer Required: No Beliefs That Will Affect Care: None marital status: Single Current Living Situation: Other Current Living Situation Comment: [facility]. How many Children do You have: 0 Feels Safe at Home: Yes Assistive Devices: None Review of Systems Review of Systems: All systems reviewed & are unremarkable except as noted in HPI & below Physical Exam Physical Exam: General: Alert and oriented x 3 in no acute distress. Patient is restrained. HEENT: Normocephalic Atraumatic. Inspection normal. Cranial Nerves 2-12 Grossly intact. Nares are clear. Neck is supple. Normal inspection of face. Normal inspection of neck. Neurologic: No deficits on inspection. Baseline for motor function and sensory. Psychologic: Flat affect. Noncombative Respiratory: Nonlabored. No use of accessory muscles. No tachypnea or dyspnea. Cardiovascular: No tachycardia Skin: [place] and Dry. No rashes or visible lesions. Extremities: Moving without issues. No motor deficits on inspection Lymphatics: No edema Abdomen: Moderately distended. No rebound or guarding. Has foreign body coming out of the mouth supposedly attached to the foreign bodies within the stomach Results & Data Vital Signs (Past 12 Hours) Vital Signs Temp Pulse Resp BP Pulse Ox O2 Del Method 03/09/23 20:40 81 03/09/23 20:37 86 19 120/76 98 Room Air 03/09/23 14:54 37.0 C 105 H 20 122/67 96 Room Air PG Care Time/CCT Total # of Minutes Spent Total Time Spent with Patient: Total time spent is greater than 50% in coordination of care (as documented) at patient's floor/unit and/or counseling patient: Coding Level of Care Code 92086 IN/OBS CONSULT LVL 5,80M Diagnoses Foreign body in genitourinary tract T19.9XXA Abdominal pain R10.9 Acute urinary retention R33.8 Antisocial behavior Antisocial personality disorder F60.2 Foreign body in stomach T18.2XXA Foreign body in urethra T19.0XXA Foreign body ingestion T18.9XXA Schizophrenia F20.9 Schizophrenia type: unspecified Self-harming behavior (9) Schizophrenia Schizophrenia type: unspecified Qualified Code(s): F20.9 - Schizophrenia, unspecified
--- NOTE | 2023-03-09 21:16 | Anesthesiology Consultation ---
Date of Service March 09, 2023 Assessment & Plan Chart Review Chart Review: Acceptable Risk for Surgery and Patient NOT seen in Pre Admission Testing History Surgery Operation Date: 03/09/23 21:30 Proposed Procedures p Cystoscopy - José Luis Burton DO Height/Weight Height: 5 ft 10 in Weight: 82 kg Allergies Allergy/AdvReac Type Severity Reaction Status Date / Time No Known Allergies Allergy Verified 03/09/23 21:12 Medications Home Medications Medication Instructions Recorded Confirmed Last Taken lithium carbonate 300 mg capsule 600 mg PO HS 03/25/22 03/09/23 03/08/23 paroxetine HCl 10 mg tablet 20 mg PO HS 03/25/22 03/09/23 03/08/23 aripiprazole 5 mg tablet 5 mg PO HS 05/31/22 03/09/23 03/08/23 diphenhydramine HCl 50 mg tablet 50 mg PO HS 03/09/23 03/09/23 03/07/23 haloperidol 10 mg tablet 20 mg PO HS 03/09/23 03/09/23 03/08/23 metoprolol tartrate 25 mg tablet 25 mg PO BID 03/09/23 03/09/23 03/01/23 mirtazapine 15 mg tablet 15 mg PO HS 03/09/23 03/09/23 03/08/23 Past Medical History Medical History Aggression Antisocial behavior Antisocial personality disorder Anxiety Auditory hallucination Chronic anemia Constipation Depression Foreign body Foreign body in stomach Foreign body in stomach Foreign body in urethra Foreign body in urethra Foreign body ingestion Foreign body of rectum H/O swallowed foreign body 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 Malingerer Microcytic anemia Pulmonary emboli Schizophrenia Self-harming behavior Small bowel obstruction Suicidal ideation Past Surgical History Surgical History H/O cystoscopy H/O esophagogastroduodenoscopy H/O exploratory laparotomy Social History Smoking Status: Never smoker tobacco type: cigarettes Do You Dip or Chew Tobacco: No Hx Alcohol Use: No Hx Substance Use: No substance use type: does not use Physical Exam Vital Signs Last Vital Signs Temp 37.0 C 03/09/23 14:54 Pulse 81 03/09/23 20:40 Resp 19 03/09/23 20:37 BP 120/76 03/09/23 20:37 Pulse Ox 98 03/09/23 20:37 O2 Del Method Room Air 03/09/23 20:37 Testing Laboratory Results 03/09/23 17:28 03/09/23 17:28
[2023-03-09] MEDS ORDERED: PROPOFOL IV EMULSION 10 MG/ML 20 ML VIAL IV ONE (21:27)
--- NOTE | 2023-03-09 21:41 | History & Physical Report ---
Date of Service March 09, 2023 Assessment & Plan (1) Foreign body in genitourinary tract: Plan: -Noted insertion of foreign body in urethra on KUB -Consulted urology, scheduled for cystoscopy this evening -Will monitor urine output closely after procedure with recommendations from urology -Deferring antibiotic prophylaxis at present since pt urgently going to OR for cystoscopy (2) Gastrointestinal foreign body: Plan: -Noted ingestion of multiple foreign bodies/likely batteries in GI tract on KUB -Consulted gastroenterology, anticipate endoscopy removal in AM -Strict NPO including home medications at present (3) Suicidal ideation: Plan: -Pt presents with suicidal ideation and recent foreign body ingestion/insertion with reported motivation of self-harm, may be possible suicide attempt -Continue constant observation with [facility] guards in room -Psychiatry consult placed for AM (4) Psychiatric illness: Plan: -Extensive psychiatric history including schizophrenia/possible schizoaffective, depression, anxiety, antisocial personality disorder -On multiple psychotropic medications- Abilify 5 mg daily, Haldol 10 mg BID, lithium 300 mg BID, Remeron 60 mg Hs, Paxil 20 mg daily -Holding home meds while strict NPO (5) Chronic anemia: Plan: -History of chronic microcytic anemia, Hgb 12.3 on admission -Low suspicion for acute bleeding at present -Monitor CBC, added ferritin and iron to AM labs (6) Schizophrenia: Plan: -See above (7) Anxiety: Plan: -See above (8) Depression: Plan: -See above (9) History of pulmonary embolism: Plan: -Noted history of PE previously on Eliquis in past -Will resume DVT ppx post-procedure for foreign body extraction- with Lovenox Plan FENGI: Strict NPO Code status: Full DVT prophylaxis: Deferring chemoprophylaxis for now given procedures Isolation: None Disposition: Medical/surgical History of Present Illness Chief Complaint: Foreign body ingestion/insertion Primary Care Provider: [facility] Pt is 23 yo inmate at [facility] with PMH antisocial personality disorder, anxiety, depression, schizophrenia, anemia, history of pulmonary embolism presenting with foreign body ingestion/insertion. Pt states he accidentally bit and swallowed a battery yesterday out of curiosity about its composition. He reports onset of acute suicidal ideation earlier this noon without clear trigger/precpitant, reports desire to kill himself by swallowing different harmful objects. Throughout the day, he swallowed multiple batteries and had wrapped string around them with a makeshift hook to prevent the batteries from being safely pulled out. He also inserted a pen into his urethra and has not been able to void since. Pt arrived to ER hemodynamically stable. Initial evaluation significant for Hgb 12.3, MCV 75. CBC, CMP, CXR unremarkable. KUB with 3 metal foreign bodies in LUQ each measuring 6 cm and suspected to be batteries, another noted in rectum, multiple foreign bodies overlying bladder/penis/pelvis measuring up to 8 cm noted as well. At present, pt reports moderate abdominal pain in LUQ and pain along penile shaft. Denies any new complaints. He did ask for a sitter to be placed in room for constant observation multiple times. Stated if he did not get sitter, would attempt to swallow more foreign objects and gestured to pulse oximeter. Allergies Allergy/AdvReac Type Severity Reaction Status Date / Time No Known Allergies Allergy Verified 03/10/23 09:36 Home Medications Medication Instructions Recorded Confirmed Type lithium carbonate 300 mg capsule 600 mg PO HS 03/25/22 03/09/23 History paroxetine HCl 10 mg tablet 20 mg PO HS 03/25/22 03/09/23 History aripiprazole 5 mg tablet 5 mg PO HS 05/31/22 03/09/23 History diphenhydramine HCl 50 mg tablet 50 mg PO HS 03/09/23 03/09/23 History haloperidol 10 mg tablet 20 mg PO HS 03/09/23 03/09/23 History metoprolol tartrate 25 mg tablet 25 mg PO BID 03/09/23 03/09/23 History mirtazapine 15 mg tablet 15 mg PO HS 03/09/23 03/09/23 History Past Med/Surg History Medical History Aggression Antisocial behavior Antisocial personality disorder Anxiety Auditory hallucination Chronic anemia Constipation Depression Foreign body Foreign body in stomach Foreign body in stomach Foreign body in urethra Foreign body in urethra Foreign body ingestion Foreign body of rectum H/O swallowed foreign body 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 Microcytic anemia Pulmonary emboli Schizophrenia Self-harming behavior Small bowel obstruction Suicidal ideation Surgical History H/O cystoscopy H/O esophagogastroduodenoscopy H/O exploratory laparotomy Social History Smoking Status: Never smoker Tobacco Type: Cigarettes Second Hand Exposure: No; Do You Dip or Chew Tobacco: No; Hx Alcohol Use: No Hx Substance Use: No Preferred Language: Vietnamese Communication Ability: Effective [employer] Required: No Beliefs That Will Affect Care: None marital status: Single Current Living Situation: Other Current Living Situation Comment: alf How many Children do You have: 0 Feels Safe at Home: Yes Assistive Devices: None Review of Systems Review of Systems: Per HPI Physical Exam Physical Exam: General: well-appearing, no acute distress HEENT: PERRL, EOMI, conjunctivae clear without injection, anicteric sclerae, moist mucous membranes, visible white foreign body/string present in mouth Neck: supple, trachea midline, no thyromegaly, no JVD, no cervical lymphadenopathy CV: RRR, normal S1 and S2, no murmurs Resp: CTAB, no increased work of breathing, no crackles or wheezes Abd: Soft, distended, tender to LUQ without guarding or rebound, no hepatosplenomegaly MSK: Normal bulk of all four extremities Neuro: AOx3, no focal motor or sensory deficits Skin: no rashes or lesions, warm and dry : tender to minimal palpation along penile shaft, no visible foreign body protrusion out of urethra Ext: no LE peripheral edema or erythema, capillary refill <2s in all four extremities, 2+ LE peripheral pulses b/l Results & Data Results & Data Vital Signs (Past 12 Hours) Vital Signs Temp Pulse Resp BP Pulse Ox O2 Del Method 03/09/23 21:00 75 16 98 Room Air 03/09/23 20:40 81 03/09/23 20:37 86 19 120/76 98 Room Air 03/09/23 14:54 37.0 C 105 H 20 122/67 96 Room Air Code Status & VTE Plan VTE Prophylaxis Plan VTE Prophylaxis will be ordered: Yes Supervising Physician Co-Signing Physician Notes Attending addendum: I have physically seen this patient, have supervised the medical residents activities, and agree with the H&P unless as otherwise noted. Assessment and Plan: Foreign body in genitourinary tract- Patient reportedly inserted pen into his penis and per urology radiologic assessment was likely in the bladder Patient was being taken to the OR evening of admission for urologic treatment Gastrointestinal foreign body CT scan notes at least 3 batteries in the stomach, and there is question of a metallic hook with a string wrapped around the batteries and the patient has a extending out his mouth and is tied onto his shirt N.p.o. Pantoprazole 40 mg IV daily Patient will be taken to the OR by gastroenterology tomorrow for treatment Suicidal ideation- Multiple previous admissions for similar presentation Patient will be Seen by survey compiler Activity Tracking Resident Involvement: Resident Care Provided Care Provided: Adult Hospital Medicine (6) Schizophrenia Schizophrenia type: unspecified Qualified Code(s): F20.9 - Schizophrenia, unspecified (8) Depression Depression Type: unspecified Qualified Code(s): F32.A - Depression, unspecified
[2023-03-09] MEDS ORDERED: LIDOCAINE 2% 2 ML VIAL/AMP(20MG/ML) INFIL ONE ×3 (22:05)
[2023-03-09] MEDS ORDERED: ceFAZolin 2000MG 2,000 MG/15 ML SYR IV ONE ×2 (22:35→22:45)
--- NOTE | 2023-03-09 22:38 | Ultrasound Report ---
Exam(s): US BLADDER EXAM: US Bladder CLINICAL HISTORY: poss fb bladder. TECHNIQUE: Real-time ultrasound of the bladder with image documentation. COMPARISON: CT abdomen and pelvis 06/06/2022 FINDINGS: Scattered echogenic foci noted throughout the central aspect of the bladder. No layering material identified. No radiopaque foreign body. No lateral wall thickening. The ureteral jets are not identified. No fluid noted within the pelvis. IMPRESSION: Scattered echogenic foci noted throughout the central aspect of the bladder is a nonspecific finding but suggests proteinaceous material. This may be seen with infection or nephrotic syndrome. No layering material identified. No radiopaque foreign body. Electronically signed by: Jose L Bliss MD 03/09/23 22:38 PM
--- NOTE | 2023-03-09 22:56 | Operative Report ---
PG Post Operative Report Pre & Post Diagnosis Operation Date: 03/09/23 21:30 Pre-Op Diagnosis: Foreign body in genitourinary tract Post-Op Diagnosis: Foreign body in genitourinary tract I identified the patient and participated in the time-out.: Yes Procedure Operation Date: 03/09/23 21:30 Actual Procedures p Cystoscopy with Grasper Extraction of Foreign Body x2. Evacuation/Irrigation of debris from bladder. - José Luis Burton, Surgeon José Luis Burton, II, DO Acquisition Lead None Estimated Blood Loss 1 Findings Consistent with Post-Op Diagnosis Foreign body at pendulous urethra wrapped in paper removed/extracted with grasper. Flexible plastic foreign body extracted from bulbar/prostatic/bladder neck/trigone. Large debris within bladder likely paper product that appeared to be wrapped rashaun und foreign bodies. 30 and 70 degree scope utilized to visualize the entire bladder. No additional foreign bodies. Specimens Foreign bodies x 2 Drains None Anesthesia Type General Complications none Disposition Disposition: Recovery Room Indications Patient with obstruction from foreign body placed into urethra. Risks and benefits discussed at length. Description of Procedure Patient was consented and brought back to the operating room. Patient was placed under anesthesia in the supine position and moved to the dorsal lithotomy position. Patient was prepped and draped in the regular sterile fashion. A time out was completed. A 30degree Cystoscope was placed into the urethra. Within the pendulous urethra a foreign body was discovered. It was grasped and removed. It appeared to be wrapped in a paper product. The scope was replaced. Within the bulbar urethra a flexible plastic elongated foreign body was encountered and was impacted into the distal edge of the bulbar urethra. The grasper was used to grasped the device. It appeared to have a small irritation/injury in the bulbar urethra but no major bleeding or tear of the tissue. The foreign body appeared to be partially in the bladder and within the bladder neck, prostatic urethra, and bulbar urethra. Once grasped it was removed with out issues. The entire urethra was inspected. No other injuries or areas of concern. The scope advanced to the bladder and the entire bladder was examined. The UO's were identified. Large debris, possibly paper product was flushed repeatedly from the bladder. The debris was evacuated. A small blood clot was also evacuated. Once clear the bladder was fully inspected. The 30 degree scope was removed and a 70 degree lens was placed. The bladder was then fully inspected a second time with the 70 degree scope and no masses, lesions, or other areas of concern. No injuries. No additional foreign body or abnormal findings. The bladder was emptied. The bladder was then once again inspected. No injuries or areas of concern. The bladder was then emptied. The scope was removed. The patient was cleaned, aroused from anesthesia, and transferred to the pacu in stable condition having tolerated the procedure well with no complications. I was present and participated in all aspects of the procedure. The patient will be monitored in the PACU until transferred. Patient will be admitted by medicine with impending GI intervention due to foreign body in upper GI tract and in rectum. Preoperatively patient was once again encouraged to avoid placing foreign bodies in the urinary system. Stable from standpoint after removal of foreign bodies. Followup as needed. I attest to the content of the Intraoperative Record and any orders documented therein. Any exceptions are noted below.
--- NOTE | 2023-03-09 23:11 | Anesthesiology Progress Note ---
Date of Service March 09, 2023 Anesthesia Post Procedure Vital Signs Vital Signs: Temp Pulse Pulse Resp BP BP Pulse Ox 03/09/23 23:00 36.7 C 83 18 136/56 L 95 03/09/23 21:30 85 20 123/87 99 03/09/23 21:24 80 18 134/84 99 03/09/23 21:00 75 16 98 03/09/23 20:40 81 03/09/23 20:37 86 19 120/76 98 03/09/23 14:54 37.0 C 105 H 20 122/67 96 O2 Del Method 03/09/23 23:00 Room Air 03/09/23 21:30 Room Air 03/09/23 21:24 Room Air 03/09/23 21:00 Room Air 03/09/23 20:40 03/09/23 20:37 Room Air 03/09/23 14:54 Room Air Pain Intensity Penis: Pain Intensity: 8 Transfer of Care Handoff Completed per policy Notes Mental Status: alert / awake / arousable Patient Amnestic to Procedure: Yes Nausea / Vomiting: adequately controlled Pain: adequately controlled Airway Patency, RR, SpO2: stable & adequate BP & HR: stable & adequate Hydration State: stable & adequate Anesthetic Complications: no major complications apparent
[2023-03-10] MEDS ORDERED: MoRPHine SULFATE 2 MG/ML CARP IV STA ×2 (00:33→08:15)
[2023-03-10] MEDS: OLANZapine 10 MG/2.1 ML SDV IM PRN ×3 (01:01→19:55)
[2023-03-10 06:10] LABS: Hematocrit (blood only) 35.2 % (42.0-52.0); Hemoglobin 11.3 g/dl (14.0-18.0); Mean Corpuscular Hemoglobin 24.1 pg (25.0-34.0); Mean Corpuscular Hgb Conc 32.1 g/dL (32.0-36.0); Mean Corpuscular Volume 75.1 fL (80.0-100.0); Mean Platelet Volume 11.3 fL (9.4-12.4); Platelet Count 235 K/uL (130-400); RDW Coefficient of Variation 15.1 % (11.5-14.5); RDW Standard Deviation 40.1 fL (36.4-46.3); Red Blood Count 4.69 M/uL (4.70-6.10); White Blood Count 8.61 K/ul (4.8-10.8)
[2023-03-10 06:27] LABS: Albumin Globulin Ratio 1.2 (0.9-2); Albumin Level 3.8 gm/dl (3.4-5.0); BUN Creatinine Ratio 12.5 (10-20); Bilirubin,Total 0.7 mg/dl (0.2-1.0); Creatinine Clr Calc Pharmacy 98.9 ml/min; Est GFR (African American) 98.2 ml/min; Est GFR (Non-African American) 84.7 ml/min; Globulin 3.1 gm/dl (2.5-4.0); Potassium 3.8 mmol/L (3.5-5.1); Total Protein 6.9 gm/dl (6.0-8.3)
[2023-03-10 06:46] LABS: Ferritin 54.1 ng/ml (8-388)
--- NOTE | 2023-03-10 06:56 | Hospitalist Progress Note ---
Date of Service March 10, 2023 Assessment & Plan (1) Foreign body in genitourinary tract: Plan: 23 y/o male here with foreign body ingestion and foreign body insertion into the urethra admitted for cytoscopy and endoscopy. #Foreign body in tract Pen inserted into urethra. Removed by urology via cystoscopy. Monitor urine output and creatinine. #Gastrointestinal foreign body Multiple AA batteries in the GIT noted on KUB. Gastro on board - plan for scope today. NPO for procedure If unable to retrieve via endoscopy would recommend Miralax to facilitate passage of the foreign body #Suicidal Ideation Patient with significant psychiatric history and multiple personality disorders. Psych deferred consult as no interventions indicated. Can adjust lithium dosing if kidney function changes. Continue home meds. Continue constant observation #Psychiatric Illness Schizophrenia vs schizoaffective with anxiety, depression, and antisocial personality disorder. On Abilify 5 mg QD, Haldol 10 mg BID, lithium 300 mg BID, Remeron 60 mg HS, and Paxil 20 mg QD. Holding with NPO. Will resume after procedure. #Chronic Anemia Hx of microcytic anemia. Hb 12.3 on admit. Low suspicion for acute bleed. Iron and ferritin WNL. #Hx of PE Noted history of PE previously on Eliquis in past. Will resume DVT ppx post- procedure for foreign body extraction - with Renetta LAGUNAS: Strict NPO Code status: Full DVT prophylaxis: Deferring chemoprophylaxis for now given procedures Isolation: None Disposition: Medical/surgical (2) Gastrointestinal foreign body: (3) Suicidal ideation: (4) Psychiatric illness: (5) Chronic anemia: (6) Schizophrenia: (7) Anxiety: (8) Depression: (9) History of pulmonary embolism: Admission and Anticipated Discharge Date Admission Date: March 09, 2023 Supervising Physician Co-Signing Physician Notes I personally examined the patient and verified all tirado points of history and exam, discussed case, and agree with decision making with Dr Michelle some abdominal pain. seen after EGD. GI and input appreciated. Foreign body in genitourinary tract- -urology input appreciated Gastrointestinal foreign body -GI EGD appreciated. -serial exams/KUB, liquid diet, miralax until passes remaining batteries Subjective Patient seen at bedside this AM. Reports continued abdominal pain/burning. No fevers or chills. No nausea or vomiting. Review of Systems Review of Systems: Per HPI Physical Exam Physical Exam: General: well-appearing, no acute distress HEENT: AT NC PERRL, EOMI Neck: supple, trachea midline CV: clinically well perfused Resp: no increased work of breathing, Abd: exam deferred MSK: Normal bulk of all four extremities Neuro: AOx3, no focal motor or sensory deficits Skin: no rashes or lesions, warm and dry Ext: clinically well perfused, no obvious rashes or bruising Results & Data Results & Data Vital Signs (Past 12 Hours) Vital Signs Temp Pulse Pulse Pulse Resp BP BP 03/10/23 03:01 36.6 C 55 L 16 120/74 03/10/23 02:00 36.6 C 55 L 16 127/69 03/10/23 01:00 36.9 C 89 16 146/73 H 03/10/23 00:33 36.9 C 71 16 137/73 03/10/23 00:21 36.6 C 74 16 123/68 03/09/23 23:21 36.4 C L 71 20 126/76 03/09/23 23:10 36.7 C 81 18 128/81 03/09/23 23:00 36.7 C 83 18 136/56 L 03/09/23 21:30 85 20 123/87 03/09/23 21:24 80 18 134/84 03/09/23 21:00 75 16 03/09/23 20:40 81 03/09/23 20:37 86 19 120/76 Pulse Ox O2 Del Method 03/10/23 03:01 98 Room Air 03/10/23 02:00 96 Room Air 03/10/23 01:00 97 Room Air 03/10/23 00:33 98 Room Air 03/10/23 00:21 98 Room Air 03/09/23 23:21 96 Room Air 03/09/23 23:10 92 Room Air 03/09/23 23:00 95 Room Air 03/09/23 21:30 99 Room Air 03/09/23 21:24 99 Room Air 03/09/23 21:00 98 Room Air 03/09/23 20:40 03/09/23 20:37 98 Room Air Laboratory Results 03/10/23 05:44 03/10/23 05:44 Resident Activity Tracking Resident Involvement: Resident Care Provided Care Provided: Adult Hospital Medicine (6) Schizophrenia Schizophrenia type: unspecified Qualified Code(s): F20.9 - Schizophrenia, unspecified (8) Depression Depression Type: unspecified Qualified Code(s): F32.A - Depression, unspecified
--- NOTE | 2023-03-10 08:05 | XRay Report ---
KUB HISTORY: Follow-up study in a patient with foreign body ingestion check batteries location COMPARISON: 03/09/2023 FINDINGS: Nonobstructive bowel gas pattern. There are four 6 cm batteries projected over the abdomina l left upper quadrant, possibly within the splenic flexure. No renal calculi. No ureteral calculi. N o pneumoperitoneum or pneumatosis. No fracture. IMPRESSION: 1. Nonobstructive bowel gas pattern. 2. Four 6 cm batteries projected over the abdominal left upper quadrant, possibly within the splenic flexure. ACT 112: Negative or not required by law. The above report was generated using voice recognition software. It may contain grammatical, syntax o r spelling errors. Electronically signed by: Bernardino Rome M.D. 03/10/2023 8:03 AM
[2023-03-10] MEDS: METOPROLOL TARTRATE 25 MG TAB PO SCH ×2 (08:18→19:57)
--- NOTE | 2023-03-10 08:57 | Gastrointestinal Consultation ---
Date of Consultation March 10, 2023 Assessment & Plan (1) Gastric foreign body: 23 year old male with recurrent admissions for foreign body ingestion and foreign body implantation into the urethra NPO for EGD this AM for attempted removal of ingested foreign body Strict NPO Additional recommendations/plans pending results of EGD We appreciate assistance in the management of any serological abnormality and corrections to include: hemoglobin >7, INR <2, platelets >50,000, potassium levels >3.5 but <5.3, and sodium levels within 5 points of the reference range prior to endoscopic evaluation. Thank you for allowing us to participate in the care of this patient. Please call with any acute changes, questions or concerns. Please see addendum below with additional recommendation from my supervising physician. Supervising Physician Co-Signing Physician Notes I performed a history and physical examination of the patient today, including specifically on physical exam - soft abdomen. I have discussed the patient's management with the advanced practitioner. Please refer to the nurse practitioner's note for the documented findings and plan of care. EGD today Patient was explained in detail regarding risks, benefits, limitations and alternatives of the above endoscopic procedure. Risks of intravenous sedation used for procedure were also explained. Risks include, but not limited to perforation, bleeding, infection, respiratory distress, cardiac arrest and . Patient is also aware about the possibility of missed lesion. Patient's questions were answered. The patient verbalized understanding the information an d agreed to undergo the procedure. History of Present Illness Reason for Consultation: ingested foreign body Requesting Physician: Pippa Attending Physician: Tigre Das DO History of Present Illness 23 year old male with recurrent admissions for foreign body ingestion and foreign body implantation into the urethra - GI asked to evaluate for ingested foreign body which occurred about 24hours ago, prior to admission. He notes multiple foreign body ingestion including batteries. He reports midline abd pain this AM but no nausea/vomiting. Denies black or bloody stools. KUB 2022: Four 6 cm batteries projected over the abdominal left upper quadrant, possibly within the splenic flexure. KUB 2022: Multiple buttons on the right side of the abdomen which are likely external to the patient. There are 3 metallic foreign bodies within the left upper quadrant of the abdomen each measuring approximately 6 cm. These likely reside within the stomach consistent with batteries. There is suture material in the left upper quadrant. There is an additional 6 cm metallic foreign body within the expected location of the rectum. This also likely represents a bat marilyn. There are additional tubular radiopaque foreign bodies overlying the expected location of the bladder/rectum and penis. These measure up to 8 cm in length. No evidence for a bowel obstruction. No renal calculi. No ureteral calculi. No pneumoperitoneum or pneumatosis. Allergies Allergy/AdvReac Type Severity Reaction Status Date / Time No Known Allergies Allergy Verified 03/10/23 09:36 Home Medications Medication Instructions Recorded Confirmed Type lithium carbonate 300 mg capsule 600 mg PO HS 03/25/22 03/09/23 History paroxetine HCl 10 mg tablet 20 mg PO HS 03/25/22 03/09/23 History aripiprazole 5 mg tablet 5 mg PO HS 05/31/22 03/09/23 History diphenhydramine HCl 50 mg tablet 50 mg PO HS 03/09/23 03/09/23 History haloperidol 10 mg tablet 20 mg PO HS 03/09/23 03/09/23 History metoprolol tartrate 25 mg tablet 25 mg PO BID 03/09/23 03/09/23 History mirtazapine 15 mg tablet 15 mg PO HS 03/09/23 03/09/23 History Patient History Medical History Aggression Antisocial behavior Antisocial personality disorder Anxiety Auditory hallucination Chronic anemia Constipation Depression Foreign body Foreign body in stomach Foreign body in stomach Foreign body in urethra Foreign body in urethra Foreign body ingestion Foreign body of rectum H/O swallowed foreign body 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 Malingerer Microcytic anemia Pulmonary emboli Schizophrenia Self-harming behavior Small bowel obstruction Suicidal ideation Surgical History H/O cystoscopy H/O esophagogastroduodenoscopy H/O exploratory laparotomy Social History Smoking Status: Never smoker Tobacco Type: Cigarettes Second Hand Exposure: No; Do You Dip or Chew Tobacco: No; Hx Alcohol Use: No Hx Substance Use: No Preferred Language: Ukrainian Communication Ability: Effective Basketball Referee Required: No Beliefs That Will Affect Care: None marital status: Single Current Living Situation: Other Current Living Situation Comment: residential How many Children do You have: 0 Feels Safe at Home: Yes Assistive Devices: None Review of Systems Review of Systems: All systems reviewed & are unremarkable except as noted in HPI & below Physical Exam Constitutional: WD/WN, vitals as above Respiratory: normal respiratory effort Cardiovascular: Rate/Rhythm: regular rate and regular rhythm Gastrointestinal (Abdomen): Percussion/Palpation: + abdomen tender and abdomen soft; no guarding and abdomen not rigid Skin: no rashes, warm and dry Results & Data Vital Signs (Past 12 Hours) Vital Signs Temp Pulse Pulse Pulse Pulse Resp BP 03/10/23 07:00 36.6 C 54 L 16 03/10/23 03:01 36.6 C 55 L 16 03/10/23 02:00 36.6 C 55 L 16 03/10/23 01:00 36.9 C 89 16 03/10/23 00:33 36.9 C 71 16 03/10/23 00:21 36.6 C 74 16 03/09/23 23:21 36.4 C L 71 20 03/09/23 23:10 36.7 C 81 18 03/09/23 23:00 36.7 C 83 18 03/09/23 21:30 85 20 123/87 03/09/23 21:24 80 18 134/84 03/09/23 21:00 75 16 BP BP Pulse Ox O2 Del Method 03/10/23 07:00 130/67 98 Room Air 03/10/23 03:01 120/74 98 Room Air 03/10/23 02:00 127/69 96 Room Air 03/10/23 01:00 146/73 H 97 Room Air 03/10/23 00:33 137/73 98 Room Air 03/10/23 00:21 123/68 98 Room Air 03/09/23 23:21 126/76 96 Room Air 03/09/23 23:10 128/81 92 Room Air 03/09/23 23:00 136/56 L 95 Room Air 03/09/23 21:30 99 Room Air 03/09/23 21:24 99 Room Air 03/09/23 21:00 98 Room Air Laboratory Results 03/10/23 03/10/23 03/10/23 Range/Units 05:44 05:44 01:35 WBC 8.61 (4.8-10.8) K/ul RBC 4.69 L (4.70-6.10) M/uL Hgb 11.3 L (14.0-18.0) g/dl Hct 35.2 L (42.0-52.0) % MCV 75.1 L (80.0-100.0) fL MCH 24.1 L (25.0-34.0) pg MCHC 32.1 (32.0-36.0) g/dL RDW Std Deviation 40.1 (36.4-46.3) fL RDW Coeff of Bassem 15.1 H (11.5-14.5) % Plt Count 235 (130-400) K/uL MPV 11.3 (9.4-12.4) fL Immature Gran % (Auto) % Neut % (Auto) % Lymph % (Auto) % [place] % (Auto) % Eos % (Auto) % Baso % (Auto) % Neut # (Auto) (1.40-6.50) K/uL Lymph # (Auto) (1.20-3.40) K/uL [place] # (Auto) (0.11-0.59) K/uL Eos # (Auto) (0.00-0.50) K/uL Baso # (Auto) (0.00-0.20) K/uL Immature Gran # (Auto) (0.01-0.20) K/uL Sodium 140 (136-145) mmol/L Potassium 3.8 (3.5-5.1) mmol/L Chloride 105 (98-107) mmol/L Carbon Dioxide 31 (21-32) mmol/L Anion Gap 4 (3-11) BUN 15 (6-23) mg/dl Creatinine 1.20 (0.6-1.4) mg/dl Est Cr Clr Drug Dosing 98.9 ml/min Est GFR ( Amer) 98.2 ml/min Est GFR (Non-Af Amer) 84.7 ml/min BUN/Creatinine Ratio 12.5 (10-20) Glucose 85 (70-99(Fasting)) mg/dl Calcium 9.0 (8.6-10.3) mg/dl Iron 140 (35-175) mcg/dl Ferritin 54.1 (8-388) ng/ml Total Bilirubin 0.7 (0.2-1.0) mg/dl AST 21 (13-39) U/L ALT 40 (7-52) U/L Alkaline Phosphatase 47 (34-104) U/L Total Protein 6.9 (6.0-8.3) gm/dl Albumin 3.8 (3.4-5.0) gm/dl Globulin 3.1 (2.5-4.0) gm/dl Albumin/Globulin Ratio 1.2 (0.9-2) Nasal Screen MRSA (PCR) Negative (Negative) SARS-CoV-2 (PCR) (Negative) 03/10/23 03/09/23 03/09/23 Range/Units 01:34 17:28 17:28 WBC 10.01 (4.8-10.8) K/ul RBC 5.29 (4.70-6.10) M/uL Hgb 12.3 L (14.0-18.0) g/dl Hct 39.6 L (42.0-52.0) % MCV 74.9 L (80.0-100.0) fL MCH 23.3 L (25.0-34.0) pg MCHC 31.1 L (32.0-36.0) g/dL RDW Std Deviation 39.7 (36.4-46.3) fL RDW Coeff of Bassem 14.7 H (11.5-14.5) % Plt Count 286 (130-400) K/uL MPV 11.7 (9.4-12.4) fL Immature Gran % (Auto) 0.3 % Neut % (Auto) 80.0 % Lymph % (Auto) 14.5 % [place] % (Auto) 4.6 % Eos % (Auto) 0.4 % Baso % (Auto) 0.2 % Neut # (Auto) 8.01 H (1.40-6.50) K/uL Lymph # (Auto) 1.45 (1.20-3.40) K/uL [place] # (Auto) 0.46 (0.11-0.59) K/uL Eos # (Auto) 0.04 (0.00-0.50) K/uL Baso # (Auto) 0.02 (0.00-0.20) K/uL Immature Gran # (Auto) 0.03 (0.01-0.20) K/uL Sodium 139 (136-145) mmol/L Potassium 3.8 (3.5-5.1) mmol/L Chloride 103 (98-107) mmol/L Carbon Dioxide 26 (21-32) mmol/L Anion Gap 10 (3-11) BUN 15 (6-23) mg/dl Creatinine 1.24 (0.6-1.4) mg/dl Est Cr Clr Drug Dosing 95.7 ml/min Est GFR ( Amer) 94.4 ml/min Est GFR (Non-Af Amer) 81.4 ml/min BUN/Creatinine Ratio 12.1 (10-20) Glucose 89 (70-99(Fasting)) mg/dl Calcium 9.6 (8.6-10.3) mg/dl Iron (35-175) mcg/dl Ferritin (8-388) ng/ml Total Bilirubin 0.6 (0.2-1.0) mg/dl AST 26 (13-39) U/L ALT 55 H (7-52) U/L Alkaline Phosphatase 55 (34-104) U/L Total Protein 8.3 (6.0-8.3) gm/dl Albumin 4.4 (3.4-5.0) gm/dl Globulin 3.9 (2.5-4.0) gm/dl Albumin/Globulin Ratio 1.1 (0.9-2) Nasal Screen MRSA (PCR) (Negative) SARS-CoV-2 (PCR) NEGATIVE (Negative) (1) Gastric foreign body Encounter type: initial encounter Qualified Code(s): T18.2XXA - Foreign body in stomach, initial encounter
[2023-03-10] MEDS ORDERED: LACTATED RINGER'S 1,000 ML IV SCH (10:00)
[2023-03-10] MEDS ORDERED: PROPOFOL IV EMULSION 10 MG/ML 20 ML VIAL IV ONE (10:07)
[2023-03-10] MEDS ORDERED: SUCCINYLCHOLINE CHLORIDE 20 MG/ML 10 ML VIAL IV ONE (10:07)
--- NOTE | 2023-03-10 10:14 | Anesthesiology Consultation ---
Date of Service March 10, 2023 Assessment & Plan Chart Review Chart Review: Acceptable Risk for Surgery Consults Requested none History Surgery Operation Date: 03/09/23 21:30 Proposed Procedures p Cystoscopy - José Luis Burton DO Operation Date: 03/10/23 07:50 Proposed Procedures p Esophagogastroduodenoscopy - Aki Duval MD Operation Date: 03/10/23 16:55 Proposed Procedures p Esophagogastroduodenoscopy Dr Duval - Aki Duval MD Height/Weight Height: 5 ft 10 in Weight: 81 kg Allergies Allergy/AdvReac Type Severity Reaction Status Date / Time No Known Allergies Allergy Verified 03/10/23 09:36 Medications Home Medications Medication Instructions Recorded Confirmed Last Taken lithium carbonate 300 mg capsule 600 mg PO HS 03/25/22 03/09/23 03/08/23 paroxetine HCl 10 mg tablet 20 mg PO HS 03/25/22 03/09/23 03/08/23 aripiprazole 5 mg tablet 5 mg PO HS 05/31/22 03/09/23 03/08/23 diphenhydramine HCl 50 mg tablet 50 mg PO HS 03/09/23 03/09/23 03/07/23 haloperidol 10 mg tablet 20 mg PO HS 03/09/23 03/09/23 03/08/23 metoprolol tartrate 25 mg tablet 25 mg PO BID 03/09/23 03/09/23 03/01/23 mirtazapine 15 mg tablet 15 mg PO HS 03/09/23 03/09/23 03/08/23 Active Medications Generic Name Dose Route Start Last Admin Trade Name Omarq PRN Reason Stop Dose Admin Lactated Ringer's 1,000 mls @ 15 mls/hr 03/10/23 10:00 03/10/23 09:49 Lr IV 04/09/23 09:59 15 mls/hr .Q24H WAYNE Administration Metoprolol Tartrate 25 mg 03/10/23 09:00 03/10/23 08:18 Metoprolol Tartrate 25 Mg Tab PO 04/09/23 08:59 Not Given BID WAYNE Olanzapine 5 mg 03/10/23 00:32 03/10/23 01:01 Olanzapine 10 Mg/2.1 Ml Sdv IM 04/09/23 00:44 5 mg Q6H PRN Administration agitation NPO Date Last Intake of Fluids: 03/09/23 Time Last Intake of Fluids: 06:00 Date Last Intake of Solids: 03/09/23 Time Last Intake of Solids: 06:00 Past Medical History Medical History Aggression Antisocial behavior Antisocial personality disorder Anxiety Auditory hallucination Chronic anemia Constipation Depression Foreign body Foreign body in stomach Foreign body in stomach Foreign body in urethra Foreign body in urethra Foreign body ingestion Foreign body of rectum H/O swallowed foreign body 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 Malingerer Microcytic anemia Pulmonary emboli Schizophrenia Self-harming behavior Small bowel obstruction Suicidal ideation Past Surgical History Surgical History H/O cystoscopy H/O esophagogastroduodenoscopy H/O exploratory laparotomy Social History Smoking Status: Never smoker tobacco type: cigarettes Do You Dip or Chew Tobacco: No Hx Alcohol Use: No Hx Substance Use: No substance use type: does not use Physical Exam Vital Signs Last Vital Signs Temp 36.8 C 03/10/23 09:42 Pulse 77 03/10/23 09:42 Resp 20 03/10/23 09:42 BP 116/69 03/10/23 09:42 Pulse Ox 97 03/10/23 09:42 O2 Del Method Room Air 03/10/23 09:42 Testing Laboratory Results 03/10/23 05:44 03/10/23 05:44
[2023-03-10] MEDS ORDERED: ATROPINE SULFATE 0.1 MG/ML 10ML SYR IV PRN (10:15)
[2023-03-10] MEDS ORDERED: ePHEDrine sulfate 50 MG/ML AMP IV PRN (10:15)
[2023-03-10] MEDS ORDERED: POLYETHYLENE (MIRALAX) 17 GM PACK PO SCH (10:15)
[2023-03-10] MEDS ORDERED: fentaNYL citrate PF 100 MCG/2 ML VIAL IV PRN (10:15)
[2023-03-10] MEDS ORDERED: GLYCOPYRROLATE 0.2 MG/ML VIAL ONE (10:25)
--- NOTE | 2023-03-10 10:48 | Operative Report ---
Post Operative Report Pre & Post Diagnosis Operation Date: 03/10/23 16:55 <No data on this case meets the specified criteria> I identified the patient and participated in the time-out.: Yes Procedure Operation Date: 03/10/23 16:55 <No data on this case meets the specified criteria> Surgeon Aki Duval MD Silk Opener None Estimated Blood Loss 1 Findings See Below (One Battery removed from the stomach) Specimens None Description of Procedure EGD I attest to the content of the Intraoperative Record and any orders documented therein. Any exceptions are noted below.
--- NOTE | 2023-03-10 10:59 | GI REPORT ---
Patient Name: Stefan Simon Procedure Date: 03/10/2023 8:55 AM Date of : 2000 Admit Type: Inpatient Age: 23 Gender: Male Attending MD: Aki Duval MD, Procedure: Small bowel enteroscopy Providers: Aki Duval MD Referring MD: Kalyn ROBERSON Indications: Foreign body in the stomach Medicines: General Anesthesia Complications: No immediate complications. Estimated Blood Loss: Estimated blood loss: none. Procedure: Pre-Anesthesia Assessment: - Prior to the procedure, a History and Physical was performed, and patient medications, allergies and sensitivities were reviewed. The patient's tolerance of previous anesthesia was reviewed. - The risks and benefits of the procedure and the sedation options and risks were discussed with the patient. All questions were answered and informed consent was obtained. - Patient identification and proposed procedure were verified prior to the procedure by the physician and the nurse. The procedure was verified in the procedure room. - Pre-procedure physical examination revealed no contraindications to sedation. After obtaining informed consent, the endoscope was passed under direct vision. Throughout the procedure, the patient's blood pressure, pulse, and oxygen saturations were monitored continuously. The Endoscope was introduced through the mouth, and advanced to the second part of duodenum. The Colonoscope was introduced through the mouth and advanced to the mid-jejunum. After obtaining informed consent, the endoscope was passed under direct vision. Throughout the procedure, the patient's blood pressure, pulse, and oxygen saturations were monitored continuously.The small bowel enteroscopy was accomplished without difficulty. The patient tolerated the procedure well. Findings: The examined esophagus was normal. A battery was found in the gastric body. Removal of a battery was accomplished with a Raptor grasping device. A few small erosions with no bleeding and no stigmata of recent bleeding were found in the gastric body. There was no evidence of significant pathology in the entire examined duodenum. There was no evidence of significant pathology in the proximal jejunum. Impression: - Normal esophagus. - A battery was found in the stomach. Removal was successful. - Erosive gastropathy. - Normal examined duodenum. - The examined portion of the jejunum was normal. Recommendation: - [facility]. - Serial KUBs to follow the remaining 3 Batteries. - PPI. - Fill liquid diet. - Surgical consultation if they do no progress or patient develops pain. - Recall GI if needed. Aki Duval MD 03/10/2023 10:58:46 AM This report has been signed electronically. Note Initiated On: 03/10/2023 8:55 AM Number of Addenda: 0 I attest to the content of the Intraoperative Record and orders documented therein, exceptions below {[id number]}
--- NOTE | 2023-03-10 11:53 | Anesthesiology Progress Note ---
Date of Service March 10, 2023 Anesthesia Post Procedure Vital Signs Vital Signs: Temp Pulse Pulse Pulse Pulse Resp BP 03/10/23 11:48 36.4 C L 95 H 16 03/10/23 11:30 36.4 C L 97 H 12 03/10/23 11:20 101 H 18 03/10/23 11:10 106 H 17 03/10/23 11:02 36.1 C L 104 H 23 03/10/23 09:42 36.8 C 77 20 03/10/23 07:00 36.6 C 54 L 16 03/10/23 03:01 36.6 C 55 L 16 03/10/23 02:00 36.6 C 55 L 16 03/10/23 01:00 36.9 C 89 03/10/23 00:33 36.9 C 71 16 03/10/23 00:21 36.6 C 74 16 03/09/23 23:21 36.4 C L 71 20 03/09/23 23:10 36.7 C 81 18 03/09/23 23:00 36.7 C 83 18 03/09/23 21:30 85 20 123/87 03/09/23 21:24 80 18 134/84 03/09/23 21:00 75 16 03/09/23 20:40 81 03/09/23 20:37 86 19 120/76 03/09/23 14:54 37.0 C 105 H 20 122/67 BP BP Pulse Ox O2 Del Method 03/10/23 11:48 126/77 100 Room Air 03/10/23 11:30 118/73 100 Room Air 03/10/23 11:20 135/84 100 Room Air 03/10/23 11:10 151/73 H 99 Room Air 03/10/23 11:02 137/74 100 Room Air 03/10/23 09:42 116/69 97 Room Air 03/10/23 07:00 130/67 98 Room Air 03/10/23 03:01 120/74 98 Room Air 03/10/23 02:00 127/69 96 Room Air 03/10/23 01:00 146/73 H 97 Room Air 03/10/23 00:33 137/73 98 Room Air 03/10/23 00:21 123/68 98 Room Air 03/09/23 23:21 126/76 96 Room Air 03/09/23 23:10 128/81 92 Room Air 03/09/23 23:00 136/56 L 95 Room Air 03/09/23 21:30 99 Room Air 03/09/23 21:24 99 Room Air 03/09/23 21:00 98 Room Air 03/09/23 20:40 03/09/23 20:37 98 Room Air 03/09/23 14:54 96 Room Air Pain Intensity Penis: Pain Intensity: 8 Transfer of Care Handoff Completed per policy Notes Mental Status: alert / awake / arousable and participated in evaluation Patient Amnestic to Procedure: Yes Nausea / Vomiting: adequately controlled Pain: adequately controlled Airway Patency, RR, SpO2: stable & adequate BP & HR: stable & adequate Hydration State: stable & adequate Anesthetic Complications: no major complications apparent
[2023-03-10 13:26] LABS: Appearance Urine Clear (Clear); Bacteria Urine Automated Negative (Negative); Bilirubin Urine Negative (Negative); Blood Urine 3+ (Negative); Color Urine Yellow; Epithelial Cell Urine Auto 0-5 /lpf (0-5); Glucose Urine UA Negative (Negative); Ketones Urine Negative (Negative); Leukocyte Esterase Urine Trace (Negative); Nitrite Urine Negative (Negative); Protein Urine Negative (Negative); RBC Urine Automated >30 /hpf (0-4); Specific Gravity Urine 1.009 (1.000-1.030); Urobilinogen Urine Negative (Negative)
[2023-03-10] MEDS: POLYETHYLENE (MIRALAX) 17 GM PACK PO SCH ×2 (14:55→19:56)
--- NOTE | 2023-03-10 15:26 | Psychiatric Consultation ---
Date of Consultation March 10, 2023 Psych History History of Present Illness Patient is known to me from a previous stay. Although patient has expressed suicidal ideation, our service does not have additional intervention to recommend while receiving medical care on the floor. He is typically on 1-on-1 in addition to gaurds given his hx of ingestions of metal objects from tray/bed. He should return to the long term on suicide watch/long term safety protocols upon discharge until evaluated by his treating clinicians there. He is not a candidate for inpatient psychiatric care and we would not recommending changing his medications when he is being monitored for changes in bowel patterns due to foreign bodies. Should he develop a urinary blockage/change in creatinine or significant vomiting his lithium should be held as risk of toxicity. Consider monitoring QTc prolongation if requiring antiemetics given his polypharmacy. Unfortunately prisoners ingest or self injure with items for a variety of reasons, many of which include secondary gain and manipulating their environment and it's countertherapeutic to involve multiple psychiatric providers due to splitting. Dr. Das and Viviana aware to reach out if specific questions re: his care. Allergies Allergy/AdvReac Type Severity Reaction Status Date / Time No Known Allergies Allergy Verified 03/10/23 09:36 Home Medications Medication Instructions Recorded Confirmed Type lithium carbonate 300 mg capsule 600 mg PO HS 03/25/22 03/09/23 History paroxetine HCl 10 mg tablet 20 mg PO HS 03/25/22 03/09/23 History aripiprazole 5 mg tablet 5 mg PO HS 05/31/22 03/09/23 History diphenhydramine HCl 50 mg tablet 50 mg PO HS 03/09/23 03/09/23 History haloperidol 10 mg tablet 20 mg PO HS 03/09/23 03/09/23 History metoprolol tartrate 25 mg tablet 25 mg PO BID 03/09/23 03/09/23 History mirtazapine 15 mg tablet 15 mg PO HS 03/09/23 03/09/23 History Patient History Medical History Aggression Antisocial behavior Antisocial personality disorder Anxiety Auditory hallucination Chronic anemia Constipation Depression Foreign body Foreign body in stomach Foreign body in stomach Foreign body in urethra Foreign body in urethra Foreign body ingestion Foreign body of rectum H/O swallowed foreign body 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 Malingerer Microcytic anemia Pulmonary emboli Schizophrenia Self-harming behavior Small bowel obstruction Suicidal ideation Surgical History H/O cystoscopy H/O esophagogastroduodenoscopy H/O exploratory laparotomy Social History Smoking Status: Never smoker Tobacco Type: Cigarettes Second Hand Exposure: No; Do You Dip or Chew Tobacco: No; Hx Alcohol Use: No Hx Substance Use: No Preferred Language: Citizen Of [place] Communication Ability: Effective Flow Machine Operator Required: No Beliefs That Will Affect Care: None marital status: Single Current Living Situation: Other Current Living Situation Comment: long term How many Children do You have: 0 Feels Safe at Home: Yes Assistive Devices: None Physical Exam Vital Signs (Past 24 Hours): Last Vital Signs Temp 36.9 C 03/10/23 14:45 Pulse 89 03/10/23 14:45 Resp 14 03/10/23 14:45 BP 107/63 03/10/23 14:45 Pulse Ox 98 03/10/23 14:45 O2 Del Method Room Air 03/10/23 14:45 Results & Data (PSY) Medications Administered Metoprolol Tartrate (Metoprolol Tartrate 25 Mg Tab) 25 mg PO BID [facility] Stop: 04/09/23 08:59 Last Admin: 03/10/23 08:18 Dose: Not Given Documented By: CYNTHIA Olanzapine (Olanzapine 10 Mg/2.1 Ml Sdv) 5 mg IM Q6H PRN PRN Reason: agitation Stop: 04/09/23 00:44 Last Admin: 03/10/23 12:09 Dose: 5 mg Documented By: Admin: 03/10/23 01:01 Dose: 5 mg Documented By: JERICHO Polyethylene Glycol (Polyethylene (Miralax) 17 Gm Pack) 17 gm PO TID WAYNE Stop: 04/09/23 13:59 Last Admin: 03/10/23 14:55 Dose: 17 gm Documented By: CYNTHIA Coding Level of Care Code None Diagnoses
--- NOTE | 2023-03-10 16:07 | Billing Data ---
Date of Service March 10, 2023 Coding Level of Care Code 09077 INT INP/OBS CARE
[2023-03-10] MEDS ORDERED: POLYETHYLENE (MIRALAX) 17 GM PACK PO PRN (17:31)
[2023-03-10] MEDS ORDERED: SENNOSIDES 8.8 MG/5 ML UDC PO PRN (17:34)
--- NOTE | 2023-03-10 17:46 | Billing Data ---
Date of Service March 10, 2023 Coding Level of Care Code 71414 SUB INP/OBS CARE
[2023-03-10] MEDS: PANTOprazole 40 MG in SYRINGE 0 ML IV SCH (19:56)
[2023-03-10] MEDS: haloperidoL 5 MG TAB PO SCH (19:58)
[2023-03-10] MEDS: LITHIUM CARBONATE 300 MG TAB PO SCH (19:58)
[2023-03-10] MEDS: diphenhydrAMINE Capsule 25 MG CAP PO SCH (19:59)
[2023-03-10] MEDS: MIRTAZAPINE TAB 15 MG TAB PO SCH (20:00)
[2023-03-10] MEDS: PARoxetine HCL 20 MG TAB PO SCH (20:00)
[2023-03-10] MEDS: ARIPiprazole 5 MG TAB PO SCH (20:01)
--- NOTE | 2023-03-11 07:03 | Hospitalist Progress Note ---
Date of Service March 11, 2023 Assessment & Plan (1) Foreign body in genitourinary tract: Plan: 23 y/o male here with foreign body ingestion and foreign body insertion into the urethra admitted for cytoscopy and endoscopy now awaiting passage of batteries prior to d/c. #Foreign body in tract Pen inserted into urethra. Removed by urology via cystoscopy. Monitor urine output and creatinine. #Gastrointestinal foreign body Multiple AA batteries in the GIT noted on KUB. Removed 1 battery via endoscopy. Now awaiting passage of remaining batteries. On Miralax TID scheduled. Miralax WAYNE TID AM KUB #Suicidal Ideation Patient with significant psychiatric history and multiple personality disorders. Psych deferred consult as no interventions indicated. Can adjust lithium dosing if kidney function changes. Continue home meds. Continue constant observation #Psychiatric Illness Schizophrenia vs schizoaffective with anxiety, depression, and antisocial personality disorder. On Abilify 5 mg QD, Haldol 10 mg BID, lithium 300 mg BID, Remeron 60 mg HS, and Paxil 20 mg QD. Holding with NPO. Will resume after procedure. #Chronic Anemia Hx of microcytic anemia. Hb 12.3 on admit. Low suspicion for acute bleed. Iron and ferritin WNL. #Hx of PE Noted history of PE previously on Eliquis in past. Will resume DVT ppx post- procedure for foreign body extraction with Lovenox. JANNETH: FLD Code status: Full DVT prophylaxis: Lovenox SQ QD Isolation: None Disposition: Medical/surgical (2) Gastrointestinal foreign body: (3) Suicidal ideation: (4) Psychiatric illness: (5) Chronic anemia: (6) Schizophrenia: (7) Anxiety: (8) Depression: (9) History of pulmonary embolism: Admission and Anticipated Discharge Date Admission Date: March 09, 2023 Supervising Physician Co-Signing Physician Notes I personally examined the patient and verified all tirado points of history and exam, discussed case, and agree with decision making with Dr Michelle some abdominal pain. somewhat upset about diet restrictions, but expresses understanding whenever I discuss what were doing, and why. Vitals noted, in general he is awake alert pleasant no distress. Abdomen is soft nondistended may be mild diffuse tenderness no guarding rebound rigidity. Foreign body in genitourinary tract- -urology input appreciated Gastrointestinal foreign body -GI EGD appreciated. -serial exams/KUB, liquid diet, miralax until passes remaining batteriesShowing progress radiographically, no worry signs on exam Subjective Patient seen at bedside this AM. Reports continued abdominal pain/burning. No fevers or chills. No nausea or vomiting. Review of Systems Review of Systems: Per HPI Physical Exam Physical Exam: General: well-appearing, no acute distress HEENT: AT PR PERRL, EOMI Neck: supple, trachea midline CV: clinically well perfused Resp: no increased work of breathing, Abd: no obvious distension MSK: Normal bulk of all four extremities Neuro: AOx3, no focal motor or sensory deficits Skin: no rashes or lesions, warm and dry Ext: clinically well perfused, no obvious rashes or bruising Results & Data Results & Data Vital Signs (Past 12 Hours) Vital Signs Temp Pulse Resp BP Pulse Ox O2 Del Method 03/10/23 22:29 36.7 C 85 14 134/76 98 Room Air Resident Activity Tracking Resident Involvement: Resident Care Provided Care Provided: Adult Hospital Medicine (6) Schizophrenia Schizophrenia type: unspecified Qualified Code(s): F20.9 - Schizophrenia, unspecified (8) Depression Depression Type: unspecified Qualified Code(s): F32.A - Depression, unspecified
[2023-03-11] MEDS: POLYETHYLENE (MIRALAX) 17 GM PACK PO SCH ×3 (08:05→21:13)
[2023-03-11] MEDS: METOPROLOL TARTRATE 25 MG TAB PO SCH ×2 (08:06→21:11)
[2023-03-11] MEDS: PANTOprazole 40 MG in SYRINGE 0 ML IV SCH (08:06)
[2023-03-11] MEDS: OLANZapine 10 MG/2.1 ML SDV IM PRN ×3 (08:09→21:25)
--- NOTE | 2023-03-11 09:48 | XRay Report ---
KUB HISTORY: Follow-up foreign body COMPARISON: KUB 03/10/2023. FINDINGS: The bowel gas pattern is unremarkable. There are no dilated loops of small bowel to suggest an obstruction. No renal calculi. No ureteral calculi. No pneumoperitoneum or pneumatosis. There ar e 3 metallic foreign bodies within the left side of the abdomen consistent with ingested batteries. T hese may reside within the descending colon. These demonstrate mild distal migration compared to the prior study. No new radiopaque foreign bodies identified within the abdomen or pelvis. IMPRESSION: 1. There are 3 metallic foreign bodies within the left side of the abdomen consistent with ingested b atteries. These may reside within the descending colon. 2. Nonobstructive bowel gas pattern. ACT 112: Negative or not required by law. Electronically signed by: Richard Aburto M.D. 03/11/2023 9:47 AM
[2023-03-11] MEDS: ENOXAPARIN INJ 40 MG/0.4 ML SYR SQ SCH (14:24)
--- NOTE | 2023-03-11 16:22 | Billing Data ---
Date of Service March 11, 2023 Coding Level of Care Code 31421 SUB INP/OBS CARE MIN
[2023-03-11] MEDS: diphenhydrAMINE Capsule 25 MG CAP PO SCH (21:10)
[2023-03-11] MEDS: ARIPiprazole 5 MG TAB PO SCH (21:10)
[2023-03-11] MEDS: haloperidoL 5 MG TAB PO SCH (21:11)
[2023-03-11] MEDS: PARoxetine HCL 20 MG TAB PO SCH (21:12)
[2023-03-11] MEDS: LITHIUM CARBONATE 300 MG TAB PO SCH (21:12)
[2023-03-11] MEDS: MIRTAZAPINE TAB 15 MG TAB PO SCH (21:13)
[2023-03-11] MEDS: PANTOprazole 40 MG TAB PO SCH (21:24)
--- NOTE | 2023-03-12 08:27 | Hospitalist Progress Note ---
Date of Service March 12, 2023 Assessment & Plan (1) Foreign body in genitourinary tract: Plan: 23 y/o male here with foreign body ingestion and foreign body insertion into the urethra admitted for cytoscopy and endoscopy now awaiting passage of batteries prior to d/c. #Foreign body in tract Pen inserted into urethra. Removed by urology via cystoscopy. Monitor urine output and creatinine. #Gastrointestinal foreign body Four AA batteries in the GIT noted on KUB. Removed 1 battery via endoscopy and passed 1 in a BM. Now awaiting passage of remaining batteries. On Miralax TID scheduled. Miralax WAYNE TID AM KUB #Suicidal Ideation Patient with significant psychiatric history and multiple personality disorders. Psych deferred consult as no interventions indicated. Can adjust lithium dosing if kidney function changes. Continue home meds. Continue constant observation #Psychiatric Illness Schizophrenia vs schizoaffective with anxiety, depression, and antisocial personality disorder. On Abilify 5 mg QD, Haldol 10 mg BID, lithium 300 mg BID, Remeron 60 mg HS, and Paxil 20 mg QD. Holding with NPO. Will resume after procedure. #Chronic Anemia Hx of microcytic anemia. Hb 12.3 on admit. Low suspicion for acute bleed. Iron and ferritin WNL. #Hx of PE Noted history of PE previously on Eliquis in past. Will resume DVT ppx post- procedure for foreign body extraction with Lovenox. JOHNI: FLD Code status: Full DVT prophylaxis: Lovenox SQ QD Isolation: None Disposition: Medical/surgical (2) Gastrointestinal foreign body: (3) Suicidal ideation: (4) Psychiatric illness: (5) Chronic anemia: (6) Schizophrenia: (7) Anxiety: (8) Depression: (9) History of pulmonary embolism: Admission and Anticipated Discharge Date Admission Date: March 09, 2023 Supervising Physician Co-Signing Physician Notes I personally examined the patient and verified all tirado points of history and exam, discussed case, and agree with decision making with Dr Michelle sleeping comfortably, xray noted. allowed to rest. vitals noted nad sleeping comfortably breathing unlabored no accesdsory muscles good effort no focal neuro deficits at rest. otherwise as above Foreign body in genitourinary tract- -urology input appreciated Gastrointestinal foreign body -GI EGD appreciated. -serial exams/KUB, liquid diet, miralax until passes remaining batteriesShowing progress radiographically, appears to have 2 left to pass. has been stable. otherwise as above Subjective Patient seen at bedside this AM. Resting comfortably. Did have a BM and passed one of the batteries. Review of Systems Review of Systems: Per HPI Physical Exam Physical Exam: General: well-appearing, no acute distress HEENT: AT [place] PERRL, EOMI Neck: supple, trachea midline CV: clinically well perfused Resp: no increased work of breathing, Abd: no obvious distension MSK: Normal bulk of all four extremities Neuro: AOx3, no focal motor or sensory deficits Skin: no rashes or lesions, warm and dry Ext: clinically well perfused, no obvious rashes or bruising Results & Data Results & Data Vital Signs (Past 12 Hours) Vital Signs Temp Pulse Pulse Resp BP Pulse Ox O2 Del Method 03/12/23 07:21 36.7 C 57 L 16 121/81 99 Room Air 03/11/23 21:14 36.9 C 70 18 113/71 97 Room Air Resident Activity Tracking Resident Involvement: Resident Care Provided Care Provided: Adult Hospital Medicine (6) Schizophrenia Schizophrenia type: unspecified Qualified Code(s): F20.9 - Schizophrenia, unspecified (8) Depression Depression Type: unspecified Qualified Code(s): F32.A - Depression, unspecified
[2023-03-12] MEDS: POLYETHYLENE (MIRALAX) 17 GM PACK PO SCH ×3 (08:29→20:22)
[2023-03-12] MEDS: METOPROLOL TARTRATE 25 MG TAB PO SCH ×2 (08:29→20:22)
[2023-03-12] MEDS: ENOXAPARIN INJ 40 MG/0.4 ML SYR SQ SCH (08:30)
[2023-03-12] MEDS: PANTOprazole 40 MG TAB PO SCH ×2 (08:30→20:21)
[2023-03-12] MEDS: OLANZapine 10 MG/2.1 ML SDV IM PRN ×2 (08:32→20:38)
--- NOTE | 2023-03-12 12:50 | XRay Report ---
KUB HISTORY: batteries in stomach COMPARISON: KUB 03/11/2023. FINDINGS: There are now 2 batteries seen within the abdomen. These likely reside within the ascending colon and mid sigmoid colon. No dilated loops of bowel to suggest an obstruction. No renal calculi. No ureteral calculi. No pneumoperitoneum or pneumatosis. IMPRESSION: 1. There are now 2 metallic foreign bodies within the abdomen consistent with the patient's history o f congestive atelectasis. 2. Nonobstructive bowel gas pattern. ACT 112: Negative or not required by law. Electronically signed by: Richard Aburto M.D. 03/12/2023 12:49 PM
--- NOTE | 2023-03-12 16:54 | Billing Data ---
Date of Service March 12, 2023 Coding Level of Care Code 66268 SUB INP/OBS CARE
--- NOTE | 2023-03-12 19:11 | Communication Note ---
Date of Service: March 12, 2023 Pt notified nurse in late afternoon that he had inhaled a staple prior to arrival in the ED. He apparently could feel it traveling down his throat- per nursing, was coughing up some blood. Ordered XR neck. Report pending as of the time of this note. Resident Activity Tracking Resident Involvement: Resident Care Provided Care Provided: Adult Hospital Medicine
[2023-03-12] MEDS: ARIPiprazole 5 MG TAB PO SCH (20:19)
[2023-03-12] MEDS: haloperidoL 5 MG TAB PO SCH (20:20)
[2023-03-12] MEDS: diphenhydrAMINE Capsule 25 MG CAP PO SCH (20:20)
[2023-03-12] MEDS: MIRTAZAPINE TAB 15 MG TAB PO SCH (20:21)
[2023-03-12] MEDS: PARoxetine HCL 20 MG TAB PO SCH (20:21)
[2023-03-12] MEDS: LITHIUM CARBONATE 300 MG TAB PO SCH (20:21)
--- NOTE | 2023-03-13 06:55 | Hospitalist Progress Note ---
Date of Service March 13, 2023 Assessment & Plan (1) Foreign body in genitourinary tract: Plan: 23 y/o male here with foreign body ingestion and foreign body insertion into the urethra admitted for cystoscopy and endoscopy with new problem of staple in the oropharynx. #Staple Ingestion Patient reportedly snorted a staple prior to admission and can now feel it in his throat. Per my read the staple appears to be in the region of the epiglottis. Awaiting formal read. Likely will consult ENT for possible procedure. NPO #Foreign body in tract Pen inserted into urethra. Removed by urology via cystoscopy. Monitor urine output and creatinine. #Gastrointestinal foreign body Four AA batteries in the GIT noted on KUB. Removed 1 battery via endoscopy and passed 1 in a BM. Now awaiting passage of remaining batteries. On Miralax TID scheduled. Miralax WAYNE TID AM KUB #Suicidal Ideation Patient with significant psychiatric history and multiple personality disorders. Psych deferred consult as no interventions indicated. Can adjust lithium dosing if kidney function changes. Continue home meds. Continue constant observation #Psychiatric Illness Schizophrenia vs schizoaffective with anxiety, depression, and antisocial personality disorder. On Abilify 5 mg QD, Haldol 10 mg BID, lithium 300 mg BID, Remeron 60 mg HS, and Paxil 20 mg QD. #Chronic Anemia Hx of microcytic anemia. Hb 12.3 on admit. Low suspicion for acute bleed. Iron and ferritin WNL. #Hx of PE Noted history of PE previously on Eliquis in past. Will resume DVT ppx post- procedure for foreign body extraction with Lovenox. JANNETH: NPO Code status: Full DVT prophylaxis: Lovenox SQ QD Isolation: None Disposition: Medical/surgical (2) Gastrointestinal foreign body: (3) Suicidal ideation: (4) Psychiatric illness: (5) Chronic anemia: (6) Schizophrenia: (7) Anxiety: (8) Depression: (9) History of pulmonary embolism: (10) Foreign body in oropharynx: Admission and Anticipated Discharge Date Admission Date: March 09, 2023 Subjective 03/12 evening - MD made aware that patient snorted a staple prior to admission and now feels that it has moved into his throat. Having some discomfort with this. XR confirms the staple. Patient HDS with no increased work of breathing or respiratory distress. Awaiting formal read Seen at bedside this AM. Reports having throat pain. Review of Systems Review of Systems: Per HPI Physical Exam Physical Exam: General: well-appearing, no acute distress HEENT: AT [place] PERRL, EOMI Neck: supple, trachea midline CV: clinically well perfused Resp: no increased work of breathing, Abd: no obvious distension MSK: Normal bulk of all four extremities Neuro: AOx3, no focal motor or sensory deficits Skin: no rashes or lesions, warm and dry Ext: clinically well perfused, no obvious rashes or bruising Results & Data Results & Data Vital Signs (Past 12 Hours) Vital Signs Temp Pulse Resp BP Pulse Ox O2 Del Method 03/12/23 20:20 Room Air 03/12/23 20:53 36.7 C 68 18 115/57 L 98 Room Air (6) Schizophrenia Schizophrenia type: unspecified Qualified Code(s): F20.9 - Schizophrenia, unspecified (8) Depression Depression Type: unspecified Qualified Code(s): F32.A - Depression, unspecified
[2023-03-13] MEDS: ENOXAPARIN INJ 40 MG/0.4 ML SYR SQ SCH (08:30)
[2023-03-13] MEDS: PANTOprazole 40 MG TAB PO SCH (08:32)
[2023-03-13] MEDS: METOPROLOL TARTRATE 25 MG TAB PO SCH (08:32)
[2023-03-13] MEDS: POLYETHYLENE (MIRALAX) 17 GM PACK PO SCH ×2 (08:33→13:49)
--- NOTE | 2023-03-13 11:22 | XRay Report ---
KUB CLINICAL HISTORY: Follow-up ingested foreign bodies. FINDINGS: AP, portable, supine abdominal radiograph is compared to study dated 03/12/2023. There are 2 radiodense foreign bodies consistent with batteries projecting over the right upper quadrant. These are likely located within the colon. An additional small radiodense metallic foreign body projects ov er the right midabdomen. No bowel obstruction is seen. There are no abnormal abdominal calcifications . The bony structures appear intact. IMPRESSION: Persistent radiodense foreign bodies as above. Electronically signed by: Henrique Slaughter M.D. 03/13/2023 11:20 AM
--- NOTE | 2023-03-13 11:50 | XRay Report ---
XR soft tissue neck HISTORY: 23 years-old Male c/f foreign object (staple) COMPARISON: 04/03/2022 TECHNIQUE: 2 views of the soft tissues of the neck FINDINGS: There is a linear metallic density foreign body measuring approximately 2 cm projected over the gaston cula. No prevertebral edema or additional foreign body identified. IMPRESSION: 2 cm linear metallic density foreign body within the vallecula. ACT 112: Negative or not required by law. The above report was generated using voice recognition software. It may contain grammatical, syntax o r spelling errors. Electronically signed by: Bernardino Rome M.D. 03/13/2023 11:49 AM
[2023-03-13] MEDS ORDERED: ACETAMINOPHEN 325 MG TAB PO PRN (13:23)
--- NOTE | 2023-03-13 16:25 | Discharge Summary ---
Date of Service March 13, 2023 Admission HPI Per Admitting Provider Pt is 23 yo inmate at [facility] with PMH antisocial personality disorder, anxiety, depression, schizophrenia, anemia, history of pulmonary embolism presenting with foreign body ingestion/insertion. Pt states he accidentally bit and swallowed a battery yesterday out of curiosity about its composition. He reports onset of acute suicidal ideation earlier this noon without clear trigger/precpitant, reports desire to kill himself by swallowing different harmful objects. Throughout the day, he swallowed multiple batteries and had wrapped string around them with a makeshift hook to prevent the batteries from being safely pulled out. He also inserted a pen into his urethra and has not been able to void since. Pt arrived to ER hemodynamically stable. Initial evaluation significant for Hgb 12.3, MCV 75. CBC, CMP, CXR unremarkable. KUB with 3 metal foreign bodies in LUQ each measuring 6 cm and suspected to be batteries, another noted in rectum, multiple foreign bodies overlying bladder/penis/pelvis measuring up to 8 cm noted as well. At present, pt reports moderate abdominal pain in LUQ and pain along penile shaft. Denies any new complaints. He did ask for a sitter to be placed in room for constant observation multiple times. Stated if he did not get sitter, would attempt to swallow more foreign objects and gestured to pulse oximeter. Admission Exam Per Admitting Provider General: well-appearing, no acute distress HEENT: PERRL, EOMI, conjunctivae clear without injection, anicteric sclerae, moist mucous membranes, visible white foreign body/string present in mouth Neck: supple, trachea midline, no thyromegaly, no JVD, no cervical lymphadenopathy CV: RRR, normal S1 and S2, no murmurs Resp: CTAB, no increased work of breathing, no crackles or wheezes Abd: Soft, distended, tender to LUQ without guarding or rebound, no hepatosplenomegaly MSK: Normal bulk of all four extremities Neuro: AOx3, no focal motor or sensory deficits Skin: no rashes or lesions, warm and dry : tender to minimal palpation along penile shaft, no visible foreign body protrusion out of urethra Ext: no LE peripheral edema or erythema, capillary refill <2s in all four extremities, 2+ LE peripheral pulses b/l Principal Diagnosis foreign body Discharge Exam General: well-appearing, no acute distress HEENT: AT NC PERRL, EOMI Neck: supple, trachea midline CV: clinically well perfused Resp: no increased work of breathing, Abd: no obvious distension MSK: Normal bulk of all four extremities Neuro: AOx3, no focal motor or sensory deficits Skin: no rashes or lesions, warm and dry Ext: clinically well perfused, no obvious rashes or bruising Discharge Data Allergies Allergy/AdvReac Type Severity Reaction Status Date / Time No Known Allergies Allergy Verified 03/10/23 09:36 Consultations 03/09/23 20:49 ED Decision to Admit Stat 03/09/23 21:40 Consult Psychiatry Routine 03/10/23 00:19 Consult Gastroenterology Routine Consult Urology Routine 03/10/23 01:19 Consult Behavioral Health Liaison Routine 03/13/23 10:12 Consult Otolaryngology (Head and Neck) Routine 03/13/23 13:14 Burn CD for patient Stat Procedures Performed Operation Date: 03/10/23 16:55 <No data on this case meets the specified criteria> Ordered Studies Bladder Ultrasound 03/09/23 20:13 FINDINGS: Scattered echogenic foci noted throughout the central aspect of the bladder. No layering material identified. No radiopaque foreign body. No lateral wall thickening. The ureteral jets are not identified. No fluid noted within the pelvis. IMPRESSION: Scattered echogenic foci noted throughout the central aspect of the bladder is a nonspecific finding but suggests proteinaceous material. This may be seen with infection or nephrotic syndrome. No layering material identified. No radiopaque foreign body. Soft Tissue Neck X-Ray 03/12/23 19:03 FINDINGS: There is a linear metallic density foreign body measuring approximately 2 cm projected over the vallecula. No prevertebral edema or additional foreign body identified. IMPRESSION: 2 cm linear metallic density foreign body within the vallecula. KUB X-Ray 03/13/23 06:43 FINDINGS: AP, portable, supine abdominal radiograph is compared to study dated 03/12/2023. There are 2 radiodense foreign bodies consistent with batteries projecting over the right upper quadrant. These are likely located within the colon. An additional small radiodense metallic foreign body projects over the right midabdomen. No bowel obstruction is seen. There are no abnormal abdominal calcifications. The bony structures appear intact. IMPRESSION: Persistent radiodense foreign bodies as above. Hospital Course (1) Foreign body in genitourinary tract: 23 y/o male here with foreign body ingestion and foreign body insertion into the urethra admitted for cystoscopy and endoscopy with new problem of staple in the oropharynx. #Staple Ingestion Patient reportedly snorted a staple prior to admission and can now feel it in his throat. Per my read the staple appears to be in the region of the ep iglottis. ENT consult - per [facility] "I dont do any airway work over there. Would recommend you transfer the patient to a tertiary care center". Initiated transfer to [facility]. Transfer accepted by Dr. Simona Luis. Patient will need to go via jail transport - okayed with [facility]. #Foreign body in tract Pen inserted into urethra. Removed by urology via cystoscopy. Monitor urine output and creatinine. #Gastrointestinal foreign body Four AA batteries in the GIT noted on KUB. Removed 1 battery via endoscopy and passed 1 in a BM. Now awaiting passage of remaining batteries. On Miralax TID scheduled. AM KUB with batteries likely in the ascending colon per my read. Patient may have also swallowed an EKG lead noted on KUB 03/13. #Suicidal Ideation Patient with significant psychiatric history and multiple personality disorders. Psych deferred consult as no interventions indicated. Can adjust lithium dosing if kidney function changes. Continue home meds. Continue constant observation #Psychiatric Illness Schizophrenia vs schizoaffective with anxiety, depression, and antisocial personality disorder. On Abilify 5 mg QD, Haldol 10 mg BID, lithium 300 mg BID, Remeron 60 mg HS, and Paxil 20 mg QD. #Chronic Anemia Hx of microcytic anemia. Hb 12.3 on admit. Low suspicion for acute bleed. Iron and ferritin WNL. #Hx of PE Noted history of PE previously on Eliquis in past. Will resume DVT ppx post- procedure for foreign body extraction with Lovenox. JANNETH: LUIS Code status: Full DVT prophylaxis: Lovenox SQ QD Isolation: None Disposition: transfer to [place] (2) Gastrointestinal foreign body: (3) Suicidal ideation: (4) Psychiatric illness: (5) Chronic anemia: (6) Schizophrenia: (7) Anxiety: (8) Depression: (9) History of pulmonary embolism: (10) Foreign body in oropharynx: Total Time Total Time Spent Total Time Spent (In Minutes): <30 Discharge Plan Discharge Items Patient Disposition: Transfer Acute Care Hospital Reason For Visit: FOREIGN BODY INGESTION/INSERTION Discharge Diagnosis: foreign body ingestion Condition on Discharge: Fair Activity: Per Instructions section Non-emergency contact: Primary Care Provider Call non-emergency contact if: you have any medication questions and your pain is worsening Follow-up/Referrals: Kalyn ROBERSON [Primary Care Provider] - Diet: Regular Diet Comment: LUIS Arroyo Attending Provider Instructions: 23 y/o male here with foreign body ingestion and foreign body insertion into the urethra admitted for cystoscopy and endoscopy with new problem of staple in the oropharynx. #Staple Ingestion Patient reportedly snorted a staple prior to admission and can now feel it in his throat. Per my read the staple appears to be in the region of the epiglottis. ENT consult - per [facility] "I dont do any airway work over there. Would recommend you transfer the patient to a tertiary care center". Initiated transfer to [facility]. Transfer accepted by Dr. Simona Luis. Patient will need to go via jail transport - okayed with [facility]. #Foreign body in tract Pen inserted into urethra. Removed by urology via cystoscopy. Monitor urine output and creatinine. #Gastrointestinal foreign body Four AA batteries in the GIT noted on KUB. Removed 1 battery via endoscopy and passed 1 in a BM. Now awaiting passage of remaining batteries. On Miralax TID scheduled. AM KUB with batteries likely in the ascending colon per my read. Patient may have also swallowed an EKG lead noted on KUB 03/13. #Suicidal Ideation Patient with significant psychiatric history and multiple personality disorders. Psych deferred consult as no interventions indicated. Can adjust lithium dosing if kidney function changes. Continue home meds. Continue constant observation #Psychiatric Illness Schizophrenia vs schizoaffective with anxiety, depression, and antisocial personality disorder. On Abilify 5 mg QD, Haldol 10 mg BID, lithium 300 mg BID, Remeron 60 mg HS, and Paxil 20 mg QD. #Chronic Anemia Hx of microcytic anemia. Hb 12.3 on admit. Low suspicion for acute bleed. Iron and ferritin WNL. #Hx of PE Noted history of PE previously on Eliquis in past. Will resume DVT ppx post- procedure for foreign body extraction with Lovenox. JANNETH: FLD Code status: Full DVT prophylaxis: Lovenox SQ QD Isolation: None Disposition: transfer to [place] Pending Studies at Discharge: No Stand-Alone Forms: My [facility] Skilled Items Patient informed of condition?: Yes DNR: No Discharge Level of Care: Other Communicable Disease: No Discharge Prognosis: Stable Lines: None Urinary Catheter: No Medications and DC Order Prescriptions: New polyethylene glycol 3350 [Miralax] 17 gram Powder In Packet 17 g PO TID Qty: 30 0RF pantoprazole 40 mg Tablet,Delayed Release (Dr/Ec) 40 mg PO BID Qty: 60 0RF Continued diphenhydramine HCl 50 mg Tablet 50 mg PO HS Rx Instructions: crush and float in water metoprolol tartrate 25 mg Tablet 25 mg PO BID mirtazapine 15 mg Tablet 15 mg PO HS Rx Instructions: crush andfloat in water haloperidol 10 mg tablet 20 mg PO HS Rx Instructions: CRUSH and float paroxetine HCl 10 mg Tablet 20 mg PO HS Rx Instructions: crush and float in water lithium carbonate 300 mg Capsule 600 mg PO HS Rx Instructions: open capsule and float medication aripiprazole 5 mg Tablet 5 mg PO HS Rx Instructions: crush and float Discharge Orders: Discharge Order (Routine); Ordered 03/13/23 Ordered By: Angy Michelle Admission Data Admit Date/Time: 03/09/23 22:01 Attending Provider: Tigre Das Admit Provider: Alize Walls Primary Care Provider: [facility] Other Providers: Kevin Dumont ; Dotty Olivarez ; Amy Zamarripa ; Dwain Mills ; Radha Troncoso ; Shaun Crandall ; Sera Seymour ; Anne-Marie Walton ; Chelita Landon ; Kalyani Lucia ; Luc Villalobos ; Umberto Thapa ; Santiago Jeff ; Lisa Murray ; Claudio Shrestha ; Lyndsey Lomas ; Allyssa Mazariegos ; Aleida Owens ; Anitra Soni ; Aki Duval ; Jackson Mcnally ; Nicolás Bhat ; Caron Orona ; Henri Anderson Jr ; Mike Acosta ; Blake Keen ; Rubio Montaño ; Miranda Subramanian ; José Luis Burton ; Bindu Michaels ; Joya Corrigan ; Nakul Leslie ; Dimitrios De La Cruz ; Mary Ann Hernandez ; Aba Batista ; Anton Randall ; Anne-Marie Ervin ; Trevor Gilbert ; Tonja Orantes ; Dwain Garibay ; Wilber Hernandez ; Shaan Sanchez Supervising Physician Co-Signing Physician Notes I personally examined the patient and verified all tirado points of history and exam, discussed case, and agree with decision making with Dr Michelle Throat hurts and coughing up blood some. Extensive discussion on upper airway foreign body. Resident physician consulted ENT who noted that they do not do the type of procedure to remove this here. Otherwise he noted that he ate the metal from a inside of an earbudhe had been keeping it in his nasopharynx, and that that is probably the additional foreign body I am seeing. Vitals noted, in general he is awake and alert pleasant no distress. HEENT normocephalic atraumatic mucous membranes moist. Breathing unlabored no accessory muscle use good effort. Skin shows no rashes no pallor or icterus. Neuro without focal deficits. Foreign body in genitourinary tract- -urology input appreciated Gastrointestinal foreign body -GI EGD appreciated. -Overall stable. Foreign bodies are progressing, did have an additional 1. Would recommend head/sinus x-ray to see if he is hiding other metallic densities therebut given that he is being transferred, better served to be done at receiving facility. Staple in his valleculafor transfer for ENT removal as we are informed ENT here is not able to do this in the hospital. otherwise as above Resident Activity Tracking Resident Involvement: Resident Care Provided Care Provided: Adult [facility] Medicine
--- NOTE | 2023-03-13 16:40 | Billing Data ---
Date of Service March 13, 2023 Coding Level of Care Code 32985 IN/OBS DISCH 30 MIN/LESS
== END 2023-03-13 20:16 | disposition short-term general hospital (02) | DRG 699 ==
LOC: ED 13:28 → OR 22:00 → SUATTDRO 22:01 → 3E 22:01